=== PATIENT | male | born 1950 | race Caucasian/White ===

== ENCOUNTER 2017-12-11 20:56 | Observation (INO) | payer MEDICARE, SELFPAY ==
[2017-12-11 20:57] VITALS: BP 160/72; PULSE 70; RESP 16; TEMP 36.9; O2SAT 92; BMI 31.7
--- NOTE | 2017-12-11 21:05 | RAD_ITS ---
STUDY: X-RAY CHEST REASON FOR EXAM: Male, 67 years old. Hemoptysis and pneumonia TECHNIQUE: Frontal and lateral views of the chest. COMPARISON: June 16, 2017 FINDINGS: Increasing right middle lobe consolidation. Lungs are otherwise clear. There is no demonstrated pleural abnormality. Normal size heart. Normal mediastinum and mercedes. Normal visualized pulmonary arteries. Normal visualized aortic arch and descending thoracic aorta. Normal visualized thoracic spine. Normal visualized ribs, clavicles, and shoulders. There is no demonstrated abnormality of the visualized soft tissue structures of the upper abdomen. RAD/Chest PA and Lateral IMPRESSION: Increasing right middle lobe consolidation Electronically Signed: Nikolay Costa MD at 21:31 EDT , Service support ,
[2017-12-11 21:50] VITALS: O2SAT 94
[2017-12-11 21:52] VITALS: BP 150/64; PULSE 66; RESP 20; O2SAT 95
--- NOTE | 2017-12-11 22:16 | EKG12_ITS ---
Test Reason : SOB Blood Pressure : / mmHG Vent. Rate : 057 BPM Atrial Rate : 057 BPM P-R Int : 160 ms QRS Dur : 106 ms QT Int : 450 ms P-R-T Axes : 039 -13 022 degrees QTc Int : 438 ms Sinus bradycardia Leftward axis Confirmed by SOPHIE PATTON, ROBERT ([id number]), recruiting coordinator EDISON MIRAMONTES ([id number] on 12/13/2017 2:50:09 PM Referred By: DR GARCIA Confirmed By:ROBERT BARRIOS MD
--- NOTE | 2017-12-11 22:17 | CT_ITS ---
STUDY: CT CHEST WITH CONTRAST REASON FOR EXAM: Male, 67 years old. Wheezing and shortness of breath. Hemoptysis RADIATION DOSAGE (If Supplied By Facility): CTDIvol = ( 59.40 ) mGy, DLP = ( 803.39 ) mGycm TECHNIQUE: Transaxial imaging was performed following intravenous administration of 100ML ml of Isovue 300 contrast material. Individualized dose optimization techniques were used for this CT. COMPARISON: None. FINDINGS: There is complete atelectasis of the right middle lobe. There is an obstructing mass which encompasses the right middle lobe bronchus measuring approximately 3.4 x 3.0 cm. No pleural effusion or pneumothorax. Normal heart and pericardium. Shotty mediastinal lymph nodes are noted. Normal hilar regions. Normal enhanced pulmonary arteries. Normal aorta arch and descending thoracic aorta. There are multi-level degenerative changes of the thoracic spine. There are hypoattenuated lesions in the left upper renal pole. CT/Chest WITH Contrast IMPRESSION: 1. Obstructing mass which encompasses the right middle lobe bronchus with associated complete atelectasis of the right middle lobe. 2. Simple appearing left upper renal pole cyst. Electronically Signed: Jed Martinez MD at 0:11 EDT Tel , Service support ,
--- NOTE | 2017-12-11 22:25 | ED.VISSUMM ---
- ER Visit Summary Date of Service: 12/11/17 Chief Complaint: Dyspnea History of Present Illness: The patient is a 67 M who presents for shortness of breath and now coughing up blood-tinged mucus. Patient states he had similar symptoms last May, and was diagnosed with pneumonia. He was discharged home on Levaquin and had improvement in his symptoms, however symptoms returned approximately 2 days after completion of the antibiotics. He states he never completely felt well again. He is seen his doctor twice for these complaints but has had no further antibiotic treatments. Patient states 2 days ago his symptoms began to worsen, and he had an increase in bloody mucousy sputum tonight. He endorses the cough, chest congestion, a feeling like there is loose mucus in his throat that he cannot cough up. Denies fever or chest pain. Does have sensation of postnasal drainage. He is not on any blood thinners. Former smoker. No diagnosed asthma or COPD. No coronary artery disease. Medical history remarkable for hypertension and hypercholesterolemia. Physical Examination: Vital signs: afebrile, hemodynamically stable, no hypoxia on room air General: well nourished, well developed, in no distress Skin: warm, dry, no rash, no pallor HEENT: normocephalic and atraumatic; PERRL, EOMI, moist mucous membranes Cardiovascular: regular rate and rhythm without murmurs, no peripheral edema, 2+ pulses all distal extremities Respiratory: No increased work of breathing, lungs show diffuse mild wheezing, rhonchi noted in the right mena Abdominal: Abdomen is soft, nontender with normoactive bowel sounds, no guarding or rebound, no masses MSK: Moves all extremities, no deformities, normal strength Neuro: Awake and alert, oriented ?4. No facial droop, sensation and motor function intact and symmetric Test Results: Abnormal Lab Results 12/11/17 12/11/17 12/11/17 10:28 10:28 10:28 WBC 9.0 RBC 4.45 L Hgb 13.0 Hct 39.4 L MCV 88.5 MCH 29.2 MCHC 33.0 RDW 12.5 RDW Differential 40.1 Plt Count 256 MPV 8.9 Immature Gran % (Auto) 0.200 Neut % (Auto) 64.5 Lymph % (Auto) 26.1 [place] % (Auto) 6.9 Eos % (Auto) 2.1 Baso % (Auto) 0.2 Absolute Neuts (auto) 5.8 Absolute Lymphs (auto) 2.36 Total Counted Not Reportable Sodium 136 Potassium 3.9 Chloride 99 Carbon Dioxide 32.0 Anion Gap 5 BUN 20 H Creatinine 1.30 Estim Creat Clear Calc 55.14 Est GFR (MDRD) Af Amer 71 Est GFR (MDRD) Non-Af 59 L BUN/Creatinine Ratio 15.4 Glucose 105 Lactic Acid 1.1 Calcium 9.1 Troponin I < 0.015 Clinical Impression(s) from Imaging Studies Chest X-Ray 12/11/17 21:05 IMPRESSION: Increasing right middle lobe consolidation Electronically Signed: Nikolay Costa MD at 21:31 EDT , Service support , Chest CT 12/11/17 22:17 IMPRESSION: 1. Obstructing mass which encompasses the right middle lobe bronchus with associated complete atelectasis of the right middle lobe. 2. Simple appearing left upper renal pole cyst. Electronically Signed: Jed Martinez MD at 0:11 EDT Tel , Service support , Emergency Department Course and Treatment: Patient presents for worsening of his shortness of breath, now with coughing up bloody mucus again, similar to his symptoms last May. Patient has wheezing all lung mena, and thus was given a series of breathing treatments, with subjective improvement in his respiratory effort. X-ray was performed that showed right middle lobe infiltrate, worse when compared to the x-ray from May. Because patient has the infiltrate in the same location, and he stated his symptoms never resolved, a CT of the chest was performed to look for any further pathology other than pneumonia. In the meantime patient was given Rocephin and azithromycin for suspected pneumonia. Labs showed no leukocytosis, no electrolyte derangements, troponin negative. Lactate within normal limits. CT showed an obstructing mass in the right lung, encompassing the right middle lobe bronchus, resulting in complete atelectasis of the right middle lobe. This is very suspicious for malignancy. Patient was discussed with the hospitalist, who will admit the patient for further workup, anticipating bronchoscopy with biopsy for further characterization of the mass. Pulmonology is currently on page for consultation on this patient. Plan was discussed with the patient, and patient was amenable to admission. Treatment Plan: [] Disposition: [] Impression: New lung mass with right middle lobe collapse, hemoptysis This note was generated with [employer] dictation software. It may contain incorrect words, spelling, and punctuation that were not noted in review of the chart prior to signing ED Disposition - Plan for ED Patient: Chief Complaint: Shortness of Breath Referrals: Semaj Hancock MD [Primary Care Provider] -
[2017-12-11] MEDS: 0.9% Normal Saline 1,000 ML 999 ML IV (22:37)
[2017-12-11] MEDS: Ipratropium/Albuterol Sulfate 3 ML AMPUL.NEB INHALATION (22:39)
[2017-12-11 22:40] VITALS: PULSE 66; RESP 20
[2017-12-11 22:56] LABS: Absolute Lymphocyte Count 2.36 X10^3/ul (0.83-4.51); Absolute Neutrophil Count 5.8 X10^3/uL (2.0-7.7); Basophil# 0.02 X10^3/uL; Basophil% 0.2 % (0-1); Eosinophil# 0.19 X10^3/uL; Eosinophils% 2.1 % (0-5); Hematocrit 39.4 % (40-54); Lymphocyte # 2.36 X10^3/ul (4.0); Lymphocyte % 26.1 % (19-41); Mean Corpuscular Hgb 29.2 pg (27.0-32.0); Mean Corpuscular Volume 88.5 fL (80-94); Mean Platelet Vol. 8.9 fl (6.2-12.0); Monocyte# 0.62 X10^3/uL; Monocyte% 6.9 % (0-10); Neutrophil # 5.83 X10^3/uL (2.7-7.7); Neutrophil % 64.5 % (47-70); POSITIVE COUNT NO; POSITIVE DIFFERENTIAL NO; POSITIVE MORPHOLOGY NO; Platelet Count 256 K/mm3 (150-450); RBC Distribution Width CV 12.5 % (11.6-14.6); RBC Distribution Width SD 40.1 fl (35.1-43.9); Red Blood Count 4.45 M/mm3 (4.6-6.2)
[2017-12-11 22:57] LABS: Anion Gap 5 (5-15); BUN 20 mg/dL (7-18); BUN/Creat Ratio 15.4 RATIO (10-20); Calcium,Total 9.1 mg/dL (8.5-10.1); Chloride 99 mmol/L (98-107); EST Glomerular Filtration Rate 59 mL/min (>60); Est Glom Filt Rate - Afr Amer 71 mL/min (>60); Estimated Creatinine Clearance 55.14 ml/min; Glucose 105 mg/dL (74-106); Potassium 3.9 mmol/L (3.5-5.1); Sodium Level 136 mmol/L (136-145)
[2017-12-11 23:00] VITALS: PULSE 65; RESP 18
[2017-12-11] MEDS: Albuterol 2.5 MG/3 ML VIAL.NEB. INHALATION ×2 (23:00→23:45)
[2017-12-11 23:02] LABS: Lactic Acid 1.1 mmol/L (0.4-2.0)
[2017-12-11 23:51] VITALS: PULSE 90; RESP 18
[2017-12-12] MEDS: Ceftriaxone 1 GM/50 ML BAG IV (00:09)
[2017-12-12 02:56] VITALS: BP 115/59; PULSE 72; PULSE 73; RESP 20; RESP 21; O2SAT 94; O2SAT 95
--- NOTE | 2017-12-12 03:24 | PCM.HP.STD ---
Problem List (1) Hemoptysis Status: Acute (2) Lung mass Status: Acute (3) Pneumonia Status: Acute History of Present Illness Date of Admission: 12/12/17 Chief Complaint: hemoptysis The patient is a 67 year old M is been his normal state of health but began coughing up blood on the . Patient has coughed up blood before that stopped spontaneously. Patient sought attention in the emergency room and had a CAT scan that showed right middle lobe was obstructed with a possible mass. Patient received antibiotics and patient is being self-limited to have further evaluation of the lung mass. [] Past Medical History Medical History: Medical History (Last Updated 12/12/17 @ 03:25 by Alexandr Olmstead DO) Hyperlipidemia E78.5 Hypertension I10 Allergies No Known Allergies Allergy (Verified 12/11/17 20:57) Home Medications: Ambulatory Orders Medication Instructions Recorded Hydrochlorothiazide [Hctz] 25 mg PO DAILY 06/16/17 Metoprolol Tartrate [Lopressor 50 mg PO DAILY 06/16/17 (beta shorty)] Simvastatin [Zocor] 40 mg PO DAILY 06/16/17 [place]-3 Fatty Acids/Fish Oil [Fish 1 each PO DAILY 12/11/17 Oil 1,000 mg Capsule] Smoking Status: Former smoker Tobacco Use: Non-smoker Alcohol: None Drugs: None - *Family History Maternal History Items: - - no malignancy Review of Systems Constitutional: Denies: Chills, Fever, Weight Change Eyes: Denies: Blurred vision, Double vision HEENT: Denies: Head Aches, Sinus Congestion, Sinus Drainage Cardiovascular: Denies: Chest Pain, Palpitations Respiratory: Reports: Cough, Hemoptysis, Sputum production Gastrointestinal: Denies: Abdominal Pain, Nausea, Vomiting Genitourinary: Denies: Dysuria Musculoskeletal: Denies: Joint Pain, Joint Tenderness Skin: Denies: Rash, Wounds Neurological: Denies: Numbness, Tingling, Focal weakness Psychiatric: Denies: Anxiety, Depression Hematologic/ Lymphatic: Denies: Easy Bruising, Easy Bleeding, Hx of blood clot Comment: Otherwise all review systems are negative except for as mentioned above in the HPI and review of systems. VTE Information - Inpt Only VTE Present on Admission: No VTE Mechan Device Prophylaxis: SCD's VTE Pharm Prophylaxis ordered?: No Reason prophylaxis not ordered:: Medical Contraindication Patient Problems: Active and Suspected Problems Hemoptysis (Acute) Lung mass (Acute) Pneumonia (Acute) - Physical Exam General: Alert, Cooperative, No apparent distress HEENT: Atraumatic, Normocephalic Neck: No Nodes, Thyroid Normal Size and Texture Lungs: Clear to auscultation, Normal air movement, No rhonchi, No wheeze Cardiovascular: Regular rate, Regular Rhythm, Normal S1, Normal S2 Abdomen: Bowel Sounds Present, Soft, Non Tender, Non-Distended, No Hepato-splenomegaly Extremities: No edema, No Calf Tenderness Skin: No rashes, No breakdown Psych/Mental Status: Normal Affect, Appropriate Vital Signs Temp Pulse Resp BP Pulse Ox 36.9 C 73 21 H 115/59 L 95 12/11/17 20:57 12/12/17 02:56 12/12/17 02:56 12/12/17 02:56 12/12/17 02:56 Assessment/Plan All Active Problems Hemoptysis (Acute) Lung mass (Acute) Pneumonia (Acute) 1. Hemoptysis Likely due to the lung mass or pneumonia Monitor 2. Lung mass Consult pulmonology for input and see if that may be amenable to a bronchoscopy or not. If so then patient would have a biopsy and patient told that he would need to follow-up with oncology after the biopsy results are known. 3. Pneumonia Potentially pneumococcal but this may be just postobstructive infiltrate due to the lung mass Patient will be on empiric azithromycin and Rocephin 4. DVT prophylaxis with SCDs. Chemical prophylaxis contraindicated in light of hemoptysis. Code Visit Inpatient E&M: 71794 Init Hosp L2
--- NOTE | 2017-12-12 03:29 | HP.PCM_ITS ---
Problem List (1) Hemoptysis Status: Acute (2) Lung mass Status: Acute (3) Pneumonia Status: Acute History of Present Illness Date of Admission: 12/12/17 Chief Complaint: hemoptysis The patient is a 67 year old M is been his normal state of health but began coughing up blood on the . Patient has coughed up blood before that stopped spontaneously. Patient sought attention in the emergency room and had a CAT scan that showed right middle lobe was obstructed with a possible mass. Patient received antibiotics and patient is being self-limited to have further evaluation of the lung mass. [] Past Medical History Medical History: Medical History (Last Updated 12/12/17 @ 03:25 by Alexandr Olmstead DO) Hyperlipidemia E78.5 Hypertension I10 Allergies No Known Allergies Allergy (Verified 12/11/17 20:57) Home Medications: Ambulatory Orders Medication Instructions Recorded Hydrochlorothiazide [Hctz] 25 mg PO DAILY 06/16/17 Metoprolol Tartrate [Lopressor 50 mg PO DAILY 06/16/17 (beta shorty)] Simvastatin [Zocor] 40 mg PO DAILY 06/16/17 [place]-3 Fatty Acids/Fish Oil [Fish 1 each PO DAILY 12/11/17 Oil 1,000 mg Capsule] Smoking Status: Former smoker Tobacco Use: Non-smoker Alcohol: None Drugs: None - *Family History Maternal History Items: - - no malignancy Review of Systems Constitutional: Denies: Chills, Fever, Weight Change Eyes: Denies: Blurred vision, Double vision HEENT: Denies: Head Aches, Sinus Congestion, Sinus Drainage Cardiovascular: Denies: Chest Pain, Palpitations Respiratory: Reports: Cough, Hemoptysis, Sputum production Gastrointestinal: Denies: Abdominal Pain, Nausea, Vomiting Genitourinary: Denies: Dysuria Musculoskeletal: Denies: Joint Pain, Joint Tenderness Skin: Denies: Rash, Wounds Neurological: Denies: Numbness, Tingling, Focal weakness Psychiatric: Denies: Anxiety, Depression Hematologic/ Lymphatic: Denies: Easy Bruising, Easy Bleeding, Hx of blood clot Comment: Otherwise all review systems are negative except for as mentioned above in the HPI and review of systems. VTE Information - Inpt Only VTE Present on Admission: No VTE Mechan Device Prophylaxis: SCD's VTE Pharm Prophylaxis ordered?: No Reason prophylaxis not ordered:: Medical Contraindication Patient Problems: Active and Suspected Problems Hemoptysis (Acute) Lung mass (Acute) Pneumonia (Acute) - Physical Exam General: Alert, Cooperative, No apparent distress HEENT: Atraumatic, Normocephalic Neck: No Nodes, Thyroid Normal Size and Texture Lungs: Clear to auscultation, Normal air movement, No rhonchi, No wheeze Cardiovascular: Regular rate, Regular Rhythm, Normal S1, Normal S2 Abdomen: Bowel Sounds Present, Soft, Non Tender, Non-Distended, No Hepato- splenomegaly Extremities: No edema, No Calf Tenderness Skin: No rashes, No breakdown Psych/Mental Status: Normal Affect, Appropriate Vital Signs Temp Pulse Resp BP Pulse Ox 36.9 C 73 21 H 115/59 L 95 12/11/17 20:57 12/12/17 02:56 12/12/17 02:56 12/12/17 02:56 12/12/17 02:56 Assessment/Plan All Active Problems Hemoptysis (Acute) Lung mass (Acute) Pneumonia (Acute) 1. Hemoptysis * Likely due to the lung mass or pneumonia * Monitor 2. Lung mass * Consult pulmonology for input and see if that may be amenable to a bronchoscopy or not. * If so then patient would have a biopsy and patient told that he would need to follow-up with oncology after the biopsy results are known. 3. Pneumonia * Potentially pneumococcal but this may be just postobstructive infiltrate due to the lung mass * Patient will be on empiric azithromycin and Rocephin 4. DVT prophylaxis with SCDs. Chemical prophylaxis contraindicated in light of hemoptysis. Code Visit Inpatient E&M: 44033 Init Hosp L2
[2017-12-12 03:41] VITALS: BMI 32.8
[2017-12-12 04:02] VITALS: BP 139/61; PULSE 66; RESP 22; TEMP 36.8; O2SAT 94
[2017-12-12 06:57] LABS: Absolute Lymphocyte Count 1.61 X10^3/ul (0.83-4.51); Absolute Neutrophil Count 6.9 X10^3/uL (2.0-7.7); Basophil# 0.02 X10^3/uL; Basophil% 0.2 % (0-1); Eosinophil# 0.05 X10^3/uL; Eosinophils% 0.5 % (0-5); Hematocrit 36.1 % (40-54); Lymphocyte # 1.61 X10^3/ul (4.0); Lymphocyte % 17.5 % (19-41); Mean Corp Hgb Conc 33.2 g/gl (32-36); Mean Corpuscular Hgb 29.6 pg (27.0-32.0); Mean Corpuscular Volume 89.1 fL (80-94); Mean Platelet Vol. 9.1 fl (6.2-12.0); Monocyte# 0.64 X10^3/uL; Neutrophil # 6.86 X10^3/uL (2.7-7.7); Neutrophil % 74.7 % (47-70); Platelet Count 251 K/mm3 (150-450); RBC Distribution Width CV 12.4 % (11.6-14.6); RBC Distribution Width SD 39.8 fl (35.1-43.9); Red Blood Count 4.05 M/mm3 (4.6-6.2); White Blood Count 9.2 K/mm3 (4.4-11.0)
[2017-12-12 06:58] LABS: POSITIVE COUNT NO; POSITIVE DIFFERENTIAL NO; POSITIVE MORPHOLOGY NO
[2017-12-12 07:04] LABS: Anion Gap 10 (5-15); BUN 19 mg/dL (7-18); BUN/Creat Ratio 17.1 RATIO (10-20); Calcium,Total 8.4 mg/dL (8.5-10.1); Chloride 100 mmol/L (98-107); Creatinine, Serum 1.11 mg/dL (0.70-1.30); EST Glomerular Filtration Rate 70 mL/min (>60); Est Glom Filt Rate - Afr Amer 85 mL/min (>60); Estimated Creatinine Clearance 64.58 ml/min; Glucose 103 mg/dL (74-106); Potassium 3.7 mmol/L (3.5-5.1); Sodium Level 139 mmol/L (136-145)
[2017-12-12 07:24] VITALS: BP 124/62; PULSE 67; RESP 18; TEMP 36.6; O2SAT 95
[2017-12-12] MEDS: Ipratropium/Albuterol Sulfate 3 ML AMPUL.NEB INHALATION ×2 (07:52→11:04)
[2017-12-12 09:18] VITALS: PULSE 72
[2017-12-12] MEDS: hydroCHLOROthiazide 25 MG Tablet PO (09:18)
[2017-12-12] MEDS: Metoprolol Tartrate 50 MG Tablet PO (09:18)
[2017-12-12] MEDS: guaiFENesin 1,200 MG Tablet 1200 MG PO (09:19)
[2017-12-12] MEDS: Omega-3 Acid Ethyl Esters 1 GM Capsule PO (09:19)
--- NOTE | 2017-12-12 09:19 | PCM.CONS.GEN ---
Problem List (1) Hemoptysis Status: Acute (2) Lung mass Status: Acute (3) Pneumonia Status: Acute Reason for Consult Date of Consultation: 12/12/17 Reason for Consultation: lung mass History of Present Illness: The patient is a 67 year old M with no significant PMH except hypertension and hyperlipidemia, presents to the ED on 12/11/17 with complaints of a 2 day history of worsening dyspnea, cough, and hemoptysis. The patient was diagnosed with right middle lobe pneumonia at [facility] ED in May 2017 and had similar symptoms at that time. He was discharged on Levaquin with noted improvement, however a few days after completion of the antibiotic, he again worsened. He has been following up with his primary care physician. He denies any recent antibiotics, steroids, or hospitalizations. Patient reports he has just felt unwell ever since. He has intermittent issues with clearing secretions from his chest. Denies any fevers or chills. He has not had any hemoptysis since his initial presentation in May, other than current course. Initial vitals blood pressure 160/72, pulse 70, RR 16, 98.4?F, and 92% on room air. Chest x-ray on arrival showed an increasing right middle lobe consolidation. Chest CT was obtained and showed atelectasis the right middle lobe and an obstructing mass which encompasses the right middle lobe bronchus measuring approximately 3.4 x 3.0 cm. There is no pleural effusion or pneumothorax. There are shotty mediastinal lymph nodes present. Simple appearing left upper renal pole cyst was also observed. Blood work revealed normal white count and hemoglobin. BUN was 20 and creatinine 1.3. Lactate and troponin were negative. Blood cultures were obtained and are pending. A urine strep/Legionella antigen was negative. The patient was given several breathing treatments with subjective improvement in his dyspnea. He was given Rocephin and azithromycin to cover for pneumonia. Pulmonology was consulted for further workup of his right middle lobe mass. Patient was transferred to the medical surgical unit for further evaluation and management. Patient has remained afebrile and hemodynamically stable. He has not required any oxygen supplementation. Patient denies any past pulmonary disease such as COPD or asthma. He does have a significant smoking history of 2.5 PPD x 20 years, quitting in 2009. He has never had any pulmonary function tests. He was placed on an albuterol inhaler 3-4 years ago that he used briefly, he is unsure what was happening at that time. He typically does not have any dyspnea and is able to perform his daily functions without difficulty. He denies any occupational or environmental exposures. 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 He denies any past colonoscopies, however he does do a yearly stool test. [place] any family history of cancer. Past Medical History Medical History: Medical History (Last Updated 12/12/17 @ 03:25 by Alexandr Olmstead DO) Hyperlipidemia E78.5 Hypertension I10 Allergies No Known Allergies Allergy (Verified 12/11/17 20:57) Home Medications: Ambulatory Orders Medication Instructions Recorded Hydrochlorothiazide [Hctz] 25 mg PO DAILY 06/16/17 Metoprolol Tartrate [Lopressor 50 mg PO BID 06/16/17 (beta shorty)] Simvastatin [Zocor] 40 mg PO QHS 06/16/17 [place]-3 Fatty Acids/Fish Oil [Fish 1 each PO DAILY 12/11/17 Oil 1,000 mg Capsule] Surgical History: - - hernia repair as infant, otherwise no surgical hx Psychiatric History: No pertinent psych hx Lives: Spouse/ Significant Other Smoking Status: Former smoker - 50 [id number], quit 2009 Tobacco Use: Non-smoker Alcohol: None Drugs: None - *Family History Maternal History Items: - - no malignancy. from CHF in her 80's Paternal History Items: Heart Disease, - - from [place] in his 70's, no malignancies Review of Systems Constitutional: Denies: Anorexia, Chills, Fever, Night Sweats, Malaise, Weakness, Weight Change, Fatigue Eyes: Denies: Vision Change HEENT: Reports: Post Nasal Drip. Denies: Difficulty Swallowing, Hard of Hearing, Head Aches, Nasal bleeding, Sinus Congestion, Sinus Drainage, Sore Throat Cardiovascular: Denies: Chest Pain, Chest Tightness, Edema, Light Headedness, Orthopnea, Palpitations, Paroxysmal Noc. Dyspnea, Syncope Respiratory: Reports: Cough, Hemoptysis, Sputum production - Clear, Wheezing - Intermittent, - - Dyspnea on exertion has resolved. Denies: Pleuritic Pain, Shortness of Breath Gastrointestinal: Denies: Abdominal Pain, Constipation, Diarrhea, Dyspepsia, Hematemesis, Hematochezia, Nausea, Melena, Vomiting Genitourinary: Denies: Dysuria, Frequency, Hematuria, Nocturia, Retention Musculoskeletal: Denies: Back Pain, Muscle pain, Neck Pain Skin: Denies: Rash, Wounds Neurological: Denies: Balance problems, Change in Speech, Confusion, Difficulty swallowing, Focal weakness, Numbness, Tingling, Tremor, Seizures Psychiatric: Denies: Anxiety, Depression Endocrine: Denies: Change in Body Habitus, Polydipsia, Polyuria Hematologic/ Lymphatic: Denies: Adenopathy, Anemia, Easy Bruising, Easy Bleeding, Hx of blood clot, Hx of blood transfusion Patient Problems: Active and Suspected Problems (Last Updated 12/12/17 @ 03:25 by Alexandr Olmstead DO) Hemoptysis (Acute) Lung mass (Acute) Pneumonia (Acute) Subjective: Patient was seen and examined. He is a pleasant 67-year-old male that does not appear to be in any acute distress. Maintaining appropriate saturations on room air. Denies any hemoptysis today. He does have a productive cough of clear to white sputum, but only occasionally. Denies any fever or chills. No chest pain or shortness of breath. Objective: Clinical Impression(s) from Imaging Studies Chest X-Ray 12/11/17 21:05 IMPRESSION: Increasing right middle lobe consolidation Electronically Signed: Nikolay Costa MD at 21:31 EDT , Service support , Chest CT 12/11/17 22:17 IMPRESSION: 1. Obstructing mass which encompasses the right middle lobe bronchus with associated complete atelectasis of the right middle lobe. 2. Simple appearing left upper renal pole cyst. Electronically Signed: Jed Martinez MD at 0:11 EDT Tel , Service support , - Physical Exam General: Alert, Oriented x3, Cooperative, No apparent distress, Well developed, Well nourished, - - obese HEENT: Atraumatic, PERRLA, Normocephalic Oral: Moist Mucosa, No Gingival or Mucosal Lesions/ Ulcerations Neck: Supple, No JVD, No Nodes, Trachea Midline, - - No palpable masses Lungs: Diminished, - - Rhonchi and wheezing to the right lung, mild. Left clear but diminished. Cardiovascular: Regular rate, Regular Rhythm, Normal S1, Normal S2, No murmurs, PMI Normal, No rub noted, No Gallop Abdomen: Bowel Sounds Present, Soft, Non Tender, Non-Distended, No Hepato-splenomegaly, Obese, No hernias noted Extremities: No clubbing, No cyanosis, No edema, Capillary Refill Less than 3 Seconds, No Calf Tenderness, Peripheral Pulses Normal Skin: No rashes, No breakdown Musculoskeletal: No Tenderness to Palpation of Joints or Extremities Lymphatic: No Cervical, Supraclavicular, or Inguinal Adenopathy Neurological: Cranial nerves II-XII grossly intact, Neuro grossly intact, Motor Exam 5/5 strength throughout Psych/Mental Status: Alert and oriented to time, place, person, mood and affect Vital Signs Temp Pulse Resp BP Pulse Ox 98 F 72 18 124/62 H 95 12/12/17 07:24 12/12/17 09:18 12/12/17 07:24 12/12/17 07:24 12/12/17 07:24 Oxygen Delivery Method Room Air Weight: 222 lb 4 oz Body Mass Index (BMI) 32.8 Intake and Output for Last 24 Hours 12/10/17 12/11/17 12/12/17 23:59 23:59 23:59 Intake Total 20 / 20 Balance 20 / 20 Microbiology Past 72 Hours 12/12/17 06:08 Streptococcus pneumoniae Antigen (M - Final Urine, Clean Catch 12/12/17 06:08 Legionella Antigen - Final Urine, Clean Catch Laboratory Tests Past 24 Hrs 12/12/17 12/12/17 06:24 06:24 WBC 9.2 RBC 4.05 L Hgb 12.0 L Hct 36.1 L MCV 89.1 MCH 29.6 MCHC 33.2 RDW 12.4 RDW Differential 39.8 Plt Count 251 MPV 9.1 Immature Gran % (Auto) 0.100 Neut % (Auto) 74.7 H Lymph % (Auto) 17.5 L [place] % (Auto) 7.0 Eos % (Auto) 0.5 Baso % (Auto) 0.2 Absolute Neuts (auto) 6.9 Absolute Lymphs (auto) 1.61 Total Counted Not Reportable Sodium 139 Potassium 3.7 Chloride 100 Carbon Dioxide 29.0 Anion Gap 10 BUN 19 H Creatinine 1.11 Estim Creat Clear Calc 64.58 Est GFR (MDRD) Af Amer 85 Est GFR (MDRD) Non-Af 70 BUN/Creatinine Ratio 17.1 Glucose 103 Calcium 8.4 L Assessment/Plan All Active Problems (Last Updated 12/12/17 @ 03:25 by Alexandr Olmstead DO) Hemoptysis (Acute) Lung mass (Acute) Pneumonia (Acute) RECOMMENDATIONS 1. Supplemental oxygen as needed 2. Encourage incentive spirometer and Acapella 3. Increase activity as tolerated 4. Continue bronchodilators, antibiotics, mucolytic 5. Patient will be scheduled as outpatient for EBUS 5. Patient can follow-up in the pulmonary clinic after his procedure at which time he will need pulmonary function tests to establish baseline pulmonary function IMPRESSIONS 1. Right middle lobe lung mass with hemoptysis and subsequent obstructive pneumonia Concerning for malignancy. Patient does have scant smoking history of [id number]. He was in the ED with similar symptoms including hemoptysis in May 2017. Concern for obstructing mass in the right middle lobe. Explanation given on bronchoscopy versus EBUS, patient would like to proceed with outpatient testing via EBUS. The patient also likely has an element of COPD given his smoking history. He has never required any inhalers with the exception of 3 years ago using albuterol briefly. Denies any dyspnea on exertion except with the last 2 episodes of obstructive pneumonia. Pulmonary testing can be pursued after procedure. 2. History of tobacco abuse in remission/hyperlipidemia/hypertension Complicates care, management, recovery, and prognosis. Encouraged ongoing smoking cessation. Blood pressures have normalized since arrival. Continue home medications as indicated. Thank you for the opportunity to participate in this patient's care, please do not hesitate contact us with any further questions or concerns. This note was generated with [employer] dictation software. It may contain incorrect words, spelling, and punctuation that were not noted in checking the note before signing.
--- NOTE | 2017-12-12 09:31 | CON.PCM_ITS ---
Problem List (1) Hemoptysis Status: Acute (2) Lung mass Status: Acute (3) Pneumonia Status: Acute Reason for Consult Date of Consultation: 12/12/17 Reason for Consultation: lung mass History of Present Illness: The patient is a 67 year old M with no significant PMH except hypertension and hyperlipidemia, presents to the ED on 12/11/17 with complaints of a 2 day history of worsening dyspnea, cough, and hemoptysis. The patient was diagnosed with right middle lobe pneumonia at [facility] ED in May 2017 and had similar symptoms at that time. He was discharged on Levaquin with noted improvement, however a few days after completion of the antibiotic, he again worsened. He has been following up with his primary care physician. He denies any recent antibiotics, steroids, or hospitalizations. Patient reports he has just felt unwell ever since. He has intermittent issues with clearing secretions from his chest. Denies any fevers or chills. He has not had any hemoptysis since his initial presentation in May, other than current course. Initial vitals blood pressure 160/72, pulse 70, RR 16, 98.4?F, and 92% on room air. Chest x-ray on arrival showed an increasing right middle lobe consolidation. Chest CT was obtained and showed atelectasis the right middle lobe and an obstructing mass which encompasses the right middle lobe bronchus measuring approximately 3.4 x 3.0 cm. There is no pleural effusion or pneumothorax. There are shotty mediastinal lymph nodes present. Simple appearing left upper renal pole cyst was also observed. Blood work revealed normal white count and hemoglobin. BUN was 20 and creatinine 1.3. Lactate and troponin were negative. Blood cultures were obtained and are pending. A urine strep/Legionella antigen was negative. The patient was given several breathing treatments with subjective improvement in his dyspnea. He was given Rocephin and azithromycin to cover for pneumonia. Pulmonology was consulted for further workup of his right middle lobe mass. Patient was transferred to the medical surgical unit for further evaluation and management. Patient has remained afebrile and hemodynamically stable. He has not required any oxygen supplementation. Patient denies any past pulmonary disease such as COPD or asthma. He does have a significant smoking history of 2.5 PPD x 20 years, quitting in 2009. He has never had any pulmonary function tests. He was placed on an albuterol inhaler 3 -4 years ago that he used briefly, he is unsure what was happening at that time. He typically does not have any dyspnea and is able to perform his daily functions without difficulty. He denies any occupational or environmental exposures. 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 He denies any past colonoscopies, however he does do a yearly stool test. [place] any family history of cancer. Past Medical History Medical History: Medical History (Last Updated 12/12/17 @ 03:25 by Alexandr Olmstead DO) Hyperlipidemia E78.5 Hypertension I10 Allergies No Known Allergies Allergy (Verified 12/11/17 20:57) Home Medications: Ambulatory Orders Medication Instructions Recorded Hydrochlorothiazide [Hctz] 25 mg PO DAILY 06/16/17 Metoprolol Tartrate [Lopressor 50 mg PO BID 06/16/17 (beta shorty)] Simvastatin [Zocor] 40 mg PO QHS 06/16/17 [place]-3 Fatty Acids/Fish Oil [Fish 1 each PO DAILY 12/11/17 Oil 1,000 mg Capsule] Surgical History: - - hernia repair as , otherwise no surgical hx Psychiatric History: No pertinent psych hx Lives: Spouse/ Significant Other Smoking Status: Former smoker - 50 [id number], quit 2009 Tobacco Use: Non-smoker Alcohol: None Drugs: None - *Family History Maternal History Items: - - no malignancy. from CHF in her 80's Paternal History Items: Heart Disease, - - from [place] in his 70's, no malignancies Review of Systems Constitutional: Denies: Anorexia, Chills, Fever, Night Sweats, Malaise, Weakness , Weight Change, Fatigue Eyes: Denies: Vision Change HEENT: Reports: Post Nasal Drip. Denies: Difficulty Swallowing, Hard of Hearing , Head Aches, Nasal bleeding, Sinus Congestion, Sinus Drainage, Sore Throat Cardiovascular: Denies: Chest Pain, Chest Tightness, Edema, Light Headedness, Orthopnea, Palpitations, Paroxysmal Noc. Dyspnea, Syncope Respiratory: Reports: Cough, Hemoptysis, Sputum production - Clear, Wheezing - Intermittent, - - Dyspnea on exertion has resolved. Denies: Pleuritic Pain, Shortness of Breath Gastrointestinal: Denies: Abdominal Pain, Constipation, Diarrhea, Dyspepsia, Hematemesis, Hematochezia, Nausea, Melena, Vomiting Genitourinary: Denies: Dysuria, Frequency, Hematuria, Nocturia, Retention Musculoskeletal: Denies: Back Pain, Muscle pain, Neck Pain Skin: Denies: Rash, Wounds Neurological: Denies: Balance problems, Change in Speech, Confusion, Difficulty swallowing, Focal weakness, Numbness, Tingling, Tremor, Seizures Psychiatric: Denies: Anxiety, Depression Endocrine: Denies: Change in Body Habitus, Polydipsia, Polyuria Hematologic/ Lymphatic: Denies: Adenopathy, Anemia, Easy Bruising, Easy Bleeding , Hx of blood clot, Hx of blood transfusion Patient Problems: Active and Suspected Problems (Last Updated 12/12/17 @ 03:25 by Alexandr Olmstead DO ) Hemoptysis (Acute) Lung mass (Acute) Pneumonia (Acute) Subjective: Patient was seen and examined. He is a pleasant 67-year-old male that does not appear to be in any acute distress. Maintaining appropriate saturations on room air. Denies any hemoptysis today. He does have a productive cough of clear to white sputum, but only occasionally. Denies any fever or chills. No chest pain or shortness of breath. Objective: Clinical Impression(s) from Imaging Studies Chest X-Ray 12/11/17 21:05 IMPRESSION: Increasing right middle lobe consolidation Electronically Signed: Nikolay Costa MD at 21:31 EDT , Service support , Chest CT 12/11/17 22:17 IMPRESSION: 1. Obstructing mass which encompasses the right middle lobe bronchus with associated complete atelectasis of the right middle lobe. 2. Simple appearing left upper renal pole cyst. Electronically Signed: Jed Martinez MD at 0:11 EDT Tel , Service support , - Physical Exam General: Alert, Oriented x3, Cooperative, No apparent distress, Well developed, Well nourished, - - obese HEENT: Atraumatic, PERRLA, Normocephalic Oral: Moist Mucosa, No Gingival or Mucosal Lesions/ Ulcerations Neck: Supple, No JVD, No Nodes, Trachea Midline, - - No palpable masses Lungs: Diminished, - - Rhonchi and wheezing to the right lung, mild. Left clear but diminished. Cardiovascular: Regular rate, Regular Rhythm, Normal S1, Normal S2, No murmurs, PMI Normal, No rub noted, No Gallop Abdomen: Bowel Sounds Present, Soft, Non Tender, Non-Distended, No Hepato- splenomegaly, Obese, No hernias noted Extremities: No clubbing, No cyanosis, No edema, Capillary Refill Less than 3 Seconds, No Calf Tenderness, Peripheral Pulses Normal Skin: No rashes, No breakdown Musculoskeletal: No Tenderness to Palpation of Joints or Extremities Lymphatic: No Cervical, Supraclavicular, or Inguinal Adenopathy Neurological: Cranial nerves II-XII grossly intact, Neuro grossly intact, Motor Exam 5/5 strength throughout Psych/Mental Status: Alert and oriented to time, place, person, mood and affect Vital Signs Temp Pulse Resp BP Pulse Ox 98 F 72 18 124/62 H 95 12/12/17 07:24 12/12/17 09:18 12/12/17 07:24 12/12/17 07:24 12/12/17 07:24 Oxygen Delivery Method Room Air Weight: 222 lb 4 oz Body Mass Index (BMI) 32.8 Intake and Output for Last 24 Hours 12/10/17 12/11/17 12/12/17 23:59 23:59 23:59 Intake Total 20 / 20 Balance 20 / 20 Microbiology Past 72 Hours 12/12/17 06:08 Streptococcus pneumoniae Antigen (M - Final Urine, Clean Catch 12/12/17 06:08 Legionella Antigen - Final Urine, Clean Catch Laboratory Tests Past 24 Hrs 12/12/17 12/12/17 06:24 06:24 WBC 9.2 RBC 4.05 L Hgb 12.0 L Hct 36.1 L MCV 89.1 MCH 29.6 MCHC 33.2 RDW 12.4 RDW Differential 39.8 Plt Count 251 MPV 9.1 Immature Gran % (Auto) 0.100 Neut % (Auto) 74.7 H Lymph % (Auto) 17.5 L [place] % (Auto) 7.0 Eos % (Auto) 0.5 Baso % (Auto) 0.2 Absolute Neuts (auto) 6.9 Absolute Lymphs (auto) 1.61 Total Counted Not Reportable Sodium 139 Potassium 3.7 Chloride 100 Carbon Dioxide 29.0 Anion Gap 10 BUN 19 H Creatinine 1.11 Estim Creat Clear Calc 64.58 Est GFR (MDRD) Af Amer 85 Est GFR (MDRD) Non-Af 70 BUN/Creatinine Ratio 17.1 Glucose 103 Calcium 8.4 L Assessment/Plan All Active Problems (Last Updated 12/12/17 @ 03:25 by Alexandr Olmstead DO) Hemoptysis (Acute) Lung mass (Acute) Pneumonia (Acute) RECOMMENDATIONS 1. Supplemental oxygen as needed 2. Encourage incentive spirometer and Acapella 3. Increase activity as tolerated 4. Continue bronchodilators, antibiotics, mucolytic 5. Patient will be scheduled as outpatient for EBUS 5. Patient can follow-up in the pulmonary clinic after his procedure at which time he will need pulmonary function tests to establish baseline pulmonary function IMPRESSIONS 1. Right middle lobe lung mass with hemoptysis and subsequent obstructive pneumonia Concerning for malignancy. Patient does have scant smoking history of 50-pack- year. He was in the ED with similar symptoms including hemoptysis in May 2017. Concern for obstructing mass in the right middle lobe. Explanation given on bronchoscopy versus EBUS, patient would like to proceed with outpatient testing via EBUS. The patient also likely has an element of COPD given his smoking history. He has never required any inhalers with the exception of 3 years ago using albuterol briefly. Denies any dyspnea on exertion except with the last 2 episodes of obstructive pneumonia. Pulmonary testing can be pursued after procedure. 2. History of tobacco abuse in remission/hyperlipidemia/hypertension Complicates care, management, recovery, and prognosis. Encouraged ongoing smoking cessation. Blood pressures have normalized since arrival. Continue home medications as indicated. Thank you for the opportunity to participate in this patient's care, please do not hesitate contact us with any further questions or concerns. This note was generated with [employer] dictation software. It may contain incorrect words, spelling, and punctuation that were not noted in checking the note before signing.
--- NOTE | 2017-12-12 10:56 | CASEMGMT ---
RN BRII Face to Face with patient for initial transition planning/care coordination assessment. RN CM introduced self and role at [facility]. Patient sitting in chair, alert and oriented. Patient willing to participate in assessment and is able to answer all questions appropriately. Care providers, pharmacy, and demographics verified. Patient live with in a 1 story home with 3 steps to enter home. Patient denies need for DME at this time. Patient wishes to discharge home, denies need for home health at this time. Pt states he has no further needs or concerns at this time. CM to follow for discharge planning needs that may arise. Disposition Plan: Patient to discharge home with family support and follow-up plans in place.
[2017-12-12 11:04] VITALS: PULSE 68; RESP 16
[2017-12-12 11:39] VITALS: BP 130/71; PULSE 63; RESP 18; TEMP 36.8; O2SAT 94
--- NOTE | 2017-12-12 13:01 | PCM.DC ---
- Discharge Diagnoses Current Active Problems: Current Active and Chronic Problems (Last Updated 12/12/17 @ 03:25 by Alexandr Olmstead DO) Hemoptysis (Acute) Lung mass (Acute) Pneumonia (Acute) You will use the following diet at home:: No restrictions Discharge Activity: Return to Normal Activity Allergies/Adverse Reactions: Allergies No Known Allergies Allergy (Verified 12/11/17 20:57) Medications to take at Discharge Hydrochlorothiazide [Hctz] 25 mg PO DAILY 06/16/17 Metoprolol Tartrate [Lopressor (beta shorty)] 50 mg PO BID 06/16/17 Simvastatin [Zocor] 40 mg PO QHS 06/16/17 [place]-3 Fatty Acids/Fish Oil [Fish Oil 1,000 mg Capsule] 1 each PO DAILY 12/11/17 Albuterol IH (ProAir) [Proair Hfa] 1 puff INHALATION Q4H PRN PRN #1 inhaler 12/12/17 Azithromycin [Zithromax Z-Geoff] 250 mg PO UD #1 box 12/12/17 Guaifenesin [Mucinex] 1,200 mg PO BID #20 tab 12/12/17 Prednisone 10 mg PO UD #30 tab 12/12/17 The following prescriptions were given: Albuterol IH (ProAir) [Proair Hfa] 1 puff INHALATION Q4H PRN PRN #1 inhaler PRN Reason: Bronchospasm Azithromycin [Zithromax Z-Geoff] 250 mg PO UD #1 box Prednisone 10 mg PO UD #30 tab Guaifenesin [Mucinex] 1,200 mg PO BID #20 tab Primary Care Physician: Semaj Hancock MD [Primary Care Provider] - In 1 Week Please Follow Up With: Ryan Richey MD - 1-2 weeks Proposed Discharge Date: 12/12/17
--- NOTE | 2017-12-12 13:03 | PCM.DC.SUM ---
Discharge Date and Diagnosis Date of Admission: 12/12/17 Date of Discharge: 12/12/17 - Primary Discharge Diagnosis Active and Suspected Problems (Last Updated 12/12/17 @ 03:25 by Alexandr Olmstead DO) Hemoptysis (Acute) Lung mass (Acute) Pneumonia (Acute) Hospital Course and Treatment Summary of Care Provided: The patient is a 67 year old M who presented to the emergency room due to hemoptysis,CT scan of the chest showed right middle lobe was obstructed with a possible mass. Patient received antibiotics and was admitted to the hospital. Pulmonary medicine was consulted and the patient recommended conventional bronchoscopy and EBUS. Patient opted to follow-up as an outpatient to undergo EBUS for tissue acquisition. Was treated for possible pneumonia and COPD exacerbation with antibiotics, bronchodilators and steroids. Charge will be the stable condition. He will follow-up with Dr. Kaye in 1-2 weeks. Discharge Activity: Return to Normal Activity Home Medications: Medications to take at Discharge Hydrochlorothiazide [Hctz] 25 mg PO DAILY 06/16/17 Metoprolol Tartrate [Lopressor (beta shorty)] 50 mg PO BID 06/16/17 Simvastatin [Zocor] 40 mg PO QHS 06/16/17 [place]-3 Fatty Acids/Fish Oil [Fish Oil 1,000 mg Capsule] 1 each PO DAILY 12/11/17 Albuterol IH (ProAir) [Proair Hfa] 1 puff INHALATION Q4H PRN PRN #1 inhaler 12/12/17 Azithromycin [Zithromax Z-Geoff] 250 mg PO UD #1 box 12/12/17 Guaifenesin [Mucinex] 1,200 mg PO BID #20 tab 12/12/17 Prednisone 10 mg PO UD #30 tab 12/12/17 Following Prescrptions Were Given to Patient: Albuterol IH (ProAir) [Proair Hfa] 1 puff INHALATION Q4H PRN PRN #1 inhaler PRN Reason: Bronchospasm Azithromycin [Zithromax Z-Geoff] 250 mg PO UD #1 box Prednisone 10 mg PO UD #30 tab Guaifenesin [Mucinex] 1,200 mg PO BID #20 tab Primary Care Physician: Semaj Hancock MD [Primary Care Provider] - In 1 Week Please Follow Up With: Ryan Richey MD - 1-2 weeks Medical Necessity - Tobacco Use Smoking Status: Former smoker - 50 [id number], quit 2009 Tobacco Use: Non-smoker Meaningful Use Info Meaningful Use Diagnoses (Choose all that apply): None applicable Code Visit Inpatient E&M: 23053 Disch Hosp
== END 2017-12-12 13:53 | disposition home or self-care (01) ==
LOC: ED 22:27 → MS3 12-12 03:26
PROVIDERS: Emergency Provider Emergency Medicine; Family Provider Family Medicine; PCP Family Medicine; Visit Provider Internal Medicine
DX: J18.9 Pneumonia, unspecified organism (principal); R91.8 Other nonspecific abnormal finding of lung field; Z87.891 Personal history of nicotine dependence; I10 Essential (primary) hypertension; E78.5 Hyperlipidemia, unspecified; Z79.899 Other long term (current) drug therapy
CPT/HCPCS: 36415; 71046; 71260; 80048; 83605; 84484; 85025; 87040; 87449; 93005; 94640; 94668; 96361; 96365; 96366; 96368; 97802; 99218; 99283; J7030; Q9967; A4216; G0378

== ENCOUNTER → 2018-01-14 08:22 | Outpatient (CLI) | payer MEDICARE, SELFPAY ==
[2018-01-14 09:10] LABS: Absolute Lymphocyte Count 1.55 X10^3/ul (0.83-4.51); Absolute Neutrophil Count 6.4 X10^3/uL (2.0-7.7); Basophil# 0.02 X10^3/uL; Basophil% 0.2 % (0-1); Eosinophil# 0.25 X10^3/uL; Eosinophils% 2.8 % (0-5); Hematocrit 39.9 % (40-54); Hemoglobin 13.1 g/dl (13.0-16.5); Lymphocyte # 1.55 X10^3/ul (4.0); Lymphocyte % 17.4 % (19-41); Mean Corp Hgb Conc 32.8 g/gl (32-36); Mean Corpuscular Hgb 28.9 pg (27.0-32.0); Mean Corpuscular Volume 88.1 fL (80-94); Mean Platelet Vol. 8.8 fl (6.2-12.0); Monocyte# 0.71 X10^3/uL; Neutrophil # 6.37 X10^3/uL (2.7-7.7); Neutrophil % 71.4 % (47-70); Platelet Count 354 K/mm3 (150-450); RBC Distribution Width CV 12.5 % (11.6-14.6); RBC Distribution Width SD 40.5 fl (35.1-43.9); Red Blood Count 4.53 M/mm3 (4.6-6.2); White Blood Count 8.9 K/mm3 (4.4-11.0)
[2018-01-14 09:11] LABS: POSITIVE COUNT NO; POSITIVE DIFFERENTIAL NO; POSITIVE MORPHOLOGY NO
[2018-01-14 09:14] LABS: Prothrombin Time (Protime)PT. 13.6 SECONDS (11.7-14.9)
[2018-01-14 09:15] LABS: Partial Thromboplast Time 34.3 Seconds (24.1-36.2)
== END ==
PROVIDERS: Family Provider Family Medicine; PCP Family Medicine; Visit Provider Internal Medicine Critical Care Medicine
DX: R91.8 Other nonspecific abnormal finding of lung field (principal)
CPT/HCPCS: 36415; 85025; 85610; 85730

== ENCOUNTER 2018-01-17 11:17 | Day surgery (SDC) | payer MEDICARE, SELFPAY ==
[2018-01-17] VITALS (10 sets, daily range): BP systolic 99–148; BP diastolic 46–75; PULSE 61–84; RESP 16–22; TEMP 36.8–37.1; O2SAT 93–100; BMI 31.5
--- NOTE | 2018-01-17 | IMM_PTH ---
PATIENT: ANGEL LUIS MYRICK LOC: EN U#:[id number] AGE/SX: 67/M ROOM: RE01/17/[address]: Dr. Antonio Chin DO : 1950 BED: DIS: 01/17/2018 SPEC #: [id number] RECD: 01/21/18 10:05 STATUS: GIRMA REQ #: [id number] JENNY: 01/17/18 00:[address]: Antonio Chin DEPT: IMMUNOHISTOCHEMISTRY RECD BY: Leola Ji ENTERED: 01/21/18 10:10 SP TYPE: IMMUNO OTHR DR: Dr. Semaj Hancock MD Tissues: H - Hilum of lung, NOS Procedures: RCC (add) NAPSIN A (add) CK20 (add) CK5-6 (add) CK7 (add) CK8 (add) HEP PAR (add) PSA (add) TTF1 (add) Pankeratin (initial) P40 (add) PHYSICIAN & [address] [address] SPECIMEN INFORMATION: Tissue Source: H ? Right hilar mass Clinical Info: Right hilar mass Specimen Number: [id number] H CPT code: 91572, 96214 x10 METHODOLOGY: Deparaffinized sections of prefer/formalin-fixed tissue or PAP/DQ stained slides are incubated with monoclonal/polyclonal antibodies/oligonucleotide probes. Localization is made via biotin free immunoperoxidase method. Appropriate controls are performed and reacted as expected. Results on target cell population are indicated in the following table: RESULTS: ANTIBODY / CLONE RESULT Block H AE1-3 (AE1/AE3/PCK26) positive, focal CK7 (OV-TL12/30) negative CK8 (33fstaC11) positive, focal CK20 (KS20.8) negative TTF-1 (8G7G3/1) negative Napsin A (Rabbit Polyclonal) negative HepPar (OCh1E5) negative RCC (PN-15) negative PSA (ER-PR8) negative CK5-6 (D5 & 1684) positive P40 (BC28) positive These tests were developed and their performance characteristics determined by [facility]. They may not have been cleared or approved by the U.S. Food and Drug Administration. The FDA has determined that such clearance or approval is not necessary. INTERPRETATION: H. Right hilar mass, TBNA: Non-small cell carcinoma, favor squamous cell carcinoma. SJ:sonali 01/21/18
--- NOTE | 2018-01-17 12:50 | ASPS_PTH ---
PATIENT: ANGEL LUIS MYRICK LOC: EN U#:[id number] AGE/SX: 67/M ROOM: RE01/17/[address]: Dr. Antonio Chin DO : 1950 BED: DIS: 01/17/2018 SPEC #: [id number] RECD: 01/17/18 13:30 STATUS: GIRMA NELSON #: [id number] JENNY: 01/17/18 12:[address]: Antonio Chin DEPT: CYTOLOGY RECD BY: Brina Ruby ENTERED: 01/20/18 10:55 SP TYPE: ASPIRATION OTHR DR: Dr. Semaj Hancock MD Tissues: A - Lung, NOS B - Lung, NOS C - Lung, NOS D - Lung, NOS E - Lung, NOS F - Lung, NOS G - Lung, NOS H - Lung, NOS I - Bronchus of right middle lobe Procedures: Pap Stain (control) Special Stain Group II Surgery Specimen Level IV Diff Quik Stain (control) Cell Block Cytology Other HEADER OPERATION: EBUS and TBNA, endobronchial biopsy, washing PRE-OP DIAGNOSIS: Right hilar mass TISSUE SUBMITTED: A-C ? Site 7, D-F ? Right hilar mass, G ? Site 7, H ? Right hilar mass, I ? RML washing DIAGNOSIS CYTOLOGY A. EBUS aspiration #1, site 7: Negative for malignant cells. Adequate for evaluation, lymphocytes present. B. EBUS aspiration #2, site 7: Negative for malignant cells. Mostly blood. A few respiratory epithelial cells. C. EBUS aspiration #3, site 7: Negative for malignant cells. Adequate for evaluation lymphocytes present. D. EBUS aspiration #4, hilar mass: Malignant cells present derived from non-small cell carcinoma. E. EBUS aspiration #5, hilar mass: Malignant cells present derived from non-small cell carcinoma. F. EBUS aspiration #6, hilar mass: Malignant cells present derived from non-small cell carcinoma. G. Site 7, TBNA, fluid (cytospin and cell block): Negative for metastatic carcinoma. See cytology study and comment. H. Hilar mass, TBNA (cytospin and cell block): Malignant cells present derived from non-small cell carcinoma, favor squamous cell carcinoma. See comment. I. RML, washing (cytospin and cell block): A few atypical squamous epithelial cells are noted. SJ:sonali 01/21/18 COMMENT The specimen is evaluated at the time of procedure by Dr. Guerrero. Immediate evaluation: A. EBUS aspiration #1, site 7: Negative for malignant cells. Adequate, lymphocytes present. B. EBUS aspiration #2, site 7: Negative for malignant cells. Mostly blood. A few respiratory epithelial cells. C. EBUS aspiration #3, site 7: Negative for malignant cells. Adequate, lymphocytes present. D. EBUS aspiration #4, hilar mass: Malignant cells present derived from non-small cell carcinoma. E. EBUS aspiration #5, hilar mass: Malignant cells present derived from non-small cell carcinoma. F. EBUS aspiration #6, hilar mass: Malignant cells present derived from non-small cell carcinoma. H. Immunohistochemistry ([id number]) supports the above diagnosis. CYTOLOGY STUDY Slides are reviewed. G. Polymorphous lymphocytes are noted. Malignant cells are not identified. The specimen is adequate for evaluation. CYTOLOGY GROSS A ? Received labeled with the patient?s name, and designated ?EBUS FNA, aspiration #1, site 7.? The specimen consists of two smears submitted for immediate cytologic evaluation (wet read). B - Received labeled with the patient?s name, and designated ?EBUS FNA, aspiration #2, site 7.? The specimen consists of two smears submitted for immediate cytologic evaluation (wet read). C - Received labeled with the patient?s name, and designated ?EBUS FNA, aspiration #3, site 7.? The specimen consists of two smears submitted for immediate cytologic evaluation (wet read). D - Received labeled with the patient?s name, and designated ?EBUS FNA, aspiration #4, right hilar mass.? The specimen consists of two smears submitted for immediate cytologic evaluation (wet read). E - Received labeled with the patient?s name, and designated ?EBUS FNA, aspiration #5, right hilar mass.? The specimen consists of two smears submitted for immediate cytologic evaluation (wet read). F - Received labeled with the patient?s name, and designated ?EBUS FNA, aspiration #6, right hilar mass.? The specimen consists of two smears submitted for immediate cytologic evaluation (wet read). G ? Received in RPMI and labeled with the patient?s name, and designated ?TBNA, site 7.? Submitted for cytology preparation including cell block. H - Received in RPMI and labeled with the patient?s name, and designated ?TBNA, hilar mass.? Submitted for cytology preparation including cell block. I - Received is 25 ml of dark red cloudy fluid labeled with the patient's name and and designated per the requisition as RML washing. Submitted for cytology preparation including cell block. / BOB:sonali 01/17/18 TC:0 CPT: 37592 x3, 28144 x2, 15892 x4, 56617 x3
--- NOTE | 2018-01-17 12:50 | LUNG_PTH ---
PATIENT: ANGEL LUIS MYRICK LOC: EN U#:[id number] AGE/SX: 67/M ROOM: RE01/17/[address]: Dr. Antonio Chin DO : 1950 BED: DIS: 01/17/2018 SPEC #: [id number] RECD: 01/17/18 13:30 STATUS: GIRMA REJazmín #: [id number] JENNY: 01/17/18 12:[address]: Antonio Chin DEPT: SURGICAL PATHOLOGY RECD BY: Brina Ruby ENTERED: 01/20/18 10:56 SP TYPE: LUNG BX OTHR DR: Dr. Semaj Hancock MD Tissues: Lung, NOS Procedures: Surgery Specimen Level IV HEADER OPERATION: EBUS and TBNA, endobronchial biopsy, washing PRE-OP DIAGNOSIS: Right hilar mass TISSUE SUBMITTED: Endobronchial biopsy RML MICROSCOPIC DIAGNOSIS RML, endobronchial biopsy: Non-small cell carcinoma, favor squamous cell carcinoma. See comment. SJ:sonali 01/21/18 COMMENT Please make reference to corresponding cytology specimen ([id number]) right hilar mass, TBNA with diagnosis of malignant cells present derived from non-small cell carcinoma, favor squamous cell carcinoma. MICROSCOPIC DESCRIPTION Slides are reviewed. GROSS DESCRIPTION Received in fixative is one container labeled with the patient's name and designated endobronchial biopsy RML. The specimen consists of multiple irregular fragments of light spangler soft tissue that in aggregate measure 1 x 0.2 x 0.1 cm. The specimen is totally submitted in one cassette. / BOB:sonali 01/20/18 TC:0 CPT: 91291
[2018-01-17] MEDS: Ipratropium/Albuterol Sulfate 3 ML AMPUL.NEB INHALATION (13:48)
--- NOTE | 2018-01-17 13:50 | CPS ---
Wheezes auscultated over throat pre-tx, none after tx.
--- NOTE | 2018-01-17 13:53 | HP.PCM_ITS ---
History of Present Illness Date of Admission: 01/17/18 Chief Complaint: Lung mass The patient is a 67-year-old male was initially admitted to the hospital in November 2017 with complaints of shortness of breath, cough and hemoptysis. The patient has a smoking history that includes 2-1/2 packs per day ?20 years, having quit completely in 2009. He has never undergone formal pulmonary function testing previously. 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 During the patient's hospitalization, a CT chest with contrast was obtained which revealed an obstructing mass encompassing the right middle lobe bronchus and measuring 3.5 x 3 cm in size. The patient was evaluated by pulmonary medicine, given concerns for potential malignancy. Options for moving forward for diagnostic purposes was discussed with the patient. Following a discussion with Dr. Richey, the patient agreed to proceed with airway evaluation by EBUS. Past Medical History Medical History: Medical History (Last Updated 12/12/17 @ 03:25 by Alexandr Olmstead DO) Hyperlipidemia E78.5 Hypertension I10 Allergies No Known Allergies Allergy (Verified 01/17/18 11:44) Home Medications: Ambulatory Orders Medication Instructions Recorded Hydrochlorothiazide [Hctz] 25 mg PO DAILY 06/16/17 Metoprolol Tartrate [Lopressor 50 mg PO BID 06/16/17 (beta shorty)] Simvastatin [Zocor] 40 mg PO QHS 06/16/17 [place]-3 Fatty Acids/Fish Oil [Fish 1 each PO DAILY 12/11/17 Oil 1,000 mg Capsule] Albuterol IH (ProAir) [Proair Hfa] 1 puff INHALATION Q4H PRN PRN #1 12/12/17 inhaler Guaifenesin [Mucinex] 1,200 mg PO BID 01/14/18 Surgical History: - - hernia repair as infant, otherwise no surgical hx Psychiatric History: No pertinent psych hx Smoking Status: Former smoker - *Family History Maternal History Items: - - no malignancy. from [place] in her 80's Paternal History Items: Heart Disease, - - from [place] in his 70's, no malignancies Review of Systems Constitutional: Denies: Chills, Fever, Weight Change HEENT: Denies: Head Aches, Sinus Congestion, Sinus Drainage Cardiovascular: Denies: Chest Pain, Palpitations Respiratory: Reports: Cough, Shortness of Breath, Sputum production Gastrointestinal: Denies: Abdominal Pain, Nausea, Vomiting Genitourinary: Denies: Dysuria Musculoskeletal: Denies: Joint Pain, Joint Tenderness Skin: Denies: Rash, Wounds Neurological: Denies: Numbness, Tingling, Focal weakness Psychiatric: Denies: Anxiety, Depression, Homicidal Ideations, Suicidal Ideations Hematologic/ Lymphatic: Denies: Easy Bruising, Easy Bleeding VTE Information - Inpt Only VTE Present on Admission: No VTE Mechan Device Prophylaxis: None VTE Pharm Prophylaxis ordered?: No Reason prophylaxis not ordered:: Treatment Not Indicated - Physical Exam General: Alert, Cooperative, No apparent distress HEENT: Atraumatic, PERRLA, Normocephalic Oral: No Gingival or Mucosal Lesions/ Ulcerations Neck: Supple, No Nodes, Trachea Midline Lungs: No rhonchi, No rales, Diminished, Wheezes Cardiovascular: Regular rate, Regular Rhythm, Normal S1, Normal S2, No murmurs Abdomen: Bowel Sounds Present, Soft, Non Tender, Non-Distended Extremities: No clubbing, No cyanosis, No edema Skin: No breakdown Musculoskeletal: No Muscle Wasting Lymphatic: No Cervical, Supraclavicular, or Inguinal Adenopathy Neurological: Neuro grossly intact Psych/Mental Status: Normal Affect, Appropriate Vital Signs Temp Pulse Resp BP Pulse Ox 98.3 F 71 22 H 99/46 L 97 01/17/18 13:35 01/17/18 13:35 01/17/18 13:35 01/17/18 13:35 01/17/18 13:35 Oxygen Flow Rate (L/min) 6 Oxygen Delivery Method Nasal Cannula Weight: 213 lb 6.519 oz Body Mass Index (BMI) 31.5 Assessment/Plan All Active Problems (Last Updated 12/12/17 @ 03:25 by Alexandr Olmstead DO) Hemoptysis (Acute) Lung mass (Acute) Pneumonia (Acute) IMPRESSIONS/PLAN: 1. Right hilar lung mass concerning for underlying malignancy, given the patient's smoking history. We will plan to proceed with airway evaluation and diagnostic lymph node/mass sampling by EBUS. The procedure was again explained to the patient at length. Questions were answered accordingly. Risks and benefits were reviewed. The patient was in agreement to proceed accordingly.
--- NOTE | 2018-01-17 13:53 | PCM.OP.BLANK ---
Operative Report Date of Procedure: 01/17/18 BRONCHOSCOPY (EBUS) PROCEDURE REPORT DATE OF SERVICE: January 17, 2018 BRIEF HISTORY: The patient is a 67-year-old male was initially admitted to the hospital in November 2017 with complaints of shortness of breath, cough and hemoptysis. The patient has a smoking history that includes 2-1/2 packs per day ?20 years, having quit completely in 2009. He has never undergone formal pulmonary function testing previously. 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 During the patient's hospitalization, a CT chest with contrast was obtained which revealed an obstructing mass encompassing the right middle lobe bronchus and measuring 3.5 x 3 cm in size. The patient was evaluated by pulmonary medicine, given concerns for potential malignancy. Options for moving forward for diagnostic purposes was discussed with the patient. Following a discussion with Dr. Richey, the patient agreed to proceed with airway evaluation by EBUS. PROCEDURE: Bronchoscopy with endoscopic endobronchial ultrasound (EBUS), transbronchial needle aspiration, endobronchial biopsies and bronchial washing INDICATION: Lung mass PHYSICIAN: Antonio Chin DO ANESTHETIC: This procedure was completed under the supervision of anesthesia. Please refer to their documentation accordingly. COMPLICATIONS: No immediate complications noted. DESCRIPTION OF PROCEDURE: A history and physical has been performed. Please see outpatient pulmonary clinic note. The patient's medications and allergies have been reviewed. The risks and benefits of the procedure and sedation options and risks were discussed with the patient at length. All questions were answered and informed consent was obtained. The patient's identification and proposed procedure were verified prior to the procedure by the physician. ASA GRADE ASSESSMENT: II After obtaining informed consent, the bronchoscope was introduced through the mouth, via laryngeal mask airway and advanced to the tracheal bronchial tree bilaterally. The procedure was accomplished without difficulty. The patient tolerated the procedure well. FINDINGS: The visualized oropharynx appears normal. The vocal cords appeared normal and moved normally with breathing. The subglottic space is normal. The trachea was of normal caliber. The courtney is sharp. The tracheal bronchial trees of the left and right lungs were examined to at least the first subsegmental level. There was scant mucoid secretions noted in the left lower lobe. Within the right tracheal bronchial tree, there was a fungating obstructing mass occupying the orifice of the right middle lobe and right lower lobe. Only a slitlike portion of the right lower lobe orifice could be visualized. The lesion could not be traversed with the bronchoscope. Once the airway inspection was completed, the standard bronchoscope was withdrawn and a convex probe endobronchial ultrasound (EBUS) bronchoscope was inserted through the same route. The endobronchial ultrasound endoscope was then utilized to systematically examine the superior/inferior mediastinal and hilar lymph nodes to assist with fine-needle aspiration. No significant left-sided hilar lymphadenopathy was identified. 2 small lymph nodes were identified at lymph node station #7 (subcarina) and subsequently biopsied In total, 6 transbronchial needle aspirations were completed at 2 different lymph node stations. Transbronchial needle aspiration was performed at lymph node station #7(subcarina) using an Olympus EBUS-TBNA 19-gauge needle and sent for routine cytology. The procedure was guided by ultrasound. 3 samples were obtained. Transbronchial needle aspiration was then performed of the right-sided hilar lesion which encompassed the right middle lobe and right lower lobe takeoff, using an Olympus EBUS-TBNA 19-gauge needle and sent for routine cytology. The procedure was guided by ultrasound. 3 samples were obtained. Rapid on-site evaluation (ELYSIA): Preliminary cytology was suggestive of non-small cell carcinoma. Final pathology results are pending. Following this, the EBUS endoscope was subsequently withdrawn from the patient's airway through the LMA. A conventional bronchoscope was then reinserted into the patient's airway, at which time, endobronchial biopsies were obtained from the right middle lobe orifice, where the fungating mass was most pronounced. A total of 3 endobronchial forceps biopsies were completed. Bronchial washing was completed in the bronchus intermedius. Ice cold saline was infused into the region to facilitate achieving hemostasis. All retained secretions and/or blood was cleared from the patient's airway. The bronchoscope was then withdrawn without complication. The patient was then transferred to the PACU, where they recovered in the usual fashion. IMPRESSION: 1. Large right-sided obstructing lung mass. The fungating endobronchial portions of this lesion obstructed the orifice of the right middle and right lower lobes. The lesion was not able to be traversed by the bronchoscope. 2. Subcarinal lymphadenopathy status post transbronchial needle aspiration 3. Mucoid secretions within the left lower lobe. 4. No significant left-sided hilar adenopathy was identified. RECOMMENDATIONS: 1. Await final pathology results. 2. Follow-up in the pulmonary medicine clinic next week for a review of the pathology results. 3. The patient was advised that if he coughs up copious amounts of blood to present immediately to the emergency department. Code Visit 9xxxx: Other Procedure See Report - [id number]
--- NOTE | 2018-01-17 14:03 | OP.PCM_ITS ---
Operative Report Date of Procedure: 01/17/18 BRONCHOSCOPY (EBUS) PROCEDURE REPORT DATE OF SERVICE: January 17, 2018 BRIEF HISTORY: The patient is a 67-year-old male was initially admitted to the hospital in November 2017 with complaints of shortness of breath, cough and hemoptysis. The patient has a smoking history that includes 2-1/2 packs per day ?20 years, having quit completely in 2009. He has never undergone formal pulmonary function testing previously. 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 During the patient's hospitalization, a CT chest with contrast was obtained which revealed an obstructing mass encompassing the right middle lobe bronchus and measuring 3.5 x 3 cm in size. The patient was evaluated by pulmonary medicine, given concerns for potential malignancy. Options for moving forward for diagnostic purposes was discussed with the patient. Following a discussion with Dr. Richey, the patient agreed to proceed with airway evaluation by EBUS. PROCEDURE: Bronchoscopy with endoscopic endobronchial ultrasound (EBUS), transbronchial needle aspiration, endobronchial biopsies and bronchial washing INDICATION: Lung mass PHYSICIAN: Antonio Chin DO ANESTHETIC: This procedure was completed under the supervision of anesthesia. Please refer to their documentation accordingly. COMPLICATIONS: No immediate complications noted. DESCRIPTION OF PROCEDURE: A history and physical has been performed. Please see outpatient pulmonary clinic note. The patient's medications and allergies have been reviewed. The risks and benefits of the procedure and sedation options and risks were discussed with the patient at length. All questions were answered and informed consent was obtained. The patient's identification and proposed procedure were verified prior to the procedure by the physician. ASA GRADE ASSESSMENT: II After obtaining informed consent, the bronchoscope was introduced through the mouth, via laryngeal mask airway and advanced to the tracheal bronchial tree bilaterally. The procedure was accomplished without difficulty. The patient tolerated the procedure well. FINDINGS: The visualized oropharynx appears normal. The vocal cords appeared normal and moved normally with breathing. The subglottic space is normal. The trachea was of normal caliber. The courtney is sharp. The tracheal bronchial trees of the left and right lungs were examined to at least the first subsegmental level. There was scant mucoid secretions noted in the left lower lobe. Within the right tracheal bronchial tree, there was a fungating obstructing mass occupying the orifice of the right middle lobe and right lower lobe. Only a slitlike portion of the right lower lobe orifice could be visualized. The lesion could not be traversed with the bronchoscope. Once the airway inspection was completed, the standard bronchoscope was withdrawn and a convex probe endobronchial ultrasound (EBUS) bronchoscope was inserted through the same route. The endobronchial ultrasound endoscope was then utilized to systematically examine the superior/inferior mediastinal and hilar lymph nodes to assist with fine-needle aspiration. No significant left- sided hilar lymphadenopathy was identified. 2 small lymph nodes were identified at lymph node station #7 (subcarina) and subsequently biopsied In total, 6 transbronchial needle aspirations were completed at 2 different lymph node stations. Transbronchial needle aspiration was performed at lymph node station #7(subcarina) using an Olympus EBUS-TBNA 19-gauge needle and sent for routine cytology. The procedure was guided by ultrasound. 3 samples were obtained. Transbronchial needle aspiration was then performed of the right-sided hilar lesion which encompassed the right middle lobe and right lower lobe takeoff, using an Olympus EBUS-TBNA 19-gauge needle and sent for routine cytology. The procedure was guided by ultrasound. 3 samples were obtained. 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 Final pathology results are pending. Following this, the EBUS endoscope was subsequently withdrawn from the patient' s airway through the LMA. A conventional bronchoscope was then reinserted into the patient's airway, at which time, endobronchial biopsies were obtained from the right middle lobe orifice, where the fungating mass was most pronounced. A total of 3 endobronchial forceps biopsies were completed. Bronchial washing was completed in the bronchus intermedius. Ice cold saline was infused into the region to facilitate achieving hemostasis. All retained secretions and/or blood was cleared from the patient's airway. The bronchoscope was then withdrawn without complication. The patient was then transferred to the PACU, where they recovered in the usual fashion. IMPRESSION: 1. Large right-sided obstructing lung mass. The fungating endobronchial portions of this lesion obstructed the orifice of the right middle and right lower lobes. The lesion was not able to be traversed by the bronchoscope. 2. Subcarinal lymphadenopathy status post transbronchial needle aspiration 3. Mucoid secretions within the left lower lobe. 4. No significant left-sided hilar adenopathy was identified. RECOMMENDATIONS: 1. Await final pathology results. 2. Follow-up in the pulmonary medicine clinic next week for a review of the pathology results. 3. The patient was advised that if he coughs up copious amounts of blood to present immediately to the emergency department. Code Visit [id number]: Other Procedure See Report - [id number]
[2018-01-17 14:18] LABS: Cytology, Washings SEE PATHOLOGY REPORT
[2018-01-17 14:31] LABS: Appearance/Body Fluid CLOUDY; Color/Body Fluid RED; Source- Body Fluid BRONCHIAL LAVAGE
[2018-01-17 14:33] LABS: White Blood Count/Body Fluid 45 /mm3
[2018-01-17 14:37] LABS: Red Cell Count/Body Fluid 36800 /mm3
[2018-01-17 14:53] LABS: Lymphocytes 20 %; Neutrophil (Segs) 80 %
[2018-01-21 16:25] LABS: Pathologist Comment/Body Fluid Reviewed
== END 2018-01-17 15:18 | disposition home or self-care (01) ==
LOC: EN 11:18 → AC 11:19
PROVIDERS: Family Provider Family Medicine; PCP Family Medicine; Visit Provider Internal Medicine Critical Care Medicine
PROC: BB4BZZZ Ultrasonography of Pleura (ICD-10-PCS; principal; 2018-01-17 12:00)
DX: C34.2 Malignant neoplasm of middle lobe, bronchus or lung (principal); R04.2 Hemoptysis; J18.9 Pneumonia, unspecified organism; I10 Essential (primary) hypertension; E78.00 Pure hypercholesterolemia, unspecified; G25.81 Restless legs syndrome; K21.9 Gastro-esophageal reflux disease without esophagitis; Z79.899 Other long term (current) drug therapy
CPT/HCPCS: 31629; 31633; 31652; 88161; 88305; 88313; 88341; 88342; 89050; 94640; J7120; A4216

== ENCOUNTER → 2018-01-31 06:58 | Outpatient (CLI) | payer MEDICARE, SELFPAY ==
[2018-01-31 07:30] LABS: CREATININE FINGERSTICK 0.7 mg/dL (0.70-1.30); EGFR FINGERSTICK > 60.0000 mL/min (>60)
--- NOTE | 2018-01-31 07:45 | MRI_ITS ---
STUDY: MRI BRAIN WITH AND WITHOUT CONTRAST REASON FOR EXAM: Male, 67 years old. Staging newly diagnosed primary genic carcinoma. TECHNIQUE: Standardized multiplanar fat and water weighted pulse sequences were obtained. 10 ml of Gadavist contrast material was administered intravenously for the contrast portion of the examination. COMPARISON: None. FINDINGS: There is mild cerebral atrophy with widening of the extra-axial spaces and ventricular dilatation. There are a limited number of small white matter hyperintensities, distributed throughout the deep white matter tracts of the cerebral hemispheres, consistent with mild chronic white matter ischemic changes. Normal bilateral basal ganglia. Normal thalami. There is no extra-axial fluid accumulation. Normal flow voids within the major intracranial circulation suggesting patency by spin echo criteria. Normal venous enhancement. There is no enhancing intra-axial or extra-axial abnormality. Normal sella turcica, pituitary gland, infundibular stalk, optic chiasm and hypothalamus. Normal tectal plate and pineal gland. Normal midbrain, day and medulla. Normal cerebellum. Normal basal cisterns. Normal bilateral temporal bones. Normal bilateral internal auditory canals. No demonstrated orbital abnormality, within the constraints of a routine brain study. There is mucoperiosteal inflammatory disease of the paranasal sinuses consistent with mild chronic sinusitis. There is a small right maxillary mucous retention cyst. There is mild deviation of the nasal septum towards the right. Normal calvarium and skull base. Normal visualized soft tissue structures. Normal visualized upper cervical spine. MRI/Brain W/WO Contrast IMPRESSION: 1. Involutional changes of the brain, as described above. 2. No MR evidence for acute infarct or metastasis. Electronically Signed: Colleen Dasilva MD at 11:31 EDT , Service support ,
== END ==
PROVIDERS: Family Provider Family Medicine; PCP Family Medicine; Visit Provider Internal Medicine Hematology & Oncology
DX: C34.2 Malignant neoplasm of middle lobe, bronchus or lung (principal)
CPT/HCPCS: 70553; A9585

== ENCOUNTER → 2018-02-11 08:46 | Outpatient (CLI) | payer MEDICARE, SELFPAY ==
--- NOTE | 2018-02-11 10:49 | PFT ---
INTRODUCTION: The patient is a 67-year-old male that presents for pulmonary function testing secondary to a diagnosis of tobacco abuse. Respiratory therapy reports good patient effort. Bronchodilators were used during testing. INTERPRETATION: Forced expiration spirometry demonstrates the presence of a very severe large airways obstructive ventilatory defect. There was a significant response to aerosolized bronchodilators. Spirograms are of good quality and do not plateau indicating slow emptying of the lungs. Body plethysmography was performed and reveals an elevated RV to 232% of predicted, indicative of underlying air trapping. Diffusing capacity by single breath CO severely reduced at 38% of predicted. IMPRESSION: These pulmonary function studies demonstrate the presence of a partially reversible very severe large airways obstructive ventilatory defect with associated air trapping and symmetric reduction in diffusing capacity.
== END ==
PROVIDERS: Family Provider Family Medicine; PCP Family Medicine; Visit Provider Internal Medicine Critical Care Medicine
DX: C34.90 Malignant neoplasm of unspecified part of unspecified bronchus or lung (principal); F17.201 Nicotine dependence, unspecified, in remission
CPT/HCPCS: 94060; 94726; 94729

== ENCOUNTER → 2018-02-12 08:49 | Outpatient (CLI) | payer MEDICARE, SELFPAY ==
[2018-02-12 09:41] VITALS: PULSE 56; PULSE 59; PULSE 67; PULSE 68; PULSE 69; O2SAT 90; O2SAT 91; O2SAT 92; O2SAT 93; O2SAT 94
--- NOTE | 2018-02-12 11:39 | PCM.PSN.6M ---
PSN 6 Minute Walk Test - 6 Minute Walk Test 6 Minute Walk Test: 6 Minute Walk Test PSN:6-Minute Walk Test Start: 02/12/18 09:41 Freq: Status: Active Protocol: RESP.6MINW Document 02/12/18 09:41 VLADIMIR (Rec: 02/12/18 09:45 VLADIMIR [id number]) 6 Minute Walk Test Date Performed 02/12/18 Time Performed 09:00 Height 5 ft 9 in Weight: 210 lb Weight in Pounds 210.[address]: Antonio Chin Assistive device used: None Pre-test Oxygen Delivery Method Room Air Pulse Ox (%) 93 Pulse Rate (60-100 beats/min) 56 L Dyspnea Darlyn Scale (0-10) 0 Exertion Darlyn Scale (6-20) 6 1st minute Oxygen Delivery Method Room Air Pulse Ox (%) 94 Pulse Rate (60-100 beats/min) 67 2nd minute Oxygen Delivery Method Room Air Pulse Ox (%) 92 Pulse Rate (60-100 beats/min) 67 3rd minute Oxygen Delivery Method Room Air Pulse Ox (%) 93 Pulse Rate (60-100 beats/min) 69 4th minute Oxygen Delivery Method Room Air Pulse Ox (%) 90 Pulse Rate (60-100 beats/min) 69 5th minute Oxygen Delivery Method Room Air Pulse Ox (%) 91 Pulse Rate (60-100 beats/min) 68 6th minute Oxygen Delivery Method Room Air Pulse Ox (%) 93 Pulse Rate (60-100 beats/min) 67 Dyspnea Darlyn Scale (0-10) 1 Exertion Darlyn Scale (6-20) 11 Post-test Oxygen Delivery Method Room Air Pulse Ox (%) 94 Pulse Rate (60-100 beats/min) 59 L Full Laps Walked 16 Partial Lap, Number of Tiles Walked 46 Total Distance Walked (ft) 990 - Interpretation Interpretation: The patient ambulated 990 feet over the course of 6 minutes beginning on room air without assistive devices or breaks. Pretesting oxygen saturation was noted to be 93% on room air. With ambulation, the susan oxygen saturation was 90%. There was no significant exertional oxygen desaturation. - Recommendations Recommendations: There is no indication for the use of supplemental oxygen at this time.
== END ==
PROVIDERS: Family Provider Family Medicine; PCP Family Medicine; Visit Provider Internal Medicine Critical Care Medicine
DX: C34.90 Malignant neoplasm of unspecified part of unspecified bronchus or lung (principal); F17.201 Nicotine dependence, unspecified, in remission
CPT/HCPCS: 94618

== ENCOUNTER 2018-03-18 09:17 | Day surgery (SDC) | payer MEDICARE, SELFPAY ==
[2018-03-10 11:02] VITALS: BMI 29.9
[2018-03-18 09:35] VITALS: BP 127/69; PULSE 65; RESP 16; TEMP 36.9; O2SAT 97
[2018-03-18] MEDS: Cefazolin 2 GM in 0.9% Normal Saline 100 ML IV (10:58)
[2018-03-18] MEDS: Bupivacaine Mpf 0.5% 30 ML VIAL (11:28)
--- NOTE | 2018-03-18 11:34 | PCM.OPRPT ---
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 C 34.2 primary cancer of the right middle lobe of lung Post-Operative Diagnosis: Same Surgery/Procedure Performed:: Placement of a right IJ PowerPort Type of Anesthesia:: MAC Anesthesiologist: Alexandr Otero Description of Procedure: Patient was brought into the surgical suite. Placed in the supine position. Head was placed down and rotated to the left. I ultrasound the right neck identified the internal jugular vein marked the neck appropriately the neck and chest were then sterilely prepped and draped in the usual fashion. Local was injected into the neck. Seldinger's technique was used to gain access to the internal jugular vein. Guidewire was placed over the needle. Fluoroscopy was used to confirm placement of wire. The needle was removed. I injected local onto the chest. Incision was made. Electrocautery was used to create a pocket for the port. A skin gonzales was made in the neck. Dilator and sheath were placed over the guidewire. The dilator and guidewire were removed. Single lumen catheter was placed in the sheath and the sheath was removed. Fluoroscopy was used again to confirm proper length. I tunneled from the pocket created over the collarbone into the neck and brought the catheter down. I cut it to length. I placed locking amount of the catheter. The port onto the catheter. And secured the 2 with a locking hub. It flushed and irrigated well I sutured it into the pocket created with 2 sutures of 0 Prolene. Skin incisions were closed with deep dermal stitches of 3-0 Vicryl. Dermabond was applied. The catheter was accessed it flushed and irrigated well and was flushed with 5 cc of hep flush. Sterile dressings were applied. The patient tolerated the procedure well. - Admit VTE Documentation VTE Present on Admission: No VTE Mechan Device Prophylaxis: SCD's VTE Pharm Prophylaxis ordered?: No Reason prophylaxis not ordered:: Treatment Not Indicated
--- NOTE | 2018-03-18 11:38 | RAD_ITS ---
STUDY: X-RAY CHEST REASON FOR EXAM: Male, 67 years old. Post port placement TECHNIQUE: Single AP portable view of the chest. COMPARISON: 12/11/2017 FINDINGS: Right chest wall Mediport has been placed without pneumothorax. Right lower lobe consolidation and effusion, moderate. Left lung is clear. Normal size heart. Normal mediastinum and mercedes. Normal visualized pulmonary arteries. Normal visualized aortic arch and descending thoracic aorta. Normal visualized thoracic spine. Normal visualized ribs, clavicles, and shoulders. There is no demonstrated abnormality of the visualized soft tissue structures of the upper abdomen. RAD/Chest 1 View (Portable) IMPRESSION: Right chest wall Mediport placement without pneumothorax. Right lower lobe airspace disease and effusion Electronically Signed: David Amos DO at 12:28 EDT Tel , Service support ,
--- NOTE | 2018-03-18 11:38 | PCM.DC.POR ---
Discharge Diet: No Restrictions - Pain medication may cause nausea. You should typically eat light foods as you take your pain medication. Discharge Activity: May Shower - with the bandage in place 1-2 days after surgery. DO NOT SHOWER WHEN YOUR PORT IS ACCESSED. Additional Activity Instructions:: May not drive, work with heavy equipment, or sign legal documents for [address] if you are no longer taking narcotic pain medications. You may drive when you are no longer taking pain medications. Additional Dressing/Incision Instructions:: Leave the bandage on for 2-3 days. When you remove the bandage, leave the steri-strips intact until they fall off. Allergies/Adverse Reactions: Allergies No Known Allergies Allergy (Verified 03/12/18 09:14) Medications to take at Discharge Hydrochlorothiazide [Hctz] 25 mg PO DAILY 06/16/17 Metoprolol Tartrate [Lopressor (beta shorty)] 50 mg PO BID 06/16/17 Simvastatin [Zocor] 40 mg PO QHS 06/16/17 [place]-3 Fatty Acids/Fish Oil [Fish Oil 1,000 mg Capsule] 1 ea PO DAILY 12/11/17 Albuterol IH (ProAir) [Proair Hfa] 1 puff INHALATION Q4H PRN PRN #1 inhaler 12/12/17 Guaifenesin [Mucinex] 1,200 mg PO BID 01/14/18 tiotropium 2.5 mcg-olodaterol 2.5 mcg/actuation mist for inhalation 2 puff INHALATION Q24H #4 g 03/04/18 Guaifenesin/Codeine Phosphate [Virtussin AC Liquid] 10 ml PO PRN PRN 03/06/18 Lidocaine/Prilocaine [Lidocaine-Prilocaine Cream] 30 gm TP DAILY PRN PRN #1 cream..g. 03/10/18 Ondansetron [Zofran Odt] 4 mg PO Q8H PRN PRN 10 Days #30 tab.rapdis 03/10/18 Primary Care Physician: eSmaj Hancock MD [Primary Care Provider] - Test Results: Test results from this visit will be discussed in further detail at your follow-up appointment, if applicable. Please Follow Up With: Nik Miles MD - [phone] When: Please plan to follow up in 7 days in the office.
[2018-03-18 11:45] VITALS: BP 124/73; BP 127/69; PULSE 65; RESP 18; TEMP 37.2; O2SAT 100
[2018-03-18 11:50] VITALS: BP 120/73; BP 127/69; PULSE 65; RESP 18; O2SAT 96
[2018-03-18 11:55] VITALS: BP 124/69; BP 127/69; PULSE 65; RESP 18; O2SAT 100
[2018-03-18 12:00] VITALS: BP 111/78; BP 127/69; PULSE 82; RESP 16; TEMP 37.4; O2SAT 100
[2018-03-18 12:41] VITALS: BP 127/69
== END 2018-03-18 12:50 | disposition home or self-care (01) ==
LOC: SDC 09:18 → AC 09:19
PROVIDERS: Family Provider Family Medicine; PCP Family Medicine; Visit Provider Surgery
PROC: (CPT 36561; principal; 2018-03-18 11:15)
DX: Z45.2 Encounter for adjustment and management of vascular access device (principal); C34.2 Malignant neoplasm of middle lobe, bronchus or lung; J44.9 Chronic obstructive pulmonary disease, unspecified; I10 Essential (primary) hypertension; E78.5 Hyperlipidemia, unspecified; M10.9 Gout, unspecified; Z79.899 Other long term (current) drug therapy; Z87.891 Personal history of nicotine dependence
CPT/HCPCS: 00532; 36561; 71045; 77001; J7120; C1788

== ENCOUNTER → 2018-03-25 13:02 | Outpatient (CLI) | payer MEDICARE, SELFPAY ==
[2018-03-10 11:02] VITALS: BMI 29.9
--- NOTE | 2018-03-25 | FLU_PTH ---
PATIENT: ANGEL LUIS MYRICK LOC: U#:[id number] AGE/SX: 74/M ROOM: RE03/25/[address]: Dr. Chaitanya Luther DO : 1950 BED: DIS: SPEC #: [id number] RECD: 03/25/18 14:11 STATUS: GIRMA NELSON #: [id number] JENNY: 03/25/18 00:[address]: Chaitanya Luther DEPT: CYTOLOGY RECD BY: Brina Ruby ENTERED: 03/26/18 09:01 SP TYPE: Fluid OTHR DR: Dr. Semaj Hancock MD Tissues: THORACIC FLUID Procedures: Pap Stain (control) Special Stain Group II Surgery Specimen Level IV Cell Block Cytospin Fluid HEADER OPERATION: Ultrasound guided thoracentesis, right PRE-OP DIAGNOSIS: Pleural effusion TISSUE SUBMITTED: Right ultrasound guided thoracentesis DIAGNOSIS CYTOLOGY Thoracentesis fluid for cytology (cytospin and cell block): Negative for malignant cells. AM:sonali 03/27/18 COMMENT The specimen contains reactive mesothelial cells and acute and chronic inflammatory cells. Immunohistochemistry ([id number]) supports the above diagnosis. Reference is made to the patient's hilar mass, fine needle aspiration (EBUS) in which malignant cells derived from non-small cell carcinoma were identified. Case has been reviewed in consultation with Dr. Guerrero who concurs with the above diagnosis. IDC:SJ CYTOLOGY STUDY Slides are reviewed. CYTOLOGY GROSS Received is 110 ml of cloudy yellow fluid labeled with the patient's name and and designated per the requisition as right thoracic fluid. Submitted for cytology preparation including cell block. / CC:cc 03/26/18 TC:5 CPT: 38094, 86965
--- NOTE | 2018-03-25 | IMM_PTH ---
PATIENT: ANGEL LUIS MYRICK LOC: U#:[id number] AGE/SX: 74/M ROOM: RE03/25/[address]: Dr. Chaitanya Luther DO : 1950 BED: DIS: SPEC #: [id number] RECD: 03/27/18 14:10 STATUS: GIRMA NELSON #: [id number] JENNY: 03/25/18 00:[address]: Chaitanya Luther DEPT: IMMUNOHISTOCHEMISTRY RECD BY: Leola Ji ENTERED: 03/27/18 14:37 SP TYPE: IMMUNO OTHR DR: Dr. Semaj Hancock MD Tissues: THORACIC FLUID Procedures: NAPSIN A (add) CEA (add) CK20 (add) CK5-6 (add) KI-67 (add) MACRO (add) TTF1 (add) Vimentin (add) Pankeratin (initial) PHYSICIAN & INSTITUTION [place] [id number] SPECIMEN INFORMATION: Tissue Source: Thoracentesis fluid Clinical Info: Pleural effusion Specimen Number: [id number] CPT code: 59437, 57588 x9 METHODOLOGY: Deparaffinized sections of prefer/formalin-fixed tissue or PAP/DQ stained slides are incubated with monoclonal/polyclonal antibodies/oligonucleotide probes. Localization is made via biotin free immunoperoxidase method. Appropriate controls are performed and reacted as expected. Results on target cell population are indicated in the following table: RESULTS: ANTIBODY / CLONE RESULT AE1-3 (AE1/AE3/PCK26) positive CK7 (OV-TL12/30) positive CK20 (KS20.8) negative Vimentin (V9) positive TTF-1 (8G7G3/1) negative Napsin A (Rabbit Polyclonal) negative Macro (HAM-56) positive CK5-6 (D5 & 1684) positive Ki-67 (30-9) positive, rare cells CEA (11-7/TF-3HB-1) positive These tests were developed and their performance characteristics determined by [facility]. They may not have been cleared or approved by the U.S. Food and Drug Administration. The FDA has determined that such clearance or approval is not necessary. INTERPRETATION: Thoracentesis fluid: Negative for malignant cells. AM:sonali 03/27/18
--- NOTE | 2018-03-25 13:25 | US_ITS ---
PROCEDURE: ULTRASOUND GUIDED THORACENTESIS. DATE: March 25, 2018.. INDICATION: Male, 67 years old. Right pleural effusion. PHYSICIAN: Fish Mac M.D. PROCEDURE: The risks, benefits, and alternatives to the procedure were explained to the patient. The specific risks of bleeding, infection, and pneumothorax requiring chest tube insertion were discussed and accepted. Written informed consent was obtained. Ultrasonographic evaluation of the right lower pleural space was carried out. An adequate pocket was identified. The patient was placed in the sitting, upright position. The overlying skin was prepped and draped in sterile fashion. 1% lidocaine was administered subcutaneously for local anesthesia. Under ultrasound guidance, a 5 [place]ian thoracentesis needle/catheter system was advanced into the right posterior lower pleural fluid collection. Approximately 520 mL of carolin-colored fluid was drained. The catheter was removed, and a sterile dressing was applied. A specimen was collected and sent to the laboratory for analysis, as requested by the referring clinician. The patient tolerated the procedure well. A chest x-ray was ordered. US/Thoracentesis W US IMPRESSION: Ultrasound-guided right thoracentesis. Electronically Signed: Fish Mac MD at 14:49 EDT Tel [phone], Service support ,
[2018-03-25 13:50] VITALS: BP 134/96; PULSE 99; RESP 18; O2SAT 95
[2018-03-25 13:56] VITALS: BP 110/51; PULSE 101; RESP 18; O2SAT 93
[2018-03-25 14:00] VITALS: BP 116/51; PULSE 98; RESP 18; O2SAT 94
--- NOTE | 2018-03-25 14:00 | RAD_ITS ---
STUDY: X-RAY CHEST REASON FOR EXAM: Male, 67 years old. Status post right thoracentesis. TECHNIQUE: Inspiration expiration frontal views. COMPARISON: Comparison is made with prior examination of March 18, 2018. FINDINGS: A right-sided portacatheter is seen with the tip at the junction of superior vena cava and right atrium. Elevation of the right hemidiaphragm. There is no evidence of pneumothorax. The left lung is clear. RAD/Chest Insp/Exp 2 View IMPRESSION: Status post right thoracentesis. There is no evidence of right pneumothorax. Electronically Signed: Fish Mac MD at 14:17 EDT Tel [phone], Service support ,
[2018-03-25 14:15] VITALS: BP 124/64; PULSE 97; RESP 20; O2SAT 97
[2018-03-25 15:08] LABS: Cytology, Body Fluid / CSF SEE PATHOLOGY REPORT
[2018-03-25 16:16] LABS: Glucose, Body Fluid 124 mg/dL (40-70); Protein, Body Fluid 4.3 g/dL (Not Establ.)
[2018-03-25 16:42] LABS: Body Fluid Mononuclear WBC # 1.188 10^3/uL; Body Fluid Polynuclear WBC # 0.933 10^3/uL; Body Fluid Total Cells Counted 2.292 10^3/ul; White Blood Count/Body Fluid 2.121 10^3/uL
[2018-03-25 18:23] LABS: Lymphocytes 57 %; Mesothelial Cells 11 %; Monocytes 1 %; Neutrophil (Segs) 31 %
[2018-03-25 18:25] LABS: Appearance/Body Fluid SL CLDY; Auto B Fluid Analyzer BKGD Ct COUNTS W/IN LIMITS (W/IN LIMITS); Color/Body Fluid YELLOW; Source- Body Fluid THORACENTESIS
[2018-03-25 18:26] LABS: Body Fluid QC Type(s) BF3Q
[2018-03-26 14:56] LABS: Pathologist Comment/Body Fluid Reviewed
== END ==
PROVIDERS: Family Provider Family Medicine; PCP Family Medicine; Referring Provider Student in an Organized Health Care Education/Training Program; Visit Provider Student in an Organized Health Care Education/Training Program
DX: J90 Pleural effusion, not elsewhere classified (principal)
CPT/HCPCS: 32555; 71046; 82945; 84157; 87070; 87075; 87205; 88108; 88305; 88313; 88341; 88342; 89050; A4216

== ENCOUNTER → 2018-06-04 13:58 | Outpatient (CLI) | payer MEDICARE, SELFPAY ==
[2018-03-10 11:02] VITALS: BMI 29.9
[2018-06-04 13:01] VITALS: BMI 28.9
--- NOTE | 2018-06-04 14:01 | RAD_ITS ---
STUDY: X-RAY CHEST REASON FOR EXAM: Male, 67 years old. One-week history of cough and sore throat. The patient has a history of right lung cancer with chemotherapy and radiation therapy. TECHNIQUE: PA and lateral views of the chest. COMPARISON: Comparison is made with prior study dated March 25, 2018. FINDINGS: A right-sided steve catheter is in situ with the tip in the proximal portion of the superior vena cava. There is elevation of the right hemidiaphragm. There now is evidence of a infiltration in the right middle lobe as well as in the right upper lobe. This most likely is superimposed on the right infrahilar mass. The left lung is clear. Normal size heart. Normal mediastinum and mercedes. There is prominence of the pulmonary hilar arteries without peripheral pulmonary vascular congestion, suggesting pulmonary hypertension. Normal visualized aortic arch and descending thoracic aorta. There are diffuse degenerative changes of the visualized thoracic spine. Normal visualized ribs, clavicles, and shoulders. There is no demonstrated abnormality of the visualized soft tissue structures of the upper abdomen. RAD/Chest PA and Lateral IMPRESSION: Elevation of the right hemidiaphragm with findings suggestive of infiltration in the right middle lobe and right upper. Electronically Signed: Fish Mac MD at 14:50 EST Tel [phone], Service support ,
== END ==
PROVIDERS: Family Provider Family Medicine; PCP Family Medicine; Referring Provider Nurse Practitioner Family; Visit Provider Nurse Practitioner Family
DX: C34.2 Malignant neoplasm of middle lobe, bronchus or lung (principal); R05 Cough; J90 Pleural effusion, not elsewhere classified
CPT/HCPCS: 71046; 85025; 87880

== ENCOUNTER → 2018-07-18 12:52 | Outpatient (CLI) | payer MEDICARE, SELFPAY ==
[2018-03-10 11:02] VITALS: BMI 29.9
[2018-06-17 10:27] VITALS: BMI 28.5
[2018-07-09 14:05] VITALS: BMI 29.5
--- NOTE | 2018-07-18 12:54 | CT_ITS ---
STUDY: CT ABDOMEN WITH CONTRAST REASON FOR EXAM: Male, 67 years old. History of lung cancer, restaging. RADIATION DOSAGE (If Supplied By Facility): CTDIvol = ( 16.09 ) mGy, DLP = ( 1374.83 ) mGycm TECHNIQUE: Transaxial images were obtained post I.V. administration of 100 ml of Isovue 300 contrast, and without oral contrast. Sagittal and coronal images were reconstructed. Individualized dose optimization techniques were used for this CT. COMPARISON: Prior comparison studies are not available for review at this time. FINDINGS: Visualized portions of lung bases demonstrate small right pleural effusion. There is an infiltrate/atelectasis in the right middle lobe. There is partially visualized opacity/consolidation in the right middle lobe. There are atelectatic changes in the right lower lobe. The heart size is normal. There are coronary calcifications. There is a 5 mm nonspecific low-density lesion in the right lobe of the liver anteriorly difficult to characterize on this exam. No other focal lesions are identified. Normal gallbladder and extrahepatic biliary system. Normal spleen. Normal pancreas. Normal bilateral adrenal glands. There are small cysts in the right kidney. There is a 1.8 cm cyst in the lower pole of the left kidney. Normal visualized stomach. There are nonspecific fluid-filled small bowel loops. There is no evidence of small bowel obstruction. There is fecal retention. The descending colon is not well distended and difficult to evaluate. The appendix is partially visualized and appears unremarkable. There is diffuse atherosclerotic calcification of the abdominal aorta with elongation and tortuosity, but without a demonstrated aneurysm. Normal inferior vena cava. Normal retroperitoneum. There is a right-sided inguinal hernia containing adipose tissue. The osseous structures demonstrate demineralization of the osseous structures. There are multilevel degenerative changes. There is mild anterior wedging of L1 vertebra. There is no demonstrated destructive bony process. CT/Abdomen WITH IV Contrast IMPRESSION: 1. Partially visualized right middle lobe opacity/consolidation. 2. Atelectatic changes in the right lower lobe. 3. Small right pleural effusion. 4. Nonspecific fluid-filled small bowel loops without evidence of bowel obstruction. 5. Small liver lesion which could represent cyst difficult to characterize on this exam. Ultrasound might be of further value. 6. Small bilateral renal cysts. Electronically Signed: Erick Lennon MD at 15:43 EST Tel , Service support ,
--- NOTE | 2018-07-18 12:57 | CT_ITS ---
STUDY: CT CHEST WITH CONTRAST REASON FOR EXAM: Male, 67 years old. Lung cancer restaging following chemotherapy and radiation therapy RADIATION DOSAGE (If Supplied By Facility): CTDIvol = ( 16.09 ) mGy, DLP = ( 1374.83 ) mGycm TECHNIQUE: Transaxial imaging was performed following intravenous administration of 100 ml of Isovue 300 contrast material. Multiplanar coronal and sagittal images were reformatted. Individualized dose optimization techniques were used for this CT. COMPARISON: Radiation planning study of 04/23/2018 FINDINGS: Masslike consolidation involving the inferior right middle lobe has decreased in size when compared to prior radiation planning study. The mass currently measures 4.6 x 4.6 cm (previously measured 7.6 x 6.0 cm). The central cavitation evident on the prior study (image 84 of the prior study ) is no longer identified. Partial reexpansion of the right middle lobe since the prior study. Small volume right pleural effusion remains stable. Mild interstitial thickening involving the right middle lobe and right lower lobe likely sequela of intervening radiation therapy. Elongated subpleural nodular density along the superior portion of the right lower lobe is best seen on sagittal image 169 with axial diameter measuring up to 9 mm, but likely sequela of radiation therapy or inflammation rather than neoplasm given the elongated appearance on sagittal view. There is subtle small areas of rounded density medial right lower lobe measuring up to 5 mm as well as a subpleural right lower lobe posteriorly are also more likely related to atelectasis, post radiation pneumonitis or inflammation. Right jugular chest port is stable. Normal heart and pericardium. Normal mediastinum. Normal hilar regions. Normal enhanced pulmonary arteries. Normal aorta arch and descending thoracic aorta. Degenerative changes of the thoracic spine without lytic or sclerotic bone lesion demonstrated. The adrenal glands are not enlarged. There is a simple cyst of the left kidney. CT/Chest WITH Contrast IMPRESSION: 1. Since 04/23/2018, overall favorable. Decreased size of right middle lobe masslike consolidation presumed to represent patient's known lung neoplasm. 2. Reticulonodular densities in the right lower lobe are new since most recent radiation planning study but favor sequela of radiation pneumonitis or infection/inflammation/atelectasis rather than neoplasm. Electronically Signed: Gee Malagon MD at 14:12 EST , Service support ,
--- OUTSIDE RECORDS SUMMARY | 2018-09-22 02:48 | XMS RPT_ITS ---
:1950 Author Organization [place] Support Name Relationship Address Phone R Unavailable Unavailable Unavailable SHANK, YISSEL Unavailable [address] + [place] [address] SHANK, JED Unavailable [address] + [place] [address] R Unavailable Unavailable Unavailable SHANK, YISSEL Unavailable [address] + [place] [address] SHANK, JED Unavailable [address] + [place] [address] R Unavailable Unavailable Unavailable SHANK, YISSEL Unavailable [address] + [place] [address] SHANK, JED Unavailable [address] + [place] [address] R Unavailable Unavailable Unavailable SHANK, YISSEL Unavailable [address] + [place] [address] SHANK, JED Unavailable [address] + [place] [address] R Unavailable Unavailable Unavailable SHANK, YISSEL Unavailable [address] + [place] [address] SHANK, JED Unavailable Unavailable + R Unavailable Unavailable Unavailable SHANK, YISSEL Unavailable [address] + [place] [address] SHANK, JED Unavailable Unavailable + R Unavailable Unavailable Unavailable SHANK, YISSEL Unavailable [address] + [place] [address] SHANK, JED Unavailable Unavailable + R Unavailable Unavailable Unavailable SHANK, YISSEL Unavailable [address] + [place] [address] SHANK, JED Unavailable Unavailable + R Unavailable Unavailable Unavailable SHANK, YISSEL Unavailable [address] + [place] [address] SHANK, JED Unavailable Unavailable + R Unavailable Unavailable Unavailable SHANK, YISSEL Unavailable [address] + [place] [address] SHANK, JED Unavailable Unavailable + R Unavailable Unavailable Unavailable SHANK, YISSEL Unavailable [address] + [place] [address] SHANK, JED Unavailable Unavailable + R Unavailable Unavailable Unavailable SHANK, YISSEL Unavailable [address] + [place] [address] SHANK, JED Unavailable Unavailable + R Unavailable Unavailable Unavailable SHANK, YISSEL Unavailable [address] + [place] [address] SHANK, JED Unavailable Unavailable + R Unavailable Unavailable Unavailable SHANK, YISSEL Unavailable [address] + [place] [address] SHANK, JED Unavailable Unavailable + R Unavailable Unavailable Unavailable SHANK, YISSEL Unavailable [address] + [place] [address] SHANK, JED Unavailable Unavailable + R Unavailable Unavailable Unavailable SHANK, YISSEL Unavailable [address] + [place] [address] SHANK, JED Unavailable Unavailable + R Unavailable Unavailable Unavailable SHANK, YISSEL Unavailable [address] + [place] [address] SHANK, JED Unavailable Unavailable + R Unavailable Unavailable Unavailable SHANK, YISSEL Unavailable [address] + [place] [address] SHANK, JED Unavailable Unavailable + R Unavailable Unavailable Unavailable SHANK, YISSEL Unavailable [address] + [place] [address] SHANK, JED Unavailable . + [place] [address] R Unavailable Unavailable Unavailable SHANK, YISSEL Unavailable [address] + [place] [address] SHANK, JED Unavailable Unavailable + R Unavailable Unavailable Unavailable SHANK, YISSEL Unavailable [address] + [place] [address] SHANK, JED Unavailable Unavailable + R Unavailable Unavailable Unavailable SHANK, YISSEL Unavailable [address] + [place] [address] SHANK, JED Unavailable Unavailable + R Unavailable Unavailable Unavailable SHANK, YISSEL Unavailable [address] + [place] [address] SHANK, JED Unavailable . + [place] [address] R Unavailable Unavailable Unavailable SHANK, YISSEL Unavailable [address] + [place] [address] SHANK, JED Unavailable Unavailable + R Unavailable Unavailable Unavailable SHANK, YISSEL Unavailable [address] + [place] [address] SHANK, JED Unavailable . + [place] [address] R Unavailable Unavailable Unavailable SHANK, YISSEL Unavailable [address] + [place] [address] SHANK, JED Unavailable Unavailable + R Unavailable Unavailable Unavailable SHANK, YISSEL Unavailable [address] + [place] [address] SHANK, JED Unavailable Unavailable + R Unavailable Unavailable Unavailable SHANK, YISSEL Unavailable [address] + [place] [address] SHANK, JED Unavailable Unavailable + [place] [address] R Unavailable Unavailable Unavailable SHANK, YISSEL Unavailable [address] + [place] [address] SHANK, JED Unavailable Unavailable + R Unavailable Unavailable Unavailable SHANK, YISSEL Unavailable [address] + [place] [address] SHANK, JED Unavailable Unavailable + SHANK, YISSEL Unavailable Unavailable + SHANK, EDIS Unavailable Unavailable + SHANKJULIOY Unavailable Unavailable Unavailable R Unavailable Unavailable Unavailable SHANK, YISSEL Unavailable [address] + [place] [address] SHANK, JED Unavailable . + [place] [address] R Unavailable Unavailable Unavailable SHANK, YISSEL Unavailable [address] + [place] [address] SHANK, JED Unavailable Unavailable + R Unavailable Unavailable Unavailable SHANK, YISSEL Unavailable [address] + [place] [address] SHANK, JED Unavailable Unavailable + R Unavailable Unavailable Unavailable SHANK, YISSEL Unavailable [address] + [place] [address] SHANK, JED Unavailable Unavailable + R Unavailable Unavailable Unavailable SHANK, YISSEL Unavailable [address] + [place] [address] SHANK, JED Unavailable Unavailable + R Unavailable Unavailable Unavailable SHANK, YISSEL Unavailable [address] + [place] [address] SHANK, JED Unavailable . + ., [place] . SHANK, YISSEL Unavailable Unavailable + SHANK, EDIS Unavailable Unavailable + SHANKJULIOY Unavailable Unavailable Unavailable R Unavailable Unavailable Unavailable SHANK, YISSEL Unavailable [address] + [place] [address] SHANK, JED Unavailable Unavailable + R Unavailable Unavailable Unavailable SHANK, YISSEL Unavailable [address] + [place] [address] SHANK, JED Unavailable Unavailable + R Unavailable Unavailable Unavailable SHANK, YISSEL Unavailable [address] + [place] [address] SHANK, JED Unavailable Unavailable + R Unavailable Unavailable Unavailable SHANK, YISSEL Unavailable [address] + [place] [address] SHANK, JED Unavailable Unavailable + R Unavailable Unavailable Unavailable SHANK, YISSEL Unavailable [address] + [place] [address] SHANK, JED Unavailable Unavailable + R Unavailable Unavailable Unavailable SHANK, YISSEL Unavailable [address] + [place] [address] SHANK, JED Unavailable Unavailable + [place] [address] SHANK, YISSEL Unavailable Unavailable + EDIS GAUTAM Unavailable Unavailable + ANGEL LUIS GAUTAM Unavailable Unavailable Unavailable R Unavailable Unavailable Unavailable SHANK, YISSEL Unavailable [address] + [place] [address] SHANK JED Unavailable Unavailable + R Unavailable Unavailable Unavailable SHANK, YISSEL Unavailable [address] + [place] [address] R Unavailable Unavailable Unavailable SHANK, YISSEL Unavailable [address] + [place] [address] SHANK, JED Unavailable Unavailable + R Unavailable Unavailable Unavailable SHANK, YISSEL Unavailable [address] + [place] [address] R Unavailable Unavailable Unavailable SHANK, YISSEL Unavailable [address] + [place] [address] R Unavailable Unavailable Unavailable SHANK, YISSEL Unavailable [address] + [place] [address] SHANK, JED Unavailable Unavailable + R Unavailable Unavailable Unavailable SHANK, YISSEL Unavailable [address] + [place] [address] SHANK, JED Unavailable Unavailable + R Unavailable Unavailable Unavailable SHANK, YISSEL Unavailable [address] + [place] [address] SHANK, JED Unavailable Unavailable + R Unavailable Unavailable Unavailable SHANK, YISSEL Unavailable [address] + [place] [address] Care Team Providers Name Role Phone SEMAJ PAGE Attending Unavailable SEMAJ PAGE Referring Unavailable KAYLEE, SEMAJ A Referring Unavailable LUIS DANIEL KILGORE (HAMMAD) Attending Unavailable KAYLEE, SEMAJ A Referring Unavailable KAYLEE, SEMAJ A Attending Unavailable KAYLEE, SEMAJ A Referring Unavailable GIANA RUIZ (TYSHAWN) Attending Unavailable KAYLEE, SEMAJ A Referring Unavailable TABARESHELENA MUNIZ Admitting Unavailable TABARESHELENA MUNIZ Attending Unavailable KAYLEE, SEMAJ A Primary Care Unavailable KAYLEE, SEMAJ A Referring Unavailable TABARESHELENA Attending Unavailable KAYLEE, SEMAJ A Referring Unavailable KAYLEE, SEMAJ A Primary Care Unavailable TABARESHELENA Attending Unavailable TABARESHELENA E Referring Unavailable Isckarus, Mansour Attending Unavailable Audelia Coronado.O. Referring Unavailable Kaylee, Semaj Primary Care Unavailable Prah, Kiel Consulting Unavailable Isckarus, Mansour Consulting Unavailable Isckarus, Mansour Attending Unavailable Audelia Coronado.O. Referring Unavailable Kaylee, Semaj Primary Care Unavailable Prah, Kiel Consulting Unavailable Audelia Coronado.O. Attending Unavailable Audelia Coronado.O. Referring Unavailable Audelia Coronado.O. Attending Unavailable Audelia Coronado.O. Referring Unavailable Homa, Chaitanya Attending Unavailable Audelia Coronado.O. Referring Unavailable Kaylee, Semaj Primary Care Unavailable Prah, Kiel Consulting Unavailable Isckarus, Mansour Consulting Unavailable Cecy Eng Attending Unavailable Audelia Coronado.O. Referring Unavailable Kaylee, Semaj Primary Care Unavailable Prah, Kiel Consulting Unavailable Isckarus, Mansour Consulting Unavailable Drifting, Nik Attending Unavailable Kaylee, Semaj Referring Unavailable Kaylee, Semaj Primary Care Unavailable Drifting, Nik Attending Unavailable Drifting, Nik Referring Unavailable Kaylee, Semaj Primary Care Unavailable Homa, Chaitanya Attending Unavailable Homa, Chaitanya Referring Unavailable Homa, Chaitanya Attending Unavailable Homa, Chaitanya Referring Unavailable Kaylee, Semaj Primary Care Unavailable Drifting, Nik Attending Unavailable Isckarus, Mansour Attending Unavailable Antonio Brown D.O. Referring Unavailable Kaylee, Semaj Primary Care Unavailable Prah, Kiel Consulting Unavailable Isckarus, Mansour Consulting Unavailable Isckarus, Mansour Attending Unavailable Karen Desir Attending Unavailable Kaylee, Semaj Referring Unavailable Isckarus, Mansour Attending Unavailable Antonio Chin D.O. Referring Unavailable Kaylee, Semaj Primary Care Unavailable Prah, Kiel Consulting Unavailable Isckarus, [place] Consulting Unavailable Velasquez, Cecy Referring Unavailable Kaylee, Semaj Primary Care Unavailable Velasquez, Cecy Attending Unavailable Velasquez, Cecy Attending Unavailable Stanislav CoronadoO. Referring Unavailable Kaylee, Semaj Primary Care Unavailable Prah, Kiel Consulting Unavailable Isckarus, Mansour Consulting Unavailable Homa, Chaitanya Attending Unavailable Audelia Coronado.O. Referring Unavailable Kaylee, Semaj Primary Care Unavailable Prah, Kiel Consulting Unavailable Isckarus, Mansour Consulting Unavailable Homa Chaitanya Attending Unavailable Homa, Chaitanya Referring Unavailable Homa, Chaitanya Attending Unavailable Homa, Chaitanya Referring Unavailable Homa, Chaitanya Attending Unavailable Audelia Coronado.O. Referring Unavailable Kaylee, Semaj Primary Care Unavailable Prah, Kiel Consulting Unavailable Isckarus, Mans[place] Consulting Unavailable Rita Cedillo PA-C Attending Unavailable Kaylee, Semaj Referring Unavailable Isckarus, Mansour Attending Unavailable Audelia Coronado.O. Referring Unavailable Kaylee, Semaj Primary Care Unavailable Prah, Kiel Consulting Unavailable Isckarus, Mansour Consulting Unavailable Isckarus, Mansour Attending Unavailable Audelia Coronado.O. Referring Unavailable Kaylee, Semaj Primary Care Unavailable Prah, Kiel Consulting Unavailable Isckarus, Mansour Consulting Unavailable Karen Desir Attending Unavailable Kaylee, Semaj Referring Unavailable Kaylee, Semaj Primary Care Unavailable Antonio Chin D.O. Attending Unavailable Stanislav CoronadoO. Referring Unavailable Kaylee, Semaj Primary Care Unavailable Isckarus, Mansour Attending Unavailable Stanislav CoronadoO. Referring Unavailable Kaylee, Semaj Primary Care Unavailable Prah, Kiel Consulting Unavailable Isckarus, Mansour Consulting Unavailable Stanislav CoronadoO. Attending Unavailable Audelia Coronado.O. Referring Unavailable Kaylee, Semaj Primary Care Unavailable Isckarus, Mansour Attending Unavailable Isckarus, Mansour Referring Unavailable Kaylee, Semaj Primary Care Unavailable Isckarus, Mansour Attending Unavailable Audelia Coronado.O. Referring Unavailable Kaylee, Semaj Primary Care Unavailable Prah, Kiel Consulting Unavailable Isckarus, Mansour Consulting Unavailable Stanislav CoronadoO. Attending Unavailable Kaylee, Semaj Referring Unavailable Antonio Chin D.O. Attending Unavailable Audelia Coronado.O. Referring Unavailable Kaylee, Semaj Primary Care Unavailable Antonio Chin D.O. Consulting Unavailable Kaiden, Ryan Attending Unavailable Kaiden, Ryan Referring Unavailable Kaylee, Semaj Primary Care Unavailable Antonio Chin D.O. Attending Unavailable Antonio Chin D.O. Referring Unavailable Kaylee, Semaj Primary Care Unavailable Jopperi, Alexandr Admitting Unavailable Kaiden, Ryan Attending Unavailable Kaylee, Semaj Primary Care Unavailable Kaiden, Ryan Consulting Unavailable Gbaruk, Kombian Consulting Unavailable Jopperi, Alexandr Admitting Unavailable Sonja Rossi NP-C Attending Unavailable Kaylee, Semaj Primary Care Unavailable Kaiden, Ryan Consulting Unavailable Gbaruk, Kombian Consulting Unavailable Jopperi, Alexandr Admitting Unavailable Jopperi, Alexandr Attending Unavailable Kaylee, Semaj Primary Care Unavailable Jopperi, Alexandr Consulting Unavailable Kaylee, Semaj Primary Care Unavailable Jopperi, Alexandr Admitting Unavailable Kaiden, Ryan Consulting Unavailable Marioaruk, Kombian Attending Unavailable Isckarus, Mansour Attending Unavailable Isckarus, Mansour Referring Unavailable Kaylee, Semaj Primary Care Unavailable Velasquez, Cecy Attending Unavailable Audelia Coronado.O. Referring Unavailable Kaylee, Semaj Primary Care Unavailable Prah, Kiel Consulting Unavailable Isckarus, Mansour Consulting Unavailable Velasquez, Cecy Attending Unavailable Antonio Chin D.O. Referring Unavailable Kaylee, Semaj Primary Care Unavailable Prah, Kiel Consulting Unavailable Isckarus, Mansour Consulting Unavailable Isckarus, Mansour Attending Unavailable Audelia Coronado.O. Referring Unavailable Kaylee, Semaj Primary Care Unavailable Prah, Kiel Consulting Unavailable Isckarus, Mansour Consulting Unavailable Antonio Chin D.O. Attending Unavailable Kaylee, Semaj Referring Unavailable Isckarus, Mansour Attending Unavailable Audelia Coronado.Bill. Referring Unavailable Kaylee, Semaj Primary Care Unavailable Prah, Kiel Consulting Unavailable Isckarus, Mansour Consulting Unavailable Chaitanya Luther Attending Unavailable Audelia Coronado.Bill. Referring Unavailable Kaylee, Semaj Primary Care Unavailable Prah, Kiel Consulting Unavailable Isckarus, Mansour Consulting Unavailable Chaitanya Luther Attending Unavailable Audelia Coronado.Bill. Referring Unavailable Kaylee, Semaj Primary Care Unavailable Prah, Kiel Consulting Unavailable Isckarus, Mansour Consulting Unavailable Isckarus, Mansour Attending Unavailable Audelia Coronado.O. Referring Unavailable Kaylee, Semaj Primary Care Unavailable Prah, Kiel Consulting Unavailable Isckarus, Mansour Consulting Unavailable Chaitanya Luther Attending Unavailable Antonio Chin D.O. Referring Unavailable Kaylee, Semaj Primary Care Unavailable Prah, Kiel Consulting Unavailable Isckarus, Mansour Consulting Unavailable Homa, Chaitanya Attending Unavailable Antonio Chin D.O. Referring Unavailable Kaylee, Semaj Primary Care Unavailable Prah, Kiel Consulting Unavailable Isckarus, Mansour Consulting Unavailable Isckarus, Mansour Attending Unavailable Antonio Chin D.O. Referring Unavailable Kaylee, Semaj Primary Care Unavailable Prah, Kiel Consulting Unavailable Isckarus, Mansour Consulting Unavailable Patrick Luthere Attending Unavailable Chaitanya Luther Referring Unavailable PROBLEMS PROBLEMS DATE TYPE CONDITION / CODE ATTENDING STATUS SOURCE 07/24/2018 Unknown C34.31 - Malignant Isckarus, Active [place] neoplasm of lower [facility] lobe, right bronchus Hospital or lung / Repository C34.31(ICD-10) 07/24/2018 Unknown C34.2 - Malignant Isckarus, Active [place] neoplasm of middle [facility] lobe, bronchus or Hospital lung / C34.2(ICD-10) Repository 07/24/2018 Unknown D64.9 - Anemia, Isckarus, Active [place] unspecified / [facility] D64.9(ICD-10) Hospital Repository 06/21/2016 Active Disorder of NA Active [place] prostate, Clinic Main unspecified / [place] N42.9(ICD-10) Repository 07/10/2018 Active Hypokalemia / NA Active [place] E87.6(ICD-10) Clinic Main [place] Repository 07/10/2018 Active Hypocalcemia / NA Active [place] E83.51(ICD-10) Clinic Main [place] Repository 07/10/2018 Active Unknown / PODLOGAR, Active [place] UNK(Unknown) GIANA (WEBSITE ADMIN) Clinic Main [place] Repository 07/03/2018 Unknown Z51.0 - Encounter Velasquez, Active [place] for antineoplastic [facility] radiation therapy / Hospital Z51.0(ICD-10) Repository 07/03/2018 Unknown E87.6 - Hypokalemia Velasquez, Active [place] / [facility]2018 Unknown E87.1 - Velasquez, Active [place] [facility] E87.1(ICD-10) Repository 06/04/2018 Unknown R05 - Cough / Velasquez, Active [place] R05(ICD-10) Cecy [facility] Hospital Repository 06/10/2018 Unknown J18.9 - Pneumonia, Velasquez, Active [place] unspecified organism Cecy [facility] / J18.9(ICD-10) Hospital Repository 06/10/2018 Unknown K20.8 - Other Chaitanya Luther Active [place] esophagitis / Community K20.8(ICD-10) Hospital Repository 06/10/2018 Unknown C34.91 - Malignant Chaitanya Luther Active [place] neoplasm of Community unspecified part of Hospital right bronchus or Repository lung / C34.91(ICD-10) 06/10/2018 Unknown K21.0 - Chaitanya Luther Active [place] Gastro-esophageal Community reflux disease with Hospital esophagitis / Repository K21.0(ICD-10) 06/10/2018 Unknown J90 - Pleural Isckarus, Active [place] effusion, not [place] Community elsewhere classified Hospital / J90(ICD-10) Repository 04/16/2018 Unknown R89.7 - Abnormal Chaitanya Luther Active [place] histological Community findings in Hospital specimens from other Repository organs, systems and tissues / R89.7(ICD-10) 06/10/2018 Unknown Z45.2 - Encounter Jd, Active [place] for adjustment and Nik [facility] management of Hospital vascular access Repository device / Z45.2(ICD-10) 02/25/2018 Admitting Malignant neoplasm RAYSA, Active [facility] diagnosis of unspecified part [facility] of right bronchus or [facility] lung / Center C34.91(ICD-10) Repository 03/04/2018 Unknown J44.9 - Chronic Desir, Active [place] obstructive [facility] pulmonary disease, Hospital unspecified / Repository J44.9(ICD-10) 02/25/2018 Admitting New Patient / RAYSA, Active [facility] diagnosis [id number]() [facility] Repository 06/10/2018 Unknown F17.201 - Nicotine Antonio Chin, Active [place] dependence, D.O. Community unspecified, in Hospital remission / Repository F17.201(ICD-10) 06/10/2018 Unknown F17.210 - Nicotine Antonio Chin, Active [place] dependence, D.O. Community cigarettes, Hospital uncomplicated / Repository F17.210(ICD-10) 02/05/2018 Active Hypo-osmolality and NA Active [place] hyponatremia / Clinic Main E87.1(ICD-10) [place] Repository 03/31/2015 Active Essential (primary) NA Active [place] hypertension / Clinic Main I10(ICD-10) [place] Repository 03/31/2015 Active Mixed hyperlipidemia NA Active [place] / E78.2(ICD-10) Clinic Main [place] Repository 01/22/2018 Unknown C34.90 - Malignant Antonio Chin, Active [place] neoplasm of D.O. Community unspecified part of Hospital unspecified bronchus Repository or lung / C34.90(ICD-10) 07/25/2016 Active Encounter for NA Active [place] screening for Clinic Main malignant neoplasm [place] of colon / Repository Z12.11(ICD-10) PROCEDURES PROCEDURES No Procedure Records FoundRESULTS RESULTS IRON+IRON BINDING Collected: 07/24/2018 Status: F Source: [place] 1:24 PM [facility] REPOSITORY Order Comment: Reason for Laboratory Test ADD-ON TYPE CODE TESTS RESULT OUT OF RANGE REFERENCE UNITS LAB L503.6075 250-450 ug/dL TIBC Normal 272 LAB L503.6150 65-175 ug/dL Low IRON 59 LAB L503.6250 15.0-55.0 % IRON Normal SATURATION 21.7 Performed By: #### L503.6030, L503.6550 #### [facility] [address] [place], [place], [id number] FERRITIN Collected: 07/24/2018 Status: F Source: [place] 1:24 PM [facility] REPOSITORY Order Comment: Reason for Laboratory Test ADD-ON TYPE CODE TESTS RESULT OUT OF RANGE REFERENCE UNITS LAB L503.6550 26-388 ng/mL Normal FERRITIN 284 Performed By: #### L503.6030, L503.6550 #### [facility] [address] [place], [address] VITAMIN B12 Collected: 07/24/2018 Status: F Source: [place] 1:24 PM [facility] REPOSITORY Order Comment: Reason for Laboratory Test ADD-ON TYPE CODE TESTS RESULT OUT OF REFERENCE UNITS RANGE LAB L503.0105 211-911 pg/mL High Vitamin B12 1908 Performed By: #### L503.0105 #### [facility] [address] [place], [address] ONCOLOGY VISIT REPORT Observed: 07/24/2018 Status: F Source: [place] 1:09 PM [facility] REPOSITORY [facility] [address] 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 He was in his usual state of health until May 2017 when he experienced an episode of hemoptysis , chest x-ray showed a right middle lobe infiltrate and he was treated for pneumonia and improved. However November 2017 experienced recurrence of hemoptysis in addition to worsening dyspnea and December 11, 2017 CT scan of the chest showed a right middle lobe mass associated with complete atelectasis of the right middle lobe. January 17, 2018 bronchoscopy with EBUS: FINDINGS: The visualized oropharynx appears normal. The vocal cords appeared normal and moved normally with breathing. The subglottic space is normal. The trachea was of normal caliber. The courtney is sharp. The tracheal bronchial trees of the left and right lungs were examined to at least the first subsegmental level. There was scant mucoid secretions noted in the left lower lobe. Within the right tracheal bronchial tree, there was a fungating obstructing mass occupying the orifice of the right middle lobe and right lower lobe. Only a slitlike portion of the right lower lobe orifice could be visualized. The lesion could not be traversed with the bronchoscope. Once the airway inspection was completed, the standard bronchoscope was withdrawn and a convex probe endobronchial ultrasound (EBUS) bronchoscope was inserted through the same route. The endobronchial ultrasound endoscope was then utilized to systematically examine the superior/inferior mediastinal and hilar lymph nodes to assist with fine-needle aspiration. No significant left-sided hilar lymphadenopathy was identified. 2 small lymph nodes were identified at lymph node station #7 (subcarina) and subsequently biopsied In total, 6 transbronchial needle aspirations were completed at 2 different lymph node stations. Transbronchial needle aspiration was performed at lymph node station #7(subcarina) using an Olympus EBUS-TBNA 19-gauge needle and sent for routine cytology. The procedure was guided by ultrasound. 3 samples were obtained. Transbronchial needle aspiration was then performed of the right-sided hilar lesion which encompassed the right middle lobe and right lower lobe takeoff, using an Olympus EBUS-TBNA 19-gauge needle and sent for routine cytology. The procedure was guided by ultrasound. 3 samples were obtained. Rapid on-site evaluation (ELYSIA): Preliminary cytology was suggestive of non-small cell carcinoma. Final pathology results are pending. Following this, the EBUS endoscope was subsequently withdrawn from the patient's airway through the LMA. A conventional bronchoscope was then reinserted into the patient's airway, at which time, endobronchial biopsies were obtained from the right middle lobe orifice, where the fungating mass was most pronounced. A total of 3 endobronchial forceps biopsies were completed. Bronchial washing was completed in the bronchus intermedius. Ice cold saline was infused into the region to facilitate achieving hemostasis. All retained secretions and/or blood was cleared from the patient's airway. The bronchoscope was then withdrawn without complication. The patient was then transferred to the PACU, where they recovered in the usual fashion. IMPRESSION: 1. Large right-sided obstructing lung mass. The fungating endobronchial portions of this lesion obstructed the orifice of the right middle and right lower lobes. The lesion was not able to be traversed by the bronchoscope. 2. Subcarinal lymphadenopathy status post transbronchial needle aspiration 3. Mucoid secretions within the left lower lobe. 4. No significant left-sided hilar adenopathy was identified. Pathology: MICROSCOPIC DIAGNOSIS RML, endobronchial biopsy: Non-small cell carcinoma, favor squamous cell carcinoma DIAGNOSIS CYTOLOGY A. EBUS aspiration #1, site 7: Negative for malignant cells. Adequate for evaluation, lymphocytes present. B. EBUS aspiration #2, site 7: Negative for malignant cells. Mostly blood. A few respiratory epithelial cells. C. EBUS aspiration #3, site 7: Negative for malignant cells. Adequate for evaluation lymphocytes present. D. EBUS aspiration #4, hilar mass: Malignant cells present derived from non-small cell carcinoma. E. EBUS aspiration #5, hilar mass: Malignant cells present derived from non-small cell carcinoma. F. EBUS aspiration #6, hilar mass: Malignant cells present derived from non-small cell carcinoma. G. Site 7, TBNA, fluid (cytospin and cell block): Negative for metastatic carcinoma. See cytology study and comment. H. Hilar mass, TBNA (cytospin and cell block): Malignant cells present derived from non-small cell carcinoma, favor squamous cell carcinoma. See comment. I. RML, washing (cytospin and cell block): A few atypical squamous epithelial cells are noted. ANTIBODY / CLONE RESULT Block H AE1-3 (AE1/AE3/PCK26) positive, focal CK7 (OV-TL12/30) negative CK8 (27orgoX40) positive, focal CK20 (KS20.8) negative TTF-1 (8G7G3/1) negative Napsin A (Rabbit Polyclonal) negative HepPar (OCh1E5) negative RCC (PN-15) negative PSA (ER-PR8) negative CK5-6 (D5 AND 1684) positive P40 (BC28) positive PET CT January 27, 2018: IMPRESSION: 1. ABNORMAL EXAMINATION INDICATIVE OF MALIGNANT VIABLE NEOPLASM. 2. Increased glucose concentration identified in the right thoracic perihilum, infrahilar region fulfills quantitative criteria for viable neoplasm. (VanSteenkiatul et al, Journal of Clinical Oncology 16:2142, 1998). 3. Subtle increased glucose concentration observed in the right lower lateral hemithorax pulmonary parenchyma corresponding to apparent atelectatic change likely represents activated leukocytes associated with a localized inflammatory process-obstructive pneumonitis. 4. The increase in glucose concentration observed in the descending thoracic, as well as abdominal aorta is commensurate with activated leukocytes associated with atherosclerotic plaque formation. (Michael et al, Clinical Nuclear Medicine 29:93, 2004). 5. Asymmetric increased glucose concentration visualized in the left diaphragmatic crura is most consistent with a component muscle tension artifact. Brain MRI January 29, 2018: No evidence of metastases PFTs January 2018: INTERPRETATION: Forced expiration spirometry demonstrates the presence of a very severe large airways obstructive ventilatory defect. There was a significant response to aerosolized bronchodilators. Spirograms are of good quality and do not plateau indicating slow emptying of the lungs. Body plethysmography was performed and reveals an elevated RV to 232% of predicted, indicative of underlying air trapping. Diffusing capacity by single breath CO severely reduced at 38% of predicted. IMPRESSION: These pulmonary function studies demonstrate the presence of a partially reversible very severe large airways obstructive ventilatory defect with associated air trapping and symmetric reduction in diffusing capacity. March 04, 2018: Surgical consultation at [facility] found the patient a poor surgical candidate due to insufficient pulmonary reserve. March 27, 2018: No pleural effusion noted, diagnostic thoracocentesis was negative for malignancy. Treatment: Concomitant chemo (weekly carbotaxol X5) with radiation March 19, 2018-April 15, 2018. Consolidation with carbotaxol 2 cycles May through May 2018. - Past Medical/Social History Past Medical History Cancer: Lung cancer Other Cancer History: BCC MULTIPLE Social History Social History: No changes Smoking Status Former smoker Review of Systems Constitutional:: Denies: Fever, Sweats, Weight loss, Appetite change, Chills Cardiovascular:: Reports: Dyspnea on exertion. Denies: Chest pain, Palpitations, Orthopnea, PND, Shortness of breath Respiratory: Reports: Shortness of breath upon exertion. Denies: Cough, Hemoptysis, Shortness of Breath, Wheezing Gastrointestinal:: Denies: Abdominal pain, Nausea, Vomiting, Diarrhea, Constipation, Hematochezia Genitourinary: Denies: Dysuria, Hematuria, 15, Flank pain Musculoskeletal:: Denies: Back pain, Myalgia, Arthralgia Skin: Denies: Rash, Skin Changes, Wounds Neurological:: Denies: Headache, Dizziness, Visual changes, Tinnitus, Hearing loss Psychiatric: Denies: Anxiety, Depression, Homicidal Ideations, Suicidal Ideations Vital Signs Height 5 ft 9 in Weight: 89.086 kg Weight in Pounds 196.4 lbs BMI 29.9 Pulse Ox 100 - Physical Exam General: Alert, Oriented x3, No apparent distress, - - ECOG 1 HEENT: Atraumatic, PERRLA, EOMI, Normocephalic Oropharynx:: Dry mucosa Neck:: Supple, Trachea midline, - - ort okay. Negative for: JVD, bilateral Cardiac:: Regular rate, Regular rhythm, Normal S1, Normal S2. Negative for: Murmur Lungs: Clear to auscultation, Diminished, Excusion symmetrical. Negative for: Rhonchi, Wheezes Abdomen:: Soft, Non-tender, Non-distended. Negative for: Hepatosplenomegaly Extremities:: Negative for: Cyanosis, Edema Neurological: Neuro grossly intact Skin:: Negative for: Lesions, Rash, Petechiae, Ecchymosis Psychiatric:: Appropriate affect, Euthymic Lymphatics:: Negative for: Cervical lymphadenopathy, Supraclavicular lymphadenopathy Laboratory Data: Laboratory Tests WBC 5.8 (4.4-11.0) K/mm3 RBC 2.94 L (4.6-6.2) M/mm3 Hgb 9.3 L (13.0-16.5) g/dl Diagnostic Data: Diagnostic Data CT chest July 2018: IMPRESSION: 1. Since 04/23/2018, overall favorable. Decreased size of right middle lobe masslike consolidation presumed to represent patient's known lung neoplasm. 2. Reticulonodular densities in the right lower lobe are new since most recent radiation planning study but favor sequela of radiation pneumonitis or infection/inflammation/atelectasis rather than neoplasm. CT abdomen and pelvis July 2018: IMPRESSION: 1. Partially visualized right middle lobe opacity/consolidation. 2. Atelectatic changes in the right lower lobe. 3. Small right pleural effusion. 4. Nonspecific fluid-filled small bowel loops without evidence of bowel obstruction. 5. Small liver lesion which could represent cyst difficult to characterize on this exam. Ultrasound might be of further value. 6. Small bilateral renal cysts. 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 Clinical and radiologic staging is consistent with localized disease IIIA (T4, Nx, M0) but patient not a surgical candidate due to poor pulmonary reserve. Received combined chemoradiation March - March Followed by consolidation with 2 cycles of carbo Taxol May -May 2018. A right pleural effusion was noted March 25, underwent a diagnostic tap and cytology is negative. CT scan images of chest and abdomen July 2018 show a favorable response no evidence to suggest metastatic disease. And nonspecific liver abnormality probable cyst need further evaluation with an ultrasound to complete assessment Comorbid conditions: COPD, hypertension and dyslipidemia. Plan: Consolidation therapy with Durvalumab (anti-PDL 1 monoclonal antibody immune therapy) maintenance for 1 year which in clinical trials was shown to increase progression free survival from the median of about 6 months to 18 months. Patient was seen was his impression and plan discussed. He would like to restart upon return from a planned vacation in [place] for the month of August 2018 Medications: Prescriptions This Visit Medication Instructions Recorded Primary Care Provider: Semaj Page MD Referring Provider: Antonio Chin DO 07/24/18 1309 <Electronically signed by Juan Carlos Plummer MD> Date Juan Carlos Plummer MD Cosigner Signature: Date (if applicable) CC: Semaj Page MD; Chaitanya Luther DO CBC W/DIFF, AUTOMATED Collected: 07/24/2018 Status: F Source: [place] 10:49 AM [facility] REPOSITORY Order Comment: Reason for Laboratory Test . TYPE CODE TESTS RESULT OUT OF RANGE REFERENCE UNITS LAB L100.1000 4.4-11.0 K/mm3 Normal WBC 5.8 LAB L100.1200 4.6-6.2 M/mm3 Low RBC 2.94 LAB L100.1300 13.0-16.5 g/dl Low HGB 9.3 LAB L100.1400 40-54 % Low HCT 29.4 LAB L100.1500 80-94 fL High MCV 100.0 LAB L100.1600 27.0-32.0 pg Normal MCH 31.6 LAB L100.1700 32-36 g/gl Low MCHC 31.6 LAB L100.1810 11.6-14.6 % High RDW CV 17.7 LAB L100.1820 35.1-43.9 fl High RDW SD 65.3 LAB L100.1900 150-450 K/mm3 Low PLT 107 LAB L100.2000 6.2-12.0 fl Normal MPV 8.4 LAB L100.2100 47-70 % High NEUT% 78.7 LAB L100.2200 19-41 % Low LY% 8.9 LAB L100.2300 0-10 % High MONO% 10.6 LAB L100.2400 0-5 % Normal EO% 1.4 LAB L100.2500 0-1 % Normal BASO% 0.2 LAB L100.2550 0.0-0.9 % Normal IM GRAN % 0.200 Result Comment: IG% - Immature Granulocytes (promyelocytes, myelocytes and metamyelocytes) > 1% indicates that a LEFT SHIFT is Present. LAB L100.2620 2.0-7.7 X10 3/uL Absolute Normal Neut 4.5 LAB L100.2720 0.83-4.51 X10 3/ul Low Absolute Lymph 0.51 LAB L100.4500 SMEAR Normal COMMENT SCANNED LAB L100.7300 ANISO Normal 2+ LAB L100.7700 Normal MICROCYTES 1+ LAB L100.7800 Normal MACROCYTE 1+ Performed By: #### L100.0100 #### [facility] [address] [place], [place], [address] COMPREHENSIVE METABOLIC Collected: 07/24/2018 Status: F Source: [facility] 10:49 AM [facility] REPOSITORY Order Comment: Reason for Laboratory Test . TYPE CODE TESTS RESULT OUT OF RANGE REFERENCE UNITS LAB L501.0100 74-106 mg/dL Normal GLU 77 Result Comment: Please note revised GLUCOSE reference range effective 2017. LAB L501.1000 7-18 mg/dL Normal BUN 15 LAB L501.1100 0.70-1.30 mg/dL Normal CREAT,SERUM 0.90 Result Comment: The validity of the calculated GFR AND GFRAA in patients over 70 years has not been determined. Clinical correlation is essential. LAB L501.1110 >60 mL/min Normal EST GFR 89 Result Comment: Non- GFR Calc LAB L501.1115 >60 mL/min Normal EST GFR - AA 108 Result Comment: GFR Calc LAB L501.1255 ml/min Normal Estimated CRCL 79.65 LAB L501.1300 10-20 RATIO Normal BUN/CRE 16.6 LAB L501.1500 6.4-8. g/dL Normal 2 T PROT 6.6 LAB L501.1800 3.2-5. g/dL Normal 0 ALB 3.2 LAB L501.1950 2.2-4. g/dL Normal 2 GLOB 3.4 LAB L501.2000 0.9-2. RATIO Normal 4 A/G 0.9 LAB L501.2200 8.5-10 mg/dL Low .1 CA 8.3 LAB L501.4100 15-37 U/L Normal AST 17 LAB L501.4305 45-117 U/L High ALK P 164 LAB L501.4405 16-61 U/L Normal ALT 18 LAB L501.4600 0.20-1 mg/dL Normal .00 T BILI 0.70 LAB L501.5300 136-14 mmol/L Normal 5 NA 137 LAB L501.5600 3.5-5. mmol/L Normal 1 K 3.8 LAB L501.5900 98-107 mmol/L Normal CL 104 LAB L501.6100 21.0-3 mmol/L Normal 2.0 CO2 27.0 LAB L501.6200 5-15 Normal GAP 6 Performed By: #### L500.4050 #### [facility] [address] [place], [address] CHEST WITH CONTRAST Observed: 07/18/2018 Status: F Source: [place] 12:57 PM [facility] REPOSITORY [facility] Imaging Services [address] [place] [address] Chest WITH Contrast MR#: [id number] Acct: [id number] Name: ANGEL LUIS GAUTAM Rep #: [id number] : 1950 M 67 From: Gee Malagon MD PCP: Semaj Page MD Status: REG CLI Study: Chest WITH Contrast Date of Exam: 07/18/18 Exam# [id number] Ordering Dr: Juan Carlos Plummer MD STUDY: CT CHEST WITH CONTRAST REASON FOR EXAM: Male, 67 years old. Lung cancer restaging following chemotherapy and radiation therapy RADIATION DOSAGE (If Supplied By Facility): CTDIvol = ( 16.09 ) mGy, DLP = ( 1374.83 ) mGycm TECHNIQUE: Transaxial imaging was performed following intravenous administration of 100 ml of Isovue 300 contrast material. Multiplanar coronal and sagittal images were reformatted. Individualized dose optimization techniques were used for this CT. COMPARISON: Radiation planning study of 04/23/2018 FINDINGS: Masslike consolidation involving the inferior right middle lobe has decreased in size when compared to prior radiation planning study. The mass currently measures 4.6 x 4.6 cm (previously measured 7.6 x 6.0 cm). The central cavitation evident on the prior study (image 84 of the prior study ) is no longer identified. Partial reexpansion of the right middle lobe since the prior study. Small volume right pleural effusion remains stable. Mild interstitial thickening involving the right middle lobe and right lower lobe likely sequela of intervening radiation therapy. Elongated subpleural nodular density along the superior portion of the right lower lobe is best seen on sagittal image 169 with axial diameter measuring up to 9 mm, but likely sequela of radiation therapy or inflammation rather than neoplasm given the elongated appearance on sagittal view. There is subtle small areas of rounded density medial right lower lobe measuring up to 5 mm as well as a subpleural right lower lobe posteriorly are also more likely related to atelectasis, post radiation pneumonitis or inflammation. Right jugular chest port is stable. Normal heart and pericardium. Normal mediastinum. Normal hilar regions. Normal enhanced pulmonary arteries. Normal aorta arch and descending thoracic aorta. Degenerative changes of the thoracic spine without lytic or sclerotic bone lesion demonstrated. The adrenal glands are not enlarged. There is a simple cyst of the left kidney. CT/Chest WITH Contrast IMPRESSION: 1. Since 04/23/2018, overall favorable. Decreased size of right middle lobe masslike consolidation presumed to represent patient's known lung neoplasm. 2. Reticulonodular densities in the right lower lobe are new since most recent radiation planning study but favor sequela of radiation pneumonitis or infection/inflammation/atelectasis rather than neoplasm. Electronically Signed: Gee Malagon MD at 14:12 EST , Service support , CC: Semaj aPge MD; Juan Carlos Plummer MD Rn Unit Manager: Signed ABDOMEN WITH IV Observed: 07/18/2018 Status: F Source: [place] CONTR[place] 12:54 PM [facility] REPOSITORY [facility] Imaging Services [address] [place] [address] Abdomen WITH IV Contrast MR#: [id number] Acct: [id number] Name: ANGEL LUIS GAUTAM Rep #: [id number] : 1950 M 67 From: Erick Lennon MD PCP: Semaj Page MD Status: REG CLI Study: Abdomen WITH IV Contrast Date of Exam: 07/18/18 Exam# [id number] Ordering Dr: Juan Carlos Plummer MD STUDY: CT ABDOMEN WITH CONTRAST REASON FOR EXAM: Male, 67 years old. History of lung cancer, restaging. RADIATION DOSAGE (If Supplied By Facility): CTDIvol = ( 16.09 ) mGy, DLP = ( 1374.83 ) mGycm TECHNIQUE: Transaxial images were obtained post I.V. administration of 100 ml of Isovue 300 contrast, and without oral contrast. Sagittal and coronal images were reconstructed. Individualized dose optimization techniques were used for this CT. COMPARISON: Prior comparison studies are not available for review at this time. FINDINGS: Visualized portions of lung bases demonstrate small right pleural effusion. There is an infiltrate/atelectasis in the right middle lobe. There is partially visualized opacity/consolidation in the right middle lobe. There are atelectatic changes in the right lower lobe. The heart size is normal. There are coronary calcifications. There is a 5 mm nonspecific low-density lesion in the right lobe of the liver anteriorly difficult to characterize on this exam. No other focal lesions are identified. Normal gallbladder and extrahepatic biliary system. Normal spleen. Normal pancreas. Normal bilateral adrenal glands. There are small cysts in the right kidney. There is a 1.8 cm cyst in the lower pole of the left kidney. Normal visualized stomach. There are nonspecific fluid-filled small bowel loops. There is no evidence of small bowel obstruction. There is fecal retention. The descending colon is not well distended and difficult to evaluate. The appendix is partially visualized and appears unremarkable. There is diffuse atherosclerotic calcification of the abdominal aorta with elongation and tortuosity, but without a demonstrated aneurysm. Normal inferior vena cava. Normal retroperitoneum. There is a right-sided inguinal hernia containing adipose tissue. The osseous structures demonstrate demineralization of the osseous structures. There are multilevel degenerative changes. There is mild anterior wedging of L1 vertebra. There is no demonstrated destructive bony process. CT/Abdomen WITH IV Contrast IMPRESSION: 1. Partially visualized right middle lobe opacity/consolidation. 2. Atelectatic changes in the right lower lobe. 3. Small right pleural effusion. 4. Nonspecific fluid-filled small bowel loops without evidence of bowel obstruction. 5. Small liver lesion which could represent cyst difficult to characterize on this exam. Ultrasound might be of further value. 6. Small bilateral renal cysts. Electronically Signed: Erick Lennon MD at 15:43 EST Tel , Service support , CC: Semaj Page MD; Juan Carlos Plummer MD Rn Unit Manager: Signed PROGRESS Observed: 07/11/2018 Status: COMPLETED Source: [place] 11:20 AM [facility] REPOSITORY HNO ID: [id number] Author: Giana ([facility]) Podlogar Service: (none) Author Type: Nurse Practitioner Type: Progress Notes Filed: 07/11/2018 11:20 AM Note Text: Also let him know calcium is in normal range. Giana URINALYSIS WITH Collected: 07/10/2018 Status: F Source: [facility] 2:22 PM [facility] REPOSITORY TYPE CODE TESTS RESULT OUT OF REFERENCE UNITS RANGE LAB UCOL Yellow Color Yellow LAB [facility] Clear Clarity Clear LAB UGLUC Negative mg/dL Glucose, Urine Negative LAB UBIL Negative Bilirubin, Urine Negative LAB UKET Negative Ketones, Urine Negative LAB USPG 1.005-1.030 Specific [place], Ur 1.014 LAB UHGB Negative Hemoglobin/Blood, Negative Ur LAB UPH 4.5-8.0 pH 7.0 LAB UPROT Negative mg/dL Protein, Urine Negative LAB UUROB Normal Urobilinogen Normal LAB UNITR Negative Nitrites Negative LAB ULKEST Negative Leukest Negative LAB UCOM Comments SEE COMMENT Result Comment: N/A LAB UMCOM Urine SEE Fitz Comment COMMENT Result Comment: N/A LAB UWBC 0-5 /HPF WBC 0-5 LAB URBC 0-3 /HPF RBC 0-3 Performed By: #### UAWMIC #### [facility] [address] [place], [place] [address] PSA, DIAGNOSTIC Collected: 07/10/2018 Status: F Source: [place] 2:18 PM [facility] REPOSITORY TYPE CODE TESTS RESULT OUT OF REFERENCE UNITS RANGE LAB PSA 0.00-2.59 ng/mL PSA, Diagnostic 1.50 Result Comment: Total PSA test methodology used is the Electrochemiluminescence Immunoassay. Performed By: #### PSA, CMP #### [place] [id number] [place] [address] COMP METABOLIC PANEL Collected: 07/10/2018 Status: F Source: [place] 2:18 PM [facility] REPOSITORY TYPE CODE TESTS RESULT OUT OF REFERENCE UNITS RANGE LAB TP 6.3-8.0 g/dL Protein, Total 6.9 LAB ALB 3.9-4.9 g/dL Albumin 3.9 LAB CA 8.5-10.2 mg/dL Calcium, Total 9.4 LAB TBIL 0.2-1.3 mg/dL Bilirubin, Total 0.6 LAB ALKP 38-113 U/L Alkaline High Phosphatase 155 LAB AST 14-40 U/L AST 24 LAB GLU 74-99 mg/dL Glucose 91 Result Comment: The [place] Diabetes Association (ADA) provides guidance for cutoff values for fasting glucose and random glucose. The ADA defines fasting as no caloric intake for at least 8 hours. Fas ting plasma glucose results between 100 to 125 mg/dL indicate increased risk for diabetes (prediabetes). Fasting plasma glucose results greater than or equal to 126 mg/dL meet the criteria for diagnosis of diabetes. In the absence of unequivocal hyperglycemia, results should be confirmed by repeat testing. In a patient with classic symptoms of hyperglycemia or hyperglycemic crisis, random plasma glucose results greater than or equal to 200 mg/dL meet the criteria for diagnosis of diabetes. Reference: Standards of Medical Care in Diabetes 2016, [place] Diabetes Association. Diabetes Care. 2016.39(Suppl 1). LAB BUN 9-24 mg/dL BUN 13 LAB CRET 0.73-1.22 mg/dL Creatinine 0.94 LAB NA 136-144 mmol/L Sodium Low 133 LAB K 3.7-5.1 mmol/L Potassium 4.0 LAB CL 97-105 mmol/L Chloride Low 91 LAB CO2 22-30 mmol/L CO2 26 LAB AGAP 9-18 mmol/L Anion Gap 16 LAB ALT 10-54 U/L ALT 18 LAB GFRAA eGFR- Amer. >60 LAB GFRNAA . eGFR-All Other Races >60 Result Comment: eGFR (Estimated GFR) Units of measure: mL/min/1.73 meters squared eGFR is derived from the reexpressed MDRD Study equation using the following parameters: serum creatinine, age, gender and race. The creatinine assay has been calibrated to be traceable to IDMS. An eGFR <60 mL/min/1.73m2 for >3 months is consistent with chronic kidney disease. Refer to KDOQI guidelines for clinical interpretation. In patients with unstable renal function, e.g. those with acute kidney injury, the eGFR may not accurately reflect actual GFR. Performed By: #### PSA, CMP #### [facility] [address] [place], [place] [address] PROGRESS Observed: 07/10/2018 Status: COMPLETED Source: [place] 1:40 PM [facility] REPOSITORY HNO ID: [id number] Author: Giana ([employer]) Podlogar Service: (none) Author Type: Nurse Practitioner Type: Progress Notes Filed: 07/10/2018 4:42 PM Note Text: 07/10/2018 Patient presents with: Discussion: sodium low, cancer doctor wanted him to see you over diuretic management SUBJECTIVE: This is a 67 year old that is here today for Above Complaints. Had blood work completed on 07/07/2017. Sodium found to be 131, Chloride 90, potassium 3.1, and calcium 7.9- no albumin completed so can not correct for albumin. Patient reports chemo doctor told him to be seen because he is on a diuretic and needed to be addressed. Patient reports he take hydrochlorothiazide for BP control. He reports he finished his last chemo treatment two weeks ago and his sodium and potassium have been a proble since he has been getting treatments. He reports he has had some potassium infusions with chemo due to it being decreased. His reports they also mentioned he may need blood transfusion as well. He was told by chemo physician to take HCTZ just 3 days this week and they have added potassium 20 meq twice daily for 30 days. Denies fatigue, nausea, headaches, SOB, dyspnea, wheezing, chest pain, edema, palpitations, and tremors PAST MEDICAL HISTORY Diagnosis Date - COPD, mild (HCC) 10/26/2005 - COPD, severe (HCC) 10/26/2005 - Depression 01/19/2011 - Essential hypertension 03/31/2015 - Ex-smoker 10/26/2005 Quit 2011. 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 Gage: Left upper back, right upper back. 10/2016 Frontal scalp - Squamous cell lung cancer (HCC) 01/22/[address] Chin ALLERGIES Patient has no known allergies. MEDICATIONS Current Outpatient Prescriptions: metoprolol tartrate, short acting, (LOPRESSOR) 50 mg tablet Take 1 tablet by mouth twice daily. simvastatin (ZOCOR) 40 mg tablet Take 1 tablet by mouth daily at bedtime. hydroCHLOROthiazide (HYDRODIURIL, ESIDRIX) 25 mg tablet Take 1 tablet by mouth once daily. omega-3 fatty acids 1,000 mg cap Take 1 capsule by mouth once daily. No current facility-administered medications for this visit. Medications and allergies reviewed by this provider. SOCIAL HISTORY Social History Marital status: Spouse name: Years of education: Number of children: Social History Main Topics Smoking status: Former Smoker Packs/day: 0.50 Years: 35.00 Types: Cigarettes Quit date: 03/29/2012 Smokeless tobacco: Never Used Alcohol use: Yes Comment: occasionally Drug use: No REVIEW OF SYSTEMS All other reviewed and negative other than HPI. OBJECTIVE: BP 130/60 (BP Site: Left Arm, BP Position: Sitting, BP Cuff Size: Large Adult) Pulse 72 Resp 16 Wt 89.5 kg (197 lb 6.4 oz) BMI 30.01 kg/m? . Vital signs reviewed by this provider. APPEARANCE Well appearing, alert, in no acute distress, well-hydrated, well nourished. HEART RRR with normal S1 and S2, no murmurs, no gallops, no JVD appreciated LUNG clear to auscultation. No wheezes, rhonchi, or rales EXTREMITIES Extremities normal, No deformities, No skin discoloration and No edema ASSESSMENT/PLAN: 1. Essential hypertension - ICD9: 401.9, ICD10: I10 (primary diagnosis) - good control - Discontinue HCTZ - Recommended regular aerobic exercise. - Recommend home blood pressure monitoring, to bring results in on next visit - Goal of BP <130/80 - Recommend home or pharmacy blood pressure monitoring- is going to monitor at home and call if increasing - Recommended no refined sugar, low refined starch, healthy oil intake (olive oil), healthy protein (fish) along the lines of the Mediterranean diet. - LISINOPRIL 10 MG TABLET - follow-up as scheduled with PCP, sooner if needed 2. Hyponatremia - ICD9: 276.1, ICD10: E87.1 - no red flag symptoms at this time - red flag symptoms discussed, verbalizes understanding - will recheck today - stop HCTZ - COMP METABOLIC PANEL - follow-up pending blood work 3. Hypokalemia - ICD9: 276.8, ICD10: E87.6 - will recheck today - if normal may have him stop potassium as I have stopped diuretic - COMP METABOLIC PANEL - follow-up pending blood work 4. Hypocalcemia - ICD9: 275.41, ICD10: E83.51 - unable to correct for calcium on most recent labs- appears he has been decreased in past, however albumins have been low as well and when corrected is within range - COMP METABOLIC PANEL - recheck today with albumin - follow-up pending results Giana Ruiz, FACILITIES SPECIALIST.WEBSITE ADMIN Prescription instructions reviewed with patient as applicable. Patient advised if symptoms do not improve or if symptoms worsen sooner, to contact their primary care physician. Potential red flag symptoms discussed with the patient. Reviewed appropriate action plan to take if red flag symptoms occur. Patient agreeable to treatment plan. CNOV Observed: 07/10/2018 Status: COMPLETED Source: [place] 1:40 PM [facility] REPOSITORY Office Visit (FAMPWS) ANGEL LUIS GAUTAM ([id number]) 1950 M Date Time Provider Department 07/10/18 1:40 PM GIANA RUIZ (TYSHAWN) INEZ During your visit today, we recorded the following information about you: Pulse Respiration Blood pressure Weight 72/minute 16/minute 130/60 89.5 kg Giana Elizondologbennett, FACILITIES SPECIALIST.TYSHAWN 07/10/2018 4:42 PM Signed 07/10/2018 Patient presents with: Discussion: sodium low, cancer doctor wanted him to see you over diuretic management SUBJECTIVE: This is a 67 year old that is here today for Above Complaints. Had blood work completed on 07/07/2017. Sodium found to be 131, Chloride 90, potassium 3.1, and calcium 7.9- no albumin completed so can not correct for albumin. Patient reports chemo doctor told him to be seen because he is on a diuretic and needed to be addressed. Patient reports he take hydrochlorothiazide for BP control. He reports he finished his last chemo treatment two weeks ago and his sodium and potassium have been a proble since he has been getting treatments. He reports he has had some potassium infusions with chemo due to it being decreased. His reports they also mentioned he may need blood transfusion as well. He was told by chemo physician to take HCTZ just 3 days this week and they have added potassium 20 meq twice daily for 30 days. Denies fatigue, nausea, headaches, SOB, dyspnea, wheezing, chest pain, edema, palpitations, and tremors PAST MEDICAL HISTORY Diagnosis Date - COPD, mild (HCC) 10/26/2005 - COPD, severe (HCC) 10/26/2005 - Depression 01/19/2011 - Essential hypertension 03/31/2015 - Ex-smoker 10/26/2005 Quit 2011. 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 Gage: Left upper back, right upper back. 10/2016 Frontal scalp - Squamous cell lung cancer (HCC) 01/22/[address] Chin ALLERGIES Patient has no known allergies. MEDICATIONS Current Outpatient Prescriptions: metoprolol tartrate, short acting, (LOPRESSOR) 50 mg tablet Take 1 tablet by mouth twice daily. simvastatin (ZOCOR) 40 mg tablet Take 1 tablet by mouth daily at bedtime. hydroCHLOROthiazide (HYDRODIURIL, ESIDRIX) 25 mg tablet Take 1 tablet by mouth once daily. omega-3 fatty acids 1,000 mg cap Take 1 capsule by mouth once daily. No current facility-administered medications for this visit. Medications and allergies reviewed by this provider. SOCIAL HISTORY Social History Marital status: Spouse name: Years of education: Number of children: Social History Main Topics Smoking status: Former Smoker Packs/day: 0.50 Years: 35.00 Types: Cigarettes Quit date: 03/29/2012 Smokeless tobacco: Never Used Alcohol use: Yes Comment: occasionally Drug use: No REVIEW OF SYSTEMS All other reviewed and negative other than HPI. OBJECTIVE: BP 130/60 (BP Site: Left Arm, BP Position: Sitting, BP Cuff Size: Large Adult) Pulse 72 Resp 16 Wt 89.5 kg (197 lb 6.4 oz) BMI 30.01 kg/m? . Vital signs reviewed by this provider. APPEARANCE Well appearing, alert, in no acute distress, well- hydrated, well nourished. HEART RRR with normal S1 and S2, no murmurs, no gallops, no JVD appreciated LUNG clear to auscultation. No wheezes, rhonchi, or rales EXTREMITIES Extremities normal, No deformities, No skin discoloration and No edema ASSESSMENT/PLAN: 1. Essential hypertension - ICD9: 401.9, ICD10: I10 (primary diagnosis) - good control - Discontinue HCTZ - Recommended regular aerobic exercise. - Recommend home blood pressure monitoring, to bring results in on next visit - Goal of BP <130/80 - Recommend home or pharmacy blood pressure monitoring- is going to monitor at home and call if increasing - Recommended no refined sugar, low refined starch, healthy oil intake (olive oil), healthy protein (fish) along the lines of the Mediterranean diet. - LISINOPRIL 10 MG TABLET - follow-up as scheduled with PCP, sooner if needed 2. Hyponatremia - ICD9: 276.1, ICD10: E87.1 - no red flag symptoms at this time - red flag symptoms discussed, verbalizes understanding - will recheck today - stop HCTZ - COMP METABOLIC PANEL - follow-up pending blood work 3. Hypokalemia - ICD9: 276.8, ICD10: E87.6 - will recheck today - if normal may have him stop potassium as I have stopped diuretic - COMP METABOLIC PANEL - follow-up pending blood work 4. Hypocalcemia - ICD9: 275.41, ICD10: E83.51 - unable to correct for calcium on most recent labs- appears he has been decreased in past, however albumins have been low as well and when corrected is within range - COMP METABOLIC PANEL - recheck today with albumin - follow-up pending results Giana ElizondologJASMIN guajardo.TYSHAWN Prescription instructions reviewed with patient as applicable. Patient advised if symptoms do not improve or if symptoms worsen sooner, to contact their primary care physician. Potential red flag symptoms discussed with the patient. Reviewed appropriate action plan to take if red flag symptoms occur. Patient agreeable to treatment plan. Giana Ruiz APRN.CNP 07/10/2018 2:06 PM Signed Monitor blood pressure at home inform us if is increasing Referring Provider: ER STAFF [[id number]] Allergies As of Date: 07/10/2018 (No Known Allergies) Date Reviewed: 07/10/2018 Reviewed by: Giana (Tyshawn) Podlogar - Fully Assessed Reason for Visit: Discussion [813] Cmt: sodium low, cancer doctor wanted him to see you over diuretic management Primary Visit Diagnosis:Essential hypertension [I10] Other Visit Diagnoses:Hyponatremia [E87.1] Hypokalemia [E87.6] Hypocalcemia [E83.51] Order(s):lisinopril (ZESTRIL, PRINIVIL) 10 mg tabletTake 1 tablet by mouth once daily.Disp: 30 tabletRfl: 1 COMP METABOLIC PANEL [SQCMP] Order #: [id number] FUTURE potassium chloride ER (K-DUR, KLOR-CON) 20 mEq tabletTake 1 tablet by mouth twice daily. For 30 daysDisp: Rfl: Prescriptions as of 07/10/2018 Sig: METOPROLOL TARTRATE 50 MG TAB* Take 1 tablet by mouth twice * SIMVASTATIN 40 MG TABLET Take 1 tablet by mouth daily * OMEGA-3 FATTY ACIDS 1,000 MG * Take 1 capsule by mouth once * LISINOPRIL 10 MG TABLET Take 1 tablet by mouth once d* POTASSIUM CHLORIDE ER 20 MEQ * Take 1 tablet by mouth twice * Problem List As Of Date 07/10/2018 Noted Resolved Ex-smoker [Z87.891] INVALID FOR* More... COPD, severe (HCC) [J44.9] INVALID FOR* More... Prostate cancer screening [Z12.5] INVALID FOR* Mixed hyperlipidemia [E78.2] INVALID FOR* Essential hypertension [I10] INVALID FOR* More... Skin cancer, basal cell [C44.91] INVALID FOR* More... Disorder of prostate [N42.9] INVALID FOR* Well adult exam [Z00.00] INVALID FOR* More... Neoplasm of uncertain behavior of skin of tempo*INVALID FOR* Skin exam, screening for cancer [Z12.83] INVALID FOR* Colon cancer screening [Z12.11] INVALID FOR* More... Bilateral leg edema [R60.0] INVALID FOR* More... Medicare annual wellness visit, subsequent [Z00*INVALID FOR* More... Squamous cell lung cancer (HCC) [C34.90] INVALID FOR* More... 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) [F*INVALID FOR* Other instructions from your clinician: Monitor blood pressure at home inform us if is increasing Prescriptions ordered this encounter Disp Refills Start End LISINOPRIL 10 MG TABLET 30 t* 1 07/10/2018 Route: ORAL Sig: Take 1 tablet by mouth once daily. POTASSIUM CHLORIDE ER 20 MEQ TABLET,* 07/10/2018 Class: Med Update Route: ORAL Sig: Take 1 tablet by mouth twice daily. For 30 days Medications Discontinued During This Encounter hydroCHLOROthiazide (HYDRODIURIL, ES* 90 t* 1 02/05/2018 07/10/2018 Route: ORAL Sig: Take 1 tablet by mouth once daily. Disc: Changing Therapy/Dosage Form Follow-up and Disposition History Recorded Encounter Status:Closed by LUANLOGGIANA GUAJARDO CNP on 07/10/18 PULMONARY VISIT REPORT Observed: 07/10/2018 Status: F Source: [place] 6:24 AM [facility] REPOSITORY [facility] [address] [place] [address] OFFICE VISIT Date of Service: 07/09/18 MR#: [id number] Acct: [id number] Name: ANGEL LUIS GAUTAM Rep #: [id number] : 1950 Provider: Antonio Chin D.O. Age/Sex: 67/M Location: [facility] [place] Status: Signed Assessment AND Plan 1. Stage 4 very severe COPD by GOLD classification J44.9 Plan The patient has advanced stage COPD and is currently prescribed Stiolto and as needed albuterol. On review of the patient's last pulmonary function studies, he did have a rather robust response to bronchodilators. 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 Given how frequently he is utilizing his rescue inhaler on a daily basis, in conjunction with his complaints of a cough, I recommended that we transition him Trelegy for his maintenance inhaler. Patient was provided with samples today of the aforementioned medication and instructed on use. My hope is that this medication change will decrease his need for his rescue inhaler in the future. The patient can continue to utilize albuterol on an as-needed basis. He has been advised to call this office with any worsening in his breathing quality. I will see the patient back for a follow-up office visit in approximately 3 months. 2. Non-small cell lung cancer C34.90 Plan Continue medical management and follow-up with oncology as scheduled. 3. 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 Plan Detail Follow Up 3 Months (DMB) HPI HPI Comments Details: The patient is a 67-year-old male who presents to the clinic today for a routine scheduled follow-up office visit. The patient's is present at today's office visit. If you recall, the patient was initially admitted to the hospital in November 2017 with complaints of shortness of breath, cough and hemoptysis. The patient has a smoking history that includes 2-1/2 packs per day 20 years, having quit completely in 2009. 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 During the patient's hospitalization, a CT chest with contrast was obtained which revealed an obstructing mass encompassing the right middle lobe bronchus and measuring 3.5 x 3 cm in size. The patient was evaluated by pulmonary medicine, given concerns for potential malignancy. Options for moving forward for diagnostic purposes was discussed with the patient. Following a discussion with Dr. Richey, the patient agreed to proceed with airway evaluation by EBUS. On January 17, 2018, the patient underwent bronchoscopy with endoscopic endobronchial ultrasound, transbronchial needle aspiration, endobronchial biopsies and bronchial washings. On airway evaluation, the patient was noted to have a fungating obstructing mass occupying the orifice of the right middle and right lower lobe bronchi. The lesion could be traversed with the bronchoscope. While no significant left-sided adenopathy was identified, a sizable subcarinal lymph node was identified with ultrasound and subsequently biopsied. That lymph node was negative for malignancy. Transbronchial needle aspiration was performed of the right hilar lesion and endobronchial biopsies were obtained from the fungating mass aforementioned. The patient's transbronchial needle aspiration of the right infrahilar mass and endobronchial biopsies were all positive for non-small cell carcinoma, favor squamous cell carcinoma. Pulmonary function studies completed in January 2018 revealed evidence of a partially reversible very severe large airways obstructive ventilatory defect with associated air trapping and symmetric reduction in diffusing capacity. A 6-minute walk test was also completed at that time and revealed no significant exertional oxygen desaturation. Today, the patient reports overall stability in his breathing quality. He is currently compliant with the use of Stiolto as needed albuterol. However, he reports that he is utilizing his Ventolin rescue inhaler on average 3 times per day. He does report the presence of a cough which is productive of clear sputum along with baseline exertional dyspnea. He denies any chest tightness or wheezing. He is currently scheduled to undergo a restaging CT scan in mid July. He is currently being followed by Dr. Plummer of oncology. He denies fevers, chills or night sweats. He denies chest pain, dizziness or lightheadedness. Intake Vital Signs07/09/18 Height 5 ft 9 in 07/09/18 Weight: 200 lb Intake Visit Reasons: 3 M FU Accompanied by: Allergies No Known Allergies Allergy (Verified 07/03/18 09:18) Medications Hydrochlorothiazide [Hctz] 25 mg PO DAILY 06/16/17 [History Confirmed 07/03/18] Metoprolol Tartrate [Lopressor (beta shorty)] 50 mg PO BID 06/16/17 [History Confirmed 07/03/18] Simvastatin [Zocor] 40 mg PO QHS 06/16/17 [History Confirmed 07/03/18] [place]-3 Fatty Acids/Fish Oil [Fish Oil 1,000 mg Capsule] 1 ea PO DAILY 12/11/17 [History Confirmed 07/03/18] Albuterol IH (ProAir) [Proair Hfa] 1 puff INHALATION Q4H PRN PRN #1 inhaler 12/12/17 [Rx Confirmed 07/03/18] Guaifenesin [Mucinex] 1,200 mg PO BID 01/14/18 [History Confirmed 07/03/18] Codeine Phosphate/Guaifenesin [Virtussin AC Liquid] 10 ml PO PRN PRN 03/06/18 [History Confirmed 07/03/18] Lidocaine/Prilocaine [Lidocaine-Prilocaine Cream] 30 gm TP DAILY PRN PRN #1 cream..g. 03/10/18 [Rx Confirmed 07/03/18] Ondansetron [Zofran Odt] 4 mg PO Q8H PRN PRN 10 Days #30 tab.rapdis 03/10/18 [Rx Confirmed 07/03/18] Oxycodone HCl/Acetaminophen [Percocet 5/325] 1 - 2 tab PO Q4H PRN PRN 5 Days #30 tab 03/18/18 [Rx Confirmed 07/03/18] Omeprazole [Prilosec] 20 mg PO DAILY #30 cap 04/02/18 [Rx Confirmed 07/03/18] albuterol sulfate HFA 90 mcg/actuation aerosol inhaler 2 puff INHALATION Q4H PRN #3 ea 04/08/18 [Rx Confirmed 07/03/18] Magic Mouth Wash 15 ml PO Q6H PRN PRN #240 ml 04/23/18 [Rx Confirmed 07/03/18] tiotropium 2.5 mcg-olodaterol 2.5 mcg/actuation mist for inhalation 2 puff INHALATION Q24H #3 device 05/28/18 [Rx Confirmed 07/03/18] Ondansetron [Zofran Odt] 4 mg PO Q8H PRN PRN 10 Days #30 tab 07/03/18 [Rx] Potassium Chloride [K-Dur] 20 meq PO BID 30 Days #60 tab 07/07/18 [Rx] [facility] Medical History Primary cancer of right middle lobe of lung (Acute) Stage 4 very severe COPD by GOLD classification (Chronic) Tobacco abuse, in remission (Chronic) Educational circumstance (Acute) Hypertension (Chronic) Hyperlipidemia (Chronic) Hemoptysis (Acute) Pneumonia (Acute) Surgical History H/O hernia repair (Resolved) EBUS (Resolved) Family History Father Myocardial infarction Hypertension Mother Pneumonia Social History Smoking Status: Former smoker quit date: 07/01/11 pack-years: 80 alcohol intake: current alcohol intake frequency: holidays/special occasions only substance use type: does not use Review of Systems Const CONSTITUTIONAL: Positive fatigue; negative anorexia, body ache, chills, daytime sleepiness, fever(s), night sweats, oral thrush, stops breathing during sleep, weight loss, sleeping in chair, weight loss, weight gain, frequent colds, seasonal allergies, other, headache(s) or orthopnea EETM Ear Nose Throat Mouth: Positive hearing normal and post nasal drip; negative hard of hearing, hoarseness, dry mouth in morning, change in vision, itchy eyes, eye pain, swallowing Difficulty, ear pain, nose bleed, headache(s), mouth pain, nasal congestion, nasal discharge, sinus pain, sinus pressure, sore throat or other Cardio Cardiovascular: Negative chest pain, chest pain at rest, chest pain with activity, irregular heart rhythm, edema, shortness of breath when lying down, palpitations, murmur or other Resp Respiratory: Positive as per HPI, shortness of breath shortness of breath: Positive with activity and cough cough: Positive productive color: Positive clear; negative pain with cough, wheezing, chest congestion, chest tightness, pain on inspiration, inhalers, increase use of rescue inhalers, snoring, apnea or other Gastro Gastrointestional: Negative bloody stools, change in appetite, difficulty swallowing, reflux, hematemesis, melena stool, loose stool, constipation or other Genitourinary: Negative blood in urine, nocturia, pain with urination or other Musc Musculoskeletal: Negative body pain, back pain, neck pain or other Skin/Breast Skin/Breast: Negative dry skin, itching, rash, unusual bruising, breast lump or other Neuro Neurological: Negative restless legs, confusion, weakness or other Psych Psychocological: Negative abnormal sleep pattern, anxiety, thoughts of hurting self/others, hopelessness or other Lymph Lymphatic: Negative easy bleeding, easy bruising, swollen lymph nodes or other Exam Const Constitutional: Positive conversant, cooperative, in no acute respiratory distress, well developed, well nourished and good hygiene Head Head: Positive normocephalic and atraumatic; negative cyanosis of lips/distal nose Eyes Eye: Positive clear conjunctiva; negative nystagmus or scleral abnormality Ears Ear: Positive hearing normal and external ears normal; negative hard of hearing Nose Nose: Positive external nose normal; negative epistaxis Mouth Mouth: Positive oral mucosae normal, posterior oropharynx is adequate and post nasal drip; negative no lesions Mallampati Score: II: Mallampati Score Neck Neck: Positive normal visual inspection and trachea midline; negative lymphadenopathy Chest Wall Chest: Positive symmetric chest movement Normal AP diameter. Resp lung sounds: Positive diminished diminished: Positive bialteral; negative wheezes, rhonchi or rales Cardio Cardiac: Positive regular rate, regular rhythm, S1 normal and S2 normal; negative rub, gallop or murmur GI GI: Positive normal bowel sounds Soft without distention Genitourinary: Positive deferred Musc Musculoskeletal: Positive steady gait Skin Pulmonary Skin Exam: Positive intact; negative lesion, ulcers, dermal atrophy or rash Pulses Pulse: Yes Pedal pulses present: Extremities Extremities: No clubbing, No cyanosis, No edema Neuro Neurologic: Yes conversant Lymph Lymphatic: No lymphadenopathy Psych Appearance: Positive grossly normal Mental Status: Positive mental status grossly normal Mood: Positive congruent mood Affect: Positive normal affect Coding Level of Care Code Off vis,est,level 3 Diagnoses Stage 4 very severe COPD by GOLD classification J44.9 Non-small cell lung cancer C34.90 Nicotine dependence, cigarettes, 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 TYPE CODE TESTS RESULT OUT OF RANGE REFERENCE UNITS LAB L501.0100 74-106 mg/dL Normal GLU 82 Result Comment: Please note revised GLUCOSE reference range effective 2017. LAB L501.1000 7-18 mg/dL Normal BUN 11 LAB L501.1100 0.70-1.30 mg/dL Normal CREAT,SERUM 0.91 Result Comment: The validity of the calculated GFR AND GFRAA in patients over 70 years has not been determined. Clinical correlation is essential. LAB L501.1110 >60 mL/min Normal EST GFR 88 Result Comment: Non- GFR Calc LAB L501.1115 >60 mL/min Normal EST GFR - AA 106 Result Comment: GFR Calc LAB L501.1255 ml/min Normal Estimated CRCL 78.77 LAB L501.1300 10-20 RATIO Normal BUN/CRE 12.0 LAB L501.2200 8.5-10 mg/dL Low .1 CA 7.9 LAB L501.5300 136-14 mmol/L Low 5 NA 131 LAB L501.5600 3.5-5. mmol/L Low 1 K 3.1 LAB L501.5900 98-107 mmol/L Low CL 90 LAB L501.6100 21.0-3 mmol/L Normal 2.0 CO2 31.0 LAB L501.6200 5-15 Normal GAP 10 Performed By: #### L500.2500 #### [facility] [address] [place], [address] ONCOLOGY VISIT REPORT Observed: 07/03/2018 Status: F Source: [place] 10:16 AM [facility] REPOSITORY [facility] [address] [place] [address] OFFICE VISIT Date of Service: 07/03/18 0935 MR#: [id number] Acct: [id number] Name: ANGEL LUIS GAUTAM Rep #: [id number] : 1950 From: Cecy PALACIOS Age/Sex: 67/M Location: [facility]MD Status: Signed Subjective - Date of Service Date of Service:: 07/03/18 - Chief Complaint Lung cancer on treatment - History of Present Illness Patient is a 67-year-old gentleman ex-smoker who started smoking around age 15 averaging 2-1/2-3 packs per day and quit in 2011 and has a baseline COPD dyslipidemia and hypertension. He was in his usual state of health until May 2017 when he experienced an episode of hemoptysis , chest x-ray showed a right middle lobe infiltrate and he was treated for pneumonia and improved. However November 2017 experienced recurrence of hemoptysis in addition to worsening dyspnea and December 11, 2017 CT scan of the chest showed a right middle lobe mass associated with complete atelectasis of the right middle lobe. January 17, 2018 bronchoscopy with EBUS: FINDINGS: The visualized oropharynx appears normal. The vocal cords appeared normal and moved normally with breathing. The subglottic space is normal. The trachea was of normal caliber. The courtney is sharp. The tracheal bronchial trees of the left and right lungs were examined to at least the first subsegmental level. There was scant mucoid secretions noted in the left lower lobe. Within the right tracheal bronchial tree, there was a fungating obstructing mass occupying the orifice of the right middle lobe and right lower lobe. Only a slitlike portion of the right lower lobe orifice could be visualized. The lesion could not be traversed with the bronchoscope. Once the airway inspection was completed, the standard bronchoscope was withdrawn and a convex probe endobronchial ultrasound (EBUS) bronchoscope was inserted through the same route. The endobronchial ultrasound endoscope was then utilized to systematically examine the superior/inferior mediastinal and hilar lymph nodes to assist with fine-needle aspiration. No significant left-sided hilar lymphadenopathy was identified. 2 small lymph nodes were identified at lymph node station #7 (subcarina) and subsequently biopsied In total, 6 transbronchial needle aspirations were completed at 2 different lymph node stations. Transbronchial needle aspiration was performed at lymph node station #7(subcarina) using an Olympus EBUS-TBNA 19-gauge needle and sent for routine cytology. The procedure was guided by ultrasound. 3 samples were obtained. Transbronchial needle aspiration was then performed of the right-sided hilar lesion which encompassed the right middle lobe and right lower lobe takeoff, using an Olympus EBUS-TBNA 19-gauge needle and sent for routine cytology. The procedure was guided by ultrasound. 3 samples were obtained. Rapid on-site evaluation (ELYSIA): Preliminary cytology was suggestive of non-small cell carcinoma. Final pathology results are pending. Following this, the EBUS endoscope was subsequently withdrawn from the patient's airway through the LMA. A conventional bronchoscope was then reinserted into the patient's airway, at which time, endobronchial biopsies were obtained from the right middle lobe orifice, where the fungating mass was most pronounced. A total of 3 endobronchial forceps biopsies were completed. Bronchial washing was completed in the bronchus intermedius. Ice cold saline was infused into the region to facilitate achieving hemostasis. All retained secretions and/or blood was cleared from the patient's airway. The bronchoscope was then withdrawn without complication. The patient was then transferred to the PACU, where they recovered in the usual fashion. IMPRESSION: 1. Large right-sided obstructing lung mass. The fungating endobronchial portions of this lesion obstructed the orifice of the right middle and right lower lobes. The lesion was not able to be traversed by the bronchoscope. 2. Subcarinal lymphadenopathy status post transbronchial needle aspiration 3. Mucoid secretions within the left lower lobe. 4. No significant left-sided hilar adenopathy was identified. Pathology: MICROSCOPIC DIAGNOSIS RML, endobronchial biopsy: Non-small cell carcinoma, favor squamous cell carcinoma DIAGNOSIS CYTOLOGY A. EBUS aspiration #1, site 7: Negative for malignant cells. Adequate for evaluation, lymphocytes present. B. EBUS aspiration #2, site 7: Negative for malignant cells. Mostly blood. A few respiratory epithelial cells. C. EBUS aspiration #3, site 7: Negative for malignant cells. Adequate for evaluation lymphocytes present. D. EBUS aspiration #4, hilar mass: Malignant cells present derived from non-small cell carcinoma. E. EBUS aspiration #5, hilar mass: Malignant cells present derived from non-small cell carcinoma. F. EBUS aspiration #6, hilar mass: Malignant cells present derived from non-small cell carcinoma. G. Site 7, TBNA, fluid (cytospin and cell block): Negative for metastatic carcinoma. See cytology study and comment. H. Hilar mass, TBNA (cytospin and cell block): Malignant cells present derived from non-small cell carcinoma, favor squamous cell carcinoma. See comment. I. RML, washing (cytospin and cell block): A few atypical squamous epithelial cells are noted. ANTIBODY / CLONE RESULT Block H AE1-3 (AE1/AE3/PCK26) positive, focal CK7 (OV-TL12/30) negative CK8 ([id number]) positive, focal CK20 (KS20.8) negative TTF-1 (8G7G3/1) negative Napsin A (Rabbit Polyclonal) negative HepPar (OCh1E5) negative RCC (PN-15) negative PSA (ER-PR8) negative CK5-6 (D5 AND 1684) positive P40 (BC28) positive PET CT January 27, 2018: IMPRESSION: 1. ABNORMAL EXAMINATION INDICATIVE OF MALIGNANT VIABLE NEOPLASM. 2. Increased glucose concentration identified in the right thoracic perihilum, infrahilar region fulfills quantitative criteria for viable neoplasm. (Rajiv et al, Journal of Clinical Oncology 16:2142, 1998). 3. Subtle increased glucose concentration observed in the right lower lateral hemithorax pulmonary parenchyma corresponding to apparent atelectatic change likely represents activated leukocytes associated with a localized inflammatory process-obstructive pneumonitis. 4. The increase in glucose concentration observed in the descending thoracic, as well as abdominal aorta is commensurate with activated leukocytes associated with atherosclerotic plaque formation. (Michael et al, Clinical Nuclear Medicine 29:93, 2004). 5. Asymmetric increased glucose concentration visualized in the left diaphragmatic crura is most consistent with a component muscle tension artifact. Brain MRI January 29, 2018: No evidence of metastases PFTs January 2018: INTERPRETATION: Forced expiration spirometry demonstrates the presence of a very severe large airways obstructive ventilatory defect. There was a significant response to aerosolized bronchodilators. Spirograms are of good quality and do not plateau indicating slow emptying of the lungs. Body plethysmography was performed and reveals an elevated RV to 232% of predicted, indicative of underlying air trapping. Diffusing capacity by single breath CO severely reduced at 38% of predicted. IMPRESSION: These pulmonary function studies demonstrate the presence of a partially reversible very severe large airways obstructive ventilatory defect with associated air trapping and symmetric reduction in diffusing capacity. March 04, 2018: Surgical consultation at [facility] found the patient a poor surgical candidate due to insufficient pulmonary reserve. March 27, 2018: No pleural effusion noted, diagnostic thoracocentesis was negative for malignancy. Treatment: Concomitant chemo (weekly carbotaxol X5) with radiation March 19, 2018-April 15, 2018. Consolidation chemo Taxol/Carboplatin 05/27/18- 06/25/18 (Cycle 2 delayed by 1 week d/t respiratory infection and thrombocytopenia) - Interval History The patient presenting to clinic accompanied by spouse for toxicity assessment. Received second and final dose of consolidation on 06/25/18. Concerns today include constipation. States LBM 07/01/18. Taking Colace and Miralax and states I think it's turning around. Now able to pass gas. Experienced bone ache r/t Neulasta x 4 days, less severe but lasted longer. Denies headaches, CP, SOB, CP, abd pain pain, swelling pain of his extremities and numbness/tingling. Nausea intermittent, mild required 3 doses of Zofran. Did not result in any emesis. Appetite fair but improving, PO fluid intake likely adequate. - Past Medical/Social History Past Medical History Cancer: Lung cancer Other Cancer History: BCC MULTIPLE Social History Social History: No changes Smoking Status Former smoker Review of Systems Constitutional:: Reports: Weakness, Fatigue. Denies: Fever, Sweats, Weight loss, Appetite change, Chills Cardiovascular:: Denies: Chest pain, Palpitations, Dyspnea on exertion, Orthopnea, PND, Shortness of breath Respiratory: Denies: Cough, Hemoptysis, Shortness of Breath, Wheezing Gastrointestinal:: Reports: Nausea - see HPI. Denies: Abdominal pain, Vomiting, Diarrhea, Constipation, Hematochezia Genitourinary: Denies: Dysuria, Hematuria, 15, Flank pain Musculoskeletal:: Denies: Back pain, Myalgia, Arthralgia Skin: Denies: Rash, Skin Changes, Wounds Neurological:: Reports: Numbness - feet bilat, improving. Denies: Headache, Dizziness, Tingling, Visual changes, Tinnitus, Hearing loss Psychiatric: Denies: Anxiety, Depression, Homicidal Ideations, Suicidal Ideations Vital Signs Height 5 ft 9 in Weight: 197 lb 3.2 oz Weight in Pounds 197.2 lbs BMI 29.9 Pulse Ox 98 - Physical Exam General: Alert, Oriented x3, No apparent distress HEENT: Atraumatic, PERRLA, EOMI, Normocephalic, - - wears glasses Oropharynx:: Negative for: Dry mucosa, Ulcerated lesions Neck:: Supple, Trachea midline. Negative for: JVD, bilateral Cardiac:: Regular rate, Regular rhythm, Normal S1, Normal S2. Negative for: Murmur Lungs: Clear to auscultation, Excusion symmetrical. Negative for: Rhonchi, Wheezes Abdomen:: Bowel sounds x 4, Soft, Non-tender, Non-distended. Negative for: Hepatosplenomegaly Extremities:: Negative for: Cyanosis, Edema Neurological: Neuro grossly intact Skin:: - - Port right upper chest accessed with gripper covered with DSD. Negative for: Lesions, Rash, Petechiae, Ecchymosis Psychiatric:: Appropriate affect, Euthymic Lymphatics:: Negative for: Cervical lymphadenopathy, Supraclavicular lymphadenopathy, Axillary lymphadenopathy Laboratory Data: Laboratory Tests WBC 4.2 L (4.4-11.0) K/mm3 RBC 3.06 L (4.6-6.2) M/mm3 Diagnostic Data: Diagnostic Data PET, CT Tumor Imaging 01/27/18 12:45 IMPRESSION: 1. ABNORMAL EXAMINATION INDICATIVE OF MALIGNANT VIABLE NEOPLASM. 2. Increased glucose concentration identified in the right thoracic perihilum, infrahilar region fulfills quantitative criteria for viable neoplasm. (Rajiv et al, Journal of Clinical Oncology 16:2142, 1998). 3. Subtle increased glucose concentration observed in the right lower lateral hemithorax pulmonary parenchyma corresponding to apparent atelectatic change likely represents activated leukocytes associated with a localized inflammatory process-obstructive pneumonitis. 4. The increase in glucose concentration observed in the descending thoracic, as well as abdominal aorta is commensurate with activated leukocytes associated with atherosclerotic plaque formation. (Handorita et al, Clinical Nuclear Medicine 29:93, 2004). 5. Asymmetric increased glucose concentration visualized in the left diaphragmatic crura is most consistent with a component muscle tension artifact. Electronic Signature Keith Patel D.O. 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 Clinical and radiologic staging is consistent with localized disease most likely IIIA (T4, Nx, M0) but patient not a surgical candidate due to poor pulmonary reserve. Started combined chemoradiation March 19, 2018. Received 5 weekly doses of carbo taxol between March 19 - April 15, 2018. A new right pleural effusion was noted March 25, underwent a diagnostic tap and cytology is negative. Comorbid conditions: COPD, hypertension and dyslipidemia. Plan: #1 Received cycle 1/2 of carbo Taxol on 05/27/18 given at 3 weeks intervals with growth factor support. Cycle 2 delayed d/t respiratory infection, administered on 06/25/18. Overall tolerated well with the exception of mild GI toxicity- now resolved and grade 1 neuropathy involving feet bilat. CBC reviewed shows, WBC 4.2, Hgb 9.5 and platelets 84,000. #2 Reassessment of disease status with imaging after completion of therapy phase (July 2018)- CT C/A scheduled for 07/18/18. #3 We will assess for consolidation therapy with Durvalumab (anti-PDL 1 monoclonal antibody immune therapy) after above (upon return from a planned vacation in [place] August 2018). #4 Electrolyte aberrancies - K 3 today, Na 130, Cl 91. Recommended we modify administration of Hctz temporarily. Patient is reluctant, stating the last time he experienced moderate swelling of BLE. At minimum, advised him to hold tomorrow's dose (as he has already taken 25 mg Hctz this am) Orders placed for IVPB in infusion suite today. Repeat BMP on Saturday07/07/18. RTC on 07/24/18 as planned to review CT images with Dr. Plummer. Cecy Eng, MSN, BIOLOGICAL SCIENCE TECHNICIAN FISH-C, AOCNP Cecy Eng, MSN, BIOLOGICAL SCIENCE TECHNICIAN FISH-C, AOCNP Medications: Prescriptions This Visit Medication Instructions Recorded Primary Care Provider: Semaj Page MD Referring Provider: Antonio Chin, - Problem List (1) Primary cancer of right middle lobe of lung Status: Acute (2) Electrolyte imbalance Status: Acute 07/03/18 1016 <Electronically signed by Cecy Eng DIE CUTTER OPERATOR-C> Date Cecy Velasquez DIE CUTTER OPERATOR-C Cosigner Signature: Date (if applicable) CC: CBC W/DIFF, AUTOMATED Collected: 07/03/2018 Status: F Source: [place] 8:59 AM [facility] REPOSITORY Order Comment: Reason for Laboratory Test . TYPE CODE TESTS RESULT OUT OF RANGE REFERENCE UNITS LAB L100.1000 4.4-11.0 K/mm3 Low WBC 4.2 LAB L100.1200 4.6-6.2 M/mm3 Low RBC 3.06 LAB L100.1300 13.0-16.5 g/dl Low HGB 9.5 LAB L100.1400 40-54 % Low HCT 28.4 LAB L100.1500 80-94 fL Normal MCV 92.8 LAB L100.1600 27.0-32.0 pg Normal MCH 31.0 LAB L100.1700 32-36 g/gl Normal MCHC 33.5 LAB L100.1810 11.6-14.6 % High RDW CV 17.4 LAB L100.1820 35.1-43.9 fl High RDW SD 59.3 LAB L100.1900 150-450 K/mm3 Low PLT 84 LAB L100.2000 6.2-12.0 fl Normal MPV 9.6 LAB L100.2100 47-70 % Normal NEUT% 54.4 LAB L100.2200 19-41 % Normal LY% 22.4 LAB L100.2300 0-10 % High MONO% 21.5 LAB L100.2400 0-5 % Normal EO% 1.0 LAB L100.2500 0-1 % Normal BASO% 0.5 LAB L100.2550 0.0-0.9 % Normal IM GRAN % 0.200 Result Comment: IG% - Immature Granulocytes (promyelocytes, myelocytes and metamyelocytes) > 1% indicates that a LEFT SHIFT is Present. LAB L100.2620 2.0-7.7 X10 3/uL Normal Absolute Neut 2.3 LAB L100.2720 0.83-4.51 X10 3/ul Normal Absolute Lymph 0.94 LAB L100.4500 Normal SMEAR COMMENT SCANNED Result Comment: RARE BANDS SEEN LAB L100.4900 Normal DOHLE BODIES RARE Performed By: #### L100.0100 #### [facility] [address] [place], [address] COMPREHENSIVE METABOLIC Collected: 07/03/2018 Status: F Source: [place] [facility] 8:59 AM [facility] REPOSITORY Order Comment: Reason for Laboratory Test . TYPE CODE TESTS RESULT OUT OF RANGE REFERENCE UNITS LAB L501.0100 74-106 mg/dL High GLU 111 Result Comment: Fasting Glucose result from 100 to 125 mg/dL suggests IMPAIRED HOMEOSTASIS per A.D.A. criteria. Please note revised GLUCOSE reference range effective 2017. LAB L501.1000 7-18 mg/dL High BUN 20 LAB L501.1100 0.70-1.30 mg/dL Normal CREAT,SERUM 1.07 Result Comment: The validity of the calculated GFR AND GFRAA in patients over 70 years has not been determined. Clinical correlation is essential. LAB L501.1110 >60 mL/min Normal EST GFR 73 Result Comment: Non- GFR Calc LAB L501.1115 >60 mL/min Normal EST GFR - AA 89 Result Comment: GFR Calc LAB L501.1255 ml/min Normal Estimated CRCL 66.99 LAB L501.1300 10-20 RATIO Normal BUN/CRE 18.7 LAB L501.1500 6.4-8. g/dL Normal 2 T PROT 7.1 LAB L501.1800 3.2-5. g/dL Normal 0 ALB 3.4 LAB L501.1950 2.2-4. g/dL Normal 2 GLOB 3.7 LAB L501.2000 0.9-2. RATIO Normal 4 A/G 0.9 LAB L501.2200 8.5-10 mg/dL Low .1 CA 8.3 LAB L501.4100 15-37 U/L Normal AST 19 LAB L501.4305 45-117 U/L High ALK P 161 LAB L501.4405 16-61 U/L Normal ALT 23 LAB L501.4600 0.20-1 mg/dL Normal .00 T BILI 0.60 LAB L501.5300 136-14 mmol/L Low 5 NA 130 LAB L501.5600 3.5-5. mmol/L Low 1 K 3.0 LAB L501.5900 98-107 mmol/L Low CL 91 LAB L501.6100 21.0-3 mmol/L Normal 2.0 CO2 30.0 LAB L501.6200 5-15 Normal GAP 9 Performed By: #### L500.4050 #### [facility] [address] [place], [address] ONCOLOGY VISIT REPORT Observed: 06/25/2018 Status: F Source: [place] 10:51 AM [facility] REPOSITORY [facility] [address] [place] [address] OFFICE VISIT Date of Service: 06/25/18 1015 MR#: [id number] Acct: [id number] Name: ANGEL LUIS GAUTAM Rep #: [id number] : 1950 From: Cecy PALACIOS Age/Sex: 67/M Location: ONC Status: Signed Subjective - Date of Service Date of Service:: 06/25/18 - Chief Complaint Lung cancer on treatment - History of Present Illness Patient is a 67-year-old gentleman ex-smoker who started smoking around age 15 averaging 2-1/2-3 packs per day and quit in 2011 and has a baseline COPD dyslipidemia and hypertension. He was in his usual state of health until May 2017 when he experienced an episode of hemoptysis , chest x-ray showed a right middle lobe infiltrate and he was treated for pneumonia and improved. However November 2017 experienced recurrence of hemoptysis in addition to worsening dyspnea and December 11, 2017 CT scan of the chest showed a right middle lobe mass associated with complete atelectasis of the right middle lobe. January 17, 2018 bronchoscopy with EBUS: FINDINGS: The visualized oropharynx appears normal. The vocal cords appeared normal and moved normally with breathing. The subglottic space is normal. The trachea was of normal caliber. The courtney is sharp. The tracheal bronchial trees of the left and right lungs were examined to at least the first subsegmental level. There was scant mucoid secretions noted in the left lower lobe. Within the right tracheal bronchial tree, there was a fungating obstructing mass occupying the orifice of the right middle lobe and right lower lobe. Only a slitlike portion of the right lower lobe orifice could be visualized. The lesion could not be traversed with the bronchoscope. Once the airway inspection was completed, the standard bronchoscope was withdrawn and a convex probe endobronchial ultrasound (EBUS) bronchoscope was inserted through the same route. The endobronchial ultrasound endoscope was then utilized to systematically examine the superior/inferior mediastinal and hilar lymph nodes to assist with fine-needle aspiration. No significant left-sided hilar lymphadenopathy was identified. 2 small lymph nodes were identified at lymph node station #7 (subcarina) and subsequently biopsied In total, 6 transbronchial needle aspirations were completed at 2 different lymph node stations. Transbronchial needle aspiration was performed at lymph node station #7(subcarina) using an Olympus EBUS-TBNA 19-gauge needle and sent for routine cytology. The procedure was guided by ultrasound. 3 samples were obtained. Transbronchial needle aspiration was then performed of the right-sided hilar lesion which encompassed the right middle lobe and right lower lobe takeoff, using an Olympus EBUS-TBNA 19-gauge needle and sent for routine cytology. The procedure was guided by ultrasound. 3 samples were obtained. Rapid on-site evaluation (ELYSIA): Preliminary cytology was suggestive of non-small cell carcinoma. Final pathology results are pending. Following this, the EBUS endoscope was subsequently withdrawn from the patient's airway through the LMA. A conventional bronchoscope was then reinserted into the patient's airway, at which time, endobronchial biopsies were obtained from the right middle lobe orifice, where the fungating mass was most pronounced. A total of 3 endobronchial forceps biopsies were completed. Bronchial washing was completed in the bronchus intermedius. Ice cold saline was infused into the region to facilitate achieving hemostasis. All retained secretions and/or blood was cleared from the patient's airway. The bronchoscope was then withdrawn without complication. The patient was then transferred to the PACU, where they recovered in the usual fashion. IMPRESSION: 1. Large right-sided obstructing lung mass. The fungating endobronchial portions of this lesion obstructed the orifice of the right middle and right lower lobes. The lesion was not able to be traversed by the bronchoscope. 2. Subcarinal lymphadenopathy status post transbronchial needle aspiration 3. Mucoid secretions within the left lower lobe. 4. No significant left-sided hilar adenopathy was identified. Pathology: MICROSCOPIC DIAGNOSIS RML, endobronchial biopsy: Non-small cell carcinoma, favor squamous cell carcinoma DIAGNOSIS CYTOLOGY A. EBUS aspiration #1, site 7: Negative for malignant cells. Adequate for evaluation, lymphocytes present. B. EBUS aspiration #2, site 7: Negative for malignant cells. Mostly blood. A few respiratory epithelial cells. C. EBUS aspiration #3, site 7: Negative for malignant cells. Adequate for evaluation lymphocytes present. D. EBUS aspiration #4, hilar mass: Malignant cells present derived from non-small cell carcinoma. E. EBUS aspiration #5, hilar mass: Malignant cells present derived from non-small cell carcinoma. F. EBUS aspiration #6, hilar mass: Malignant cells present derived from non-small cell carcinoma. G. Site 7, TBNA, fluid (cytospin and cell block): Negative for metastatic carcinoma. See cytology study and comment. H. Hilar mass, TBNA (cytospin and cell block): Malignant cells present derived from non-small cell carcinoma, favor squamous cell carcinoma. See comment. I. RML, washing (cytospin and cell block): A few atypical squamous epithelial cells are noted. ANTIBODY / CLONE RESULT Block H AE1-3 (AE1/AE3/PCK26) positive, focal CK7 (OV-TL12/30) negative CK8 ([id number]) positive, focal CK20 (KS20.8) negative TTF-1 (8G7G3/1) negative Napsin A (Rabbit Polyclonal) negative HepPar (OCh1E5) negative RCC (PN-15) negative PSA (ER-PR8) negative CK5-6 (D5 AND 1684) positive P40 (BC28) positive PET CT January 27, 2018: IMPRESSION: 1. ABNORMAL EXAMINATION INDICATIVE OF MALIGNANT VIABLE NEOPLASM. 2. Increased glucose concentration identified in the right thoracic perihilum, infrahilar region fulfills quantitative criteria for viable neoplasm. (Rajiv et al, Journal of Clinical Oncology 16:2142, 1998). 3. Subtle increased glucose concentration observed in the right lower lateral hemithorax pulmonary parenchyma corresponding to apparent atelectatic change likely represents activated leukocytes associated with a localized inflammatory process-obstructive pneumonitis. 4. The increase in glucose concentration observed in the descending thoracic, as well as abdominal aorta is commensurate with activated leukocytes associated with atherosclerotic plaque formation. (Michael et al, Clinical Nuclear Medicine 29:93, 2004). 5. Asymmetric increased glucose concentration visualized in the left diaphragmatic crura is most consistent with a component muscle tension artifact. Brain MRI January 29, 2018: No evidence of metastases PFTs January 2018: INTERPRETATION: Forced expiration spirometry demonstrates the presence of a very severe large airways obstructive ventilatory defect. There was a significant response to aerosolized bronchodilators. Spirograms are of good quality and do not plateau indicating slow emptying of the lungs. Body plethysmography was performed and reveals an elevated RV to 232% of predicted, indicative of underlying air trapping. Diffusing capacity by single breath CO severely reduced at 38% of predicted. IMPRESSION: These pulmonary function studies demonstrate the presence of a partially reversible very severe large airways obstructive ventilatory defect with associated air trapping and symmetric reduction in diffusing capacity. March 04, 2018: Surgical consultation at [facility] found the patient a poor surgical candidate due to insufficient pulmonary reserve. March 27, 2018: No pleural effusion noted, diagnostic thoracocentesis was negative for malignancy. Treatment: Concomitant chemo (weekly carbotaxol X5) with radiation March 19, 2018-April 15, 2018. Consolidation chemo Taxol/Carboplatin 05/27/18- 06/25/18 (Cycle 2 delayed by 1 week d/t respiratory infection and thrombocytopenia) - Interval History The patient is presenting to clinic accompanied by spouse for an evaluation anticipating he will receive cycle 2 carboplatin/Taxol today. States I feel so much better citing his exertional dyspnea is back to baseline. Cough resolved. Completed atb > 1 week ago. No fevers/chills, sweats, sinus drainage, N/V, abd pain, overt bleeding/abnormal bruising. - Past Medical/Social History Past Medical History Cancer: Lung cancer Other Cancer History: BCC MULTIPLE Social History Social History: No changes Smoking Status Former smoker Review of Systems Constitutional:: Reports: Fatigue - mild. Denies: Fever, Sweats, Weight loss, Appetite change, Chills Cardiovascular:: Reports: Dyspnea on exertion. Denies: Chest pain, Palpitations, Orthopnea, PND, Shortness of breath Respiratory: Denies: Cough, Hemoptysis, Shortness of Breath, Wheezing Gastrointestinal:: Denies: Abdominal pain, Nausea, Vomiting, Diarrhea, Constipation, Melena, Hematochezia Genitourinary: Denies: Dysuria, Hematuria, 15, Flank pain Musculoskeletal:: Denies: Back pain, Myalgia, Arthralgia Skin: Denies: Rash, Skin Changes, Wounds Neurological:: Denies: Headache, Dizziness, Numbness, Tingling, Visual changes, Tinnitus, Hearing loss Psychiatric: Denies: Anxiety, Depression, Homicidal Ideations, Suicidal Ideations Vital Signs Height 5 ft 9 in Weight: 174 lb 9.6 oz Weight in Pounds 174.6 lbs BMI 29.9 Pulse Ox 98 - Physical Exam General: Alert, Oriented x3, No apparent distress HEENT: Atraumatic, PERRLA, EOMI, Normocephalic, - - wears glasses Oropharynx:: Negative for: Dry mucosa, Ulcerated lesions Neck:: Supple, Trachea midline. Negative for: JVD, bilateral Cardiac:: Regular rate, Regular rhythm, Normal S1, Normal S2. Negative for: Murmur Lungs: Clear to auscultation, Excusion symmetrical. Negative for: Rhonchi, Wheezes Abdomen:: Bowel sounds x 4, Soft, Non-tender, Non-distended. Negative for: Hepatosplenomegaly Extremities:: Negative for: Cyanosis, Edema Neurological: Neuro grossly intact Skin:: - - Port right upper chest accessed with gripper covered with DSD. Negative for: Lesions, Rash, Petechiae, Ecchymosis Psychiatric:: Appropriate affect, Euthymic Lymphatics:: Negative for: Cervical lymphadenopathy, Supraclavicular lymphadenopathy, Axillary lymphadenopathy Diagnostic Data: Diagnostic Data PET, CT Tumor Imaging 01/27/18 12:45 IMPRESSION: 1. ABNORMAL EXAMINATION INDICATIVE OF MALIGNANT VIABLE NEOPLASM. 2. Increased glucose concentration identified in the right thoracic perihilum, infrahilar region fulfills quantitative criteria for viable neoplasm. (VanSteenkiatul et al, Journal of Clinical Oncology 16:2142, 1998). 3. Subtle increased glucose concentration observed in the right lower lateral hemithorax pulmonary parenchyma corresponding to apparent atelectatic change likely represents activated leukocytes associated with a localized inflammatory process-obstructive pneumonitis. 4. The increase in glucose concentration observed in the descending thoracic, as well as abdominal aorta is commensurate with activated leukocytes associated with atherosclerotic plaque formation. (Michael et al, Clinical Nuclear Medicine 29:93, 2004). 5. Asymmetric increased glucose concentration visualized in the left diaphragmatic crura is most consistent with a component muscle tension artifact. Electronic Signature Keith Patel D.O. 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 Clinical and radiologic staging is consistent with localized disease most likely IIIA (T4, Nx, M0) but patient not a surgical candidate due to poor pulmonary reserve. Started combined chemoradiation March 19, 2018. Received 5 weekly doses of carbo taxol between March 19 - April 15, 2018. A new right pleural effusion was noted March 25, underwent a diagnostic tap and cytology is negative. Comorbid conditions: COPD, hypertension and dyslipidemia. Plan: #1 Received cycle 1/2 of carbo Taxol on 05/27/18 given at 3 weeks intervals with growth factor support. Cycle 2 delayed d/t respiratory infection. CBC reviewed, shows Hgb 9.5, platelets 131,000 and ANC 6.1. Weight unchanged, 194 lb today. Labs are within acceptable parameters for treatment and he is otherwise not endorsing any s/sx of toxicity contraindicating chemotherapy today. Thus will proceed with planned cycle 2 Carboplatin/Taxol. #2 Reassessment of disease status with imaging after completion of therapy phase (July 2018). #3 We will assess for consolidation therapy with Durvalumab (anti-PDL 1 monoclonal antibody immune therapy) after above (upon return from a planned vacation in [place] August 2018). #4 Hypokalemia- Resolved, K 3.5 today. Will monitor closely RTC on 07/03/17 for cycle 2 toxicity assessment, sooner if issues arise. Cecy Eng, MSN, BIOLOGICAL SCIENCE TECHNICIAN FISH-C, AOCNP Medications: Prescriptions This Visit Medication Instructions Recorded Primary Care Provider: Semaj Page MD Referring Provider: Antonio Chin DO - Problem List (1) Primary cancer of right middle lobe of lung Status: Acute (2) Chemotherapy management, encounter for Status: Acute 06/25/18 1051 <Electronically signed by Cecy Eng DIE CUTTER OPERATOR-C> Date Cecy Velasquez DIE CUTTER OPERATOR-C Cosigner Signature: Date (if applicable) CC: CBC W/DIFF, AUTOMATED Collected: 06/25/2018 Status: F Source: [place] 10:07 AM [facility] REPOSITORY TYPE CODE TESTS RESULT OUT OF RANGE REFERENCE UNITS LAB L100.1000 4.4-11.0 K/mm3 Normal WBC 6.1 LAB L100.1200 4.6-6.2 M/mm3 Low RBC 3.14 LAB L100.1300 13.0-16.5 g/dl Low HGB 9.5 LAB L100.1400 40-54 % Low HCT 29.7 LAB L100.1500 80-94 fL High MCV 94.6 LAB L100.1600 27.0-32.0 pg Normal MCH 30.3 LAB L100.1700 32-36 g/gl Normal MCHC 32.0 LAB L100.1810 11.6-14.6 % High RDW CV 19.7 LAB L100.1820 35.1-43.9 fl High RDW SD 67.5 LAB L100.1900 150-450 K/mm3 Low PLT 131 LAB L100.2000 6.2-12.0 fl Normal MPV 8.3 LAB L100.2100 47-70 % High NEUT% 81.4 LAB L100.2200 19-41 % Low LY% 8.3 LAB L100.2300 0-10 % Normal MONO% 8.3 LAB L100.2400 0-5 % Normal EO% 1.5 LAB L100.2500 0-1 % Normal BASO% 0.2 LAB L100.2550 0.0-0.9 % Normal IM GRAN % 0.300 Result Comment: IG% - Immature Granulocytes (promyelocytes, myelocytes and metamyelocytes) > 1% indicates that a LEFT SHIFT is Present. LAB L100.2620 2.0-7.7 X10 3/uL Absolute Neut Normal 5.0 LAB L100.2720 0.83-4.51 X10 3/ul Low Absolute Lymph 0.51 LAB L100.7300 ANISO Normal 1+ LAB L100.7600 HYPOCHROMASIA Normal 1+ Performed By: #### L100.0100 #### [facility] [address] [place], [address] COMPREHENSIVE METABOLIC Collected: 06/25/2018 Status: F Source: [facility] 10:07 AM [facility] REPOSITORY Order Comment: Reason for Laboratory Test Chemotherapy TYPE CODE TESTS RESULT OUT OF RANGE REFERENCE UNITS LAB L501.0100 74-106 mg/dL High GLU 107 Result Comment: Fasting Glucose result from 100 to 125 mg/dL suggests IMPAIRED HOMEOSTASIS per A.D.A. criteria. Please note revised GLUCOSE reference range effective 2017. LAB L501.1000 7-18 mg/dL High BUN 19 LAB L501.1100 0.70-1.30 mg/dL Normal CREAT,SERUM 1.06 Result Comment: The validity of the calculated GFR AND GFRAA in patients over 70 years has not been determined. Clinical correlation is essential. LAB L501.1110 >60 mL/min Normal EST GFR 74 Result Comment: Non- GFR Calc LAB L501.1115 >60 mL/min Normal EST GFR - AA 90 Result Comment: GFR Calc LAB L501.1255 ml/min Normal Estimated CRCL 67.62 LAB L501.1300 10-20 RATIO Normal BUN/CRE 17.9 LAB L501.1500 6.4-8. g/dL Normal 2 T PROT 6.6 LAB L501.1800 3.2-5. g/dL Low 0 ALB 3.1 LAB L501.1950 2.2-4. g/dL Normal 2 GLOB 3.5 LAB L501.2000 0.9-2. RATIO Normal 4 A/G 0.9 LAB L501.2200 8.5-10 mg/dL Normal .1 CA 8.6 LAB L501.4100 15-37 U/L Normal AST 21 LAB L501.4305 45-117 U/L High ALK P 156 LAB L501.4405 16-61 U/L Normal ALT 25 LAB L501.4600 0.20-1 mg/dL Normal .00 T BILI 0.60 LAB L501.5300 136-14 mmol/L Normal 5 NA 140 LAB L501.5600 3.5-5. mmol/L Normal 1 K 3.5 LAB L501.5900 98-107 mmol/L Normal CL 101 LAB L501.6100 21.0-3 mmol/L Normal 2.0 CO2 30.0 LAB L501.6200 5-15 Normal GAP 9 Performed By: #### L500.4050 #### [facility] [address] [place], [address] ONCOLOGY VISIT REPORT Observed: 06/17/2018 Status: F Source: [place] 12:31 PM [facility] REPOSITORY [facility] [address] [place] [address] OFFICE VISIT Date of Service: 06/17/18 1226 MR#: [id number] Acct: [id number] Name: ANGEL LUIS GAUTAM Rep #: [id number] : 1950 From: Juan Carlos Plummer MD Age/Sex: 67/M Location: ONC Status: Signed - Problem List (1) Primary cancer of right middle lobe of lung Status: Acute (2) Pleural effusion, right Status: Acute Comment: March 2018, negative cytology (3) Anemia Status: Acute - Date of Service Date of Service:: 06/17/18 - Chief Complaint Lung cancer on treatment - History of Present Illness Patient is a 67-year-old gentleman ex-smoker who started smoking around age 15 averaging 2-1/2-3 packs per day and quit in 2011 and has a baseline COPD dyslipidemia and hypertension. He was in his usual state of health until May 2017 when he experienced an episode of hemoptysis , chest x-ray showed a right middle lobe infiltrate and he was treated for pneumonia and improved. However November 2017 experienced recurrence of hemoptysis in addition to worsening dyspnea and December 11, 2017 CT scan of the chest showed a right middle lobe mass associated with complete atelectasis of the right middle lobe. January 17, 2018 bronchoscopy with EBUS: FINDINGS: The visualized oropharynx appears normal. The vocal cords appeared normal and moved normally with breathing. The subglottic space is normal. The trachea was of normal caliber. The courtney is sharp. The tracheal bronchial trees of the left and right lungs were examined to at least the first subsegmental level. There was scant mucoid secretions noted in the left lower lobe. Within the right tracheal bronchial tree, there was a fungating obstructing mass occupying the orifice of the right middle lobe and right lower lobe. Only a slitlike portion of the right lower lobe orifice could be visualized. The lesion could not be traversed with the bronchoscope. Once the airway inspection was completed, the standard bronchoscope was withdrawn and a convex probe endobronchial ultrasound (EBUS) bronchoscope was inserted through the same route. The endobronchial ultrasound endoscope was then utilized to systematically examine the superior/inferior mediastinal and hilar lymph nodes to assist with fine-needle aspiration. No significant left-sided hilar lymphadenopathy was identified. 2 small lymph nodes were identified at lymph node station #7 (subcarina) and subsequently biopsied In total, 6 transbronchial needle aspirations were completed at 2 different lymph node stations. Transbronchial needle aspiration was performed at lymph node station #7(subcarina) using an Olympus EBUS-TBNA 19-gauge needle and sent for routine cytology. The procedure was guided by ultrasound. 3 samples were obtained. Transbronchial needle aspiration was then performed of the right-sided hilar lesion which encompassed the right middle lobe and right lower lobe takeoff, using an Olympus EBUS-TBNA 19-gauge needle and sent for routine cytology. The procedure was guided by ultrasound. 3 samples were obtained. Rapid on-site evaluation (ELYSIA): Preliminary cytology was suggestive of non-small cell carcinoma. Final pathology results are pending. Following this, the EBUS endoscope was subsequently withdrawn from the patient's airway through the LMA. A conventional bronchoscope was then reinserted into the patient's airway, at which time, endobronchial biopsies were obtained from the right middle lobe orifice, where the fungating mass was most pronounced. A total of 3 endobronchial forceps biopsies were completed. Bronchial washing was completed in the bronchus intermedius. Ice cold saline was infused into the region to facilitate achieving hemostasis. All retained secretions and/or blood was cleared from the patient's airway. The bronchoscope was then withdrawn without complication. The patient was then transferred to the PACU, where they recovered in the usual fashion. IMPRESSION: 1. Large right-sided obstructing lung mass. The fungating endobronchial portions of this lesion obstructed the orifice of the right middle and right lower lobes. The lesion was not able to be traversed by the bronchoscope. 2. Subcarinal lymphadenopathy status post transbronchial needle aspiration 3. Mucoid secretions within the left lower lobe. 4. No significant left-sided hilar adenopathy was identified. Pathology: MICROSCOPIC DIAGNOSIS RML, endobronchial biopsy: Non-small cell carcinoma, favor squamous cell carcinoma DIAGNOSIS CYTOLOGY A. EBUS aspiration #1, site 7: Negative for malignant cells. Adequate for evaluation, lymphocytes present. B. EBUS aspiration #2, site 7: Negative for malignant cells. Mostly blood. A few respiratory epithelial cells. C. EBUS aspiration #3, site 7: Negative for malignant cells. Adequate for evaluation lymphocytes present. D. EBUS aspiration #4, hilar mass: Malignant cells present derived from non-small cell carcinoma. E. EBUS aspiration #5, hilar mass: Malignant cells present derived from non-small cell carcinoma. F. EBUS aspiration #6, hilar mass: Malignant cells present derived from non-small cell carcinoma. G. Site 7, TBNA, fluid (cytospin and cell block): Negative for metastatic carcinoma. See cytology study and comment. H. Hilar mass, TBNA (cytospin and cell block): Malignant cells present derived from non-small cell carcinoma, favor squamous cell carcinoma. See comment. I. RML, washing (cytospin and cell block): A few atypical squamous epithelial cells are noted. ANTIBODY / CLONE RESULT Block H AE1-3 (AE1/AE3/PCK26) positive, focal CK7 (OV-TL12/30) negative CK8 ([id number]) positive, focal CK20 (KS20.8) negative TTF-1 (8G7G3/1) negative Napsin A (Rabbit Polyclonal) negative HepPar (OCh1E5) negative RCC (PN-15) negative PSA (ER-PR8) negative CK5-6 (D5 AND 1684) positive P40 (BC28) positive PET CT January 27, 2018: IMPRESSION: 1. ABNORMAL EXAMINATION INDICATIVE OF MALIGNANT VIABLE NEOPLASM. 2. Increased glucose concentration identified in the right thoracic perihilum, infrahilar region fulfills quantitative criteria for viable neoplasm. (Rajiv et al, Journal of Clinical Oncology 16:2142, 1998). 3. Subtle increased glucose concentration observed in the right lower lateral hemithorax pulmonary parenchyma corresponding to apparent atelectatic change likely represents activated leukocytes associated with a localized inflammatory process-obstructive pneumonitis. 4. The increase in glucose concentration observed in the descending thoracic, as well as abdominal aorta is commensurate with activated leukocytes associated with atherosclerotic plaque formation. (Michael et al, Clinical Nuclear Medicine 29:93, 2004). 5. Asymmetric increased glucose concentration visualized in the left diaphragmatic crura is most consistent with a component muscle tension artifact. Brain MRI January 29, 2018: No evidence of metastases PFTs January 2018: INTERPRETATION: Forced expiration spirometry demonstrates the presence of a very severe large airways obstructive ventilatory defect. There was a significant response to aerosolized bronchodilators. Spirograms are of good quality and do not plateau indicating slow emptying of the lungs. Body plethysmography was performed and reveals an elevated RV to 232% of predicted, indicative of underlying air trapping. Diffusing capacity by single breath CO severely reduced at 38% of predicted. IMPRESSION: These pulmonary function studies demonstrate the presence of a partially reversible very severe large airways obstructive ventilatory defect with associated air trapping and symmetric reduction in diffusing capacity. March 04, 2018: Surgical consultation at [facility] found the patient a poor surgical candidate due to insufficient pulmonary reserve. March 27, 2018: No pleural effusion noted, diagnostic thoracocentesis was negative for malignancy. Treatment: Concomitant chemo (weekly carbotaxol X5) with radiation March 19, 2018-April 15, 2018. - Interval History Recovering from recent respiratory infection possible pneumonia, completed antibiotics - Past Medical/Social History Past Medical History Cancer: Lung cancer Other Cancer History: [facility] MULTIPLE Social History Social History: No changes Smoking Status Former smoker Review of Systems Constitutional:: Reports: Weakness, Fatigue, Appetite change. Denies: Fever, Sweats, Weight loss, Chills Cardiovascular:: Reports: Dyspnea on exertion. Denies: Chest pain, Palpitations, Orthopnea, PND, Shortness of breath Respiratory: Reports: Cough, Hemoptysis - Occasional minor, Shortness of breath upon exertion, Sputum production. Denies: Shortness of Breath, Wheezing Gastrointestinal:: Reports: Diarrhea - Had diarrhea, onset preceded use of antibiotics, resolved this week. Denies: Abdominal pain, Nausea, Vomiting, Constipation, Hematochezia Genitourinary: Denies: Dysuria, Hematuria, 15, Flank pain Musculoskeletal:: Reports: - - Bony aches and pains followed Neulasta lasted a few days and resolved. Denies: Back pain, Myalgia, Arthralgia Skin: Denies: Rash, Skin Changes, Wounds Neurological:: Denies: Headache, Dizziness, Visual changes, Tinnitus, Hearing loss Psychiatric: Denies: Anxiety, Depression, Homicidal Ideations, Suicidal Ideations Vital Signs Height 5 ft 9 in Weight: 87.634 kg Weight in Pounds 193.2 lbs BMI 29.9 Pulse Ox 99 - Physical Exam General: Alert, Oriented x3, No apparent distress, - - Tired looking, ECOG 2 HEENT: Atraumatic, PERRLA, EOMI, Normocephalic Oropharynx:: Dry mucosa Neck:: Supple, Trachea midline, -. Negative for: JVD, bilateral Cardiac:: Regular rate, Regular rhythm, Normal S1, Normal S2. Negative for: Murmur Lungs: Clear to auscultation, Shortness of breath, Excusion symmetrical. Negative for: Rhonchi, Wheezes Abdomen:: Soft, Non-tender, Non-distended. Negative for: Hepatosplenomegaly Extremities:: Negative for: Cyanosis, Edema Neurological: Neuro grossly intact Skin:: Negative for: Lesions, Rash, Petechiae, Ecchymosis Psychiatric:: Appropriate affect, Euthymic Lymphatics:: Negative for: Cervical lymphadenopathy, Supraclavicular lymphadenopathy Laboratory Data: Laboratory Tests WBC 5.1 (4.4-11.0) K/mm3 RBC 3.20 L (4.6-6.2) M/mm3 Hgb 9.6 L (13.0-16.5) g/dl Hct 29.0 L (40-54) % Diagnostic Data: Diagnostic Data PET, CT Tumor Imaging 01/27/18 12:45 IMPRESSION: 1. ABNORMAL EXAMINATION INDICATIVE OF MALIGNANT VIABLE NEOPLASM. 2. Increased glucose concentration identified in the right thoracic perihilum, infrahilar region fulfills quantitative criteria for viable neoplasm. (Rajiv et al, Journal of Clinical Oncology 16:2142, 1998). 3. Subtle increased glucose concentration observed in the right lower lateral hemithorax pulmonary parenchyma corresponding to apparent atelectatic change likely represents activated leukocytes associated with a localized inflammatory process-obstructive pneumonitis. 4. The increase in glucose concentration observed in the descending thoracic, as well as abdominal aorta is commensurate with activated leukocytes associated with atherosclerotic plaque formation. (Michael et al, Clinical Nuclear Medicine 29:93, 2004). 5. Asymmetric increased glucose concentration visualized in the left diaphragmatic crura is most consistent with a component muscle tension artifact. Electronic Signature Keith Patel D.O. 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 Clinical and radiologic staging is consistent with localized disease most likely IIIA (T4, Nx, M0) but patient not a surgical candidate due to poor pulmonary reserve. Started combined chemoradiation March 19, 2018. Received 5 weekly doses of carbotaxol between March 19 - April 15, 2018. Received cycle 1 of 2 of consolidation carbotaxol May 2018, complicated with cytopenias and a respiratory tract infection requiring antibiotics at home since he was not neutropenic. He is still recovering. A new right pleural effusion was noted March 25, underwent a diagnostic tap and cytology is negative. Comorbid conditions: COPD, hypertension and dyslipidemia. Plan: #1 Delay cycle 2/2 of carbo Taxol for 1 week to allow full recovery of bone marrow function and from a recent respiratory infection. #2 reassessment of disease status with imaging after completion of therapy phase (July 2018. #3 We will assess for consolidation therapy with Durvalumab (anti-PDL 1 monoclonal antibody immune therapy) after above (upon return from a planned vacation in [place] August 2018). Patient was seen was his impression and plan discussed. Medications: Prescriptions This Visit Medication Instructions Recorded Medications Added to Medication List This Visit Potassium Cl 20 Meq [KCl 20MEQ/100ML] Med 06/17/18 11:40 Active 20 meq in 100 ml IV BOLUS Q1H Primary Care Provider: Semaj Page MD Referring Provider: Antonio Chin DO 06/17/18 1231 <Electronically signed by Juan Carlos Plummer MD> Date Juan Carlos Plummer MD Cosigner Signature: Date (if applicable) CC: CBC W/DIFF, AUTOMATED Collected: 06/17/2018 Status: F Source: [place] 10:01 AM [facility] REPOSITORY TYPE CODE TESTS RESULT OUT OF RANGE REFERENCE UNITS LAB L100.1000 4.4-11.0 K/mm3 Normal WBC 5.1 LAB L100.1200 4.6-6.2 M/mm3 Low RBC 3.20 LAB L100.1300 13.0-16.5 g/dl Low HGB 9.6 LAB L100.1400 40-54 % Low HCT 29.0 LAB L100.1500 80-94 fL Normal MCV 90.6 LAB L100.1600 27.0-32.0 pg Normal MCH 30.0 LAB L100.1700 32-36 g/gl Normal MCHC 33.1 LAB L100.1810 11.6-14.6 % High RDW CV 18.9 LAB L100.1820 35.1-43.9 fl High RDW SD 62.1 LAB L100.1900 150-450 K/mm3 Low PLT 64 LAB L100.2000 6.2-12.0 fl Normal MPV 8.8 LAB L100.2100 47-70 % High NEUT% 79.8 LAB L100.2200 19-41 % Low LY% 14.1 LAB L100.2300 0-10 % Normal MONO% 4.5 LAB L100.2400 0-5 % Normal EO% 0.8 LAB L100.2500 0-1 % Normal BASO% 0.2 LAB L100.2550 0.0-0.9 % Normal IM GRAN % 0.600 Result Comment: IG% - Immature Granulocytes (promyelocytes, myelocytes and metamyelocytes) > 1% indicates that a LEFT SHIFT is Present. LAB L100.2620 2.0-7.7 X10 3/uL Normal Absolute Neut 4.1 LAB L100.2720 0.83-4.51 X10 3/ul Low Absolute Lymph 0.72 Performed By: #### L100.0100 #### [facility] [address] [place], [place], [id number] COMPREHENSIVE METABOLIC Collected: 06/17/2018 Status: F Source: [place] 10:01 AM [facility] REPOSITORY Order Comment: Reason for Laboratory Test Chemotherapy TYPE CODE TESTS RESULT OUT OF RANGE REFERENCE UNITS LAB L501.0100 74-106 mg/dL High GLU 127 Result Comment: Fasting Glucose result greater than or equal to 126 mg/dL suggests DIABETES MELLITUS per A.D.A. criteria. Please note revised GLUCOSE reference range effective 2017. LAB L501.1000 7-18 mg/dL Normal BUN 17 LAB L501.1100 0.70-1.30 mg/dL Normal CREAT,SERUM 0.90 Result Comment: The validity of the calculated GFR AND GFRAA in patients over 70 years has not been determined. Clinical correlation is essential. LAB L501.1110 >60 mL/min Normal EST GFR 89 Result Comment: Non- GFR Calc LAB L501.1115 >60 mL/min Normal EST GFR - AA 107 Result Comment: GFR Calc LAB L501.1255 ml/min Normal Estimated CRCL 79.65 LAB L501.1300 10-20 RATIO Normal BUN/CRE 18.8 LAB L501.1500 6.4-8. g/dL Normal 2 T PROT 6.9 LAB L501.1800 3.2-5. g/dL Low 0 ALB 2.9 LAB L501.1950 2.2-4. g/dL Normal 2 GLOB 4.0 LAB L501.2000 0.9-2. RATIO Low 4 A/G 0.7 LAB L501.2200 8.5-10 mg/dL Normal .1 CA 8.6 LAB L501.4100 15-37 U/L Normal AST 18 LAB L501.4305 45-117 U/L High ALK P 168 LAB L501.4405 16-61 U/L Normal ALT 19 LAB L501.4600 0.20-1 mg/dL Normal .00 T BILI 0.60 LAB L501.5300 136-14 mmol/L Low 5 NA 134 LAB L501.5600 3.5-5. mmol/L Low 1 K 2.8 LAB L501.5900 98-107 mmol/L Low CL 92 LAB L501.6100 21.0-3 mmol/L Normal 2.0 CO2 32.0 LAB L501.6200 5-15 Normal GAP 10 Performed By: #### L500.4050 #### [facility] [address] [place], [address] ONCOLOGY VISIT REPORT Observed: 06/04/2018 Status: F Source: [place] 4:07 PM [facility] REPOSITORY [facility] [address] [place] [address] OFFICE VISIT Date of Service: 06/04/18 1310 MR#: [id number] Acct: [id number] Name: ANGEL LUIS GAUTAM Rep #: [id number] : 1950 From: Ccey PALACIOS Age/Sex: 67/M Location: ONC Status: Signed Subjective - Date of Service Date of Service:: 06/04/18 - Chief Complaint Lung cancer on treatment - History of Present Illness Patient is a 67-year-old gentleman ex-smoker who started smoking around age 15 averaging 2-1/2-3 packs per day and quit in 2011 and has a baseline COPD dyslipidemia and hypertension. He was in his usual state of health until May 2017 when he experienced an episode of hemoptysis , chest x-ray showed a right middle lobe infiltrate and he was treated for pneumonia and improved. However November 2017 experienced recurrence of hemoptysis in addition to worsening dyspnea and December 11, 2017 CT scan of the chest showed a right middle lobe mass associated with complete atelectasis of the right middle lobe. January 17, 2018 bronchoscopy with EBUS: FINDINGS: The visualized oropharynx appears normal. The vocal cords appeared normal and moved normally with breathing. The subglottic space is normal. The trachea was of normal caliber. The courtney is sharp. The tracheal bronchial trees of the left and right lungs were examined to at least the first subsegmental level. There was scant mucoid secretions noted in the left lower lobe. Within the right tracheal bronchial tree, there was a fungating obstructing mass occupying the orifice of the right middle lobe and right lower lobe. Only a slitlike portion of the right lower lobe orifice could be visualized. The lesion could not be traversed with the bronchoscope. Once the airway inspection was completed, the standard bronchoscope was withdrawn and a convex probe endobronchial ultrasound (EBUS) bronchoscope was inserted through the same route. The endobronchial ultrasound endoscope was then utilized to systematically examine the superior/inferior mediastinal and hilar lymph nodes to assist with fine-needle aspiration. No significant left-sided hilar lymphadenopathy was identified. 2 small lymph nodes were identified at lymph node station #7 (subcarina) and subsequently biopsied In total, 6 transbronchial needle aspirations were completed at 2 different lymph node stations. Transbronchial needle aspiration was performed at lymph node station #7(subcarina) using an Olympus EBUS-TBNA 19-gauge needle and sent for routine cytology. The procedure was guided by ultrasound. 3 samples were obtained. Transbronchial needle aspiration was then performed of the right-sided hilar lesion which encompassed the right middle lobe and right lower lobe takeoff, using an Olympus EBUS-TBNA 19-gauge needle and sent for routine cytology. The procedure was guided by ultrasound. 3 samples were obtained. Rapid on-site evaluation (ELYSIA): Preliminary cytology was suggestive of non-small cell carcinoma. Final pathology results are pending. Following this, the EBUS endoscope was subsequently withdrawn from the patient's airway through the LMA. A conventional bronchoscope was then reinserted into the patient's airway, at which time, endobronchial biopsies were obtained from the right middle lobe orifice, where the fungating mass was most pronounced. A total of 3 endobronchial forceps biopsies were completed. Bronchial washing was completed in the bronchus intermedius. Ice cold saline was infused into the region to facilitate achieving hemostasis. All retained secretions and/or blood was cleared from the patient's airway. The bronchoscope was then withdrawn without complication. The patient was then transferred to the PACU, where they recovered in the usual fashion. IMPRESSION: 1. Large right-sided obstructing lung mass. The fungating endobronchial portions of this lesion obstructed the orifice of the right middle and right lower lobes. The lesion was not able to be traversed by the bronchoscope. 2. Subcarinal lymphadenopathy status post transbronchial needle aspiration 3. Mucoid secretions within the left lower lobe. 4. No significant left-sided hilar adenopathy was identified. Pathology: MICROSCOPIC DIAGNOSIS RML, endobronchial biopsy: Non-small cell carcinoma, favor squamous cell carcinoma DIAGNOSIS CYTOLOGY A. EBUS aspiration #1, site 7: Negative for malignant cells. Adequate for evaluation, lymphocytes present. B. EBUS aspiration #2, site 7: Negative for malignant cells. Mostly blood. A few respiratory epithelial cells. C. EBUS aspiration #3, site 7: Negative for malignant cells. Adequate for evaluation lymphocytes present. D. EBUS aspiration #4, hilar mass: Malignant cells present derived from non-small cell carcinoma. E. EBUS aspiration #5, hilar mass: Malignant cells present derived from non-small cell carcinoma. F. EBUS aspiration #6, hilar mass: Malignant cells present derived from non-small cell carcinoma. G. Site 7, TBNA, fluid (cytospin and cell block): Negative for metastatic carcinoma. See cytology study and comment. H. Hilar mass, TBNA (cytospin and cell block): Malignant cells present derived from non-small cell carcinoma, favor squamous cell carcinoma. See comment. I. RML, washing (cytospin and cell block): A few atypical squamous epithelial cells are noted. ANTIBODY / CLONE RESULT Block H AE1-3 (AE1/AE3/PCK26) positive, focal CK7 (OV-TL12/30) negative CK8 (58qaqmC49) positive, focal CK20 (KS20.8) negative TTF-1 (8G7G3/1) negative Napsin A (Rabbit Polyclonal) negative HepPar (OCh1E5) negative RCC (PN-15) negative PSA (ER-PR8) negative CK5-6 (D5 AND 1684) positive P40 (BC28) positive PET CT January 27, 2018: IMPRESSION: 1. ABNORMAL EXAMINATION INDICATIVE OF MALIGNANT VIABLE NEOPLASM. 2. Increased glucose concentration identified in the right thoracic perihilum, infrahilar region fulfills quantitative criteria for viable neoplasm. (Rajiv et al, Journal of Clinical Oncology 16:2142, 1998). 3. Subtle increased glucose concentration observed in the right lower lateral hemithorax pulmonary parenchyma corresponding to apparent atelectatic change likely represents activated leukocytes associated with a localized inflammatory process-obstructive pneumonitis. 4. The increase in glucose concentration observed in the descending thoracic, as well as abdominal aorta is commensurate with activated leukocytes associated with atherosclerotic plaque formation. (Michael et al, Clinical Nuclear Medicine 29:93, 2004). 5. Asymmetric increased glucose concentration visualized in the left diaphragmatic crura is most consistent with a component muscle tension artifact. Brain MRI January 29, 2018: No evidence of metastases PFTs January 2018: INTERPRETATION: Forced expiration spirometry demonstrates the presence of a very severe large airways obstructive ventilatory defect. There was a significant response to aerosolized bronchodilators. Spirograms are of good quality and do not plateau indicating slow emptying of the lungs. Body plethysmography was performed and reveals an elevated RV to 232% of predicted, indicative of underlying air trapping. Diffusing capacity by single breath CO severely reduced at 38% of predicted. IMPRESSION: These pulmonary function studies demonstrate the presence of a partially reversible very severe large airways obstructive ventilatory defect with associated air trapping and symmetric reduction in diffusing capacity. March 04, 2018: Surgical consultation at [facility] found the patient a poor surgical candidate due to insufficient pulmonary reserve. March 27, 2018: No pleural effusion noted, diagnostic thoracocentesis was negative for malignancy. Treatment: Concomitant chemo (weekly carbotaxol X5) with radiation March 19, 2018-April 15, 2018. - Interval History The patient is presenting to clinic accompanied by spouse for toxicity assessment. Patient received cycle 1 of consolidative chemotherapy with carboplatin and paclitaxel on 05/27/2018. Concerns today include continued productive cough and sinus drainage. Describes sputum thin, clear, and large in amount. Accompanied by modest increase in exertional dyspnea and sore throat times 2 weeks. Presently patient is taking Robitussin cough syrup at at bedtime and Mucinex throughout the day without any improvement of his symptoms. Denies fever, chills, sweats, hemoptysis, chest pain, nausea vomiting, swelling or pain of his extremities and numbness tingling. - Past Medical/Social History Past Medical History Cancer: Lung cancer Other Cancer History: [facility] Social History Social History: No changes Smoking Status Former smoker Review of Systems Constitutional:: Reports: Fatigue, Appetite change - Decreased. Denies: Fever, Sweats, Weight loss, Chills Cardiovascular:: Denies: Chest pain, Palpitations, Orthopnea, PND, Shortness of breath Respiratory: Reports: Cough, Shortness of Breath. Denies: Hemoptysis, Wheezing Gastrointestinal:: Denies: Abdominal pain, Nausea, Vomiting, Diarrhea, Constipation, Melena, Hematochezia Genitourinary: Denies: Dysuria, Hematuria, 15, Flank pain Musculoskeletal:: Denies: Back pain, Myalgia, Arthralgia Skin: Denies: Rash, Skin Changes, Wounds Neurological:: Denies: Headache, Dizziness, Numbness, Tingling, Visual changes, Tinnitus, Hearing loss Psychiatric: Denies: Anxiety, Depression, Homicidal Ideations, Suicidal Ideations Vital Signs Height 5 ft 9 in - Physical Exam General: Alert, Oriented x3, No apparent distress HEENT: Atraumatic, PERRLA, EOMI, Normocephalic, - - Wears glasses Oropharynx:: Negative for: Dry mucosa, Ulcerated lesions Neck:: Supple, Trachea midline. Negative for: JVD, bilateral Cardiac:: Regular rate, Regular rhythm, Normal S1, Normal S2. Negative for: Murmur Lungs: Diminished - Upper mena, on the right, Excusion symmetrical. Negative for: Rhonchi, Wheezes, Tachypneic, Increased respiratory effort Abdomen:: Bowel sounds x 4, Soft, Non-tender, Non-distended. Negative for: Hepatosplenomegaly Extremities:: Negative for: Cyanosis, Edema Neurological: Neuro grossly intact Skin:: Negative for: Lesions, Rash, Petechiae, Ecchymosis Psychiatric:: Appropriate affect, Euthymic Lymphatics:: Negative for: Cervical lymphadenopathy, Supraclavicular lymphadenopathy, Axillary lymphadenopathy Diagnostic Data: Diagnostic Data PET, CT Tumor Imaging 01/27/18 12:45 IMPRESSION: 1. ABNORMAL EXAMINATION INDICATIVE OF MALIGNANT VIABLE NEOPLASM. 2. Increased glucose concentration identified in the right thoracic perihilum, infrahilar region fulfills quantitative criteria for viable neoplasm. (Rajiv et al, Journal of Clinical Oncology 16:2142, 1998). 3. Subtle increased glucose concentration observed in the right lower lateral hemithorax pulmonary parenchyma corresponding to apparent atelectatic change likely represents activated leukocytes associated with a localized inflammatory process-obstructive pneumonitis. 4. The increase in glucose concentration observed in the descending thoracic, as well as abdominal aorta is commensurate with activated leukocytes associated with atherosclerotic plaque formation. (Michael et al, Clinical Nuclear Medicine 29:93, 2004). 5. Asymmetric increased glucose concentration visualized in the left diaphragmatic crura is most consistent with a component muscle tension artifact. Electronic Signature Keith Patel D.O. Electronically Signed: Keith Patel DO at 21:43 EDT Tel , Service support , Chest PA and Lateral 06/04/18 IMPRESSION: Elevation of the right hemidiaphragm with findings suggestive of infiltration in the right middle lobe and right upper. 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 Clinical and radiologic staging is consistent with localized disease most likely IIIA (T4, Nx, M0) but patient not a surgical candidate due to poor pulmonary reserve. Started combined chemoradiation March 19, 2018. Received 5 weekly doses of carbotaxol between March 19 - April 15, 2018. A new right pleural effusion was noted March 25, underwent a diagnostic tap and cytology is negative. Comorbid conditions: COPD, hypertension and dyslipidemia. Plan: #1 Received cycle 1/2 of carbo Taxol on 05/27/18 given at 3 weeks intervals with growth factor support. #2 reassessment of disease status with imaging after completion of therapy phase (July 2018. #3 We will assess for consolidation therapy with Durvalumab (anti-PDL 1 monoclonal antibody immune therapy) after above (upon return from a planned vacation in [place] August 2018). #4 Cough-chest x-ray revealed probable infiltrate right upper and middle lobes. fluoroquinolone coverage for community-acquired pneumonia and acute bacterial sinusitis, Rx provided for Levaquin 750 daily x7. Encouraged care with guaifenesin daily, increase p.o. fluid intake and dextromethorphan at bedtime. Rapid strep negative. Patient is in agreement with aforementioned plan. Return to clinic on 06/17/2018 for consideration of second and final cycle of carboplatin paclitaxel. Advised to seek immediate medical attention if he were to develop a fever or worsening of symptoms in the interim. Cecy Eng, MSN, BIOLOGICAL SCIENCE TECHNICIAN FISH-C, AOCNP Medications: Prescriptions This Visit Medication Instructions Recorded Primary Care Provider: Semaj Page MD Referring Provider: Antonio Chin DO - Problem List (1) Primary cancer of right middle lobe of lung Status: Acute (2) CAP (community acquired pneumonia) Status: Acute Qualifiers: Laterality: right Lung location: upper lobe of lung Qualified Code(s): J18.1 - Lobar pneumonia, unspecified organism (3) Acute bacterial sinusitis Status: Acute 06/04/18 1607 <Electronically signed by Cecy PALACIOS> Date Cecy PALACIOS Cosigner Signature: Date (if applicable) CC: CHEST PA AND LATERAL Observed: 06/04/2018 Status: F Source: [place] 2:01 PM [facility] REPOSITORY [facility] Imaging Services [address] [place] [address] Chest PA and Lateral MR#: [id number] Acct: [id number] Name: ANGEL LUIS GAUTAM Rep #: [id number] : 1950 67 From: Fish Mac MD PCP: Semaj Page MD Status: REG CLI Study: Chest PA and Lateral Date of Exam: 06/04/18 Exam# [id number] Ordering Dr: Cecy Eng STUDY: X-RAY CHEST REASON FOR EXAM: Male, 67 years old. One-week history of cough and sore throat. The patient has a history of right lung cancer with chemotherapy and radiation therapy. TECHNIQUE: PA and lateral views of the chest. COMPARISON: Comparison is made with prior study dated March 25, 2018. FINDINGS: A right-sided steve catheter is in situ with the tip in the proximal portion of the superior vena cava. There is elevation of the right hemidiaphragm. There now is evidence of a infiltration in the right middle lobe as well as in the right upper lobe. This most likely is superimposed on the right infrahilar mass. The left lung is clear. Normal size heart. Normal mediastinum and mercedes. There is prominence of the pulmonary hilar arteries without peripheral pulmonary vascular congestion, suggesting pulmonary hypertension. Normal visualized aortic arch and descending thoracic aorta. There are diffuse degenerative changes of the visualized thoracic spine. Normal visualized ribs, clavicles, and shoulders. There is no demonstrated abnormality of the visualized soft tissue structures of the upper abdomen. RAD/Chest PA and Lateral IMPRESSION: Elevation of the right hemidiaphragm with findings suggestive of infiltration in the right middle lobe and right upper. Electronically Signed: Fish Mac MD at 14:50 EST Tel [phone], Service support , CC: Semaj Page MD; Cecy Eng NP Rn Unit Manager: Signed CBC W/DIFF, AUTOMATED Collected: 06/04/2018 Status: F Source: [place] 1:48 PM [facility] REPOSITORY Order Comment: Reason for Laboratory Test TOX CK TYPE CODE TESTS RESULT OUT OF RANGE REFERENCE UNITS LAB L100.1000 4.4-11.0 K/mm3 Normal WBC 4.6 LAB L100.1200 4.6-6.2 M/mm3 Low RBC 3.37 LAB L100.1300 13.0-16.5 g/dl Low HGB 9.9 LAB L100.1400 40-54 % Low HCT 29.5 LAB L100.1500 80-94 fL Normal MCV 87.5 LAB L100.1600 27.0-32.0 pg Normal MCH 29.4 LAB L100.1700 32-36 g/gl Normal MCHC 33.6 LAB L100.1810 11.6-14.6 % High RDW CV 17.6 LAB L100.1820 35.1-43.9 fl High RDW SD 56.1 LAB L100.1900 150-450 K/mm3 Low PLT 55 LAB L100.2000 6.2-12.0 fl Normal MPV 9.4 LAB L100.2100 47-70 % Normal NEUT% 59.3 LAB L100.2200 19-41 % Normal LY% 19.0 LAB L100.2300 0-10 % High MONO% 18.0 LAB L100.2400 0-5 % Normal EO% 2.2 LAB L100.2500 0-1 % Normal BASO% 0.2 LAB L100.2550 0.0-0.9 % High IM GRAN % 1.300 Result Comment: IG% - Immature Granulocytes (promyelocytes, myelocytes and metamyelocytes) > 1% indicates that a LEFT SHIFT is Present. LAB L100.2620 2.0-7.7 X10 3/uL Absolute Neut Normal 2.7 LAB L100.2720 0.83-4.51 X10 3/ul Absolute Lymph Normal 0.88 LAB L100.5500 ADEQ PLT EST Normal MKD DEC LAB L100.7600 HYPOCHROMASIA Normal 1+ Performed By: #### L100.0100 #### [facility] [address] [place], [place], [id number] Observed: 06/04/2018 Status: F Source: [place] STREP A (THROAT 1:36 PM [facility] RAPID GAYATHRI) REPOSITORY Strep A Rapid Rapid Strep A Screen NEGATIVE A Disk (Conf. Cult) Negative for Strep Group A : All NEGATIVE screens will be confirmed with a culture. Performed By: #### M100.676 #### 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 From 03/19/18 - 05/02/18: received 6600 cGy of 6 MV photons in 33 fractions to the RML lung tumor with concurrent weekly carbo/taxol. History of Present Illness: 12/11/2017: Due to pneumonia and hemoptysis chest x-ray was performed which demonstrated increasing right middle lobe consolidation. 12/11/2017: CT chest with contrast was performed which demonstrated complete atelectasis of the right middle lobe. There is an obstructing mass which encompasses the right middle lobe bronchus measuring about 3.4 x 3 cm. No pleural effusion or pneumothorax is identified. There is evidence for shotty mediastinal lymph nodes and normal hilar regions. 01/17/2018: Bronchoscopy with EBUS was performed. Within the right tracheobronchial tree there was a fungating obstructing mass occupying the orifice of the right middle lobe and right lower lobe with only a slitlike portion of the right lower lobe orifice visualized, this area could not be traversed with the bronchoscope. Ultrasound-guided biopsy of level 7 and the hilar mass were performed as well as right middle lobe washing. Biopsy of the hilar mass demonstrated evidence for non-small cell carcinoma most consistent with squamous cell histology. Biopsy of level 7 did not demonstrate any evidence of malignant cells in the right middle lobe washing demonstrated a few atypical squamous epithelial cells. 01/27/2018: PET scan was completed which demonstrated increase in glucose metabolism defined in the right thoracic perihilum, infrahilar region generating a calculated SUV of 14.2 with a maximum axial diameter of the corresponding lesion on CT measuring 4.8 x 8.6 cm. There is heterogeneous increase in glucose concentration observed in the right lower lateral hemithorax pulmonary parenchyma contiguous to the apparent visualized atelectatic change on CT with a degenerated SUV of 1.7. There is no evidence for lymph node metastases or distant metastases. 01/31/2018: MRI of the brain was completed which demonstrated no evidence for metastatic disease. 02/11/2018: PFTs were completed which demonstrated very severe large airway obstructive ventilatory defect with significant response to aerosolized bronchodilators. DLCO is 38% of predicted, FEV1 25% of predicted. 02/25/2018: Patient was evaluated by thoracic surgery at [facility] it was deemed to not be a good candidate for surgical resection of the primary lung tumor given his pulmonary function. Recommendation was to complete definitive chemoradiation therapy. 03/25/18: had thoracentesis of right lung as pleural effusion was increasing and causing increased SOB. 520 mL of fluid removed, appears to be transudate. Cytology negative for malignant cells. From 03/19/18 - 05/02/18: received 6600 cGy of 6 MV photons in 33 fractions to the RML lung tumor with concurrent weekly carbo/taxol. Radiation Treatment History: 1) From 03/19/18 - 05/02/18: received 6600 cGy of 6 MV photons in 33 fractions to the RML lung tumor with concurrent weekly carbo/taxol. Interval History: Patient presents for follow-up approximately 1 month after completing definitive chemoradiation. He reports doing fairly well overall. He does report having continual cough which is sometimes dry and sometimes productive of clear sputum. The cough is worse at night and he has not been taking any medication for it. He believes that his breathing is stable other than for approximately 2 days last week when he felt more short of breath on exertion. He denies having any skin irritation, chest wall pain, arm numbness/weakness, odynophagia/dysphasia, headaches, vision changes, or bone pain. He believes his energy is stable and has been completing all activities of daily living without any difficulty. His taste is still abnormal but improving, his appetite and weight have remained relatively stable. He denies having any other problems or concerns at this time. I have reviewed the medical, surgical, and other pertinent history in details and have updated medication and allergy information in the electronic medical record. Review of Systems: A 12-point review of systems was completed and was negative except for what is noted in the HPI/Interval History and by the nurse. Height/Weight/BMI: Height: 5 ft 9 in Weight: 196.8 lbs (199.7 lbs at end of XRT) Vital Signs Temperature 98.4 F 05/27/18 10:33 Temperature Source Oral 05/27/18 10:33 Pulse Rate 79 05/27/18 10:33 Respiratory Rate 17 05/27/18 10:33 Physical Exam: ECO KARNOFSKY SCORE: 80% CONSTITUTIONAL: Well-developed, well-nourished, and in no apparent distress. HEENT: Mucous membranes moist. No evidence of thrush or lesions within the visualized oropharynx or oral cavity. No trismus. Pupils are equal, round, and reactive to light and accommodation. Extraocular movements are intact. Sclerae are anicteric. NECK: Supple,with no thyromegaly, and non-tender. Trachea midline. No cervical or supraclavicular adenopathy noted. CARDIAC: Regular rate and rhythm. Normal S1, S2. No murmurs, rubs, or gallops. PULMONARY/CHEST: Lungs are clear to auscultation and percussion bilaterally. Mild expiratory wheezing is appreciated bilaterally and otherwise no wheezes, rhonchi, or crackles noted. No increased work of breathing. ABDOMINAL: Abdomen soft, non-tender, non-distended. No hepatomegaly. Normoactive bowel sounds in all four quadrants. No guarding, rebound. BACK: Straight and aligned. No CVA tenderness. Axial skeleton non-tender to percussion. EXTREMITIES: Full range of motion in all four extremities, with normal strength equally and symmetrically. No evidence of edema. No clubbing. NEUROLOGICAL EXAM: Alert and oriented x 3. Cranial nerves II through XII are grossly intact. No focal neurological deficit. Speech is fluent. There is no upper or lower extremity sensory deficit or motor deficit. Muscle strength is 5/5 in all muscle groups. Gait and posture are steady. PSYCHIATRIC: Appropriate mood and affect for the clinical situation. 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 From 03/19/18 - 05/02/18: received 6600 cGy of 6 MV photons in 33 fractions to the RML lung tumor with concurrent weekly carbo/taxol. Patient returns for follow-up 1 month after completing definitive chemoradiation therapy. He appears to have recovered from radiation related toxicities other than potentially having a persistent cough. He will attempt zfbh-bdv-mwybhzi cough medication and if this is unsuccessful we will consider prednisone for possible radiation pneumonitis. His blood counts have recovered and he is initiating consolidative chemotherapy starting today. Following 2 cycles of consolidative chemotherapy he will have a CT of his chest to evaluate for disease response and will then consider maintenance Durvalumab. We will plan to follow-up with him following restaging imaging in mid to late July. We will likely recheck PFTs in 6 months. Patient was instructed to call with any further questions or concerns in the interim and he will inform us if his cough persists. Chaitanya Luther DO, MS Public Transit Specialist, Department of Radiation Oncology [facility] 05/27/18 1252 <Electronically signed by Chaitanya Luther DO> Date Chaitanya Luther DO CC: Karen Desir; Antonio Chin D.O.; Juan Carlos Plummer MD Signed ONCOLOGY VISIT REPORT Observed: 05/27/2018 Status: F Source: [place] 11:44 AM [facility] REPOSITORY [facility] [address] [place] [id number] OFFICE VISIT Date of Service: 05/27/18 1018 MR#: [id number] Acct: [id number] Name: ANGEL LUIS GAUTAM Rep #: [id number] : 1950 From: Juan Carlos Plummer MD Age/Sex: 67/M Location: ONC Status: Signed - Problem List (1) Primary cancer of right middle lobe of lung Status: Acute (2) Pleural effusion, right Status: Acute Comment: March 2018, negative cytology (3) Anemia Status: Acute - Date of Service Date of Service:: 05/27/18 - Chief Complaint Lung cancer on treatment - History of Present Illness Patient is a 67-year-old gentleman ex-smoker who started smoking around age 15 averaging 2-1/2-3 packs per day and quit in 2011 and has a baseline COPD dyslipidemia and hypertension. He was in his usual state of health until May 2017 when he experienced an episode of hemoptysis , chest x-ray showed a right middle lobe infiltrate and he was treated for pneumonia and improved. However November 2017 experienced recurrence of hemoptysis in addition to worsening dyspnea and December 11, 2017 CT scan of the chest showed a right middle lobe mass associated with complete atelectasis of the right middle lobe. January 17, 2018 bronchoscopy with EBUS: FINDINGS: The visualized oropharynx appears normal. The vocal cords appeared normal and moved normally with breathing. The subglottic space is normal. The trachea was of normal caliber. The courtney is sharp. The tracheal bronchial trees of the left and right lungs were examined to at least the first subsegmental level. There was scant mucoid secretions noted in the left lower lobe. Within the right tracheal bronchial tree, there was a fungating obstructing mass occupying the orifice of the right middle lobe and right lower lobe. Only a slitlike portion of the right lower lobe orifice could be visualized. The lesion could not be traversed with the bronchoscope. Once the airway inspection was completed, the standard bronchoscope was withdrawn and a convex probe endobronchial ultrasound (EBUS) bronchoscope was inserted through the same route. The endobronchial ultrasound endoscope was then utilized to systematically examine the superior/inferior mediastinal and hilar lymph nodes to assist with fine-needle aspiration. No significant left-sided hilar lymphadenopathy was identified. 2 small lymph nodes were identified at lymph node station #7 (subcarina) and subsequently biopsied In total, 6 transbronchial needle aspirations were completed at 2 different lymph node stations. Transbronchial needle aspiration was performed at lymph node station #7(subcarina) using an Olympus EBUS-TBNA 19-gauge needle and sent for routine cytology. The procedure was guided by ultrasound. 3 samples were obtained. Transbronchial needle aspiration was then performed of the right-sided hilar lesion which encompassed the right middle lobe and right lower lobe takeoff, using an Olympus EBUS-TBNA 19-gauge needle and sent for routine cytology. The procedure was guided by ultrasound. 3 samples were obtained. Rapid on-site evaluation (ELYSIA): Preliminary cytology was suggestive of non-small cell carcinoma. Final pathology results are pending. Following this, the EBUS endoscope was subsequently withdrawn from the patient's airway through the LMA. A conventional bronchoscope was then reinserted into the patient's airway, at which time, endobronchial biopsies were obtained from the right middle lobe orifice, where the fungating mass was most pronounced. A total of 3 endobronchial forceps biopsies were completed. Bronchial washing was completed in the bronchus intermedius. Ice cold saline was infused into the region to facilitate achieving hemostasis. All retained secretions and/or blood was cleared from the patient's airway. The bronchoscope was then withdrawn without complication. The patient was then transferred to the PACU, where they recovered in the usual fashion. IMPRESSION: 1. Large right-sided obstructing lung mass. The fungating endobronchial portions of this lesion obstructed the orifice of the right middle and right lower lobes. The lesion was not able to be traversed by the bronchoscope. 2. Subcarinal lymphadenopathy status post transbronchial needle aspiration 3. Mucoid secretions within the left lower lobe. 4. No significant left-sided hilar adenopathy was identified. Pathology: MICROSCOPIC DIAGNOSIS RML, endobronchial biopsy: Non-small cell carcinoma, favor squamous cell carcinoma DIAGNOSIS CYTOLOGY A. EBUS aspiration #1, site 7: Negative for malignant cells. Adequate for evaluation, lymphocytes present. B. EBUS aspiration #2, site 7: Negative for malignant cells. Mostly blood. A few respiratory epithelial cells. C. EBUS aspiration #3, site 7: Negative for malignant cells. Adequate for evaluation lymphocytes present. D. EBUS aspiration #4, hilar mass: Malignant cells present derived from non-small cell carcinoma. E. EBUS aspiration #5, hilar mass: Malignant cells present derived from non-small cell carcinoma. F. EBUS aspiration #6, hilar mass: Malignant cells present derived from non-small cell carcinoma. G. Site 7, TBNA, fluid (cytospin and cell block): Negative for metastatic carcinoma. See cytology study and comment. H. Hilar mass, TBNA (cytospin and cell block): Malignant cells present derived from non-small cell carcinoma, favor squamous cell carcinoma. See comment. I. RML, washing (cytospin and cell block): A few atypical squamous epithelial cells are noted. ANTIBODY / CLONE RESULT Block H AE1-3 (AE1/AE3/PCK26) positive, focal CK7 (OV-TL12/30) negative CK8 (33qjdsG85) positive, focal CK20 (KS20.8) negative TTF-1 (8G7G3/1) negative Napsin A (Rabbit Polyclonal) negative HepPar (OCh1E5) negative RCC (PN-15) negative PSA (ER-PR8) negative CK5-6 (D5 AND 1684) positive P40 (BC28) positive PET CT January 27, 2018: IMPRESSION: 1. ABNORMAL EXAMINATION INDICATIVE OF MALIGNANT VIABLE NEOPLASM. 2. Increased glucose concentration identified in the right thoracic perihilum, infrahilar region fulfills quantitative criteria for viable neoplasm. (Rajiv et al, Journal of Clinical Oncology 16:2142, 1997). 3. Subtle increased glucose concentration observed in the right lower lateral hemithorax pulmonary parenchyma corresponding to apparent atelectatic change likely represents activated leukocytes associated with a localized inflammatory process-obstructive pneumonitis. 4. The increase in glucose concentration observed in the descending thoracic, as well as abdominal aorta is commensurate with activated leukocytes associated with atherosclerotic plaque formation. (Michael et al, Clinical Nuclear Medicine 29:93, 2003). 5. Asymmetric increased glucose concentration visualized in the left diaphragmatic crura is most consistent with a component muscle tension artifact. Brain MRI January 29, 2018: No evidence of metastases PFTs January 2018: INTERPRETATION: Forced expiration spirometry demonstrates the presence of a very severe large airways obstructive ventilatory defect. There was a significant response to aerosolized bronchodilators. Spirograms are of good quality and do not plateau indicating slow emptying of the lungs. Body plethysmography was performed and reveals an elevated RV to 232% of predicted, indicative of underlying air trapping. Diffusing capacity by single breath CO severely reduced at 38% of predicted. IMPRESSION: These pulmonary function studies demonstrate the presence of a partially reversible very severe large airways obstructive ventilatory defect with associated air trapping and symmetric reduction in diffusing capacity. March 04, 2018: Surgical consultation at [facility] found the patient a poor surgical candidate due to insufficient pulmonary reserve. March 27, 2018: No pleural effusion noted, diagnostic thoracocentesis was negative for malignancy. Treatment: Concomitant chemo (weekly carbotaxol X5) with radiation March 19, 2018-April 15, 2018. - Past Medical/Social History Past Medical History Cancer: Lung cancer Other Cancer History: BCC MULTIPLE Social History Social History: No changes Smoking Status Former smoker Review of Systems Constitutional:: Reports: Weight loss, Weight gain - Regaining weight loss during chemoradiation. Denies: Fever, Sweats, Appetite change, Chills Cardiovascular:: Reports: Dyspnea on exertion. Denies: Chest pain, Palpitations, Orthopnea, PND, Shortness of breath Respiratory: Reports: Cough - Dry irritant, Shortness of breath upon exertion. Denies: Hemoptysis, Shortness of Breath, Wheezing Gastrointestinal:: Reports: Dysphagia - Resolved. Denies: Nausea, Vomiting, Diarrhea, Constipation, Hematochezia Genitourinary: Denies: Dysuria, Hematuria, 15, Flank pain Musculoskeletal:: Denies: Back pain, Myalgia, Arthralgia Skin: Denies: Rash, Skin Changes, Wounds Neurological:: Denies: Headache, Dizziness, Visual changes, Tinnitus, Hearing loss Psychiatric: Denies: Anxiety, Depression, Homicidal Ideations, Suicidal Ideations Vital Signs Height 5 ft 9 in Weight: 90.582 kg Weight in Pounds 199.7 lbs BMI 29.9 Pulse Ox 98 - Physical Exam General: Alert, Oriented x3, No apparent distress, - - ECOG 1 HEENT: Atraumatic, PERRLA, EOMI, Normocephalic Oropharynx:: Dry mucosa Neck:: Supple, Trachea midline, - - Port okay. Negative for: JVD, bilateral Cardiac:: Regular rate, Regular rhythm, Normal S1, Normal S2. Negative for: Murmur Lungs: Clear to auscultation, Excusion symmetrical. Negative for: Rhonchi, Wheezes Abdomen:: Soft, Non-tender, Non-distended. Negative for: Hepatosplenomegaly Extremities:: Negative for: Cyanosis, Edema Neurological: Neuro grossly intact Skin:: Negative for: Lesions, Rash, Petechiae, Ecchymosis Psychiatric:: Appropriate affect, Euthymic Lymphatics:: Negative for: Cervical lymphadenopathy, Supraclavicular lymphadenopathy Laboratory Data: CBC, CMP reviewed in EMR Diagnostic Data: Diagnostic Data PET, CT Tumor Imaging 01/27/18 12:45 IMPRESSION: 1. ABNORMAL EXAMINATION INDICATIVE OF MALIGNANT VIABLE NEOPLASM. 2. Increased glucose concentration identified in the right thoracic perihilum, infrahilar region fulfills quantitative criteria for viable neoplasm. (Rajiv zazueta al, Journal of Clinical Oncology 16:2142, 1998). 3. Subtle increased glucose concentration observed in the right lower lateral hemithorax pulmonary parenchyma corresponding to apparent atelectatic change likely represents activated leukocytes associated with a localized inflammatory process-obstructive pneumonitis. 4. The increase in glucose concentration observed in the descending thoracic, as well as abdominal aorta is commensurate with activated leukocytes associated with atherosclerotic plaque formation. (Handorita et al, Clinical Nuclear Medicine 29:93, 2004). 5. Asymmetric increased glucose concentration visualized in the left diaphragmatic crura is most consistent with a component muscle tension artifact. Electronic Signature Keith Patel D.O. 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 Clinical and radiologic staging is consistent with localized disease most likely IIIA (T4, Nx, M0) but patient not a surgical candidate due to poor pulmonary reserve. Started combined chemoradiation March 19, 2018. Received 5 weekly doses of carbotaxol between March 19 - April 15, 2018. A new right pleural effusion was noted March 25, underwent a diagnostic tap and cytology is negative. Comorbid conditions: COPD, hypertension and dyslipidemia. Plan: #1 To start cycle 1/2 of carbo Taxol giving at 3 weeks intervals with growth factor support. #2 reassessment of disease status with imaging after completion of therapy phase (July 2018. #3 We will assess for consolidation therapy with Durvalumab (anti-PDL 1 monoclonal antibody immune therapy) after above (upon return from a planned vacation in [place] August 2018). #4 For dry irritant cough use [id number] cough suppressant at bedtime Patient was seen was his impression and plan discussed. Medications: Prescriptions This Visit Medication Instructions Recorded Primary Care Provider: Semaj Page MD Referring Provider: Antonio Chin DO 05/27/18 1144 <Electronically signed by Juan Carlos Plummer MD> Date Juan Carlos Plummer MD Cosigner Signature: Date (if applicable) CC: Semaj Page MD CBC W/DIFF, AUTOMATED Collected: 05/27/2018 Status: F Source: [place] 9:54 AM [facility] REPOSITORY TYPE CODE TESTS RESULT OUT OF RANGE REFERENCE UNITS LAB L100.1000 4.4-11.0 K/mm3 Normal WBC 7.2 LAB L100.1200 4.6-6.2 M/mm3 Low RBC 3.70 LAB L100.1300 13.0-16.5 g/dl Low HGB 10.8 LAB L100.1400 40-54 % Low HCT 33.7 LAB L100.1500 80-94 fL Normal MCV 91.1 LAB L100.1600 27.0-32.0 pg Normal MCH 29.2 LAB L100.1700 32-36 g/gl Normal MCHC 32.0 LAB L100.1810 11.6-14.6 % High RDW CV 19.1 LAB L100.1820 35.1-43.9 fl High RDW SD 61.0 LAB L100.1900 150-450 K/mm3 Normal PLT 185 LAB L100.2000 6.2-12.0 fl Normal MPV 8.2 LAB L100.2100 47-70 % High NEUT% 74.6 LAB L100.2200 19-41 % Low LY% 8.0 LAB L100.2300 0-10 % High MONO% 11.9 LAB L100.2400 0-5 % Normal EO% 4.8 LAB L100.2500 0-1 % Normal BASO% 0.4 LAB L100.2550 0.0-0.9 % Normal IM GRAN % 0.300 Result Comment: IG% - Immature Granulocytes (promyelocytes, myelocytes and metamyelocytes) > 1% indicates that a LEFT SHIFT is Present. LAB L100.2620 2.0-7.7 X10 3/uL Normal Absolute Neut 5.4 LAB L100.2720 0.83-4.51 X10 3/ul Low Absolute Lymph 0.58 LAB L100.4500 Normal SMEAR COMMENT SCANNED Performed By: #### L100.0100 #### [facility] [place], [address] COMPREHENSIVE METABOLIC Collected: 05/27/2018 Status: F Source: [place] 9:54 AM [facility] REPOSITORY Order Comment: Reason for Laboratory Test Chemotherapy TYPE CODE TESTS RESULT OUT OF RANGE REFERENCE UNITS LAB L501.0100 74-106 mg/dL Normal GLU 88 Result Comment: Please note revised GLUCOSE reference range effective 2017. LAB L501.1000 7-18 mg/dL Normal BUN 15 LAB L501.1100 0.70-1.30 mg/dL Normal CREAT,SERUM 1.02 Result Comment: The validity of the calculated GFR AND GFRAA in patients over 70 years has not been determined. Clinical correlation is essential. LAB L501.1110 >60 mL/min Normal EST GFR 77 Result Comment: Non- GFR Calc LAB L501.1115 >60 mL/min Normal EST GFR - AA 94 Result Comment: GFR Calc LAB L501.1255 ml/min Normal Estimated CRCL 70.28 LAB L501.1300 10-20 RATIO Normal BUN/CRE 14.7 LAB L501.1500 6.4-8. g/dL Normal 2 T PROT 7.4 LAB L501.1800 3.2-5. g/dL Low 0 ALB 3.0 LAB L501.1950 2.2-4. g/dL High 2 GLOB 4.4 LAB L501.2000 0.9-2. RATIO Low 4 A/G 0.7 LAB L501.2200 8.5-10 mg/dL Normal .1 CA 8.9 LAB L501.4100 15-37 U/L Normal AST 23 LAB L501.4305 45-117 U/L High ALK P 125 LAB L501.4405 16-61 U/L Normal ALT 20 LAB L501.4600 0.20-1 mg/dL Normal .00 T BILI 0.80 LAB L501.5300 136-14 mmol/L Low 5 NA 134 LAB L501.5600 3.5-5. mmol/L Low 1 K 3.2 LAB L501.5900 98-107 mmol/L Low CL 93 LAB L501.6100 21.0-3 mmol/L Normal 2.0 CO2 32.0 LAB L501.6200 5-15 Normal GAP 9 Performed By: #### L500.4050 #### [facility] 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 Oncologic History: 12/11/2017: Due to pneumonia and hemoptysis chest x-ray was performed which demonstrated increasing right middle lobe consolidation. 12/11/2017: CT chest with contrast was performed which demonstrated complete atelectasis of the right middle lobe. There is an obstructing mass which encompasses the right middle lobe bronchus measuring about 3.4 x 3 cm. No pleural effusion or pneumothorax is identified. There is evidence for shotty mediastinal lymph nodes and normal hilar regions. 01/17/2018: Bronchoscopy with EBUS was performed. Within the right tracheobronchial tree there was a fungating obstructing mass occupying the orifice of the right middle lobe and right lower lobe with only a slitlike portion of the right lower lobe orifice visualized, this area could not be traversed with the bronchoscope. Ultrasound-guided biopsy of level 7 and the hilar mass were performed as well as right middle lobe washing. Biopsy of the hilar mass demonstrated evidence for non-small cell carcinoma most consistent with squamous cell histology. Biopsy of level 7 did not demonstrate any evidence of malignant cells in the right middle lobe washing demonstrated a few atypical squamous epithelial cells. 01/27/2018: PET scan was completed which demonstrated increase in glucose metabolism defined in the right thoracic perihilum, infrahilar region generating a calculated SUV of 14.2 with a maximum axial diameter of the corresponding lesion on CT measuring 4.8 x 8.6 cm. There is heterogeneous increase in glucose concentration observed in the right lower lateral hemithorax pulmonary parenchyma contiguous to the apparent visualized atelectatic change on CT with a degenerated SUV of 1.7. There is no evidence for lymph node metastases or distant metastases. 01/31/2018: MRI of the brain was completed which demonstrated no evidence for metastatic disease. 02/11/2018: PFTs were completed which demonstrated very severe large airway obstructive ventilatory defect with significant response to aerosolized bronchodilators. DLCO is 38% of predicted, FEV1 25% of predicted. 02/25/2018: Patient was evaluated by thoracic surgery at [facility] it was deemed to not be a good candidate for surgical resection of the primary lung tumor given his pulmonary function. Recommendation was to complete definitive chemoradiation therapy. 03/25/18: had thoracentesis of right lung as pleural effusion was increasing and causing increased SOB. 520 mL of fluid removed, appears to be transudate. Cytology negative for malignant cells The patient completed a course of external beam radiotherapy in our department. This treatment was delivered for [] intent. Treatment was given according to the following parameters: ANGEL LUIS GAUTAM received 6600 cGy of 6 MV photons in 33 fractions to the RML lung tumor with a VMAT technique consisting of 2 arcs. A verification simulation and re-plan was completed for the final 7 fractions due to tumor volume changes and improvement in lung expansion. The patient did receive concurrent chemotherapy with weekly Carbo/Taxol, final week not given due to neutropenia. Date of First Treatment: 03/19/18 Date of Last Treatment: 05/02/18 Total Elapsed Days (including weekend and holidays): 44 Missed Treatments: none Response and Tolerance: The patient tolerated this course of radiotherapy well overall. The following radiation related toxicities developed during the course of radiation therapy: * Grade 1 esophagitis which was treated with dietary modification and MMW * Grade 1 fatigue * Neutropenia with susan of 1.0, no fevers * Total weight change during therapy: 6 lb loss Disposition: The patient tolerated the planned course of radiation therapy well without unexpected toxicity in an appropriate time course. I will have the patient follow- up in about 4 weeks for a routine visit to assess resolution of radiation toxicity. Current plan is to complete consolidative chemotherapy and possibly Durvalumab. The patient will maintain scheduled follow-up visits with the other providers. He was instructed to call with any further questions or concerns in the interim. If we can provide any further information on this patient's course of care, please do not hesitate to ask. We would like to thank you very much for allowing us to participate in the care of this patient. Sincerely, Chaitanya Luther DO, MS Public Transit Specialist, Department of Radiation Oncology [facility] 05/02/18 1021 <Electronically signed by Chaitanya Luther DO> Date Chaitanya Luther DO Cosigner Signature: Date (if applicable) CC: Antonio Chin D.O.; Semaj Page MD; Juan Carlos Plummer MD RADIATION ONCOLOGY Observed: 04/30/2018 Status: F Source: [place] VISIT 10:41 AM [facility] REPOSITORY [facility] [address] [place] [id number] OFFICE VISIT Date of Service: 04/30/18 1039 MR#: [id number] Acct: [id number] Name: ANGEL LUIS GAUTAM Rep #: [id number] : 1950 From: Chaitanya Luther DO Age/Sex: 67/M Location: [facility] Status: Signed Date of Service: 04/30/18 Diagnosis: Angel Luis Gautam is a 67-year-old male diagnosed with 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 Plan was made to complete definitive chemoradiation therapy consisting of 6600 cGy delivered in 33 fractions. Treatment Data: Treatment Site: Right Lower Lobe of the lung Current total dose/Total dose planned: 6200 cGy / 6600 cGy Fraction number: Chemotherapy: weekly carbo/taxol (Saturday), cancelled final cycle due to neutropenia Subjective: Doing well overall, no current complaints. 03/25/18: had thoracentesis of right lung as pleural effusion was increasing and causing increased SOB. 520 mL of fluid removed, appears to be transudate. Cytology negative for malignant cells Resp: SOB stable, only with exertion. Occasional cough, no hemoptysis Swallowing: Has moderate odynophagia, no dysphagia or regurgitation, occasional GERD Energy: mild fatigue Pain: up to 5 / 10 with swallowing, MMW not helping much Diet: normal without restriction, appetite normal Height/Weight/BMI: Height: 5 ft 9 in Weight: 03/19/18: 206 lbs, 03/26/18: 205 lbs, 04/02/18: 204.1 lbs, 04/09/18: 202.6, 04/16/18: 203 lbs, 04/23/18: 200 lbs, 04/30/18: 199.7 lbs) Vital Signs Temperature 98.3 F 04/30/18 10:18 Temperature Source Oral 04/30/18 10:18 Pulse Rate 80 04/30/18 10:18 Respiratory Rate 16 04/30/18 10:18 Labs: Laboratory Tests WBC 3.0 L Hgb 11.4 L Plt Count 179 Absolute Neuts (auto) 2.4 Laboratory Tests WBC 2.1 L Hgb 10.8 L Plt Count 100 L Absolute Neuts (auto) 1.6 L Laboratory Tests WBC 1.4 L* Hgb 10.5 L Plt Count 111 L Absolute Neuts (auto) 1.0 L Objective: Gen: NAD Resp: CTAB, No rhonchi or wheezing. Crackles in RLL. no increased WOB CV: RRR Assessment: Tolerating radiation therapy well overall. Treatment related imaging has been reviewed and approved Had effusion accumulating in RLL. Drained 520 mL on 03/25. Cytology showing no malignant cells Reviewed the potential toxicities and timing, Odynophagia present Re-sim done 04/23 due to substantial tumor reduction seen on CBCT Plan: Continue radiation therapy as planned, will finish Saturday. Omeprazole Rx improved reflux, MMW provided and consider sucralfate Follow-up next month or sooner if needed Thank you for allowing me to participate in the management and care of your patient. If I may answer any questions in the interim, please do not hesitate to contact me at any time. Chaitanya Luther DO, MS Public Transit Specialist, Department of Radiation Oncology [facility] 04/30/18 1041 <Electronically signed by Chaitanya Luther DO> Date Chaitanya Luther DO Cosigner Signature: Date (if applicable) CC: RADIATION ONCOLOGY Observed: 04/23/2018 Status: F Source: [place] VISIT 11:[address] 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 Plan was made to complete definitive chemoradiation therapy consisting of 6600 cGy delivered in 33 fractions. Treatment Data: Treatment Site: Right Lower Lobe of the lung Current total dose/Total dose planned: 5200 cGy / 6600 cGy Fraction number: Chemotherapy: weekly carbo/taxol (Saturday), cancelled final cycle due to neutropenia Subjective: Doing well overall, no current complaints. 03/25/18: had thoracentesis of right lung as pleural effusion was increasing and causing increased SOB. 520 mL of fluid removed, appears to be transudate. Cytology negative for malignant cells Resp: SOB stable, only with exertion. Occasional cough, no hemoptysis Swallowing: Has moderate odynophagia, no dysphagia or regurgitation, occasional GERD Energy: mild fatigue Pain: 3-4 / 10 Diet: normal without restriction, appetite normal Height/Weight/BMI: Height: 5 ft 9 in Weight: 03/19/18: 206 lbs, 03/26/18: 205 lbs, 04/02/18: 204.1 lbs, 04/09/18: 202.6, 04/16/18: 203 lbs, 04/23/18: 200 lbs) Vital Signs Temperature 97.8 F 04/23/18 10:20 Temperature Source Oral 04/23/18 10:20 Pulse Rate 81 04/23/18 10:20 Respiratory Rate 16 04/23/18 10:20 Labs: Laboratory Tests WBC 3.0 L Hgb 11.4 L Plt Count 179 Absolute Neuts (auto) 2.4 Laboratory Tests WBC 2.1 L Hgb 10.8 L Plt Count 100 L Absolute Neuts (auto) 1.6 L Laboratory Tests WBC 1.4 L* Hgb 10.5 L Plt Count 111 L Absolute Neuts (auto) 1.0 L Objective: Gen: NAD Resp: CTAB, No rhonchi or wheezing. Crackles in RLL. no increased WOB CV: RRR Assessment: Tolerating radiation therapy well overall. Treatment related imaging has been reviewed and approved Had effusion accumulating in RLL. Drained 520 mL on 03/25. Cytology showing no malignant cells Reviewed the potential toxicities and timing, Odynophagia present Re-sim done 04/23 due to substantial tumor reduction seen on CBCT Plan: Continue radiation therapy as planned Omeprazole Rx improved reflux, will add MMW and consider sucralfate Follow-up next week or sooner if needed Thank you for allowing me to participate in the management and care of your patient. If I may answer any questions in the interim, please do not hesitate to contact me at any time. Chaitanya Luther DO, MS Public Transit Specialist, Department of Radiation Oncology [facility] 04/23/18 1100 <Electronically signed by Chaitanya Luther DO> Date Chaitanya Homa SWARTZ Mahinigner Signature: Date (if applicable) CC: ONCOLOGY VISIT REPORT Observed: 04/22/2018 Status: F Source: [place] 11:10 AM [facility] REPOSITORY [facility] [place] [address] OFFICE VISIT Date of Service: 04/22/18 1032 MR#: [id number] Acct: [id number] Name: ANGEL LUIS GAUTAM Rep #: [id number] : 1950 From: Juan Carlos Plummer MD Age/Sex: 67/M Location: [facility] Status: Signed - Problem List (1) Primary cancer of right middle lobe of lung Status: Acute (2) Pleural effusion, right Status: Acute Comment: March 2018, negative cytology (3) Anemia Status: Acute - Date of Service Date of Service:: 04/22/18 - Chief Complaint Lung cancer on treatment - History of Present Illness Patient is a 67-year-old gentleman ex-smoker who started smoking around age 15 averaging 2-1/2-3 packs per day and quit in 2011 and has a baseline COPD dyslipidemia and hypertension. He was in his usual state of health until May 2017 when he experienced an episode of hemoptysis , chest x-ray showed a right middle lobe infiltrate and he was treated for pneumonia and improved. However November 2017 experienced recurrence of hemoptysis in addition to worsening dyspnea and December 11, 2017 CT scan of the chest showed a right middle lobe mass associated with complete atelectasis of the right middle lobe. January 17, 2018 bronchoscopy with EBUS: FINDINGS: The visualized oropharynx appears normal. The vocal cords appeared normal and moved normally with breathing. The subglottic space is normal. The trachea was of normal caliber. The courtney is sharp. The tracheal bronchial trees of the left and right lungs were examined to at least the first subsegmental level. There was scant mucoid secretions noted in the left lower lobe. Within the right tracheal bronchial tree, there was a fungating obstructing mass occupying the orifice of the right middle lobe and right lower lobe. Only a slitlike portion of the right lower lobe orifice could be visualized. The lesion could not be traversed with the bronchoscope. Once the airway inspection was completed, the standard bronchoscope was withdrawn and a convex probe endobronchial ultrasound (EBUS) bronchoscope was inserted through the same route. The endobronchial ultrasound endoscope was then utilized to systematically examine the superior/inferior mediastinal and hilar lymph nodes to assist with fine-needle aspiration. No significant left-sided hilar lymphadenopathy was identified. 2 small lymph nodes were identified at lymph node station #7 (subcarina) and subsequently biopsied In total, 6 transbronchial needle aspirations were completed at 2 different lymph node stations. Transbronchial needle aspiration was performed at lymph node station #7(subcarina) using an Olympus EBUS-TBNA 19-gauge needle and sent for routine cytology. The procedure was guided by ultrasound. 3 samples were obtained. Transbronchial needle aspiration was then performed of the right-sided hilar lesion which encompassed the right middle lobe and right lower lobe takeoff, using an Olympus EBUS-TBNA 19-gauge needle and sent for routine cytology. The procedure was guided by ultrasound. 3 samples were obtained. Rapid on-site evaluation (ELYSIA): Preliminary cytology was suggestive of non-small cell carcinoma. Final pathology results are pending. Following this, the EBUS endoscope was subsequently withdrawn from the patient's airway through the LMA. A conventional bronchoscope was then reinserted into the patient's airway, at which time, endobronchial biopsies were obtained from the right middle lobe orifice, where the fungating mass was most pronounced. A total of 3 endobronchial forceps biopsies were completed. Bronchial washing was completed in the bronchus intermedius. Ice cold saline was infused into the region to facilitate achieving hemostasis. All retained secretions and/or blood was cleared from the patient's airway. The bronchoscope was then withdrawn without complication. The patient was then transferred to the PACU, where they recovered in the usual fashion. IMPRESSION: 1. Large right-sided obstructing lung mass. The fungating endobronchial portions of this lesion obstructed the orifice of the right middle and right lower lobes. The lesion was not able to be traversed by the bronchoscope. 2. Subcarinal lymphadenopathy status post transbronchial needle aspiration 3. Mucoid secretions within the left lower lobe. 4. No significant left-sided hilar adenopathy was identified. Pathology: MICROSCOPIC DIAGNOSIS RML, endobronchial biopsy: Non-small cell carcinoma, favor squamous cell carcinoma DIAGNOSIS CYTOLOGY A. EBUS aspiration #1, site 7: Negative for malignant cells. Adequate for evaluation, lymphocytes present. B. EBUS aspiration #2, site 7: Negative for malignant cells. Mostly blood. A few respiratory epithelial cells. C. EBUS aspiration #3, site 7: Negative for malignant cells. Adequate for evaluation lymphocytes present. D. EBUS aspiration #4, hilar mass: Malignant cells present derived from non-small cell carcinoma. E. EBUS aspiration #5, hilar mass: Malignant cells present derived from non-small cell carcinoma. F. EBUS aspiration #6, hilar mass: Malignant cells present derived from non-small cell carcinoma. G. Site 7, TBNA, fluid (cytospin and cell block): Negative for metastatic carcinoma. See cytology study and comment. H. Hilar mass, TBNA (cytospin and cell block): Malignant cells present derived from non-small cell carcinoma, favor squamous cell carcinoma. See comment. I. RML, washing (cytospin and cell block): A few atypical squamous epithelial cells are noted. ANTIBODY / CLONE RESULT Block H AE1-3 (AE1/AE3/PCK26) positive, focal CK7 (OV-TL12/30) negative CK8 (59myqrP33) positive, focal CK20 (KS20.8) negative TTF-1 (8G7G3/1) negative Napsin A (Rabbit Polyclonal) negative HepPar (OCh1E5) negative RCC (PN-15) negative PSA (ER-PR8) negative CK5-6 (D5 AND 1684) positive P40 (BC28) positive PET CT January 27, 2018: IMPRESSION: 1. ABNORMAL EXAMINATION INDICATIVE OF MALIGNANT VIABLE NEOPLASM. 2. Increased glucose concentration identified in the right thoracic perihilum, infrahilar region fulfills quantitative criteria for viable neoplasm. (Rajiv et al, Journal of Clinical Oncology 16:2142, 1998). 3. Subtle increased glucose concentration observed in the right lower lateral hemithorax pulmonary parenchyma corresponding to apparent atelectatic change likely represents activated leukocytes associated with a localized inflammatory process-obstructive pneumonitis. 4. The increase in glucose concentration observed in the descending thoracic, as well as abdominal aorta is commensurate with activated leukocytes associated with atherosclerotic plaque formation. (Michael et al, Clinical Nuclear Medicine 29:93, 2004). 5. Asymmetric increased glucose concentration visualized in the left diaphragmatic crura is most consistent with a component muscle tension artifact. Brain MRI January 29, 2018: No evidence of metastases PFTs January 2018: INTERPRETATION: Forced expiration spirometry demonstrates the presence of a very severe large airways obstructive ventilatory defect. There was a significant response to aerosolized bronchodilators. Spirograms are of good quality and do not plateau indicating slow emptying of the lungs. Body plethysmography was performed and reveals an elevated RV to 232% of predicted, indicative of underlying air trapping. Diffusing capacity by single breath CO severely reduced at 38% of predicted. IMPRESSION: These pulmonary function studies demonstrate the presence of a partially reversible very severe large airways obstructive ventilatory defect with associated air trapping and symmetric reduction in diffusing capacity. March 04, 2018: Surgical consultation at [facility] found the patient a poor surgical candidate due to insufficient pulmonary reserve. March 27, 2018: No pleural effusion noted, diagnostic thoracocentesis was negative for malignancy. Treatment: Concomitant chemo (weekly carbotaxol X5) with radiation March 19, 2018-April 15, 2018. - Past Medical/Social History Past Medical History Cancer: Lung cancer Other Cancer History: [facility] Social History Social History: No changes Smoking Status Former smoker Review of Systems Constitutional:: Reports: Weakness, Fatigue, Appetite change - Loss of taste but maintaining a good oral intake. Denies: Fever, Sweats, Weight loss, Chills Cardiovascular:: Reports: Dyspnea on exertion. Denies: Chest pain, Palpitations, Orthopnea, PND, Shortness of breath Respiratory: Reports: Shortness of breath upon exertion. Denies: Cough, Hemoptysis, Shortness of Breath, Wheezing Gastrointestinal:: Denies: Abdominal pain, Nausea, Vomiting, Diarrhea, Constipation, Hematochezia Genitourinary: Denies: Dysuria, Hematuria, 15, Flank pain Musculoskeletal:: Denies: Back pain, Myalgia, Arthralgia Skin: Denies: Rash, Skin Changes, Wounds Neurological:: Denies: Headache, Dizziness, Visual changes, Tinnitus, Hearing loss Psychiatric: Denies: Anxiety, Depression, Homicidal Ideations, Suicidal Ideations Vital Signs Height 5 ft 9 in Weight: 92.079 kg Weight in Pounds 203.0 lbs BMI 29.9 Pulse Ox 98 - Physical Exam General: Alert, Oriented x3, No apparent distress, - - ECOG 1-2 HEENT: Atraumatic, PERRLA, EOMI, Normocephalic Oropharynx:: Dry mucosa Neck:: Supple, Trachea midline. Negative for: JVD, bilateral Cardiac:: Regular rate, Regular rhythm, Normal S1, Normal S2. Negative for: Murmur Lungs: Clear to auscultation, Excusion symmetrical. Negative for: Rhonchi, Wheezes Abdomen:: Bowel sounds x 4, Soft, Non-tender, Non-distended. Negative for: Hepatosplenomegaly Extremities:: Negative for: Cyanosis, Edema Neurological: Neuro grossly intact Skin:: Negative for: Lesions, Rash, Petechiae, Ecchymosis Psychiatric:: Appropriate affect, Euthymic Lymphatics:: Negative for: Cervical lymphadenopathy, Supraclavicular lymphadenopathy, Axillary lymphadenopathy Laboratory Data: Laboratory Tests WBC 1.4 L* Hgb 10.5 L Plt Count 111 L Absolute Neuts (auto) 1.0 L Diagnostic Data: Diagnostic Data PET, CT Tumor Imaging 01/27/18 12:45 IMPRESSION: 1. ABNORMAL EXAMINATION INDICATIVE OF MALIGNANT VIABLE NEOPLASM. 2. Increased glucose concentration identified in the right thoracic perihilum, infrahilar region fulfills quantitative criteria for viable neoplasm. (Rajiv et al, Journal of Clinical Oncology 16:2142, 1998). 3. Subtle increased glucose concentration observed in the right lower lateral hemithorax pulmonary parenchyma corresponding to apparent atelectatic change likely represents activated leukocytes associated with a localized inflammatory process-obstructive pneumonitis. 4. The increase in glucose concentration observed in the descending thoracic, as well as abdominal aorta is commensurate with activated leukocytes associated with atherosclerotic plaque formation. (Michael et al, Clinical Nuclear Medicine 29:93, 2004). 5. Asymmetric increased glucose concentration visualized in the left diaphragmatic crura is most consistent with a component muscle tension artifact. Electronic Signature Keith Patel D.O. 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 Clinical and radiologic staging is consistent with localized disease most likely IIIA (T4, Nx, M0) but patient not a surgical candidate due to poor pulmonary reserve. Started combined chemoradiation March 19, 2018. Received 5 weekly doses of carbotaxol between March 19 - April 15, 2018. A new right pleural effusion was noted March 25, underwent a diagnostic tap and cytology is negative. Comorbid conditions: COPD, hypertension and dyslipidemia. Plan: #1 chemotherapy weeks 6 will be held due to neutropenia. #2 Continue with radiation with an intent to cure. #3 follow-up in 5-6 weeks for consolidation chemotherapy with 2 cycles of carbo Taxol giving at 3 weeks intervals with growth factor support. #4 reassessment of disease status with imaging after completion of the combined chemotherapy radiation therapy phase. #5 We will assess for consolidation therapy with Durvalumab (anti-PDL 1 monoclonal antibody immune therapy) after above. Patient was seen was his impression and plan discussed. Medications: Prescriptions This Visit Medication Instructions Recorded Guaifenesin/Codeine Phosphate 10 ml PO PRN PRN 03/06/18 [Virtussin AC Liquid] Lidocaine/Prilocaine 30 gm TP DAILY PRN PRN #1 cream..g. 03/10/18 Primary Care Provider: Semaj Page MD Referring Provider: Antonio Chin DO 04/22/18 1110 <Electronically signed by Juan Carlos Plummer MD> Date Juan Carlos Plummer MD Cosigner Signature: Date (if applicable) CC: Semaj Page MD CBC W/DIFF, AUTOMATED Collected: 04/22/2018 Status: C Source: [place] 10:11 AM [facility] REPOSITORY TYPE CODE TESTS RESULT OUT OF RANGE REFERENCE UNITS LAB L100.1000 4.4-11.0 K/mm3 Low alert WBC 1.4 Result Comment: CRITICAL VALUE VERIFIED. CALLED TO [facility] AT [facility] 04/22/18 1056 Taylor Zee. RESULTS READ BACK BY SAME . AMENDED REPORT 04/22/18 1057 WBC previously reported as: 1.4 *L K/mm3 LAB L100.1200 4.6-6.2 M/mm3 Low RBC 3.65 LAB L100.1300 13.0-16.5 g/dl Low HGB 10.5 LAB L100.1400 40-54 % Low HCT 31.8 LAB L100.1500 80-94 fL Normal MCV 87.1 LAB L100.1600 27.0-32.0 pg Normal MCH 28.8 LAB L100.1700 32-36 g/gl Normal MCHC 33.0 LAB L100.1810 11.6-14.6 % High RDW 14.9 CV LAB L100.1820 35.1-43.9 fl Normal RDW 42.5 SD LAB L100.1900 150-450 K/mm3 Low PLT 111 LAB L100.2000 6.2-12.0 fl Normal MPV 8.5 LAB L100.2100 47-70 % Normal NEUT% 68.4 LAB L100.2200 19-41 % Low LY% 13.7 LAB L100.2300 0-10 % High MONO% 15.1 LAB L100.2400 0-5 % Normal EO% 1.4 LAB L100.2500 0-1 % Normal BASO% 0.7 LAB L100.2550 0.0-0.9 % Normal IM 0.700 GRAN % Result Comment: IG% - Immature Granulocytes (promyelocytes, myelocytes and metamyelocytes) > 1% indicates that a LEFT SHIFT is Present. LAB L100.2620 2.0-7.7 X10 3/uL Low Absolute Neut 1.0 LAB L100.2720 0.83-4.51 X10 3/ul Low Absolute Lymph 0.19 LAB L100.4500 Normal SMEAR COMMENT SCANNED Result Comment: DECREASED LEUKOCYTES NOTED LAB L100.7600 HYPOCHROMASIA 1+ Normal LAB L100.9900 PATH REV Normal Reviewed Result Comment: Pancytopenia. Clinical correlation necessary. Viktor Guerrero M.D. 04/24/18 AMENDED REPORT 04/24/18 1321 PATH REV previously reported as: October Performed By: #### L100.0100 #### [facility] [address] [place], [address] COMPREHENSIVE METABOLIC Collected: 04/22/2018 Status: F Source: [place] [facility] 10:11 AM [facility] REPOSITORY Order Comment: Reason for Laboratory Test Chemotherapy TYPE CODE TESTS RESULT OUT OF RANGE REFERENCE UNITS LAB L501.0100 74-106 mg/dL High GLU 115 Result Comment: Fasting Glucose result from 100 to 125 mg/dL suggests IMPAIRED HOMEOSTASIS per A.D.A. criteria. Please note revised GLUCOSE reference range effective 2017. LAB L501.1000 7-18 mg/dL Normal BUN 17 LAB L501.1100 0.70-1.30 mg/dL Normal CREAT,SERUM 1.06 Result Comment: The validity of the calculated GFR AND GFRAA in patients over 70 years has not been determined. Clinical correlation is essential. LAB L501.1110 >60 mL/min Normal EST GFR 74 Result Comment: Non- GFR Calc LAB L501.1115 >60 mL/min Normal EST GFR - AA 90 Result Comment: GFR Calc LAB L501.1255 ml/min Normal Estimated CRCL 67.62 LAB L501.1300 10-20 RATIO Normal BUN/CRE 16.0 LAB L501.1500 6.4-8. g/dL Normal 2 T PROT 6.7 LAB L501.1800 3.2-5. g/dL Low 0 ALB 2.9 LAB L501.1950 2.2-4. g/dL Normal 2 GLOB 3.8 LAB L501.2000 0.9-2. RATIO Low 4 A/G 0.8 LAB L501.2200 8.5-10 mg/dL Low .1 CA 8.2 LAB L501.4100 15-37 U/L Low AST 13 LAB L501.4305 45-117 U/L Normal ALK P 97 LAB L501.4405 16-61 U/L Normal ALT 17 LAB L501.4600 0.20-1 mg/dL Normal .00 T BILI 0.90 LAB L501.5300 136-14 mmol/L Low 5 NA 134 LAB L501.5600 3.5-5. mmol/L Low 1 K 3.4 LAB L501.5900 98-107 mmol/L Low CL 96 LAB L501.6100 21.0-3 mmol/L High 2.0 CO2 33.0 LAB L501.6200 5-15 Normal GAP 5 Performed By: #### L500.4050 #### [facility] [address] [place], [address] RADIATION ONCOLOGY Observed: 04/16/2018 Status: F Source: [place] VISIT 11:04 AM [facility] REPOSITORY [facility] [address] 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 Plan was made to complete definitive chemoradiation therapy consisting of 6600 cGy delivered in 33 fractions. Treatment Data: Treatment Site: Right Lower Lobe of the lung Current total dose/Total dose planned: 4200 cGy / 6600 cGy Fraction number: Chemotherapy: weekly carbo/taxol (Saturday) Subjective: Doing well overall, no current complaints. 03/25/18: had thoracentesis of right lung as pleural effusion was increasing and causing increased SOB. 520 mL of fluid removed, appears to be transudate. Cytology negative for malignant cells Resp: SOB stable, only with exertion. Occasional cough, no hemoptysis Swallowing: no dysphagia or odynophagia, occasional GERD Energy: mild fatigue Pain: 0 / 10 Diet: normal without restriction, appetite normal Height/Weight/BMI: Height: 5 ft 9 in Weight: 9/19/18: 206 lbs, 03/26/18: 205 lbs, 04/02/18: 204.1 lbs, 04/09/18: 202.6, 04/16/18: 203 lbs Vital Signs Temperature 97.7 F L 04/16/18 10:05 Temperature Source Oral 04/16/18 10:05 Pulse Rate 80 04/16/18 10:05 Respiratory Rate 16 04/16/18 10:05 Labs: Laboratory Tests WBC 3.0 L Hgb 11.4 L Plt Count 179 Absolute Neuts (auto) 2.4 Laboratory Tests WBC 2.1 L Hgb 10.8 L Plt Count 100 L Absolute Neuts (auto) 1.6 L Objective: Gen: NAD Resp: CTAB, No rhonchi or wheezing. Crackles in RLL. no increased WOB CV: RRR Assessment: Tolerating radiation therapy well overall. Treatment related imaging has been reviewed and approved Had effusion accumulating in RLL. Drained 520 mL on 03/25. Cytology showing no malignant cells Reviewed the potential toxicities and timing, none at this time Plan: Continue radiation therapy as planned Omeprazole Rx improved reflux Follow-up next week or sooner if needed Thank you for allowing me to participate in the management and care of your patient. If I may answer any questions in the interim, please do not hesitate to contact me at any time. Chaitanya Luther DO, MS Public Transit Specialist, Department of Radiation Oncology [facility] 04/16/18 1107 <Electronically signed by Chaitanya Luther DO> Date Chaitanya Luther DO Cosigner Signature: Date (if applicable) CC: ONCOLOGY VISIT REPORT Observed: 04/15/2018 Status: F Source: [place] 11:19 AM [facility] REPOSITORY [facility] [place] [address] OFFICE VISIT Date of Service: 04/15/18 1050 MR#: [id number] Acct: [id number] Name: ANGEL LUIS GAUTAM Rep #: [id number] : 1950 From: Juan Carlos Plummer MD Age/Sex: 67/M Location: ONC Status: Signed - Problem List (1) Primary cancer of right middle lobe of lung Status: Acute (2) Pleural effusion, right Status: Acute Comment: March 2018, negative cytology (3) Anemia Status: Acute - Date of Service Date of Service:: 04/15/18 - Chief Complaint Lung cancer on treatment - History of Present Illness Patient is a 67-year-old gentleman ex-smoker who started smoking around age 15 averaging 2-1/2-3 packs per day and quit in 2011 and has a baseline COPD dyslipidemia and hypertension. He was in his usual state of health until May 2017 when he experienced an episode of hemoptysis , chest x-ray showed a right middle lobe infiltrate and he was treated for pneumonia and improved. However November 2017 experienced recurrence of hemoptysis in addition to worsening dyspnea and December 11, 2017 CT scan of the chest showed a right middle lobe mass associated with complete atelectasis of the right middle lobe. January 17, 2018 bronchoscopy with EBUS: FINDINGS: The visualized oropharynx appears normal. The vocal cords appeared normal and moved normally with breathing. The subglottic space is normal. The trachea was of normal caliber. The courtney is sharp. The tracheal bronchial trees of the left and right lungs were examined to at least the first subsegmental level. There was scant mucoid secretions noted in the left lower lobe. Within the right tracheal bronchial tree, there was a fungating obstructing mass occupying the orifice of the right middle lobe and right lower lobe. Only a slitlike portion of the right lower lobe orifice could be visualized. The lesion could not be traversed with the bronchoscope. Once the airway inspection was completed, the standard bronchoscope was withdrawn and a convex probe endobronchial ultrasound (EBUS) bronchoscope was inserted through the same route. The endobronchial ultrasound endoscope was then utilized to systematically examine the superior/inferior mediastinal and hilar lymph nodes to assist with fine-needle aspiration. No significant left-sided hilar lymphadenopathy was identified. 2 small lymph nodes were identified at lymph node station #7 (subcarina) and subsequently biopsied In total, 6 transbronchial needle aspirations were completed at 2 different lymph node stations. Transbronchial needle aspiration was performed at lymph node station #7(subcarina) using an Olympus EBUS-TBNA 19-gauge needle and sent for routine cytology. The procedure was guided by ultrasound. 3 samples were obtained. Transbronchial needle aspiration was then performed of the right-sided hilar lesion which encompassed the right middle lobe and right lower lobe takeoff, using an Olympus EBUS-TBNA 19-gauge needle and sent for routine cytology. The procedure was guided by ultrasound. 3 samples were obtained. Rapid on-site evaluation (ELYSIA): Preliminary cytology was suggestive of non-small cell carcinoma. Final pathology results are pending. Following this, the EBUS endoscope was subsequently withdrawn from the patient's airway through the LMA. A conventional bronchoscope was then reinserted into the patient's airway, at which time, endobronchial biopsies were obtained from the right middle lobe orifice, where the fungating mass was most pronounced. A total of 3 endobronchial forceps biopsies were completed. Bronchial washing was completed in the bronchus intermedius. Ice cold saline was infused into the region to facilitate achieving hemostasis. All retained secretions and/or blood was cleared from the patient's airway. The bronchoscope was then withdrawn without complication. The patient was then transferred to the PACU, where they recovered in the usual fashion. IMPRESSION: 1. Large right-sided obstructing lung mass. The fungating endobronchial portions of this lesion obstructed the orifice of the right middle and right lower lobes. The lesion was not able to be traversed by the bronchoscope. 2. Subcarinal lymphadenopathy status post transbronchial needle aspiration 3. Mucoid secretions within the left lower lobe. 4. No significant left-sided hilar adenopathy was identified. Pathology: MICROSCOPIC DIAGNOSIS RML, endobronchial biopsy: Non-small cell carcinoma, favor squamous cell carcinoma DIAGNOSIS CYTOLOGY A. EBUS aspiration #1, site 7: Negative for malignant cells. Adequate for evaluation, lymphocytes present. B. EBUS aspiration #2, site 7: Negative for malignant cells. Mostly blood. A few respiratory epithelial cells. C. EBUS aspiration #3, site 7: Negative for malignant cells. Adequate for evaluation lymphocytes present. D. EBUS aspiration #4, hilar mass: Malignant cells present derived from non-small cell carcinoma. E. EBUS aspiration #5, hilar mass: Malignant cells present derived from non-small cell carcinoma. F. EBUS aspiration #6, hilar mass: Malignant cells present derived from non-small cell carcinoma. G. Site 7, TBNA, fluid (cytospin and cell block): Negative for metastatic carcinoma. See cytology study and comment. H. Hilar mass, TBNA (cytospin and cell block): Malignant cells present derived from non-small cell carcinoma, favor squamous cell carcinoma. See comment. I. RML, washing (cytospin and cell block): A few atypical squamous epithelial cells are noted. ANTIBODY / CLONE RESULT Block H AE1-3 (AE1/AE3/PCK26) positive, focal CK7 (OV-TL12/30) negative CK8 (54vsmwI97) positive, focal CK20 (KS20.8) negative TTF-1 (8G7G3/1) negative Napsin A (Rabbit Polyclonal) negative HepPar (OCh1E5) negative RCC (PN-15) negative PSA (ER-PR8) negative CK5-6 (D5 AND 1684) positive P40 (BC28) positive PET CT January 27, 2018: IMPRESSION: 1. ABNORMAL EXAMINATION INDICATIVE OF MALIGNANT VIABLE NEOPLASM. 2. Increased glucose concentration identified in the right thoracic perihilum, infrahilar region fulfills quantitative criteria for viable neoplasm. (Rajiv et al, Journal of Clinical Oncology 16:2142, 1998). 3. Subtle increased glucose concentration observed in the right lower lateral hemithorax pulmonary parenchyma corresponding to apparent atelectatic change likely represents activated leukocytes associated with a localized inflammatory process-obstructive pneumonitis. 4. The increase in glucose concentration observed in the descending thoracic, as well as abdominal aorta is commensurate with activated leukocytes associated with atherosclerotic plaque formation. (Handorita et al, Clinical Nuclear Medicine 29:93, 2004). 5. Asymmetric increased glucose concentration visualized in the left diaphragmatic crura is most consistent with a component muscle tension artifact. Brain MRI January 29, 2018: No evidence of metastases PFTs January 2018: INTERPRETATION: Forced expiration spirometry demonstrates the presence of a very severe large airways obstructive ventilatory defect. There was a significant response to aerosolized bronchodilators. Spirograms are of good quality and do not plateau indicating slow emptying of the lungs. Body plethysmography was performed and reveals an elevated RV to 232% of predicted, indicative of underlying air trapping. Diffusing capacity by single breath CO severely reduced at 38% of predicted. IMPRESSION: These pulmonary function studies demonstrate the presence of a partially reversible very severe large airways obstructive ventilatory defect with associated air trapping and symmetric reduction in diffusing capacity. March 04, 2018: Surgical consultation at [facility] found the patient a poor surgical candidate due to insufficient pulmonary reserve. March 27, 2018: No pleural effusion noted, diagnostic thoracocentesis was negative for malignancy. Treatment: Concomitant chemo (weekly carbotaxol) with radiation March 19, 2018- - Past Medical/Social History Past Medical History Cancer: Lung cancer Other Cancer History: BCC MULTIPLE Social History Social History: No changes Smoking Status Former smoker Review of Systems Constitutional:: Reports: Weakness, Fatigue. Denies: Fever, Sweats, Weight loss, Appetite change, Chills Cardiovascular:: Reports: Dyspnea on exertion. Denies: Chest pain, Palpitations, Orthopnea, PND, Shortness of breath Respiratory: Reports: Shortness of breath upon exertion. Denies: Cough, Hemoptysis, Shortness of Breath, Wheezing Gastrointestinal:: Denies: Abdominal pain, Nausea, Vomiting, Diarrhea, Constipation, Hematochezia Genitourinary: Denies: Dysuria, Hematuria, 15, Flank pain Musculoskeletal:: Denies: Back pain, Myalgia, Arthralgia Skin: Denies: Rash, Skin Changes, Wounds Neurological:: Denies: Headache, Dizziness, Visual changes, Tinnitus, Hearing loss Psychiatric: Denies: Anxiety, Depression, Homicidal Ideations, Suicidal Ideations Vital Signs Height 5 ft 9 in Weight: 91.898 kg Weight in Pounds 202.6 lbs BMI 29.9 Pulse Ox 95 - Physical Exam General: Alert, Oriented x3, No apparent distress, - - ECOG 1-2 HEENT: Atraumatic, PERRLA, EOMI, Normocephalic Oropharynx:: Dry mucosa Neck:: Supple, Trachea midline, - - Port okay. Negative for: JVD, bilateral Cardiac:: Regular rate, Regular rhythm, Normal S1, Normal S2. Negative for: Murmur Lungs: Clear to auscultation, Diminished, Excusion symmetrical. Negative for: Rhonchi, Wheezes Abdomen:: Soft, Non-tender, Non-distended. Negative for: Hepatosplenomegaly Extremities:: Negative for: Cyanosis, Edema Neurological: Neuro grossly intact Skin:: Negative for: Lesions, Rash, Petechiae, Ecchymosis Psychiatric:: Appropriate affect, Euthymic Lymphatics:: Negative for: Cervical lymphadenopathy, Supraclavicular lymphadenopathy Diagnostic Data: Diagnostic Data PET, CT Tumor Imaging 01/27/18 12:45 IMPRESSION: 1. ABNORMAL EXAMINATION INDICATIVE OF MALIGNANT VIABLE NEOPLASM. 2. Increased glucose concentration identified in the right thoracic perihilum, infrahilar region fulfills quantitative criteria for viable neoplasm. (Rajiv zazueta al, Journal of Clinical Oncology 16:2142, 1997). 3. Subtle increased glucose concentration observed in the right lower lateral hemithorax pulmonary parenchyma corresponding to apparent atelectatic change likely represents activated leukocytes associated with a localized inflammatory process-obstructive pneumonitis. 4. The increase in glucose concentration observed in the descending thoracic, as well as abdominal aorta is commensurate with activated leukocytes associated with atherosclerotic plaque formation. (Michael et al, Clinical Nuclear Medicine 29:93, 2003). 5. Asymmetric increased glucose concentration visualized in the left diaphragmatic crura is most consistent with a component muscle tension artifact. Electronic Signature Keith Patel D.O. 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 Clinical and radiologic staging is consistent with an early stage localized disease but patient not a surgical candidate due to poor pulmonary reserve. Started combined chemoradiation March 19, 2018. A new right pleural effusion was noted March 25, underwent a diagnostic tap and cytology is negative. Weight loss noted week 3 of treatment, appetite for food is still preserved and no nausea vomiting or dysphagia. Comorbid conditions: COPD, hypertension and dyslipidemia. Plan: Continue with combined chemoradiation with an intent to cure. Diet and supplements reviewed and encouraged to take nutrition supplements on high calorie food. Patient was seen was his impression and plan discussed. Medications: Prescriptions This Visit Medication Instructions Recorded Guaifenesin/Codeine Phosphate 10 ml PO PRN PRN 03/06/18 [Virtussin AC Liquid] Lidocaine/Prilocaine 30 gm TP DAILY PRN PRN #1 cream..g. 03/10/18 Primary Care Provider: Semaj Page MD Referring Provider: Antonio Chin DO 04/15/18 1119 <Electronically signed by Juan Carlos Plummer MD> Date Juan Carlos Plummer MD Cosigner Signature: Date (if applicable) CC: CBC W/DIFF, AUTOMATED Collected: 04/15/2018 Status: F Source: [place] 10:35 AM [facility] REPOSITORY TYPE CODE TESTS RESULT OUT OF RANGE REFERENCE UNITS LAB L100.1000 4.4-11.0 K/mm3 Low WBC 2.1 LAB L100.1200 4.6-6.2 M/mm3 Low RBC 3.91 LAB L100.1300 13.0-16.5 g/dl Low HGB 10.8 LAB L100.1400 40-54 % Low HCT 33.8 LAB L100.1500 80-94 fL Normal MCV 86.4 LAB L100.1600 27.0-32.0 pg Normal MCH 27.6 LAB L100.1700 32-36 g/gl Normal MCHC 32.0 LAB L100.1810 11.6-14.6 % Normal RDW CV 14.6 LAB L100.1820 35.1-43.9 fl Normal RDW SD 43.4 LAB L100.1900 150-450 K/mm3 Low PLT 100 LAB L100.2000 6.2-12.0 fl Normal MPV 9.0 LAB L100.2100 47-70 % High NEUT% 75.7 LAB L100.2200 19-41 % Low LY% 12.9 LAB L100.2300 0-10 % Normal MONO% 9.5 LAB L100.2400 0-5 % Normal EO% 1.4 LAB L100.2500 0-1 % Normal BASO% 0.5 LAB L100.2550 0.0-0.9 % Normal IM GRAN % 0.000 Result Comment: IG% - Immature Granulocytes (promyelocytes, myelocytes and metamyelocytes) > 1% indicates that a LEFT SHIFT is Present. LAB L100.2620 2.0-7.7 X10 3/uL Low Absolute Neut 1.6 LAB L100.2720 0.83-4.51 X10 3/ul Low Absolute Lymph 0.27 LAB L100.4500 Normal SMEAR COMMENT COMMENT Result Comment: SLIDE SCANNED - LYMPHOPENIA NOTED. Performed By: #### L100.0100 #### [facility] [address] [place], [address] COMPREHENSIVE METABOLIC Collected: 04/15/2018 Status: F Source: [facility] 10:35 AM [facility] REPOSITORY Order Comment: Reason for Laboratory Test Chemotherapy TYPE CODE TESTS RESULT OUT OF RANGE REFERENCE UNITS LAB L501.0100 74-106 mg/dL Normal GLU 105 Result Comment: Fasting Glucose result from 100 to 125 mg/dL suggests IMPAIRED HOMEOSTASIS per A.D.A. criteria. Please note revised GLUCOSE reference range effective 2017. LAB L501.1000 7-18 mg/dL Normal BUN 13 LAB L501.1100 0.70-1.30 mg/dL Normal CREAT,SERUM 0.91 Result Comment: The validity of the calculated GFR AND GFRAA in patients over 70 years has not been determined. Clinical correlation is essential. LAB L501.1110 >60 mL/min Normal EST GFR 88 Result Comment: Non- GFR Calc LAB L501.1115 >60 mL/min Normal EST GFR - AA 107 Result Comment: GFR Calc LAB L501.1255 ml/min Normal Estimated CRCL 78.77 LAB L501.1300 10-20 RATIO Normal BUN/CRE 14.3 LAB L501.1500 6.4-8. g/dL Normal 2 T PROT 6.6 LAB L501.1800 3.2-5. g/dL Low 0 ALB 2.8 LAB L501.1950 2.2-4. g/dL Normal 2 GLOB 3.8 LAB L501.2000 0.9-2. RATIO Low 4 A/G 0.7 LAB L501.2200 8.5-10 mg/dL Low .1 CA 8.4 LAB L501.4100 15-37 U/L Low AST 13 LAB L501.4305 45-117 U/L Normal ALK P 99 LAB L501.4405 16-61 U/L Normal ALT 18 LAB L501.4600 0.20-1 mg/dL Normal .00 T BILI 0.80 LAB L501.5300 136-14 mmol/L Normal 5 NA 136 LAB L501.5600 3.5-5. mmol/L Low 1 K 3.4 LAB L501.5900 98-107 mmol/L Normal CL 98 LAB L501.6100 21.0-3 mmol/L Normal 2.0 CO2 29.0 LAB L501.6200 5-15 Normal GAP 9 Performed By: #### L500.4050 #### [facility] [address] [place], [address] RADIATION ONCOLOGY Observed: 04/09/2018 Status: F Source: [place] VISIT 10:57 AM [facility] REPOSITORY [facility] [address] 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 Plan was made to complete definitive chemoradiation therapy consisting of 6600 cGy delivered in 33 fractions. Treatment Data: Treatment Site: Right Lower Lobe of the lung Current total dose/Total dose planned: 3200 cGy / 6600 cGy Fraction number: Chemotherapy: weekly carbo/taxol (Saturday) Subjective: Doing well overall, no current complaints. 03/25/18: had thoracentesis of right lung as pleural effusion was increasing and causing increased SOB. 520 mL of fluid removed, appears to be transudate. Cytology negative for malignant cells Resp: SOB stable, only with exertion. No cough or hemoptysis Swallowing: no dysphagia or odynophagia, occasional GERD Energy: mild fatigue Pain: 0 / 10 Height/Weight/BMI: Height: 5 ft 9 in Weight: 03/19/18: 206 lbs, 03/26/18: 205 lbs, 04/02/18: 204.1 lbs, 04/09/18: 202.6 Vital Signs Temperature 97.6 F L 04/09/18 10:30 Temperature Source Oral 04/09/18 10:30 Pulse Rate 79 04/09/18 10:30 Respiratory Rate 16 04/09/18 10:30 Labs: Laboratory Tests WBC 3.0 L Hgb 11.4 L Plt Count 179 Absolute Neuts (auto) 2.4 Objective: Gen: NAD Resp: CTAB, Rhonchi right middle and lower lobes, no wheezing. Crackles in RLL. no increased WOB CV: RRR Assessment: Tolerating radiation therapy well overall. Treatment related imaging has been reviewed and approved Had effusion accumulating in RLL. Drained 520 mL on 03/25. Cytology showing no malignant cells Reviewed the potential toxicities and timing, none noted at this time Plan: Continue radiation therapy as planned Omeprazole Rx improved reflux Follow-up next week or sooner if needed Thank you for allowing me to participate in the management and care of your patient. If I may answer any questions in the interim, please do not hesitate to contact me at any time. Chaitanya Luther DO, MS [employer] Specialist, Department of Radiation Oncology [facility] 04/09/18 1057 <Electronically signed by Chaitanya Luther DO> Date Chaitanya Grandeignusman Signature: Date (if applicable) CC: ONCOLOGY VISIT REPORT Observed: 04/08/2018 Status: F Source: [place] 10:30 AM [facility] REPOSITORY [facility] [place] [address] OFFICE VISIT Date of Service: 04/08/18 1028 MR#: [id number] Acct: [id number] Name: ANGEL LUIS GAUTAM Rep #: [id number] : 1950 From: Juan Carlos Plummer MD Age/Sex: 67/M Location: OMD Status: Signed - Problem List (1) Primary cancer of right middle lobe of lung Status: Acute (2) Pleural effusion, right Status: Acute Comment: March 2018, negative cytology (3) Anemia Status: Acute - Date of Service Date of Service:: 04/08/18 - Chief Complaint Lung cancer on treatment - History of Present Illness Patient is a 67-year-old gentleman ex-smoker who started smoking around age 15 averaging 2-1/2-3 packs per day and quit in 2011 and has a baseline COPD dyslipidemia and hypertension. He was in his usual state of health until May 2017 when he experienced an episode of hemoptysis , chest x-ray showed a right middle lobe infiltrate and he was treated for pneumonia and improved. However November 2017 experienced recurrence of hemoptysis in addition to worsening dyspnea and December 11, 2017 CT scan of the chest showed a right middle lobe mass associated with complete atelectasis of the right middle lobe. January 17, 2018 bronchoscopy with EBUS: FINDINGS: The visualized oropharynx appears normal. The vocal cords appeared normal and moved normally with breathing. The subglottic space is normal. The trachea was of normal caliber. The courtney is sharp. The tracheal bronchial trees of the left and right lungs were examined to at least the first subsegmental level. There was scant mucoid secretions noted in the left lower lobe. Within the right tracheal bronchial tree, there was a fungating obstructing mass occupying the orifice of the right middle lobe and right lower lobe. Only a slitlike portion of the right lower lobe orifice could be visualized. The lesion could not be traversed with the bronchoscope. Once the airway inspection was completed, the standard bronchoscope was withdrawn and a convex probe endobronchial ultrasound (EBUS) bronchoscope was inserted through the same route. The endobronchial ultrasound endoscope was then utilized to systematically examine the superior/inferior mediastinal and hilar lymph nodes to assist with fine-needle aspiration. No significant left-sided hilar lymphadenopathy was identified. 2 small lymph nodes were identified at lymph node station #7 (subcarina) and subsequently biopsied In total, 6 transbronchial needle aspirations were completed at 2 different lymph node stations. Transbronchial needle aspiration was performed at lymph node station #7(subcarina) using an Olympus EBUS-TBNA 19-gauge needle and sent for routine cytology. The procedure was guided by ultrasound. 3 samples were obtained. Transbronchial needle aspiration was then performed of the right-sided hilar lesion which encompassed the right middle lobe and right lower lobe takeoff, using an Olympus EBUS-TBNA 19-gauge needle and sent for routine cytology. The procedure was guided by ultrasound. 3 samples were obtained. Rapid on-site evaluation (ELYSIA): Preliminary cytology was suggestive of non-small cell carcinoma. Final pathology results are pending. Following this, the EBUS endoscope was subsequently withdrawn from the patient's airway through the LMA. A conventional bronchoscope was then reinserted into the patient's airway, at which time, endobronchial biopsies were obtained from the right middle lobe orifice, where the fungating mass was most pronounced. A total of 3 endobronchial forceps biopsies were completed. Bronchial washing was completed in the bronchus intermedius. Ice cold saline was infused into the region to facilitate achieving hemostasis. All retained secretions and/or blood was cleared from the patient's airway. The bronchoscope was then withdrawn without complication. The patient was then transferred to the PACU, where they recovered in the usual fashion. IMPRESSION: 1. Large right-sided obstructing lung mass. The fungating endobronchial portions of this lesion obstructed the orifice of the right middle and right lower lobes. The lesion was not able to be traversed by the bronchoscope. 2. Subcarinal lymphadenopathy status post transbronchial needle aspiration 3. Mucoid secretions within the left lower lobe. 4. No significant left-sided hilar adenopathy was identified. Pathology: MICROSCOPIC DIAGNOSIS RML, endobronchial biopsy: Non-small cell carcinoma, favor squamous cell carcinoma DIAGNOSIS CYTOLOGY A. EBUS aspiration #1, site 7: Negative for malignant cells. Adequate for evaluation, lymphocytes present. B. EBUS aspiration #2, site 7: Negative for malignant cells. Mostly blood. A few respiratory epithelial cells. C. EBUS aspiration #3, site 7: Negative for malignant cells. Adequate for evaluation lymphocytes present. D. EBUS aspiration #4, hilar mass: Malignant cells present derived from non-small cell carcinoma. E. EBUS aspiration #5, hilar mass: Malignant cells present derived from non-small cell carcinoma. F. EBUS aspiration #6, hilar mass: Malignant cells present derived from non-small cell carcinoma. G. Site 7, TBNA, fluid (cytospin and cell block): Negative for metastatic carcinoma. See cytology study and comment. H. Hilar mass, TBNA (cytospin and cell block): Malignant cells present derived from non-small cell carcinoma, favor squamous cell carcinoma. See comment. I. RML, washing (cytospin and cell block): A few atypical squamous epithelial cells are noted. ANTIBODY / CLONE RESULT Block H AE1-3 (AE1/AE3/PCK26) positive, focal CK7 (OV-TL12/30) negative CK8 (29ytnsU50) positive, focal CK20 (KS20.8) negative TTF-1 (8G7G3/1) negative Napsin A (Rabbit Polyclonal) negative HepPar (OCh1E5) negative RCC (PN-15) negative PSA (ER-PR8) negative CK5-6 (D5 AND 1684) positive P40 (BC28) positive PET CT January 27, 2018: IMPRESSION: 1. ABNORMAL EXAMINATION INDICATIVE OF MALIGNANT VIABLE NEOPLASM. 2. Increased glucose concentration identified in the right thoracic perihilum, infrahilar region fulfills quantitative criteria for viable neoplasm. (Rajiv et al, Journal of Clinical Oncology 16:2142, 1998). 3. Subtle increased glucose concentration observed in the right lower lateral hemithorax pulmonary parenchyma corresponding to apparent atelectatic change likely represents activated leukocytes associated with a localized inflammatory process-obstructive pneumonitis. 4. The increase in glucose concentration observed in the descending thoracic, as well as abdominal aorta is commensurate with activated leukocytes associated with atherosclerotic plaque formation. (Michael et al, Clinical Nuclear Medicine 29:93, 2004). 5. Asymmetric increased glucose concentration visualized in the left diaphragmatic crura is most consistent with a component muscle tension artifact. Brain MRI January 29, 2018: No evidence of metastases PFTs January 2018: INTERPRETATION: Forced expiration spirometry demonstrates the presence of a very severe large airways obstructive ventilatory defect. There was a significant response to aerosolized bronchodilators. Spirograms are of good quality and do not plateau indicating slow emptying of the lungs. Body plethysmography was performed and reveals an elevated RV to 232% of predicted, indicative of underlying air trapping. Diffusing capacity by single breath CO severely reduced at 38% of predicted. IMPRESSION: These pulmonary function studies demonstrate the presence of a partially reversible very severe large airways obstructive ventilatory defect with associated air trapping and symmetric reduction in diffusing capacity. March 04, 2018: Surgical consultation at [facility] found the patient a poor surgical candidate due to insufficient pulmonary reserve. March 27, 2018: No pleural effusion noted, diagnostic thoracocentesis was negative for malignancy. Treatment: Concomitant chemo (weekly carbotaxol) with radiation March 19, 2018- - Past Medical/Social History Past Medical History Cancer: Lung cancer Other Cancer History: BCC MULTIPLE Social History Social History: No changes Smoking Status Former smoker Review of Systems Constitutional:: Reports: Fatigue, Weight loss. Denies: Fever, Sweats, Appetite change, Chills Cardiovascular:: Reports: Dyspnea on exertion. Denies: Chest pain, Palpitations, Orthopnea, PND, Shortness of breath Respiratory: Reports: Shortness of breath upon exertion. Denies: Cough, Hemoptysis, Shortness of Breath, Wheezing Gastrointestinal:: Denies: Abdominal pain, Nausea, Vomiting, Diarrhea, Constipation, Hematochezia Genitourinary: Denies: Dysuria, Hematuria, 15, Flank pain Musculoskeletal:: Denies: Back pain, Myalgia, Arthralgia Skin: Denies: Rash, Skin Changes, Wounds Neurological:: Denies: Headache, Dizziness, Visual changes, Tinnitus, Hearing loss Psychiatric: Denies: Anxiety, Depression, Homicidal Ideations, Suicidal Ideations Vital Signs Height 5 ft 9 in Weight: 89.993 kg Weight in Pounds 198.4 lbs BMI 29.9 Pulse Ox 97 - Physical Exam General: Alert, Oriented x3, No apparent distress, - - ECOG 1 HEENT: Atraumatic, PERRLA, EOMI, Normocephalic Oropharynx:: Dry mucosa Neck:: Supple, Trachea midline, - - Port okay. Negative for: JVD, bilateral Cardiac:: Regular rate, Regular rhythm, Normal S1, Normal S2. Negative for: Murmur Lungs: Clear to auscultation, Excusion symmetrical. Negative for: Rhonchi, Wheezes Abdomen:: Soft, Non-tender, Non-distended. Negative for: Hepatosplenomegaly Extremities:: Negative for: Cyanosis, Edema Neurological: Neuro grossly intact Skin:: Negative for: Lesions, Rash, Petechiae, Ecchymosis Psychiatric:: Appropriate affect, Euthymic Lymphatics:: Negative for: Cervical lymphadenopathy, Supraclavicular lymphadenopathy Laboratory Data: Laboratory Tests WBC 3.0 L (4.4-11.0) K/mm3 RBC 4.15 L (4.6-6.2) M/mm3 Hgb 11.4 L (13.0-16.5) g/dl Diagnostic Data: Diagnostic Data PET, CT Tumor Imaging 01/27/18 12:45 IMPRESSION: 1. ABNORMAL EXAMINATION INDICATIVE OF MALIGNANT VIABLE NEOPLASM. 2. Increased glucose concentration identified in the right thoracic perihilum, infrahilar region fulfills quantitative criteria for viable neoplasm. (Rajiv et al, Journal of Clinical Oncology 16:2142, 1997). 3. Subtle increased glucose concentration observed in the right lower lateral hemithorax pulmonary parenchyma corresponding to apparent atelectatic change likely represents activated leukocytes associated with a localized inflammatory process-obstructive pneumonitis. 4. The increase in glucose concentration observed in the descending thoracic, as well as abdominal aorta is commensurate with activated leukocytes associated with atherosclerotic plaque formation. (Michael et al, Clinical Nuclear Medicine 29:93, 2004). 5. Asymmetric increased glucose concentration visualized in the left diaphragmatic crura is most consistent with a component muscle tension artifact. Electronic Signature Keith Patel D.O. 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 Clinical and radiologic staging is consistent with an early stage localized disease but patient not a surgical candidate due to poor pulmonary reserve. Started combined chemoradiation March 19, 2018. A new right pleural effusion was noted March 25, underwent a diagnostic tap and cytology is negative. Weight loss noted week 3 of treatment, appetite for food is still preserved and no nausea vomiting or dysphagia. Comorbid conditions: COPD, hypertension and dyslipidemia. Plan: Continue with combined chemoradiation with an intent to cure. Diet and supplements reviewed and encouraged to take nutrition supplements on high calorie food. Patient was seen was his impression and plan discussed. Medications: Prescriptions This Visit Medication Instructions Recorded Guaifenesin/Codeine Phosphate 10 ml PO PRN PRN 03/06/18 [Virtussin AC Liquid] Lidocaine/Prilocaine 30 gm TP DAILY PRN PRN #1 cream..g. 03/10/18 Primary Care Provider: Semaj Page MD Referring Provider: Antonio Chin DO 04/08/18 1030 <Electronically signed by Juan Carlos Plummer MD> Date Juan Carlos Plummer MD Cosigner Signature: Date (if applicable) CC: CBC W/DIFF, AUTOMATED Collected: 04/08/2018 Status: C Source: [place] 9:39 AM [facility] REPOSITORY TYPE CODE TESTS RESULT OUT OF RANGE REFERENCE UNITS LAB L100.1000 4.4-11.0 K/mm3 Low WBC 3.0 LAB L100.1200 4.6-6.2 M/mm3 Low RBC 4.15 LAB L100.1300 13.0-16.5 g/dl Low HGB 11.4 LAB L100.1400 40-54 % Low HCT 35.6 LAB L100.1500 80-94 fL Normal MCV 85.8 LAB L100.1600 27.0-32.0 pg Normal MCH 27.5 LAB L100.1700 32-36 g/gl Normal MCHC 32.0 LAB L100.1810 11.6-14.6 % Normal RDW CV 14.0 LAB L100.1820 35.1-43.9 fl Normal RDW SD 42.4 LAB L100.1900 150-450 K/mm3 Normal PLT 179 LAB L100.2000 6.2-12.0 fl Normal MPV 8.6 LAB L100.2100 47-70 % High NEUT% 80.8 LAB L100.2200 19-41 % Low LY% 17.2 LAB L100.2300 0-10 % Normal MONO% 1.0 LAB L100.2400 0-5 % Normal EO% 0.7 LAB L100.2500 0-1 % Normal BASO% 0.3 LAB L100.2550 0.0-0.9 % Normal IM GRAN % 0.000 Result Comment: IG% - Immature Granulocytes (promyelocytes, myelocytes and metamyelocytes) > 1% indicates that a LEFT SHIFT is Present. LAB L100.2620 2.0-7.7 X10 3/uL Normal Absolute Neut 2.4 LAB L100.2720 0.83-4.51 X10 3/ul Low Absolute Lymph 0.51 LAB L100.9900 Normal PATH REV Reviewed Result Comment: Leukopenia Clinical correlation necessary. Viktor Guerrero M.D. 04/10/18 AMENDED REPORT 04/10/18 1009 PATH REV previously reported as: Gisella aguirre Performed By: #### L100.0100 #### [facility] [address] [place], [address] COMPREHENSIVE METABOLIC Collected: 04/08/2018 Status: F Source: [facility] 9:38 AM [facility] REPOSITORY Order Comment: Reason for Laboratory Test Chemotherapy TYPE CODE TESTS RESULT OUT OF RANGE REFERENCE UNITS LAB L501.0100 74-106 mg/dL Normal GLU 94 Result Comment: Please note revised GLUCOSE reference range effective 2017. LAB L501.1000 7-18 mg/dL High BUN 20 LAB L501.1100 0.70-1.30 mg/dL Normal CREAT,SERUM 0.99 Result Comment: The validity of the calculated GFR AND GFRAA in patients over 70 years has not been determined. Clinical correlation is essential. LAB L501.1110 >60 mL/min Normal EST GFR 80 Result Comment: Non- GFR Calc LAB L501.1115 >60 mL/min Normal EST GFR - AA 97 Result Comment: GFR Calc LAB L501.1255 ml/min Normal Estimated CRCL 72.41 LAB L501.1300 10-20 RATIO High BUN/CRE 20.3 LAB L501.1500 6.4-8. g/dL Normal 2 T PROT 7.0 LAB L501.1800 3.2-5. g/dL Low 0 ALB 2.9 LAB L501.1950 2.2-4. g/dL Normal 2 GLOB 4.1 LAB L501.2000 0.9-2. RATIO Low 4 A/G 0.7 LAB L501.2200 8.5-10 mg/dL Normal .1 CA 8.8 LAB L501.4100 15-37 U/L Low AST 11 LAB L501.4305 45-117 U/L Normal ALK P 103 LAB L501.4405 16-61 U/L Normal ALT 18 LAB L501.4600 0.20-1 mg/dL Normal .00 T BILI 0.70 LAB L501.5300 136-14 mmol/L Low 5 NA 135 LAB L501.5600 3.5-5. mmol/L Normal 1 K 3.7 LAB L501.5900 98-107 mmol/L Low CL 97 LAB L501.6100 21.0-3 mmol/L Normal 2.0 CO2 30.0 LAB L501.6200 5-15 Normal GAP 8 Performed By: #### L500.4050 #### [facility] [address] [place], [place], [address] PULMONARY VISIT REPORT Observed: 04/08/2018 Status: F Source: [place] 8:44 AM [facility] REPOSITORY [facility] [place] [id number] [place] [address] OFFICE VISIT Date of Service: 04/08/18 MR#: [id number] Acct: [id number] Name: RAMEZANGEL LUIS E Rep #: [id number] : 1950 Provider: Karen Desir Age/Sex: 67/M Location[place] [facility] [place] Status: Signed Assessment AND Plan Problems 1. Stage 4 very severe COPD by GOLD classification J44.9 Plan Does not appear to be an exacerbation of COPD today. No need for prednisone or antibiotic. Continue current maintenance medication. No additional testing at this time. Contact the office for any new or worsening symptoms. An acute visit and typically be arranged within 1-2 days. Follow-up in 3 mos. Medications New: albuterol sulfate HFA 90 mcg/actuation (Vento2 puffs Inhalation Q4H PRN 3 ea 3RF shortnes viri HFA) s of breath or wheezing Plan Detail Follow Up 3 Months (DMB) HPI 1 M FU: Chief Complaint: none HPI Comments Details: This patient presents to the office today to follow- up after recently being started on a new medication. He is ambulatory, on room air and accompanied by his . Patient has not been seen in the ED/urgent care for respiratory illnesses since his last office visit. He has not required any antibiotics or prednisone for any breathing problems. He continues to experience dyspnea on exertion, however since the institution of stiolto he believes that his shortness of breath on exertion has improved. He denies any shortness of breath with rest or during conversation. He has an occasional dry cough, denies any sputum production or hemoptysis. He denies any fever, chills or body aches. He denies any wheezing, chest tightness, chest pain or palpitations. See complete review of systems. He continues compliance with chemo and radiation as prescribed by his oncologist and radiation oncologist. He continues to use Mucinex twice daily. He has not needed to use his rescue inhaler as frequently since beginning the new medication. He denies any medication side effects such as sore throat or hoarseness. Intake Vital Signs04/08/18 Height 5 ft 9 in 04/08/18 Weight: 198 lb Intake Visit Reasons: 1 M FU [employer] Work[employer] Required: No Accompanied by: Is patient in pain?: No Allergies No Known Allergies Allergy (Verified 04/08/18 06:49) Medications Hydrochlorothiazide [Hctz] 25 mg PO DAILY 06/16/17 [History Confirmed 04/08/18] Metoprolol Tartrate [Lopressor (beta shorty)] 50 mg PO BID 06/16/17 [History Confirmed 04/08/18] Simvastatin [Zocor] 40 mg PO QHS 06/16/17 [History Confirmed 04/08/18] [place]-3 Fatty Acids/Fish Oil [Fish Oil 1,000 mg Capsule] 1 ea PO DAILY 12/11/17 [History Confirmed 04/08/18] Albuterol IH (ProAir) [Proair Hfa] 1 puff INHALATION Q4H PRN PRN #1 inhaler 12/12/17 [Rx Confirmed 04/08/18] Guaifenesin [Mucinex] 1,200 mg PO BID 01/14/18 [History Confirmed 04/08/18] tiotropium 2.5 mcg-olodaterol 2.5 mcg/actuation mist for inhalation 2 puff INHALATION Q24H #4 g 03/04/18 [Rx Confirmed 04/08/18] Guaifenesin/Codeine Phosphate [Virtussin AC Liquid] 10 ml PO PRN PRN 03/06/18 [History Confirmed 04/08/18] Lidocaine/Prilocaine [Lidocaine-Prilocaine Cream] 30 gm TP DAILY PRN PRN #1 cream..g. 03/10/18 [Rx Confirmed 04/08/18] Ondansetron [Zofran Odt] 4 mg PO Q8H PRN PRN 10 Days #30 tab.rapdis 03/10/18 [Rx Confirmed 04/08/18] Oxycodone HCl/Acetaminophen [Percocet 5/325] 1 - 2 tab PO Q4H PRN PRN 5 Days #30 tab 03/18/18 [Rx Confirmed 04/08/18] Omeprazole [Prilosec] 20 mg PO DAILY #30 cap 04/02/18 [Rx Confirmed 04/08/18] albuterol sulfate HFA 90 mcg/actuation aerosol inhaler 2 puff INHALATION Q4H PRN #3 ea 04/08/18 [Rx Confirmed 04/08/18] PFSH Medical History Primary cancer of right middle lobe of lung (Acute) Stage 4 very severe COPD by GOLD classification (Chronic) Tobacco abuse, in remission (Chronic) Educational circumstance (Acute) Hypertension (Chronic) Hyperlipidemia (Chronic) Hemoptysis (Acute) Pneumonia (Acute) Surgical History H/O hernia repair (Resolved) EBUS (Resolved) Family History Father Myocardial infarction Hypertension Mother Pneumonia Social History Smoking Status: Former smoker quit date: 07/01/11 pack-years: 80 alcohol intake: current alcohol intake frequency: holidays/special occasions only substance use type: does not use Review of Systems Const CONSTITUTIONAL: Positive fatigue; negative anorexia, body ache, chills, daytime sleepiness, fever(s), night sweats, oral thrush, stops breathing during sleep, weight loss, sleeping in chair, weight loss, weight gain, frequent colds, seasonal allergies, other, headache(s) or orthopnea EETM Ear Nose Throat Mouth: Positive hearing normal, nasal discharge (in AM) and post nasal drip; negative hard of hearing, hoarseness, dry mouth in morning, change in vision, itchy eyes, eye pain, swallowing Difficulty, ear pain, nose bleed, headache(s), mouth pain, nasal congestion, sinus pain, sinus pressure, sore throat or other Cardio Cardiovascular: Negative chest pain, chest pain at rest, chest pain with activity, irregular heart rhythm, edema, shortness of breath when lying down, palpitations, murmur or other Resp Respiratory: Positive as per HPI, shortness of breath shortness of breath: Positive with activity, cough cough: Positive non-productive and inhalers; negative pain with cough, wheezing, chest congestion, chest tightness, pain on inspiration, increase use of rescue inhalers, snoring, apnea or other Gastro Gastrointestional: Negative bloody stools, change in appetite, difficulty swallowing, reflux, hematemesis, melena stool, loose stool, constipation or other Genitourinary: Negative blood in urine, nocturia, pain with urination or other Musc Musculoskeletal: Negative body pain, back pain, neck pain or other Skin/Breast Skin/Breast: Negative dry skin, itching, rash, unusual bruising, breast lump or other Neuro Neurological: Negative restless legs, confusion, weakness or other Psych Psychocological: Negative abnormal sleep pattern, anxiety, thoughts of hurting self/others, hopelessness or other Lymph Lymphatic: Negative easy bleeding, easy bruising, swollen lymph nodes or other Exam Const Constitutional: Positive conversant, cooperative, in no acute respiratory distress, healthy appearing, well developed, well nourished and good hygiene Head Head: Positive normocephalic and atraumatic; negative cyanosis of lips/distal nose Eyes Eye: Positive clear conjunctiva; negative nystagmus or scleral abnormality Ears Ear: Positive hearing normal and external ears normal; negative hard of hearing Nose Nose: Positive external nose normal and no nasal discharge; negative epistaxis Mouth Mouth: Positive post nasal drip, oral mucosae normal, no lesions and good dentition; negative malodorous breath or oral thrush present Mallampati Score: I: Mallampati Score Neck Neck: Positive normal visual inspection, full ROM and trachea midline; negative lymphadenopathy, JVD or tender Chest Wall Chest: Positive symmetric chest movement and increased A/P diameter Resp lung sounds: Positive clear to auscultation, good air exchange, normal expiratory time and normal respiratory effort; negative diminished, wheezes, rhonchi, rales, dullness to percussion or wheeze present on forced exhalation Cardio Cardiac: Positive regular rate, regular rhythm, S1 normal and S2 normal; negative murmur GI GI: Positive normal to inspection; negative distended Genitourinary: Positive deferred Musc Musculoskeletal: Positive steady gait and ROM normal; negative kyphosis or scoliosis Skin Pulmonary Skin Exam: Positive intact; negative rash, lesion, ulcers or erythema Pulses Pulse: Yes pulses normal x4 extremities Extremities Extremities: Yes capillary refill normal, No clubbing, No cyanosis, No edema Neuro Neurologic: Yes conversant, Yes no focal neuro deficits, Yes normal concentration, Yes understands questions, Yes cooperative, Yes normal cognition, Yes normal coordination Lymph Lymphatic: No lymphadenopathy, No tenderness, No cervical adenopathy Psych Appearance: Positive grossly normal, eye contact and well kempt Mental Status: Positive mental status grossly normal Mood: Positive congruent mood Affect: Positive normal affect Coding Level of Care Code Off vis,est,level 3 Diagnoses Stage 4 very severe COPD by GOLD classification J44.9 04/08/18 0844 <Electronically signed by Karen PALACIOS> Date Karen PALACIOS Cosigner Signature: Date (if applicable) CC: Semaj HUNG Observed: 04/08/2018 Status: COMPLETED Source: [place] 12:00 AM [facility] REPOSITORY Telephone ([facility] ANGEL LUIS GAUTAM ([id number]) 1950 M Date Time Provider Department 04/08/18 SEMAJ PAGE During your visit today, we recorded the following information about you: Allergies As of Date: 04/08/2018 (No Known Allergies) Date Reviewed: 02/05/2018 Reviewed by: Semaj Page - Fully Assessed Reason for Visit: Outside Qxis-Dtr-[id number] Ordered [1005] Order(s):CMP (EXTERNAL) [9023281] Order #: [id number] CBCDIF (EXTERNAL) [[id number]] Order #: [id number] CMP (EXTERNAL) [[id number]] Order #: [id number] CBCDIF (EXTERNAL) [[id number]] Order #: [id number] CMP (EXTERNAL) [[id number]] Order #: [id number] CBCDIF (EXTERNAL) [[id number]] Order #: [id number] Prescriptions as of 04/08/2018 Sig: HYDROCHLOROTHIAZIDE 25 MG TAB* Take 1 tablet by mouth once d* OMEGA-3 FATTY ACIDS 1,000 MG * Take 1 capsule by mouth once * SIMVASTATIN 40 MG TABLET Take 1 tablet by mouth daily * METOPROLOL TARTRATE 50 MG TAB* Take 1 tablet by mouth twice * Problem List As Of Date 04/08/2018 Noted Resolved Ex-smoker [Z87.891] INVALID FOR* Priority: C More... COPD, severe (HCC) [J44.9] INVALID FOR* Priority: A More... Prostate cancer screening [Z12.5] INVALID FOR* Mixed hyperlipidemia [E78.2] INVALID FOR* Priority: A Essential hypertension [I10] INVALID FOR* Priority: A More... Skin cancer, basal cell [C44.91] INVALID FOR* Priority: D More... Disorder of prostate [N42.9] INVALID FOR* Well adult exam [Z00.00] INVALID FOR* Priority: E More... Neoplasm of uncertain behavior of skin of tempo*INVALID FOR* Priority: D Skin exam, screening for cancer [Z12.83] INVALID FOR* Colon cancer screening [Z12.11] INVALID FOR* More... Bilateral leg edema [R60.0] INVALID FOR* Priority: A More... Medicare annual wellness visit, subsequent [Z00*INVALID FOR* Priority: E More... Squamous cell lung cancer (HCC) [C34.90] INVALID FOR* Priority: B More... 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) [F*INVALID FOR* Priority: A Encounter Status:Closed by INGRIS INGRAM MA on 04/08/18 RADIATION ONCOLOGY Observed: 04/02/2018 Status: F Source: [place] VISIT 10:42 AM [facility] REPOSITORY [facility] [address] [place] [id number] OFFICE VISIT Date of Service: 04/02/18 1037 MR#: [id number] Acct: [id number] Name: ANGEL LUIS GAUTAM Rep #: [id number] : 1950 From: Chaitanya Luther DO Age/Sex: 67/M Location: [facility] Status: Signed Date of Service: 04/02/18 Diagnosis: Angel Luis Gautam is a 67-year-old male diagnosed with 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 Plan was made to complete definitive chemoradiation therapy consisting of 6600 cGy delivered in 33 fractions. Treatment Data: Treatment Site: Right Lower Lobe of the lung Current total dose/Total dose planned: 2200 cGy / 6600 cGy Fraction number: Chemotherapy: weekly carbo/taxol (Saturday) Subjective: Doing well overall, no current complaints. 03/25/18: had thoracentesis of right lung as pleural effusion was increasing and causing increased SOB. 520 mL of fluid removed, appears to be transudate. Cytology negative for malignant cells Resp: SOB stable. No cough or hemoptysis Swallowing: no dysphagia or odynophagia, occasional GERD Energy: mild fatigue Pain: 0 / 10 Height/Weight/BMI: Height: 5 ft 9 in Weight: 03/19/18: 206 lbs, 03/26/18: 205 lbs, 04/02/18: 204.1 lbs Vital Signs Temperature 98.1 F 04/02/18 10:17 Temperature Source Oral 04/02/18 10:17 Pulse Rate 78 04/02/18 10:17 Respiratory Rate 16 04/02/18 10:17 Labs: 04/01/18: CBC and CMP unremarkable Objective: Gen: NAD Resp: CTAB, Rhonchi right middle and lower lobes, no wheezing. no increased WOB CV: RRR Assessment: Tolerating radiation therapy well overall. Treatment related imaging has been reviewed and approved Had effusion accumulating in RLL. Drained 520 mL on 03/25. Cytology showing no malignant cells Reviewed the potential toxicities and timing, none noted at this time Plan: Continue radiation therapy as planned Omeprazole Rx provided Follow-up next week or sooner if needed Thank you for allowing me to participate in the management and care of your patient. If I may answer any questions in the interim, please do not hesitate to contact me at any time. Chaitanya Luther DO, MS Public Transit Specialist, Department of Radiation Oncology [facility] 04/02/18 1042 <Electronically signed by Chaitanya Luther DO> Date Chaitanya Luther DO Cosigner Signature: Date (if applicable) CC: ONCOLOGY VISIT REPORT Observed: 04/01/2018 Status: F Source: [place] 10:59 AM [facility] REPOSITORY [facility] [place] [address] OFFICE VISIT Date of Service: 04/01/18 1040 MR#: [id number] Acct: [id number] Name: RAMEZANGEL LUIS E Rep #: [id number] : 1950 From: Juan Carlos Plummer MD Age/Sex: 67/M Location: [facility] Status: Signed - Problem List (1) Primary cancer of right middle lobe of lung Status: Acute (2) Pleural effusion, right Status: Acute Comment: March 2018, negative cytology (3) Anemia Status: Acute - Date of Service Date of Service:: 04/01/18 - Chief Complaint Lung cancer on treatment - History of Present Illness Patient is a 67-year-old gentleman ex-smoker who started smoking around age 15 averaging 2-1/2-3 packs per day and quit in 2011 and has a baseline COPD dyslipidemia and hypertension. He was in his usual state of health until May 2017 when he experienced an episode of hemoptysis , chest x-ray showed a right middle lobe infiltrate and he was treated for pneumonia and improved. However November 2017 experienced recurrence of hemoptysis in addition to worsening dyspnea and December 11, 2017 CT scan of the chest showed a right middle lobe mass associated with complete atelectasis of the right middle lobe. January 17, 2018 bronchoscopy with EBUS: FINDINGS: The visualized oropharynx appears normal. The vocal cords appeared normal and moved normally with breathing. The subglottic space is normal. The trachea was of normal caliber. The courtney is sharp. The tracheal bronchial trees of the left and right lungs were examined to at least the first subsegmental level. There was scant mucoid secretions noted in the left lower lobe. Within the right tracheal bronchial tree, there was a fungating obstructing mass occupying the orifice of the right middle lobe and right lower lobe. Only a slitlike portion of the right lower lobe orifice could be visualized. The lesion could not be traversed with the bronchoscope. Once the airway inspection was completed, the standard bronchoscope was withdrawn and a convex probe endobronchial ultrasound (EBUS) bronchoscope was inserted through the same route. The endobronchial ultrasound endoscope was then utilized to systematically examine the superior/inferior mediastinal and hilar lymph nodes to assist with fine-needle aspiration. No significant left-sided hilar lymphadenopathy was identified. 2 small lymph nodes were identified at lymph node station #7 (subcarina) and subsequently biopsied In total, 6 transbronchial needle aspirations were completed at 2 different lymph node stations. Transbronchial needle aspiration was performed at lymph node station #7(subcarina) using an Olympus EBUS-TBNA 19-gauge needle and sent for routine cytology. The procedure was guided by ultrasound. 3 samples were obtained. Transbronchial needle aspiration was then performed of the right-sided hilar lesion which encompassed the right middle lobe and right lower lobe takeoff, using an Olympus EBUS-TBNA 19-gauge needle and sent for routine cytology. The procedure was guided by ultrasound. 3 samples were obtained. Rapid on-site evaluation (ELYSIA): Preliminary cytology was suggestive of non-small cell carcinoma. Final pathology results are pending. Following this, the EBUS endoscope was subsequently withdrawn from the patient's airway through the LMA. A conventional bronchoscope was then reinserted into the patient's airway, at which time, endobronchial biopsies were obtained from the right middle lobe orifice, where the fungating mass was most pronounced. A total of 3 endobronchial forceps biopsies were completed. Bronchial washing was completed in the bronchus intermedius. Ice cold saline was infused into the region to facilitate achieving hemostasis. All retained secretions and/or blood was cleared from the patient's airway. The bronchoscope was then withdrawn without complication. The patient was then transferred to the PACU, where they recovered in the usual fashion. IMPRESSION: 1. Large right-sided obstructing lung mass. The fungating endobronchial portions of this lesion obstructed the orifice of the right middle and right lower lobes. The lesion was not able to be traversed by the bronchoscope. 2. Subcarinal lymphadenopathy status post transbronchial needle aspiration 3. Mucoid secretions within the left lower lobe. 4. No significant left-sided hilar adenopathy was identified. Pathology: MICROSCOPIC DIAGNOSIS RML, endobronchial biopsy: Non-small cell carcinoma, favor squamous cell carcinoma DIAGNOSIS CYTOLOGY A. EBUS aspiration #1, site 7: Negative for malignant cells. Adequate for evaluation, lymphocytes present. B. EBUS aspiration #2, site 7: Negative for malignant cells. Mostly blood. A few respiratory epithelial cells. C. EBUS aspiration #3, site 7: Negative for malignant cells. Adequate for evaluation lymphocytes present. D. EBUS aspiration #4, hilar mass: Malignant cells present derived from non-small cell carcinoma. E. EBUS aspiration #5, hilar mass: Malignant cells present derived from non-small cell carcinoma. F. EBUS aspiration #6, hilar mass: Malignant cells present derived from non-small cell carcinoma. G. Site 7, TBNA, fluid (cytospin and cell block): Negative for metastatic carcinoma. See cytology study and comment. H. Hilar mass, TBNA (cytospin and cell block): Malignant cells present derived from non-small cell carcinoma, favor squamous cell carcinoma. See comment. I. RML, washing (cytospin and cell block): A few atypical squamous epithelial cells are noted. ANTIBODY / CLONE RESULT Block H AE1-3 (AE1/AE3/PCK26) positive, focal CK7 (OV-TL12/30) negative CK8 (19hrevP87) positive, focal CK20 (KS20.8) negative TTF-1 (8G7G3/1) negative Napsin A (Rabbit Polyclonal) negative HepPar (OCh1E5) negative RCC (PN-15) negative PSA (ER-PR8) negative CK5-6 (D5 AND 1684) positive P40 (BC28) positive PET CT January 27, 2018: IMPRESSION: 1. ABNORMAL EXAMINATION INDICATIVE OF MALIGNANT VIABLE NEOPLASM. 2. Increased glucose concentration identified in the right thoracic perihilum, infrahilar region fulfills quantitative criteria for viable neoplasm. (Rajiv et al, Journal of Clinical Oncology 16:2142, 1998). 3. Subtle increased glucose concentration observed in the right lower lateral hemithorax pulmonary parenchyma corresponding to apparent atelectatic change likely represents activated leukocytes associated with a localized inflammatory process-obstructive pneumonitis. 4. The increase in glucose concentration observed in the descending thoracic, as well as abdominal aorta is commensurate with activated leukocytes associated with atherosclerotic plaque formation. (Michael et al, Clinical Nuclear Medicine 29:93, 2003). 5. Asymmetric increased glucose concentration visualized in the left diaphragmatic crura is most consistent with a component muscle tension artifact. Brain MRI January 29, 2018: No evidence of metastases PFTs January 2018: INTERPRETATION: Forced expiration spirometry demonstrates the presence of a very severe large airways obstructive ventilatory defect. There was a significant response to aerosolized bronchodilators. Spirograms are of good quality and do not plateau indicating slow emptying of the lungs. Body plethysmography was performed and reveals an elevated RV to 232% of predicted, indicative of underlying air trapping. Diffusing capacity by single breath CO severely reduced at 38% of predicted. IMPRESSION: These pulmonary function studies demonstrate the presence of a partially reversible very severe large airways obstructive ventilatory defect with associated air trapping and symmetric reduction in diffusing capacity. March 04, 2018: Surgical consultation at [facility] found the patient a poor surgical candidate due to insufficient pulmonary reserve. March 27, 2018: No pleural effusion noted, diagnostic thoracocentesis was negative for malignancy. Treatment: Concomitant chemo (weekly carbotaxol) with radiation March 19, 2018- - Past Medical/Social History Past Medical History Cancer: Lung cancer Other Cancer History: BCC MULTIPLE Social History Social History: No changes Smoking Status Former smoker Review of Systems Constitutional:: Reports: Fatigue. Denies: Fever, Sweats, Weight loss, Appetite change, Chills Cardiovascular:: Reports: Dyspnea on exertion. Denies: Chest pain, Palpitations, Orthopnea, PND, Shortness of breath Respiratory: Reports: Shortness of breath upon exertion. Denies: Cough, Hemoptysis, Shortness of Breath, Wheezing Gastrointestinal:: Denies: Abdominal pain, Nausea, Vomiting, Diarrhea, Constipation, Hematochezia Genitourinary: Denies: Dysuria, Hematuria, 15, Flank pain Musculoskeletal:: Denies: Back pain, Myalgia, Arthralgia Skin: Denies: Rash, Skin Changes, Wounds Neurological:: Denies: Headache, Dizziness, Visual changes, Tinnitus, Hearing loss Psychiatric: Denies: Anxiety, Depression, Homicidal Ideations, Suicidal Ideations Vital Signs Height 5 ft 9 in Weight: 92.805 kg Weight in Pounds 204.6 lbs BMI 29.9 Pulse Ox 94 - Physical Exam General: Alert, Oriented x3, No apparent distress, - - ECOG 1-2 HEENT: Atraumatic, PERRLA, EOMI, Normocephalic Oropharynx:: Dry mucosa Neck:: Supple, Trachea midline, - - Port okay. Negative for: JVD, bilateral Cardiac:: Regular rate, Regular rhythm, Normal S1, Normal S2. Negative for: Murmur Lungs: Clear to auscultation, Diminished, Excusion symmetrical. Negative for: Rhonchi, Wheezes Abdomen:: Soft, Non-tender, Non-distended. Negative for: Hepatosplenomegaly Extremities:: Negative for: Cyanosis, Edema Neurological: Neuro grossly intact Skin:: Negative for: Lesions, Rash, Petechiae, Ecchymosis Psychiatric:: Appropriate affect, Euthymic Lymphatics:: Negative for: Cervical lymphadenopathy, Supraclavicular lymphadenopathy Diagnostic Data: Diagnostic Data PET, CT Tumor Imaging 01/27/18 12:45 IMPRESSION: 1. ABNORMAL EXAMINATION INDICATIVE OF MALIGNANT VIABLE NEOPLASM. 2. Increased glucose concentration identified in the right thoracic perihilum, infrahilar region fulfills quantitative criteria for viable neoplasm. (Rajiv zazueta al, Journal of Clinical Oncology 16:2142, 1998). 3. Subtle increased glucose concentration observed in the right lower lateral hemithorax pulmonary parenchyma corresponding to apparent atelectatic change likely represents activated leukocytes associated with a localized inflammatory process-obstructive pneumonitis. 4. The increase in glucose concentration observed in the descending thoracic, as well as abdominal aorta is commensurate with activated leukocytes associated with atherosclerotic plaque formation. (Michael et al, Clinical Nuclear Medicine 29:93, 2004). 5. Asymmetric increased glucose concentration visualized in the left diaphragmatic crura is most consistent with a component muscle tension artifact. Electronic Signature Keith Patel D.O. 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 Clinical and radiologic staging is consistent with an early stage localized disease but patient not a surgical candidate due to poor pulmonary reserve. Started combined chemoradiation March 19, 2018. A new right pleural effusion was noted March 25, underwent a diagnostic tap and cytology is negative. Comorbid conditions: COPD, hypertension and dyslipidemia. Plan: Continue with combined chemoradiation with an intent to cure. Patient was seen was his impression and plan discussed. Resultant implication (no change in plan) of negative fluid cytology discussed with patient and his . Medications: Prescriptions This Visit Medication Instructions Recorded Guaifenesin/Codeine Phosphate 10 ml PO PRN PRN 03/06/18 [Virtussin AC Liquid] Primary Care Provider: Semaj Page MD Referring Provider: Antonio Chin DO 04/01/18 1059 <Electronically signed by Juan Carlos Plummer MD> Date Juan Carlos Plummer MD Cosigner Signature: Date (if applicable) CC: CBC W/DIFF, AUTOMATED Collected: 04/01/2018 Status: F Source: [place] 10:15 AM [facility] REPOSITORY TYPE CODE TESTS RESULT OUT OF RANGE REFERENCE UNITS LAB L100.1000 4.4-11.0 K/mm3 Normal WBC 5.0 LAB L100.1200 4.6-6.2 M/mm3 Low RBC 3.81 LAB L100.1300 13.0-16.5 g/dl Low HGB 10.6 LAB L100.1400 40-54 % Low HCT 33.3 LAB L100.1500 80-94 fL Normal MCV 87.4 LAB L100.1600 27.0-32.0 pg Normal MCH 27.8 LAB L100.1700 32-36 g/gl Low MCHC 31.8 LAB L100.1810 11.6-14.6 % Normal RDW CV 13.4 LAB L100.1820 35.1-43.9 fl Normal RDW SD 40.8 LAB L100.1900 150-450 K/mm3 Normal PLT 313 LAB L100.2000 6.2-12.0 fl Normal MPV 8.8 LAB L100.2100 47-70 % High NEUT% 82.6 LAB L100.2200 19-41 % Low LY% 5.8 LAB L100.2300 0-10 % Normal MONO% 8.0 LAB L100.2400 0-5 % Normal EO% 2.6 LAB L100.2500 0-1 % Normal BASO% 0.2 LAB L100.2550 0.0-0.9 % Normal IM GRAN % 0.800 Result Comment: IG% - Immature Granulocytes (promyelocytes, myelocytes and metamyelocytes) > 1% indicates that a LEFT SHIFT is Present. LAB L100.2620 2.0-7.7 X10 3/uL Normal Absolute Neut 4.1 LAB L100.2720 0.83-4.51 X10 3/ul Low Absolute Lymph 0.29 Performed By: #### L100.0100 #### [facility] [place], [address] COMPREHENSIVE METABOLIC Collected: 04/01/2018 Status: F Source: [place] 10:15 AM [facility] REPOSITORY Order Comment: Reason for Laboratory Test Chemotherapy TYPE CODE TESTS RESULT OUT OF RANGE REFERENCE UNITS LAB L501.0100 74-106 mg/dL High GLU 115 Result Comment: Fasting Glucose result from 100 to 125 mg/dL suggests IMPAIRED HOMEOSTASIS per A.D.A. criteria. Please note revised GLUCOSE reference range effective 2017. LAB L501.1000 7-18 mg/dL Normal BUN 16 LAB L501.1100 0.70-1.30 mg/dL Normal CREAT,SERUM 0.90 Result Comment: The validity of the calculated GFR AND GFRAA in patients over 70 years has not been determined. Clinical correlation is essential. LAB L501.1110 >60 mL/min Normal EST GFR 90 Result Comment: Non- GFR Calc LAB L501.1115 >60 mL/min Normal EST GFR - AA 109 Result Comment: GFR Calc LAB L501.1255 ml/min Normal Estimated CRCL 79.65 LAB L501.1300 10-20 RATIO Normal BUN/CRE 17.9 LAB L501.1500 6.4-8. g/dL Normal 2 T PROT 6.8 LAB L501.1800 3.2-5. g/dL Low 0 ALB 2.6 LAB L501.1950 2.2-4. g/dL Normal 2 GLOB 4.2 LAB L501.2000 0.9-2. RATIO Low 4 A/G 0.6 LAB L501.2200 8.5-10 mg/dL Normal .1 CA 8.8 LAB L501.4100 15-37 U/L Low AST 13 LAB L501.4305 45-117 U/L Normal ALK P 100 LAB L501.4405 16-61 U/L Normal ALT 30 LAB L501.4600 0.20-1 mg/dL Normal .00 T BILI 0.70 LAB L501.5300 136-14 mmol/L Low 5 NA 133 LAB L501.5600 3.5-5. mmol/L Normal 1 K 3.9 LAB L501.5900 98-107 mmol/L Low CL 94 LAB L501.6100 21.0-3 mmol/L Normal 2.0 CO2 31.0 LAB L501.6200 5-15 Normal GAP 8 Performed By: #### L500.4050 #### [facility] [address] [place], [address] ONCOLOGY VISIT REPORT Observed: 03/26/2018 Status: F Source: [place] 11:22 AM [facility] REPOSITORY [facility] [address] [place] [address] OFFICE VISIT Date of Service: 03/26/18 1106 MR#: [id number] Acct: [id number] Name: ANGEL LUIS GAUTAM Rep #: [id number] : 1950 From: Juan Carlos Plummer MD Age/Sex: 67/M Location: ONC Status: Signed - Problem List (1) Primary cancer of right middle lobe of lung Status: Acute (2) Pleural effusion, right Status: Acute - Date of Service Date of Service:: 03/26/18 - Chief Complaint Lung cancer on treatment - History of Present Illness Patient is a 67-year-old gentleman ex-smoker who started smoking around age 15 averaging 2-1/2-3 packs per day and quit in 2011 and has a baseline COPD dyslipidemia and hypertension. He was in his usual state of health until May 2017 when he experienced an episode of hemoptysis , chest x-ray showed a right middle lobe infiltrate and he was treated for pneumonia and improved. However November 2017 experienced recurrence of hemoptysis in addition to worsening dyspnea and December 11, 2017 CT scan of the chest showed a right middle lobe mass associated with complete atelectasis of the right middle lobe. January 17, 2018 bronchoscopy with EBUS: FINDINGS: The visualized oropharynx appears normal. The vocal cords appeared normal and moved normally with breathing. The subglottic space is normal. The trachea was of normal caliber. The courtney is sharp. The tracheal bronchial trees of the left and right lungs were examined to at least the first subsegmental level. There was scant mucoid secretions noted in the left lower lobe. Within the right tracheal bronchial tree, there was a fungating obstructing mass occupying the orifice of the right middle lobe and right lower lobe. Only a slitlike portion of the right lower lobe orifice could be visualized. The lesion could not be traversed with the bronchoscope. Once the airway inspection was completed, the standard bronchoscope was withdrawn and a convex probe endobronchial ultrasound (EBUS) bronchoscope was inserted through the same route. The endobronchial ultrasound endoscope was then utilized to systematically examine the superior/inferior mediastinal and hilar lymph nodes to assist with fine-needle aspiration. No significant left-sided hilar lymphadenopathy was identified. 2 small lymph nodes were identified at lymph node station #7 (subcarina) and subsequently biopsied In total, 6 transbronchial needle aspirations were completed at 2 different lymph node stations. Transbronchial needle aspiration was performed at lymph node station #7(subcarina) using an Olympus EBUS-TBNA 19-gauge needle and sent for routine cytology. The procedure was guided by ultrasound. 3 samples were obtained. Transbronchial needle aspiration was then performed of the right-sided hilar lesion which encompassed the right middle lobe and right lower lobe takeoff, using an Olympus EBUS-TBNA 19-gauge needle and sent for routine cytology. The procedure was guided by ultrasound. 3 samples were obtained. Rapid on-site evaluation (ELYSIA): Preliminary cytology was suggestive of non-small cell carcinoma. Final pathology results are pending. Following this, the EBUS endoscope was subsequently withdrawn from the patient's airway through the LMA. A conventional bronchoscope was then reinserted into the patient's airway, at which time, endobronchial biopsies were obtained from the right middle lobe orifice, where the fungating mass was most pronounced. A total of 3 endobronchial forceps biopsies were completed. Bronchial washing was completed in the bronchus intermedius. Ice cold saline was infused into the region to facilitate achieving hemostasis. All retained secretions and/or blood was cleared from the patient's airway. The bronchoscope was then withdrawn without complication. The patient was then transferred to the PACU, where they recovered in the usual fashion. IMPRESSION: 1. Large right-sided obstructing lung mass. The fungating endobronchial portions of this lesion obstructed the orifice of the right middle and right lower lobes. The lesion was not able to be traversed by the bronchoscope. 2. Subcarinal lymphadenopathy status post transbronchial needle aspiration 3. Mucoid secretions within the left lower lobe. 4. No significant left-sided hilar adenopathy was identified. Pathology: MICROSCOPIC DIAGNOSIS RML, endobronchial biopsy: Non-small cell carcinoma, favor squamous cell carcinoma DIAGNOSIS CYTOLOGY A. EBUS aspiration #1, site 7: Negative for malignant cells. Adequate for evaluation, lymphocytes present. B. EBUS aspiration #2, site 7: Negative for malignant cells. Mostly blood. A few respiratory epithelial cells. C. EBUS aspiration #3, site 7: Negative for malignant cells. Adequate for evaluation lymphocytes present. D. EBUS aspiration #4, hilar mass: Malignant cells present derived from non-small cell carcinoma. E. EBUS aspiration #5, hilar mass: Malignant cells present derived from non-small cell carcinoma. F. EBUS aspiration #6, hilar mass: Malignant cells present derived from non-small cell carcinoma. G. Site 7, TBNA, fluid (cytospin and cell block): Negative for metastatic carcinoma. See cytology study and comment. H. Hilar mass, TBNA (cytospin and cell block): Malignant cells present derived from non-small cell carcinoma, favor squamous cell carcinoma. See comment. I. RML, washing (cytospin and cell block): A few atypical squamous epithelial cells are noted. ANTIBODY / CLONE RESULT Block H AE1-3 (AE1/AE3/PCK26) positive, focal CK7 (OV-TL12/30) negative CK8 (93qwciS27) positive, focal CK20 (KS20.8) negative TTF-1 (8G7G3/1) negative Napsin A (Rabbit Polyclonal) negative HepPar (OCh1E5) negative RCC (PN-15) negative PSA (ER-PR8) negative CK5-6 (D5 AND 1684) positive P40 (BC28) positive PET CT January 27, 2018: IMPRESSION: 1. ABNORMAL EXAMINATION INDICATIVE OF MALIGNANT VIABLE NEOPLASM. 2. Increased glucose concentration identified in the right thoracic perihilum, infrahilar region fulfills quantitative criteria for viable neoplasm. (VanSteenkistveronica et al, Journal of Clinical Oncology 16:2142, 1998). 3. Subtle increased glucose concentration observed in the right lower lateral hemithorax pulmonary parenchyma corresponding to apparent atelectatic change likely represents activated leukocytes associated with a localized inflammatory process-obstructive pneumonitis. 4. The increase in glucose concentration observed in the descending thoracic, as well as abdominal aorta is commensurate with activated leukocytes associated with atherosclerotic plaque formation. (Michael et al, Clinical Nuclear Medicine 29:93, 2004). 5. Asymmetric increased glucose concentration visualized in the left diaphragmatic crura is most consistent with a component muscle tension artifact. Brain MRI January 29, 2018: No evidence of metastases PFTs January 2018: INTERPRETATION: Forced expiration spirometry demonstrates the presence of a very severe large airways obstructive ventilatory defect. There was a significant response to aerosolized bronchodilators. Spirograms are of good quality and do not plateau indicating slow emptying of the lungs. Body plethysmography was performed and reveals an elevated RV to 232% of predicted, indicative of underlying air trapping. Diffusing capacity by single breath CO severely reduced at 38% of predicted. IMPRESSION: These pulmonary function studies demonstrate the presence of a partially reversible very severe large airways obstructive ventilatory defect with associated air trapping and symmetric reduction in diffusing capacity. March 04, 2018: Surgical consultation at [facility] found the patient a poor surgical candidate due to insufficient pulmonary reserve. Treatment: Concomitant chemo (weekly carbotaxol) with radiation March 19, 2018- - Interval History Pleural effusion, new, underwent right thoracocentesis March 25, cytology pending Approximately 520 mL of carolin-colored fluid was drained. - Past Medical/Social History Past Medical History Cancer: Lung cancer Other Cancer History: [facility] MULTIPLE Social History Social History: No changes Smoking Status Former smoker Review of Systems Constitutional:: Reports: Fatigue. Denies: Fever, Sweats, Weight loss, Appetite change, Chills Cardiovascular:: Reports: Dyspnea on exertion. Denies: Chest pain, Palpitations, Orthopnea, PND, Shortness of breath Respiratory: Reports: Shortness of breath upon exertion - Improved to baseline after pleural fluid tap on March 25, 2018. Denies: Cough, Hemoptysis, Shortness of Breath, Wheezing Gastrointestinal:: Denies: Abdominal pain, Nausea, Vomiting, Diarrhea, Constipation, Hematochezia Genitourinary: Denies: Dysuria, Hematuria, 15, Flank pain Musculoskeletal:: Denies: Back pain, Myalgia, Arthralgia Skin: Denies: Rash, Skin Changes, Wounds Neurological:: Denies: Headache, Dizziness, Visual changes, Tinnitus, Hearing loss Psychiatric: Denies: Anxiety, Depression, Homicidal Ideations, Suicidal Ideations Vital Signs Height 5 ft 9 in Weight: 92.805 kg Weight in Pounds 204.6 lbs BMI 29.9 Pulse Ox 94 - Physical Exam General: Alert, Oriented x3, No apparent distress, - - ECOG 1-2 HEENT: Atraumatic, PERRLA, EOMI, Normocephalic Oropharynx:: Dry mucosa Neck:: Supple, Trachea midline, - - Port okay. Negative for: JVD, bilateral Cardiac:: Regular rate, Regular rhythm, Normal S1, Normal S2. Negative for: Murmur Lungs: Clear to auscultation, Excusion symmetrical. Negative for: Rhonchi, Wheezes Abdomen:: Soft, Non-tender, Non-distended. Negative for: Hepatosplenomegaly Extremities:: Negative for: Cyanosis, Edema Neurological: Neuro grossly intact Skin:: Negative for: Lesions, Rash, Petechiae, Ecchymosis Psychiatric:: Appropriate affect, Euthymic Lymphatics:: Negative for: Cervical lymphadenopathy, Supraclavicular lymphadenopathy Laboratory Data: Laboratory Tests Diagnostic Data: Diagnostic Data PET, CT Tumor Imaging 01/27/18 12:45 IMPRESSION: 1. ABNORMAL EXAMINATION INDICATIVE OF MALIGNANT VIABLE NEOPLASM. 2. Increased glucose concentration identified in the right thoracic perihilum, infrahilar region fulfills quantitative criteria for viable neoplasm. (Rajiv zazueta al, Journal of Clinical Oncology 16:2142, 1998). 3. Subtle increased glucose concentration observed in the right lower lateral hemithorax pulmonary parenchyma corresponding to apparent atelectatic change likely represents activated leukocytes associated with a localized inflammatory process-obstructive pneumonitis. 4. The increase in glucose concentration observed in the descending thoracic, as well as abdominal aorta is commensurate with activated leukocytes associated with atherosclerotic plaque formation. (Michael et al, Clinical Nuclear Medicine 29:93, 2004). 5. Asymmetric increased glucose concentration visualized in the left diaphragmatic crura is most consistent with a component muscle tension artifact. Electronic Signature Keith Patel D.O. 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 Clinical and radiologic staging is consistent with an early stage localized disease but patient not a surgical candidate due to poor pulmonary reserve. Started combined chemoradiation March 19, 2018. A new right pleural effusion was noted Rosalina 25, underwent a diagnostic tap and cytology is pending. Comorbid conditions: COPD, hypertension and dyslipidemia. Plan: Continue with combined chemoradiation with an intent to cure. Will review fluid cytology once available. The positive cytology will upgrade him to stage IV cancer, and we would then revise the treatment plan. Patient was seen was his impression and plan discussed Medications: Prescriptions This Visit Medication Instructions Recorded Guaifenesin/Codeine Phosphate 10 ml PO PRN PRN 03/06/18 [Virtussin AC Liquid] Primary Care Provider: Semaj Page MD Referring Provider: Antonio Chin DO 03/26/18 1122 <Electronically signed by Juan Carlos Plummer MD> Date Juan Carlos Plummer MD Cosigner Signature: Date (if applicable) CC: SURGERY VISIT REPORT Observed: 03/26/2018 Status: F Source: [place] 10:56 AM [facility] REPOSITORY [facility] [address] [place] [address] [address] [place] [address] OFFICE VISIT Date of Service: 03/26/18 MR#: [id number] Acct: [id number] Name: ANGEL LUIS GAUTAM Rep #: [id number] : 1950 Provider: Rita Cedillo PA-C Age/Sex: 67/M Location: [facility] Status: Signed Intake Intake Visit Reasons: 1 wk f/u port placement 03/18 DP Chief Complaint: post op port 03-18 DP [employer] Work[employer] Required: No Is patient in pain?: No Allergies No Known Allergies Allergy (Verified 03/26/18 09:38) Medications Hydrochlorothiazide [Hctz] 25 mg PO DAILY 06/16/17 [History Confirmed 03/26/18] Metoprolol Tartrate [Lopressor (beta shorty)] 50 mg PO BID 06/16/17 [History Confirmed 03/26/18] Simvastatin [Zocor] 40 mg PO QHS 06/16/17 [History Confirmed 03/26/18] [place]-3 Fatty Acids/Fish Oil [Fish Oil 1,000 mg Capsule] 1 ea PO DAILY 12/11/17 [History Confirmed 03/26/18] Albuterol IH (ProAir) [Proair Hfa] 1 puff INHALATION Q4H PRN PRN #1 inhaler 12/12/17 [Rx Confirmed 03/26/18] Guaifenesin [Mucinex] 1,200 mg PO BID 01/14/18 [History Confirmed 03/26/18] tiotropium 2.5 mcg-olodaterol 2.5 mcg/actuation mist for inhalation 2 puff INHALATION Q24H #4 g 03/04/18 [Rx Confirmed 03/26/18] Guaifenesin/Codeine Phosphate [Virtussin AC Liquid] 10 ml PO PRN PRN 03/06/18 [History Confirmed 03/26/18] Lidocaine/Prilocaine [Lidocaine-Prilocaine Cream] 30 gm TP DAILY PRN PRN #1 cream..g. 03/10/18 [Rx Confirmed 03/26/18] Ondansetron [Zofran Odt] 4 mg PO Q8H PRN PRN 10 Days #30 tab.rapdis 03/10/18 [Rx Confirmed 03/26/18] Oxycodone HCl/Acetaminophen [Percocet 5/325] 1 - 2 tab PO Q4H PRN PRN 5 Days #30 tab 03/18/18 [Rx Confirmed 03/26/18] Subjective Details: Patient is a 67 y/o male I am following for right lung cancer. performed a right port-a-cath placement on 03/18/18. Patient tolerated the procedure well. Patient denies pain/discomfort. He notes residual ecchymosis. Oncology has accessed the port multiple times. Objective Details: Right chest- port accessed and intact. Slight amount of ecchymosis noted. No infection. Assessment AND Plan Problems 1. Primary cancer of right middle lobe of lung C34.2 Plan - Follow-up as needed Coding Level of Care Code Global Post Op Diagnoses Primary cancer of right middle lobe of lung C34.2 03/26/18 1056 <Electronically signed by Rita Cedillo PA-C> Date Rita Zambrano Signature: Date (if applicable) CC: RADIATION ONCOLOGY Observed: 03/26/2018 Status: F Source: [place] VISIT 9:46 AM [facility] REPOSITORY [facility] [address] [place] [address] OFFICE VISIT Date of Service: 03/26/18 09 MR#: [id number] Acct: [id number] Name: ANGEL LUIS GAUTAM Rep #: [id number] : 1950 From: Chaitanya Homa SWARTZ Age/Sex: 67/M Location: ONC Status: Signed Date of Service: 03/26/18 Diagnosis: Angel Luis Gautam is a 67-year-old male diagnosed with 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 Plan was made to complete definitive chemoradiation therapy consisting of 6600 cGy delivered in 33 fractions. Treatment Data: Treatment Site: Right Lower Lobe of the lung Current total dose/Total dose planned: 1200 cGy / 6600 cGy Fraction number: Chemotherapy: weekly carbo/taxol (Saturday) Subjective: Doing well overall, no current complaints. 03/25/18: had thoracentesis of right lung as pleural effusion was increasing and causing increased SOB. 520 mL of fluid removed, appears to be transudate. Cytology pending Resp: SOB stable. No cough or hemoptysis Swallowing: no dysphagia or odynophagia Energy: mild fatigue Pain: 0 / 10 Height/Weight/BMI: Height: 5 ft 9 in Weight: 03/19/18: 206 lbs, 03/26/18: 205 lbs Vital Signs Temperature 98.1 F 03/19/18 15:35 Temperature Source Oral 03/19/18 15:35 Pulse Rate 75 03/19/18 15:35 Respiratory Rate 16 03/19/18 15:35 Labs: 03/25/18: CBC and CMP unremarkable Objective: Gen: NAD Resp: CTAB CV: RRR Assessment: Tolerating radiation therapy well overall. Treatment related imaging has been reviewed and approved Had effusion accumulating in RLL. Drained 520 mL on 03/25. Cytology pending Reviewed the potential toxicities and timing, none noted at this time Plan: Continue radiation therapy as planned Follow-up next week or sooner if needed Thank you for allowing me to participate in the management and care of your patient. If I may answer any questions in the interim, please do not hesitate to contact me at any time. Chaitanya Luther DO, MS Public Transit Specialist, Department of Radiation Oncology [facility] 03/26/18 0934 <Electronically signed by Chaitanya Luther DO> Date Chaitanya Luther DO Cosigner Signature: Date (if applicable) CC: CHEST INSP/EXP 2 VIEW Observed: 03/25/2018 Status: F Source: [place] 2:00 PM [facility] REPOSITORY [facility] Imaging Services [address] [place] [address] Chest Insp/Exp 2 View MR#: [id number] Acct: [id number] Name: ANGEL LUIS GAUTAM Rep #: [id number] : 1950 M 67 From: Fish Mac MD PCP: Semaj Page MD Status: REG CLI Study: Chest Insp/Exp 2 View Date of Exam: 03/25/18 Exam# [id number] Ordering Dr: Fish Mac MD STUDY: X-RAY CHEST REASON FOR EXAM: Male, 67 years old. Status post right thoracentesis. TECHNIQUE: Inspiration expiration frontal views. COMPARISON: Comparison is made with prior examination of March 18, 2018. FINDINGS: A right-sided portacatheter is seen with the tip at the junction of superior vena cava and right atrium. Elevation of the right hemidiaphragm. There is no evidence of pneumothorax. The left lung is clear. RAD/Chest Insp/Exp 2 View IMPRESSION: Status post right thoracentesis. There is no evidence of right pneumothorax. Electronically Signed: Fish Mac MD at 14:17 EDT Tel [phone], Service support , CC: Fish Mac MD; Semaj Page MD Rn Unit Manager: Signed GLUCOSE, BODY FLUID Collected: 03/25/2018 Status: F Source: [place] 1:45 PM [facility] REPOSITORY Order Comment: Specimen Source: THORACENTESIS TYPE CODE TESTS RESULT OUT OF RANGE REFERENCE UNITS LAB L503.0100 40-70 mg/dL High GLU,BF 124 Performed By: #### L503.0100, L503.0300 #### [facility] [address] [place], [place], [address] PROTEIN, BODY FLUID Collected: 03/25/2018 Status: F Source: [place] 1:45 PM [facility] REPOSITORY Order Comment: Specimen Source: THORACENTESIS TYPE CODE TESTS RESULT OUT OF RANGE REFERENCE UNITS LAB L503.0300 Not Establ. g/dL Normal 4.3 PROTEIN,BF Performed By: #### L503.0100, L503.0300 #### [facility] [address] [place], [address] BODY FLUID CELL Collected: 03/25/2018 Status: C Source: [place] COUNT+DIFF 1:45 PM [facility] REPOSITORY Order Comment: The reference range and other method performance specifications have not been established for this body fluid. The test must be integrated into the clinical context for interpretation. Specimen Source: THORACENTESIS TYPE CODE TESTS RESULT OUT OF RANGE REFERENCE UNITS LAB L200.3380 10 3/ul Normal BFTC# 2.292 Result Comment: This is the Total Number of Nucleated Cell Types in the Body Fluid. LAB L200.3400 10 6/ul Normal RBC/BF 0.43231 LAB L200.3500 10 3/uL Normal 2.121 WBC/BF LAB L200.3510 % Normal 44.0 BF PMN WBC% LAB L200.3515 % Normal 56.0 BF MN WBC% LAB L200.3520 10 3/uL Normal 1.188 BF MN WBC# LAB L200.3525 10 3/uL Normal 0.933 BF PMN WBC# LAB L200.4400 Normal PATH COMM/BF Reviewed Result Comment: Negative for malignant cells. Viktor Guerrero M.D. 03/26/18 AMENDED REPORT 03/26/18 1456 PATH COMM/BF previously reported as: May follow LAB L200.3600 % PMN 31 Normal LAB L200.3700 % LYMPH 57 Normal LAB L200.3800 % MONO/BF 1 Normal LAB L200.3900 % MESOTHELIAL 11 Normal LAB L200.3100 SOURCE/BF THORACENTESIS Normal LAB L200.3200 COLOR/BF YELLOW Normal LAB L200.3300 APPEAR/BF SL CLDY Normal LAB L200.4420 BFM 2ND SEE COMMENT Normal SPEC Result Comment: . INTERPRETATION OF RESULTS: Differentiation of transudate and exudate fluid: TRANSUDATE EXUDATE Color- Clear,straw colored Clear,turbid,bloody,purulent RBCs- Usually none to few Often present in high numbers WBCs- Usually none to few Often present in high numbers DIFF Few lymphocytes or Lymphocytes, neutrophils, and Count- mesothelial cells. polymorphonuclear cells . Performed By: #### L200.0200 #### [facility] [address] [place], [address] Observed: 03/25/2018 Status: F Source: [place] BUSTAMANTE, BODY FLUID 1:45 PM [facility] REPOSITORY List Antibiotics Last 48 Hours? UNK List Antibiotics to be Started? UNK Gram Stain Centrifuged Specimen? Culture performed on centrifuged specimen Gram Stain 3+ Red Blood Cells 3+ White Blood Cells No organisms seen Body Fluid Cult No growth aerobically. Cult, Anaerobic No growth in 5 days. Performed By: #### M100.1300 #### [facility] [address] [facility] [place], [address] CYTOLOGY, BODY FLUID / Collected: 03/25/2018 Status: F Source: [place] CSF 1:45 PM [facility] REPOSITORY Order Comment: Specimen Source: THORACENTESIS TYPE CODE TESTS RESULT OUT OF RANGE REFERENCE UNITS LAB L350.1000 SEE Normal PATHOLOGY CYTOLOGY,BF REPORT /CSF Result Comment: Specimen submitted to Anatomical Pathology Department for testing. Performed By: #### L350.1000 #### [facility] [address] [facility] [place], [address] THORACENTESIS W US Observed: 03/25/2018 Status: F Source: [place] 1:25 PM [facility] REPOSITORY [facility] Imaging Services [address] [place] [address] Thoracentesis W US MR#: [id number] Acct: [id number] Name: ANGEL LUIS GAUTAM Rep #: [id number] : 1950 M 67 From: Fish Mac MD PCP: Semaj Page MD Status: REG CLI Study: Thoracentesis W US Date of Exam: 03/25/18 Exam# [id number] Ordering Dr: Chaitanya Luther DO PROCEDURE: ULTRASOUND GUIDED THORACENTESIS. DATE: March 25, 2018.. INDICATION: Male, 67 years old. Right pleural effusion. PHYSICIAN: Fish Mac M.D. PROCEDURE: The risks, benefits, and alternatives to the procedure were explained to the patient. The specific risks of bleeding, infection, and pneumothorax requiring chest tube insertion were discussed and accepted. Written informed consent was obtained. Ultrasonographic evaluation of the right lower pleural space was carried out. An adequate pocket was identified. The patient was placed in the sitting, upright position. The overlying skin was prepped and draped in sterile fashion. 1% lidocaine was administered subcutaneously for local anesthesia. Under ultrasound guidance, a 5 Georgian thoracentesis needle/catheter system was advanced into the right posterior lower pleural fluid collection. Approximately 520 mL of carolin-colored fluid was drained. The catheter was removed, and a sterile dressing was applied. A specimen was collected and sent to the laboratory for analysis, as requested by the referring clinician. The patient tolerated the procedure well. A chest x-ray was ordered. US/Thoracentesis W US IMPRESSION: Ultrasound-guided right thoracentesis. Electronically Signed: Fish Mac MD at 14:49 EDT Tel [phone], Service support , CC: Semaj Page MD; Chaitanya Luther DO Rn Unit Manager: Signed PROTHROMBIN TIME W/INR Collected: 03/25/2018 Status: F Source: [place] 10:53 AM [facility] REPOSITORY TYPE CODE TESTS RESULT OUT OF RANGE REFERENCE UNITS LAB L300.4150 11.7-14.9 SECONDS Normal PROTIME 14.2 LAB L300.4200 Normal INR 1.1 Performed By: #### L300.3900 #### [facility] [address] [place], [place], [address] CBC W/DIFF, AUTOMATED Collected: 03/25/2018 Status: F Source: [place] 10:52 AM [facility] REPOSITORY TYPE CODE TESTS RESULT OUT OF RANGE REFERENCE UNITS LAB L100.1000 4.4-11.0 K/mm3 Normal WBC 10.0 LAB L100.1200 4.6-6.2 M/mm3 Low RBC 4.03 LAB L100.1300 13.0-16.5 g/dl Low HGB 11.0 LAB L100.1400 40-54 % Low HCT 34.8 LAB L100.1500 80-94 fL Normal MCV 86.4 LAB L100.1600 27.0-32.0 pg Normal MCH 27.3 LAB L100.1700 32-36 g/gl Low MCHC 31.6 LAB L100.1810 11.6-14.6 % Normal RDW CV 13.1 LAB L100.1820 35.1-43.9 fl Normal RDW SD 41.3 LAB L100.1900 150-450 K/mm3 Normal PLT 285 LAB L100.2000 6.2-12.0 fl Normal MPV 8.2 LAB L100.2100 47-70 % High NEUT% 81.7 LAB L100.2200 19-41 % Low LY% 12.1 LAB L100.2300 0-10 % Normal MONO% 2.2 LAB L100.2400 0-5 % Normal EO% 3.1 LAB L100.2500 0-1 % Normal BASO% 0.2 LAB L100.2550 0.0-0.9 % Normal IM GRAN % 0.700 Result Comment: IG% - Immature Granulocytes (promyelocytes, myelocytes and metamyelocytes) > 1% indicates that a LEFT SHIFT is Present. LAB L100.2620 2.0-7.7 X10 3/uL High Absolute Neut 8.1 LAB L100.2720 0.83-4.51 X10 3/ul Normal Absolute Lymph 1.21 Performed By: #### L100.0100, L500.4050 #### [facility] [address] [place], [address] COMPREHENSIVE METABOLIC Collected: 03/25/2018 Status: F Source: [facility] 10:52 AM [facility] REPOSITORY Order Comment: Reason for Laboratory Test Chemotherapy TYPE CODE TESTS RESULT OUT OF RANGE REFERENCE UNITS LAB L501.0100 74-106 mg/dL Normal GLU 98 Result Comment: Please note revised GLUCOSE reference range effective 2017. LAB L501.1000 7-18 mg/dL Normal BUN 17 LAB L501.1100 0.70-1.30 mg/dL Normal CREAT,SERUM 0.90 Result Comment: The validity of the calculated GFR AND GFRAA in patients over 70 years has not been determined. Clinical correlation is essential. LAB L501.1110 >60 mL/min Normal EST GFR 90 Result Comment: Non- GFR Calc LAB L501.1115 >60 mL/min Normal EST GFR - AA 109 Result Comment: GFR Calc LAB L501.1255 ml/min Normal Estimated CRCL 79.65 LAB L501.1300 10-20 RATIO Normal BUN/CRE 19.0 LAB L501.1500 6.4-8. g/dL Normal 2 T PROT 7.1 LAB L501.1800 3.2-5. g/dL Low 0 ALB 2.7 LAB L501.1950 2.2-4. g/dL High 2 GLOB 4.4 LAB L501.2000 0.9-2. RATIO Low 4 A/G 0.6 LAB L501.2200 8.5-10 mg/dL Normal .1 CA 8.6 LAB L501.4100 15-37 U/L Normal AST 21 LAB L501.4305 45-117 U/L Normal ALK P 85 LAB L501.4405 16-61 U/L Normal ALT 30 LAB L501.4600 0.20-1 mg/dL Normal .00 T BILI 1.00 LAB L501.5300 136-14 mmol/L Low 5 NA 132 LAB L501.5600 3.5-5. mmol/L Normal 1 K 3.9 LAB L501.5900 98-107 mmol/L Low CL 94 LAB L501.6100 21.0-3 mmol/L High 2.0 CO2 34.0 LAB L501.6200 5-15 Low GAP 4 Performed By: #### L100.0100, L500.4050 #### [facility] [address] [place], [address] FLUID/WASHING Observed: 03/25/2018 Status: F Source: [place] 12:00 AM [facility] REPOSITORY Patient: ANGEL LUIS GAUTAM : 1950 (67/M) Acct Num: [id number] Phys: Chaitanya Luther DO Unit Num: [id number] Loc: US Specimen: [id number] Received: 03/25/181410 Spec Type: Fluid TISSUES 1 TISSUES: THORACIC FLUID COMMENT The specimen contains reactive mesothelial cells and acute and chronic inflammatory cells. Immunohistochemistry ([id number]) supports the above diagnosis. Reference is made to the patient's hilar mass, fine needle aspiration (EBUS) in which malignant cells derived from non-small cell carcinoma were identified. Case has been reviewed in consultation with Dr. Guerrero who concurs with the above diagnosis. IDC:SJ CYTOLOGY GROSS Received is 110 ml of cloudy yellow fluid labeled with the patient's name and and designated per the requisition as right thoracic fluid. Submitted for cytology preparation including cell block. / CC:cc 03/26/18 TC:5 CPT: 38290, 18103 CYTOLOGY STUDY Slides are reviewed. DIAGNOSIS CYTOLOGY Thoracentesis fluid for cytology (cytospin and cell block): Negative for malignant cells. AM:sonali 03/27/18 HEADER OPERATION: Ultrasound guided thoracentesis, right PRE-OP DIAGNOSIS: Pleural effusion TISSUE SUBMITTED: Right ultrasound guided thoracentesis Signed Michael Francine 03/27/18 <signature on file> Performed By: #### PFLU #### [facility] [address] [place], [place], [address] IMMUNOHISTOCHEMISTRY Observed: 03/25/2018 Status: F Source: [place] 12:00 AM [facility] REPOSITORY Patient: ANGEL LUIS GAUTAM : 1950 (67/M) Acct Num: [id number] Phys: Chaitanya Luther DO Unit Num: [id number] Loc: Specimen: [id number] Received: 03/27/18 - 1410 Spec Type: IMMUNO TISSUES 1 TISSUES: THORACIC FLUID SPECIMEN INFORMATION: Tissue Source: Thoracentesis fluid Clinical Info: Pleural effusion Specimen Number: [id number] CPT code: 60543, 77203 x9 METHODOLOGY: Deparaffinized sections of prefer/formalin-fixed tissue or PAP/DQ stained slides are incubated with monoclonal/polyclonal antibodies/oligonucleotide probes. Localization is made via biotin free immunoperoxidase method. Appropriate controls are performed and reacted as expected. Results on target cell population are indicated in the following table: RESULTS: ANTIBODY / CLONE RESULT AE1-3 (AE1/AE3/PCK26) positive CK7 (OV-TL12/30) positive CK20 (KS20.8) negative Vimentin (V9) positive TTF-1 (8G7G3/1) negative Napsin A (Rabbit Polyclonal) negative Macro (HAM-56) positive CK5-6 (D5 AND 1684) positive Ki-67 (30-9) positive, rare cells CEA (11-7/TF-3HB-1) positive These tests were developed and their performance characteristics determined by [facility]. They may not have been cleared or approved by the U.S. Food and Drug Administration. The FDA has determined that such clearance or approval is not necessary. INTERPRETATION: Thoracentesis fluid: Negative for malignant cells. AM:sonali 03/27/18 PHYSICIAN AND INSTITUTION [address] [address] Signed Michael Francine 03/27/18 <signature on file> Performed By: #### PIMM #### [facility] [address] [place] [address]. [place], [address] RADIATION ONCOLOGY Observed: 03/19/2018 Status: F Source: [place] VISIT 4:18 PM [facility] REPOSITORY [facility] [address] [place] [address]. 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 Plan was made to complete definitive chemoradiation therapy consisting of 6600 cGy delivered in 33 fractions. Treatment Data: Treatment Site: Right Lower Lobe of the lung Current total dose/Total dose planned: 200 cGy / 6600 cGy Fraction number: Chemotherapy: weekly carbo/taxol (Saturday) Subjective: Doing well overall, no current complaints Resp: no increase SOB or cough. No hemoptysis Swallowing: no dysphagia or odynophagia Energy: normal Pain: 0 / 10 Height/Weight/BMI: Height: 5 ft 9 in Weight: 03/19/18: 206 lbs Vital Signs Temperature 98.0 F 03/19/18 09:29 Temperature Source Oral 03/19/18 09:29 Objective: Gen: NAD Resp: CTAB CV: RRR Assessment: Tolerating radiation therapy well overall. Treatment related imaging has been reviewed and approved Reviewed the potential toxicities and timing, none noted at this time Plan: Continue radiation therapy as planned Follow-up next week or sooner if needed Thank you for allowing me to participate in the management and care of your patient. If I may answer any questions in the interim, please do not hesitate to contact me at any time. Chaitanya Luther DO, MS Public Transit Specialist, Department of Radiation Oncology [facility] 03/19/18 1610 <Electronically signed by Chaitanya Luther DO> Date Chaitanya Luther DO Cosigner Signature: Date (if applicable) CC: OPERATIVE REPORT Observed: 03/19/2018 Status: F Source: [place] 1:03 PM [facility] REPOSITORY [facility] Medical Records Department [address] [place] [address] Operative Report 03/18/18 1134 MR#: [id number] Acct: [id number] Name: ANGEL LUIS GAUTAM Rep #: [id number] : 1950 67 From: Nik Miles MD PCP: Semaj Page MD Status: [facility] Y Location: [facility] 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 C 34.2 primary cancer of the right middle lobe of lung Post-Operative Diagnosis: Same Surgery/Procedure Performed:: Placement of a right IJ PowerPort Type of Anesthesia:: MAC Anesthesiologist: Alexandr Otero Description of Procedure: Patient was brought into the surgical suite. Placed in the supine position. Head was placed down and rotated to the left. I ultrasound the right neck identified the internal jugular vein marked the neck appropriately the neck and chest were then sterilely prepped and draped in the usual fashion. Local was injected into the neck. Seldinger's technique was used to gain access to the internal jugular vein. Guidewire was placed over the needle. Fluoroscopy was used to confirm placement of wire. The needle was removed. I injected local onto the chest. Incision was made. Electrocautery was used to create a pocket for the port. A skin gonzales was made in the neck. Dilator and sheath were placed over the guidewire. The dilator and guidewire were removed. Single lumen catheter was placed in the sheath and the sheath was removed. Fluoroscopy was used again to confirm proper length. I tunneled from the pocket created over the collarbone into the neck and brought the catheter down. I cut it to length. I placed locking amount of the catheter. The port onto the catheter. And secured the 2 with a locking hub. It flushed and irrigated well I sutured it into the pocket created with 2 sutures of 0 Prolene. Skin incisions were closed with deep dermal stitches of 3-0 Vicryl. Dermabond was applied. The catheter was accessed it flushed and irrigated well and was flushed with 5 cc of hep flush. Sterile dressings were applied. The patient tolerated the procedure well. - Admit VTE Documentation VTE Present on Admission: No VTE Mechan Device Prophylaxis: SCD's VTE Pharm Prophylaxis ordered?: No Reason prophylaxis not ordered:: Treatment Not Indicated 03/19/18 1303 <Electronically signed by Nik Miles MD> Date Nik Miles MD CC: Nik Miles MD; Semaj Page MD Signed ONCOLOGY VISIT REPORT Observed: 03/19/2018 Status: F Source: [place] 9:45 AM [facility] REPOSITORY [facility] [address] [address] OFFICE VISIT Date of Service: 03/19/18 0935 MR#: [id number] Acct: [id number] Name: ANGEL LUIS GAUTAM Rep #: [id number] : 1950 From: Juan Carlos Plummer MD Age/Sex: 67/M Location: [facility] Status: Signed - Problem List (1) Primary cancer of right middle lobe of lung Status: Acute - Date of Service Date of Service:: 03/19/18 - Chief Complaint Lung cancer - History of Present Illness Patient is a 67-year-old gentleman ex-smoker who started smoking around age 15 averaging 2-1/2-3 packs per day and quit in 2011 and has a baseline COPD dyslipidemia and hypertension. He was in his usual state of health until May 2017 when he experienced an episode of hemoptysis , chest x-ray showed a right middle lobe infiltrate and he was treated for pneumonia and improved. However November 2017 experienced recurrence of hemoptysis in addition to worsening dyspnea and December 11, 2017 CT scan of the chest showed a right middle lobe mass associated with complete atelectasis of the right middle lobe. January 17, 2018 bronchoscopy with EBUS: FINDINGS: The visualized oropharynx appears normal. The vocal cords appeared normal and moved normally with breathing. The subglottic space is normal. The trachea was of normal caliber. The courtney is sharp. The tracheal bronchial trees of the left and right lungs were examined to at least the first subsegmental level. There was scant mucoid secretions noted in the left lower lobe. Within the right tracheal bronchial tree, there was a fungating obstructing mass occupying the orifice of the right middle lobe and right lower lobe. Only a slitlike portion of the right lower lobe orifice could be visualized. The lesion could not be traversed with the bronchoscope. Once the airway inspection was completed, the standard bronchoscope was withdrawn and a convex probe endobronchial ultrasound (EBUS) bronchoscope was inserted through the same route. The endobronchial ultrasound endoscope was then utilized to systematically examine the superior/inferior mediastinal and hilar lymph nodes to assist with fine-needle aspiration. No significant left-sided hilar lymphadenopathy was identified. 2 small lymph nodes were identified at lymph node station #7 (subcarina) and subsequently biopsied In total, 6 transbronchial needle aspirations were completed at 2 different lymph node stations. Transbronchial needle aspiration was performed at lymph node station #7(subcarina) using an Olympus EBUS-TBNA 19-gauge needle and sent for routine cytology. The procedure was guided by ultrasound. 3 samples were obtained. Transbronchial needle aspiration was then performed of the right-sided hilar lesion which encompassed the right middle lobe and right lower lobe takeoff, using an Olympus EBUS-TBNA 19-gauge needle and sent for routine cytology. The procedure was guided by ultrasound. 3 samples were obtained. Rapid on-site evaluation (ELYSIA): Preliminary cytology was suggestive of non-small cell carcinoma. Final pathology results are pending. Following this, the EBUS endoscope was subsequently withdrawn from the patient's airway through the LMA. A conventional bronchoscope was then reinserted into the patient's airway, at which time, endobronchial biopsies were obtained from the right middle lobe orifice, where the fungating mass was most pronounced. A total of 3 endobronchial forceps biopsies were completed. Bronchial washing was completed in the bronchus intermedius. Ice cold saline was infused into the region to facilitate achieving hemostasis. All retained secretions and/or blood was cleared from the patient's airway. The bronchoscope was then withdrawn without complication. The patient was then transferred to the PACU, where they recovered in the usual fashion. IMPRESSION: 1. Large right-sided obstructing lung mass. The fungating endobronchial portions of this lesion obstructed the orifice of the right middle and right lower lobes. The lesion was not able to be traversed by the bronchoscope. 2. Subcarinal lymphadenopathy status post transbronchial needle aspiration 3. Mucoid secretions within the left lower lobe. 4. No significant left-sided hilar adenopathy was identified. Pathology: MICROSCOPIC DIAGNOSIS RML, endobronchial biopsy: Non-small cell carcinoma, favor squamous cell carcinoma DIAGNOSIS CYTOLOGY A. EBUS aspiration #1, site 7: Negative for malignant cells. Adequate for evaluation, lymphocytes present. B. EBUS aspiration #2, site 7: Negative for malignant cells. Mostly blood. A few respiratory epithelial cells. C. EBUS aspiration #3, site 7: Negative for malignant cells. Adequate for evaluation lymphocytes present. D. EBUS aspiration #4, hilar mass: Malignant cells present derived from non-small cell carcinoma. E. EBUS aspiration #5, hilar mass: Malignant cells present derived from non-small cell carcinoma. F. EBUS aspiration #6, hilar mass: Malignant cells present derived from non-small cell carcinoma. G. Site 7, TBNA, fluid (cytospin and cell block): Negative for metastatic carcinoma. See cytology study and comment. H. Hilar mass, TBNA (cytospin and cell block): Malignant cells present derived from non-small cell carcinoma, favor squamous cell carcinoma. See comment. I. RML, washing (cytospin and cell block): A few atypical squamous epithelial cells are noted. ANTIBODY / CLONE RESULT Block H AE1-3 (AE1/AE3/PCK26) positive, focal CK7 (OV-TL12/30) negative CK8 (89orxgN73) positive, focal CK20 (KS20.8) negative TTF-1 (8G7G3/1) negative Napsin A (Rabbit Polyclonal) negative HepPar (OCh1E5) negative RCC (PN-15) negative PSA (ER-PR8) negative CK5-6 (D5 AND 1684) positive P40 (BC28) positive PET CT January 27, 2018: IMPRESSION: 1. ABNORMAL EXAMINATION INDICATIVE OF MALIGNANT VIABLE NEOPLASM. 2. Increased glucose concentration identified in the right thoracic perihilum, infrahilar region fulfills quantitative criteria for viable neoplasm. (Rajiv et al, Journal of Clinical Oncology 16:2142, 1998). 3. Subtle increased glucose concentration observed in the right lower lateral hemithorax pulmonary parenchyma corresponding to apparent atelectatic change likely represents activated leukocytes associated with a localized inflammatory process-obstructive pneumonitis. 4. The increase in glucose concentration observed in the descending thoracic, as well as abdominal aorta is commensurate with activated leukocytes associated with atherosclerotic plaque formation. (Michael et al, Clinical Nuclear Medicine 29:93, 2004). 5. Asymmetric increased glucose concentration visualized in the left diaphragmatic crura is most consistent with a component muscle tension artifact. Brain MRI January 29, 2018: No evidence of metastases PFTs January 2018: INTERPRETATION: Forced expiration spirometry demonstrates the presence of a very severe large airways obstructive ventilatory defect. There was a significant response to aerosolized bronchodilators. Spirograms are of good quality and do not plateau indicating slow emptying of the lungs. Body plethysmography was performed and reveals an elevated RV to 232% of predicted, indicative of underlying air trapping. Diffusing capacity by single breath CO severely reduced at 38% of predicted. IMPRESSION: These pulmonary function studies demonstrate the presence of a partially reversible very severe large airways obstructive ventilatory defect with associated air trapping and symmetric reduction in diffusing capacity. March 04, 2018: Surgical consultation at [facility] found the patient a poor surgical candidate due to insufficient pulmonary reserve. Treatment: Concomitant chemo (weekly carbotaxol) with radiation March 19, 2018- - Past Medical/Social History Past Medical History Cancer: Lung cancer,Skin cancer Other Cancer History: BCC MULTIPLE Social History Social History: No changes Smoking Status Former smoker Review of Systems Constitutional:: Denies: Fever, Sweats, Weight loss, Appetite change, Chills Cardiovascular:: Reports: Dyspnea on exertion. Denies: Chest pain, Palpitations, Orthopnea, PND, Shortness of breath Respiratory: Reports: Shortness of breath upon exertion. Denies: Cough, Hemoptysis, Shortness of Breath, Wheezing Gastrointestinal:: Denies: Abdominal pain, Nausea, Vomiting, Diarrhea, Constipation, Hematochezia Genitourinary: Denies: Dysuria, Hematuria, 15, Flank pain Musculoskeletal:: Denies: Back pain, Myalgia, Arthralgia Skin: Denies: Rash, Skin Changes, Wounds Neurological:: Denies: Headache, Dizziness, Visual changes, Tinnitus, Hearing loss Psychiatric: Denies: Anxiety, Depression, Homicidal Ideations, Suicidal Ideations Vital Signs Height 5 ft 9 in Weight: 93.44 kg Weight in Pounds 206.0 lbs BMI 29.9 Pulse Ox 96 - Physical Exam General: Alert, Oriented x3, No apparent distress, - - ECOG 1 HEENT: Atraumatic, PERRLA, EOMI, Normocephalic Oropharynx:: Dry mucosa Neck:: Supple, Trachea midline, - - Port okay. Negative for: JVD, bilateral Cardiac:: Regular rate, Regular rhythm, Normal S1, Normal S2. Negative for: Murmur Lungs: Clear to auscultation, Excusion symmetrical. Negative for: Rhonchi, Wheezes Abdomen:: Soft, Non-tender, Non-distended. Negative for: Hepatosplenomegaly Extremities:: Negative for: Cyanosis, Edema Neurological: Neuro grossly intact Skin:: Negative for: Lesions, Rash, Petechiae, Ecchymosis Psychiatric:: Appropriate affect, Euthymic Lymphatics:: Negative for: Cervical lymphadenopathy, Supraclavicular lymphadenopathy Laboratory Data: Reviewed in EMR Diagnostic Data: Diagnostic Data PET, CT Tumor Imaging 01/27/18 12:45 IMPRESSION: 1. ABNORMAL EXAMINATION INDICATIVE OF MALIGNANT VIABLE NEOPLASM. 2. Increased glucose concentration identified in the right thoracic perihilum, infrahilar region fulfills quantitative criteria for viable neoplasm. (Rajiv et al, Journal of Clinical Oncology 16:2142, 1997). 3. Subtle increased glucose concentration observed in the right lower lateral hemithorax pulmonary parenchyma corresponding to apparent atelectatic change likely represents activated leukocytes associated with a localized inflammatory process-obstructive pneumonitis. 4. The increase in glucose concentration observed in the descending thoracic, as well as abdominal aorta is commensurate with activated leukocytes associated with atherosclerotic plaque formation. (Michael et al, Clinical Nuclear Medicine 29:93, 2004). 5. Asymmetric increased glucose concentration visualized in the left diaphragmatic crura is most consistent with a component muscle tension artifact. Electronic Signature Keith Patel D.O. 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 Clinical and radiologic staging is consistent with an early stage localized disease but patient not a surgical candidate due to poor pulmonary reserve. Comorbid conditions: COPD, hypertension and dyslipidemia. Plan: I reviewed the NCCN guidelines and advised definitive combined chemoradiation with an intent to cure. The first phase of treatment will be concomitant weekly carbo- taxol with radiation and the second phase will follow with 2 cycles of carbo-taxol. Start the concomitant chemoradiation March 19, 2018. Monitor weekly during the concomitant face. Patient was seen was his impression and plan discussed Medications: Prescriptions This Visit Medication Instructions Recorded Guaifenesin/Codeine Phosphate 10 ml PO PRN PRN 03/06/18 [Virtussin AC Liquid] Primary Care Provider: Semaj Page MD Referring Provider: Antonio Chin DO 03/19/18 0945 <Electronically signed by Juan Carlos Plummer MD> Date Juan Carlos Plummer MD Cosigner Signature: Date (if applicable) CC: DISCHARGE INSTRUCTION Observed: 03/18/2018 Status: F Source: [place] 11:39 AM [facility] REPOSITORY [facility] Medical Records Department [address] [place] [address] Instructions for Home/Discharge Instructions 03/18/18 1138 MR#: [id number] Acct: [id number] Name: ANGEL LUIS GAUTAM Rep #: [id number] : 1950 67 From: Nik Miles MD PCP: Semaj Page MD Status: [facility] Discharge Diet: No Restrictions - Pain medication may cause nausea. You should typically eat light foods as you take your pain medication. Discharge Activity: May Shower - with the bandage in place 1-2 days after surgery. DO NOT SHOWER WHEN YOUR PORT IS ACCESSED. Additional Activity Instructions:: May not drive, work with heavy equipment, or sign legal documents for [address] if you are no longer taking narcotic pain medications. You may drive when you are no longer taking pain medications. Additional Dressing/Incision Instructions:: Leave the bandage on for 2-3 days. When you remove the bandage, leave the steri-strips intact until they fall off. Allergies/Adverse Reactions: Allergies No Known Allergies Allergy (Verified 03/12/18 09:14) Medications to take at Discharge Hydrochlorothiazide [Hctz] 25 mg PO DAILY 06/16/17 Metoprolol Tartrate [Lopressor (beta shorty)] 50 mg PO BID 06/16/17 Simvastatin [Zocor] 40 mg PO QHS 06/16/17 [place]-3 Fatty Acids/Fish Oil [Fish Oil 1,000 mg Capsule] 1 ea PO DAILY 12/11/17 Albuterol IH (ProAir) [Proair Hfa] 1 puff INHALATION Q4H PRN PRN #1 inhaler 12/12/17 Guaifenesin [Mucinex] 1,200 mg PO BID 01/14/18 tiotropium 2.5 mcg-olodaterol 2.5 mcg/actuation mist for inhalation 2 puff INHALATION Q24H #4 g 03/04/18 Guaifenesin/Codeine Phosphate [Virtussin AC Liquid] 10 ml PO PRN PRN 03/06/18 Lidocaine/Prilocaine [Lidocaine-Prilocaine Cream] 30 gm TP DAILY PRN PRN #1 cream..g. 03/10/18 Ondansetron [Zofran Odt] 4 mg PO Q8H PRN PRN 10 Days #30 tab.rapdis 03/10/18 Primary Care Physician: Semaj Page MD [Primary Care Provider] - Test Results: Test results from this visit will be discussed in further detail at your follow-up appointment, if applicable. Please Follow Up With: Nik Miles MD - [phone] When: Please plan to follow up in 7 days in the office. 03/18/18 1139 <Electronically signed by Nik Miles MD> Date Nik Miles MD CC: Semaj Page MD CHEST 1 VIEW Observed: 03/18/2018 Status: F Source: [place] (PORTABLE) 11:38 AM [facility] REPOSITORY [facility] Imaging Services [address] [place] [address] Chest 1 View (Portable) MR#: [id number] Acct: [id number] Name: ANGEL LUIS GAUTAM Rep #: [id number] : 1950 M 67 From: David Amos DO PCP: Semaj Page MD Status: [facility] Study: Chest 1 View (Portable) Date of Exam: 03/18/18 Exam# [id number] Ordering Dr: Nik Miles MD STUDY: X-RAY CHEST REASON FOR EXAM: Male, 67 years old. Post port placement TECHNIQUE: Single AP portable view of the chest. COMPARISON: 12/11/2017 FINDINGS: Right chest wall Mediport has been placed without pneumothorax. Right lower lobe consolidation and effusion, moderate. Left lung is clear. Normal size heart. Normal mediastinum and mercedes. Normal visualized pulmonary arteries. Normal visualized aortic arch and descending thoracic aorta. Normal visualized thoracic spine. Normal visualized ribs, clavicles, and shoulders. There is no demonstrated abnormality of the visualized soft tissue structures of the upper abdomen. RAD/Chest 1 View (Portable) IMPRESSION: Right chest wall Mediport placement without pneumothorax. Right lower lobe airspace disease and effusion Electronically Signed: David Amos DO at 12:28 EDT Tel , Service support , CC: Nik Miles MD; Semaj Page MD Rn Unit Manager: Signed SURGERY VISIT REPORT Observed: 03/11/2018 Status: F Source: [place] 9:[address] [facility] [address] [place] [address] [address] [place] [address] OFFICE VISIT Date of Service: 03/11/18 MR#: [id number] Acct: [id number] Name: ANGEL LUIS GAUTAM Rep #: [id number] : 1950 Provider: Nik Miles MD Age/Sex: 67/M Location: [facility] Status: Signed Intake Vital Signs03/11/18 Height 5 ft 9 in 03/11/18 Weight: 203 lb Intake Visit Reasons: Port Placment Consult Chief Complaint: Chemotherapy education- concomitant chemoradiation, carboplatin/Taxol [employer] Work[employer] Required: No Is patient in pain?: No Allergies No Known Allergies Allergy (Verified 03/11/18 09:13) Medications Hydrochlorothiazide [Hctz] 25 mg PO DAILY 06/16/17 [History Confirmed 03/11/18] Metoprolol Tartrate [Lopressor (beta shorty)] 50 mg PO BID 06/16/17 [History Confirmed 03/11/18] Simvastatin [Zocor] 40 mg PO QHS 06/16/17 [History Confirmed 03/11/18] [place]-3 Fatty Acids/Fish Oil [Fish Oil 1,000 mg Capsule] 1 ea PO DAILY 12/11/17 [History Confirmed 03/11/18] Albuterol IH (ProAir) [Proair Hfa] 1 puff INHALATION Q4H PRN PRN #1 inhaler 12/12/17 [Rx Confirmed 03/11/18] Guaifenesin [Mucinex] 1,200 mg PO BID 01/14/18 [History Confirmed 03/11/18] tiotropium 2.5 mcg-olodaterol 2.5 mcg/actuation mist for inhalation 2 puff INHALATION Q24H #4 g 03/04/18 [Rx Confirmed 03/11/18] Guaifenesin/Codeine Phosphate [Virtussin AC Liquid] 10 ml PO PRN PRN 03/06/18 [History Confirmed 03/11/18] Lidocaine/Prilocaine [Lidocaine-Prilocaine Cream] 30 gm TP DAILY PRN PRN #1 cream..g. 03/10/18 [Rx Confirmed 03/11/18] Ondansetron [Zofran Odt] 4 mg PO Q8H PRN PRN 10 Days #30 tab.rapdis 03/10/18 [Rx Confirmed 03/11/18] PFSH Medical History Primary cancer of right middle lobe of lung (Acute) Stage 4 very severe COPD by GOLD classification (Chronic) Tobacco abuse, in remission (Chronic) Educational circumstance (Acute) Hypertension (Chronic) Hyperlipidemia (Chronic) Hemoptysis (Acute) Pneumonia (Acute) Surgical History H/O hernia repair (Resolved) EBUS (Resolved) Family History Father Myocardial infarction Hypertension Mother Pneumonia Social History Smoking Status: Former smoker quit date: 07/01/11 pack-years: 80 alcohol intake: current alcohol intake frequency: holidays/special occasions only substance use type: does not use HPI HPI HPI: ANGEL LUIS GAUTAM, is a 67 M who presents to the office today for evaluation for port placement. Patient is recently diagnosed with non-small cell lung carcinoma favoring squamous cell in the right lobe. He presents to my office today for evaluation for placement of a PowerPort to start to undergo chemotherapy. He is not currently on any anticoagulation. He has been off his fish oil for 2 weeks. He has never had a port before in the past. ROS General General: Yes fatigue; no weight change, appetite, colon cancer, breast cancer or weakness HEENT HEENT: No difficulty swallowing, eye injury, eye surgery, swollen glands or hoarseness Endo Endocrine: No thyroid disease, diabetes mellitus, thyroid cancer, Hair loss, heat intolerance or cold intolerance Skin Skin: No rash or changing moles Breast Breast: No left breast lump, right breast lump, nipple discharge, breast pain, abnormal mammogram, abnormal US or breast enlargement Musc Musculoskeletal: Yes gout; no back problems, arthritis, rheumatoid arthritis or joint pain Cardio Cardiovascular: Yes high blood pressure; no murmur, pacemaker, heart disease, atrial fibrillation, heart attack, heart stent, palpitations, shortness of breat with exertion or chest pain Psych Psychiatric: No depression, anxiety or hearing voices Resp Respiratory: Yes shortness of breath, No sleep apnea, Yes cough, Yes COPD, No asthma, No emphysema, No wheezing Gastro Gastrointestinal: No abdominal pain, No nausea or vomiting, No diarrhea, No constipation, No blood in stool, No acid reflux, No hemorrhoids, No ulcers, No gallbladder problem, No black,tarry stools Guille Hematologic: No blood thinners, No blood disorders, No bleeding, No anemia, No blood clots Neuro Neurologic: No system reviewed and no additional complaints, except as docu, No as per HPI, No abnormal walking, No abnormal hearing, No abnormal movements, No abnormal speech, No behavioral changes, No burning sensations, No confusion, No seizure-like activity, No unsteadiness, No dizziness, No localized weakness, No frequent falls, No headache(s), No lack of coordination, No loss of vision, No memory loss, No numbness, No other visual disturbances, No radiating pain, No restless legs, No sensory deficit, No fainting, No tingling, No tremor(s), No weakness, No other Exam Const General: well developed, no acute distress, well hydrated Orientation: oriented to person, oriented to place, oriented to time [facility] Head: normocephalic, atraumatic Ears: external ears normal Mouth: moist mucous membranes Eyes Sclera: sclerae normal Pupils: normal by confrontation Neck Neck: no lymphadenopathy noted Neck mass: No Thyroid: symmetrical, thyroid normal Chest Chest palpation AND inspection: normal inspection of the chest Breast Palpation: No nipple discharge Resp Effort AND Inspection: normal respiratory effort Auscultation: clear to auscultation bilaterally Percussion: percussion normal Cardio Rate: regular rate Rhythm: regular rhythm Heart Sounds: no murmurs GI Palpation: soft, no masses, no hepatosplenomegaly, nontender Rectal Exam: other Other: Rectal exam deferred. Extrem General: no clubbing, cyanosis or edema, normal to inspection Assessment AND Plan Problems 1. Primary cancer of right middle lobe of lung C34.2 2. Vascular catheter fitting or adjustment Z45.2 Plan I plan to perform a right internal jugular port a cath placement. The planned surgical procedure was discussed extensively with the patient. The risks, benefits, anticipated outcomes and possible complication were mentioned. My staff has also explained the procedure in understandable terms and the patient was given the option to take printed material concerning the planned procedure. The patient had the opportunity to ask questions concerning the planned procedure. The patient freely consents to the planned procedure. Coding Level of Care Code Off vis,new,level 3 Diagnoses Primary cancer of right middle lobe of lung C34.2 Vascular catheter fitting or adjustment Z45.2 03/11/18 0924 <Electronically signed by Nik Miles MD> Date Nik Miles MD Cosign Signature: Date (if applicable) CC: Semaj Page MD; Juan Carlos Plummer MD ONCOLOGY VISIT REPORT Observed: 03/10/2018 Status: F Source: [place] 1:04 PM [facility] REPOSITORY [facility] [address] [place] [address] OFFICE VISIT Date of Service: 03/10/1855 MR#: [id number] Acct: [id number] Name: ANGEL LUIS GAUTAM Rep #: [id number] : 1950 From: Cecy PALACIOS Age/Sex: 67/M Location: [facility] Status: Signed Subjective - Date of Service Date of Service:: 03/10/18 - Chief Complaint Chemotherapy education- concomitant chemoradiation, carboplatin/Taxol - History of Present Illness Patient is a 67-year-old gentleman ex-smoker who started smoking around age 15 averaging 2-1/2-3 packs per day and quit in 2011 and has a baseline COPD dyslipidemia and hypertension. He was in his usual state of health until May 2017 when he experienced an episode of hemoptysis , chest x-ray showed a right middle lobe infiltrate and he was treated for pneumonia and improved. However November 2017 experienced recurrence of hemoptysis in addition to worsening dyspnea and December 11, 2017 CT scan of the chest showed a right middle lobe mass associated with complete atelectasis of the right middle lobe. January 17, 2018 bronchoscopy with EBUS: FINDINGS: The visualized oropharynx appears normal. The vocal cords appeared normal and moved normally with breathing. The subglottic space is normal. The trachea was of normal caliber. The courtney is sharp. The tracheal bronchial trees of the left and right lungs were examined to at least the first subsegmental level. There was scant mucoid secretions noted in the left lower lobe. Within the right tracheal bronchial tree, there was a fungating obstructing mass occupying the orifice of the right middle lobe and right lower lobe. Only a slitlike portion of the right lower lobe orifice could be visualized. The lesion could not be traversed with the bronchoscope. Once the airway inspection was completed, the standard bronchoscope was withdrawn and a convex probe endobronchial ultrasound (EBUS) bronchoscope was inserted through the same route. The endobronchial ultrasound endoscope was then utilized to systematically examine the superior/inferior mediastinal and hilar lymph nodes to assist with fine-needle aspiration. No significant left-sided hilar lymphadenopathy was identified. 2 small lymph nodes were identified at lymph node station #7 ([place]car[place]) and subsequently biopsied In total, 6 transbronchial needle aspirations were completed at 2 different lymph node stations. Transbronchial needle aspiration was performed at lymph node station #7(subcar[place]) using an Olympus EBUS-TBNA 19-gauge needle and sent for routine cytology. The procedure was guided by ultrasound. 3 samples were obtained. Transbronchial needle aspiration was then performed of the right-sided hilar lesion which encompassed the right middle lobe and right lower lobe takeoff, using an Olympus EBUS-TBNA 19-gauge needle and sent for routine cytology. The procedure was guided by ultrasound. 3 samples were obtained. Rapid on-site evaluation (ELYSIA): Preliminary cytology was suggestive of non-small cell carcinoma. Final pathology results are pending. Following this, the EBUS endoscope was subsequently withdrawn from the patient's airway through the LMA. A conventional bronchoscope was then reinserted into the patient's airway, at which time, endobronchial biopsies were obtained from the right middle lobe orifice, where the fungating mass was most pronounced. A total of 3 endobronchial forceps biopsies were completed. Bronchial washing was completed in the bronchus intermedius. Ice cold saline was infused into the region to facilitate achieving hemostasis. All retained secretions and/or blood was cleared from the patient's airway. The bronchoscope was then withdrawn without complication. The patient was then transferred to the PACU, where they recovered in the usual fashion. IMPRESSION: 1. Large right-sided obstructing lung mass. The fungating endobronchial portions of this lesion obstructed the orifice of the right middle and right lower lobes. The lesion was not able to be traversed by the bronchoscope. 2. Subcarinal lymphadenopathy status post transbronchial needle aspiration 3. Mucoid secretions within the left lower lobe. 4. No significant left-sided hilar adenopathy was identified. Pathology: MICROSCOPIC DIAGNOSIS RML, endobronchial biopsy: Non-small cell carcinoma, favor squamous cell carcinoma DIAGNOSIS CYTOLOGY A. EBUS aspiration #1, site 7: Negative for malignant cells. Adequate for evaluation, lymphocytes present. B. EBUS aspiration #2, site 7: Negative for malignant cells. Mostly blood. A few respiratory epithelial cells. C. EBUS aspiration #3, site 7: Negative for malignant cells. Adequate for evaluation lymphocytes present. D. EBUS aspiration #4, hilar mass: Malignant cells present derived from non-small cell carcinoma. E. EBUS aspiration #5, hilar mass: Malignant cells present derived from non-small cell carcinoma. F. EBUS aspiration #6, hilar mass: Malignant cells present derived from non-small cell carcinoma. G. Site 7, TBNA, fluid (cytospin and cell block): Negative for metastatic carcinoma. See cytology study and comment. H. Hilar mass, TBNA (cytospin and cell block): Malignant cells present derived from non-small cell carcinoma, favor squamous cell carcinoma. See comment. I. RML, washing (cytospin and cell block): A few atypical squamous epithelial cells are noted. ANTIBODY / CLONE RESULT Block H AE1-3 (AE1/AE3/PCK26) positive, focal CK7 (OV-TL12/30) negative CK8 (20jpudD09) positive, focal CK20 (KS20.8) negative TTF-1 (8G7G3/1) negative Napsin A (Rabbit Polyclonal) negative HepPar (OCh1E5) negative RCC (PN-15) negative PSA (ER-PR8) negative CK5-6 (D5 AND 1684) positive P40 (BC28) positive PET CT January 27, 2018: IMPRESSION: 1. ABNORMAL EXAMINATION INDICATIVE OF MALIGNANT VIABLE NEOPLASM. 2. Increased glucose concentration identified in the right thoracic perihilum, infrahilar region fulfills quantitative criteria for viable neoplasm. (Rajiv et al, Journal of Clinical Oncology 16:2142, 1998). 3. Subtle increased glucose concentration observed in the right lower lateral hemithorax pulmonary parenchyma corresponding to apparent atelectatic change likely represents activated leukocytes associated with a localized inflammatory process-obstructive pneumonitis. 4. The increase in glucose concentration observed in the descending thoracic, as well as abdominal aorta is commensurate with activated leukocytes associated with atherosclerotic plaque formation. (Michael et al, Clinical Nuclear Medicine 29:93, 2004). 5. Asymmetric increased glucose concentration visualized in the left diaphragmatic crura is most consistent with a component muscle tension artifact. Brain MRI January 29, 2018: No evidence of metastases PFTs January 2018: INTERPRETATION: Forced expiration spirometry demonstrates the presence of a very severe large airways obstructive ventilatory defect. There was a significant response to aerosolized bronchodilators. Spirograms are of good quality and do not plateau indicating slow emptying of the lungs. Body plethysmography was performed and reveals an elevated RV to 232% of predicted, indicative of underlying air trapping. Diffusing capacity by single breath CO severely reduced at 38% of predicted. IMPRESSION: These pulmonary function studies demonstrate the presence of a partially reversible very severe large airways obstructive ventilatory defect with associated air trapping and symmetric reduction in diffusing capacity. March 04, 2018: Surgical consultation at [facility] found the patient a poor surgical candidate due to insufficient pulmonary reserve. - Interval History The patient is presenting to clinic accompanied by spouse for chemotherapy education. Tentatively scheduled for tomorrow for consultation for port placement and has consultation with Dr. Luther subsequent to our visit today. - Past Medical/Social History Past Medical History Cancer: Lung cancer Social History Social History: No changes Smoking Status Former smoker Review of Systems Constitutional:: Reports: Fatigue. Denies: Fever, Sweats, Weight loss, Appetite change, Chills Cardiovascular:: Reports: Dyspnea on exertion. Denies: Chest pain, Palpitations, Orthopnea, PND, Shortness of breath Respiratory: Denies: Cough, Hemoptysis, Wheezing Gastrointestinal:: Denies: Abdominal pain, Nausea, Vomiting, Diarrhea, Constipation, Melena, Hematochezia Genitourinary: Denies: Dysuria, Hematuria, 15, Flank pain Musculoskeletal:: Denies: Back pain, Myalgia, Arthralgia Skin: Denies: Rash, Skin Changes, Wounds Neurological:: Denies: Headache, Dizziness, Numbness, Tingling, Visual changes, Tinnitus, Hearing loss Psychiatric: Denies: Anxiety, Depression, Homicidal Ideations, Suicidal Ideations Vital Signs Height 5 ft 9 in Weight: 202 lb 6.4 oz Weight in Pounds 202.4 lbs Pulse Ox 91 - Physical Exam General: Alert, Oriented x3, No apparent distress HEENT: Atraumatic, Normocephalic, - - wears glasses Psychiatric:: Appropriate affect, Euthymic Laboratory Data: Laboratory Tests WBC 9.8 (4.4-11.0) K/mm3 RBC 4.61 (4.6-6.2) M/mm3 Hgb 12.9 L (13.0-16.5) g/dl Hct 39.8 L (40-54) % Diagnostic Data: Diagnostic Data PET, CT Tumor Imaging 01/27/18 12:45 IMPRESSION: 1. ABNORMAL EXAMINATION INDICATIVE OF MALIGNANT VIABLE NEOPLASM. 2. Increased glucose concentration identified in the right thoracic perihilum, infrahilar region fulfills quantitative criteria for viable neoplasm. (Rajiv et al, Journal of Clinical Oncology 16:2142, 1998). 3. Subtle increased glucose concentration observed in the right lower lateral hemithorax pulmonary parenchyma corresponding to apparent atelectatic change likely represents activated leukocytes associated with a localized inflammatory process-obstructive pneumonitis. 4. The increase in glucose concentration observed in the descending thoracic, as well as abdominal aorta is commensurate with activated leukocytes associated with atherosclerotic plaque formation. (Michael et al, Clinical Nuclear Medicine 29:93, 2004). 5. Asymmetric increased glucose concentration visualized in the left diaphragmatic crura is most consistent with a component muscle tension artifact. Electronic Signature Keith Patel D.O. 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 Clinical and radiologic staging is consistent with an early stage localized disease but patient not a surgical candidate due to poor pulmonary reserve. 1. NSCLC, squamous- It has been proposed the patient begin definitive combined chemoradiation with an intent to cure. The first phase of treatment will be concomitant weekly carbotaxol with radiation, followed by 2 cycles of carboplatin/Taxol consolidation. The patient has been thoroughly educated to risks/benefits associated with chemotherapy. Specifically, he has been educated to potential side effects, recommendations for symptom management, and circumstances in which he should contact provider immediately, such as the development of any signs/symptoms of infection inclusive of temperature > 100.4. Encouraged to go directly to ED should fever occur outside normal clinic hours. He has been provided written educational information and after hours contact information and prescriptions for prn antiemetics/EMLA cream. Greater than 50% of this one hour visit was spent in counseling and a significant amount of time was allotted for questions. All the patient's concerns were addressed to his satisfaction and he is agreeable to proceed. Tentatively, he will commence with cycle 1 on 03/19/18. Comorbid conditions: COPD, hypertension and dyslipidemia. Cecy Eng, MSN, BIOLOGICAL SCIENCE TECHNICIAN FISH-C, AOCNP Medications: Prescriptions This Visit Medication Instructions Recorded Guaifenesin/Codeine Phosphate 10 ml PO PRN PRN 03/06/18 [Virtussin AC Liquid] Primary Care Provider: Semaj Page MD Referring Provider: Antonio Chin DO - Problem List (1) Primary cancer of right middle lobe of lung Status: Acute (2) Educational circumstance Status: Acute 03/10/18 1304 <Electronically signed by Cecy MARTINEZC> Date Cecy Eng NP-C Cosigner Signature: Date (if applicable) CC: CONSULTATION Observed: 03/10/2018 Status: F Source: [place] 12:53 PM [facility] REPOSITORY [facility] Medical Records Department [address] [place] [id number] Consultation 03/10/18 1238 MR#: [id number] Acct: [id number] Name: ANGEL LUIS GAUTAM Rep #: [id number] : 1950 67 From: Chaitanya Luther DO PCP: Semaj Page MD Status: REG RCR Y Location: [facility] Date of Service: 03/10/18 Referring Provider: Dr. 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 History of Present Illness: 12/11/2017: Due to pneumonia and hemoptysis chest x-ray was performed which demonstrated increasing right middle lobe consolidation. 12/11/2017: CT chest with contrast was performed which demonstrated complete atelectasis of the right middle lobe. There is an obstructing mass which encompasses the right middle lobe bronchus measuring about 3.4 x 3 cm. No pleural effusion or pneumothorax is identified. There is evidence for shotty mediastinal lymph nodes and normal hilar regions. 01/17/2018: Bronchoscopy with EBUS was performed. Within the right tracheobronchial tree there was a fungating obstructing mass occupying the orifice of the right middle lobe and right lower lobe with only a slitlike portion of the right lower lobe orifice visualized, this area could not be traversed with the bronchoscope. Ultrasound-guided biopsy of level 7 and the hilar mass were performed as well as right middle lobe washing. Biopsy of the hilar mass demonstrated evidence for non-small cell carcinoma most consistent with squamous cell histology. Biopsy of level 7 did not demonstrate any evidence of malignant cells in the right middle lobe washing demonstrated a few atypical squamous epithelial cells. 01/27/2018: PET scan was completed which demonstrated increase in glucose metabolism defined in the right thoracic perihilum, infrahilar region generating a calculated SUV of 14.2 with a maximum axial diameter of the corresponding lesion on CT measuring 4.8 x 8.6 cm. There is heterogeneous increase in glucose concentration observed in the right lower lateral hemithorax pulmonary parenchyma contiguous to the apparent visualized atelectatic change on CT with a degenerated SUV of 1.7. There is no evidence for lymph node metastases or distant metastases. 01/31/2018: MRI of the brain was completed which demonstrated no evidence for metastatic disease. 02/11/2018: PFTs were completed which demonstrated very severe large airway obstructive ventilatory defect with significant response to aerosolized bronchodilators. DLCO is 38% of predicted, FEV1 25% of predicted. 02/25/2018: Patient was evaluated by thoracic surgery at [facility] it was deemed to not be a good candidate for surgical resection of the primary lung tumor given his pulmonary function. Recommendation was to complete definitive chemoradiation therapy. Radiation Treatment History: No previous history of radiation therapy. No pacemaker and no diagnosis of collagen vascular disease. Interval History: Patient presents for initial consultation. He reports that he has had increasing cough and shortness of breath for at least 6 months now and also had occasional hemoptysis. Last episode of hemoptysis was in November. Patient reports approximately a 20 pound weight loss over the last couple of months and reports that he has been attempting to lose weight. He reports a normal appetite and denies having any fatigue. The patient denies dysphagia, headaches, vision changes, chest pain, bone pain. He reports being able to take care of all of his daily activities without any difficulty. He reports shortness of breath when climbing stairs but denies any shortness of breath walking on flat ground even for long distances. He denies having to use oxygen. After being diagnosed with COPD he has initiated an inhaler which he reports has helped him quite a bit. He reports that he has not smoked any cigarettes since 2011. He denies having any other problems or concerns at this time. Family History (Last Reviewed 03/10/18 @ 11:04 by Alona Lunsford RN) Father Myocardial infarction Hypertension Mother Pneumonia Medical History (Last Updated 03/10/18 @ 11:04 by Alona Lunsford RN) Hypertension (Chronic) Hyperlipidemia (Chronic) Hemoptysis (Acute) Pneumonia (Acute) Surgical History (Last Updated 03/10/18 @ 11:04 by Alona Lunsford RN) H/O hernia repair (Resolved) as baby EBUS (Resolved) Social History - Tobacco Smoking Status Former smoker Smokeless tobacco usage: Never Years used: 40 Passive smoke exposure: No Social History - Substance Drug use: No Caffeine use [drinks/day]: 2 Alcohol use: Yes Type of alcohol: HOLIDAYS/SPECIAL OCCASIONS ONLY Social History - Living Arrangements Patients Living Arrangements With Significant Other Home Medications Medication Instructions Recorded Allergy/AdvReac Type Severity Reaction Status Date / Time No Known Allergies Allergy Verified 03/10/18 11:00 Health Maintenance Do you regularly see your Yes primary care physician? Have you ever had a No colonoscopy? I have reviewed the medical, surgical, and other pertinent history in details and have updated medication and allergy information in the electronic medical record. Review of Systems: A 12-point review of systems was completed and was negative except for what is noted in the HPI/Interval History and by the nurse. Height/Weight/BMI: Height: 5 ft 9 in Weight: 91.807 kg BMI: 29.9 Vital Signs Temperature 98.5 F 03/10/18 11:02 Temperature Source Oral 03/10/18 11:02 Physical Exam: ECO KARNOFSKY SCORE: 80% CONSTITUTIONAL: Well-developed, well-nourished, and in no apparent distress. HEENT: Mucous membranes moist. No evidence of thrush or lesions within the visualized oropharynx or oral cavity. No trismus. Pupils are equal, round, and reactive to light and accommodation. Extraocular movements are intact. Sclerae are anicteric. NECK: Supple,with no thyromegaly, and non-tender. Trachea midline. No cervical or supraclavicular adenopathy noted. CARDIAC: Regular rate and rhythm. Normal S1, S2. No murmurs, rubs, or gallops. PULMONARY/CHEST: Lungs are clear to auscultation and percussion bilaterally. Reduced lung sounds in the right mid and lower regions. Mild rhonchi diffusely bilaterally. No wheezes or crackles noted. No increased work of breathing. ABDOMINAL: Abdomen soft, non-tender, non-distended. No hepatomegaly. Normoactive bowel sounds in all four quadrants. No guarding, rebound. BACK: Straight and aligned. No CVA tenderness. Axial skeleton non-tender to percussion. EXTREMITIES: Full range of motion in all four extremities, with normal strength equally and symmetrically. No evidence of edema. No clubbing. NEUROLOGICAL EXAM: Alert and oriented x 3. Cranial nerves II through XII are grossly intact. No focal neurological deficit. Speech is fluent. There is no upper or lower extremity sensory deficit or motor deficit. Muscle strength is 5/5 in all muscle groups. Gait and posture are steady. PSYCHIATRIC: Appropriate mood and affect for the clinical situation. 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 Clinically the patient is a relatively good performance status and has some mild increase in symptoms related to right middle lobe and right lower lobe obstruction. I had a detailed discussion with the patient regarding the diagnosis and treatment options for locally advanced non-small cell lung cancer. I reviewed the findings the PET scan which demonstrated evidence for disease involving the right lung and no evidence for disease spread to the mediastinum or beyond. The patient was evaluated by thoracic surgery at [facility] but due to poor pulmonary function was deemed to be not fit for surgery. I discussed that definitive management for stage III lung cancer generally includes concurrent chemoradiation therapy for patients with sufficient performance status to tolerate aggressive treatment and hypofractionated radiation therapy alone for those unable to tolerate chemotherapy. Given the size and location of the primary disease I do not think that SBRT would be a feasible treatment. The logistics of radiation therapy were discussed in detail including CT simulation, treatment planning, and daily fractionated radiation for 6-6-1/2 weeks with weekly physician visits. I discussed the potential acute and late toxicities associated with radiation therapy to the lung and mediastinum and this would include but is not limited to fatigue, skin irritation, esophagitis, nausea/vomiting, weight loss, pneumonitis/cough, chronic worsening of lung function/lung fibrosis, esophageal stenosis, potential for increased risk of cardiac event (myocardial infarction, congestive heart failure), nerve damage including to the brachial plexus or spinal cord, and secondary malignancy. After full discussion of the risks, benefits, and alternatives to radiation therapy the patient was in agreement with my recommendation to complete definitive chemoradiation and informed consent was obtained. He will return for CT simulation tomorrow, 03/11/18. He was instructed to call with any further questions or concerns in the interim. Thank you for allowing me to participate in the management and care of your patient. If I may answer any questions in the interim, please do not hesitate to contact me at any time. Chaitanya Luther DO, MS Public Transit Specialist, Department of Radiation Oncology [facility] 03/10/18 1253 <Electronically signed by Chaitanya Luther DO> Date Chaitanya Luther DO Cosigner Signature (if applicable): Date CC: Antonio Chin D.O.; Semaj Page MD; Kiel Mcdonnell MD; Juan Carlos Plummer MD Signed CBC W/DIFF, AUTOMATED Collected: 03/10/2018 Status: F Source: [place] 8:46 AM [facility] REPOSITORY Order Comment: Reason for Laboratory Test . TYPE CODE TESTS RESULT OUT OF RANGE REFERENCE UNITS LAB L100.1000 4.4-11.0 K/mm3 Normal WBC 9.8 LAB L100.1200 4.6-6.2 M/mm3 Normal RBC 4.61 LAB L100.1300 13.0-16.5 g/dl Low HGB 12.9 LAB L100.1400 40-54 % Low HCT 39.8 LAB L100.1500 80-94 fL Normal MCV 86.3 LAB L100.1600 27.0-32.0 pg Normal MCH 28.0 LAB L100.1700 32-36 g/gl Normal MCHC 32.4 LAB L100.1810 11.6-14.6 % Normal RDW CV 13.1 LAB L100.1820 35.1-43.9 fl Normal RDW SD 41.2 LAB L100.1900 150-450 K/mm3 Normal PLT 297 LAB L100.2000 6.2-12.0 fl Normal MPV 8.3 LAB L100.2100 47-70 % High NEUT% 72.2 LAB L100.2200 19-41 % Low LY% 12.9 LAB L100.2300 0-10 % High MONO% 10.1 LAB L100.2400 0-5 % Normal EO% 4.4 LAB L100.2500 0-1 % Normal BASO% 0.3 LAB L100.2550 0.0-0.9 % Normal IM GRAN % 0.100 Result Comment: IG% - Immature Granulocytes (promyelocytes, myelocytes and metamyelocytes) > 1% indicates that a LEFT SHIFT is Present. LAB L100.2620 2.0-7.7 X10 3/uL Normal Absolute Neut 7.1 LAB L100.2720 0.83-4.51 X10 3/ul Normal Absolute Lymph 1.27 Performed By: #### L100.0100, L500.4050 #### [facility] [address] [place], [address] COMPREHENSIVE METABOLIC Collected: 03/10/2018 Status: F Source: [place] [facility] 8:46 AM [facility] REPOSITORY Order Comment: Reason for Laboratory Test . TYPE CODE TESTS RESULT OUT OF RANGE REFERENCE UNITS LAB L501.0100 74-106 mg/dL Normal GLU 100 Result Comment: Fasting Glucose result from 100 to 125 mg/dL suggests IMPAIRED HOMEOSTASIS per A.D.A. criteria. Please note revised GLUCOSE reference range effective 2017. LAB L501.1000 7-18 mg/dL Normal BUN 10 LAB L501.1100 0.70-1.30 mg/dL Normal CREAT,SERUM 1.09 Result Comment: The validity of the calculated GFR AND GFRAA in patients over 70 years has not been determined. Clinical correlation is essential. LAB L501.1110 >60 mL/min Normal EST GFR 72 Result Comment: Non- GFR Calc LAB L501.1115 >60 mL/min Normal EST GFR - AA 87 Result Comment: GFR Calc LAB L501.1255 ml/min Normal Estimated CRCL 65.76 LAB L501.1300 10-20 RATIO Low BUN/CRE 9.2 LAB L501.1500 6.4-8. g/dL Normal 2 T PROT 7.5 LAB L501.1800 3.2-5. g/dL Low 0 ALB 3.1 LAB L501.1950 2.2-4. g/dL High 2 GLOB 4.4 LAB L501.2000 0.9-2. RATIO Low 4 A/G 0.7 LAB L501.2200 8.5-10 mg/dL Normal .1 CA 9.0 LAB L501.4100 15-37 U/L Low AST 14 LAB L501.4305 45-117 U/L Normal ALK P 104 LAB L501.4405 16-61 U/L Low ALT 14 LAB L501.4600 0.20-1 mg/dL Normal .00 T BILI 0.90 LAB L501.5300 136-14 mmol/L Low 5 NA 135 LAB L501.5600 3.5-5. mmol/L Normal 1 K 4.0 LAB L501.5900 98-107 mmol/L Low CL 96 LAB L501.6100 21.0-3 mmol/L Normal 2.0 CO2 31.0 LAB L501.6200 5-15 Normal GAP 8 Performed By: #### L100.0100, L500.4050 #### [facility] [place], [address] ONCOLOGY VISIT REPORT Observed: 03/06/2018 Status: F Source: [place] 12:03 PM [facility] REPOSITORY [facility] [place] [address] OFFICE VISIT Date of Service: 03/06/18 1023 MR#: [id number] Acct: [id number] Name: ANGEL LUIS GAUTAM Rep #: [id number] : 1950 From: Juan Carlos Plummer MD Age/Sex: 67/M Location: [facility] Status: Signed - Problem List (1) Primary cancer of right middle lobe of lung Status: Acute - Date of Service Date of Service:: 03/06/18 - Chief Complaint Lung cancer - History of Present Illness Patient is a 67-year-old gentleman ex-smoker who started smoking around age 15 averaging 2-1/2-3 packs per day and quit in 2011 and has a baseline COPD dyslipidemia and hypertension. He was in his usual state of health until May 2017 when he experienced an episode of hemoptysis , chest x-ray showed a right middle lobe infiltrate and he was treated for pneumonia and improved. However November 2017 experienced recurrence of hemoptysis in addition to worsening dyspnea and December 11, 2017 CT scan of the chest showed a right middle lobe mass associated with complete atelectasis of the right middle lobe. January 17, 2018 bronchoscopy with EBUS: FINDINGS: The visualized oropharynx appears normal. The vocal cords appeared normal and moved normally with breathing. The subglottic space is normal. The trachea was of normal caliber. The courtney is sharp. The tracheal bronchial trees of the left and right lungs were examined to at least the first subsegmental level. There was scant mucoid secretions noted in the left lower lobe. Within the right tracheal bronchial tree, there was a fungating obstructing mass occupying the orifice of the right middle lobe and right lower lobe. Only a slitlike portion of the right lower lobe orifice could be visualized. The lesion could not be traversed with the bronchoscope. Once the airway inspection was completed, the standard bronchoscope was withdrawn and a convex probe endobronchial ultrasound (EBUS) bronchoscope was inserted through the same route. The endobronchial ultrasound endoscope was then utilized to systematically examine the superior/inferior mediastinal and hilar lymph nodes to assist with fine-needle aspiration. No significant left-sided hilar lymphadenopathy was identified. 2 small lymph nodes were identified at lymph node station #7 (subcarina) and subsequently biopsied In total, 6 transbronchial needle aspirations were completed at 2 different lymph node stations. Transbronchial needle aspiration was performed at lymph node station #7(subcarina) using an Olympus EBUS-TBNA 19-gauge needle and sent for routine cytology. The procedure was guided by ultrasound. 3 samples were obtained. Transbronchial needle aspiration was then performed of the right-sided hilar lesion which encompassed the right middle lobe and right lower lobe takeoff, using an Olympus EBUS-TBNA 19-gauge needle and sent for routine cytology. The procedure was guided by ultrasound. 3 samples were obtained. Rapid on-site evaluation (ELYSIA): Preliminary cytology was suggestive of non-small cell carcinoma. Final pathology results are pending. Following this, the EBUS endoscope was subsequently withdrawn from the patient's airway through the LMA. A conventional bronchoscope was then reinserted into the patient's airway, at which time, endobronchial biopsies were obtained from the right middle lobe orifice, where the fungating mass was most pronounced. A total of 3 endobronchial forceps biopsies were completed. Bronchial washing was completed in the bronchus intermedius. Ice cold saline was infused into the region to facilitate achieving hemostasis. All retained secretions and/or blood was cleared from the patient's airway. The bronchoscope was then withdrawn without complication. The patient was then transferred to the PACU, where they recovered in the usual fashion. IMPRESSION: 1. Large right-sided obstructing lung mass. The fungating endobronchial portions of this lesion obstructed the orifice of the right middle and right lower lobes. The lesion was not able to be traversed by the bronchoscope. 2. Subcarinal lymphadenopathy status post transbronchial needle aspiration 3. Mucoid secretions within the left lower lobe. 4. No significant left-sided hilar adenopathy was identified. Pathology: MICROSCOPIC DIAGNOSIS RML, endobronchial biopsy: Non-small cell carcinoma, favor squamous cell carcinoma DIAGNOSIS CYTOLOGY A. EBUS aspiration #1, site 7: Negative for malignant cells. Adequate for evaluation, lymphocytes present. B. EBUS aspiration #2, site 7: Negative for malignant cells. Mostly blood. A few respiratory epithelial cells. C. EBUS aspiration #3, site 7: Negative for malignant cells. Adequate for evaluation lymphocytes present. D. EBUS aspiration #4, hilar mass: Malignant cells present derived from non-small cell carcinoma. E. EBUS aspiration #5, hilar mass: Malignant cells present derived from non-small cell carcinoma. F. EBUS aspiration #6, hilar mass: Malignant cells present derived from non-small cell carcinoma. G. Site 7, TBNA, fluid (cytospin and cell block): Negative for metastatic carcinoma. See cytology study and comment. H. Hilar mass, TBNA (cytospin and cell block): Malignant cells present derived from non-small cell carcinoma, favor squamous cell carcinoma. See comment. I. RML, washing (cytospin and cell block): A few atypical squamous epithelial cells are noted. ANTIBODY / CLONE RESULT Block H AE1-3 (AE1/AE3/PCK26) positive, focal CK7 (OV-TL12/30) negative CK8 (44daxqD32) positive, focal CK20 (KS20.8) negative TTF-1 (8G7G3/1) negative Napsin A (Rabbit Polyclonal) negative HepPar (OCh1E5) negative RCC (PN-15) negative PSA (ER-PR8) negative CK5-6 (D5 AND 1684) positive P40 (BC28) positive PET CT January 27, 2018: IMPRESSION: 1. ABNORMAL EXAMINATION INDICATIVE OF MALIGNANT VIABLE NEOPLASM. 2. Increased glucose concentration identified in the right thoracic perihilum, infrahilar region fulfills quantitative criteria for viable neoplasm. (Rajiv et al, Journal of Clinical Oncology 16:2142, 1998). 3. Subtle increased glucose concentration observed in the right lower lateral hemithorax pulmonary parenchyma corresponding to apparent atelectatic change likely represents activated leukocytes associated with a localized inflammatory process-obstructive pneumonitis. 4. The increase in glucose concentration observed in the descending thoracic, as well as abdominal aorta is commensurate with activated leukocytes associated with atherosclerotic plaque formation. (Handorita et al, Clinical Nuclear Medicine 29:93, 2004). 5. Asymmetric increased glucose concentration visualized in the left diaphragmatic crura is most consistent with a component muscle tension artifact. Brain MRI January 29, 2018: No evidence of metastases PFTs January 2018: INTERPRETATION: Forced expiration spirometry demonstrates the presence of a very severe large airways obstructive ventilatory defect. There was a significant response to aerosolized bronchodilators. Spirograms are of good quality and do not plateau indicating slow emptying of the lungs. Body plethysmography was performed and reveals an elevated RV to 232% of predicted, indicative of underlying air trapping. Diffusing capacity by single breath CO severely reduced at 38% of predicted. IMPRESSION: These pulmonary function studies demonstrate the presence of a partially reversible very severe large airways obstructive ventilatory defect with associated air trapping and symmetric reduction in diffusing capacity. March 04, 2018: Surgical consultation at [facility] found the patient a poor surgical candidate due to insufficient pulmonary reserve. - Past Medical/Social History Social History Smoking Status Former smoker Review of Systems Constitutional:: Denies: Fever, Sweats, Weight loss, Appetite change, Chills Cardiovascular:: Reports: Dyspnea on exertion. Denies: Chest pain, Palpitations, Orthopnea, PND, Shortness of breath Respiratory: Reports: Shortness of breath upon exertion. Denies: Cough, Hemoptysis, Shortness of Breath, Wheezing Gastrointestinal:: Denies: Abdominal pain, Nausea, Vomiting, Diarrhea, Constipation, Hematochezia Genitourinary: Denies: Dysuria, Hematuria, 15, Flank pain Musculoskeletal:: Denies: Back pain, Myalgia, Arthralgia Skin: Denies: Rash, Skin Changes, Wounds Neurological:: Denies: Headache, Dizziness, Visual changes, Tinnitus, Hearing loss Psychiatric: Denies: Anxiety, Depression, Homicidal Ideations, Suicidal Ideations Vital Signs Height 5 ft 9 in Weight: 95.254 kg Weight in Pounds 210.0 lbs Pulse Ox 98 - Physical Exam General: Alert, Oriented x3, No apparent distress, - - ECOG 1-2 HEENT: Atraumatic, PERRLA, EOMI, Normocephalic Oropharynx:: Dry mucosa Neck:: Supple, Trachea midline. Negative for: JVD, bilateral Cardiac:: Regular rate, Regular rhythm, Normal S1, Normal S2. Negative for: Murmur Lungs: Clear to auscultation, Diminished, Excusion symmetrical. Negative for: Rhonchi, Wheezes Abdomen:: Soft, Non-tender, Non-distended. Negative for: Hepatosplenomegaly Extremities:: Negative for: Cyanosis, Edema Neurological: Neuro grossly intact Skin:: Negative for: Lesions, Rash, Petechiae, Ecchymosis Psychiatric:: Appropriate affect, Euthymic Lymphatics:: Negative for: Cervical lymphadenopathy, Supraclavicular lymphadenopathy Diagnostic Data: Diagnostic Data PET, CT Tumor Imaging 01/27/18 12:45 IMPRESSION: 1. ABNORMAL EXAMINATION INDICATIVE OF MALIGNANT VIABLE NEOPLASM. 2. Increased glucose concentration identified in the right thoracic perihilum, infrahilar region fulfills quantitative criteria for viable neoplasm. (Rajiv zazueta al, Journal of Clinical Oncology 16:2142, 1998). 3. Subtle increased glucose concentration observed in the right lower lateral hemithorax pulmonary parenchyma corresponding to apparent atelectatic change likely represents activated leukocytes associated with a localized inflammatory process-obstructive pneumonitis. 4. The increase in glucose concentration observed in the descending thoracic, as well as abdominal aorta is commensurate with activated leukocytes associated with atherosclerotic plaque formation. (Michael et al, Clinical Nuclear Medicine 29:93, 2003). 5. Asymmetric increased glucose concentration visualized in the left diaphragmatic crura is most consistent with a component muscle tension artifact. Electronic Signature Keith Patel D.O. 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 Clinical and radiologic staging is consistent with an early stage localized disease but patient not a surgical candidate due to poor pulmonary reserve. Comorbid conditions: COPD, hypertension and dyslipidemia. Plan: I reviewed the NCCN guidelines and advice definitive combined chemoradiation with an intent to cure. The first phase of treatment will be concomitant weekly carbotaxol with radiation and the second phase will follow with 2 cycles of carbotaxol. Formal chemotherapy teaching session to schedule Radiation oncology consultation Central venous access. Patient was seen was his impression and plan discussed Primary Care Provider: Semaj Page MD Referring Provider: Antonio Chin DO 03/06/18 1203 <Electronically signed by Juan Carlos Plummer MD> Date Juan Carlos Plummer MD Cosigner Signature: Date (if applicable) CC: Antonio Chin D.O.; Semaj Page MD PULMONARY VISIT REPORT Observed: 03/04/2018 Status: F Source: [place] 10:01 AM [facility] REPOSITORY [facility] [address] [place] [address] OFFICE VISIT Date of Service: 03/04/18 MR#: [id number] Acct: [id number] Name: ANGEL LUIS GAUTAM Rep #: [id number] : 1950 Provider: Karen Desir Age/Sex: 67/M Location: [facility] [place] Status: Signed Assessment AND Plan 1. Stage 4 very severe COPD by GOLD classification J44.9 Plan Newly identified as very severe COPD. Hyperinflation and air trapping was noted on PFTs, the patient will be placed on a LAMA/LABA medication inhaler. Stiolto sample provided in the office today. The patient was personally instructed on how to use the inhaler and the first dose provided in the exam today. Follow-up somewhere in between 2-6 weeks, to evaluate how the patient has responded to this new medication. Understandably, the patient's schedule is very busy with upcoming/pending surgery. Follow-up may need to be completed by phone if the patient is bedridden or unable to leave the home. He has been encouraged to contact the office with any new or worsening symptoms in the meantime. He was also encouraged to receive an influenza vaccination today, which he declined. Discussed the risks and benefits of influenza vaccination. Orders Orders: 2. Primary cancer of right middle lobe of lung C34.2 Plan Complicates exam, plan, care and prognosis. Defer management to oncology. 3. 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 Continue to encourage smoking cessation. Plan Detail Other Medications New: tiotropium-olodaterol 2.5-2.5 mcg/actuation (Stiolto Respimat) 2 puffs Inhalation Q24H administer at approximately the same time(s) each day Follow Up 1 Month (CSM) HPI 6 wk FU: Chief Complaint: Shortness of breath HPI Comments Details: This patient presents to the office today to follow- up after recently having testing completed. He is ambulatory, on room air and accompanied by his . He has not been seen in the ED urgent care for respiratory illnesses since his last office visit. He has not required any antibiotics or prednisone for any breathing problems. He continues to experience shortness of breath on exertion, and is exerted easily. This has not changed. He continues to have a cough that comes and fits and is typically dry. He denies any sputum production or hemoptysis. He reports persistent fatigue, this is not new or worsened. He denies any wheezing, chest tightness, chest pain or palpitations. He denies any lower extremity edema. He denies any fever, chills or body aches. He denies any weight change. He has been using Mucinex once daily. He is using Ventolin rescue inhaler 3-4 times daily, which provides him with a short relief of his shortness of breath. He is not currently on any maintenance inhalers. He is not added any anep-cpn-guuvrts medications for his symptoms. Since the last office visit he did establish a relationship with [facility]ology. He has an evaluation appointment tomorrow for a possible pneumonectomy. They have requested results of his PFT, he believes that they have been obtained at this point but he has not been in contact with them. He is supposed to have a stress test tomorrow at [facility]. Surgery is planned for 2 weeks from now. Pulmonary stress test completed on February 12, 2018 shows the patient was able to ambulate 990 feet over the course of 6 minutes. He did not become hypoxic, nor tachycardic. Currently, there is no indication for supplemental oxygen. Pulmonary function test completed on February 11, 2018 and interpreted as showing a partially reversible very severe large airway obstructive ventilatory defect, with associated air trapping and symmetric reduction in diffusing capacity. FVC 45 predicted, FEV1 29% of predicted, FEV1/FVC 48% of predicted, TLC 115% predicted, RV 232% predicted and DLCO 38% of predicted. Intake Vital Signs03/04/18 Height 5 ft 9 in 03/04/18 Weight: 204 lb Intake Visit Reasons: 6 wk FU Chief Complaint: Coughing up blood Accompanied by: Allergies No Known Allergies Allergy (Verified 03/04/18 07:03) Medications Hydrochlorothiazide [Hctz] 25 mg PO DAILY 06/16/17 [History Confirmed 03/04/18] Metoprolol Tartrate [Lopressor (beta shorty)] 50 mg PO BID 06/16/17 [History Confirmed 03/04/18] Simvastatin [Zocor] 40 mg PO QHS 06/16/17 [History Confirmed 03/04/18] [place]-3 Fatty Acids/Fish Oil [Fish Oil 1,000 mg Capsule] 1 ea PO DAILY 12/11/17 [History Confirmed 03/04/18] Albuterol IH (ProAir) [Proair Hfa] 1 puff INHALATION Q4H PRN PRN #1 inhaler 12/12/17 [Rx Confirmed 03/04/18] Guaifenesin [Mucinex] 1,200 mg PO BID 01/14/18 [History Confirmed 03/04/18] tiotropium 2.5 mcg-olodaterol 2.5 mcg/actuation mist for inhalation 2 puff INHALATION Q24H #4 g 03/04/18 [Rx Confirmed 03/04/18] PFSH Medical History Hemoptysis (Acute) Pneumonia (Acute) Hyperlipidemia (Chronic) Hypertension (Chronic) Surgical History EBUS (Resolved) H/O hernia repair (Resolved) Family History Father Myocardial infarction Hypertension Mother Pneumonia Social History Smoking Status: Former smoker quit date: 07/01/11 pack-years: 80 alcohol intake: current alcohol intake frequency: holidays/special occasions only substance use type: does not use Review of Systems Const CONSTITUTIONAL: Positive fatigue; negative anorexia, body ache, chills, daytime sleepiness, fever(s), night sweats, oral thrush, stops breathing during sleep, weight loss, sleeping in chair, weight loss, weight gain, frequent colds, seasonal allergies, other, headache(s) or orthopnea EETM Ear Nose Throat Mouth: Positive hearing normal; negative hard of hearing, hoarseness, dry mouth in morning, change in vision, itchy eyes, eye pain, swallowing Difficulty, ear pain, nose bleed, headache(s), mouth pain, nasal congestion, nasal discharge, post nasal drip, sinus pain, sinus pressure, sore throat or other Cardio Cardiovascular: Negative chest pain, chest pain at rest, chest pain with activity, irregular heart rhythm, edema, shortness of breath when lying down, palpitations, murmur or other Resp Respiratory: Positive as per HPI, shortness of breath shortness of breath: Positive with activity and cough cough: Positive non-productive; negative pain with cough, wheezing, chest congestion, chest tightness, pain on inspiration, inhalers, increase use of rescue inhalers, snoring, apnea or other Gastro Gastrointestional: Negative bloody stools, change in appetite, difficulty swallowing, reflux, hematemesis, melena stool, loose stool, constipation or other Genitourinary: Negative blood in urine, nocturia, pain with urination or other Musc Musculoskeletal: Negative body pain, back pain, neck pain or other Skin/Breast Skin/Breast: Negative dry skin, itching, rash, unusual bruising, breast lump or other Neuro Neurological: Negative restless legs, confusion, weakness or other Psych Psychocological: Negative abnormal sleep pattern, anxiety, thoughts of hurting self/others, hopelessness or other Lymph Lymphatic: Negative easy bleeding, easy bruising, swollen lymph nodes or other Exam Ears Ear: Positive hearing normal; negative hard of hearing Nose Nose: Negative epistaxis Mouth Mouth: Negative post nasal drip Cardio Cardiac: Negative murmur Skin Pulmonary Skin Exam: Negative rash Lymph Lymphatic: No lymphadenopathy Office Procedures Inhaler Training Inhaler Training Procedure performed by: Karen Desir Inhaler Training: Yes personally trained on inhaler use, sample provided, first dose given in the office, needs reinforcement and continue to monitor Coding Level of Care Code Off vis,est,level 4 Diagnoses Stage 4 very severe COPD by GOLD classification J44.9 Primary cancer of right middle lobe of lung C34.2 Tobacco abuse, 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 Date: Ordering Dr: Sex: M C Location: PSN PSN 6 Minute Walk Test - 6 Minute Walk Test 6 Minute Walk Test: 6 Minute Walk Test PSN:6-Minute Walk Test Start: 02/12/18 09:41 Freq: Status: Active Protocol: RESP.6MINW Document 02/12/18 09:41 [place] (Rec: 02/12/18 09:45 SFENTON [id number]) 6 Minute Walk Test Date Performed 02/12/18 Time Performed 09:00 Height 5 ft 9 in Weight: 210 lb Weight in Pounds 210.[address]: Antonio Chin Assistive device used: None Pre-test Oxygen Delivery Method Room Air Pulse Ox (%) 93 Pulse Rate (60-100 beats/min) 56 L Dyspnea Darlyn Scale (0-10) 0 Exertion Darlyn Scale (6-20) 6 1st minute Oxygen Delivery Method Room Air Pulse Ox (%) 94 Pulse Rate (60-100 beats/min) 67 2nd minute Oxygen Delivery Method Room Air Pulse Ox (%) 92 Pulse Rate (60-100 beats/min) 67 3rd minute Oxygen Delivery Method Room Air Pulse Ox (%) 93 Pulse Rate (60-100 beats/min) 69 4th minute Oxygen Delivery Method Room Air Pulse Ox (%) 90 Pulse Rate (60-100 beats/min) 69 5th minute Oxygen Delivery Method Room Air Pulse Ox (%) 91 Pulse Rate (60-100 beats/min) 68 6th minute Oxygen Delivery Method Room Air Pulse Ox (%) 93 Pulse Rate (60-100 beats/min) 67 Dyspnea Darlyn Scale (0-10) 1 Exertion Darlyn Scale (6-20) 11 Post-test Oxygen Delivery Method Room Air Pulse Ox (%) 94 Pulse Rate (60-100 beats/min) 59 L Full Laps Walked 16 Partial Lap, Number of Tiles Walked 46 Total Distance Walked (ft) 990 - Interpretation Interpretation: The patient ambulated 990 feet over the course of 6 minutes beginning on room air without assistive devices or breaks. Pretesting oxygen saturation was noted to be 93% on room air. With ambulation, the susan oxygen saturation was 90%. There was no significant exertional oxygen desaturation. - Recommendations Recommendations: There is no indication for the use of supplemental oxygen at this time. 02/12/18 1140 <Electronically signed by Antonio Chin DO> Date Antonio Chin DO CC: Date Dictated: 02/12/18 1139 Date Transcribed: 02/12/181138 Rn Unit Manager: Antonio Chin DO Signed PULMONARY FUNCTION Observed: 02/11/2018 Status: F Source: [place] TEST 10:51 AM [facility] REPOSITORY [facility] Pulmonary Services/Neurology [address] [id number] MR#: [id number] Acct: [id number] Name: ANGEL LUIS GAUTAM Rep #: [id number] : 1950 67 From: Antonio Chin DO Referring Dr: Antonio Chin D.O. Status: REG CLI Ordering Dr: Date: Location: [facility] Sex: M C INTRODUCTION: The patient is a 67-year-old male that presents for pulmonary function testing secondary to a diagnosis of tobacco abuse. Respiratory therapy reports good patient effort. Bronchodilators were used during testing. INTERPRETATION: Forced expiration spirometry demonstrates the presence of a very severe large airways obstructive ventilatory defect. There was a significant response to aerosolized bronchodilators. Spirograms are of good quality and do not plateau indicating slow emptying of the lungs. Body plethysmography was performed and reveals an elevated RV to 232% of predicted, indicative of underlying air trapping. Diffusing capacity by single breath CO severely reduced at 38% of predicted. IMPRESSION: These pulmonary function studies demonstrate the presence of a partially reversible very severe large airways obstructive ventilatory defect with associated air trapping and symmetric reduction in diffusing capacity. 02/11/18 1051 <Electronically signed by Antonio Chin DO> Date Antonio Chin DO CC: Antonio Chin D.O.; Semaj Page MD Date Dictated: 02/11/181048 Date Transcribed: 02/11/181048 Rn Unit Manager: RIGOBERTO Signed CNPN Observed: 02/11/2018 Status: COMPLETED Source: [place] 12:00 AM [facility] ANGEL LUIS GAUTAM ([id number]) 1950 M Date Time Provider Department 02/11/18 [facility] During your visit today, we recorded the following information about you: Semaj Page MD 02/11/2018 12:17 AM Signed Let patient know his sodium was low still. I talked with his lung specialist and this could be related to the lung cancer and therefore would improve with treatment of the cancer. At this time advise to try to decrease the amount of water he drinks in a day and be liberal with some added salt in the diet. Placed order to have sodium rechecked in 2 weeks. Molly Dias Ma 02/11/2018 8:17 AM Signed Patient notified and voiced understanding. Molly Dias Ma Allergies As of Date: 02/11/2018 (No Known Allergies) Date Reviewed: 02/05/2018 Reviewed by: Semaj Page - Fully Assessed Reason for Visit: Results [95] Primary Visit Diagnosis:Hyponatremia [E87.1] Order(s):SODIUM/NA BLD [SQNA] Order #: [id number] FUTURE CMP (EXTERNAL) [[id number]] Order #: [id number] CBCDIF (EXTERNAL) [[id number]] Order #: [id number] CMP (EXTERNAL) [[id number]] Order #: [id number] CBCDIF (EXTERNAL) [[id number]] Order #: [id number] CMP (EXTERNAL) [[id number]] Order #: [id number] CBCDIF (EXTERNAL) [[id number]] Order #: [id number] Prescriptions as of 02/11/2018 Sig: HYDROCHLOROTHIAZIDE 25 MG TAB* Take 1 tablet by mouth once d* OMEGA-3 FATTY ACIDS 1,000 MG * Take 1 capsule by mouth once * SIMVASTATIN 40 MG TABLET Take 1 tablet by mouth daily * METOPROLOL TARTRATE 50 MG TAB* Take 1 tablet by mouth twice * Problem List As Of Date 02/11/2018 Noted Resolved Ex-smoker [Z87.891] INVALID FOR* Priority: C More... COPD, severe (HCC) [J44.9] INVALID FOR* Priority: A More... Prostate cancer screening [Z12.5] INVALID FOR* Mixed hyperlipidemia [E78.2] INVALID FOR* Priority: A Essential hypertension [I10] INVALID FOR* Priority: A More... Skin cancer, basal cell [C44.91] INVALID FOR* Priority: D More... Disorder of prostate [N42.9] INVALID FOR* Well adult exam [Z00.00] INVALID FOR* Priority: E More... Neoplasm of uncertain behavior of skin of tempo*INVALID FOR* Priority: D Skin exam, screening for cancer [Z12.83] INVALID FOR* Colon cancer screening [Z12.11] INVALID FOR* More... Bilateral leg edema [R60.0] INVALID FOR* Priority: A More... Medicare annual wellness visit, subsequent [Z00*INVALID FOR* Priority: E More... Squamous cell lung cancer (HCC) [C34.90] INVALID FOR* Priority: B More... 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) [F*INVALID FOR* Priority: A Encounter Status:Closed by MOLLY DIAS MA on 02/11/18 ONCOLOGY VISIT REPORT Observed: 02/07/2018 Status: F Source: [place] 1:49 PM [facility] REPOSITORY [facility] [place] [address] OFFICE VISIT Date of Service: 02/07/18 1056 MR#: [id number] Acct: [id number] Name: ANGEL LUIS GAUTAM Rep #: [id number] : 1950 From: Juan Carlos Plummer MD Age/Sex: 67/M Location: OMD Status: Signed - Problem List (1) Primary cancer of right middle lobe of lung Status: Acute - Date of Service Date of Service:: 02/07/18 - Chief Complaint Lung cancer - History of Present Illness Patient is a 67-year-old gentleman ex-smoker who started smoking around age 15 averaging 2-1/2-3 packs per day and quit in 2011 and has a baseline COPD dyslipidemia and hypertension. He was in his usual state of health until May 2017 when he experienced an episode of hemoptysis , chest x-ray showed a right middle lobe infiltrate and he was treated for pneumonia and improved. However November 2017 experienced recurrence of hemoptysis in addition to worsening dyspnea and December 11, 2017 CT scan of the chest showed a right middle lobe mass associated with complete atelectasis of the right middle lobe. January 17, 2018 bronchoscopy with EBUS: FINDINGS: The visualized oropharynx appears normal. The vocal cords appeared normal and moved normally with breathing. The subglottic space is normal. The trachea was of normal caliber. The courtney is sharp. The tracheal bronchial trees of the left and right lungs were examined to at least the first subsegmental level. There was scant mucoid secretions noted in the left lower lobe. Within the right tracheal bronchial tree, there was a fungating obstructing mass occupying the orifice of the right middle lobe and right lower lobe. Only a slitlike portion of the right lower lobe orifice could be visualized. The lesion could not be traversed with the bronchoscope. Once the airway inspection was completed, the standard bronchoscope was withdrawn and a convex probe endobronchial ultrasound (EBUS) bronchoscope was inserted through the same route. The endobronchial ultrasound endoscope was then utilized to systematically examine the superior/inferior mediastinal and hilar lymph nodes to assist with fine-needle aspiration. No significant left-sided hilar lymphadenopathy was identified. 2 small lymph nodes were identified at lymph node station #7 (subcarina) and subsequently biopsied In total, 6 transbronchial needle aspirations were completed at 2 different lymph node stations. Transbronchial needle aspiration was performed at lymph node station #7(subcarina) using an Olympus EBUS-TBNA 19-gauge needle and sent for routine cytology. The procedure was guided by ultrasound. 3 samples were obtained. Transbronchial needle aspiration was then performed of the right-sided hilar lesion which encompassed the right middle lobe and right lower lobe takeoff, using an Olympus EBUS-TBNA 19-gauge needle and sent for routine cytology. The procedure was guided by ultrasound. 3 samples were obtained. Rapid on-site evaluation (ELYSIA): Preliminary cytology was suggestive of non-small cell carcinoma. Final pathology results are pending. Following this, the EBUS endoscope was subsequently withdrawn from the patient's airway through the LMA. A conventional bronchoscope was then reinserted into the patient's airway, at which time, endobronchial biopsies were obtained from the right middle lobe orifice, where the fungating mass was most pronounced. A total of 3 endobronchial forceps biopsies were completed. Bronchial washing was completed in the bronchus intermedius. Ice cold saline was infused into the region to facilitate achieving hemostasis. All retained secretions and/or blood was cleared from the patient's airway. The bronchoscope was then withdrawn without complication. The patient was then transferred to the PACU, where they recovered in the usual fashion. IMPRESSION: 1. Large right-sided obstructing lung mass. The fungating endobronchial portions of this lesion obstructed the orifice of the right middle and right lower lobes. The lesion was not able to be traversed by the bronchoscope. 2. Subcarinal lymphadenopathy status post transbronchial needle aspiration 3. Mucoid secretions within the left lower lobe. 4. No significant left-sided hilar adenopathy was identified. Pathology: MICROSCOPIC DIAGNOSIS RML, endobronchial biopsy: Non-small cell carcinoma, favor squamous cell carcinoma DIAGNOSIS CYTOLOGY A. EBUS aspiration #1, site 7: Negative for malignant cells. Adequate for evaluation, lymphocytes present. B. EBUS aspiration #2, site 7: Negative for malignant cells. Mostly blood. A few respiratory epithelial cells. C. EBUS aspiration #3, site 7: Negative for malignant cells. Adequate for evaluation lymphocytes present. D. EBUS aspiration #4, hilar mass: Malignant cells present derived from non-small cell carcinoma. E. EBUS aspiration #5, hilar mass: Malignant cells present derived from non-small cell carcinoma. F. EBUS aspiration #6, hilar mass: Malignant cells present derived from non-small cell carcinoma. G. Site 7, TBNA, fluid (cytospin and cell block): Negative for metastatic carcinoma. See cytology study and comment. H. Hilar mass, TBNA (cytospin and cell block): Malignant cells present derived from non-small cell carcinoma, favor squamous cell carcinoma. See comment. I. RML, washing (cytospin and cell block): A few atypical squamous epithelial cells are noted. ANTIBODY / CLONE RESULT Block H AE1-3 (AE1/AE3/PCK26) positive, focal CK7 (OV-TL12/30) negative CK8 (22jzffC82) positive, focal CK20 (KS20.8) negative TTF-1 (8G7G3/1) negative Napsin A (Rabbit Polyclonal) negative HepPar (OCh1E5) negative RCC (PN-15) negative PSA (ER-PR8) negative CK5-6 (D5 AND 1684) positive P40 (BC28) positive PET CT January 27, 2018: IMPRESSION: 1. ABNORMAL EXAMINATION INDICATIVE OF MALIGNANT VIABLE NEOPLASM. 2. Increased glucose concentration identified in the right thoracic perihilum, infrahilar region fulfills quantitative criteria for viable neoplasm. (Rajiv et al, Journal of Clinical Oncology 16:2142, 1998). 3. Subtle increased glucose concentration observed in the right lower lateral hemithorax pulmonary parenchyma corresponding to apparent atelectatic change likely represents activated leukocytes associated with a localized inflammatory process-obstructive pneumonitis. 4. The increase in glucose concentration observed in the descending thoracic, as well as abdominal aorta is commensurate with activated leukocytes associated with atherosclerotic plaque formation. (Michael et al, Clinical Nuclear Medicine 29:93, 2003). 5. Asymmetric increased glucose concentration visualized in the left diaphragmatic crura is most consistent with a component muscle tension artifact. Brain MRI January 29, 2018: No evidence of metastases PFTs: Pending - Past Medical/Social History Social History Smoking Status Former smoker Review of Systems Comment: No change, please see January 24, 2018 for consult Vital Signs Height 5 ft 9 in Weight: 95.254 kg Weight in Pounds 210.0 lbs Pulse Ox 98 - Physical Exam General: Alert, Oriented x3, No apparent distress, - - ECOG 1-2 Diagnostic Data: Diagnostic Data PET, CT Tumor Imaging 01/27/18 12:45 IMPRESSION: 1. ABNORMAL EXAMINATION INDICATIVE OF MALIGNANT VIABLE NEOPLASM. 2. Increased glucose concentration identified in the right thoracic perihilum, infrahilar region fulfills quantitative criteria for viable neoplasm. (Rajiv et al, Journal of Clinical Oncology 16:2142, 1998). 3. Subtle increased glucose concentration observed in the right lower lateral hemithorax pulmonary parenchyma corresponding to apparent atelectatic change likely represents activated leukocytes associated with a localized inflammatory process-obstructive pneumonitis. 4. The increase in glucose concentration observed in the descending thoracic, as well as abdominal aorta is commensurate with activated leukocytes associated with atherosclerotic plaque formation. (Michael et al, Clinical Nuclear Medicine 29:93, 2003). 5. Asymmetric increased glucose concentration visualized in the left diaphragmatic crura is most consistent with a component muscle tension artifact. Electronic Signature Keith Patel D.O. 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 Clinical and radiologic staging is consistent with an early stage localized disease. Comorbid conditions: COPD, hypertension and dyslipidemia. Plan: #1 Surgical consult for resectability #2 PFTs #3 Further treatment recommendations after above. Patient was seen was his impression and plan discussed Primary Care Provider: Semaj Page MD Referring Provider: Antonio Chin DO 02/07/18 1349 <Electronically signed by Juan Carlos Plummer MD> Date Juan Carlos Plummer MD Cosigner Signature: Date (if applicable) CC: Antonio Chin D.O.; Semaj Page MD SODIUM Collected: 02/05/2018 Status: F Source: [place] 2:15 PM [facility] RE[facility] TYPE CODE TESTS RESULT OUT OF REFERENCE UNITS RANGE LAB NA 136-144 mmol/L Low Sodium 131 Performed By: #### NA #### [facility] [address] [place], [place] [address] PROGRESS Observed: 02/05/2018 Status: COMPLETED Source: [place] 1:47 PM [facility] REPOSITORY HNO ID: [id number] Author: Semaj Page Service: (none) Author Type: Physician Type: Progress Notes Filed: 02/07/2018 12:46 AM Note Text: Chief Complaint Patient presents with: Recheck: 6 months HPI Angel Luis Gautam is a 67 year old male who presents here today for Chronic Medical Conditions.. Patient with Hx as reviewed and documented below. Recently diagnosed with lung cancer and seeing Dr. Chin and oncology. Recent PET showed no metastatic lesions. Past medical history, appointments, medications, allergies reviewed. Previous Medical History PAST MEDICAL HISTORY Diagnosis Date - COPD, mild (HCC) 10/26/2005 - Depression 01/19/2011 - Essential hypertension 03/31/2015 - Ex-smoker 10/26/2005 Quit 2011. 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 Gage: Left upper back, right upper back. 10/2016 Frontal scalp - Squamous cell lung cancer (HCC) 01/22/[address] Chin Previous Surgical History PAST SURGICAL HISTORY Procedure Laterality Date - EXC SKIN MALIG >4CM REMAINDR BODY 03/14/07 - FECAL OCCULT BLOOD TEST 08/28/2017 negative - INT REPAIR SCALP,NEC,TRUNK 2.6-7.5CM 03/14/07 Family History FAMILY HISTORY Problem Relation Age of Onset - Hypertension Father - Heart Father Patient Allergies ALLERGIES No Known Allergies Current Medications Current Outpatient Prescriptions on File Prior to Visit: hydroCHLOROthiazide (HYDRODIURIL, ESIDRIX) 25 mg tablet TAKE ONE TABLET BY MOUTH ONCE DAILY omega-3 fatty acids 1,000 mg cap Take 1 capsule by mouth once daily. simvastatin (ZOCOR) 40 mg tablet Take 1 tablet by mouth daily at bedtime. metoprolol tartrate, short acting, (LOPRESSOR) 50 mg tablet Take 1 tablet by mouth twice daily. No current facility-administered medications on file prior to visit. Social History Social History Marital status: Spouse name: Years of education: Number of children: Social History Main Topics Smoking status: Former Smoker Packs/day: 0.50 Years: 35.00 Types: Cigarettes Quit date: 03/29/2012 Smokeless tobacco: Never Used Alcohol use: Yes Comment: occasionally Drug use: No Review of Symptoms REVIEW OF SYSTEMS GENERAL: No weight loss, malaise or fevers NECK: Negative for lumps, goiter, pain and significant neck swelling RESPIRATORY: Negative for hemoptysis, wheezing, COPD. shortness of breath slightly increased. Has clear mucus CARDIOVASCULAR: Negative for chest pain, leg swelling, hypertension, CHF or palpitations GI: No nausea, vomiting, or diarrhea and No heartburn or reflux symptoms : No history of dysuria or blood ENDOCRINE: no symptoms of low BS's NEURO: No history of headaches, syncope, paralysis, seizures or tremors EXAM: BP 144/68 Pulse 68 Resp 14 Wt 96.2 kg (212 lb) BMI 32.23 kg/m? General Appearance: Well appearing, alert, in no acute distress, well-hydrated, well nourished. and Overweight. Neck: Supple, no adenopathy; thyroid symmetric, normal size, no bruits. Lungs: Lungs clear to auscultation. No wheezing, rhonchi, rales. Heart: RRR without murmur, gallop, or rubs. No ectopy. Abdomen: Normal abdominal exam, Abdomen soft, non-tender. Bowel sounds normal. No masses, organomegaly. Extremities: No deformities, edema, skin discoloration, clubbing or cyanosis. Good capillary refill. . Health Maintenance List HEPATITIS C SCREENING due on 1994 INFLUENZA(1) due on 03/01/2018 FECAL OCCULT BLOOD due on 08/28/2018 ANNUAL PCP TEAM CHRONIC DISEASE VISIT due on 12/17/2018 BLOOD PRESSURE CONTROLLED due on 12/17/2018 DTAP,TDAP,TD(3 - Td) due on 12/25/2019 DIABETES SCREEN due on 02/04/2021 LIPID SCREEN due on 02/04/2023 PROSTATE CANCER SCREENING DISCUSSION Completed ADULT PREVNAR-13 Completed PNEUMOVAX AGE 65 AND OVER WITH 5YR LOOKBACK Completed Data reviewed Component Latest Ref Rng AND Units 02/14/2017 07/25/2017 02/04/2018 Protein, Total 6.3 - 8.0 g/dL 7.2 7.2 Albumin 3.9 - 4.9 g/dL 4.4 4.0 Calcium 8.5 - 10.2 mg/dL 9.1 10.1 Bilirubin, Total 0.2 - 1.3 mg/dL 0.7 0.7 Alkaline Phosphatase 36 - 108 U/L 68 105 AST 14 - 40 U/L 20 17 Glucose 74 - 99 mg/dL 73 (L) 99 BUN 9 - 24 mg/dL 17 14 Creatinine 0.73 - 1.22 mg/dL 1.29 (H) 1.05 Sodium 136 - 144 mmol/L 137 132 (L) Potassium 3.7 - 5.1 mmol/L 4.3 4.1 Chloride 97 - 105 mmol/L 95 (L) 86 (L) CO2 22 - 30 mmol/L 27 32 (H) Anion Gap 9 - 18 mmol/L 15 14 ALT 10 - 54 U/L 17 13 eGFR- >60 >60 eGFR-All Other Races . 56 >60 Cholesterol, Total <200 mg/dL 165 155 Triglyceride <150 mg/dL 294 (H) 142 HDL Cholesterol >39 mg/dL 44 42 LDL Cholesterol <100 mg/dL 62 85 Non HDL Cholesterol <130 mg/dL 121 113 Fasting Time hrs 10 10 VLDL Cholesterol <30 mg/dL 59 (H) 28 TC:HDL Ratio <5.10 3.75 3.69 LDL:HDL Ratio <2.54 1.41 2.02 A/P ASSESSMENT/PLAN: 1. Mixed hyperlipidemia - ICD9: 272.2, ICD10: E78.2 (primary diagnosis) - good control and - improved control - Continue current dose of simvastatin (Zocor) 40 mg. - Encouraged following a low fat, low cholesterol diet. - Discussed the benefits of regular aerobic exercise and weight loss. - Encouraged following a low carbohydrate, healthy oil intake diet. 2. Essential hypertension - ICD9: 401.9, ICD10: I10 - good control - Continue current medication(s) - Recommended regular aerobic exercise. - Recommend home blood pressure monitoring, to bring results in on next visit - Goal of BP <140/90 - HYDROCHLOROTHIAZIDE 25 MG TABLET 3. COPD, mild (HCC) - ICD9: 496, ICD10: J44.9 - Stable and seeing Pulmonary 4. Major depressive disorder in remission, unspecified whether recurrent (HCC) - ICD9: 296.25, ICD10: F32.5 - Stable and not needing Tx. Will monitor 5. Bilateral leg edema - ICD9: 782.3, ICD10: R60.0 - None on exam today 6. Squamous cell carcinoma of right lung (HCC) - ICD9: 162.9, ICD10: C34.91 - cont pulm and Oncology f/u 7. Hyponatremia - ICD9: 276.1, ICD10: E87.1 recheck - SODIUM/NA BLD Signed Prescriptions Disp Refills hydroCHLOROthiazide (HYDRODIURIL, ESIDRIX) 25 mg tablet 90 tablet 1 Sig: Take 1 tablet by mouth once daily. KIERSTEN: No f/u in 6 months WAE check CMP, FLP, UA and PSA prior Semaj Page MD CNOV Observed: 02/05/2018 Status: COMPLETED Source: [place] 1:40 PM [facility] REPOSITORY Office Visit (FAMPWS) ANGEL LUIS GAUTAM ([id number]) 1950 M Date Time Provider Department 02/05/18 1:40 PM [facility] During your visit today, we recorded the following information about you: Pulse Respiration Blood pressure Weight 68/minute 14/minute 144/68 96.2 kg Semaj Page MD 02/07/2018 12:46 AM Signed Chief Complaint Patient presents with: Recheck: 6 months HPI Angel Luis Gautam is a 67 year old male who presents here today for Chronic Medical Conditions.. Patient with Hx as reviewed and documented below. Recently diagnosed with lung cancer and seeing Dr. Chin and oncology. Recent PET showed no metastatic lesions. Past medical history, appointments, medications, allergies reviewed. Previous Medical History PAST MEDICAL HISTORY Diagnosis Date - COPD, mild (HCC) 10/26/2005 - Depression 01/19/2011 - Essential hypertension 03/31/2015 - Ex-smoker 10/26/2005 Quit 2011. 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 Gage: Left upper back, right upper back. 10/2016 Frontal scalp - Squamous cell lung cancer (HCC) 01/22/[address] Chin Previous Surgical History PAST SURGICAL HISTORY Procedure Laterality Date - EXC SKIN MALIG >4CM REMAINDR BODY 03/14/07 - FECAL OCCULT BLOOD TEST 08/28/2017 negative - INT REPAIR SCALP,NEC,TRUNK 2.6-7.5CM 03/14/07 Family History FAMILY HISTORY Problem Relation Age of Onset - Hypertension Father - Heart Father Patient Allergies ALLERGIES No Known Allergies Current Medications Current Outpatient Prescriptions on File Prior to Visit: hydroCHLOROthiazide (HYDRODIURIL, ESIDRIX) 25 mg tablet TAKE ONE TABLET BY MOUTH ONCE DAILY omega-3 fatty acids 1,000 mg cap Take 1 capsule by mouth once daily. simvastatin (ZOCOR) 40 mg tablet Take 1 tablet by mouth daily at bedtime. metoprolol tartrate, short acting, (LOPRESSOR) 50 mg tablet Take 1 tablet by mouth twice daily. No current facility-administered medications on file prior to visit. Social History Social History Marital status: Spouse name: Years of education: Number of children: Social History Main Topics Smoking status: Former Smoker Packs/day: 0.50 Years: 35.00 Types: Cigarettes Quit date: 03/29/2012 Smokeless tobacco: Never Used Alcohol use: Yes Comment: occasionally Drug use: No Review of Symptoms REVIEW OF SYSTEMS GENERAL: No weight loss, malaise or fevers NECK: Negative for lumps, goiter, pain and significant neck swelling RESPIRATORY: Negative for hemoptysis, wheezing, COPD. shortness of breath slightly increased. Has clear mucus CARDIOVASCULAR: Negative for chest pain, leg swelling, hypertension, CHF or palpitations GI: No nausea, vomiting, or diarrhea and No heartburn or reflux symptoms : No history of dysuria or blood ENDOCRINE: no symptoms of low BS's NEURO: No history of headaches, syncope, paralysis, seizures or tremors EXAM: BP 144/68 Pulse 68 Resp 14 Wt 96.2 kg (212 lb) BMI 32.23 kg/m? General Appearance: Well appearing, alert, in no acute distress, well-hydrated, well nourished. and Overweight. Neck: Supple, no adenopathy; thyroid symmetric, normal size, no bruits. Lungs: Lungs clear to auscultation. No wheezing, rhonchi, rales. Heart: RRR without murmur, gallop, or rubs. No ectopy. Abdomen: Normal abdominal exam, Abdomen soft, non-tender. Bowel sounds normal. No masses, organomegaly. Extremities: No deformities, edema, skin discoloration, clubbing or cyanosis. Good capillary refill. . Health Maintenance List HEPATITIS C SCREENING due on 1994 INFLUENZA(1) due on 03/01/2018 FECAL OCCULT BLOOD due on 08/28/2018 ANNUAL PCP TEAM CHRONIC DISEASE VISIT due on 12/17/2018 BLOOD PRESSURE CONTROLLED due on 12/17/2018 DTAP,TDAP,TD(3 - Td) due on 12/25/2019 DIABETES SCREEN due on 02/04/2021 LIPID SCREEN due on 02/04/2023 PROSTATE CANCER SCREENING DISCUSSION Completed ADULT PREVNAR-13 Completed PNEUMOVAX AGE 65 AND OVER WITH 5YR LOOKBACK Completed Data reviewed Component Latest Ref Rng AND Units 02/14/2017 07/25/2017 02/04/2018 Protein, Total 6.3 - 8.0 g/dL 7.2 7.2 Albumin 3.9 - 4.9 g/dL 4.4 4.0 Calcium 8.5 - 10.2 mg/dL 9.1 10.1 Bilirubin, Total 0.2 - 1.3 mg/dL 0.7 0.7 Alkaline Phosphatase 36 - 108 U/L 68 105 AST 14 - 40 U/L 20 17 Glucose 74 - 99 mg/dL 73 (L) 99 BUN 9 - 24 mg/dL 17 14 Creatinine 0.73 - 1.22 mg/dL 1.29 (H) 1.05 Sodium 136 - 144 mmol/L 137 132 (L) Potassium 3.7 - 5.1 mmol/L 4.3 4.1 Chloride 97 - 105 mmol/L 95 (L) 86 (L) CO2 22 - 30 mmol/L 27 32 (H) Anion Gap 9 - 18 mmol/L 15 14 ALT 10 - 54 U/L 17 13 eGFR- >60 >60 eGFR-All Other Races . 56 >60 Cholesterol, Total <200 mg/dL 165 155 Triglyceride <150 mg/dL 294 (H) 142 HDL Cholesterol >39 mg/dL 44 42 LDL Cholesterol <100 mg/dL 62 85 Non HDL Cholesterol <130 mg/dL 121 113 Fasting Time hrs 10 10 VLDL Cholesterol <30 mg/dL 59 (H) 28 TC:HDL Ratio <5.10 3.75 3.69 LDL:HDL Ratio <2.54 1.41 2.02 A/P ASSESSMENT/PLAN: 1. Mixed hyperlipidemia - ICD9: 272.2, ICD10: E78.2 (primary diagnosis) - good control and - improved control - Continue current dose of simvastatin (Zocor) 40 mg. - Encouraged following a low fat, low cholesterol diet. - Discussed the benefits of regular aerobic exercise and weight loss. - Encouraged following a low carbohydrate, healthy oil intake diet. 2. Essential hypertension - ICD9: 401.9, ICD10: I10 - good control - Continue current medication(s) - Recommended regular aerobic exercise. - Recommend home blood pressure monitoring, to bring results in on next visit - Goal of BP <140/90 - HYDROCHLOROTHIAZIDE 25 MG TABLET 3. COPD, mild (HCC) - ICD9: 496, ICD10: J44.9 - Stable and seeing Pulmonary 4. Major depressive disorder in remission, unspecified whether recurrent (HCC) - ICD9: 296.25, ICD10: F32.5 - Stable and not needing Tx. Will monitor 5. Bilateral leg edema - ICD9: 782.3, ICD10: R60.0 - None on exam today 6. Squamous cell carcinoma of right lung (HCC) - ICD9: 162.9, ICD10: C34.91 - cont pulm and Oncology f/u 7. Hyponatremia - ICD9: 276.1, ICD10: E87.1 recheck - SODIUM/NA BLD Signed Prescriptions Disp Refills hydroCHLOROthiazide (HYDRODIURIL, ESIDRIX) 25 mg tablet 90 tablet 1 Sig: Take 1 tablet by mouth once daily. KIERSTEN: No f/u in 6 months WAE check CMP, FLP, UA and PSA prior MD Semaj Chinchilla MD 02/05/2018 2:06 PM Signed Please get fasting labs and urine test on or after 07/25/2018 prior to next visit. Referring Provider: SELF [[id number]] Allergies As of Date: 02/05/2018 (No Known Allergies) Date Reviewed: 02/05/2018 Reviewed by: Semaj Page - Fully Assessed Reason for Visit: Recheck [92] Cmt: 6 months Primary Visit Diagnosis:Mixed hyperlipidemia [E78.2] Other Visit Diagnoses:Essential hypertension [I10] COPD, mild (HCC) [J44.9] Major depressive disorder in remission, unspecified whether recurrent (HCC) [F32.5] Bilateral leg edema [R60.0] Squamous cell carcinoma of right lung (HCC) [C34.91] Hyponatremia [E87.1] Disorder of prostate [N42.9] Order(s):hydroCHLOROthiazide (HYDRODIURIL, ESIDRIX) 25 mg tabletTake 1 tablet by mouth once daily.Disp: 90 tabletRfl: 1 SODIUM/NA BLD [SQNA] Order #: [id number] FUTURE COMP METABOLIC PANEL [SQCMP] Order #: [id number] FUTURE LIPID PANEL BASIC [SQLIPB] Order #: [id number] FUTURE PSA/PROSTSPECAG DIAG [SQPSA] Order #: [id number] FUTURE URINALYSIS WITH MICROSCOPIC [SQUAWMIC] Order #: [id number] FUTURE Prescriptions as of 02/05/2018 Sig: HYDROCHLOROTHIAZIDE 25 MG TAB* Take 1 tablet by mouth once d* OMEGA-3 FATTY ACIDS 1,000 MG * Take 1 capsule by mouth once * SIMVASTATIN 40 MG TABLET Take 1 tablet by mouth daily * METOPROLOL TARTRATE 50 MG TAB* Take 1 tablet by mouth twice * Problem List As Of Date 02/05/2018 Noted Resolved Ex-smoker [Z87.891] INVALID FOR* Priority: C More... COPD, mild (HCC) [J44.9] INVALID FOR* Priority: A Prostate cancer screening [Z12.5] INVALID FOR* Mixed hyperlipidemia [E78.2] INVALID FOR* Priority: A Essential hypertension [I10] INVALID FOR* Priority: A More... Skin cancer, basal cell [C44.91] INVALID FOR* Priority: D More... Disorder of prostate [N42.9] INVALID FOR* Well adult exam [Z00.00] INVALID FOR* Priority: E More... Neoplasm of uncertain behavior of skin of tempo*INVALID FOR* Priority: D Skin exam, screening for cancer [Z12.83] INVALID FOR* Colon cancer screening [Z12.11] INVALID FOR* More... Bilateral leg edema [R60.0] INVALID FOR* Priority: A More... Medicare annual wellness visit, subsequent [Z00*INVALID FOR* Priority: E More... Squamous cell lung cancer (HCC) [C34.90] INVALID FOR* Priority: B More... 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) [F*INVALID FOR* Priority: A Other instructions from your clinician: Please get fasting labs and urine test on or after 07/25/2018 prior to next visit. Prescriptions ordered this encounter Disp Refills Start End HYDROCHLOROTHIAZIDE 25 MG TABLET 90 t* 1 02/05/2018 Route: ORAL Sig: Take 1 tablet by mouth once daily. Medications Discontinued During This Encounter hydroCHLOROthiazide (HYDRODIURIL, ES* 90 t* 1 10/19/2017 02/05/2018 Sig: TAKE ONE TABLET BY MOUTH ONCE DAILY Disc: Reason for discontinue is not on file. Disposition: Return in about 6 months (around 08/08/2018) for [facility], [facility]/medicare wellness 40 min. Follow-up and Disposition History Recorded Encounter Status:Closed by SEMAJ PAGE on 02/07/18 COMP METABOLIC PANEL Collected: 02/04/2018 Status: F Source: [place] 9:05 AM [facility] [place] REPOSITORY TYPE CODE TESTS RESULT OUT OF REFERENCE UNITS RANGE LAB TP 6.3-8.0 g/dL Protein, Total 7.2 LAB ALB 3.9-4.9 g/dL Albumin 4.0 LAB CA 8.5-10.2 mg/dL Calcium, Total 10.1 LAB TBIL 0.2-1.3 mg/dL Bilirubin, Total 0.7 LAB ALKP 36-108 U/L Alkaline Phosphatase 105 LAB AST 14-40 U/L AST 17 LAB GLU 74-99 mg/dL Glucose 99 Result Comment: The [place] Diabetes Association (ADA) provides guidance for cutoff values for fasting glucose and random glucose. The ADA defines fasting as no caloric intake for at least 8 hours. Fas ting plasma glucose results between 100 to 125 mg/dL indicate increased risk for diabetes (prediabetes). Fasting plasma glucose results greater than or equal to 126 mg/dL meet the criteria for diagnosis of diabetes. In the absence of unequivocal hyperglycemia, results should be confirmed by repeat testing. In a patient with classic symptoms of hyperglycemia or hyperglycemic crisis, random plasma glucose results greater than or equal to 200 mg/dL meet the criteria for diagnosis of diabetes. Reference: Standards of Medical Care in Diabetes 2016, [place] Diabetes Association. Diabetes Care. 2016.39(Suppl 1). LAB BUN 9-24 mg/dL BUN 14 LAB CRET 0.73-1.22 mg/dL Creatinine 1.05 LAB NA 136-144 mmol/L Low Sodium 132 LAB K 3.7-5.1 mmol/L Potassium 4.1 LAB CL 97-105 mmol/L Low Chloride 86 LAB CO2 22-30 mmol/L CO2 High 32 LAB AGAP 9-18 mmol/L Anion Gap 14 LAB ALT 10-54 U/L ALT 13 LAB GFRAA eGFR- Amer. >60 LAB GFRNAA . eGFR-All Other Races >60 Result Comment: eGFR (Estimated GFR) Units of measure: mL/min/1.73 meters squared eGFR is derived from the reexpressed MDRD Study equation using the following parameters: serum creatinine, age, gender and race. The creatinine assay has been calibrated to be traceable to IDMS. An eGFR <60 mL/min/1.73m2 for >3 months is consistent with chronic kidney disease. Refer to KDOQI guidelines for clinical interpretation. In patients with unstable renal function, e.g. those with acute kidney injury, the eGFR may not accurately reflect actual GFR. Performed By: #### CMP, LIPB #### [facility] [address] [place], [place] [address] LIPID PANEL, BASIC Collected: 02/04/2018 Status: F Source: [place] 9:05 AM [facility] REPOSITORY TYPE CODE TESTS RESULT OUT OF REFERENCE UNITS RANGE LAB CHOL <200 mg/dL Cholesterol 155 Result Comment: <200 mg/dL, Desirable 200-239 mg/dL, Borderline high >239 mg/dL, High LAB TRIGLY <150 mg/dL Triglyceride 142 Result Comment: <150 mg/dL, Normal 150-199 mg/dL, Borderline high 200-499 mg/dL, High >499 mg/dL, Very high LAB HDL >39 mg/dL HDL-Cholesterol 42 Result Comment: 40-59 mg/dL, Acceptable >59 mg/dL, High: Negative risk factor for coronary heart disease <40 mg/dL, Low: Positive risk factor for coronary heart disease LAB LDL <100 mg/dL LDL-Cholesterol 85 Result Comment: <100 mg/dL, Optimal 100-129 mg/dL, Near optimal/above optimal 130-159 mg/dL, Borderline high 160-189 mg/dL, High >189 mg/dL, Very high Secondary prevention optimal LDL Cholesterol levels are recommended to be < 70 mg/dL LAB NONHDL <130 mg/dL Non HDL Cholesterol 113 Result Comment: <130 mg/dL, Optimal 130-159 mg/dL, Near optimal/above optimal 160-189 mg/dL, Borderline high 190-219 mg/dL, High >219 mg/dL, Very high Secondary prevention optimal non HDL Cholesterol levels are recommended to be < 100 mg/dL LAB FT hrs Fasting Time 10 LAB VLDL <30 mg/dL VLDL Cholesterol 28 LAB TCHDL <5.10 TC:HDL Ratio 3.69 LAB LDLHDL <2.54 LDL:HDL Ratio 2.02 Result Comment: Reference: 1. National Cholesterol Education Program ATP III Guideline At-A-Glance Quick Desk Reference: National Heart, Lung, and Blood [place]. National Institutes of Health. 2001: NIH Publication No. 01-3305. 2. An International Atherosclerosis Society position paper: global recommendations for the management of dyslipidemia: executive summary, Atherosclerosis. 2014: 232(2):410-413. Performed By: #### CMP, LIPB #### [facility] [address] [id number] CREATININE FINGERSTICK Collected: 01/31/2018 Status: F Source: [place] 7:24 AM [facility] REPOSITORY TYPE CODE TESTS RESULT OUT OF RANGE REFERENCE UNITS LAB L9100.0210 0.70-1.30 mg/dL Normal CREATININE WB 0.7 LAB L9100.0220 >60 mL/min EGFR WB Normal > 60.0000 Performed By: #### L9100.0200 #### [facility] Point of Care [address] [place] [address] BRAIN W/WO CONTRAST Observed: 01/31/2018 Status: F Source: [place] 7:01 AM [facility] REPOSITORY [facility] Imaging Services [address] [place] [address] Brain W/WO Contrast MR#: [id number] Acct: [id number] Name: ANGEL LUIS GAUTAM Rep #: [id number] : 1950 M 67 From: Colleen Miramontes MD PCP: Semaj Page MD Status: REG CLI Study: Brain W/WO Contrast Date of Exam: 01/31/18 Exam# [id number] Ordering Dr: Juan Carlos Plummer MD STUDY: MRI BRAIN WITH AND WITHOUT CONTRAST REASON FOR EXAM: Male, 67 years old. Staging newly diagnosed primary genic carcinoma. TECHNIQUE: Standardized multiplanar fat and water weighted pulse sequences were obtained. 10 ml of Gadavist contrast material was administered intravenously for the contrast portion of the examination. COMPARISON: None. FINDINGS: There is mild cerebral atrophy with widening of the extra- axial spaces and ventricular dilatation. There are a limited number of small white matter hyperintensities, distributed throughout the deep white matter tracts of the cerebral hemispheres, consistent with mild chronic white matter ischemic changes. Normal bilateral basal ganglia. Normal thalami. There is no extra-axial fluid accumulation. Normal flow voids within the major intracranial circulation suggesting patency by spin echo criteria. Normal venous enhancement. There is no enhancing intra-axial or extra-axial abnormality. Normal sella turcica, pituitary gland, infundibular stalk, optic chiasm and hypothalamus. Normal tectal plate and pineal gland. Normal midbrain, day and medulla. Normal cerebellum. Normal basal cisterns. Normal bilateral temporal bones. Normal bilateral internal auditory canals. No demonstrated orbital abnormality, within the constraints of a routine brain study. There is mucoperiosteal inflammatory disease of the paranasal sinuses consistent with mild chronic sinusitis. There is a small right maxillary mucous retention cyst. There is mild deviation of the nasal septum towards the right. Normal calvarium and skull base. Normal visualized soft tissue structures. Normal visualized upper cervical spine. MRI/Brain W/WO Contrast IMPRESSION: 1. Involutional changes of the brain, as described above. 2. No MR evidence for acute infarct or metastasis. Electronically Signed: Colleen Miramontes MD at 11:31 EDT , Service support , CC: Semaj Page MD; Juan Carlos Plummer MD Rn Unit Manager: Signed PET/CT TUMOR BASE Observed: 01/27/2018 Status: F Source: [place] -[place] 12:45 PM [facility] REPOSITORY [facility] Imaging Services [address] [place] [address] PET/CT Tumor Base -Thigh Init MR#: [id number] Acct: [id number] Name: ANGEL LUIS GAUTAM Rep #: [id number] : 1950 M 67 From: Keith Patel DO PCP: Semaj Page MD Status: REG RCR Study: PET/CT Tumor Base -Thigh Init Date of Exam: 01/27/18 Exam# [id number] Ordering Dr: Juan Carlos Plummer MD EXAMINATION: FDG PET CT INDICATIONS: A 67-year-old male with apparent history of primary lung carcinoma presenting for initial staging examination. COMPARISON EXAMINATION: CT of the chest report dated 12/11/17. INDEX LESION SIZE SUV INTERPRETATION Right thoracic perihilum, infrahilar region 4.8 cm x 8.6 cm (frame 178) 14.2 Fulfills quantitative criteria for viable neoplasm NON-INDEX LESION SIZE SUV INTERPRETATION Right lower lateral hemithorax pulmonary parenchyma 1.7 Quantitative criteria for viable neoplasm are not fulfilled, most consistent with an inflammatory process-obstructive pneumonitis TECHNIQUE: Following the intravenous administration of 15.45 mCi of F-18 deoxyglucose via the left antecubital fossa, multiplanar image acquisitions of the neck, chest, abdomen and pelvis to level of mid thigh, obtained at one hour post radiopharmaceutical administration contemporaneously interpreted with the current CT of the neck, chest, abdomen and pelvis to level of mid thigh, dated 01/27/[address] of the chest report dated 12/11/17 reveal: SERUM GLUCOSE LEVEL: 95 mg/dl. HEIGHT: 69 inches. WEIGHT: 215 lbs. FINDINGS: 1. An increase in glucose metabolism is defined in the right thoracic perihilum, infrahilar region generating a calculated maximum standard uptake value of 14.2. The maximal axial diameter of the corresponding metabolic, morphologic abnormality on review of CT of the thorax dated 01/27/18 is 4.8 cm (transverse) x 8.6 cm (AP). 2. There is a heterogeneous increase in glucose concentration observed in the right lower lateral hemithorax pulmonary parenchyma contiguous to apparent visualized atelectatic change on review of CT of the thorax dated 01/27/18 generating a calculated maximum standard uptake value of 1.7. 3. Normal physiologic distribution of the radiopharmaceutical is apparent in the hepatic (4.0) and splenic parenchyma, both renal units, bladder and visualized intestinal tract. There is uniform distribution of the radiopharmaceutical concentration defined in the visualized cerebellar hemispheres and cerebral cortical structures.? Diffuse intestinal tract activity is noted throughout all four quadrants of the abdominal-pelvic retroperitoneum, mesentery consistent with normal physiologic distribution of the radiopharmaceutical. Asymmetric increased glucose concentration is demonstrated in the left diaphragmatic crura without evidence of soft tissue thickening. There is prominent glucose metabolism manifest in the descending thoracic, as well as abdominal aorta. Pertinent CT findings are as follows. CHEST: There are no additional parenchymal densities-masses defined in the bilateral hemithorax. Subcentimeter right-left axillary soft tissue densities with fatty hilus formation are non-glucose avid. Atherosclerotic calcification is defined in the thoracic aorta without evidence of dilatation, aneurysm formation. Coronary arterial calcification is observed. ABDOMEN AND PELVIS: Atherosclerotic calcification is defined in the abdominal aorta without evidence of dilatation, aneurysm formation. Pelvic arterial calcification is demonstrated. Cyst formation appears evident in the left kidney. A small fat-containing left inguinal hernia is noted. Right- left inguinal soft tissue densities with fatty hilus formation are ametabolic. Calcified phlebolith formation is noted in the left lower hemipelvis. SKELETAL: Degenerative changes defined in the cervical, thoracic and lumbar spine demonstrate no evidence for glucose hypermetabolism. PET/PET/CT Tumor Base -Thigh Init IMPRESSION: 1. ABNORMAL EXAMINATION INDICATIVE OF MALIGNANT VIABLE NEOPLASM. 2. Increased glucose concentration identified in the right thoracic perihilum, infrahilar region fulfills quantitative criteria for viable neoplasm. (Rajiv et al, Journal of Clinical Oncology 16:2142, 1998). 3. Subtle increased glucose concentration observed in the right lower lateral hemithorax pulmonary parenchyma corresponding to apparent atelectatic change likely represents activated leukocytes associated with a localized inflammatory process-obstructive pneumonitis. 4. The increase in glucose concentration observed in the descending thoracic, as well as abdominal aorta is commensurate with activated leukocytes associated with atherosclerotic plaque formation. (Handorita et al, Clinical Nuclear Medicine 29:93, 2004). 5. Asymmetric increased glucose concentration visualized in the left diaphragmatic crura is most consistent with a component muscle tension artifact. Electronic Signature Keith Patel D.O. Electronically Signed: Keith Patel DO at 21:43 EDT Tel , Service support , CC: Semaj Page MD; Juan Carlos Plummer MD Rn Unit Manager: Signed ONCOLOGY HISTORY AND Observed: 01/24/2018 Status: F Source: [place] PHYSICAL 10:26 AM [facility] REPOSITORY [facility] Medical Records Department [address] [place] [address] History and Physical 01/24/18 1010 MR#: [id number] Acct: [id number] Name: ANGEL LUIS GAUTAM Rep #: [id number] : 1950 67 From: Juan Carlos Plummer MD PCP: Semaj Page MD Status: REG RCR Y Location: OMD - Problem List (1) Primary cancer of right middle lobe of lung Status: Acute Subjective Date of Service:: 01/24/18 Chief Complaint: Lung cancer History of Present Illness: Patient is a 67-year-old gentleman ex-smoker who started smoking around age 15 averaging 2-1/2-3 packs per day and quit in 2011 and has a baseline COPD dyslipidemia and hypertension. He was in his usual state of health until May 2017 when he experienced an episode of hemoptysis , chest x-ray showed a right middle lobe infiltrate and he was treated for pneumonia and improved. However November 2017 experienced recurrence of hemoptysis in addition to worsening dyspnea and December 11, 2017 CT scan of the chest showed a right middle lobe mass associated with complete atelectasis of the right middle lobe. January 17, 2018 bronchoscopy with EBUS: FINDINGS: The visualized oropharynx appears normal. The vocal cords appeared normal and moved normally with breathing. The subglottic space is normal. The trachea was of normal caliber. The courtney is sharp. The tracheal bronchial trees of the left and right lungs were examined to at least the first subsegmental level. There was scant mucoid secretions noted in the left lower lobe. Within the right tracheal bronchial tree, there was a fungating obstructing mass occupying the orifice of the right middle lobe and right lower lobe. Only a slitlike portion of the right lower lobe orifice could be visualized. The lesion could not be traversed with the bronchoscope. Once the airway inspection was completed, the standard bronchoscope was withdrawn and a convex probe endobronchial ultrasound (EBUS) bronchoscope was inserted through the same route. The endobronchial ultrasound endoscope was then utilized to systematically examine the superior/inferior mediastinal and hilar lymph nodes to assist with fine-needle aspiration. No significant left-sided hilar lymphadenopathy was identified. 2 small lymph nodes were identified at lymph node station #7 (subcarina) and subsequently biopsied In total, 6 transbronchial needle aspirations were completed at 2 different lymph node stations. Transbronchial needle aspiration was performed at lymph node station #7(subcarina) using an Olympus EBUS-TBNA 19-gauge needle and sent for routine cytology. The procedure was guided by ultrasound. 3 samples were obtained. Transbronchial needle aspiration was then performed of the right-sided hilar lesion which encompassed the right middle lobe and right lower lobe takeoff, using an Olympus EBUS-TBNA 19-gauge needle and sent for routine cytology. The procedure was guided by ultrasound. 3 samples were obtained. Rapid on-site evaluation (ELYSIA): Preliminary cytology was suggestive of non-small cell carcinoma. Final pathology results are pending. Following this, the EBUS endoscope was subsequently withdrawn from the patient's airway through the LMA. A conventional bronchoscope was then reinserted into the patient's airway, at which time, endobronchial biopsies were obtained from the right middle lobe orifice, where the fungating mass was most pronounced. A total of 3 endobronchial forceps biopsies were completed. Bronchial washing was completed in the bronchus intermedius. Ice cold saline was infused into the region to facilitate achieving hemostasis. All retained secretions and/or blood was cleared from the patient's airway. The bronchoscope was then withdrawn without complication. The patient was then transferred to the PACU, where they recovered in the usual fashion. IMPRESSION: 1. Large right-sided obstructing lung mass. The fungating endobronchial portions of this lesion obstructed the orifice of the right middle and right lower lobes. The lesion was not able to be traversed by the bronchoscope. 2. Subcarinal lymphadenopathy status post transbronchial needle aspiration 3. Mucoid secretions within the left lower lobe. 4. No significant left-sided hilar adenopathy was identified. Pathology: MICROSCOPIC DIAGNOSIS RML, endobronchial biopsy: Non-small cell carcinoma, favor squamous cell carcinoma DIAGNOSIS CYTOLOGY A. EBUS aspiration #1, site 7: Negative for malignant cells. Adequate for evaluation, lymphocytes present. B. EBUS aspiration #2, site 7: Negative for malignant cells. Mostly blood. A few respiratory epithelial cells. C. EBUS aspiration #3, site 7: Negative for malignant cells. Adequate for evaluation lymphocytes present. D. EBUS aspiration #4, hilar mass: Malignant cells present derived from non-small cell carcinoma. E. EBUS aspiration #5, hilar mass: Malignant cells present derived from non-small cell carcinoma. F. EBUS aspiration #6, hilar mass: Malignant cells present derived from non-small cell carcinoma. G. Site 7, TBNA, fluid (cytospin and cell block): Negative for metastatic carcinoma. See cytology study and comment. H. Hilar mass, TBNA (cytospin and cell block): Malignant cells present derived from non-small cell carcinoma, favor squamous cell carcinoma. See comment. I. RML, washing (cytospin and cell block): A few atypical squamous epithelial cells are noted. ANTIBODY / CLONE RESULT Block H AE1-3 (AE1/AE3/PCK26) positive, focal CK7 (OV-TL12/30) negative CK8 (14softW94) positive, focal CK20 (KS20.8) negative TTF-1 (8G7G3/1) negative Napsin A (Rabbit Polyclonal) negative HepPar (OCh1E5) negative RCC (PN-15) negative PSA (ER-PR8) negative CK5-6 (D5 AND 1684) positive P40 (BC28) positive Power of Radiology Technician: Yes Living Will: Yes Health History: Past Medical History (Last Updated 01/24/18 @ 09:46 by Juan Carlos Plummer MD) Hemoptysis (Acute) Pneumonia (Acute) Hyperlipidemia (Chronic) Hypertension (Chronic) Past Surgical History (Last Reviewed 01/24/18 @ 09:22 by Lluvia Berkowitz) EBUS (Resolved) H/O hernia repair (Resolved) Family History (Last Reviewed 01/24/18 @ 09:22 by Lluvia Berkowitz) Father Myocardial infarction Hypertension Mother Pneumonia Allergies/Adverse Reactions: Allergy/AdvReac Type Severity Reaction Status Date / Time No Known Allergies Allergy Verified 01/24/18 09:22 Risk Factors Social History Smoking Status Former smoker Tobacco Risk Data: Tobacco Risk Smoking Status Former smoker Type of tobacco: Smokeless tobacco usage: Items/Day: Year started: Years used: Counseled to quit/cut down: Reason for no counseling performed: Reason for no pharmacotherapy: Tobacco use comments: Passive smoke exposure: Substance Risk Drug use: No Caffeine use [drinks/day]: Alcohol use: Yes Type of alcohol: HOLIDAYS/SPECIAL OCCASIONS ONLY Drinks per day: Has patient felt the need to cut down: Has the patient been annoyed by complaints: Has the patient felt guilty about drinking: Has the patient needed an eye marketing operations assistant in the mornings: Comments: Review of Systems Constitutional:: Reports: Weight loss, Appetite change. Denies: Fever, Sweats, Chills Cardiovascular:: Reports: Dyspnea on exertion. Denies: Chest pain, Palpitations, Orthopnea, PND, Shortness of breath Respiratory: Reports: Cough, Hemoptysis, Shortness of breath upon exertion. Denies: Shortness of Breath, Wheezing Gastrointestinal:: Denies: Abdominal pain, Nausea, Vomiting, Diarrhea, Constipation, Hematochezia Genitourinary: Denies: Dysuria, Hematuria, 15, Flank pain Musculoskeletal:: Denies: Back pain, Myalgia, Arthralgia Skin: Denies: Rash, Skin Changes, Wounds Neurological:: Denies: Headache, Dizziness, Visual changes, Tinnitus, Hearing loss Psychiatric: Denies: Anxiety, Depression, Homicidal Ideations, Suicidal Ideations Vital Signs Height 5 ft 9 in Weight: 96.162 kg Weight in Pounds 212.0 lbs Pulse Ox 95 - Physical Exam General: Alert, Oriented x3, No apparent distress, - - ECOG 1 HEENT: Atraumatic, PERRLA, EOMI, Normocephalic Oropharynx:: Dry mucosa Neck:: Supple, Trachea midline. Negative for: JVD, bilateral Cardiac:: Regular rate, Regular rhythm, Normal S1, Normal S2. Negative for: Murmur Lungs: Clear to auscultation, Diminished, Excusion symmetrical. Negative for: Rhonchi, Wheezes Abdomen:: Soft, Non-tender, Non-distended. Negative for: Hepatosplenomegaly Extremities:: Negative for: Cyanosis, Edema Neurological: Neuro grossly intact Skin:: - - Scars from multiple past skin cancer surgeries (nonmelanoma. 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 Comorbid conditions: COPD, hypertension and dyslipidemia. Plan: #1 staging to include PET/CT and brain MRI. #2 PFTs #3 Treatment recommendations after above. #4 Patient requested a disabled parking permit (respiratory limitations) and given letter to present at [facility] Patient was seen was his impression and plan discussed Primary Care Provider: Semaj Page MD Referring Provider: Antonio Chin DO 01/24/18 1026 <Electronically signed by Juan Carlos Plummer MD> Date Juan Carlos Plummer MD Cosigner Signature: Date (if applicable) CC: Antonio Chin D.O.; Semaj Page MD; Juan Carlos Plummer MD Signed PULMONARY VISIT REPORT Observed: 01/22/2018 Status: F Source: [place] 10:28 AM [facility] [facility] RE[facility] [address] [place] [address] OFFICE VISIT Date of Service: 01/22/18 MR#: [id number] Acct: [id number] Name: ANGEL LUIS GAUTAM Rep #: [id number] : 1950 Provider: Antonio Chin D.O. Age/Sex: 67/M Location: [facility] [place] Status: Signed Assessment AND Plan 1. Squamous cell lung cancer C34.90 Plan The patient has newly diagnosed squamous cell carcinoma and requires oncology follow-up. A referral has been placed accordingly. Will defer further staging workup to oncology accordingly. He will be taken to meet the oncology group following the conclusion of today's office visit. We will see him in follow-up in approximately 6 weeks. Orders Orders: Referrals: 2. Tobacco dependence in remission F17.201 Plan Given the patient's smoking history, and his current complaints of shortness of breath and cough, recommend proceeding with obtaining baseline pulmonary function testing along with a 6 minute walk test to evaluate for any exertional hypoxia. The patient is currently utilizing albuterol on an as-needed basis and will likely require a long-acting maintenance medication, if an obstructive ventilatory impairment is noted on his PFTs. The patient will follow up with our nurse practitioner in 6 weeks to review the results of his tests and to initiate therapy, if clinically indicated. Orders Orders: Referrals: Plan Detail Follow Up 6 Weeks (CSM) HPI HPI Comments Details: The patient is a 67-year-old male who presents to the clinic today in follow-up from a recent bronchoscopy. If you recall, the patient was initially admitted to the hospital in November 2017 with complaints of shortness of breath, cough and hemoptysis. The patient has a smoking history that includes 2-1/2 packs per day 20 years, having quit completely in 2009. He has never undergone formal pulmonary function testing previously. 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 During the patient's hospitalization, a CT chest with contrast was obtained which revealed an obstructing mass encompassing the right middle lobe bronchus and measuring 3.5 x 3 cm in size. The patient was evaluated by pulmonary medicine, given concerns for potential malignancy. Options for moving forward for diagnostic purposes was discussed with the patient. Following a discussion with Dr. Rcihey, the patient agreed to proceed with airway evaluation by EBUS. On January 17, 2018, the patient underwent bronchoscopy with endoscopic endobronchial ultrasound, transbronchial needle aspiration, endobronchial biopsies and bronchial washings. On airway evaluation, the patient was noted to have a fungating obstructing mass occupying the orifice of the right middle and right lower lobe bronchi. The lesion cannot be traversed with the bronchoscope. While no significant left-sided adenopathy was identified, a sizable subcarinal lymph node was identified with ultrasound and subsequently biopsied. That lymph node was negative for malignancy. Transbronchial needle aspiration was performed of the right hilar lesion and endobronchial biopsies were obtained from the fungating mass aforementioned. The patient's transbronchial needle aspiration of the right infrahilar mass and endobronchial biopsies were all positive for non-small cell carcinoma, favor squamous cell carcinoma. Today, the patient is accompanied by his . The results from his recent EBUS were discussed at length. The patient would like to pursue evaluation for treatment by the oncology group here. He has baseline exertional shortness of breath along with a chronic cough that is productive of white sputum. He has not had any residual hemoptysis following his discharge from the hospital. He reports occasional wheezing and chest tightness and currently utilizes albuterol in metered-dose form approximately every 4 hours. His weight has been stable. He denies fevers, chills or night sweats. Intake Vital Signs01/22/18 Height 5 ft 9 in 01/22/18 Weight: 215 lb Intake Visit Reasons: EBUS results Chief Complaint: Coughing up blood [employer] Tr[employer] Work[employer] Required: No Accompanied by: Is patient in pain?: No Allergies No Known Allergies Allergy (Verified 01/22/18 09:50) Medications Hydrochlorothiazide [Hctz] 25 mg PO DAILY 06/16/17 [History Confirmed 01/22/18] Metoprolol Tartrate [Lopressor (beta shorty)] 50 mg PO BID 06/16/17 [History Confirmed 01/22/18] Simvastatin [Zocor] 40 mg PO QHS 06/16/17 [History Confirmed 01/22/18] [place]-3 Fatty Acids/Fish Oil [Fish Oil 1,000 mg Capsule] 1 ea PO DAILY 12/11/17 [History Confirmed 01/22/18] Albuterol IH (ProAir) [Proair Hfa] 1 puff INHALATION Q4H PRN PRN #1 inhaler 12/12/17 [Rx Confirmed 01/22/18] Guaifenesin [Mucinex] 1,200 mg PO BID 01/14/18 [History Confirmed 01/22/18] PFSH Medical History Hemoptysis (Acute) Lung mass (Chronic) Pneumonia (Acute) Hyperlipidemia (Chronic) Hypertension (Chronic) Surgical History EBUS (Resolved) H/O hernia repair (Resolved) Family History Father Myocardial infarction Hypertension Mother Pneumonia Social History Smoking Status: Former smoker quit date: 07/01/11 pack-years: 80 alcohol intake: current alcohol intake frequency: holidays/special occasions only substance use type: does not use Review of Systems Const CONSTITUTIONAL: Positive fatigue; negative anorexia, body ache, chills, daytime sleepiness, fever(s), night sweats, oral thrush, stops breathing during sleep, weight loss, sleeping in chair, weight loss, weight gain, frequent colds, seasonal allergies, other, headache(s) or orthopnea EETM Ear Nose Throat Mouth: Positive hearing normal; negative hard of hearing, hoarseness, dry mouth in morning, change in vision, itchy eyes, eye pain, swallowing Difficulty, ear pain, nose bleed, headache(s), mouth pain, nasal congestion, nasal discharge, post nasal drip, sinus pain, sinus pressure, sore throat or other Cardio Cardiovascular: Negative chest pain, chest pain at rest, chest pain with activity, irregular heart rhythm, edema, shortness of breath when lying down, palpitations, murmur or other Resp Respiratory: Positive as per HPI, shortness of breath shortness of breath: Positive with activity, wheezing, cough cough: Positive productive color: Positive white and chest tightness; negative pain with cough, chest congestion, pain on inspiration, inhalers, increase use of rescue inhalers, snoring, apnea or other Gastro Gastrointestional: Negative bloody stools, change in appetite, difficulty swallowing, reflux, hematemesis, melena stool, loose stool, constipation or other Genitourinary: Negative blood in urine, nocturia, pain with urination or other Musc Musculoskeletal: Negative body pain, back pain, neck pain or other Skin/Breast Skin/Breast: Negative dry skin, itching, rash, unusual bruising, breast lump or other Neuro Neurological: Negative restless legs, confusion, weakness or other Psych Psychocological: Negative abnormal sleep pattern, anxiety, thoughts of hurting self/others, hopelessness or other Lymph Lymphatic: Negative easy bleeding, easy bruising, swollen lymph nodes or other Exam Const Constitutional: Positive conversant, cooperative, in no acute respiratory distress, well developed, well nourished and good hygiene Head Head: Positive normocephalic and atraumatic; negative cyanosis of lips/distal nose Eyes Eye: Positive clear conjunctiva; negative nystagmus or scleral abnormality Ears Ear: Positive hearing normal and external ears normal; negative hard of hearing Nose Nose: Positive external nose normal; negative epistaxis Mouth Mouth: Positive oral mucosae normal and posterior oropharynx is adequate; negative no lesions or post nasal drip Mallampati Score: II: Mallampati Score Neck Neck: Positive normal visual inspection and trachea midline; negative lymphadenopathy Chest Wall Chest: Positive symmetric chest movement Normal AP diameter. Resp lung sounds: Positive diminished diminished: Positive bialteral; negative wheezes, rhonchi or rales Cardio Cardiac: Positive regular rate, regular rhythm, S1 normal and S2 normal; negative rub, gallop or murmur GI GI: Positive normal bowel sounds Soft without distention Genitourinary: Positive deferred Musc Musculoskeletal: Positive steady gait Skin Pulmonary Skin Exam: Positive intact; negative lesion, ulcers, dermal atrophy or rash Pulses Pulse: Yes Pedal pulses present: Extremities Extremities: No clubbing, No cyanosis, No edema Neuro Neurologic: Yes conversant, Yes no focal neuro deficits, Yes cooperative Lymph Lymphatic: No lymphadenopathy Psych Appearance: Positive grossly normal Mental Status: Positive mental status grossly normal Mood: Positive congruent mood Affect: Positive normal affect Coding Level of Care Code Off vis,est,level 3 Diagnoses Squamous cell lung cancer C34.90 Tobacco dependence in remission F17.201 01/22/18 1028 <Electronically signed by Antonio Chin DO> Date Antonio Chin DO Cosigner Signature: Date (if applicable) CC: Semaj Page MD; Juan Carlos Plummer MD OPERATIVE REPORT Observed: 01/17/2018 Status: F Source: [place] 2:05 PM [facility] REPOSITORY [facility] Medical Records Department [address] [place] [address] Operative Report 01/17/18 1353 MR#: [id number] Acct: [id number] Name: ANGEL LUIS GAUTAM Rep #: [id number] : 1950 67 From: Antonio Chin DO PCP: Semaj Page MD Status: REG SD Y Location: [place] [address] Operative Report Date of Procedure: 01/17/18 BRONCHOSCOPY (EBUS) PROCEDURE REPORT DATE OF SERVICE: January 17, 2018 BRIEF HISTORY: The patient is a 67-year-old male was initially admitted to the hospital in November 2017 with complaints of shortness of breath, cough and hemoptysis. The patient has a smoking history that includes 2-1/2 packs per day 20 years, having quit completely in 2009. He has never undergone formal pulmonary function testing previously. 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 During the patient's hospitalization, a CT chest with contrast was obtained which revealed an obstructing mass encompassing the right middle lobe bronchus and measuring 3.5 x 3 cm in size. The patient was evaluated by pulmonary medicine, given concerns for potential malignancy. Options for moving forward for diagnostic purposes was discussed with the patient. Following a discussion with Dr. Richey, the patient agreed to proceed with airway evaluation by EBUS. PROCEDURE: Bronchoscopy with endoscopic endobronchial ultrasound (EBUS), transbronchial needle aspiration, endobronchial biopsies and bronchial washing INDICATION: Lung mass PHYSICIAN: Antonio Chin DO ANESTHETIC: This procedure was completed under the supervision of anesthesia. Please refer to their documentation accordingly. COMPLICATIONS: No immediate complications noted. DESCRIPTION OF PROCEDURE: A history and physical has been performed. Please see outpatient pulmonary clinic note. The patient's medications and allergies have been reviewed. The risks and benefits of the procedure and sedation options and risks were discussed with the patient at length. All questions were answered and informed consent was obtained. The patient's identification and proposed procedure were verified prior to the procedure by the physician. ASA GRADE ASSESSMENT: II After obtaining informed consent, the bronchoscope was introduced through the mouth, via laryngeal mask airway and advanced to the tracheal bronchial tree bilaterally. The procedure was accomplished without difficulty. The patient tolerated the procedure well. FINDINGS: The visualized oropharynx appears normal. The vocal cords appeared normal and moved normally with breathing. The subglottic space is normal. The trachea was of normal caliber. The courtney is sharp. The tracheal bronchial trees of the left and right lungs were examined to at least the first subsegmental level. There was scant mucoid secretions noted in the left lower lobe. Within the right tracheal bronchial tree, there was a fungating obstructing mass occupying the orifice of the right middle lobe and right lower lobe. Only a slitlike portion of the right lower lobe orifice could be visualized. The lesion could not be traversed with the bronchoscope. Once the airway inspection was completed, the standard bronchoscope was withdrawn and a convex probe endobronchial ultrasound (EBUS) bronchoscope was inserted through the same route. The endobronchial ultrasound endoscope was then utilized to systematically examine the superior/inferior mediastinal and hilar lymph nodes to assist with fine-needle aspiration. No significant left-sided hilar lymphadenopathy was identified. 2 small lymph nodes were identified at lymph node station #7 (subcarina) and subsequently biopsied In total, 6 transbronchial needle aspirations were completed at 2 different lymph node stations. Transbronchial needle aspiration was performed at lymph node station #7(subcarina) using an Olympus EBUS-TBNA 19-gauge needle and sent for routine cytology. The procedure was guided by ultrasound. 3 samples were obtained. Transbronchial needle aspiration was then performed of the right-sided hilar lesion which encompassed the right middle lobe and right lower lobe takeoff, using an Olympus EBUS-TBNA 19-gauge needle and sent for routine cytology. The procedure was guided by ultrasound. 3 samples were obtained. Rapid on-site evaluation (ELYSIA): Preliminary cytology was suggestive of non-small cell carcinoma. Final pathology results are pending. Following this, the EBUS endoscope was subsequently withdrawn from the patient's airway through the LMA. A conventional bronchoscope was then reinserted into the patient's airway, at which time, endobronchial biopsies were obtained from the right middle lobe orifice, where the fungating mass was most pronounced. A total of 3 endobronchial forceps biopsies were completed. Bronchial washing was completed in the bronchus intermedius. Ice cold saline was infused into the region to facilitate achieving hemostasis. All retained secretions and/or blood was cleared from the patient's airway. The bronchoscope was then withdrawn without complication. The patient was then transferred to the PACU, where they recovered in the usual fashion. IMPRESSION: 1. Large right-sided obstructing lung mass. The fungating endobronchial portions of this lesion obstructed the orifice of the right middle and right lower lobes. The lesion was not able to be traversed by the bronchoscope. 2. Subcarinal lymphadenopathy status post transbronchial needle aspiration 3. Mucoid secretions within the left lower lobe. 4. No significant left-sided hilar adenopathy was identified. RECOMMENDATIONS: 1. Await final pathology results. 2. Follow-up in the pulmonary medicine clinic next week for a review of the pathology results. 3. The patient was advised that if he coughs up copious amounts of blood to present immediately to the emergency department. Code Visit 9xxxx: Other Procedure See Report - [id number] 01/17/18 1405 <Electronically signed by Antonio Chin DO> Date Antonio Chin DO CC: Antonio Chin D.O.; Semaj Page MD Signed HISTORY AND PHYSICAL Observed: 01/17/2018 Status: F Source: [place] EXAM 1:53 PM [facility] REPOSITORY [facility] Medical Records Department [address] [place] [address] History and Physical 01/17/18 1347 MR#: [id number] Acct: [id number] Name: ANGEL LUIS GAUTAM Rep #: [id number] : 1950 67 From: Antonio Chin DO PCP: Semaj Page MD Status: [facility] SD Y Location: [place] [address] History of Present Illness Date of Admission: 01/17/18 Chief Complaint: Lung mass The patient is a 67-year-old male was initially admitted to the hospital in November 2017 with complaints of shortness of breath, cough and hemoptysis. The patient has a smoking history that includes 2-1/2 packs per day 20 years, having quit completely in 2009. He has never undergone formal pulmonary function testing previously. 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 During the patient's hospitalization, a CT chest with contrast was obtained which revealed an obstructing mass encompassing the right middle lobe bronchus and measuring 3.5 x 3 cm in size. The patient was evaluated by pulmonary medicine, given concerns for potential malignancy. Options for moving forward for diagnostic purposes was discussed with the patient. Following a discussion with Dr. Richey, the patient agreed to proceed with airway evaluation by EBUS. Past Medical History Medical History: Medical History (Last Updated 12/12/17 @ 03:25 by Alexandr Olmstead DO) Hyperlipidemia E78.5 Hypertension I10 Allergies No Known Allergies Allergy (Verified 01/17/18 11:44) Home Medications: Ambulatory Orders Medication Instructions Recorded Surgical History: - - hernia repair as infant, otherwise no surgical hx Psychiatric History: No pertinent psych hx Smoking Status: Former smoker - *Family History Maternal History Items: - - no malignancy. from CHF in her 80's Paternal History Items: Heart Disease, - - from [place] in his 70's, no malignancies Review of Systems Constitutional: Denies: Chills, Fever, Weight Change HEENT: Denies: Head Aches, Sinus Congestion, Sinus Drainage Cardiovascular: Denies: Chest Pain, Palpitations Respiratory: Reports: Cough, Shortness of Breath, Sputum production Gastrointestinal: Denies: Abdominal Pain, Nausea, Vomiting Genitourinary: Denies: Dysuria Musculoskeletal: Denies: Joint Pain, Joint Tenderness Skin: Denies: Rash, Wounds Neurological: Denies: Numbness, Tingling, Focal weakness Psychiatric: Denies: Anxiety, Depression, Homicidal Ideations, Suicidal Ideations Hematologic/ Lymphatic: Denies: Easy Bruising, Easy Bleeding VTE Information - Inpt Only VTE Present on Admission: No VTE Mechan Device Prophylaxis: None VTE Pharm Prophylaxis ordered?: No Reason prophylaxis not ordered:: Treatment Not Indicated - Physical Exam General: Alert, Cooperative, No apparent distress HEENT: Atraumatic, PERRLA, Normocephalic Oral: No Gingival or Mucosal Lesions/ Ulcerations Neck: Supple, No Nodes, Trachea Midline Lungs: No rhonchi, No rales, Diminished, Wheezes Cardiovascular: Regular rate, Regular Rhythm, Normal S1, Normal S2, No murmurs Abdomen: Bowel Sounds Present, Soft, Non Tender, Non-Distended Extremities: No clubbing, No cyanosis, No edema Skin: No breakdown Musculoskeletal: No Muscle Wasting Lymphatic: No Cervical, Supraclavicular, or Inguinal Adenopathy Neurological: Neuro grossly intact Psych/Mental Status: Normal Affect, Appropriate Vital Signs Temp Pulse Resp BP Pulse Ox 98.3 F 71 22 H 99/46 L 97 01/17/18 13:35 01/17/18 13:35 01/17/18 13:35 01/17/18 13:35 01/17/18 13:35 Oxygen Flow Rate (L/min) 6 Oxygen Delivery Method Nasal Cannula Weight: 213 lb 6.519 oz Body Mass Index (BMI) 31.5 Assessment/Plan All Active Problems (Last Updated 12/12/17 @ 03:25 by Alexandr Olmstead DO) Hemoptysis (Acute) Lung mass (Acute) Pneumonia (Acute) IMPRESSIONS/PLAN: 1. Right hilar lung mass concerning for underlying malignancy, given the patient's smoking history. We will plan to proceed with airway evaluation and diagnostic lymph node/mass sampling by EBUS. The procedure was again explained to the patient at length. Questions were answered accordingly. Risks and benefits were reviewed. The patient was in agreement to proceed accordingly. 01/17/18 1353 <Electronically signed by Antonio Chin DO> Date Antonio Chin DO Cosigner Signature: Date (if applicable) CC: Antonio Chin D.O.; Semaj Page MD Signed BODY FLUID CELL Collected: 01/17/2018 Status: C Source: [place] COUNT+DIFF 1:44 PM [facility] REPOSITORY Order Comment: The reference range and other method performance specifications have not been established for this body fluid. The test must be integrated into the clinical context for interpretation. Specimen Source: BAL RML TYPE CODE TESTS RESULT OUT OF RANGE REFERENCE UNITS LAB L200.3100 Normal BRONCHIAL SOURCE/BF LAVAGE LAB L200.3200 RED Normal COLOR/BF LAB L200.3300 Normal CLOUDY APPEAR/BF LAB L200.3380 10 3/ul Test Normal BFTC# not performed LAB L200.3400 /mm3 16567 Normal RBC/BF LAB L200.3500 /mm3 45 Normal WBC/BF LAB L200.4400 Normal PATH Reviewed COMM/BF Result Comment: Negative for malignant cells. Please also refer to cytology report [id number] and [id number]. Viktor Guerrero M.D. 01/21/18 AMENDED REPORT 01/21/18 1623 PATH COMM/BF previously reported as: May follow LAB L200.3600 % Normal PMN 80 LAB L200.3700 % Normal LYMPH 20 Performed By: #### L200.0200 #### [facility] [address] [place], [address] CYTOLOGY, WASHINGS Collected: 01/17/2018 Status: F Source: [place] 1:44 PM [facility] REPOSITORY TYPE CODE TESTS RESULT OUT OF RANGE REFERENCE UNITS LAB L350.1100 SEE Normal PATHOLOGY CYTOLOGY,WA REPORT SH Result Comment: Specimen submitted to Anatomical Pathology Department for testing. Performed By: #### L350.1100 #### [facility] [address] [place], [address] LUNG, BIOPSY Observed: 01/17/2018 Status: F Source: [place] 12:50 PM [facility] REPOSITORY Patient: ANGEL LUIS GAUTAM : 1950 (67/M) Acct Num: [id number] Phys: Antonio Chin D.O. Unit Num: [id number] Loc: EN Specimen: [id number] Received: 01/17/18 - 0 Spec Type: LUNG BX TISSUES TISSUES: Lung, NOS COMMENT Please make reference to corresponding cytology specimen ([id number]) right hilar mass, TBNA with diagnosis of malignant cells present derived from non-small cell carcinoma, favor squamous cell carcinoma. GROSS DESCRIPTION Received in fixative is one container labeled with the patient's name and designated endobronchial biopsy RML. The specimen consists of multiple irregular fragments of light spangler soft tissue that in aggregate measure 1 x 0.2 x 0.1 cm. The specimen is totally submitted in one cassette. / BOB:sonali 01/20/18 TC:0 CPT: 63329 HEADER OPERATION: EBUS and TBNA, endobronchial biopsy, washing PRE-OP DIAGNOSIS: Right hilar mass TISSUE SUBMITTED: Endobronchial biopsy RML MICROSCOPIC DESCRIPTION Slides are reviewed. MICROSCOPIC DIAGNOSIS RML, endobronchial biopsy: Non-small cell carcinoma, favor squamous cell carcinoma. See comment. BOB:sonali 01/21/18 Signed Viktor Guerrero 01/21/18 <signature on file> Performed By: #### JACKELYNUNG #### [facility] [address] [place], [address] ASPIRATION (SLIDES Observed: 01/17/2018 Status: F Source: [place] ONLY) 12:50 PM [facility] REPOSITORY Patient: ANGEL LUIS GAUTAM : 1950 (67/M) Acct Num: [id number] Phys: Antonio Chin D.O. Unit Num: [id number] Loc: EN Specimen: [id number] Received: 01/17/18 - 1330 Spec Type: ASPIRATION TISSUES TISSUES: A. Lung, NOS B. Lung, NOS C. Lung, NOS D. Lung, NOS E. Lung, NOS F. Lung, NOS G. Lung, NOS H. Lung, NOS I. Bronchus of right middle lobe COMMENT The specimen is evaluated at the time of procedure by Dr. Guerrero. Immediate evaluation: A. EBUS aspiration #1, site 7: Negative for malignant cells. Adequate, lymphocytes present. B. EBUS aspiration #2, site 7: Negative for malignant cells. Mostly blood. A few respiratory epithelial cells. C. EBUS aspiration #3, site 7: Negative for malignant cells. Adequate, lymphocytes present. D. EBUS aspiration #4, hilar mass: Malignant cells present derived from non- small cell carcinoma. E. EBUS aspiration #5, hilar mass: Malignant cells present derived from non- small cell carcinoma. F. EBUS aspiration #6, hilar mass: Malignant cells present derived from non- small cell carcinoma. H. Immunohistochemistry ([id number]) supports the above diagnosis. CYTOLOGY GROSS A Received labeled with the patient s name, and designated EBUS FNA, aspiration #1, site 7. The specimen consists of two smears submitted for immediate cytologic evaluation (wet read). B - Received labeled with the patient s name, and designated EBUS FNA, aspiration #2, site 7. The specimen consists of two smears submitted for immediate cytologic evaluation (wet read). C - Received labeled with the patient s name, and designated EBUS FNA, aspiration #3, site 7. The specimen consists of two smears submitted for immediate cytologic evaluation (wet read). D - Received labeled with the patient s name, and designated EBUS FNA, aspiration #4, right hilar mass. The specimen consists of two smears submitted for immediate cytologic evaluation (wet read). E - Received labeled with the patient s name, and designated EBUS FNA, aspiration #5, right hilar mass. The specimen consists of two smears submitted for immediate cytologic evaluation (wet read). F - Received labeled with the patient s name, and designated EBUS FNA, aspiration #6, right hilar mass. The specimen consists of two smears submitted for immediate cytologic evaluation (wet read). G Received in RPMI and labeled with the patient s name, and designated TBNA, site 7. Submitted for cytology preparation including cell block. H - Received in RPMI and labeled with the patient s name, and designated TBNA, hilar mass. Submitted for cytology preparation including cell block. I - Received is 25 ml of dark red cloudy fluid labeled with the patient's name and and designated per the requisition as RML washing. Submitted for cytology preparation including cell block. / SJ:rg 01/17/18 TC:0 CPT: 18263 x3, 22700 x2, 49768 x4, 28604 x3 CYTOLOGY STUDY Slides are reviewed. G. Polymorphous lymphocytes are noted. Malignant cells are not identified. The specimen is adequate for evaluation. DIAGNOSIS CYTOLOGY A. EBUS aspiration #1, site 7: Negative for malignant cells. Adequate for evaluation, lymphocytes present. B. EBUS aspiration #2, site 7: Negative for malignant cells. Mostly blood. A few respiratory epithelial cells. C. EBUS aspiration #3, site 7: Negative for malignant cells. Adequate for evaluation lymphocytes present. D. EBUS aspiration #4, hilar mass: Malignant cells present derived from non-small cell carcinoma. E. EBUS aspiration #5, hilar mass: Malignant cells present derived from non-small cell carcinoma. F. EBUS aspiration #6, hilar mass: Malignant cells present derived from non-small cell carcinoma. G. Site 7, TBNA, fluid (cytospin and cell block): Negative for metastatic carcinoma. See cytology study and comment. H. Hilar mass, TBNA (cytospin and cell block): Malignant cells present derived from non-small cell carcinoma, favor squamous cell carcinoma. See comment. I. RML, washing (cytospin and cell block): A few atypical squamous epithelial cells are noted. SJ:sonali 01/21/18 HEADER OPERATION: EBUS and TBNA, endobronchial biopsy, washing PRE-OP DIAGNOSIS: Right hilar mass TISSUE SUBMITTED: A-C Site 7, D-F Right hilar mass, G Site 7, H Right hilar mass, I RML washing Signed Viktor Guerrero 01/21/18 <signature on file> Performed By: #### PASPS #### [facility] [address] [place], [address] IMMUNOHISTOCHEMISTRY Observed: 01/17/2018 Status: F Source: [place] 12:00 AM [facility] REPOSITORY Patient: ANGEL LUIS GAUTAM : 1950 (67/M) Acct Num: [id number] Phys: Antonio Chin D.O. Unit Num: [id number] Loc: EN Specimen: [id number] Received: 01/21/18 - 1005 Spec Type: IMMUNO TISSUES TISSUES: H. Hilum of lung, NOS SPECIMEN INFORMATION: Tissue Source: H Right hilar mass Clinical Info: Right hilar mass Specimen Number: [id number] CPT code: 11739, 46533 x10 METHODOLOGY: Deparaffinized sections of prefer/formalin-fixed tissue or PAP/DQ stained slides are incubated with monoclonal/polyclonal antibodies/oligonucleotide probes. Localization is made via biotin free immunoperoxidase method. Appropriate controls are performed and reacted as expected. Results on target cell population are indicated in the following table: RESULTS: ANTIBODY / CLONE RESULT Block H AE1-3 (AE1/AE3/PCK26) positive, focal CK7 (OV-TL12/30) negative CK8 (87rgakY36) positive, focal CK20 (KS20.8) negative TTF-1 (8G7G3/1) negative Napsin A (Rabbit Polyclonal) negative HepPar (OCh1E5) negative RCC (PN-15) negative PSA (ER-PR8) negative CK5-6 (D5 AND 1684) positive P40 (BC28) positive These tests were developed and their performance characteristics determined by [facility]. They may not have been cleared or approved by the U.S. Food and Drug Administration. The FDA has determined that such clearance or approval is not necessary. INTERPRETATION: H. Right hilar mass, TBNA: Non-small cell carcinoma, favor squamous cell carcinoma. SJ:sonali 01/21/[address] [facility] [address] [place], [place] [address] Signed Viktor Guerrero 01/21/18 <signature on file> Performed By: #### PIMM #### [facility] [address] [place], [place] [address], [address] CBC W/DIFF, AUTOMATED Collected: 01/14/2018 Status: F Source: [place] 8:32 AM [facility] REPOSITORY TYPE CODE TESTS RESULT OUT OF RANGE REFERENCE UNITS LAB L100.1000 4.4-11.0 K/mm3 Normal WBC 8.9 LAB L100.1200 4.6-6.2 M/mm3 Low RBC 4.53 LAB L100.1300 13.0-16.5 g/dl Normal HGB 13.1 LAB L100.1400 40-54 % Low HCT 39.9 LAB L100.1500 80-94 fL Normal MCV 88.1 LAB L100.1600 27.0-32.0 pg Normal MCH 28.9 LAB L100.1700 32-36 g/gl Normal MCHC 32.8 LAB L100.1810 11.6-14.6 % Normal RDW CV 12.5 LAB L100.1820 35.1-43.9 fl Normal RDW SD 40.5 LAB L100.1900 150-450 K/mm3 Normal PLT 354 LAB L100.2000 6.2-12.0 fl Normal MPV 8.8 LAB L100.2100 47-70 % High NEUT% 71.4 LAB L100.2200 19-41 % Low LY% 17.4 LAB L100.2300 0-10 % Normal MONO% 8.0 LAB L100.2400 0-5 % Normal EO% 2.8 LAB L100.2500 0-1 % Normal BASO% 0.2 LAB L100.2550 0.0-0.9 % Normal IM GRAN % 0.200 Result Comment: IG% - Immature Granulocytes (promyelocytes, myelocytes and metamyelocytes) > 1% indicates that a LEFT SHIFT is Present. LAB L100.2620 2.0-7.7 X10 3/uL Normal Absolute Neut 6.4 LAB L100.2720 0.83-4.51 X10 3/ul Normal Absolute Lymph 1.55 Performed By: #### L100.0100, L300.3900, L300.4310 #### [facility] [address] [facility]. [place], [place], [id number] PROTHROMBIN TIME W/INR Collected: 01/14/2018 Status: F Source: [place] 8:32 AM [facility] REPOSITORY TYPE CODE TESTS RESULT OUT OF RANGE REFERENCE UNITS LAB L300.4150 11.7-14.9 SECONDS Normal PROTIME 13.6 LAB L300.4200 Normal INR 1.0 Performed By: #### L100.0100, L300.3900, L300.4310 #### [facility] [address] [facility]. [place], [place], [id number] PARTIAL THROMBOPLAST Collected: 01/14/2018 Status: F Source: [place] TIME 8:32 AM [facility] REPOSITORY TYPE CODE TESTS RESULT OUT OF RANGE REFERENCE UNITS LAB L300.4310 24.1-36.2 Seconds Normal PTT 34.3 Performed By: #### L100.0100, L300.3900, L300.4310 #### [facility] [address] [facility] [place], [address] PROGRESS Observed: 12/17/2017 Status: COMPLETED Source: [place] 12:23 PM [facility] REPOSITORY HNO ID: [id number] Author: Storm Kilgore Service: (none) Author Type: Physician Any Commodity Buyer Type: Progress Notes Filed: 12/17/2017 2:00 PM Note Text: Chief Complaint Patient presents with: Hospital F/U: patient is here for hospital follow up HPI Angel Luis Gautam is a 67 year old male who presents here today for Hospital Discharge Follow up.. HOSPITAL/ER FOLLOW UP: Reason for visit: hemoptysis. Happened twice Which facility: [facility] Date of visit: 12/11/17-12/12/17 Diagnosis: Lung mass. Hemoptysis. Pneumonia Testing done: CT Chest- Complete atelectasis of the R middle Lobe. An obstructing mass which encompasses the right middle lobe bronchus measuring 3.4x 3.0cm Treatment given: Z-geoff, inhaler, steroid, mucinex. Current symptoms: Still getting a productive cough. Scheduled with Dr. Chin for next month for bronchoscope. Still taking prednisone and mucinex. Using inhaler Has not coughed up any more blood. Past medical history, appointments, medications, allergies reviewed. Previous Medical History PAST MEDICAL HISTORY Diagnosis Date - COPD, mild (HCC) 10/26/2005 - Depression 01/19/2011 - Essential hypertension 03/31/2015 - Ex-smoker 10/26/2005 Quit 2011. 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 Gage: Left upper back, right upper back. 10/2016 Frontal scalp Previous Surgical History PAST SURGICAL HISTORY Procedure Laterality Date - EXC SKIN MALIG >4CM REMAINDR BODY 03/14/07 - FECAL OCCULT BLOOD TEST 08/28/2017 negative - INT REPAIR SCALP,NEC,TRUNK 2.6-7.5CM 03/14/07 Family History FAMILY HISTORY Problem Relation Age of Onset - Hypertension Father - Heart Father Patient Allergies ALLERGIES No Known Allergies Current Medications Current Outpatient Prescriptions on File Prior to Visit: hydroCHLOROthiazide (HYDRODIURIL, ESIDRIX) 25 mg tablet TAKE ONE TABLET BY MOUTH ONCE DAILY omega-3 fatty acids 1,000 mg cap Take 1 capsule by mouth once daily. simvastatin (ZOCOR) 40 mg tablet Take 1 tablet by mouth daily at bedtime. metoprolol tartrate, short acting, (LOPRESSOR) 50 mg tablet Take 1 tablet by mouth twice daily. No current facility-administered medications on file prior to visit. Social History Social History Marital status: Spouse name: Years of education: Number of children: Social History Main Topics Smoking status: Former Smoker Packs/day: 0.50 Years: 35.00 Types: Cigarettes Quit date: 03/29/2012 Smokeless tobacco: Never Used Alcohol use: Yes Comment: occasionally Drug use: No Review of Symptoms REVIEW OF SYSTEMS See hpi. EXAM: BP 118/58 (BP Site: Left Arm, BP Position: Sitting, BP Cuff Size: Large Adult) Pulse 64 Temp 37.2 ?C (99 ?F) (Tympanic) Resp 14 Wt 101.2 kg (223 lb) BMI 33.91 kg/m? General Appearance: Well appearing, alert, in no acute distress, well-hydrated, well nourished.. Neck: Supple, no adenopathy; thyroid symmetric, normal size, no bruits. Lungs: Lungs clear to auscultation. No wheezing, rhonchi, rales. Heart: RRR without murmur, gallop, or rubs. No ectopy. Extremities: No deformities, edema, . Peripheral Pulses: Normal. Health Maintenance List HEPATITIS C SCREENING due on 1994 ZOSTER VACCINE (SHINGRIX)(1 of 2) due on 2000 FECAL OCCULT BLOOD due on 08/28/2018 DTAP,TDAP,TD(3 - Td) due on 12/25/2019 DIABETES SCREEN due on 02/15/2020 LIPID SCREEN due on 07/25/2022 PROSTATE CANCER SCREENING DISCUSSION Completed ADULT PREVNAR-13 Completed INFLUENZA Completed PNEUMOVAX AGE 65 AND OVER WITH 5YR LOOKBACK Completed Data reviewed Hospital reports. CT as above Hgb 12.0 at discharge. Otherwise labs unremarkable ASSESSMENT/PLAN: 1. Bacterial pneumonia - ICD9: 482.9, ICD10: J15.9 (primary diagnosis) Improved Continue prednisone and mucinex 2. Lung mass - ICD9: 786.6, ICD10: R91.[address] Chin for biopsy/scope 3. Hemoptysis - ICD9: 786.30, ICD10: R04.2 See above 4. Anemia, unspecified type - ICD9: 285.9, ICD10: D64.9 Patient with mild anemia at the hospital He is declining repeat blood work at this time Discussed possible red flags and when to seek medical attention. Follow up as scheduled in 2 months Return sooner if symptoms return or change. LUIS DANIEL KILGORE PA-C CNOV Observed: 12/17/2017 Status: COMPLETED Source: [place] 12:20 PM [facility] REPOSITORY Office Visit (FAMPWS) ANGEL LUIS GAUTAM ([id number]) 1950 M Date Time Provider Department 12/17/17 12:20 PM DHAVAL KILGORE) FAMPWS During your visit today, we recorded the following information about you: Temperature Pulse Respiration Blood pressure 99 degrees 64/minute 14/minute 118/58 Weight 101.2 kg LUIS DANIEL KILGORE PA-C 12/17/2017 2:00 PM Signed Chief Complaint Patient presents with: Hospital F/U: patient is here for hospital follow up HPI Angel Luistimbo Gautam is a 67 year old male who presents here today for Hospital Discharge Follow up.. HOSPITAL/ER FOLLOW UP: Reason for visit: hemoptysis. Happened twice Which facility: [facility] Date of visit: 12/11/17-12/12/17 Diagnosis: Lung mass. Hemoptysis. Pneumonia Testing done: CT Chest- Complete atelectasis of the R middle Lobe. An obstructing mass which encompasses the right middle lobe bronchus measuring 3.4x 3.0cm Treatment given: Z-geoff, inhaler, steroid, mucinex. Current symptoms: Still getting a productive cough. Scheduled with Dr. Chin for next month for bronchoscope. Still taking prednisone and mucinex. Using inhaler Has not coughed up any more blood. Past medical history, appointments, medications, allergies reviewed. Previous Medical History PAST MEDICAL HISTORY Diagnosis Date - COPD, mild (HCC) 10/26/2005 - Depression 01/19/2011 - Essential hypertension 03/31/2015 - Ex-smoker 10/26/2005 Quit 2011. 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 Gage: Left upper back, right upper back. 10/2016 Frontal scalp Previous Surgical History PAST SURGICAL HISTORY Procedure Laterality Date - EXC SKIN MALIG >4CM REMAINDR BODY 03/14/07 - FECAL OCCULT BLOOD TEST 08/28/2017 negative - INT REPAIR SCALP,NEC,TRUNK 2.6-7.5CM 03/14/07 Family History FAMILY HISTORY Problem Relation Age of Onset - Hypertension Father - Heart Father Patient Allergies ALLERGIES No Known Allergies Current Medications Current Outpatient Prescriptions on File Prior to Visit: hydroCHLOROthiazide (HYDRODIURIL, ESIDRIX) 25 mg tablet TAKE ONE TABLET BY MOUTH ONCE DAILY omega-3 fatty acids 1,000 mg cap Take 1 capsule by mouth once daily. simvastatin (ZOCOR) 40 mg tablet Take 1 tablet by mouth daily at bedtime. metoprolol tartrate, short acting, (LOPRESSOR) 50 mg tablet Take 1 tablet by mouth twice daily. No current facility-administered medications on file prior to visit. Social History Social History Marital status: Spouse name: Years of education: Number of children: Social History Main Topics Smoking status: Former Smoker Packs/day: 0.50 Years: 35.00 Types: Cigarettes Quit date: 03/29/2012 Smokeless tobacco: Never Used Alcohol use: Yes Comment: occasionally Drug use: No Review of Symptoms REVIEW OF SYSTEMS See hpi. EXAM: BP 118/58 (BP Site: Left Arm, BP Position: Sitting, BP Cuff Size: Large Adult) Pulse 64 Temp 37.2 ?C (99 ?F) (Tympanic) Resp 14 Wt 101.2 kg (223 lb) BMI 33.91 kg/m? General Appearance: Well appearing, alert, in no acute distress, well-hydrated, well nourished.. Neck: Supple, no adenopathy; thyroid symmetric, normal size, no bruits. Lungs: Lungs clear to auscultation. No wheezing, rhonchi, rales. Heart: RRR without murmur, gallop, or rubs. No ectopy. Extremities: No deformities, edema, . Peripheral Pulses: Normal. Health Maintenance List HEPATITIS C SCREENING due on 1994 ZOSTER VACCINE (SHINGRIX)(1 of 2) due on 2000 FECAL OCCULT BLOOD due on 08/28/2018 DTAP,TDAP,TD(3 - Td) due on 12/25/2019 DIABETES SCREEN due on 02/15/2020 LIPID SCREEN due on 07/25/2022 PROSTATE CANCER SCREENING DISCUSSION Completed ADULT PREVNAR-13 Completed INFLUENZA Completed PNEUMOVAX AGE 65 AND OVER WITH 5YR LOOKBACK Completed Data reviewed Hospital reports. CT as above Hgb 12.0 at discharge. Otherwise labs unremarkable ASSESSMENT/PLAN: 1. Bacterial pneumonia - ICD9: 482.9, ICD10: J15.9 (primary diagnosis) Improved Continue prednisone and mucinex 2. Lung mass - ICD9: 786.6, ICD10: R91.[address] Chin for biopsy/scope 3. Hemoptysis - ICD9: 786.30, ICD10: R04.2 See above 4. Anemia, unspecified type - ICD9: 285.9, ICD10: D64.9 Patient with mild anemia at the hospital He is declining repeat blood work at this time Discussed possible red flags and when to seek medical attention. Follow up as scheduled in 2 months Return sooner if symptoms return or change. LUIS DANIEL KILGORE PA-C Referring Provider: SELF [200] Allergies As of Date: 12/17/2017 (No Known Allergies) Date Reviewed: 12/17/2017 Reviewed by: Molly Dias Ma - Fully Assessed Reason for Visit: Hospital F/U [57] Cmt: patient is here for hospital follow up Primary Visit Diagnosis:Bacterial pneumonia [J15.9] Other Visit Diagnoses:Lung mass [R91.8] Hemoptysis [R04.2] Anemia, unspecified type [D64.9] Prescriptions as of 12/17/2017 Sig: HYDROCHLOROTHIAZIDE 25 MG TAB* TAKE ONE TABLET BY MOUTH ONCE* OMEGA-3 FATTY ACIDS 1,000 MG * Take 1 capsule by mouth once * SIMVASTATIN 40 MG TABLET Take 1 tablet by mouth daily * METOPROLOL TARTRATE 50 MG TAB* Take 1 tablet by mouth twice * Problem List As Of Date 12/17/2017 Noted Resolved Ex-smoker [Z87.891] INVALID FOR* Priority: C More... COPD, mild (HCC) [J44.9] INVALID FOR* Priority: A Depression [F32.9] INVALID FOR* Priority: A Prostate cancer screening [Z12.5] INVALID FOR* Mixed hyperlipidemia [E78.2] INVALID FOR* Priority: A Essential hypertension [I10] INVALID FOR* Priority: A More... Skin cancer, basal cell [C44.91] INVALID FOR* Priority: D More... Disorder of prostate [N42.9] INVALID FOR* Well adult exam [Z00.00] INVALID FOR* Priority: E More... Neoplasm of uncertain behavior of skin of tempo*INVALID FOR* Priority: D Skin exam, screening for cancer [Z12.83] INVALID FOR* Colon cancer screening [Z12.11] INVALID FOR* More... Bilateral leg edema [R60.0] INVALID FOR* Priority: A More... Medicare annual wellness visit, subsequent [Z00*INVALID FOR* Priority: E More... Encounter Status:Closed by LUIS DANIEL SANDERS on 12/17/17 12 LEAD ELECTROCARDIOGRAM Observed: 12/16/2017 Status: F Source: [place] 8:59 AM [facility] REPOSITORY [facility] Cardiovascular Services [address] [place] [id number] 12 Lead EKG 12/11/17 2230 MR#: [id number] Acct: [id number] Name: ANGEL LUIS GAUTAM Rep #: [id number] : 1950 67 From: Jame Morejon MD Attending Dr: Anastasia Wolfe MD Status: DIS KAT Ordering Dr: Diane Layton MD Date: 12/11/17 Location: [facility] Sex: M C Admitted: 12/12/17 Test Reason : SOB Blood Pressure : / mmHG Vent. Rate : 057 BPM Atrial Rate : 057 BPM P-R Int : 160 ms QRS Dur : 106 ms QT Int : 450 ms P-R-T Axes : 039 -13 022 degrees QTc Int : 438 ms Sinus bradycardia Leftward axis Confirmed by SOPHIE PATTON, JAME ([id number]), newspaper managing editor EDISON MIRAMONTES ([id number]) on 12/13/2017 2:50:09 PM Referred By: DR GARCIA Confirmed By:JAME MOREJON MD 12/13/17 2401 Date Jame Morejon MD CC: Semaj Page MD; Anastasia Wolfe MD; Diane Layton MD Signed DISCHARGE SUMMARY Observed: 12/12/2017 Status: F Source: [place] 5:22 PM [facility] REPOSITORY [facility] Medical Records Department [address] [place] [address] Discharge Summary 12/12/17 1303 MR#: [id number] Acct: [id number] Name: ANGEL LUIS GAUTAM Rep #: [id number] : 1950 67 From: Anastasia Wolfe MD PCP: Semaj Page MD Status: DIS KAT Y Location: [facility] [id number] Discharge Date and Diagnosis Date of Admission: 12/12/17 Date of Discharge: 12/12/17 - Primary Discharge Diagnosis Active and Suspected Problems (Last Updated 12/12/17 @ 03:25 by Alexandr Olmstead DO) Hemoptysis (Acute) Lung mass (Acute) Pneumonia (Acute) Hospital Course and Treatment Summary of Care Provided: The patient is a 67 year old M who presented to the emergency room due to hemoptysis,CT scan of the chest showed right middle lobe was obstructed with a possible mass. Patient received antibiotics and was admitted to the hospital. Pulmonary medicine was consulted and the patient recommended conventional bronchoscopy and EBUS. Patient opted to follow-up as an outpatient to undergo EBUS for tissue acquisition. Was treated for possible pneumonia and COPD exacerbation with antibiotics, bronchodilators and steroids. Charge will be the stable condition. He will follow-up with Dr. Kaye in 1-2 weeks. Discharge Activity: Return to Normal Activity Home Medications: Medications to take at Discharge Hydrochlorothiazide [Hctz] 25 mg PO DAILY 06/16/17 Metoprolol Tartrate [Lopressor (beta shorty)] 50 mg PO BID 06/16/17 Simvastatin [Zocor] 40 mg PO QHS 06/16/17 [place]ib[place]-3 Fatty Acids/Fish Oil [Fish Oil 1,000 mg Capsule] 1 each PO DAILY 12/11/17 Albuterol IH (ProAir) [Proair Hfa] 1 puff INHALATION Q4H PRN PRN #1 inhaler 12/12/17 Azithromycin [Zithromax Z-Geoff] 250 mg PO UD #1 box 06/14/18 Guaifenesin [Mucinex] 1,200 mg PO BID #20 tab 12/12/17 Prednisone 10 mg PO UD #30 tab 12/12/17 Following Prescrptions Were Given to Patient: Albuterol IH (ProAir) [Proair Hfa] 1 puff INHALATION Q4H PRN PRN #1 inhaler PRN Reason: Bronchospasm Azithromycin [Zithromax Z-Geoff] 250 mg PO UD #1 box Prednisone 10 mg PO UD #30 tab Guaifenesin [Mucinex] 1,200 mg PO BID #20 tab Primary Care Physician: Semaj Page MD [Primary Care Provider] - In 1 Week Please Follow Up With: Ryan Richey MD - 1-2 weeks Medical Necessity - Tobacco Use Smoking Status: Former smoker - 50 yo-hd-jdcegnw, quit 2009 Tobacco Use: Non-smoker Meaningful Use Info Meaningful Use Diagnoses (Choose all that apply): None applicable Code Visit Inpatient E AND M: 29465 Disch Hosp 12/12/17 1722 <Electronically signed by Anastasia Wolfe MD> Date Anastasia Wolfe MD Cosigner Signature (if applicable): Date CC: Semaj Page MD; Anastasia Wolfe MD Signed DISCHARGE INSTRUCTION Observed: 12/12/2017 Status: F Source: [place] 1:02 PM [facility] REPOSITORY [facility] Medical Records Department [address] [place] [address] Instructions for Home/Discharge Instructions 12/12/17 1301 MR#: [id number] Acct: [id number] Name: ANGEL LUIS GAUTAM Rep #: [id number] : 1950 67 From: Anastasia Wolfe MD PCP: Semaj Page MD Status: ADM IN - Discharge Diagnoses Current Active Problems: Current Active and Chronic Problems (Last Updated 12/12/17 @ 03:25 by Alexandr Olmstead DO) Hemoptysis (Acute) Lung mass (Acute) Pneumonia (Acute) You will use the following diet at home:: No restrictions Discharge Activity: Return to Normal Activity Allergies/Adverse Reactions: Allergies No Known Allergies Allergy (Verified 12/11/17 20:57) Medications to take at Discharge Hydrochlorothiazide [Hctz] 25 mg PO DAILY 06/16/17 Metoprolol Tartrate [Lopressor (beta shorty)] 50 mg PO BID 06/16/17 Simvastatin [Zocor] 40 mg PO QHS 06/16/17 [place]-3 Fatty Acids/Fish Oil [Fish Oil 1,000 mg Capsule] 1 each PO DAILY 12/11/17 Albuterol IH (ProAir) [Proair Hfa] 1 puff INHALATION Q4H PRN PRN #1 inhaler 12/12/17 Azithromycin [Zithromax Z-Geoff] 250 mg PO UD #1 box 12/12/17 Guaifenesin [Mucinex] 1,200 mg PO BID #20 tab 12/12/17 Prednisone 10 mg PO UD #30 tab 12/12/17 The following prescriptions were given: Albuterol IH (ProAir) [Proair Hfa] 1 puff INHALATION Q4H PRN PRN #1 inhaler PRN Reason: Bronchospasm Azithromycin [Zithromax Z-Geoff] 250 mg PO UD #1 box Prednisone 10 mg PO UD #30 tab Guaifenesin [Mucinex] 1,200 mg PO BID #20 tab Primary Care Physician: Semaj Page MD [Primary Care Provider] - In 1 Week Please Follow Up With: Ryan Richey MD - 1-2 weeks Proposed Discharge Date: 12/12/17 12/12/17 1302 <Electronically signed by Anastasia Wolfe MD> Date Anastasia Wolfe MD CC: Ryan Richey MD; Semaj Page MD CONSULTATION Observed: 12/12/2017 Status: F Source: [place] 11:53 AM [facility] REPOSITORY [facility] Medical Records Department [address] [facility] [place] [address] Consultation 12/12/17 0919 MR#: [id number] Acct: [id number] Name: ANGEL LUIS GAUTAM Rep #: [id number] : 1950 67 From: Sonja Rossi DIE CUTTER OPERATOR-C PCP: Semaj Page MD Status: ADM IN Y Location: [facility] [id number] ADDENDUM by Ryan Richey MD on 12/12/17 at 1153 Code Visit Patient seen and examined independently in conjunction with nurse practitioner. All data, including note below, was personally reviewed and I agree with the added comments. In brief, patient is a 67-year-old male who presented with a 2 day history of worsening dyspnea and hemoptysis. Patient had a similar presentation in May 2017. Patient was noted to be saturating 92% on room air. CT scan showed a obstruction of the right middle lobe bronchus and postobstructive atelectasis. No pleural effusion was noted. Patient did have a slightly increased lymph nodes at station 7. Patient does report a long history of smoking and has been told that he may have COPD or asthma in the past, but is never had pulmonary function testing. Reports hemoptysis was approximately nickel sized and would not fill of a shot glass over 24 hours. Physical exam was empirically performed and I agree as listed below. Patient was well-developed and speaking in full sentences. There were no palpable masses noted in the axilla, neck or supraclavicular spaces. Patient did have some rhonchi and wheezing noted in the anterior right lung field. Other lung mena were only diminished. There were no clubbing, cyanosis or edema appreciated. No venous stasis changes noted. Laboratory workup was reviewed and showed no significant leukocytosis. Assessment and plan Long discussion with patient and his about diagnostic approaches. Patient is aware that there is high concern for malignancy. Reviewed risks and benefits of diagnostic approaches including: CT-guided biopsy (not recommended), conventional bronchoscopy and EBUS. Patient has decided to proceed with endobronchial ultrasound. Patient understands that there may be a delay in scheduling the procedure, but states that it is more important to have appropriate staging. Signs and symptoms of worsening were reviewed. Patient was given a card and instructed to call us with any difficulties. Our office will call patient early next week availability for the procedure. Informed consent was obtained. All questions were answered. Patient okay to be discharged from a pulmonary perspective with outpatient workup. Inpatient E AND M: [id number] Init Hosp L2 12/12/17 1153 <Electronically signed by Ryan Richey MD> Date Ryan Richey MD cc: Ryan Richey MD; Semaj Page MD * Signed Problem List (1) Hemoptysis Status: Acute (2) Lung mass Status: Acute (3) Pneumonia Status: Acute Reason for Consult Date of Consultation: 12/12/17 Reason for Consultation: lung mass History of Present Illness: The patient is a 67 year old M with no significant PMH except hypertension and hyperlipidemia, presents to the ED on 12/11/17 with complaints of a 2 day history of worsening dyspnea, cough, and hemoptysis. The patient was diagnosed with right middle lobe pneumonia at [facility] ED in May 2017 and had similar symptoms at that time. He was discharged on Levaquin with noted improvement, however a few days after completion of the antibiotic, he again worsened. He has been following up with his primary care physician. He denies any recent antibiotics, steroids, or hospitalizations. Patient reports he has just felt unwell ever since. He has intermittent issues with clearing secretions from his chest. Denies any fevers or chills. He has not had any hemoptysis since his initial presentation in May, other than current course. Initial vitals blood pressure 160/72, pulse 70, RR 16, 98.4 F, and 92% on room air. Chest x-ray on arrival showed an increasing right middle lobe consolidation. Chest CT was obtained and showed atelectasis the right middle lobe and an obstructing mass which encompasses the right middle lobe bronchus measuring approximately 3.4 x 3.0 cm. There is no pleural effusion or pneumothorax. There are shotty mediastinal lymph nodes present. Simple appearing left upper renal pole cyst was also observed. Blood work revealed normal white count and hemoglobin. BUN was 20 and creatinine 1.3. Lactate and troponin were negative. Blood cultures were obtained and are pending. A urine strep/Legionella antigen was negative. The patient was given several breathing treatments with subjective improvement in his dyspnea. He was given Rocephin and azithromycin to cover for pneumonia. Pulmonology was consulted for further workup of his right middle lobe mass. Patient was transferred to the medical surgical unit for further evaluation and management. Patient has remained afebrile and hemodynamically stable. He has not required any oxygen supplementation. Patient denies any past pulmonary disease such as COPD or asthma. He does have a significant smoking history of 2.5 PPD x 20 years, quitting in 2009. He has never had any pulmonary function tests. He was placed on an albuterol inhaler 3-4 years ago that he used briefly, he is unsure what was happening at that time. He typically does not have any dyspnea and is able to perform his daily functions without difficulty. He denies any occupational or environmental exposures. 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 He now works part-time in a [employer]. He denies any past colonoscopies, however he does do a yearly stool test. [place] any family history of cancer. Past Medical History Medical History: Medical History (Last Updated 12/12/17 @ 03:25 by Alexandr Olmstead DO) Hyperlipidemia E78.5 Hypertension I10 Allergies No Known Allergies Allergy (Verified 12/11/17 20:57) Home Medications: Ambulatory Orders Medication Instructions Recorded Hydrochlorothiazide [Hctz] 25 mg PO DAILY 06/16/17 Metoprolol Tartrate [Lopressor 50 mg PO BID 06/16/17 Surgical History: - - hernia repair as infant, otherwise no surgical hx Psychiatric History: No pertinent psych hx Lives: Spouse/ Significant Other Smoking Status: Former smoker - 50 [id number], quit 2009 Tobacco Use: Non-smoker Alcohol: None Drugs: None - *Family History Maternal History Items: - - no malignancy. from [place] in her 80's Paternal History Items: Heart Disease, - - from [place] in his 70's, no malignancies Review of Systems Constitutional: Denies: Anorexia, Chills, Fever, Night Sweats, Malaise, Weakness, Weight Change, Fatigue Eyes: Denies: Vision Change HEENT: Reports: Post Nasal Drip. Denies: Difficulty Swallowing, Hard of Hearing, Head Aches, Nasal bleeding, Sinus Congestion, Sinus Drainage, Sore Throat Cardiovascular: Denies: Chest Pain, Chest Tightness, Edema, Light Headedness, Orthopnea, Palpitations, Paroxysmal Noc. Dyspnea, Syncope Respiratory: Reports: Cough, Hemoptysis, Sputum production - Clear, Wheezing - Intermittent, - - Dyspnea on exertion has resolved. Denies: Pleuritic Pain, Shortness of Breath Gastrointestinal: Denies: Abdominal Pain, Constipation, Diarrhea, Dyspepsia, Hematemesis, Hematochezia, Nausea, Melena, Vomiting Genitourinary: Denies: Dysuria, Frequency, Hematuria, Nocturia, Retention Musculoskeletal: Denies: Back Pain, Muscle pain, Neck Pain Skin: Denies: Rash, Wounds Neurological: Denies: Balance problems, Change in Speech, Confusion, Difficulty swallowing, Focal weakness, Numbness, Tingling, Tremor, Seizures Psychiatric: Denies: Anxiety, Depression Endocrine: Denies: Change in Body Habitus, Polydipsia, Polyuria Hematologic/ Lymphatic: Denies: Adenopathy, Anemia, Easy Bruising, Easy Bleeding, Hx of blood clot, Hx of blood transfusion Patient Problems: Active and Suspected Problems (Last Updated 12/12/17 @ 03:25 by Alexanrd Olmstead DO) Hemoptysis (Acute) Lung mass (Acute) Pneumonia (Acute) Subjective: Patient was seen and examined. He is a pleasant 67-year-old male that does not appear to be in any acute distress. Maintaining appropriate saturations on room air. Denies any hemoptysis today. He does have a productive cough of clear to white sputum, but only occasionally. Denies any fever or chills. No chest pain or shortness of breath. Objective: Clinical Impression(s) from Imaging Studies Chest X-Ray 12/11/17 21:05 IMPRESSION: Increasing right middle lobe consolidation Electronically Signed: Nikolay Costa MD at 21:31 EDT , Service support , Chest CT 12/11/17 22:17 IMPRESSION: 1. Obstructing mass which encompasses the right middle lobe bronchus with associated complete atelectasis of the right middle lobe. 2. Simple appearing left upper renal pole cyst. Electronically Signed: Jed Martinez MD at 0:11 EDT Tel , Service support , - Physical Exam General: Alert, Oriented x3, Cooperative, No apparent distress, Well developed, Well nourished, - - obese HEENT: Atraumatic, PERRLA, Normocephalic Oral: Moist Mucosa, No Gingival or Mucosal Lesions/ Ulcerations Neck: Supple, No JVD, No Nodes, Trachea Midline, - - No palpable masses Lungs: Diminished, - - Rhonchi and wheezing to the right lung, mild. Left clear but diminished. Cardiovascular: Regular rate, Regular Rhythm, Normal S1, Normal S2, No murmurs, PMI Normal, No rub noted, No Gallop Abdomen: Bowel Sounds Present, Soft, Non Tender, Non-Distended, No Hepato-splenomegaly, Obese, No hernias noted Extremities: No clubbing, No cyanosis, No edema, Capillary Refill Less than 3 Seconds, No Calf Tenderness, Peripheral Pulses Normal Skin: No rashes, No breakdown Musculoskeletal: No Tenderness to Palpation of Joints or Extremities Lymphatic: No Cervical, Supraclavicular, or Inguinal Adenopathy Neurological: Cranial nerves II-XII grossly intact, Neuro grossly intact, Motor Exam 5/5 strength throughout Psych/Mental Status: Alert and oriented to time, place, person, mood and affect Vital Signs Temp Pulse Resp BP Pulse Ox 98 F 72 18 124/62 H 95 12/12/17 07:24 12/12/17 09:18 12/12/17 07:24 12/12/17 07:24 12/12/17 07:24 Oxygen Delivery Method Room Air Weight: 222 lb 4 oz Body Mass Index (BMI) 32.8 Intake and Output for Last 24 Hours Intake Total 20 / 20 Balance 20 / 20 Microbiology Past 72 Hours 12/12/17 06:08 Streptococcus pneumoniae Antigen (M - Final Urine, Clean Catch 12/12/17 06:08 Legionella Antigen - Final Urine, Clean Catch Laboratory Tests Past 24 Hrs WBC 9.2 RBC 4.05 L Hgb 12.0 L Hct 36.1 L MCV 89.1 MCH 29.6 MCHC 33.2 Assessment/Plan All Active Problems (Last Updated 12/12/17 @ 03:25 by Alexandr Olmstead DO) Hemoptysis (Acute) Lung mass (Acute) Pneumonia (Acute) RECOMMENDATIONS 1. Supplemental oxygen as needed 2. Encourage incentive spirometer and Acapella 3. Increase activity as tolerated 4. Continue bronchodilators, antibiotics, mucolytic 5. Patient will be scheduled as outpatient for EBUS 5. Patient can follow-up in the pulmonary clinic after his procedure at which time he will need pulmonary function tests to establish baseline pulmonary function IMPRESSIONS 1. Right middle lobe lung mass with hemoptysis and subsequent obstructive pneumonia Concerning for malignancy. Patient does have scant smoking history of [id number]. He was in the ED with similar symptoms including hemoptysis in May 2017. Concern for obstructing mass in the right middle lobe. Explanation given on bronchoscopy versus EBUS, patient would like to proceed with outpatient testing via EBUS. The patient also likely has an element of COPD given his smoking history. He has never required any inhalers with the exception of 3 years ago using albuterol briefly. Denies any dyspnea on exertion except with the last 2 episodes of obstructive pneumonia. Pulmonary testing can be pursued after procedure. 2. History of tobacco abuse in remission/hyperlipidemia/hypertension Complicates care, management, recovery, and prognosis. Encouraged ongoing smoking cessation. Blood pressures have normalized since arrival. Continue home medications as indicated. Thank you for the opportunity to participate in this patient's care, please do not hesitate contact us with any further questions or concerns. This note was generated with [employer] dictation software. It may contain incorrect words, spelling, and punctuation that were not noted in checking the note before signing. 12/12/17 1124 <Electronically signed by Sonja PALACIOS> Date Sonja PALACIOS Cosigner Signature (if applicable): Date CC: Ryan Richey MD; Semaj Page MD Signed CBC W/DIFF, AUTOMATED Collected: 12/12/2017 Status: F Source: [place] 6:24 AM [facility] REPOSITORY TYPE CODE TESTS RESULT OUT OF RANGE REFERENCE UNITS LAB L100.1000 4.4-11.0 K/mm3 Normal WBC 9.2 LAB L100.1200 4.6-6.2 M/mm3 Low RBC 4.05 LAB L100.1300 13.0-16.5 g/dl Low HGB 12.0 LAB L100.1400 40-54 % Low HCT 36.1 LAB L100.1500 80-94 fL Normal MCV 89.1 LAB L100.1600 27.0-32.0 pg Normal MCH 29.6 LAB L100.1700 32-36 g/gl Normal MCHC 33.2 LAB L100.1810 11.6-14.6 % Normal RDW CV 12.4 LAB L100.1820 35.1-43.9 fl Normal RDW SD 39.8 LAB L100.1900 150-450 K/mm3 Normal PLT 251 LAB L100.2000 6.2-12.0 fl Normal MPV 9.1 LAB L100.2100 47-70 % High NEUT% 74.7 LAB L100.2200 19-41 % Low LY% 17.5 LAB L100.2300 0-10 % Normal MONO% 7.0 LAB L100.2400 0-5 % Normal EO% 0.5 LAB L100.2500 0-1 % Normal BASO% 0.2 LAB L100.2550 0.0-0.9 % Normal IM GRAN % 0.100 Result Comment: IG% - Immature Granulocytes (promyelocytes, myelocytes and metamyelocytes) > 1% indicates that a LEFT SHIFT is Present. LAB L100.2620 2.0-7.7 X10 3/uL Normal Absolute Neut 6.9 LAB L100.2720 0.83-4.51 X10 3/ul Normal Absolute Lymph 1.61 Performed By: #### L100.0100 #### [facility] [address] [place], [address] BASIC METABOLIC Collected: 12/12/2017 Status: F Source: [place] PROFILE ([facility]) 6:24 AM [facility] REPOSITORY TYPE CODE TESTS RESULT OUT OF RANGE REFERENCE UNITS LAB L501.0100 74-106 mg/dL Normal GLU 103 Result Comment: Fasting Glucose result from 100 to 125 mg/dL suggests IMPAIRED HOMEOSTASIS per A.D.A. criteria. Please note revised GLUCOSE reference range effective 2017. LAB L501.1000 7-18 mg/dL High BUN 19 LAB L501.1100 0.70-1.30 mg/dL Normal CREAT,SERUM 1.11 Result Comment: The validity of the calculated GFR AND GFRAA in patients over 70 years has not been determined. Clinical correlation is essential. LAB L501.1110 >60 mL/min Normal EST GFR 70 Result Comment: Non- GFR Calc LAB L501.1115 >60 mL/min Normal EST GFR - AA 85 Result Comment: GFR Calc LAB L501.1255 ml/min Normal Estimated CRCL 64.58 LAB L501.1300 10-20 RATIO Normal BUN/CRE 17.1 LAB L501.2200 8.5-10 mg/dL Low .1 CA 8.4 LAB L501.5300 136-14 mmol/L Normal 5 NA 139 LAB L501.5600 3.5-5. mmol/L Normal 1 K 3.7 LAB L501.5900 98-107 mmol/L Normal CL 100 LAB L501.6100 21.0-3 mmol/L Normal 2.0 CO2 29.0 LAB L501.6200 5-15 Normal GAP 10 Performed By: #### L500.2500 #### [facility] [address] [place], [place], [address] Observed: 12/12/2017 Status: F Source: [place] LEGIONELLA ANTIGEN 6:08 AM [facility] URINE REPOSITORY Legionella, UR Legionella Antigen result interpretation: Negative Presumptive negative for Legionella pneumophila serogroup 1 antigen in urine, suggesting no recent or current infection. Legionella Ag, Urine Negative (See interpretation below) Performed By: #### M300.4500 #### [facility] [address] [place], [address] STREP Observed: 12/12/2017 Status: F Source: [place] PNEUMONIAE ANTIG(UR,CSF) 6:08 AM [facility] REPOSITORY S pneumo Ag URINE INTERPRETATION Negative Urine Presumptive negative for pneumococcal pneumonia, suggesting no current or recent pneumococcal infection. Infection due to S pneumoniae cannot be ruled out since the antigen present in the sample may be below the detection limit of the test. Strep pneumo Test Negative URINE (See interpretation below) Performed By: #### M300.4600 #### [facility] [address] [place], [address] HISTORY AND PHYSICAL Observed: 12/12/2017 Status: F Source: [place] EXAM 3:29 AM [facility] REPOSITORY [facility] Medical Records Department [address] [place] [address] History and Physical 12/12/17 0324 MR#: [id number] Acct: [id number] Name: ANGEL LUIS GAUTAM Rep #: [id number] : 1950 67 From: Alexandr Olmstead DO PCP: Semaj Page MD Status: ADM IN Y Location: [facility] PP459-2 Problem List (1) Hemoptysis Status: Acute (2) Lung mass Status: Acute (3) Pneumonia Status: Acute History of Present Illness Date of Admission: 12/12/17 Chief Complaint: hemoptysis The patient is a 67 year old M is been his normal state of health but began coughing up blood on the . Patient has coughed up blood before that stopped spontaneously. Patient sought attention in the emergency room and had a CAT scan that showed right middle lobe was obstructed with a possible mass. Patient received antibiotics and patient is being self-limited to have further evaluation of the lung mass. [] Past Medical History Medical History: Medical History (Last Updated 12/12/17 @ 03:25 by Alexandr Olmstead DO) Hyperlipidemia E78.5 Hypertension I10 Allergies No Known Allergies Allergy (Verified 12/11/17 20:57) Home Medications: Ambulatory Orders Medication Instructions Recorded Hydrochlorothiazide [Hctz] 25 mg PO DAILY 06/16/17 Metoprolol Tartrate [Lopressor 50 mg PO DAILY 06/16/17 Smoking Status: Former smoker Tobacco Use: Non-smoker Alcohol: None Drugs: None - *Family History Maternal History Items: - - no malignancy Review of Systems Constitutional: Denies: Chills, Fever, Weight Change Eyes: Denies: Blurred vision, Double vision HEENT: Denies: Head Aches, Sinus Congestion, Sinus Drainage Cardiovascular: Denies: Chest Pain, Palpitations Respiratory: Reports: Cough, Hemoptysis, Sputum production Gastrointestinal: Denies: Abdominal Pain, Nausea, Vomiting Genitourinary: Denies: Dysuria Musculoskeletal: Denies: Joint Pain, Joint Tenderness Skin: Denies: Rash, Wounds Neurological: Denies: Numbness, Tingling, Focal weakness Psychiatric: Denies: Anxiety, Depression Hematologic/ Lymphatic: Denies: Easy Bruising, Easy Bleeding, Hx of blood clot Comment: Otherwise all review systems are negative except for as mentioned above in the HPI and review of systems. VTE Information - Inpt Only VTE Present on Admission: No VTE Mechan Device Prophylaxis: SCD's VTE Pharm Prophylaxis ordered?: No Reason prophylaxis not ordered:: Medical Contraindication Patient Problems: Active and Suspected Problems Hemoptysis (Acute) Lung mass (Acute) Pneumonia (Acute) - Physical Exam General: Alert, Cooperative, No apparent distress HEENT: Atraumatic, Normocephalic Neck: No Nodes, Thyroid Normal Size and Texture Lungs: Clear to auscultation, Normal air movement, No rhonchi, No wheeze Cardiovascular: Regular rate, Regular Rhythm, Normal S1, Normal S2 Abdomen: Bowel Sounds Present, Soft, Non Tender, Non-Distended, No Hepato-splenomegaly Extremities: No edema, No Calf Tenderness Skin: No rashes, No breakdown Psych/Mental Status: Normal Affect, Appropriate Vital Signs Temp Pulse Resp BP Pulse Ox 36.9 C 73 21 H 115/59 L 95 12/11/17 20:57 12/12/17 02:56 12/12/17 02:56 12/12/17 02:56 12/12/17 02:56 Assessment/Plan All Active Problems Hemoptysis (Acute) Lung mass (Acute) Pneumonia (Acute) 1. Hemoptysis * Likely due to the lung mass or pneumonia * Monitor 2. Lung mass * Consult pulmonology for input and see if that may be amenable to a bronchoscopy or not. * If so then patient would have a biopsy and patient told that he would need to follow-up with oncology after the biopsy results are known. 3. Pneumonia * Potentially pneumococcal but this may be just postobstructive infiltrate due to the lung mass * Patient will be on empiric azithromycin and Rocephin 4. DVT prophylaxis with SCDs. Chemical prophylaxis contraindicated in light of hemoptysis. Code Visit Inpatient E AND M: [id number] Init Hosp L2 12/12/17 0329 <Electronically signed by Alexandr Olmstead DO> Date Alexandr Olmstead DO [facility] Signature: Date (if applicable) CC: Alexandr Olmstead DO; Semaj Page MD Signed EMERGENCY DEPARTMENT Observed: 12/12/2017 Status: F Source: [place] SUMMARY 3:16 AM [facility] REPOSITORY [facility] Medical Records Department [address] [place] [address] Emergency Department Summary 12/11/17 2225 MR#: [id number] Acct: [id number] Name: ANGEL LUIS GAUTAM Rep #: [id number] : 1950 67 From: Diane Layton MD PCP: Semaj Page MD Status: ADM IN - ER Visit Summary Date of Service: 12/11/17 Chief Complaint: Dyspnea History of Present Illness: The patient is a 67 M who presents for shortness of breath and now coughing up blood-tinged mucus. Patient states he had similar symptoms last May, and was diagnosed with pneumonia. He was discharged home on Levaquin and had improvement in his symptoms, however symptoms returned approximately 2 days after completion of the antibiotics. He states he never completely felt well again. He is seen his doctor twice for these complaints but has had no further antibiotic treatments. Patient states 2 days ago his symptoms began to worsen, and he had an increase in bloody mucousy sputum tonight. He endorses the cough, chest congestion, a feeling like there is loose mucus in his throat that he cannot cough up. Denies fever or chest pain. Does have sensation of postnasal drainage. He is not on any blood thinners. Former smoker. No diagnosed asthma or COPD. No coronary artery disease. Medical history remarkable for hypertension and hypercholesterolemia. Physical Examination: Vital signs: afebrile, hemodynamically stable, no hypoxia on room air General: well nourished, well developed, in no distress Skin: warm, dry, no rash, no pallor HEENT: normocephalic and atraumatic; PERRL, EOMI, moist mucous membranes Cardiovascular: regular rate and rhythm without murmurs, no peripheral edema, 2+ pulses all distal extremities Respiratory: No increased work of breathing, lungs show diffuse mild wheezing, rhonchi noted in the right mena Abdominal: Abdomen is soft, nontender with normoactive bowel sounds, no guarding or rebound, no masses MSK: Moves all extremities, no deformities, normal strength Neuro: Awake and alert, oriented 4. No facial droop, sensation and motor function intact and symmetric Test Results: Abnormal Lab Results Clinical Impression(s) from Imaging Studies Chest X-Ray 12/11/17 21:05 IMPRESSION: Increasing right middle lobe consolidation Electronically Signed: Nikolay Costa MD at 21:31 EDT , Service support , Chest CT 12/11/17 22:17 IMPRESSION: 1. Obstructing mass which encompasses the right middle lobe bronchus with associated complete atelectasis of the right middle lobe. 2. Simple appearing left upper renal pole cyst. Electronically Signed: Jed Martinez MD at 0:11 EDT Tel , Service support , Emergency Department Course and Treatment: Patient presents for worsening of his shortness of breath, now with coughing up bloody mucus again, similar to his symptoms last May. Patient has wheezing all lung mena, and thus was given a series of breathing treatments, with subjective improvement in his respiratory effort. X-ray was performed that showed right middle lobe infiltrate, worse when compared to the x-ray from May. Because patient has the infiltrate in the same location, and he stated his symptoms never resolved, a CT of the chest was performed to look for any further pathology other than pneumonia. In the meantime patient was given Rocephin and azithromycin for suspected pneumonia. Labs showed no leukocytosis, no electrolyte derangements, troponin negative. Lactate within normal limits. CT showed an obstructing mass in the right lung, encompassing the right middle lobe bronchus, resulting in complete atelectasis of the right middle lobe. This is very suspicious for malignancy. Patient was discussed with the hospitalist, who will admit the patient for further workup, anticipating bronchoscopy with biopsy for further characterization of the mass. Pulmonology is currently on page for consultation on this patient. Plan was discussed with the patient, and patient was amenable to admission. Treatment Plan: [] Disposition: [] Impression: New lung mass with right middle lobe collapse, hemoptysis This note was generated with [employer] dictation software. It may contain incorrect words, spelling, and punctuation that were not noted in review of the chart prior to signing ED Disposition - Plan for ED Patient: Chief Complaint: Shortness of Breath Referrals: Semaj Page MD [Primary Care Provider] - What to do if you have Problems For any increased pain, shortness of breath, bleeding, nausea or vomiting, chest pain, or any unexpected problems, contact your Primary Care Provider. Call [facility] ([phone]) or report to the closest Emergency Room. Call 911 if necessary. 12/12/17315 <Electronically signed by Diane Layton MD> Date Diane Layton MD Cosigner Signature (If Indicated): Date CC: Semaj Page MD Observed: 12/11/2017 Status: F Source: [place] CULTURE, BLOOD (WB) 10:57 PM [facility] REPOSITORY BC No growth in 5 days. Performed By: #### M200.1000 #### [facility] [address] [place], [place], [address] CHEST WITH CONTRAST Observed: 12/11/2017 Status: F Source: [place] 10:18 PM [facility] REPOSITORY [facility] Imaging Services [address] [place] [address] Chest WITH Contrast MR#: [id number] Acct: [id number] Name: ANGEL LUIS GAUTAM Rep #: [id number] : 1950 M 67 From: Jed Martinez MD PCP: Semaj Page MD Status: REG ER Study: Chest WITH Contrast Date of Exam: 12/11/17 Exam# [id number] Ordering Dr: Diane Layton MD STUDY: CT CHEST WITH CONTRAST REASON FOR EXAM: Male, 67 years old. Wheezing and shortness of breath. Hemoptysis RADIATION DOSAGE (If Supplied By Facility): CTDIvol = ( 59.40 ) mGy, DLP = ( 803.39 ) mGycm TECHNIQUE: Transaxial imaging was performed following intravenous administration of 100ML ml of Isovue 300 contrast material. Individualized dose optimization techniques were used for this CT. COMPARISON: None. FINDINGS: There is complete atelectasis of the right middle lobe. There is an obstructing mass which encompasses the right middle lobe bronchus measuring approximately 3.4 x 3.0 cm. No pleural effusion or pneumothorax. Normal heart and pericardium. Shotty mediastinal lymph nodes are noted. Normal hilar regions. Normal enhanced pulmonary arteries. Normal aorta arch and descending thoracic aorta. There are multi-level degenerative changes of the thoracic spine. There are hypoattenuated lesions in the left upper renal pole. CT/Chest WITH Contrast IMPRESSION: 1. Obstructing mass which encompasses the right middle lobe bronchus with associated complete atelectasis of the right middle lobe. 2. Simple appearing left upper renal pole cyst. Electronically Signed: Jed Martinez MD at 0:11 EDT Tel , Service support , CC: Semaj Page MD; Diane Layton MD Rn Unit Manager: Signed CHEST PA AND LATERAL Observed: 12/11/2017 Status: F Source: [place] 9:01 PM [facility] REPOSITORY [facility] [place] [address] Chest PA and Lateral MR#: [id number] Acct: [id number] Name: ANGEL LUIS GAUTAM Rep #: [id number] : 1950 M 67 From: Nikolay Costa MD PCP: Semaj Page MD Status: PRE ER Study: Chest PA and Lateral Date of Exam: 12/11/17 Exam# [id number] Ordering Dr: Provider, Ed P. STUDY: X-RAY CHEST REASON FOR EXAM: Male, 67 years old. Hemoptysis and pneumonia TECHNIQUE: Frontal and lateral views of the chest. COMPARISON: June 16, 2017 FINDINGS: Increasing right middle lobe consolidation. Lungs are otherwise clear. There is no demonstrated pleural abnormality. Normal size heart. Normal mediastinum and mercedes. Normal visualized pulmonary arteries. Normal visualized aortic arch and descending thoracic aorta. Normal visualized thoracic spine. Normal visualized ribs, clavicles, and shoulders. There is no demonstrated abnormality of the visualized soft tissue structures of the upper abdomen. RAD/Chest PA and Lateral IMPRESSION: Increasing right middle lobe consolidation Electronically Signed: Nikolay Costa MD at 21:31 EDT , Service support , CC: ED PHYSICIAN PROVIDER; Semaj Page MD Rn Unit Manager: Signed CBC W/DIFF, AUTOMATED Collected: 12/11/2017 Status: F Source: [place] 10:28 AM [facility] REPOSITORY TYPE CODE TESTS RESULT OUT OF RANGE REFERENCE UNITS LAB L100.1000 4.4-11.0 K/mm3 Normal WBC 9.0 LAB L100.1200 4.6-6.2 M/mm3 Low RBC 4.45 LAB L100.1300 13.0-16.5 g/dl Normal HGB 13.0 LAB L100.1400 40-54 % Low HCT 39.4 LAB L100.1500 80-94 fL Normal MCV 88.5 LAB L100.1600 27.0-32.0 pg Normal MCH 29.2 LAB L100.1700 32-36 g/gl Normal MCHC 33.0 LAB L100.1810 11.6-14.6 % Normal RDW CV 12.5 LAB L100.1820 35.1-43.9 fl Normal RDW SD 40.1 LAB L100.1900 150-450 K/mm3 Normal PLT 256 LAB L100.2000 6.2-12.0 fl Normal MPV 8.9 LAB L100.2100 47-70 % Normal NEUT% 64.5 LAB L100.2200 19-41 % Normal LY% 26.1 LAB L100.2300 0-10 % Normal MONO% 6.9 LAB L100.2400 0-5 % Normal EO% 2.1 LAB L100.2500 0-1 % Normal BASO% 0.2 LAB L100.2550 0.0-0.9 % Normal IM GRAN % 0.200 Result Comment: IG% - Immature Granulocytes (promyelocytes, myelocytes and metamyelocytes) > 1% indicates that a LEFT SHIFT is Present. LAB L100.2620 2.0-7.7 X10 3/uL Normal Absolute Neut 5.8 LAB L100.2720 0.83-4.51 X10 3/ul Normal Absolute Lymph 2.36 Performed By: #### L100.0100 #### [facility] [address] [place], [address] BASIC METABOLIC Collected: 12/11/2017 Status: F Source: [place] PROFILE ([facility]) 10:28 AM [facility] REPOSITORY TYPE CODE TESTS RESULT OUT OF RANGE REFERENCE UNITS LAB L501.0100 74-106 mg/dL Normal GLU 105 Result Comment: Fasting Glucose result from 100 to 125 mg/dL suggests IMPAIRED HOMEOSTASIS per A.D.A. criteria. Please note revised GLUCOSE reference range effective 2017. LAB L501.1000 7-18 mg/dL High BUN 20 LAB L501.1100 0.70-1.30 mg/dL Normal CREAT,SERUM 1.30 Result Comment: The validity of the calculated GFR AND GFRAA in patients over 70 years has not been determined. Clinical correlation is essential. LAB L501.1110 >60 mL/min Low EST GFR 59 Result Comment: Non- GFR Calc LAB L501.1115 >60 mL/min Normal EST GFR - AA 71 Result Comment: GFR Calc LAB L501.1255 ml/min Normal Estimated CRCL 55.14 LAB L501.1300 10-20 RATIO Normal BUN/CRE 15.4 LAB L501.2200 8.5-10 mg/dL Normal .1 CA 9.1 LAB L501.5300 136-14 mmol/L Normal 5 NA 136 LAB L501.5600 3.5-5. mmol/L Normal 1 K 3.9 LAB L501.5900 98-107 mmol/L Normal CL 99 LAB L501.6100 21.0-3 mmol/L Normal 2.0 CO2 32.0 LAB L501.6200 5-15 Normal GAP 5 Performed By: #### L500.2500, L501.4010 #### [facility] [address] [place], [address] TROPONIN-I Collected: 12/11/2017 Status: F Source: [place] 10:28 AM [facility] REPOSITORY TYPE CODE TESTS RESULT OUT OF RANGE REFERENCE UNITS LAB L501.4010 <0.045 ng/mL Normal < 0.015 TROPONIN-I Result Comment: TROPONIN-I EXPECTED VALUES <0.045 Negative 0.045 - 0.590 Consistent with Cardiac Damage > OR = 0.600 Critical Value Not every elevated troponin is indicative of DE. These values should be used with clinical judgement in examining the patient's clinical picture for diagnosis. To establish a diagnosis of DE versus myocardial injury, there must be a demonstrated rise and/or fall in the troponin values, in addition to ischemic symptoms, EKG changes, new regional wall motion abnormality, and/or angiographical evidence. PLEASE NOTE: REFERENCE RANGES EDITED 17 Performed By: #### L500.2500, L501.4010 #### [facility] [address] [place], [address] LACTIC ACID Collected: 12/11/2017 Status: F Source: [place] 10:28 AM [facility] REPOSITORY Order Comment: Yes/No query for Sepsis Lactate Rule Y TYPE CODE TESTS RESULT OUT OF RANGE REFERENCE UNITS LAB L503.6005 0.4-2.0 mmol/L Normal LACTIC ACID 1.1 Performed By: #### L503.6005 #### [facility] [address] [place], [address] Observed: 12/11/2017 Status: F Source: [place] CULTURE, BLOOD (WB) 10:28 AM [facility] REPOSITORY BC No growth in 5 days. Performed By: #### M200.1000 #### [facility] [address] [place], [address] FECAL OCCULT BLD Collected: 08/28/2017 Status: F Source: [facility] 1:00 PM [facility] REPOSITORY TYPE CODE TESTS RESULT OUT OF REFERENCE UNITS RANGE LAB IFO Negative Immuno Negative FOB Result Comment: This test was developed and its performance characteristics determined by [facility]'s [facility] [place] ([facility]). It has not been cleared or approved by the FDA. -[facility] is regulated under CLIA as qualified to perform high-complexity testing. This test is used for clinical purposes. It should not be regarded as investigational or for research. Performed By: #### IFOBT #### [facility] [address] [place], [place] [address] PROGRESS Observed: 08/01/2017 Status: COMPLETED Source: [place] 10:16 AM [facility] REPOSITORY HNO ID: [id number] Author: Semaj Page Service: (none) Author Type: Physician Type: Progress Notes Filed: 08/01/2017 12:50 PM Note Text: Medicare Yearly Visit Medical B eligibilty date 11/30/2015 Date of last exam NA PAST MEDICAL HISTORY Diagnosis Date - COPD, mild (HCC) 10/26/2005 - Depression 01/19/2011 - Essential hypertension 03/31/2015 - Ex-smoker 10/26/2005 Quit 2011. 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 Gage: Left upper back, right upper back. 10/2016 Frontal scalp PAST SURGICAL HISTORY Procedure Laterality Date - EXC SKIN MALIG >4CM REMAINDR BODY 03/14/07 - FECAL OCCULT BLOOD TEST 07/31/2016 negative - INT REPAIR SCALP,NEC,TRUNK 2.6-7.5CM 03/14/07 Review of patient's allergies indicates no known allergies. Medications reviewed: Yes FAMILY HISTORY Problem Relation Age of Onset - Hypertension Father - Heart Father SOCIAL HISTORY: Social History Marital status: Spouse name: Years of education: Number of children: Social History Main Topics Smoking status: Former Smoker Packs/day: 0.50 Years: 35.00 Types: Cigarettes Quit date: 03/29/2012 Smokeless status: Never Used Alcohol use: Yes Comment: occasionally Drug use: No Angel Luis works out regularly 3 times per week with walking. He watches his diet for sodium, low fat and low cholesterol all of the time. List of current specialists seen: Dr. Gage End of Live Planning discussed including patients advanced directive wishes: Yes I am willing to follow Angel Luis's advanced directives. Depression screen He in the past two weeks denies having felt down, depressed, hopeless or with little interest or pleasure in doing things. Functional Ability/Safety Screen 1. Was the patient's timed Up and Go test unsteady or longer than 30 seconds? No 2. Does the patient need help with the phone, transportation, shopping,preparing meals, housework, laundry, medications or managing money? No 3. Does your home have rugs in the hallway, lack of grab bars in the bathroom (y), lack of handrails on the stairs(Y) or have poor lighting? No Hearing Evaluation: hard of hearing PHYSICAL EXAM BP 124/78 (BP Site: Right Arm, BP Position: Sitting, BP Cuff Size: Large Adult) Pulse 76 Resp 14 Ht 172.7 cm (5' 8) Wt 100.2 kg (221 lb) BMI 33.6 kg/m2 Alert and oriented X 3: YES Body mass index is 33.6 kg/(m2). Seeing optho See below ASSESSMENT/PLAN: 66 year old male The following prevention plan was discussed during the office visit and provided to the patient: See below Semaj Page MD Chief Complaint Patient presents with: Physical: 6 months HPI Angel Luis Gautam is a 66 year old male who presents here today for extensive exam. Patient with Hx as reviewed and documented below. Seeing Dr. Gage routinely for skin checks Past medical history, appointments, medications, allergies reviewed. Previous Medical History PAST MEDICAL HISTORY Diagnosis Date - COPD, mild (HCC) 10/26/2005 - Depression 01/19/2011 - Essential hypertension 03/31/2015 - Ex-smoker 10/26/2005 Quit 2011. 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 Gage: Left upper back, right upper back. 10/2016 Frontal scalp Previous Surgical History PAST SURGICAL HISTORY Procedure Laterality Date - EXC SKIN MALIG >4CM REMAINDR BODY 03/14/07 - FECAL OCCULT BLOOD TEST 07/31/2016 negative - INT REPAIR SCALP,NEC,TRUNK 2.6-7.5CM 03/14/07 Family History FAMILY HISTORY Problem Relation Age of Onset - Hypertension Father - Heart Father Patient Allergies ALLERGIES No Known Allergies Current Medications Current Outpatient Prescriptions on File Prior to Visit: simvastatin (ZOCOR) 40 mg tablet Take 1 tablet by mouth daily at bedtime. metoprolol tartrate, short acting, (LOPRESSOR) 50 mg tablet Take 1 tablet by mouth twice daily. hydroCHLOROthiazide (HYDRODIURIL, ESIDRIX) 25 mg tablet Take 1 tablet by mouth once daily. No current facility-administered medications on file prior to visit. Social History Social History Marital status: Spouse name: Years of education: Number of children: Social History Main Topics Smoking status: Former Smoker Packs/day: 0.50 Years: 35.00 Types: Cigarettes Quit date: 03/29/2012 Smokeless status: Never Used Alcohol use: Yes Comment: occasionally Drug use: No Review of Symptoms REVIEW OF SYSTEMS GENERAL: No weight loss, malaise or fevers HEENT: Negative for frequent or significant headaches, significant change in vision, significant vision problems, significant ear problems or hearing loss, nasal discharge, or nose bleeds, sore throat, difficulty swallowing, mouth lesions, hoarseness NECK: Negative for lumps, goiter, pain and significant neck swelling RESPIRATORY: Negative for cough, hemoptysis, wheezing, COPD, dyspnea or shortness of breath CARDIOVASCULAR: Negative for chest pain, leg swelling, hypertension, CHF or palpitations GI: No nausea, vomiting, or diarrhea, No heartburn or reflux symptoms and no blood : No history of dysuria, hesitancy or blood MUSCULOSKELETAL: Negative for new or changes in typical joint pain or swelling, back pain or muscle pain SKIN: Negative for lesions, rash, and itching PSYCH: Negative for sleep disturbance, mood disorder and recent psychosocial stressors HEMATOLOGY/LYMPHOLOGY: Negative for prolonged bleeding, bruising easily or swollen nodes ENDOCRINE: Negative for cold or heat intolerance, polyuria, polydipsia and goiter NEURO: No history of headaches, syncope, paralysis, seizures or tremors EXAM: BP 124/78 (BP Site: Right Arm, BP Position: Sitting, BP Cuff Size: Large Adult) Pulse 76 Resp 14 Ht 172.7 cm (5' 8) Wt 100.2 kg (221 lb) BMI 33.6 kg/m2 General Appearance: Well appearing, alert, in no acute distress, well-hydrated, well nourished.. Skin: Skin color, texture, turgor normal, no suspicious rashes or lesions. Head: Normocephalic, no masses, lesions, tenderness or abnormalities. Eyes: Anicteric sclera. Pupils are equally round and reactive to light. Extraocular movements are intact. . Ears: External ears normal, canals clear. Nose/Sinuses: Nares normal, septum midline, mucosa normal, no drainage or sinus tenderness. Oropharynx: Lips, mucosa, and tongue normal, teeth and gums normal, oropharynx normal. Neck: Supple, no adenopathy; thyroid symmetric, normal size, no bruits. Lungs: Lungs clear to auscultation. No wheezing, rhonchi, rales. Heart: RRR without murmur, gallop, or rubs. No ectopy. Abdomen: Normal abdominal exam, Abdomen soft, non-tender. Bowel sounds normal. No masses, organomegaly. Extremities: No deformities, edema, skin discoloration,. Musculoskeletal: Spine range of motion normal. Muscular strength intact, No joint swelling, deformity, or tenderness. Peripheral Pulses: Normal. Neurologic: Gait normal. Reflexes normal and symmetric. Sensation to light touch and crainal nerves 2-12 intact.. Genitalia: Normal, Penis normal. No urethral discharge. Scrotum normal to palpation. No hernia. circumcised Rectal: Normal exam. Prostate enlarged but firm smooth capsule Health Maintenance List HEPATITIS C SCREENING due on 1994 FECAL OCCULT BLOOD due on 07/30/2017 TETANUS due on 12/25/2019 DIABETES SCREEN due on 02/15/2020 LIPID SCREEN due on 07/25/2022 PROSTATE CANCER SCREENING DISCUSSION Completed ADULT PREVNAR-13 Completed INFLUENZA Completed PNEUMOVAX AGE 65 AND OVER WITH 5YR LOOKBACK Completed Data reviewed Component Latest Ref Rng AND Units 07/19/2016 01/15/2017 02/14/2017 07/25/2017 Protein, Total 6.3 - 8.0 g/dL 7.2 Albumin 3.9 - 4.9 g/dL 4.4 Calcium 8.5 - 10.2 mg/dL 9.1 Bilirubin, Total 0.2 - 1.3 mg/dL 0.7 Alkaline Phosphatase 36 - 108 U/L 68 AST 14 - 40 U/L 20 Glucose 74 - 99 mg/dL 73 (L) BUN 9 - 24 mg/dL 17 Creatinine 0.73 - 1.22 mg/dL 1.29 (H) Sodium 136 - 144 mmol/L 137 Potassium 3.7 - 5.1 mmol/L 4.3 Chloride 97 - 105 mmol/L 95 (L) CO2 22 - 30 mmol/L 27 Anion Gap 9 - 18 mmol/L 15 ALT 10 - 54 U/L 17 eGFR- >60 eGFR-All Other Races . 56 Color Yellow Yellow Clarity Clear Clear Glucose, Urine Negative mg/dL Negative Bilirubin, Urine Negative Negative Ketones, Urine Negative Negative Specific [place], Ur 1.005 - 1.030 1.017 Hemoglobin/Blood,Ur Negative 1+ (A) pH, Urine 4.5 - 8.0 5.0 Protein, Urine Negative mg/dL Negative Urobilinogen Normal Normal Nitrites Negative Negative Leukest Negative Negative Comments SEE COMMENT Urine Fitz Comment SEE COMMENT WBC, Urine 0 - 5 /HPF 0-5 RBC, Urine 0 - 3 /HPF 0-3 Cast 0 /LPF SEE COMMENT (A) Triglyceride <150 mg/dL 168 (H) 294 (H) Cholesterol, Total <200 mg/dL 176 165 HDL Cholesterol >39 mg/dL 44 (L) 44 VLDL Cholesterol <30 mg/dL 34 59 (H) LDL Cholesterol <100 mg/dL 98 62 Fasting Time hrs 10 10 TC:HDL Ratio <5.10 4.00 3.75 LDL:HDL Ratio <2.54 2.23 1.41 Non HDL Cholesterol <130 mg/dL 132 121 PSA 0.00 - 2.59 ng/mL 1.38 1.57 A/P ASSESSMENT/PLAN: 1. Medicare annual wellness visit, subsequent - ICD9: V70.0, ICD10: Z00.00 (primary diagnosis) - Completed Digital Rectal exam - Recommended regular aerobic exercise. - Follow up for annual exam in one year. 2. Need for vaccination - ICD9: V05.9, ICD10: Z23 - PNEUMOCOCCAL-13 VACCINE PCV-13 given 3. Mixed hyperlipidemia - ICD9: 272.2, ICD10: E78.2 - suboptimal control - Encouraged following a low fat, low cholesterol diet. - Discussed the benefits of regular aerobic exercise and weight loss. - Encouraged following a low carbohydrate, healthy oil intake diet. - patient advised to start fish oil 1000 mg a day 4. Essential hypertension - ICD9: 401.9, ICD10: I10 - good control - Continue current medication(s) - Recommended regular aerobic exercise. - Recommend home blood pressure monitoring, to bring results in on next visit - Goal of BP <140/90 5. COPD, mild (HCC) - ICD9: 496, ICD10: J44.9 - clinically stable, no chanegs 6. Depression, unspecified depression type - ICD9: 311, ICD10: F32.9 - Clinically stable not needing medical treatment 7. Colon cancer screening - ICD9: V76.51, ICD10: Z12.11 Check - FECAL OCCULT BLOOD TEST 8. Skin exam, screening for cancer - ICD9: V76.43, ICD10: Z12.83 - Cont f/u with Derm F/u 6 months routine check FLP and CMP prior. Time with patient face to face was 25 min for extensive and 10 min for medicare wellness. Semaj Page MD ALLERGIES ALLERGIES DATE TYPE / CODE NAME / CODE REACTION SEVERITY SOURCE 07/24/2018 Drug No Known Unknown [facility] Allergy/416 Allergies/B77012 Hospital 040037(SNOM 0388(RXNORM) Repository ED CT) Drug NO KNOWN [facility] Class/95230 ALLERGIES [facility] 1003(SNOMED Repository CT) ENCOUNTERS ENCOUNTERS ADMIT/DISCHARGE ACCOUNT NUMBER ADMITTING ENCOUNTER LOCATION SOURCE CLASS 07/24/2018 [id number] Ambulatory BMS[facility]: [place] BMS.[facility] Repository 07/24/2018 [id number] Ambulatory [facility] ding:OMD Repository 07/18/2018 [id number] Ambulatory [facility] ding:CT Repository 07/10/2018/07/10/19 [id number] Ambulatory [address] Repository 07/10/2018/07/11/19 [id number] Ambulatory [address] Repository 07/09/2018/07/09/19 [id number] Ambulatory BMSBuilding: [place] 19 BMS.[facility] Repository 07/03/2018 [id number] Ambulatory BMSBuilding: [place] BMS.[facility] Repository 06/25/2018 [id number] Ambulatory BMSBuilding: [place] BMS.[facility] Repository 06/17/2018 [id number] Ambulatory BMSBuilding: [place] BMS.CF.[facility] Repository 06/04/2018 [id number] Ambulatory [facility] Hospital ding:RAD Repository 06/04/2018 [id number] Ambulatory BMSBuilding: [place] BMS.[facility] Repository 05/27/2018 [id number] Ambulatory BMSBuilding: [place] BMS..[facility] Repository 04/30/2018 [id number] Ambulatory BMSBuilding: [place] BMS..[facility] Repository 04/23/2018 [id number] Ambulatory BMSBuilding: [place] BMS..[facility] Repository 04/23/2018 [id number] Ambulatory BMSBuilding: [place] [facility] Repository 04/22/2018 [id number] Ambulatory BMSBuilding: [place] BMS..[facility] Repository 04/16/2018 [id number] Ambulatory BMSBuilding: [place] BMS.CF.[facility] Repository 04/15/2018 [id number] Ambulatory BMSBuilding: [place] BMS..[facility] Repository 04/09/2018 [id number] Ambulatory BMSBuilding: [place] BMS.CF.[facility] Repository 04/08/2018 [id number] Ambulatory BMSBuilding: [place] BMS..[facility] Repository 04/08/2018/04/08/20 [id number] Ambulatory [facility]: [place] [facility] Repository 04/02/2018 [id number] Ambulatory BMSBuilding: [place] BMS.CF.[facility] Repository 04/01/2018 [id number] Ambulatory BMSBuilding: [place] BMS.CF.[facility] Repository 03/26/2018 [id number] Ambulatory BMSBuilding: [place] BMS.CF.[facility] Repository 03/26/2018/03/26/20 [id number] Ambulatory BMSBuilding: [place] 18 BMS.[facility] Repository 03/26/2018 [id number] Ambulatory BMSBuilding: [place] BMS.CF[facility] Repository 03/25/2018 [id number] Ambulatory [facility] ding: Repository 03/19/2018 [id number] Ambulatory BMSBuilding: [place] [facility] Repository 03/19/2018 [id number] Ambulatory BMSBuilding: [place] [facility] Repository 03/18/2018/03/18/20 [id number] Ambulatory [address] ding:[facility] Repository 03/18/2018/03/18/20 [id number] Ambulatory BMSBuilding: [place] 18 BMS.CF.[facility] Repository 03/18/2018 [id number] Ambulatory BMSBuilding: [facility] Repository 03/17/2018 [id number] RAYSA, Inpatient Building:[facility] Repository 03/11/2018/03/11/20 [id number] Ambulatory BMSBuilding: [place] 18 BMS.[facility] Repository 03/11/2018 [id number] Ambulatory BMSBuilding: [facility] Repository 03/10/2018 [id number] Ambulatory BMSBuilding: [place] BMS.CF[facility] Repository 03/10/2018 [id number] Ambulatory BMSBuilding: [place] BMS.CF[facility] Repository 03/06/2018 [id number] Ambulatory BMSBuilding: [place] BMS.CF[facility] Repository 03/04/2018/03/04/20 [id number] Ambulatory BMSBuilding: [place] [facility] Repository 02/25/2018 [id number] Ambulatory Building:[address] Repository 02/12/2018 [id number] Ambulatory BMSBuilding: [facility] Repository 02/12/2018 [id number] Ambulatory [facility] ding:PSN Repository 02/11/2018 [id number] Ambulatory BMSBuilding: [place] [facility] Repository 02/11/2018 [id number] Ambulatory [facility] ding:PSN Repository 02/07/2018 [id number] Ambulatory BMSBuilding: [place] BMS.CF.[facility] Repository 02/05/2018 [id number] Ambulatory [facility] Repository 02/05/2018/02/08/20 [id number] Ambulatory [address] Repository 02/04/2018/02/05/20 [id number] Ambulatory [address] Repository 01/31/2018 [id number] Ambulatory [facility] ding:MRI Repository 01/27/2018 [id number] Ambulatory Building:[facility] Repository 01/24/2018 [id number] Ambulatory BMSBuilding: [place] BMS.CF.[facility] Repository 01/22/2018/01/23/20 [id number] Ambulatory BMSBuilding: [place] [facility] 01/17/2018 [id number] Ambulatory BMSBuilding: [place] [facility] Repository 01/17/2018/01/18/20 [id number] Ambulatory [address] ding:ENRoom: Repository AC10 01/14/2018 [id number] Ambulatory [facility] ding:LAB Repository 12/17/2017/12/20/19 [id number] Ambulatory [address] Repository 12/12/2017 [id number] Ays[facility] Ambulatory BMSBuilding: [place] Alexandr [facility] Repository 12/12/2017 [id number] [place] Ambulatory BMSBuilding: [place] Alexandr [facility] Repository 12/12/2017 [id number] [place] Ambulatory BMSBuilding: [place] BMS.[facility] Repository 12/12/2017/12/13/19 [id number] Jopper[place], Ambulatory [place] Xander [address] [place] [address] ding:HB2Yuiv Repository : [id number]: 1 08/28/2017/08/28/[id number] Repository 08/01/2017/08/01/19 [id number] Ambulatory [address] Repository PAYERS PAYERS ENCOUNTER GUARANTOR PAYER SUBSCRIBER SOURCE 07/24/2018 ANGEL LUIS E Primary ANGEL LUIS E [place] [id number] NUPP Insurance:HUMANA SHANKDOB: [facility]ly [facility] [place] OPolicy [id number] [id number]: (330) Number: Repository [phone] () [id number] Date:7663-72-06BE [address] [address]IG: 07/24/2018 Secondary NOT GIVENUNK [place] Insurance:SELF PAY [facility] Number: Effective Repository Date:2018-07-24 07/24/2018 ANGEL LUIS E Primary ANGEL LUIS E [place] [id number] NUPP Insurance:HUMANA SHANKDOB: Formerly [facility] [place] OPolicy [id number] [place] [id number]: (330) Number: Repository [phone] () [id number] Date:6003-43-51FG [address] [address]CC: 07/24/2018 Secondary NOT GIVENUNK [place] Insurance:SELF PAY [facility] Number: Effective Repository Date:2018-01-22 07/18/2018 ANGEL LUIS E Primary ANGEL LUIS E [place] [id number] NUPP Insurance:HUMANA SHANKDOB: [facility]ly [facility] [place] OPolicy [id number] [place]ille [id number]: (330) Number: Repository [phone] () [id number] Date:0836-27-52IQ [address] [address]ES: 07/18/2018 Secondary NOT GIVENUNK [place] Insurance:SELF PAY [facility] Number: Effective Repository Date:2018-06-17 07/09/2018 ANGEL LUIS E Primary ANGEL LUIS E [place] [id number] NUPP Insurance:HUMANA SHANKDOB: [place] PPOPolicy [id number] Hospital [address]Pfh: (330) Number: Repository [phone] () [id number] Date:1024-67-25NR [place] [address]12[address]WP: 07/09/2018 Secondary NOT GIVENUNK [place] Insurance:SELF PAY [facility] Number: Effective Repository Date:2018-07-04 07/03/2018 ANGEL LUIS E Primary ANGEL LUIS E [place] [id number] NUPP Insurance:HUMANA SHANKDOB: [facility] [place] [facility] [id number] Ville [address]Tel: (330) Number: Repository [phone] () [id number] Date:7727-64-48UU [address]4601WP: 07/03/2018 Secondary NOT GIVENUNK [place] Insurance:SELF PAY [facility] Number: Effective Repository Date:2018-07-03 06/25/2018 ANGEL LUIS E Primary ANGEL LUIS E [place] [id number] NUPP Insurance:HUMANA SHANKDOB: [facility] [place] [facility] [id number] [place] [id number]: (330) Number: Repository [phone] () [id number] Date:1219-44-56[place] [address]WP: 06/25/2018 Secondary NOT GIVENUNK [place] Insurance:SELF PAY [facility] Number: Effective Repository Date:2018-06-25 06/17/2018 ANGEL LUIS E Primary ANGEL LUIS E [place] [id number] NUPP Insurance:HUMANA SHANKDOB: [facility] [place] [facility] [facility] [id number] [place]ille [id number]: (330) Number: Repository [phone] () [id number] Date:2819-23-42[place] [address]WP: 06/17/2018 Secondary NOT GIVENUNK [place] Insurance:SELF PAY [facility] Number: Effective Repository Date:2018-06-17 06/04/2018 ANGEL LUIS E Primary ANGEL LUIS E [place] [id number] NUPP Insurance:HUMANA SHANKDOB: [facility] [place] OPolicy [id number] Hospital [address]Iec: (960) Number: Repository [phone] () [id number] Date:1920-24-74ZK [address]4601WP: 06/04/2018 Secondary NOT GIVENUNK [place] Insurance:SELF PAY [facility] Number: Effective Repository Date:2018-06-04 06/04/2018 ANGEL LUIS E Primary ANGEL LUIS E [place] [id number] NUPP Insurance:HUMANA SHANKDOB: [facility] [place] [facility] [id number] Hospital [address]1080Mvc: (330) Number: Repository [phone] () [id number] Date:3907-93-14ZY[address]4601WP: 06/04/2018 Secondary NOT GIVENUNK [place] Insurance:SELF PAY [facility] Number: Effective Repository Date:2018-06-04 05/27/2018 ANGEL LUIS E Primary ANGEL LUIS E [place] [id number] NUPP Insurance:HUMANA SHANKDOB: Formerly [facility] [place] PPOPolicy [id number] Hospital [address]Rrq: (330) Number: Repository [phone] () [id number] Date:7537-24-02RC [address] [address]SB: 05/27/2018 Secondary NOT GIVENUNK [place] Insurance:SELF PAY [facility] Number: Effective Repository Date:2018-05-27 04/30/2018 ANGEL LUIS E Primary ANGEL LUIS E [place] [id number] NUPP Insurance:HUMANA SHANKDOB: [facility] [place] [facility] [id number] Hospital [address]Oms: (330) Number: Repository [phone] () [id number] Date:9569-85-88OA [address] [address]JU: 04/30/2018 Secondary NOT GIVENUNK [place] Insurance:SELF PAY [facility] Number: Effective Repository Date:2018-04-30 04/23/2018 ANGEL LUIS E Primary ANGEL LUIS E [place] [id number] NUPP Insurance:HUMANA SHANKDOB: [facility] [place] PPOPolicy [id number] Ville [id number]: (330) Number: Repository [phone] () [id number] Date:2266-64-74[place] [address]WP: 04/23/2018 Secondary NOT GIVENUNK [place] Insurance:SELF PAY [facility] Number: Effective Repository Date:2018-04-23 04/23/2018 ANGEL LUIS E Primary ANGEL LUIS E [place] [id number] NUPP Insurance:HUMANA SHANKDOB: [facility] [place] [facility] [id number] [place]ille [id number]: (330) Number: Repository [phone] () [id number] Date:6822-34-19UXBRYAN VILLE 626[address]12[address]WP: 04/23/2018 Secondary NOT GIVENUNK [place] Insurance:SELF PAY [facility] Number: Effective Repository Date:2018-04-23 04/22/2018 ANGEL LUIS E Primary ANGEL LUIS E [place] [id number] NUPP Insurance:HUMANA SHANKDOB: [facility] [place] [facility] [id number] Hospital [address]Bvu: (330) Number: Repository [phone] () [id number] Date:6356-75-86LX[address] [address]LM: 04/22/2018 Secondary NOT GIVENUNK [place] Insurance:SELF PAY [facility] Number: Effective Repository Date:2018-04-22 04/16/2018 ANGEL LUIS E Primary ANGEL LUIS E [place] [id number] NUPP Insurance:HUMANA SHANKDOB: [facility] [place] [facility] [id number] Hospital [address]Gwz: (330) Number: Repository [phone] () [id number] Date:4201-58-05UG [place] 233[address]12[address]WP: 04/16/2018 Secondary NOT GIVENUNK [place] Insurance:SELF PAY [facility] Number: Effective Repository Date:2018-04-16 04/15/2018 ANGEL LUSI E Primary ANGEL LUIS E [place] [id number] NUPP Insurance:HUMANA SHANKDOB: [facility]ly [facility] [place] PPOPolicy [id number] Hospital [address]Tkj: (330) Number: Repository [phone] () [id number] Date:0119-61-94XM [address]4601WP: 04/15/2018 Secondary NOT GIVENUNK [place] Insurance:SELF PAY [facility] Number: Effective Repository Date:2018-04-15 04/09/2018 ANGEL LUIS E Primary ANGEL LUIS E [place] [id number] NUPP Insurance:HUMANA SHANKDOB: [place] PPOPolicy [id number] Hospital [address]Wef: (330) Number: Repository [phone] () [id number] Date:3352-18-25DO [place] 233[address]12[address]WP: 04/09/2018 Secondary NOT GIVENUNK [place] Insurance:SELF PAY [facility] Number: Effective Repository Date:2018-04-09 04/08/2018 ANGEL LUIS E Primary ANGEL LUIS E [place] [id number] NUPP Insurance:HUMANA SHANKDOB: [facility]ly [facility] [place] [facility] [id number] Hospital [address]Dqy: (330) Number: Repository [phone] () [id number] Date:1379-89-63GX [place] 233[address]12[address]WP: 04/08/2018 Secondary NOT GIVENUNK [place] Insurance:SELF PAY [facility] Number: Effective Repository Date:2018-04-08 04/08/2018 ANGEL LUIS E Primary ANGEL LUIS E [place] [id number] NUPP Insurance:HUMANA SHANKDOB: [place] PPOPolicy [id number] Hospital 868[address]Mgz: (330) Number: Repository [phone] () [id number] Date:7330-51-76AX [place] 233[address]12[address]WP: 04/08/2018 Secondary NOT GIVENUNK [place] Insurance:SELF PAY [facility] Number: Effective Repository Date:2018-04-01 04/02/2018 ANGEL LUIS E Primary ANGEL LUIS E [place] [id number] NUPP Insurance:HUMANA SHANKDOB: [facility] [place] OPolicy [id number] Hospital 210[address]Gdk: (330) Number: Repository [phone] () [id number] Date:5837-07-56TJ[address]4601WP: 04/02/2018 Secondary NOT GIVENUNK [place] Insurance:SELF PAY [facility] Number: Effective Repository Date:2018-04-02 04/01/2018 ANGEL LUIS E Primary ANGEL LUIS E [place] [id number] NUPP Insurance:HUMANA SHANKDOB: [facility] [place] OPolicy [id number] Hospital [address]Bah: (330) Number: Repository [phone] () [id number] Date:5328-77-46QQ[address] [address]BM: 04/01/2018 Secondary NOT GIVENUNK [place] Insurance:SELF PAY [facility] Number: Effective Repository Date:2018-04-01 03/26/2018 ANGEL LUIS E Primary ANGEL LUIS E [place] [id number] NUPP Insurance:HUMANA SHANKDOB: [facility] [place] OPolicy [id number] Hospital [address]Qam: (330) Number: Repository [phone] () [id number] Date:0042-53-72QD [address] [address]FL: 03/26/2018 Secondary NOT GIVENUNK [place] Insurance:SELF PAY [facility] Number: Effective Repository Date:2018-03-26 03/26/2018 ANGEL LUIS E Primary ANGEL LUIS E [place] [id number] NUPP Insurance:HUMANA SHANKDOB: [place] PPOPolicy [id number] Ville [address]Tel: (330) Number: Repository [phone] () [id number] Date:8960-11-81VB [address] [address]KX: 03/26/2018 Secondary NOT GIVENUNK [place] Insurance:SELF PAY [facility] Number: Effective Repository Date:2018-03-26 03/26/2018 ANGEL LUIS E Primary ANGEL LUIS E [place] [id number] NUPP Insurance:HUMANA SHANKDOB: [place] PPOPolicy [id number] [place] [id number]: (330) Number: Repository [phone] () [id number] Date:0833-02-88IH [address] [address]VF: 03/26/2018 Secondary NOT GIVENUNK [place] Insurance:SELF PAY [facility] Number: Effective Repository Date:2018-03-26 03/25/2018 ANGEL LUIS E Primary ANGEL LUIS E [place] [id number] NUPP Insurance:HUMANA SHANKDOB: [place] PPOPolicy [id number] Hospital [address]Uvc: (330) Number: Repository [phone] () [id number] Date:2859-88-57UH [address] [address]YC: 03/25/2018 Secondary NOT GIVENUNK [place] Insurance:SELF PAY [facility] Hospital Number: Effective Repository Date:2018-03-25 03/19/2018 ANGEL LUIS E Primary ANGEL LUIS E [place] [id number] NUPP Insurance:HUMANA SHANKDOB: [place] [facility] [id number] Hospital 24[address]Zmg: (330) Number: Repository [phone] () [id number] Date:8771-66-32TL [address] [place], [place] [address]WP: 03/19/2018 Secondary NOT GIVENUNK [place] Insurance:SELF PAY [facility] Number: Effective Repository Date:2018-03-19 03/19/2018 ANGEL LUIS E Primary ANGEL LUIS E [place] [id number] NUPP Insurance:HUMANA SHANKDOB: [place] [facility] [id number] Hospital 39[address]Nms: (330) Number: Repository [phone] () [id number] Date:7876-39-80EC [address] [address]RN: 03/19/2018 Secondary NOT GIVENUNK [place] Insurance:SELF PAY [facility] Number: Effective Repository Date:2018-03-19 03/18/2018 ANGEL LUIS E Primary ANGEL LUIS E [place] [id number] NUPP Insurance:HUMANA SHANKDOB: [place] PPOPolicy [id number] Hospital [address]Xre: (330) Number: Repository [phone] () [id number] Date:1784-99-43OE [address] [address]RQ: 03/18/2018 Secondary NOT GIVENUNK [place] Insurance:SELF PAY [facility] Number: Effective Repository Date:2018-03-11 03/18/2018 ANGEL LUIS E Primary ANGEL LUIS E [place] [id number] NUPP Insurance:HUMANA SHANKDOB: [place] [facility] [id number] Hospital [address]Jaj: (330) Number: Repository [phone] () [id number] Date:8990-20-26ZC [address] [address]JS: 03/18/2018 Secondary NOT GIVENUNK [place] Insurance:SELF PAY [facility] Number: Effective Repository Date:2018-03-18 03/18/2018 ANGEL LUIS E Primary ANGEL LUIS E [place] [id number] NUPP Insurance:HUMANA SHANKDOB: [place] OPolicy [id number] Hospital 600[address]Ggl: (330) Number: Repository [phone]) [id number] Date:2423-54-89CFBRYAN [place]ILLE 626[address]12[address]WP: 03/18/2018 Secondary NOT GIVENUNK [place] Insurance:SELF PAY [facility] Number: Effective Repository Date:2018-03-18 03/17/2018 ANGEL LUIS SHANKDOB: Primary ANGEL LUIS SHANKDOB: [facility] Insurance:MEDICARE [id number] [facility] [address]Wfk: Number: FITO [facility] [id number] [address]Wxl: (330) Repository (HP) Date:2072-08-51Eqrt [phone] () Name:CARE 03/11/2018 ANGEL LUIS Velez Primary ANGEL LUIS E [place] [id number] NUPP Insurance:HUMANA SHANKDOB: [place] [facility]olmer[facility] [id number] Hospital 270[address]Xqg: (330) Number: Repository [phone] () [id number] Date:2253-42-84LM[address] [address]FB: 03/11/2018 Secondary NOT GIVENUNK [place] Insurance:SELF PAY [facility] Number: Effective Repository Date:2018-03-06 03/11/2018 ANGEL LUIS E Primary ANGEL LUIS E [place] [id number] NUPP Insurance:HUMANA SHANKDOB: [place] OPolmercy[facility] [id number] Hospital 565[address]Wtc: (330) Number: Repository [phone] () [id number] Date:1298-18-75HH [address] [place] [address]QH: 03/11/2018 Secondary NOT GIVENUNK [place] Insurance:SELF PAY [facility] Number: Effective Repository Date:2018-03-11 03/10/2018 ANGEL LUIS E Primary ANGEL LUIS E [place] [id number] NUPP Insurance:HUMANA SHANKDOB: [place] OPolmercy[facility] [id number] [place]ille 808801Tel: (330) Number: Repository [phone] () [id number] Date:9884-18-95CK [address] [address]JJ: 03/10/2018 Secondary NOT GIVENUNK [place] Insurance:SELF PAY [facility] Number: Effective Repository Date:2018-03-10 03/10/2018 ANGEL LUIS E Primary ANGEL LUIS E [place] [id number] NUPP Insurance:HUMANA SHANKDOB: [facility] [place] PPOPolicy [id number] [place] [id number]: (330) Number: Repository [phone] () [id number] Date:2040-78-56BY[address] [address]KW: 03/10/2018 Secondary NOT GIVENUNK [place] Insurance:SELF PAY [facility] Number: Effective Repository Date:2018-03-10 03/06/2018 ANGEL LUIS E Primary ANGEL LUIS E [place] [id number] NUPP Insurance:HUMANA SHANKDOB: [facility] [place] PPOPolicy [id number] [place]ille [id number]: (330) Number: Repository [phone] () [id number] Date:6605-42-44GB [address] [address]FH: 03/06/2018 Secondary NOT GIVENUNK [place] Insurance:SELF PAY [facility] Number: Effective Repository Date:2018-03-06 03/04/2018 ANGEL LUIS E Primary ANGEL LUIS E [place] [id number] NUPP Insurance:HUMANA SHANKDOB: [place] PPOPolicy [id number] Hospital 364[address]Rgf: (330) Number: Repository [phone] () [id number] Date:9926-24-71OK [address] [address]XV: 03/04/2018 Secondary NOT GIVENUNK [place] Insurance:SELF PAY [facility] Number: Effective Repository Date:2018-02-25 02/25/2018 ANGEL LUIS SHANKDOB: Primary ANGEL LUIS SHANKDOB: [facility] Insurance:MEDICARE [id number] [employer] [facility] 7 NUPP [facility] [address]Tbj: Number: FITO [facility] [id number]: (330) Repository () Date:3294-01-87Flay [phone] () Name:CARE 02/12/2018 ANGEL LUIS E Primary ANGEL LUIS E [place] [id number] NUPP Insurance:HUMANA SHANKDOB: [place] PPOPolicy [id number] Hospital [address]Hnn: (330) Number: Repository [phone] () [id number] Date:9363-16-19HL [address] [address]WS: 02/12/2018 Secondary NOT GIVENUNK [place] Insurance:SELF PAY [facility] Number: Effective Repository Date:2018-02-12 02/12/2018 ANGEL LUIS E Primary ANGEL LUIS E [place] [id number] NUPP Insurance:HUMANA SHANKDOB: [place] OPoly [id number] Hospital 385[address]Vqa: (330) Number: Repository [phone] () [id number] Date:3779-03-18MR [address] [address]CU: 02/12/2018 Secondary NOT GIVENUNK [place] Insurance:SELF PAY [facility] Number: Effective Repository Date:2018-01-22 02/11/2018 ANGEL LUSI E Primary ANGEL LUIS E [place] [id number] NUPP Insurance:HUMANA SHANKDOB: [facility] [place] PPOPolicy [id number] Hospital [address]Hpj: (330) Number: Repository [phone] () [id number] Date:8094-26-64QJ [place] 233[address]12[address]WP: 02/11/2018 Secondary NOT GIVENUNK [place] Insurance:SELF PAY [facility] Number: Effective Repository Date:2018-02-11 02/11/2018 ANGEL LUIS E Primary ANGEL LUIS E [place] [id number] NUPP Insurance:HUMANA SHANKDOB: [facility] [place] PPOPolicy [id number] [place] [id number]: (330) Number: Repository [phone] () [id number] Date:4762-06-96KC [address]4601WP: 02/11/2018 Secondary NOT GIVENUNK [place] Insurance:SELF PAY [facility] Number: Effective Repository Date:2018-01-22 02/07/2018 ANGEL LUIS E Primary ANGEL LUIS E [place] [id number] NUPP Insurance:HUMANA SHANKDOB: [facility] [place] PPOPolicy [id number] [place] [id number]: (330) Number: Repository [phone] () [id number] Date:1023-99-23SY [address]4601WP: 02/07/2018 Secondary NOT GIVENUNK [place] Insurance:SELF PAY [facility] Number: Effective Repository Date:2018-02-07 01/31/2018 ANGEL LUIS E Primary ANGEL LUIS E [place] [id number] NUPP Insurance:HUMANA SHANKDOB: [facility] [place] PPOPolicy [id number] Ville [id number]: (330) Number: Repository [phone] () [id number] Date:7979-63-69CQ [address]4601WP: 01/31/2018 Secondary NOT GIVENUNK [place] Insurance:SELF PAY [facility] Number: Effective Repository Date:2018-01-24 01/24/2018 ANGEL LUIS E Primary ANGEL LUIS E [place] [id number] NUPP Insurance:HUMANA SHANKDOB: [facility] [place] OPolicy [id number] Hospital 76[address]Gkb: (330) Number: Repository [phone] () [id number] Date:4648-70-83NP [place] 2331612[address]WP: 01/24/2018 Secondary NOT GIVENUNK [place] Insurance:SELF PAY [facility] Number: Effective Repository Date:2018-01-24 01/22/2018 ANGEL LUIS E Primary ANGEL LUIS E [place] [id number] NUPP Insurance:HUMANA SHANKDOB: [facility] [place] [id number] [place] [id number]: (330) Number: Repository [phone] () [id number] Date:5511-23-11ICBRYAN VILLE 6269212[address]WP: 01/22/2018 Secondary NOT GIVENUNK [place] Insurance:SELF PAY [facility] Number: Effective Repository Date:2018-01-22 01/17/2018 ANGEL LUIS E Primary ANGEL LUIS E [place] [id number] NUPP Insurance:HUMANA SHANKDOB: [facility] [place] [facility] [id number] [place]ille [id number]: (330) Number: Repository [phone] () [id number] Date:2596-57-38WV [address] [address]MV: 01/17/2018 Secondary NOT GIVENUNK [place] Insurance:SELF PAY [facility] Number: Effective Repository Date:2018-01-17 01/17/2018 ANGEL LUIS E Primary ANGEL ULIS E [place] [id number] NUPP Insurance:HUMANA SHANKDOB: [facility] [id number] [place]ille [id number]: (330) Number: Repository [phone] () [id number] Date:0125-87-26VL [address]4601WP: 01/17/2018 Secondary NOT GIVENUNK [place] Insurance:SELF PAY [facility] Number: Effective Repository Date:2017-12-16 01/14/2018 ANGEL LUIS E Primary ANGEL LUIS E [place] [id number] NUPP Insurance:HUMANA SHANKDOB: [place] PPOPolicy [id number] Hospital [address]Jzp: (330) Number: Repository [phone] () [id number] Date:3967-39-50PP [address]4601WP: 01/14/2018 Secondary NOT GIVENUNK [place] Insurance:SELF PAY [facility] Number: Effective Repository Date:2018-01-14 12/12/2017 ANGEL LUIS E Primary ANGEL LUIS E [place] [id number] NUPP Insurance:HUMANA SHANKDOB: [place] PPOPolicy [id number] Hospital 8[address]Itt: (330) Number: Repository [phone] () [id number] Date:7616-23-95NF [address]4601WP: 12/12/2017 Secondary NOT GIVENUNK [place] Insurance:SELF PAY [facility] Number: Effective Repository Date:2017-12-12 12/12/2017 ANGEL LUIS E Primary ANGEL LUIS E [place] [id number] NUPP Insurance:HUMANA SHANKDOB[place] PPOP[place]icy [id number] [address]Naq: ([phone]) Number: Repository [phone] () [id number] Date:[id number] [address]WP: 12/12/2017 Secondary NOT GIVENUNK Xander Insurance:SELF PAY [facility] Number: Effective Repository Date:2017-12-12 12/12/2017 ANGEL LUIS E Primary ANGEL LUIS E [place] [id number] NUPP Insurance:HUMANA SHANKDOB[place] PPOP[place]icy [id number] [address]Hnb: (330) Number: Repository [phone] () [id number] Date:[id number] [address] [place] [id number]: 12/12/2017 Secondary NOT GIVENUNK Xander Insurance:SELF PAY [facility] Number: Effective Repository Date:2017-12-12 12/12/2017 ANGEL LUIS E Primary ANGEL LUIS E Xander [id number] NUPP Insurance:HUMANA SHANKD[place] PPOPolicy [id number] [id number]: [phone] Number: Repository [phone] () [id number] Date:[id number] [address]AX: 12/12/2017 Secondary NOT GIVENUNK Xander Insurance:SELF PAY [facility] Number: Effective Repository Date:2017-12-11
== END ==
PROVIDERS: Family Provider Family Medicine; PCP Family Medicine; Referring Provider Internal Medicine Hematology & Oncology; Visit Provider Internal Medicine Hematology & Oncology
DX: C34.2 Malignant neoplasm of middle lobe, bronchus or lung (principal); D64.9 Anemia, unspecified
CPT/HCPCS: 71260; 74160; Q9967; A4216

== ENCOUNTER → 2018-07-30 08:52 | Outpatient (CLI) | payer MEDICARE, SELFPAY ==
[2018-03-10 11:02] VITALS: BMI 29.9
[2018-07-24 11:19] VITALS: BMI 29.0
--- NOTE | 2018-07-30 08:58 | US_ITS ---
STUDY: ABDOMINAL ULTRASOUND - RIGHT UPPER QUADRANT REASON FOR VISIT: Male, 67 years old. Liver lesions TECHNIQUE: Ultrasound evaluation of the right upper quadrant was performed with real-time and static singh-scale imaging. TECHNICAL QUALITY: Adequate. COMPARISON: July 18, 2018 FINDINGS: Liver: Liver measures 14.5 cm and demonstrates heterogeneous echotexture. NO discrete mass is identified. Gallbladder: Normal distended gallbladder. The gallbladder wall measures 3 mm. There is a negative sonographic Omer's sign. There is no pericholecystic fluid. There are no gallstones. Common Bile Duct (C.B.D.): Not identified. Pancreas: Normal size of the head, body and tail of the pancreas. There is normal echogenicity of the pancreas. There is no demonstrated pancreatic mass or cyst. Right Kidney: Normal size of the right kidney. The right kidney measures 10.2 x 4.7 x 5.3 cm. Normal renal cortex. The right cortex measures 1.7 cm. There is a cyst measuring 11 mm. There is no right hydronephrosis. There is a small RIGHT pleural effusion. US/Liver IMPRESSION: NO discrete liver mass is identified. Electronically Signed: Fred Vasquez MD at 6:07 EST , Service support ,
== END ==
PROVIDERS: Family Provider Family Medicine; PCP Family Medicine; Referring Provider Internal Medicine Hematology & Oncology; Visit Provider Internal Medicine Hematology & Oncology
DX: K76.89 Other specified diseases of liver (principal)
CPT/HCPCS: 76705

== ENCOUNTER → 2018-10-29 15:20 | Outpatient (CLI) | payer MEDICARE, SELFPAY ==
[2018-03-10 11:02] VITALS: BMI 29.9
[2018-10-07 10:27] VITALS: BMI 29.2
[2018-10-21 09:54] VITALS: BMI 29.2
--- NOTE | 2018-10-29 15:21 | CT_ITS ---
STUDY: CT CHEST WITH CONTRAST REASON FOR EXAM: Male, 67 years old. Non-small cell lung cancer re-staging. Currently on immunotherapy. RADIATION DOSAGE (If Supplied By Facility): CTDIvol = ( 13.82 ) mGy, DLP = ( 1038.77 ) mGycm TECHNIQUE: Transaxial imaging was performed following intravenous administration of 100mL IV Isovue 300. Individualized dose optimization techniques were used for this CT. COMPARISON: 07/19/2018 FINDINGS: There is further decrease in size of the right middle lobe mass measured previously 4.6 x 4.6 cm, now measures 2.9 x 3.cm. There is complete atelectasis of the right middle lobe and right lower lobe. There is large right pleural effusion has increased since the previous study. Normal heart and pericardium. Normal mediastinum. Normal hilar regions. Normal enhanced pulmonary arteries. Normal aorta arch and descending thoracic aorta. There are multi-level degenerative changes and demineralization of the thoracic spine. There is no demonstrated abnormality of the visualized upper abdomen. CT/Chest WITH Contrast IMPRESSION: Complete atelectasis in the right lower lobe is new since the previous study. The right middle lobe mass has probably decreased in size since the previous study. Now measures approximately 2.9 x 3 cm on the coronal section coronal images #77. Large right pleural effusion has increased since the previous study. Electronically Signed: Dave Schaffer, at 8:02 EDT Tel , Service support ,
--- NOTE | 2018-10-29 15:21 | CT_ITS ---
STUDY: CT ABDOMEN WITH CONTRAST REASON FOR EXAM: Male, 67 years old. Non-small cell lung cancer restaging. RADIATION DOSAGE (If Supplied By Facility): CTDIvol = ( 13.82 ) mGy, DLP = ( 1038.77 ) mGycm TECHNIQUE: Transaxial images were obtained post I.V. administration of 100mL IV Isovue 300, and oral contrast. Sagittal and coronal images were reconstructed. Individualized dose optimization techniques were used for this CT. COMPARISON: July 18, 2018. FINDINGS: The limited images of the chest demonstrate a right pleural effusion associated with consolidation within the visualized right lower lobe. The visualized portions of the heart are within normal limits. There is a stable too small to characterize low-attenuation focus within the right hepatic lobe that may reflect a cyst or hemangioma. Normal gallbladder and extrahepatic biliary system. Normal spleen. Normal pancreas. Normal bilateral adrenal glands. There are stable bilateral renal cysts. Normal visualized stomach. Normal small intestine. Normal colon. There is non-visualization of the appendix. There is diffuse atherosclerotic calcification of the abdominal aorta with elongation and tortuosity, but without a demonstrated aneurysm. Normal inferior vena cava. Normal retroperitoneum. Normal abdominal wall. There are diffuse degenerative changes of the visualized lumbar spine. CT/Abdomen WITH IV Contrast IMPRESSION: Right pleural effusion associated with consolidation within the right lower lobe within the visualized lung bases. Bilateral renal cysts. Atherosclerosis. Stable too small to characterize low-attenuation focus within the liver that likely reflects a cyst or hemangioma. Electronically Signed: Lynette Fenton MD at 16:35 EDT Tel , Service support ,
== END ==
PROVIDERS: Family Provider Family Medicine; PCP Family Medicine; Referring Provider Internal Medicine Hematology & Oncology; Visit Provider Internal Medicine Hematology & Oncology
DX: C34.2 Malignant neoplasm of middle lobe, bronchus or lung (principal); Z79.899 Other long term (current) drug therapy
CPT/HCPCS: 71260; 74160; Q9967; A4216

== ENCOUNTER 2018-11-03 17:09 | Observation (INO) | payer MEDICARE, SELFPAY ==
[2018-03-10 11:02] VITALS: BMI 29.9
[2018-11-03] VITALS (10 sets, daily range): BP systolic 129–161; BP diastolic 78–93; PULSE 82–99; RESP 14–30; TEMP 37.1–38.2; O2SAT 94–99; BMI 29.3; BMI 28.7
--- NOTE | 2018-11-03 17:11 | EKG12_ITS ---
Test Reason : CP Blood Pressure : / mmHG Vent. Rate : 092 BPM Atrial Rate : 092 BPM P-R Int : 180 ms QRS Dur : 098 ms QT Int : 390 ms P-R-T Axes : 021 -68 023 degrees QTc Int : 482 ms Normal sinus rhythm Possible Left atrial enlargement Incomplete right bundle branch block Left anterior fascicular block Marked ST abnormality, possible lateral subendocardial injury Prolonged QT Abnormal ECG Confirmed by NASRIN COPE ([id number]), field map editor GONZALEZ GRIFFIN ([id number]) on 11/07/2018 11:16:41 AM Referred By: Juna Carlos Plummer Confirmed By:NASRIN COPE
--- NOTE | 2018-11-03 17:15 | RAD_ITS ---
STUDY: X-RAY CHEST REASON FOR EXAM: Male, 67 years old. Difficulty breathing, worsening shortness of breath history of lung cancer TECHNIQUE: Single AP portable view of the chest. COMPARISON: 06/04/2018 FINDINGS: EKG leads overlie the chest. Stable appearance of a right subclavian port. Left lung is normally expanded with chronic interstitial changes but no superimposed acute pulmonary process. There is opacification now in the inferior half of the right hemithorax a likely combination of atelectasis, and effusion though infiltrate or recurrent carcinoma cannot be excluded. Further evaluation with chest CT recommended. Heart size cannot be accurately evaluated due to opacification in the right hemithorax. Normal mediastinum and mercedes. Normal visualized pulmonary arteries. Normal visualized aortic arch and descending thoracic aorta. Normal visualized thoracic spine. Normal visualized ribs, clavicles, and shoulders. There is no demonstrated abnormality of the visualized soft tissue structures of the upper abdomen. RAD/Chest 1 View (Portable) IMPRESSION: Opacification in the inferior half of the right hemithorax suggesting likely combination of atelectasis and effusion. Infiltrate and/or recurrence of lung carcinoma cannot be excluded. Recommend further evaluation with chest CT. Left lung shows chronic interstitial changes but no superimposed acute pulmonary process Electronically Signed: Ziggy Blevins MD at 17:30 EDT , Service support ,
[2018-11-03 17:54] LABS: Absolute Lymphocyte Count 0.68 X10^3/ul (0.83-4.51); Absolute Neutrophil Count 3.8 X10^3/uL (2.0-7.7); Basophil# 0.02 X10^3/uL; Basophil% 0.4 % (0-1); Eosinophil# 0.04 X10^3/uL; Eosinophils% 0.8 % (0-5); Hematocrit 36.9 % (40-54); Hemoglobin 11.8 g/dl (13.0-16.5); Lymphocyte # 0.68 X10^3/ul (4.0); Lymphocyte % 12.8 % (19-41); Mean Corpuscular Hgb 28.8 pg (27.0-32.0); Mean Platelet Vol. 8.5 fl (6.2-12.0); Monocyte# 0.78 X10^3/uL; Monocyte% 14.7 % (0-10); Neutrophil # 3.78 X10^3/uL (2.7-7.7); Neutrophil % 70.9 % (47-70); POSITIVE COUNT NO; POSITIVE DIFFERENTIAL NO; POSITIVE MORPHOLOGY NO; Platelet Count 169 K/mm3 (150-450); RBC Distribution Width CV 13.8 % (11.6-14.6); RBC Distribution Width SD 45.6 fl (35.1-43.9); White Blood Count 5.3 K/mm3 (4.4-11.0)
[2018-11-03 18:10] LABS: Anion Gap 4 (5-15); BUN 15 mg/dL (7-18); BUN/Creat Ratio 15.8 RATIO (10-20); Calcium,Total 8.7 mg/dL (8.5-10.1); Chloride 96 mmol/L (98-107); Creatinine, Serum 0.95 mg/dL (0.70-1.30); EST Glomerular Filtration Rate 84 mL/min (>60); Est Glom Filt Rate - Afr Amer 101 mL/min (>60); Estimated Creatinine Clearance 75.45 ml/min; Glucose 132 mg/dL (74-106); Potassium 3.8 mmol/L (3.5-5.1); Sodium Level 130 mmol/L (136-145)
--- NOTE | 2018-11-03 18:27 | CT_ITS ---
STUDY: CTA CHEST REASON FOR EXAM: Male, 67 years old. Shortness of breath, pleural effusion RADIATION DOSAGE (If Supplied By Facility): CTDIvol = ( 14.70 ) mGy, DLP = ( 490.53 ) mGycm TECHNIQUE: The examination was performed with the intravenous administration of 100 IV Isovue 370. Post-processing of the angiographic images was performed, with multiplanar reformation and 3D reconstruction. Individualized dose optimization techniques were used for this CT. COMPARISON: 10/29/2018 FINDINGS: Overall, there is no interval change since the previous study. Normal enhancement of the pulmonary arteries and their branches though there is significant abrupt cut off of branches leading to the right lower lobe due to a combination of loculated effusion, atelectasis, consolidation, an underlying neoplastic process cannot be excluded. There is abrupt blockage of the bronchus leading to the right lower lobe best seen on axial image 120 and coronal recon images 154 through 156. There is atherosclerotic calcification of the aortic arch with tortuosity. There is no demonstrated aortic dissection. The previously mentioned consolidation and likely recurrence of neoplasm abuts the majority of the right heart border. There are likely stents within multiple coronary arteries. Left hilum is free of superimposed process there is no suspicious axillary or superior mediastinal adenopathy. Normal visualized trachea and bronchi. Left lung is normally expanded. There is volume loss in the right lung due to the underlying atelectasis and consolidation. There are scattered interstitial changes in the visualized right lung but no organized infiltrate or effusion the left lung shows no superimposed process. There are degenerative changes of thoracic spine. Normal visualized upper abdomen. CT/CTA Chest W/WO Contrast IMPRESSION: No demonstrated PE, or thoracic aortic aneurysm, or dissection Atelectasis and consolidation in the right lower lobe. The right middle lobe mass is unchanged from the previous study. Once again noted is abrupt stenosis of the right mainstem bronchus and the pulmonary artery branch leading to the right lower lobe. Stable large pleural effusion Electronically Signed: Ziggy Blevins MD at 19:14 EDT , Service support ,
[2018-11-03] MEDS: 0.9% Normal Saline 1,000 ML 100 ML IV (18:36)
[2018-11-03 19:28] LABS: Bacteria 0 SEEN /hpf (None Seen); Mucous, Urine 0 SEEN /hpf (<or=2+); White Blood Cells 0 SEEN /hpf (0-5)
--- NOTE | 2018-11-03 19:43 | ED.DCSUM_ITS ---
- ER Visit Summary Date of Service: 11/03/18 Chief Complaint: Short of breath History of Present Illness: The patient is a 67 M with history of non-small cell lung cancer. He is currently receiving immunotherapy every 2 weeks and is due for his next treatment tomorrow. He has noted increased shortness of breath of the last 3 to 4 days. It is worse with exertion and better at rest. He reports intermittent right lower chest pain as well. Physical Examination: Vital signs unremarkable. O2 sat is 97% on 2 L nasal cannula. He does not normally wear oxygen. Head and neck examination unremarkable. Heart is regular rate and rhythm. Lung sounds are diminished at the right base. Abdomen is soft nontender. There is no reproducible tenderness in the right upper quadrant or over the right lower chest. Test Results: EKG is sinus at [address] change. Portable chest x-ray shows opacification of the anterior right hemithorax suggesting combination of atelectasis and effusion. CBC was normal white count. Hemoglobin 11.8. Chemistry studies reveal a sodium of 130 and chloride 96. Emergency Department Course and Treatment: With the patient having intermittent right lower chest pain and history of cancer, CT of the chest was obtained to rule out PE. There is no evidence of PE or dissection. Atelectasis and consolidation are noted to the right lower lobe. There is a large pleural effusion. The right middle lobe mass is unchanged when compared to previous study. Patient does have a large pleural effusion and is now becoming more symptomatic with this. We will admit the patient overnight. His oncologist to be consulted and fluid will likely be drained. I have spoken with the hospitalist. Treatment Plan: [] Disposition: Admit Impression: 1. Dyspnea 2. Pleural effusion 3. Hyponatremia This note was generated with [employer] software. It may contain incorrect words, spelling, and punctuation that were not noted in review of the chart prior to signing ED Disposition - Plan for ED Patient: Referrals: Semaj Hancock MD [Primary Care Provider] -
--- NOTE | 2018-11-03 19:48 | PCM.HP.STD ---
Problem List (1) Pleural effusion Status: Acute (2) Non-small cell lung cancer Status: Chronic (3) Tobacco abuse, in remission Status: Chronic (4) Hypertension Status: Chronic (5) Hyperlipidemia Status: Chronic (6) H/O hernia repair Status: Resolved Comment: as baby History of Present Illness Date of Admission: 11/03/18 Chief Complaint: shortness of breath The patient is a 67 year old male patient with a past medical history of non-small cell lung cancer diagnosed this past summer. He presents to the ER with worsening shortness of breath over the past 2-3 weeks. He was to receive immunotherapy tomorrow. CXR reveals a large pleural effusion on the right side. He is comfortable with oxygen when at rest but becomes short of breath with any exertion. No nausea or vomiting or other complaints at this time. He will be admitted to PCU and Dr. Cehrry consulted for further management. 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, in remission (Chronic) Hypertension (Chronic) Hyperlipidemia (Chronic) Medical History: Medical History (Last Reviewed 10/21/18 @ 09:52 by Najma Castro) Primary cancer of right middle lobe of lung (Chronic) C34.2 Stage 4 very severe COPD by GOLD classification (Chronic) J44.9 Tobacco abuse, in remission (Chronic) F17.201 Educational circumstance (Acute) Z55.9 Hypertension (Chronic) I10 Hyperlipidemia (Chronic) E78.5 Hemoptysis (Acute) R04.2 Pneumonia (Acute) J18.9 Allergies No Known Allergies Allergy (Verified 11/03/18 17:40) Home Medications: Ambulatory Orders Medication Instructions Recorded Metoprolol Tartrate [Lopressor 50 mg PO BID 06/16/17 (beta shorty)] Simvastatin [Zocor] 40 mg PO QHS 06/16/17 [place]-3 Fatty Acids/Fish Oil [Fish 1 ea PO DAILY 12/11/17 Oil 1,000 mg Capsule] Albuterol IH (ProAir) [Proair Hfa] 1 puff INHALATION Q4H PRN PRN #1 06/14/18 inhaler Guaifenesin [Mucinex] 1,200 mg PO BID 01/14/18 Lidocaine/Prilocaine 30 gm TP DAILY PRN PRN #1 cream..g. 03/10/18 [Lidocaine-Prilocaine Cream] Ondansetron [Zofran Odt] 4 mg PO Q8H PRN PRN 10 Days #30 03/10/18 tab.rapdis Omeprazole [Prilosec] 20 mg PO DAILY #30 cap 04/02/18 albuterol sulfate HFA 90 2 puff INHALATION Q4H PRN #3 ea 04/08/18 mcg/actuation aerosol inhaler Fluticasone/Umeclidin/Vilanter 1 puff INHALATION DAILY 11/03/18 [Jordan Melendezta 100-62.5-25] Surgical History: Surgical History (Last Reviewed 10/21/18 @ 09:52 by Najma Castro) H/O hernia repair (Resolved) Z98.890, Z87.19 as baby EBUS Surgical History: - Psychiatric History: No pertinent psych hx Smoking Status: Former smoker - *Family History Maternal Family History: Family History (Last Reviewed 10/21/18 @ 09:52 by Najma Castro) Father Myocardial infarction Hypertension Mother Pneumonia History Items: - - no malignancy. from CHF in her 80's Paternal Family History: Family History (Last Reviewed 10/21/18 @ 09:52 by Najma Castro) Father Myocardial infarction Hypertension Mother Pneumonia History Items: Heart Disease, - - from [place] in his 70's, no malignancies Review of Systems Constitutional: Denies: Chills, Fever, Weight Change HEENT: Denies: Head Aches, Sinus Congestion, Sinus Drainage Cardiovascular: Denies: Chest Pain, Palpitations Respiratory: Reports: Shortness of Breath, Shortness of breath upon exertion. Denies: Cough, Sputum production Gastrointestinal: Denies: Abdominal Pain, Nausea, Vomiting Genitourinary: Denies: Dysuria Musculoskeletal: Denies: Joint Pain, Joint Tenderness Skin: Denies: Rash, Wounds Neurological: Denies: Numbness, Tingling, Focal weakness Psychiatric: Denies: Anxiety, Depression, Homicidal Ideations, Suicidal Ideations Hematologic/ Lymphatic: Denies: Easy Bruising, Easy Bleeding VTE Information - Inpt Only VTE Present on Admission: No VTE Mechan Device Prophylaxis: None VTE Pharm Prophylaxis ordered?: Yes Patient Problems: Active and Suspected Problems (Last Reviewed 10/21/18 @ 09:52 by Najma Castro) Pleural effusion (Acute) - Physical Exam General: Alert, Oriented x3, Cooperative HEENT: Atraumatic, Normocephalic Neck: Supple Lungs: No rhonchi, No wheeze, No rales, Diminished Cardiovascular: Regular rate, Normal S1, Normal S2, No murmurs Abdomen: Bowel Sounds Present, Soft, Non Tender Extremities: No edema Skin: No rashes Musculoskeletal: No Tenderness to Palpation of Joints or Extremities Neurological: Neuro grossly intact Psych/Mental Status: Normal Affect, Appropriate Vital Signs Temp Pulse Resp BP Pulse Ox 98.8 F 82 20 H 161/89 H 98 11/03/18 17:09 11/03/18 19:21 11/03/18 19:21 11/03/18 19:21 11/03/18 19:21 Oxygen Flow Rate (L/min) 2 Oxygen Delivery Method Nasal Cannula Weight: 199 lb Body Mass Index (BMI) 29.3 Laboratory Tests Past 24 Hrs 11/03/18 11/03/18 11/03/18 17:45 17:45 19:20 WBC 5.3 RBC 4.10 L Hgb 11.8 L Hct 36.9 L MCV 90.0 MCH 28.8 MCHC 32.0 RDW 13.8 RDW Differential 45.6 H Plt Count 169 MPV 8.5 Immature Gran % (Auto) 0.400 Neut % (Auto) 70.9 H Lymph % (Auto) 12.8 L [place] % (Auto) 14.7 H Eos % (Auto) 0.8 Baso % (Auto) 0.4 Absolute Neuts (auto) 3.8 Absolute Lymphs (auto) 0.68 L Total Counted Not Reportable Sodium 130 L Potassium 3.8 Chloride 96 L Carbon Dioxide 30.0 Anion Gap 4 L BUN 15 Creatinine 0.95 Estim Creat Clear Calc 75.45 Est GFR (MDRD) Af Amer 101 Est GFR (MDRD) Non-Af 84 BUN/Creatinine Ratio 15.8 Glucose 132 H Calcium 8.7 Urine Color Pending Urine Clarity Pending Urine pH Pending Ur Specific [place] Pending Urine Protein Pending Urine Glucose (UA) Pending Urine Ketones Pending Urine Occult Blood Pending Urine Nitrite Pending Urine Bilirubin Pending Urine Urobilinogen Pending Ur Leukocyte Esterase Pending Urine RBC Pending Urine WBC Pending Ur Squamous Epith Cells Pending Urine Bacteria Pending Urine Mucus Pending Assessment/Plan All Active Problems (Last Reviewed 10/21/18 @ 09:52 by Najma Castro) CAP (community acquired pneumonia) (Acute) Acute bacterial sinusitis (Acute) Chemotherapy management, encounter for (Acute) Electrolyte imbalance (Acute) Immunotherapy encounter (Acute) Encounter for immunotherapy (Acute) Pleural effusion (Acute) Encounter for fitting and adjustment of vascular catheter (Acute) Educational circumstance (Acute) H/O hernia repair (Resolved) Hemoptysis (Acute) Pneumonia (Acute) Chronic Problems (Last Reviewed 10/21/18 @ 09:52 by Najma Castro) Non-small cell lung cancer (Chronic) Anemia (Chronic) Pleural effusion, right (Chronic) March 2018, negative cytology Primary cancer of right middle lobe of lung (Chronic) 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 Acute pleural effusion Plan 1. Admit to PCU, consult Dr. Cherry, continue oxygen per protocol. get coagulation panel and cbc ,bmp for am anticipate thoracentesis tomorrow. 2. hypertension-continue home medication 3. Hyperlipidemia- continue statin 4. DVT prophylaxis- LMWH Code Visit Inpatient E&M: 98470 Init Hosp L3
[2018-11-03 20:10] LABS: Color, Urine Yellow (Yellow); Glucose, Dipstick Normal (Normal); Ketone-Dipstick Negative (Negative); Nitrite-Dipstick Negative (Negative); Protein-Dipstick Negative (Negative); Urine Bilirubin Dipstick Negative (Negative); Urine Clarity Sl Cldy (Clear); Urine Urobilinogen Normal (Normal)
[2018-11-03 20:11] LABS: Leukocyte Esterase-Dipstick Negative /ul (Negative); Occult Blood-Urine 10 /ul (Negative)
[2018-11-03 20:12] LABS: Red Blood Cells-Urine 0-5 SEEN /hpf (0-5); Squamous Epithelial Cells - UA 0-5 SEEN /hpf (0-5)
--- NOTE | 2018-11-03 21:00 | NURSING ---
This RN took over care and received report at this time
[2018-11-03] MEDS: Acetaminophen 325 MG Tablet 650 MG PO (22:03)
[2018-11-03] MEDS: Metoprolol Tartrate 50 MG Tablet PO (22:03)
[2018-11-03] MEDS: Atorvastatin Calcium 20 MG Tablet PO (22:03)
[2018-11-04] VITALS (11 sets, daily range): BP systolic 112–140; BP diastolic 62–84; PULSE 78–109; RESP 15–20; TEMP 37.1–37.3; O2SAT 91–100
[2018-11-04] MEDS: 0.9% NaCl VAD Flush 10 ML IV ×3 (05:20→12:14)
[2018-11-04 05:31] LABS: Hematocrit 37.2 % (40-54); Hemoglobin 11.8 g/dl (13.0-16.5); Mean Corp Hgb Conc 31.7 g/gl (32-36); Mean Corpuscular Hgb 28.6 pg (27.0-32.0); Mean Corpuscular Volume 90.1 fL (80-94); Mean Platelet Vol. 7.9 fl (6.2-12.0); Platelet Count 195 K/mm3 (150-450); RBC Distribution Width CV 13.9 % (11.6-14.6); RBC Distribution Width SD 44.7 fl (35.1-43.9); Red Blood Count 4.13 M/mm3 (4.6-6.2); Scan Indicated on CBC? Y/N NO; White Blood Count 4.9 K/mm3 (4.4-11.0)
[2018-11-04 05:40] LABS: International Normalized Ratio 1.1; Prothrombin Time (Protime)PT. 13.8 SECONDS (11.7-14.9)
[2018-11-04 05:44] LABS: Anion Gap 6 (5-15); BUN 12 mg/dL (7-18); BUN/Creat Ratio 13.8 RATIO (10-20); Calcium,Total 8.6 mg/dL (8.5-10.1); Chloride 97 mmol/L (98-107); Creatinine, Serum 0.87 mg/dL (0.70-1.30); EST Glomerular Filtration Rate 93 mL/min (>60); Est Glom Filt Rate - Afr Amer 112 mL/min (>60); Estimated Creatinine Clearance 82.39 ml/min; Glucose 97 mg/dL (74-106); Sodium Level 135 mmol/L (136-145)
[2018-11-04] MEDS: Ipratropium/Albuterol Sulfate 3 ML AMPUL.NEB INHALATION ×3 (06:50→19:53)
[2018-11-04] MEDS: Budesonide Respules 0.5 MG/2 ML AMPUL.NEB. INHALATION ×2 (06:50→19:55)
--- NOTE | 2018-11-04 07:41 | CON.PCM_ITS ---
Reason for Consult Date of Consultation: 11/04/18 Reason for Consultation: Pleural effusion History of Present Illness: The patient is a 67-year-old male, with a history as outlined below, who presented to the emergency department on November 03 with complaints of shortness of breath. On presentation to the emergency department, he was noted to be afebrile and mildly hypertensive. He was maintaining appropriate oxygen saturations on 2 L/min via nasal cannula. Laboratory evaluation revealed no e vidence of a leukocytosis. Chemistry profile revealed a sodium of 130 and chloride of 96. Urinalysis was largely unremarkable. A CTA chest was obtained in the emergency department. No PE was identified. There was consolidation and associated atelectasis of the right lower lobe. There was evidence of right mainstem stenosis and impingement of the pulmonary artery leading to the right lower lobe. The patient's effusion and associated compressive atelectasis appear to have progressed significantly since CT chest from July 2018. Of note, the patient did undergo an ultrasound-guided thoracentesis in March 2018 of his right hemithorax. Cytology at that time revealed no evidence of malignant cells. The patient has a history of end-stage COPD. He is followed longitudinally in the pulmonary medicine clinic. The patient has a smoking history that includes 2-1/2 packs per day ?20 years, having quit completely in 2009. 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 During an inpatient hospitalization in November 2017 the patient was noted to have an abnormal chest CT with concerns for underlying malignancy. On January 17, 2018, the patient underwent bronchoscopy with endoscopic endobronchial ultrasound, transbronchial needle aspiration, endobronchial biopsies and bronchial washings. On airway evaluation, the patient was noted to have a fungating obstructing mass occupying the orifice of the right middle and right lower lobe bronchi. The lesion could be traversed with the bronchoscope. While no significant left-sided adenopathy was identified, a sizable subcarinal lymph node was identified with ultrasound and subsequently biopsied. That lymph node was negative for malignancy. Transbronchial needle aspiration was performed of the right hilar lesion and endobronchial biopsies were obtained from the fungating mass aforementioned. The patient's transbronchial needle aspiration of the right infrahilar mass and endobronchial biopsies were all positive for non-small cell carcinoma, favor squamous cell carcinoma. Pulmonary function studies completed in January 2018 revealed evidence of a partially reversible very severe large airways obstructive ventilatory defect with associated air trapping and symmetric reduction in diffusing capacity. A 6-minute walk test was also completed at that time and revealed no significant exertional oxygen desaturation. The patient is currently being followed by Dr. Plummer of oncology and was last seen in their clinic at the end of September 2018. The patient began consolidation therapy with Durvalumab (anti-PDL 1 monoclonal antibody immune therapy) maintenance for 1 year on September 09, 2018. Past Medical History Past Medical History (Chronic Problems): Chronic Problems (Last Updated 11/04/18 @ 11:05 by Juan Carlos Plummer MD) Immunotherapy encounter (Chronic) Non-small cell lung cancer (Chronic) Anemia (Chronic) Pleural effusion, right (Chronic) March 2018, negative cytology Primary cancer of right middle lobe of lung (Chronic) Stage 4 very severe COPD by GOLD classification (Chronic) Tobacco abuse, in remission (Chronic) Hypertension (Chronic) Hyperlipidemia (Chronic) Medical History: Medical History (Last Updated 11/04/18 @ 11:05 by Juan Carlos Plummer MD) Primary cancer of right middle lobe of lung (Chronic) C34.2 Stage 4 very severe COPD by GOLD classification (Chronic) J44.9 Tobacco abuse, in remission (Chronic) F17.201 Educational circumstance (Acute) Z55.9 Hypertension (Chronic) I10 Hyperlipidemia (Chronic) E78.5 Hemoptysis (Acute) R04.2 Pneumonia (Acute) J18.9 Allergies No Known Allergies Allergy (Verified 11/03/18 17:40) Home Medications: Ambulatory Orders Medication Instructions Recorded Metoprolol Tartrate [Lopressor 50 mg PO BID 06/16/17 (beta shorty)] Simvastatin [Zocor] 40 mg PO QHS 06/16/17 Guaifenesin [Mucinex] 1,200 mg PO BID 01/14/18 albuterol sulfate HFA 90 2 puff INHALATION Q4H PRN #3 ea 04/08/18 mcg/actuation aerosol inhaler Fluticasone/Umeclidin/Vilanter 1 puff INHALATION DAILY 11/03/18 [Jordan Krishnamurthy 100-62.5-25] Surgical History: Surgical History (Last Reviewed 10/21/18 @ 09:52 by Najma Castro) H/O hernia repair (Resolved) Z98.890, Z87.19 as baby EBUS Surgical History: - Psychiatric History: No pertinent psych hx Smoking Status: Former smoker - *Family History Maternal Family History: Family History (Last Reviewed 10/21/18 @ 09:52 by Najma Castro) Father Myocardial infarction Hypertension Mother Pneumonia History Items: - - no malignancy. from CHF in her 80's Paternal Family History: Family History (Last Reviewed 10/21/18 @ 09:52 by Najma Castro) Father Myocardial infarction Hypertension Mother Pneumonia History Items: Heart Disease, - - from [place] in his 70's, no malignancies Review of Systems Constitutional: Denies: Chills, Fever Eyes: Denies: Blurred vision, Double vision HEENT: Denies: Head Aches, Sinus Congestion, Sinus Drainage Cardiovascular: Denies: Chest Tightness Respiratory: Reports: Shortness of Breath. Denies: Cough, Sputum production Gastrointestinal: Denies: Abdominal Pain, Nausea, Vomiting Genitourinary: Denies: Dysuria Musculoskeletal: Denies: Joint Pain, Joint Tenderness Skin: Denies: Rash, Wounds Neurological: Denies: Numbness, Tingling, Focal weakness Psychiatric: Denies: Anxiety, Depression, Homicidal Ideations, Suicidal Ideations Hematologic/ Lymphatic: Denies: Easy Bruising, Easy Bleeding Patient Problems: Active and Suspected Problems (Last Updated 11/04/18 @ 11:05 by Juan Carlos Plummer MD) Dyspnea (Acute) Pleural effusion (Acute) Objective: The patient's most recent lab work, culture data and imaging studies have all been personally reviewed. - Physical Exam General: Alert, Cooperative, No apparent distress HEENT: Atraumatic, PERRLA, Normocephalic Oral: No Gingival or Mucosal Lesions/ Ulcerations Neck: Supple, No Nodes, Trachea Midline Lungs: Diminished, - - + Dullness to percussion the right lung base. Stable chest wall port. Cardiovascular: Regular rate, Regular Rhythm, Normal S1, Normal S2, No murmurs Abdomen: Bowel Sounds Present, Soft, Non Tender Extremities: No clubbing, No cyanosis, No edema Skin: No breakdown Musculoskeletal: No Tenderness to Palpation of Joints or Extremities Lymphatic: No Cervical, Supraclavicular, or Inguinal Adenopathy Neurological: Cranial nerves II-XII grossly intact, Neuro grossly intact Psych/Mental Status: Alert and oriented to time, place, person, mood and affect Vital Signs Temp Pulse Resp BP Pulse Ox 98.8 F 85 16 123/73 H 94 11/04/18 03:51 11/04/18 06:50 11/04/18 06:50 11/04/18 03:51 11/04/18 06:50 Oxygen Flow Rate (L/min) 2 Oxygen Delivery Method Nasal Cannula Weight: 194 lb 10.691 oz Body Mass Index (BMI) 28.7 Intake and Output for Last 24 Hours 11/02/18 11/03/18 11/04/18 23:59 23:59 23:59 Intake Total 497 / 497 696 / 696 Balance 497 / 497 696 / 696 Laboratory Tests Past 24 Hrs 11/03/18 11/03/18 11/03/18 17:45 17:45 19:20 WBC 5.3 RBC 4.10 L Hgb 11.8 L Hct 36.9 L MCV 90.0 MCH 28.8 MCHC 32.0 RDW 13.8 RDW Differential 45.6 H Plt Count 169 MPV 8.5 Immature Gran % (Auto) 0.400 Neut % (Auto) 70.9 H Lymph % (Auto) 12.8 L [place] % (Auto) 14.7 H Eos % (Auto) 0.8 Baso % (Auto) 0.4 Absolute Neuts (auto) 3.8 Absolute Lymphs (auto) 0.68 L Total Counted Not Reportable PT INR Sodium 130 L Potassium 3.8 Chloride 96 L Carbon Dioxide 30.0 Anion Gap 4 L BUN 15 Creatinine 0.95 Estim Creat Clear Calc 75.45 Est GFR (MDRD) Af Amer 101 Est GFR (MDRD) Non-Af 84 BUN/Creatinine Ratio 15.8 Glucose 132 H Calcium 8.7 Urine Color Yellow Urine Clarity Sl Cldy Urine pH 8.0 Ur Specific [place] 1.010 Urine Protein Negative Urine Glucose (UA) Normal Urine Ketones Negative Urine Occult Blood 10 H Urine Nitrite Negative Urine Bilirubin Negative Urine Urobilinogen Normal Ur Leukocyte Esterase Negative Urine RBC 0-5 SEEN Urine WBC 0 SEEN Ur Squamous Epith Cells 0-5 SEEN Urine Bacteria 0 SEEN Urine Mucus 0 SEEN 11/04/18 11/04/18 11/04/18 05:20 05:20 05:20 WBC 4.9 RBC 4.13 L Hgb 11.8 L Hct 37.2 L MCV 90.1 MCH 28.6 MCHC 31.7 L RDW 13.9 RDW Differential 44.7 H Plt Count 195 MPV 7.9 Immature Gran % (Auto) Neut % (Auto) Lymph % (Auto) [place] % (Auto) Eos % (Auto) Baso % (Auto) Absolute Neuts (auto) Absolute Lymphs (auto) Total Counted PT 13.8 INR 1.1 Sodium 135 L Potassium 4.0 Chloride 97 L Carbon Dioxide 32.0 Anion Gap 6 BUN 12 Creatinine 0.87 Estim Creat Clear Calc 82.39 Est GFR (MDRD) Af Amer 112 Est GFR (MDRD) Non-Af 93 BUN/Creatinine Ratio 13.8 Glucose 97 Calcium 8.6 Urine Color Urine Clarity Urine pH Ur Specific [place] Urine Protein Urine Glucose (UA) Urine Ketones Urine Occult Blood Urine Nitrite Urine Bilirubin Urine Urobilinogen Ur Leukocyte Esterase Urine RBC Urine WBC Ur Squamous Epith Cells Urine Bacteria Urine Mucus Clinical Impression(s) from Imaging Studies Chest X-Ray 11/03/18 17:15 IMPRESSION: Opacification in the inferior half of the right hemithorax suggesting likely combination of atelectasis and effusion. Infiltrate and/or recurrence of lung carcinoma cannot be excluded. Recommend further evaluation with chest CT. Left lung shows chronic interstitial changes but no superimposed acute pulmonary process Electronically Signed: Ziggy Blevins MD at 17:30 EDT , Service support , Chest CTA 11/03/18 18:27 IMPRESSION: No demonstrated PE, or thoracic aortic aneurysm, or dissection Atelectasis and consolidation in the right lower lobe. The right middle lobe mass is unchanged from the previous study. Once again noted is abrupt stenosis of the right mainstem bronchus and the pulmonary artery branch leading to the right lower lobe. Stable large pleural effusion Electronically Signed: Ziggy Blevins MD at 19:14 EDT , Service support , Assessment/Plan All Active Problems (Last Updated 11/04/18 @ 11:05 by Juan Carlos Plummer MD) Dyspnea (Acute) CAP (community acquired pneumonia) (Acute) Acute bacterial sinusitis (Acute) Chemotherapy management, encounter for (Resolved) Electrolyte imbalance (Acute) Encounter for immunotherapy (Acute) Pleural effusion (Acute) Encounter for fitting and adjustment of vascular catheter (Acute) Educational circumstance (Acute) H/O hernia repair (Resolved) Hemoptysis (Acute) Pneumonia (Acute) RECOMMENDATIONS: 1. Lovenox to be placed on hold. 2. Orders for ultrasound-guided thoracentesis have been placed. There are tentative plans for the procedure to be completed at 1:30 PM. 3. Check serum LDH and total protein levels. 4. Orders for pleural fluid studies have been placed. 5. Wean supplemental oxygen to maintain saturations at or above 90%. 6. Encourage incentive spirometer use while in bed. 7. Continue bronchodilators and budesonide as ordered. IMPRESSIONS: 1. Right-sided pleural effusion/history of non-small cell lung cancer The patient's chest imaging studies were personally reviewed. The patient does have a progressive right-sided pleural effusion, which appears to have a large since prior CT in July. The patient did undergo an ultrasound-guided thoracentesis in 2018, at which time, the patient's pleural fluid studies were negative for malignancy. In light of the patient's respiratory decline, would advocate for proceeding with an ultrasound-guided thoracentesis. Orders have been placed for the procedure and pleural fluid studies, which will also include pleural fluid cytology. Given the patient's lack of fever, leukocytosis or productive cough, I am less concerned about underlying infectious process. Continue to wean supplemental oxygen to maintain saturations at or above 90%. Encourage incentive spirometer use to aid in alveolar recruitment following thoracentesis. 2. Stage IV COPD Continue scheduled bronchodilators and budesonide. Resume Trelegy at discharge. This note was generated with [employer] dictation software. It may contain incorrect words, spelling, and punctuation that were not noted in checking the note before signing. Code Visit Inpatient E&M: 07039 Init Hosp L3
--- NOTE | 2018-11-04 07:48 | US_ITS ---
PROCEDURE: ULTRASOUND GUIDED THORACENTESIS. DATE: November 04, 2018. INDICATION: Male, 67 years old. Right pleural effusion. PHYSICIAN: Fish Mac M.D. PROCEDURE: The risks, benefits, and alternatives to the procedure were explained to the patient. The specific risks of bleeding, infection, and pneumothorax requiring chest tube insertion were discussed and accepted. Written informed consent was obtained. Ultrasonographic evaluation of the right lower pleural space was carried out. An adequate pocket was identified. The patient was placed in the sitting, upright position. The overlying skin was prepped and draped in sterile fashion. 1% lidocaine was administered subcutaneously for local anesthesia. Under ultrasound guidance, a 5 Lao thoracentesis needle/catheter system was advanced into the right posterior lower pleural fluid collection. Approximately 920 mL of carolin-colored fluid was drained. The catheter was removed, and a sterile dressing was applied. A specimen was collected and sent to the laboratory for analysis, as requested by the referring clinician. The patient tolerated the procedure well. A chest x-ray was ordered. US/Thoracentesis W US IMPRESSION: Ultrasound-guided right thoracentesis. Electronically Signed: Fish Mac, at 14:35 EDT , Service support ,
--- NOTE | 2018-11-04 07:56 | PCM.PN.HOSP ---
Patient Problems: Active and Suspected Problems (Last Updated 11/04/18 @ 11:05 by Juan Carlos Plummer MD) Dyspnea (Acute) Pleural effusion (Acute) Subjective: This is a 67-year-old gentleman with diagnosis of NSCLC, squamous cell cancer diagnosed in December 2017 by EBUS with transbronchial needle aspiration of fungating obstructing mass occupying the orifice of right middle and right lower lobe rhonchi and right hilar lesion. Patient also had thoracocentesis in March 2018 which was negative for malignant cells. Patient had first chemotherapy and radiotherapy, started in August [address] Plummer and was supposed begin consolidation immunotherapy on 11/04/2018; Durvalumab. Patient is getting progressively short of breath for last few weeks but more since 3-4 days, with the dyspnea at rest and very difficult to do activities of daily living. Patient also had low-grade fever at home. Patient has worsening of cough and brings up clear sputum. Of note, patient has a history of COPD, as per PFT in January 2018 which showed partially reversible very severe large airway obstructive ventilatory defect associated with air trapping and reduction in diffusing capacity. He has a history of smoking of 2 and half packs for 20 years quit in 2009 Vitals/I&O's: Vital Signs Temp Pulse Resp BP Pulse Ox 98.8 F 85 16 123/73 H 94 11/04/18 03:51 11/04/18 06:50 11/04/18 06:50 11/04/18 03:51 11/04/18 06:50 Oxygen Flow Rate (L/min) 2 Oxygen Delivery Method Nasal Cannula Weight: 194 lb 10.691 oz Body Mass Index (BMI) 28.7 Intake and Output for Last 24 Hours 11/02/18 11/03/18 11/04/18 23:59 23:59 23:59 Intake Total 497 / 497 696 / 696 Balance 497 / 497 696 / 696 General: Alert, Oriented x3, Cooperative, - - Short of breath HEENT: Atraumatic, PERRLA, EOMI, Normocephalic Neck: Supple, No JVD, Negative Carotid Bruits Lungs: Diminished - Air entry is diminished below fifth intercostal space on the right side stony dullness found. On fifth right intercostal space low, Short of Breath, - - Right subclavian vein MediPort Cardiovascular: Regular rate, Regular Rhythm, Normal S1, Normal S2, No murmurs Abdomen: Bowel Sounds Present, Soft, Non Tender, Non-Distended Extremities: No edema, Capillary Refill Less than 3 Seconds Skin: No rashes, No breakdown Musculoskeletal: No Tenderness to Palpation of Joints or Extremities, Arthritic Changes, Muscle Wasting Neurological: Cranial nerves II-XII grossly intact Psych/Mental Status: Normal Affect, Appropriate Laboratory Results 11/03/18 17:45: WBC 5.3, RBC 4.10 L, Hgb 11.8 L, Hct 36.9 L, MCV 90.0, MCH 28.8, MCHC 32.0, RDW 13.8, RDW Differential 45.6 H, Plt Count 169, MPV 8.5, Immature Gran % (Auto) 0.400, Neut % (Auto) 70.9 H, Lymph % (Auto) 12.8 L, [place] % (Auto) 14.7 H, Eos % (Auto) 0.8, Baso % (Auto) 0.4, Absolute Neuts (auto) 3.8, Absolute Lymphs (auto) 0.68 L, Total Counted Not Reportable 11/03/18 17:45: Sodium 130 L, Potassium 3.8, Chloride 96 L, Carbon Dioxide 30.0, Anion Gap 4 L, BUN 15, Creatinine 0.95, Estim Creat Clear Calc 75.45, Est GFR (MDRD) Af Amer 101, Est GFR (MDRD) Non-Af 84, BUN/Creatinine Ratio 15.8, Glucose 132 H, Calcium 8.7 11/03/18 19:20: Urine Color Yellow, Urine Clarity Sl Cldy, Urine pH 8.0, Ur Specific [place] 1.010, Urine Protein Negative, Urine Glucose (UA) Normal, Urine Ketones Negative, Urine Occult Blood 10 H, Urine Nitrite Negative, Urine Bilirubin Negative, Urine Urobilinogen Normal, Ur Leukocyte Esterase Negative, Urine RBC 0-5 SEEN, Urine WBC 0 SEEN, Ur Squamous Epith Cells 0-5 SEEN, Urine Bacteria 0 SEEN, Urine Mucus 0 SEEN 11/04/18 05:20: Sodium 135 L, Potassium 4.0, Chloride 97 L, Carbon Dioxide 32.0, Anion Gap 6, BUN 12, Creatinine 0.87, Estim Creat Clear Calc 82.39, Est GFR (MDRD) Af Amer 112, Est GFR (MDRD) Non-Af 93, BUN/Creatinine Ratio 13.8, Glucose 97, Calcium 8.6 11/04/18 05:20: WBC 4.9, RBC 4.13 L, Hgb 11.8 L, Hct 37.2 L, MCV 90.1, MCH 28.6, MCHC 31.7 L, RDW 13.9, RDW Differential 44.7 H, Plt Count 195, MPV 7.9 11/04/18 05:20: PT 13.8, INR 1.1 Current Medications Acetaminophen (Tylenol) 650 mg PO Q6H PRN PRN PRN Reason: Pain or Fever Last Admin: 11/03/18 22:03 Dose: 650 mg Albuterol Sulfate (Ventolin Aerosols) 2.5 mg INHALATION Q4H PRN PRN Reason: shortness of breath or wheezin Albuterol/Ipratropium (Duoneb) 3 ml INHALATION Q6HWA.RT [facility] Last Admin: 11/04/18 06:50 Dose: 3 ml Atorvastatin Calcium (Lipitor) 20 mg PO QHS [facility] Last Admin: 11/03/18 22:03 Dose: 20 mg Budesonide (Pulmicort Aerosol) 0.5 mg INHALATION Q12H.RT [facility]1983 Last Admin: 11/04/18 06:50 Dose: 0.5 mg Docusate Sodium (Colace) 200 mg PO BID PRN PRN PRN Reason: Constipation Famotidine (Pepcid) 20 mg PO BID [facility] Guaifenesin (Mucinex) 1,200 mg PO BID [facility] Last Admin: 11/03/18 22:04 Dose: Not Given Heparin Sodium (Beef Lung) () 50 units IV UD PRN PRN Reason: HEPARIN FLUSH Azithromycin 500 mg/ Dextrose 255 mls @ 250 mls/hr IV Q24 [facility] Stop: 11/06/18 11:02 Ceftriaxone Sodium (Rocephin) 1 gm in 50 mls @ 100 mls/hr IV Q24H [facility] Metoprolol Tartrate (Lopressor (Beta Toñito)) 50 mg PO BID [facility] Last Admin: 11/03/18 22:03 Dose: 50 mg Ondansetron HCl (Zofran) 4 mg IV Q6H PRN PRN PRN Reason: Nausea Oxycodone HCl (Oxyir) 5 mg PO Q4H PRN PRN PRN Reason: Moderate Pain (pain scale 4-5) Pantoprazole Sodium (Protonix) 20 mg PO DAILY GABRIEL Sodium Chloride () 10 ml IV UD PRN PRN Reason: VAD FLUSH Last Admin: 11/04/18 05:21 Dose: 10 ml Medical Necessity - Tobacco Use Smoking Status: Former smoker Assessment/Plan All Active Problems (Last Updated 11/04/18 @ 11:05 by Juan Carlos Plummer MD) Dyspnea (Acute) CAP (community acquired pneumonia) (Acute) Acute bacterial sinusitis (Acute) Chemotherapy management, encounter for (Resolved) Electrolyte imbalance (Acute) Encounter for immunotherapy (Acute) Pleural effusion (Acute) Encounter for fitting and adjustment of vascular catheter (Acute) Educational circumstance (Acute) H/O hernia repair (Resolved) Hemoptysis (Acute) Pneumonia (Acute) This is a 67-year-old gentleman with diagnosis of NSCLC, 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 Patient also had low-grade fever at home. Patient has worsening of cough and brings up clear sputum. Patient also had thoracocentesis in March 2018 which was negative for malignant cells. Patient had first chemotherapy and radiotherapy, started in August [address] Plummer and was supposed begin consolidation immunotherapy on 11/04/2018; Durvalumab. patient has a history of COPD, as per PFT in January 2018 which showed partially reversible very severe large airway obstructive ventilatory defect associated with air trapping and reduction in diffusing capacity. He has a history of smoking of 2 and half packs for 20 years quit in 2009 1. Large right-sided pleural effusion with history of squamous cell lung cancer; suspicion of possible malignant effusion: Patient is being admitted PCU. Discussed with instructional technology specialist and consult requested. Make the patient n.p.o. for ultrasound-guided thoracocentesis. No anticoagulant. Oncologist is already been consulted. 2. SIRS (fever, hypoxia) with right lower lobe community-acquired pneumonia: CT chest done in the ER reviewed. It shows large right-sided pleural effusion with right lower lobe consolidation and underlying atelectasis: Started on IV Rocephin and Zithromax. Pneumonia work-up including respiratory panel, blood cultures x2, sputum culture. BiPAP if patient gets into respiratory distress. 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 Patient does not seem to be in COPD exacerbation. Other comorbidities include hypertension, dyslipidemia, anemia of chronic disease: Home medication reconciliation done. Due to prophylaxis: Hold Lovenox today for the procedure as mentioned above. Code Visit Inpatient E&M: 85627 [facility] Hosp L3
--- NOTE | 2018-11-04 08:05 | PN_ITS ---
Patient Problems: Active and Suspected Problems (Last Updated 11/04/18 @ 11:05 by Juan Carlos Plummer MD) Dyspnea (Acute) Pleural effusion (Acute) Subjective: This is a 67-year-old gentleman with diagnosis of NSCLC, squamous cell cancer diagnosed in December 2017 by EBUS with transbronchial needle aspiration of fungating obstructing mass occupying the orifice of right middle and right lower lobe rhonchi and right hilar lesion. Patient also had thoracocentesis in March 2018 which was negative for malignant cells. Patient had first chemotherapy and radiotherapy, started in August [address] Plummer and was supposed begin consolidation immunotherapy on 11/04/2018; Durvalumab. Patient is getting progressively short of breath for last few weeks but more since 3-4 days, with the dyspnea at rest and very difficult to do activities of daily living. Patient also had low-grade fever at home. Patient has worsening of cough and brings up clear sputum. Of note, patient has a history of COPD, as per PFT in January 2018 which showed partially reversible very severe large airway obstructive ventilatory defect associated with air trapping and reduction in diffusing capacity. He has a history of smoking of 2 and half packs for 20 years quit in 2009 Vitals/I&O's: Vital Signs Temp Pulse Resp BP Pulse Ox 98.8 F 85 16 123/73 H 94 11/04/18 03:51 11/04/18 06:50 11/04/18 06:50 11/04/18 03:51 11/04/18 06:50 Oxygen Flow Rate (L/min) 2 Oxygen Delivery Method Nasal Cannula Weight: 194 lb 10.691 oz Body Mass Index (BMI) 28.7 Intake and Output for Last 24 Hours 11/02/18 11/03/18 11/04/18 23:59 23:59 23:59 Intake Total 497 / 497 696 / 696 Balance 497 / 497 696 / 696 General: Alert, Oriented x3, Cooperative, - - Short of breath HEENT: Atraumatic, PERRLA, EOMI, Normocephalic Neck: Supple, No JVD, Negative Carotid Bruits Lungs: Diminished - Air entry is diminished below fifth intercostal space on the right side stony dullness found. On fifth right intercostal space low, Short of Breath, - - Right subclavian vein [employer]iPort Cardiovascular: Regular rate, Regular Rhythm, Normal S1, Normal S2, No murmurs Abdomen: Bowel Sounds Present, Soft, Non Tender, Non-Distended Extremities: No edema, Capillary Refill Less than 3 Seconds Skin: No rashes, No breakdown Musculoskeletal: No Tenderness to Palpation of Joints or Extremities, Arthritic Changes, Muscle Wasting Neurological: Cranial nerves II-XII grossly intact Psych/Mental Status: Normal Affect, Appropriate Laboratory Results 11/03/18 17:45: WBC 5.3, RBC 4.10 L, Hgb 11.8 L, Hct 36.9 L, MCV 90.0, MCH 28.8, MCHC 32.0, RDW 13.8, RDW Differential 45.6 H, Plt Count 169, MPV 8.5, Immature Gran % (Auto) 0.400, Neut % (Auto) 70.9 H, Lymph % (Auto) 12.8 L, [place] % (Auto) 14.7 H, Eos % (Auto) 0.8, Baso % (Auto) 0.4, Absolute Neuts (auto) 3.8, Absolute Lymphs (auto) 0.68 L, Total Counted Not Reportable 11/03/18 17:45: Sodium 130 L, Potassium 3.8, Chloride 96 L, Carbon Dioxide 30.0, Anion Gap 4 L, BUN 15, Creatinine 0.95, Estim Creat Clear Calc 75.45, Est GFR (MDRD) Af Amer 101, Est GFR (MDRD) Non-Af 84, BUN/Creatinine Ratio 15.8, Glucose 132 H, Calcium 8.7 11/03/18 19:20: Urine Color Yellow, Urine Clarity Sl Cldy, Urine pH 8.0, Ur Specific [place] 1.010, Urine Protein Negative, Urine Glucose (UA) Normal, Urine Ketones Negative, Urine Occult Blood 10 H, Urine Nitrite Negative, Urine Bilirubin Negative, Urine Urobilinogen Normal, Ur Leukocyte Esterase Negative, Urine RBC 0-5 SEEN, Urine WBC 0 SEEN, Ur Squamous Epith Cells 0-5 SEEN, Urine Bacteria 0 SEEN, Urine Mucus 0 SEEN 11/04/18 05:20: Sodium 135 L, Potassium 4.0, Chloride 97 L, Carbon Dioxide 32.0, Anion Gap 6, BUN 12, Creatinine 0.87, Estim Creat Clear Calc 82.39, Est GFR (MDRD) Af Amer 112, Est GFR (MDRD) Non-Af 93, BUN/Creatinine Ratio 13.8, Glucose 97, Calcium 8.6 11/04/18 05:20: WBC 4.9, RBC 4.13 L, Hgb 11.8 L, Hct 37.2 L, MCV 90.1, MCH 28.6, MCHC 31.7 L, RDW 13.9, RDW Differential 44.7 H, Plt Count 195, MPV 7.9 11/04/18 05:20: PT 13.8, INR 1.1 Current Medications Acetaminophen (Tylenol) 650 mg PO Q6H PRN PRN PRN Reason: Pain or Fever Last Admin: 11/03/18 22:03 Dose: 650 mg Albuterol Sulfate (Ventolin Aerosols) 2.5 mg INHALATION Q4H PRN PRN Reason: shortness of breath or wheezin Albuterol/Ipratropium (Duoneb) 3 ml INHALATION Q6HWA.RT [facility] Last Admin: 11/04/18 06:50 Dose: 3 ml Atorvastatin Calcium (Lipitor) 20 mg PO QHS [facility] Last Admin: 11/03/18 22:03 Dose: 20 mg Budesonide (Pulmicort Aerosol) 0.5 mg INHALATION Q12H.RT [facility] Last Admin: 11/04/18 06:50 Dose: 0.5 mg Docusate Sodium (Colace) 200 mg PO BID PRN PRN PRN Reason: Constipation Famotidine (Pepcid) 20 mg PO BID [facility] Guaifenesin (Mucinex) 1,200 mg PO BID [facility] Last Admin: 11/03/18 22:04 Dose: Not Given Heparin Sodium (Beef Lung) () 50 units IV UD PRN PRN Reason: HEPARIN FLUSH Azithromycin 500 mg/ Dextrose 255 mls @ 250 mls/hr IV Q24 [facility] Stop: 11/06/18 11:02 Ceftriaxone Sodium (Rocephin) 1 gm in 50 mls @ 100 mls/hr IV Q24H [facility] Metoprolol Tartrate (Lopressor (Beta Toñito)) 50 mg PO BID [facility] Last Admin: 11/03/18 22:03 Dose: 50 mg Ondansetron HCl (Zofran) 4 mg IV Q6H PRN PRN PRN Reason: Nausea Oxycodone HCl (Oxyir) 5 mg PO Q4H PRN PRN PRN Reason: Moderate Pain (pain scale 4-5) Pantoprazole Sodium (Protonix) 20 mg PO DAILY GABRIEL Sodium Chloride () 10 ml IV UD PRN PRN Reason: VAD FLUSH Last Admin: 11/04/18 05:21 Dose: 10 ml Medical Necessity - Tobacco Use Smoking Status: Former smoker Assessment/Plan All Active Problems (Last Updated 11/04/18 @ 11:05 by Juan Carlos Plummer MD) Dyspnea (Acute) CAP (community acquired pneumonia) (Acute) Acute bacterial sinusitis (Acute) Chemotherapy management, encounter for (Resolved) Electrolyte imbalance (Acute) Encounter for immunotherapy (Acute) Pleural effusion (Acute) Encounter for fitting and adjustment of vascular catheter (Acute) Educational circumstance (Acute) H/O hernia repair (Resolved) Hemoptysis (Acute) Pneumonia (Acute) This is a 67-year-old gentleman with diagnosis of NSCLC, 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 Patient also had low-grade fever at home. Patient has worsening of cough and brings up clear sputum. Patient also had thoracocentesis in March 2018 which was negative for malignant cells. Patient had first chemotherapy and radiotherapy, started in August [address] Plummer and was supposed begin consolidation immunotherapy on 11/04/2018; Durvalumab. patient has a history of COPD, as per PFT in January 2018 which showed partially reversible very severe large airway obstructive ventilatory defect associated with air trapping and reduction in diffusing capacity. He has a history of smoking of 2 and half packs for 20 years quit in 2009 1. Large right-sided pleural effusion with history of squamous cell lung cancer; suspicion of possible malignant effusion: Patient is being admitted PCU. Discussed with devops developer and consult requested. Make the patient n.p.o. for ultrasound-guided thoracocentesis. No anticoagulant. Oncologist is already been consulted. 2. SIRS (fever, hypoxia) with right lower lobe community-acquired pneumonia: CT chest done in the ER reviewed. It shows large right-sided pleural effusion with right lower lobe consolidation and underlying atelectasis: Started on IV Rocephin and Zithromax. Pneumonia work-up including respiratory panel, blood cultures x2, sputum culture. BiPAP if patient gets into respiratory distress. 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 Patient does not seem to be in COPD exacerbation. Other comorbidities include hypertension, dyslipidemia, anemia of chronic disease: Home medication reconciliation done. Due to prophylaxis: Hold Lovenox today for the procedure as mentioned above. Code Visit Inpatient E&M: [id number] [facility] Hosp L3
[2018-11-04] MEDS: guaiFENesin 1,200 MG Tablet 1200 MG PO ×2 (09:15→22:09)
[2018-11-04] MEDS: Metoprolol Tartrate 50 MG Tablet PO ×2 (09:15→22:09)
[2018-11-04] MEDS: Pantoprazole Sodium 20 MG Tablet PO (09:15)
[2018-11-04] MEDS: Famotidine 20 MG Tablet PO ×2 (09:18→22:10)
[2018-11-04 09:29] LABS: ALB/GLOB Ratio 0.8 RATIO (0.9-2.4); LDH 208 U/L (87-241); Protein, Total 7.1 g/dL (6.4-8.2)
[2018-11-04] MEDS: Ceftriaxone 1 GM/50 ML BAG IV (09:30)
--- NOTE | 2018-11-04 11:03 | CON.PCM_ITS ---
- Problem List (1) Primary cancer of right middle lobe of lung Status: Chronic (2) Pleural effusion, right Status: Chronic Comment: March 2018, negative cytology (3) Dyspnea Status: Acute Consult Referring Physician: Hospitalist service Consult Results: Lung cancer with worsening right pleural effusion Subjective Date of Service:: 11/04/18 Chief Complaint: dyspnea History of Present Illness: Patient is a 67-year-old male, ex-smoker, with underlying severe COPD and treated for stage IIIA (T4, and X, M0) non-small cell lung cancer of the right middle lobe with combined modality therapy (external beam radiation therapy concomitant with carbotaxol, followed by 2 cycles of consolidation chemotherapy) March through May 2018 and has been on maintenance immune therapy with Durvalumab since August 2018. At initial presentation he was noted to have a right pleural effusion that was not PET avid and had a negative fluid cytology March 2018. The patient was hospitalized with progressively increasing dyspnea over the course of the past 2 weeks, no fever and has had some intermittent dull aching pain in the right chest wall. A CT scan of the chest showed no evidence of pulmonary embolism, stable abnormalities in the right lung in the treatment field but an increasing right pleural effusion. Past Medical History: Chronic Problems (Last Updated 11/04/18 @ 11:05 by Juan Carlos Plummer MD) Immunotherapy encounter (Chronic) Non-small cell lung cancer (Chronic) Anemia (Chronic) Pleural effusion, right (Chronic) March 2018, negative cytology Primary cancer of right middle lobe of lung (Chronic) Stage 4 very severe COPD by GOLD classification (Chronic) Tobacco abuse, in remission (Chronic) Hypertension (Chronic) Hyperlipidemia (Chronic) Past Medical/Surgical History: Past Medical History - Most Recent Inpatient Visit Past Medical History Start: 11/03/18 20:36 Text: Status: Complete Freq: ONCE Protocol: Document 11/03/18 21:29 ERNESTO (Rec: 11/03/18 21:32 ERNESTO [id number]) BMI Required to complete PMH What is Patient's BMI 28.7 Past Medical History Unable History Recalled Yes Query Text:Pt Unable/Family Not Present Neurologic Medical History Hx Stroke/TIA No Hx Dementia/Alzheimer's No Hx Parkinson's Disease No Hx Seizures No Hx Multiple Sclerosis No Hx Migraines No Cardiac Medical History VTE Present on Admission No Hx of Deep Vein Thrombosis/VTE/PE No Hx Hypertension Yes Hx Chest Pain/Angina No Hx Heart Attack No Hx Cardiac Surgery/Stents/Etc. No Hx Heart Failure No Hx Pacemaker/AICD No Hx Irregular Heartbeat and/or Afib No Hx Anticoagulant Therapy No Query Text:(Coumadin, Aspirin, Plavix, Xarelto, etc.) Hx Pain in Legs when Walking/Leg Cramps No Respiratory Medical History Hx COPD Yes Hx Emphysema No Hx Smoking Yes Smoking Status Former smoker Hx Smoking Cessation Counseling No: October 2011 Hx Smoking Exposure No Hx Tobacco Use in last 12 months No Hx of Pipe Smoking No Hx of Cigar Smoking No Hx Sleep Apnea No Do you snore loudly (louder than talking Yes or can be heard through closed doors)? Do you often feel tired/ fatigued/ No sleepy during daytime? Has anyone observed you stop breathing No during sleep? STOP Results Positive GI Medical History Hx Ulcer No Hx Hepatitis No Hx Cirrhosis No Hx GI Bleed No Hx Unplanned Weight Loss No Genitourinary Medical History Indwelling Catheter in Place on Arrival/ No Admission Hx Renal Disease No Hx Dialysis No Musculoskeletal History Hx Arthritis No Hx Rheumatoid Arthritis No Endocrine Medical History Hx Diabetes No Hx Thyroid Disease No Hematologic Medical History Hx of Blood Transfusion No Hx of Transfusion in last 3 Months No Ever experience any problems with No transfusion(s)? Hx of Preganancy in last 3 Months N/A Nurse Filling Out Transfusion & JMCCOLLUM Questions: Date: 11/03/18 Time: 21:31 Psycho/Social Medical History Hx Depression No Hx Anxiety No Hx Behavior Disorder No Hx Alcohol Use Yes: occ Beer Hx Substance Use No Other Medical History Hx Blood Disorders No Hx Anemia No Hx Cancer Yes: LUNG Hx Drug Resistant Organism No Wound/Pressure Injury Present on Arrival No /Admission Query Text:If yes, chart assessment in Shift/Clinical Findings Central Line/PICC/VAD Present on Arrival Yes /Admission Antibiotics within last 7 days? No Methicillin Resistant Staphylococcus aureus Screening Active MRSA No Risk for Readmission Number of Risk Factors 3 At Risk for Readmission Patient is At Risk For Readmission Patient is eligible for Call Back Y Past Medical History (Last Reviewed 10/21/18 @ 09:52 by Najma Castro) Primary cancer of right middle lobe of lung (Chronic) Stage 4 very severe COPD by GOLD classification (Chronic) Tobacco abuse, in remission (Chronic) Educational circumstance (Acute) Hypertension (Chronic) Hyperlipidemia (Chronic) Hemoptysis (Acute) Pneumonia (Acute) Past Surgical History (Last Reviewed 10/21/18 @ 09:52 by Najma Castro) H/O hernia repair (Resolved) EBUS (Resolved) Maternal Family History: Family History (Last Reviewed 10/21/18 @ 09:52 by Najma Castro) Father Myocardial infarction Hypertension Mother Pneumonia Family History: - - no malignancy. from CHF in her 80's Paternal Family History: Family History (Last Reviewed 10/21/18 @ 09:52 by Najma Castro) Father Myocardial infarction Hypertension Mother Pneumonia Family History: Heart Disease, - - from [place] in his 70's, no malignancies - Social History Smoking Status: Former smoker Allergies/Adverse Reactions: Allergy/AdvReac Type Severity Reaction Status Date / Time No Known Allergies Allergy Verified 11/03/18 17:40 Review of Systems Constitutional:: Reports: Weakness, Fatigue. Denies: Fever, Sweats, Weight loss, Appetite change, Chills Cardiovascular:: Reports: Chest pain - Intermittent right sided dull pain, Dyspnea on exertion, Shortness of breath. Denies: Palpitations, Orthopnea, PND Respiratory: Reports: Cough - Chronic unchanged, Shortness of Breath - Progressively increasing over the past 2 weeks, Sputum production - Clear. Denies: Hemoptysis, Wheezing Gastrointestinal:: Denies: Abdominal pain, Nausea, Vomiting, Diarrhea, Constipation, Hematochezia Genitourinary: Denies: Dysuria, Hematuria, 15, Flank pain Musculoskeletal:: Denies: Back pain, Myalgia, Arthralgia Skin: Denies: Rash, Skin Changes, Wounds Neurological:: Denies: Headache, Dizziness, Visual changes, Tinnitus, Hearing loss Psychiatric: Denies: Anxiety, Depression, Homicidal Ideations, Suicidal Ideations Vital Signs Height 5 ft 9 in Weight: 88.3 kg Weight in Pounds 194.7 lbs BMI 29.9 Pulse Ox 93 Temperature 98.7 F Pulse Rate 89 Respiratory Rate 18 Blood Pressure 140/74 Blood Pressure Position Semi-Fowlers - Physical Exam General: Alert, Oriented x3, No apparent distress, - - ECOG 2, on oxygen HEENT: Atraumatic, PERRLA, EOMI, Normocephalic Oropharynx:: Dry mucosa Neck:: Supple, Trachea midline. Negative for: JVD, bilateral Cardiac:: Regular rate, Regular rhythm, Normal S1, Normal S2. Negative for: Murmur Lungs: Clear to auscultation, Diminished - Markedly on the right side consistent with a moderate sized pleural effusion, Excusion symmetrical. Negative for: Rhonchi, Wheezes Abdomen:: Soft, Non-tender, Non-distended. Negative for: Hepatosplenomegaly Extremities:: Negative for: Cyanosis, Edema Neurological: Neuro grossly intact Skin:: Negative for: Lesions, Rash, Petechiae, Ecchymosis Psychiatric:: Appropriate affect, Euthymic Lymphatics:: Negative for: Cervical lymphadenopathy, Supraclavicular lymphadenopathy Laboratory Data: Laboratory Tests 11/04/18 11/04/18 11/04/18 Range/Units 08:42 05:20 05:20 WBC 4.9 (4.4-11.0) K/mm3 RBC 4.13 L (4.6-6.2) M/mm3 Hgb 11.8 L (13.0-16.5) g/dl Hct 37.2 L (40-54) % MCV 90.1 (80-94) fL MCH 28.6 (27.0-32.0) pg MCHC 31.7 L (32-36) g/gl RDW 13.9 (11.6-14.6) % RDW Differential 44.7 H (35.1-43.9) fl Plt Count 195 (150-450) K/mm3 MPV 7.9 (6.2-12.0) fl Immature Gran % (Auto) (0.0-0.9) % Neut % (Auto) (47-70) % Lymph % (Auto) (19-41) % [place] % (Auto) (0-10) % Eos % (Auto) (0-5) % Baso % (Auto) (0-1) % Absolute Neuts (auto) (2.0-7.7) X10^3/uL Absolute Lymphs (auto) (0.83-4.51) X10^3/ul Total Counted PT 13.8 (11.7-14.9) SECONDS INR 1.1 Sodium (136-145) mmol/L Potassium (3.5-5.1) mmol/L Chloride (98-107) mmol/L Carbon Dioxide (21.0-32.0) mmol/L Anion Gap (5-15) BUN (7-18) mg/dL Creatinine (0.70-1.30) mg/dL Estim Creat Clear Calc ml/min Est GFR (MDRD) Af Amer (>60) mL/min Est GFR (MDRD) Non-Af (>60) mL/min BUN/Creatinine Ratio (10-20) RATIO Glucose (74-106) mg/dL Calcium (8.5-10.1) mg/dL Lactate Dehydrogenase 208 (87-241) U/L Total Protein 7.1 (6.4-8.2) g/dL Globulin 4.0 (2.2-4.2) g/dL Albumin/Globulin Ratio 0.8 L (0.9-2.4) RATIO Urine Color (Yellow) Urine Clarity (Clear) Urine pH (5.0 - 8.0) Ur Specific [place] (1.002-1.030) Urine Protein (Negative) mg/dl Urine Glucose (UA) (Normal) mg/dl Urine Ketones (Negative) mg/dl Urine Occult Blood (Negative) /ul Urine Nitrite (Negative) Urine Bilirubin (Negative) mg/dL Urine Urobilinogen (Normal) mg/dl Ur Leukocyte Esterase (Negative) /ul Urine RBC (0-5) /hpf Urine WBC (0-5) /hpf Ur Squamous Epith Cells (0-5) /hpf Urine Bacteria (None Seen) /hpf Urine Mucus (<or=2+) /hpf 3 11/04/18 11/03/18 11/03/18 Range/Units 05:20 19:20 17:45 WBC (4.4-11.0) K/mm3 RBC (4.6-6.2) M/mm3 Hgb (13.0-16.5) g/dl Hct (40-54) % MCV (80-94) fL MCH (27.0-32.0) pg MCHC (32-36) g/gl RDW (11.6-14.6) % RDW Differential (35.1-43.9) fl Plt Count (150-450) K/mm3 MPV (6.2-12.0) fl Immature Gran % (Auto) (0.0-0.9) % Neut % (Auto) (47-70) % Lymph % (Auto) (19-41) % [place] % (Auto) (0-10) % Eos % (Auto) (0-5) % Baso % (Auto) (0-1) % Absolute Neuts (auto) (2.0-7.7) X10^3/uL Absolute Lymphs (auto) (0.83-4.51) X10^3/ul Total Counted PT (11.7-14.9) SECONDS INR Sodium 135 L 130 L (136-145) mmol/L Potassium 4.0 3.8 (3.5-5.1) mmol/L Chloride 97 L 96 L (98-107) mmol/L Carbon Dioxide 32.0 30.0 (21.0-32.0) mmol/L Anion Gap 6 4 L (5-15) BUN 12 15 (7-18) mg/dL Creatinine 0.87 0.95 (0.70-1.30) mg/dL Estim Creat Clear Calc 82.39 75.45 ml/min Est GFR (MDRD) Af Amer 112 101 (>60) mL/min Est GFR (MDRD) Non-Af 93 84 (>60) mL/min BUN/Creatinine Ratio 13.8 15.8 (10-20) RATIO Glucose 97 132 H (74-106) mg/dL Calcium 8.6 8.7 (8.5-10.1) mg/dL Lactate Dehydrogenase (87-241) U/L Total Protein (6.4-8.2) g/dL Globulin (2.2-4.2) g/dL Albumin/Globulin Ratio (0.9-2.4) RATIO Urine Color Yellow (Yellow) Urine Clarity Sl Cldy (Clear) Urine pH 8.0 (5.0 - 8.0) Ur Specific [place] 1.010 (1.002-1.030) Urine Protein Negative (Negative) mg/dl Urine Glucose (UA) Normal (Normal) mg/dl Urine Ketones Negative (Negative) mg/dl Urine Occult Blood 10 H (Negative) /ul Urine Nitrite Negative (Negative) Urine Bilirubin Negative (Negative) mg/dL Urine Urobilinogen Normal (Normal) mg/dl Ur Leukocyte Esterase Negative (Negative) /ul Urine RBC 0-5 SEEN (0-5) /hpf Urine WBC 0 SEEN (0-5) /hpf Ur Squamous Epith Cells 0-5 SEEN (0-5) /hpf Urine Bacteria 0 SEEN (None Seen) /hpf Urine Mucus 0 SEEN (<or=2+) /hpf 11/03/18 Range/Units 17:45 WBC 5.3 (4.4-11.0) K/mm3 RBC 4.10 L (4.6-6.2) M/mm3 Hgb 11.8 L (13.0-16.5) g/dl Hct 36.9 L (40-54) % MCV 90.0 (80-94) fL MCH 28.8 (27.0-32.0) pg MCHC 32.0 (32-36) g/gl RDW 13.8 (11.6-14.6) % RDW Differential 45.6 H (35.1-43.9) fl Plt Count 169 (150-450) K/mm3 MPV 8.5 (6.2-12.0) fl Immature Gran % (Auto) 0.400 (0.0-0.9) % Neut % (Auto) 70.9 H (47-70) % Lymph % (Auto) 12.8 L (19-41) % [place] % (Auto) 14.7 H (0-10) % Eos % (Auto) 0.8 (0-5) % Baso % (Auto) 0.4 (0-1) % Absolute Neuts (auto) 3.8 (2.0-7.7) X10^3/uL Absolute Lymphs (auto) 0.68 L (0.83-4.51) X10^3/ul Total Counted Not Reportable PT (11.7-14.9) SECONDS INR Sodium (136-145) mmol/L Potassium (3.5-5.1) mmol/L Chloride (98-107) mmol/L Carbon Dioxide (21.0-32.0) mmol/L Anion Gap (5-15) BUN (7-18) mg/dL Creatinine (0.70-1.30) mg/dL Estim Creat Clear Calc ml/min Est GFR (MDRD) Af Amer (>60) mL/min Est GFR (MDRD) Non-Af (>60) mL/min BUN/Creatinine Ratio (10-20) RATIO Glucose (74-106) mg/dL Calcium (8.5-10.1) mg/dL Lactate Dehydrogenase (87-241) U/L Total Protein (6.4-8.2) g/dL Globulin (2.2-4.2) g/dL Albumin/Globulin Ratio (0.9-2.4) RATIO Urine Color (Yellow) Urine Clarity (Clear) Urine pH (5.0 - 8.0) Ur Specific [place] (1.002-1.030) Urine Protein (Negative) mg/dl Urine Glucose (UA) (Normal) mg/dl Urine Ketones (Negative) mg/dl Urine Occult Blood (Negative) /ul Urine Nitrite (Negative) Urine Bilirubin (Negative) mg/dL Urine Urobilinogen (Normal) mg/dl Ur Leukocyte Esterase (Negative) /ul Urine RBC (0-5) /hpf Urine WBC (0-5) /hpf Ur Squamous Epith Cells (0-5) /hpf Urine Bacteria (None Seen) /hpf Urine Mucus (<or=2+) /hpf Diagnostic Data: Diagnostic Data Chest X-Ray 11/03/18 17:15 IMPRESSION: Opacification in the inferior half of the right hemithorax suggesting likely combination of atelectasis and effusion. Infiltrate and/or recurrence of lung carcinoma cannot be excluded. Recommend further evaluation with chest CT. Left lung shows chronic interstitial changes but no superimposed acute pulmonary process Electronically Signed: Ziggy Blevins MD at 17:30 EDT , Service support , Chest CTA 11/03/18 18:27 IMPRESSION: No demonstrated PE, or thoracic aortic aneurysm, or dissection Atelectasis and consolidation in the right lower lobe. The right middle lobe mass is unchanged from the previous study. Once again noted is abrupt stenosis of the right mainstem bronchus and the pulmonary artery branch leading to the right lower lobe. Stable large pleural effusion Electronically Signed: Ziggy Blevins MD at 19:14 EDT , Service support , Assessment and Plan 67-year-old male, ex-smoker (quit 2011) with stage IIIA non-small cell lung cancer at presentation status post combined chemoradiation March through May 2018 and currently on durvalumab immunotherapy maintenance since August 2018. The pleural effusion was first noted at presentation in 2017, was not PET avid and with a negative cytology and presumed benign then. Patient presents with his increasing dyspnea and in comparison to prior scans it appears that this effusion has enlarged and likely causing his increase in dyspnea. Less likely is a COPD exacerbation, viral illness or durvalumab pneumonitis. Recommendation: 1- Diagnostic and therapeutic pleural fluid tap. 2- Reevaluate once cytology is available. 3- Durvalumab this week will be on hold. Impression and plan discussed with patient and his and Dr. Chin. Juan Carlos Plummer MD Infrastructure Director, [facility] Divisions of Medical Oncology & Hematology Department of Internal Medicine [place] [id number] This note was generated using a voice recognition system software. It may contain incorrect words, spelling, and punctuation that were not noted when reviewing the office note prior to saving. Medications: Prescriptions This Visit Medication Instructions Recorded Fluticasone/Umeclidin/Vilanter 1 puff INHALATION DAILY 11/03/18 [Trelegy Ellipta 100-62.5-25] Medications Added to Medication List This Visit Category Date Time Status Azithromycin [Zithromax] 500 mg Med 11/04/18 10:00 Active Dextrose 5% 250 ml IV Q24 Ceftriaxone [Rocephin] Med 11/04/18 09:00 Active 1 gm in 50 ml IV Q24 Docusate Sodium [Colace] Med 11/04/18 07:50 Active 200 mg PO BID PRN PRN Famotidine [Pepcid] Med 11/04/18 10:00 Active 20 mg PO BID Ondansetron [Zofran] Med 11/04/18 07:50 Active 4 mg IV Q6H PRN PRN Oxycodone [Oxyir] Med 11/04/18 07:50 Active 5 mg PO Q4H PRN PRN Pantoprazole Sodium [Protonix] Med 11/04/18 10:00 Active 20 mg PO DAILY Primary Care Provider: Semaj Hancock MD Referring Provider:
--- NOTE | 2018-11-04 14:00 | RAD_ITS ---
STUDY: X-RAY CHEST REASON FOR EXAM: Male, 67 years old. Status post right thoracentesis. TECHNIQUE: AP inspiration and expiration views. COMPARISON: Comparison is made with prior study dated November 03, 2018. FINDINGS: The patient is status post right thoracentesis. There is no evidence of pneumothorax. Residual right pleural parenchymal changes.. RAD/Chest Insp/Exp 2 View IMPRESSION: Status post right thoracentesis. There is no evidence of pneumothorax. Residual pleural parenchymal changes at the right lung base. Electronically Signed: Fish Mac, at 14:29 EDT , Service support ,
--- NOTE | 2018-11-04 14:27 | FLU_PTH ---
PATIENT: ANGEL LUIS MYRICK LOC: PCU U#:[id number] AGE/SX: 67/M ROOM: [facility] RE11/03/[address]: Dr. William Estrella MD : 1950 BED: 1 DIS: 11/06/2018 SPEC #: [id number] RECD: 11/05/18 10:44 STATUS: GIRMA REQ #: [id number] JENNY: 11/04/18 14:[address]: William Estrella DEPT: CYTOLOGY RECD BY: Aramis Avila ENTERED: 11/05/18 10:44 SP TYPE: Fluid OTHR DR: DO Dr. Semaj Miller MD Dr. Mansour Isckarus, MD Dr. Paul Nielsen, MD Tissues: THORACIC FLUID Procedures: Special Stain Group II Surgery Specimen Level IV Cytospin Fluid HEADER OPERATION: Ultrasound-guided thoracentesis PRE-OP DIAGNOSIS: Right pleural effusion TISSUE SUBMITTED: Thoracentesis fluid for cytology DIAGNOSIS CYTOLOGY Thoracentesis fluid for cytology (cytospin and cell block): Negative for malignant cells. SJ:rg 11/06/18 COMMENT Please make reference to previous specimens ([id number]) EBUS aspiration #4, 5 and 6 with diagnosis of malignant cells present derived from non-small cell carcinoma and hilar mass, TBNA with diagnosis of malignant cells present derived from non-small cell carcinoma, favor squamous cell carcinoma and ([id number]) RML, endobronchial biopsy with diagnosis of non-small cell carcinoma, favor squamous cell carcinoma and ([id number]) thoracentesis fluid for cytology with diagnosis of negative for malignant cells. CYTOLOGY STUDY Slides are reviewed. CYTOLOGY GROSS Received is 90 ml of yellow cloudy fluid labeled with the patient's name and and designated per the requisition as thoracentesis. Submitted for cytology preparation including cell block. / 11/05/18 TC:5 CPT: 57130, 09881
--- NOTE | 2018-11-04 14:55 | CASEMGMT ---
Addendum entered by Kalyan Merrill 11/04/18 16:05: Reviewed LONG form with pt. Denies having any questions. Form signed by pt, copy made and placed on chart, and pt given original. Temo GARCIA RN, CM Original Note: RN [employer] CM to room to meet with patient for initial transition planning/care coordination assessment. ANGEL TERESA introduced self and role at [facility]. Pt voices understanding and consents to assessment at this time. Pt resting in bed in no distress at this time. Pt is A/O at this time and answers all questions appropriately. Care providers, pharmacy, and demographics verified/updated at this time. PCP: Karissa Specialists: Giuseppe Plummer Preferred Pharmacy: [facility] Insurance: [employer] Prescription Benefit: Yes Living Will/HPOA: Has both LW and HCPOA who is his , Mary Gautam LNOK: Living Arrangements: Lives in one-story home w/his . 3 steps to enter. Denies difficulty with stairs. States is independent with ADL's. cooks. Both share home mgmnt taks. Transportation: Pt states drives self and states no transportation concerns at this time. can drive him home on d/c. DME: Denies using any DME and denies needs. No home O2. No preference of DME company. HHC/SNF: No history of either. Denies needs for HHC and no needs identified. Pt wishes to return home and states has no concerns with going home at time of discharge.CM to follow for any home oxygen needs or any further discharge planning/needs. Pt voices no further concerns/needs at this time. Advised pt to ask for CM if any further questions/concerns/needs arise. Voices understanding. PLAN: Home with spousal support and discharge plans in place. Temo GARCIA RN, CM
[2018-11-04 15:35] LABS: Cytology, Body Fluid / CSF SEE PATHOLOGY REPORT
[2018-11-04 16:34] LABS: LDH,Body Fluid 202 Units/l (Not Establ.); Protein, Body Fluid 5.3 g/dL (Not Establ.)
[2018-11-04] MEDS: Acetaminophen 325 MG Tablet 650 MG PO (18:22)
[2018-11-04 19:25] LABS: Body Fluid Mononuclear WBC # 0.721 10^3/uL; Body Fluid Mononuclear WBC % 83.9 %; Body Fluid Polynuclear WBC # 0.138 10^3/uL; Body Fluid Polynuclear WBC % 16.1 %; Body Fluid Total Cells Counted 1.004 10^3/ul; White Blood Count/Body Fluid 0.859 10^3/uL
[2018-11-04 20:52] LABS: Lymphocytes 48 %; Macrophages 17 %; Monocytes 2 %; Neutrophil (Segs) 14 %
[2018-11-04 20:53] LABS: Mesothelial Cells 19 %
[2018-11-04 20:55] LABS: Auto B Fluid Analyzer BKGD Ct COUNTS W/IN LIMITS (W/IN LIMITS)
[2018-11-04 20:56] LABS: Appearance/Body Fluid SL CLDY; Body Fluid QC Type(s) BF3Q; Color/Body Fluid YELLOW; Source- Body Fluid THORACENTESIS
[2018-11-04] MEDS: oxyCODONE 5 MG Tablet PO (22:09)
[2018-11-04] MEDS: Atorvastatin Calcium 20 MG Tablet PO (22:10)
[2018-11-05] VITALS (14 sets, daily range): BP systolic 105–134; BP diastolic 64–81; PULSE 70–106; RESP 16–20; TEMP 36.4–37; O2SAT 87–97
--- NOTE | 2018-11-05 00:30 | NURSING ---
This nurse took over care of this patient at this time. Report received from Christelle Zepeda RN at this time.
--- NOTE | 2018-11-05 01:45 | NURSING ---
This nurse no longer taking care of this patient. Care being taken back over to Christelle Zepeda RN.
[2018-11-05] MEDS: Budesonide Respules 0.5 MG/2 ML AMPUL.NEB. INHALATION ×2 (06:43→19:22)
[2018-11-05] MEDS: Ipratropium/Albuterol Sulfate 3 ML AMPUL.NEB INHALATION ×3 (06:43→19:22)
--- NOTE | 2018-11-05 07:28 | PCM.PN.PUL ---
Patient Problems: Active and Suspected Problems (Last Updated 11/04/18 @ 11:05 by Juan Carlos Plummer MD) Dyspnea (Acute) Pleural effusion (Acute) Subjective: The patient was seen and examined at the bedside this morning. Events from the last 24 hours have been reviewed. The patient is currently afebrile, hemodynamically stable and maintaining appropriate oxygen saturations on 3 L/min via nasal cannula. The patient underwent successful right-sided ultrasound-guided thoracentesis yesterday with 900 cc of carolin-colored fluid removed. The patient's pleural fluid analysis was consistent with that of an exudate. While he does report some interval improvement in his breathing quality following the thoracentesis, he does report some residual right-sided thoracic pain. He is interested in staying in the hospital for an additional night. Objective: The patient's most recent lab work, culture data and imaging studies have all been personally reviewed. - Physical Exam General: Alert, Oriented x3, Cooperative, No apparent distress HEENT: Atraumatic, PERRLA, Normocephalic Oral: No Gingival or Mucosal Lesions/ Ulcerations Neck: Supple, No Nodes, Trachea Midline Lungs: Diminished Cardiovascular: Regular rate, Regular Rhythm, Normal S1, Normal S2, No murmurs Abdomen: Bowel Sounds Present, Soft, Non Tender Extremities: No clubbing, No cyanosis, No edema Skin: No breakdown Musculoskeletal: No Tenderness to Palpation of Joints or Extremities, No Muscle Wasting Lymphatic: No Cervical, Supraclavicular, or Inguinal Adenopathy Neurological: Cranial nerves II-XII grossly intact, Neuro grossly intact Psych/Mental Status: Normal Affect, Appropriate Vital Signs Temp Pulse Resp BP Pulse Ox 97.6 F L 70 20 H 113/74 95 11/05/18 03:00 11/05/18 03:00 11/05/18 03:00 11/05/18 03:00 11/05/18 03:00 Oxygen Flow Rate (L/min) [3] 2 Oxygen Flow Rate (L/min) [2] 2 Oxygen Flow Rate (L/min) [1 ( 2 Initial Baseline)] Oxygen Flow Rate (L/min) 3 Oxygen Delivery Method [4] Nasal Cannula Oxygen Delivery Method [3] Nasal Cannula Oxygen Delivery Method [2] Nasal Cannula Oxygen Delivery Method [1 ( Nasal Cannula Initial Baseline)] Oxygen Delivery Method Nasal Cannula Weight: 194 lb 10.691 oz Body Mass Index (BMI) 28.7 Intake and Output for Last 24 Hours 11/03/18 11/04/18 11/05/18 23:59 23:59 23:59 Intake Total 497 / 497 2102 / 2102 360 / 360 Balance 497 / 497 2102 / 2102 360 / 360 Microbiology Past 72 Hours 11/04/18 10:40 Respiratory Panel (PCR) - Final Mucosa - Nasopharyngeal 11/04/18 16:50 Streptococcus pneumoniae Antigen (M - Final Interface Orders 11/04/18 16:50 Legionella Antigen - Final Urine, Clean Catch Laboratory Tests Past 24 Hrs 11/04/18 11/04/18 11/04/18 08:42 13:45 13:45 Lactate Dehydrogenase 208 Total Protein 7.1 Globulin 4.0 Albumin/Globulin Ratio 0.8 L Fluid Source THORACENTESIS Fluid Color YELLOW Fluid Appearance SL CLDY Fluid WBC 0.859 Fluid RBC 0.40266 Fluid Tot Cell Count 1.004 Fld Polynuclear WBCs # 0.138 Fld Polynuclear WBCs % 16.1 Fluid Mononuclear WBCs 0.721 Fld Mononuclear WBCs % 83.9 Fluid Neutrophils 14 Fluid Lymphocytes 48 Fluid Monocytes 2 Fluid Macrophages 17 Fld Mesothelial Cells 19 Fl Pathologist Comment May follow Fluid Glucose 119 H Fluid Total Protein 5.3 Fluid LDH 202 Fluid Comment 2 SEE COMMENT Miscellaneous Cytology 11/04/18 13:45 Lactate Dehydrogenase Total Protein Globulin Albumin/Globulin Ratio Fluid Source Fluid Color Fluid Appearance Fluid WBC Fluid RBC Fluid Tot Cell Count Fld Polynuclear WBCs # Fld Polynuclear WBCs % Fluid Mononuclear WBCs Fld Mononuclear WBCs % Fluid Neutrophils Fluid Lymphocytes Fluid Monocytes Fluid Macrophages Fld Mesothelial Cells Fl Pathologist Comment Fluid Glucose Fluid Total Protein Fluid LDH Fluid Comment 2 Miscellaneous Cytology Pending Clinical Impression(s) from Imaging Studies Chest X-Ray 11/03/18 17:15 IMPRESSION: Opacification in the inferior half of the right hemithorax suggesting likely combination of atelectasis and effusion. Infiltrate and/or recurrence of lung carcinoma cannot be excluded. Recommend further evaluation with chest CT. Left lung shows chronic interstitial changes but no superimposed acute pulmonary process Electronically Signed: Ziggy Blevins MD at 17:30 EDT , Service support , Chest CTA 11/03/18 18:27 IMPRESSION: No demonstrated PE, or thoracic aortic aneurysm, or dissection Atelectasis and consolidation in the right lower lobe. The right middle lobe mass is unchanged from the previous study. Once again noted is abrupt stenosis of the right mainstem bronchus and the pulmonary artery branch leading to the right lower lobe. Stable large pleural effusion Electronically Signed: Ziggy Blevins MD at 19:14 EDT , Service support , Thoracentesis Ultrasound 11/04/18 07:48 IMPRESSION: Ultrasound-guided right thoracentesis. Electronically Signed: Fish Mac, at 14:35 EDT , Service support , Chest X-Ray 11/04/18 14:00 IMPRESSION: Status post right thoracentesis. There is no evidence of pneumothorax. Residual pleural parenchymal changes at the right lung base. Electronically Signed: Fish Mac, at 14:29 EDT , Service support , Medical Necessity - Tobacco Use Smoking Status: Former smoker Assessment/Plan All Active Problems (Last Updated 11/04/18 @ 11:05 by Juan Carlos Plummer MD) Dyspnea (Acute) CAP (community acquired pneumonia) (Acute) Acute bacterial sinusitis (Acute) Chemotherapy management, encounter for (Resolved) Electrolyte imbalance (Acute) Encounter for immunotherapy (Acute) Pleural effusion (Acute) Encounter for fitting and adjustment of vascular catheter (Acute) Educational circumstance (Acute) H/O hernia repair (Resolved) Hemoptysis (Acute) Pneumonia (Acute) RECOMMENDATIONS: 1. Await pleural fluid cytology results. 2. Sputum culture is pending. 3. Recommend empiric treatment course of antimicrobials. The patient can likely be transitioned to Levaquin at this time. 4. Continue bronchodilators and budesonide as ordered. 5. Continue to wean supplemental oxygen as tolerated. IMPRESSIONS: 1. Right-sided pleural effusion/history of non-small cell lung cancer The patient's chest imaging studies were personally reviewed. The patient does have a progressive right-sided pleural effusion, which appears to have a large since prior CT in July. The patient did undergo an ultrasound-guided thoracentesis in 2017, at which time, the patient's pleural fluid studies were negative for malignancy. In light of the patient's respiratory decline, ultrasound-guided thoracentesis was completed on November 04. Just under 1 L of fluid was removed from the patient's right hemithorax. Pleural fluid analysis is consistent with that of an exudate. Sputum culture and pleural fluid cytology are still pending. The patient remains on empiric antimicrobial coverage in the interim. Continue to wean supplemental oxygen to maintain saturations at or above 90%. Encourage incentive spirometer use to aid in alveolar recruitment following thoracentesis. 2. Stage IV COPD Continue scheduled bronchodilators and budesonide. Resume Trelegy at discharge. This note was generated with [employer] dictation software. It may contain incorrect words, spelling, and punctuation that were not noted in checking the note before signing. Code Visit Inpatient E&M: 61424 Subs Hosp L3
[2018-11-05] MEDS: Acetaminophen 325 MG Tablet 650 MG PO ×2 (07:29→14:32)
--- NOTE | 2018-11-05 07:32 | PN_ITS ---
Patient Problems: Active and Suspected Problems (Last Updated 11/04/18 @ 11:05 by Juan Carlos Plummer MD) Dyspnea (Acute) Pleural effusion (Acute) Subjective: The patient was seen and examined at the bedside this morning. Events from the last 24 hours have been reviewed. The patient is currently afebrile, hemodynamically stable and maintaining appropriate oxygen saturations on 3 L/min via nasal cannula. The patient underwent successful right-sided ultrasound- guided thoracentesis yesterday with 900 cc of carolin-colored fluid removed. The patient's pleural fluid analysis was consistent with that of an exudate. While he does report some interval improvement in his breathing quality following the thoracentesis, he does report some residual right-sided thoracic pain. He is interested in staying in the hospital for an additional night. Objective: The patient's most recent lab work, culture data and imaging studies have all been personally reviewed. - Physical Exam General: Alert, Oriented x3, Cooperative, No apparent distress HEENT: Atraumatic, PERRLA, Normocephalic Oral: No Gingival or Mucosal Lesions/ Ulcerations Neck: Supple, No Nodes, Trachea Midline Lungs: Diminished Cardiovascular: Regular rate, Regular Rhythm, Normal S1, Normal S2, No murmurs Abdomen: Bowel Sounds Present, Soft, Non Tender Extremities: No clubbing, No cyanosis, No edema Skin: No breakdown Musculoskeletal: No Tenderness to Palpation of Joints or Extremities, No Muscle Wasting Lymphatic: No Cervical, Supraclavicular, or Inguinal Adenopathy Neurological: Cranial nerves II-XII grossly intact, Neuro grossly intact Psych/Mental Status: Normal Affect, Appropriate Vital Signs Temp Pulse Resp BP Pulse Ox 97.6 F L 70 20 H 113/74 95 11/05/18 03:00 11/05/18 03:00 11/05/18 03:00 11/05/18 03:00 11/05/18 03:00 Oxygen Flow Rate (L/min) [3] 2 Oxygen Flow Rate (L/min) [2] 2 Oxygen Flow Rate (L/min) [1 ( 2 Initial Baseline)] Oxygen Flow Rate (L/min) 3 Oxygen Delivery Method [4] Nasal Cannula Oxygen Delivery Method [3] Nasal Cannula Oxygen Delivery Method [2] Nasal Cannula Oxygen Delivery Method [1 ( Nasal Cannula Initial Baseline)] Oxygen Delivery Method Nasal Cannula Weight: 194 lb 10.691 oz Body Mass Index (BMI) 28.7 Intake and Output for Last 24 Hours 11/03/18 11/04/18 11/05/18 23:59 23:59 23:59 Intake Total 497 / 497 2102 / 2102 360 / 360 Balance 497 / 497 2102 / 2102 360 / 360 Microbiology Past 72 Hours 11/04/18 10:40 Respiratory Panel (PCR) - Final Mucosa - Nasopharyngeal 11/04/18 16:50 Streptococcus pneumoniae Antigen (M - Final Interface Orders 11/04/18 16:50 Legionella Antigen - Final Urine, Clean Catch Laboratory Tests Past 24 Hrs 11/04/18 11/04/18 11/04/18 08:42 13:45 13:45 Lactate Dehydrogenase 208 Total Protein 7.1 Globulin 4.0 Albumin/Globulin Ratio 0.8 L Fluid Source THORACENTESIS Fluid Color YELLOW Fluid Appearance SL CLDY Fluid WBC 0.859 Fluid RBC 0.06584 Fluid Tot Cell Count 1.004 Fld Polynuclear WBCs # 0.138 Fld Polynuclear WBCs % 16.1 Fluid Mononuclear WBCs 0.721 Fld Mononuclear WBCs % 83.9 Fluid Neutrophils 14 Fluid Lymphocytes 48 Fluid Monocytes 2 Fluid Macrophages 17 Fld Mesothelial Cells 19 Fl Pathologist Comment May follow Fluid Glucose 119 H Fluid Total Protein 5.3 Fluid LDH 202 Fluid Comment 2 SEE COMMENT Miscellaneous Cytology 11/04/18 13:45 Lactate Dehydrogenase Total Protein Globulin Albumin/Globulin Ratio Fluid Source Fluid Color Fluid Appearance Fluid WBC Fluid RBC Fluid Tot Cell Count Fld Polynuclear WBCs # Fld Polynuclear WBCs % Fluid Mononuclear WBCs Fld Mononuclear WBCs % Fluid Neutrophils Fluid Lymphocytes Fluid Monocytes Fluid Macrophages Fld Mesothelial Cells Fl Pathologist Comment Fluid Glucose Fluid Total Protein Fluid LDH Fluid Comment 2 Miscellaneous Cytology Pending Clinical Impression(s) from Imaging Studies Chest X-Ray 11/03/18 17:15 IMPRESSION: Opacification in the inferior half of the right hemithorax suggesting likely combination of atelectasis and effusion. Infiltrate and/or recurrence of lung carcinoma cannot be excluded. Recommend further evaluation with chest CT. Left lung shows chronic interstitial changes but no superimposed acute pulmonary process Electronically Signed: Ziggy Blevins MD at 17:30 EDT , Service support , Chest CTA 11/03/18 18:27 IMPRESSION: No demonstrated PE, or thoracic aortic aneurysm, or dissection Atelectasis and consolidation in the right lower lobe. The right middle lobe mass is unchanged from the previous study. Once again noted is abrupt stenosis of the right mainstem bronchus and the pulmonary artery branch leading to the right lower lobe. Stable large pleural effusion Electronically Signed: Ziggy Blevins MD at 19:14 EDT , Service support , Thoracentesis Ultrasound 11/04/18 07:48 IMPRESSION: Ultrasound-guided right thoracentesis. Electronically Signed: Fish Mac, at 14:35 EDT , Service support , Chest X-Ray 11/04/18 14:00 IMPRESSION: Status post right thoracentesis. There is no evidence of pneumothorax. Residual pleural parenchymal changes at the right lung base. Electronically Signed: Fish Mac, at 14:29 EDT , Service support , Medical Necessity - Tobacco Use Smoking Status: Former smoker Assessment/Plan All Active Problems (Last Updated 11/04/18 @ 11:05 by Juan Carlos Plummer MD) Dyspnea (Acute) CAP (community acquired pneumonia) (Acute) Acute bacterial sinusitis (Acute) Chemotherapy management, encounter for (Resolved) Electrolyte imbalance (Acute) Encounter for immunotherapy (Acute) Pleural effusion (Acute) Encounter for fitting and adjustment of vascular catheter (Acute) Educational circumstance (Acute) H/O hernia repair (Resolved) Hemoptysis (Acute) Pneumonia (Acute) RECOMMENDATIONS: 1. Await pleural fluid cytology results. 2. Sputum culture is pending. 3. Recommend empiric treatment course of antimicrobials. The patient can likely be transitioned to Levaquin at this time. 4. Continue bronchodilators and budesonide as ordered. 5. Continue to wean supplemental oxygen as tolerated. IMPRESSIONS: 1. Right-sided pleural effusion/history of non-small cell lung cancer The patient's chest imaging studies were personally reviewed. The patient does have a progressive right-sided pleural effusion, which appears to have a large since prior CT in July. The patient did undergo an ultrasound-guided thoracentesis in 2017, at which time, the patient's pleural fluid studies were negative for malignancy. In light of the patient's respiratory decline, ultrasound-guided thoracentesis was completed on November 04. Just under 1 L of fluid was removed from the patient's right hemithorax. Pleural fluid analysis is consistent with that of an exudate. Sputum culture and pleural fluid cytology are still pending. The patient remains on empiric antimicrobial coverage in the interim. Continue to wean supplemental oxygen to maintain saturations at or above 90%. Encourage incentive spirometer use to aid in alveolar recruitment following thoracentesis. 2. Stage IV COPD Continue scheduled bronchodilators and budesonide. Resume Trelegy at discharge. This note was generated with [employer] dictation software. It may contain incorrect words, spelling, and punctuation that were not noted in checking the note before signing. Code Visit Inpatient E&M: 35891 Subs Hosp L3
--- NOTE | 2018-11-05 09:10 | PN_ITS ---
Patient Problems: Active and Suspected Problems (Last Updated 11/04/18 @ 11:05 by Juan Carlos Plummer MD) Dyspnea (Acute) Pleural effusion (Acute) Subjective: Shortness of breath has improved after thoracocentesis. Complain of pain no over thoracocentesis site. Pleural fluid analysis shows exudate. Pulse ox 95% on 2 to 3 L of oxygen Vitals/I&O's: Vital Signs Temp Pulse Resp BP Pulse Ox 97.8 F 93 17 105/64 97 11/05/18 09:07 11/05/18 09:07 11/05/18 09:07 11/05/18 09:07 11/05/18 09:07 Oxygen Flow Rate (L/min) [3] 2 Oxygen Flow Rate (L/min) [2] 2 Oxygen Flow Rate (L/min) [1 ( 2 Initial Baseline)] Oxygen Flow Rate (L/min) 3 Oxygen Delivery Method [4] Nasal Cannula Oxygen Delivery Method [3] Nasal Cannula Oxygen Delivery Method [2] Nasal Cannula Oxygen Delivery Method [1 ( Nasal Cannula Initial Baseline)] Oxygen Delivery Method Nasal Cannula Weight: 194 lb 10.691 oz Body Mass Index (BMI) 28.7 Intake and Output for Last 24 Hours 11/03/18 11/04/18 11/05/18 23:59 23:59 23:59 Intake Total 497 / 497 2102 / 2102 360 / 360 Balance 497 / 497 2102 / 2102 360 / 360 General: Alert, Oriented x3, Cooperative HEENT: Atraumatic, PERRLA, EOMI, Normocephalic Neck: Supple, No JVD, Negative Carotid Bruits Lungs: Clear to auscultation, No rhonchi, No wheeze, No rales, Diminished - Air entry is diminished on right lung base. Cardiovascular: Regular rate, Regular Rhythm, Normal S1, Normal S2, No murmurs Abdomen: Bowel Sounds Present, Soft, Non Tender, Non-Distended Extremities: No edema, Capillary Refill Less than 3 Seconds Skin: No rashes, No breakdown Musculoskeletal: No Tenderness to Palpation of Joints or Extremities, Arthritic Changes Lymphatic: No Cervical, Supraclavicular, or Inguinal Adenopathy Neurological: Cranial nerves II-XII grossly intact, Deep Tendon Reflexes 2+/4 and Symmetrical, Neuro grossly intact Psych/Mental Status: Normal Affect, Appropriate Microbiology Past 72 Hours 11/04/18 10:40 Mucosa - Nasopharyngeal Respiratory Panel (PCR) - Final 11/04/18 16:50 Interface Orders Streptococcus pneumoniae Antigen (M - Final 11/04/18 16:50 Urine, Clean Catch Legionella Antigen - Final Laboratory Results 11/04/18 08:42: Lactate Dehydrogenase 208, Total Protein 7.1, Globulin 4.0, Albumin/Globulin Ratio 0.8 L 11/04/18 13:45: Fluid Glucose 119 H, Fluid Total Protein 5.3, Fluid LDH 202 11/04/18 13:45: Fluid Source THORACENTESIS, Fluid Color YELLOW, Fluid Appearance SL CLDY, Fluid WBC 0.859, Fluid RBC 0.67849, Fluid Tot Cell Count 1.004, Fld Polynuclear WBCs # 0.138, Fld Polynuclear WBCs % 16.1, Fluid Mononuclear WBCs 0.721, Fld Mononuclear WBCs % 83.9, Fluid Neutrophils 14, Fluid Lymphocytes 48, Fluid Monocytes 2, Fluid Macrophages 17, Fld Mesothelial Cells 19, Fl Pathologist Comment May follow, Fluid Comment 2 SEE COMMENT 11/04/18 13:45: Miscellaneous Cytology Pending Current Medications Acetaminophen (Tylenol) 650 mg PO Q6H PRN PRN PRN Reason: Pain or Fever Last Admin: 11/05/18 07:29 Dose: 650 mg Albuterol Sulfate (Ventolin Aerosols) 2.5 mg INHALATION Q4H PRN PRN Reason: shortness of breath or wheezin Albuterol/Ipratropium (Duoneb) 3 ml INHALATION Q6HWA.RT [facility] Last Admin: 11/05/18 06:43 Dose: 3 ml Atorvastatin Calcium (Lipitor) 20 mg PO QHS [facility] Last Admin: 11/04/18 22:10 Dose: 20 mg Budesonide (Pulmicort Aerosol) 0.5 mg INHALATION Q12H.RT [facility] Last Admin: 11/05/18 06:43 Dose: 0.5 mg Docusate Sodium (Colace) 200 mg PO BID PRN PRN PRN Reason: Constipation Famotidine (Pepcid) 20 mg PO BID [facility] Last Admin: 11/04/18 22:10 Dose: 20 mg Guaifenesin (Mucinex) 1,200 mg PO BID [facility] Last Admin: 11/04/18 22:09 Dose: 1,200 mg Heparin Sodium (Beef Lung) () 50 units IV UD PRN PRN Reason: HEPARIN FLUSH Azithromycin 500 mg/ Dextrose 255 mls @ 250 mls/hr IV Q24 [facility] Stop: 11/06/18 11:02 Last Admin: 11/04/18 10:10 Dose: 250 mls/hr Ceftriaxone Sodium (Rocephin) 1 gm in 50 mls @ 100 mls/hr IV Q24 [facility] Last Admin: 11/04/18 09:30 Dose: 100 mls/hr Metoprolol Tartrate (Lopressor (Beta Toñito)) 50 mg PO BID [facility] Last Admin: 11/04/18 22:09 Dose: 50 mg Ondansetron HCl (Zofran) 4 mg IV Q6H PRN PRN PRN Reason: Nausea Oxycodone HCl (Oxyir) 5 mg PO Q4H PRN PRN PRN Reason: Moderate Pain (pain scale 4-5) Last Admin: 11/04/18 22:09 Dose: 5 mg Pantoprazole Sodium (Protonix) 20 mg PO DAILY [facility] Last Admin: 11/04/18 09:15 Dose: 20 mg Sodium Chloride () 10 ml IV UD PRN PRN Reason: VAD FLUSH Last Admin: 11/04/18 12:14 Dose: 10 ml Medical Necessity - Tobacco Use Smoking Status: Former smoker Assessment/Plan All Active Problems (Last Updated 11/04/18 @ 11:05 by Juan Carlos Plummer MD) Dyspnea (Acute) CAP (community acquired pneumonia) (Acute) Acute bacterial sinusitis (Acute) Chemotherapy management, encounter for (Resolved) Electrolyte imbalance (Acute) Encounter for immunotherapy (Acute) Pleural effusion (Acute) Encounter for fitting and adjustment of vascular catheter (Acute) Educational circumstance (Acute) H/O hernia repair (Resolved) Hemoptysis (Acute) Pneumonia (Acute) This is a 67-year-old gentleman with diagnosis of NSCLC, 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 Patient also had low-grade fever at home. Patient has worsening of cough and brings up clear sputum. Patient also had thoracocentesis in March 2018 which was negative for malignant cells. Patient had first chemotherapy and radiotherapy, started in August [address] Plummer and was supposed begin consolidation immunotherapy on 11/04/2018; Durvalumab. patient has a history of COPD, as per PFT in January 2018 which showed partially reversible very severe large airway obstructive ventilatory defect associated with air trapping and reduction in diffusing capacity. He has a history of smoking of 2 and half packs for 20 years quit in 2009 1. Large right-sided pleural effusion with history of squamous cell lung cancer; suspicion of possible malignant effusion: Patient is being admitted PCU. Patient had 920 mL clear carolin color fluid drained. Pleural fluid analysis suggestive of exudate. Total protein 5.3, LDH 202. Total WBC 859. It is mononuclear predominance 83.9%, polynuclear 16.1%. 2. SIRS (fever, hypoxia) with right lower lobe community-acquired pneumonia: CT chest done in the ER reviewed. It shows large right-sided pleural effusion with right lower lobe consolidation and underlying atelectasis: on IV Rocephin and Zithromax. The antigens are negative blood cultures x2 are pending. Respiratory panel negative. BiPAP if patient gets into respiratory distress. 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 Patient does not seem to be in COPD exacerbation. Other comorbidities include hypertension, dyslipidemia, anemia of chronic disease: Home medication reconciliation done. Due to prophylaxis: Hold Lovenox today for the procedure as mentioned above. Code Visit Inpatient E&M: 12551 Subs Hosp L2
[2018-11-05] MEDS: Famotidine 20 MG Tablet PO ×2 (09:11→22:07)
[2018-11-05] MEDS: Pantoprazole Sodium 20 MG Tablet PO (09:11)
[2018-11-05] MEDS: Metoprolol Tartrate 50 MG Tablet PO ×2 (09:12→22:06)
[2018-11-05] MEDS: guaiFENesin 1,200 MG Tablet 1200 MG PO ×2 (09:12→22:06)
[2018-11-05] MEDS: 0.9% NaCl VAD Flush 10 ML IV ×2 (09:15→13:07)
--- NOTE | 2018-11-05 11:55 | DCINST_ITS ---
- Discharge Diagnoses Current Active Problems: Current Active and Chronic Problems (Last Updated 11/04/18 @ 11:05 by Juan Carlos Plummer MD) Dyspnea (Acute) Pleural effusion (Acute) Non-small cell lung cancer (Chronic) Pleural effusion, right (Chronic) March 2018, negative cytology Stage 4 very severe COPD by GOLD classification (Chronic) You will use the following diet at home:: Cardiac Your food should be the consistency of: Regular Discharge Activity: May Not Drive Call your doctor if you observe: Fever of 101 or Higher, Inability to urinate, Inability to have a bowel movement, Shortness of breath, Fainting spells, Swelling in the ankles, Chest pain, Increased palpitations (irregular heartbeat), Uncontrolled pain Allergies/Adverse Reactions: Allergies No Known Allergies Allergy (Verified 11/03/18 17:40) Medications to take at Discharge Metoprolol Tartrate [Lopressor (beta shorty)] 50 mg PO BID 06/16/17 Simvastatin [Zocor] 40 mg PO QHS 06/16/17 albuterol sulfate HFA 90 mcg/actuation aerosol inhaler 2 puff INHALATION Q4H PRN #3 ea 04/08/18 Fluticasone/Umeclidin/Vilanter [Trelegy Ellipta 100-62.5-25] 1 puff INHALATION DAILY 11/03/18 Guaifenesin [Mucinex] 1,200 mg PO BID #14 tablet 11/05/18 Levofloxacin [Levaquin] 500 mg PO BID #2 tablet 11/06/18 The following prescriptions were given: Guaifenesin [Mucinex] 1,200 mg PO BID #14 tablet Levofloxacin [Levaquin] 500 mg PO BID #2 tablet Primary Care Physician: Semaj Hancock MD [Primary Care Provider] - Please follow up with your Primary Care Physician in: in 2 week Test Results: Test results from this visit will be discussed in further detail at your follow- up appointment, if applicable. Please Follow Up With: Antonio Chin DO When: in 3-4 week Please Follow Up With: Juan Carlos Plummer MD When: Saturday
[2018-11-05] MEDS: Ceftriaxone 1 GM/50 ML BAG IV (12:20)
[2018-11-05 15:01] LABS: Pathologist Comment/Body Fluid Reviewed
[2018-11-05 20:39] LABS: Glucose, Body Fluid 118 mg/dL (40-70)
[2018-11-05] MEDS: Atorvastatin Calcium 20 MG Tablet PO (22:06)
[2018-11-05] MEDS: oxyCODONE 5 MG Tablet PO (22:06)
[2018-11-06 04:09] VITALS: BP 109/72; PULSE 67; RESP 16; TEMP 36.8; O2SAT 94
[2018-11-06 06:52] VITALS: PULSE 90; RESP 16; O2SAT 92
[2018-11-06] MEDS: Budesonide Respules 0.5 MG/2 ML AMPUL.NEB. INHALATION (06:52)
[2018-11-06] MEDS: Ipratropium/Albuterol Sulfate 3 ML AMPUL.NEB INHALATION ×2 (06:52→13:01)
--- NOTE | 2018-11-06 07:14 | PCM.PN.PUL ---
Patient Problems: Active and Suspected Problems (Last Updated 11/04/18 @ 11:05 by Juan Carlos Plummer MD) Dyspnea (Acute) Pleural effusion (Acute) Subjective: The patient was seen and examined at the bedside this morning. Events from the last 24 hours have been reviewed. The patient is currently afebrile, hemodynamically stable and maintaining appropriate oxygen saturations on 2 L/min via nasal cannula. Breathing quality has been stable. The patient does confirm that he has a follow-up scheduled with Dr. Plummer next week. Objective: The patient's most recent lab work, culture data and imaging studies have all been personally reviewed. Pleural fluid from ultrasound-guided thoracentesis was exudative in nature. Pleural fluid cytology is still pending. - Physical Exam General: Alert, Oriented x3, Cooperative, No apparent distress HEENT: Atraumatic, PERRLA, Normocephalic Oral: No Gingival or Mucosal Lesions/ Ulcerations Neck: Supple, No Nodes, Trachea Midline Lungs: No rhonchi, No wheeze, Diminished Cardiovascular: Regular rate, Regular Rhythm, Normal S1, Normal S2, No murmurs Abdomen: Bowel Sounds Present, Soft, Non Tender Extremities: No clubbing, No cyanosis, No edema Skin: No breakdown Musculoskeletal: No Tenderness to Palpation of Joints or Extremities, No Muscle Wasting Lymphatic: No Cervical, Supraclavicular, or Inguinal Adenopathy Neurological: Neuro grossly intact Psych/Mental Status: Normal Affect, Appropriate Vital Signs Temp Pulse Resp BP Pulse Ox 98.3 F 90 16 109/72 92 11/06/18 04:09 11/06/18 06:52 11/06/18 06:52 11/06/18 04:09 11/06/18 06:52 Oxygen Flow Rate (L/min) [3] 2 Oxygen Flow Rate (L/min) [2] 2 Oxygen Flow Rate (L/min) [1 ( 2 Initial Baseline)] Oxygen Flow Rate (L/min) [ 2 AMBULATION with Oxygen] Oxygen Flow Rate (L/min) [At 2 REST on Room Air] Oxygen Flow Rate (L/min) 2 Oxygen Delivery Method [4] Nasal Cannula Oxygen Delivery Method [3] Nasal Cannula Oxygen Delivery Method [2] Nasal Cannula Oxygen Delivery Method [1 ( Nasal Cannula Initial Baseline)] Oxygen Delivery Method Nasal Cannula Weight: 194 lb 10.691 oz Body Mass Index (BMI) 28.7 Intake and Output for Last 24 Hours 11/04/18 11/05/18 11/06/18 23:59 23:59 23:59 Intake Total 2101 2465 / 2465 200 / 200 Balance 210 / 210 2465 / 2465 200 / 200 Microbiology Past 72 Hours 11/04/18 15:05 Gram Stain - Final Sputum, Expectorated/Coughed Respiratory Culture - Preliminary Appears to be normal respiratory sam. Further studies to follow. 11/04/18 10:40 Respiratory Panel (PCR) - Final Mucosa - Nasopharyngeal 11/04/18 16:50 Streptococcus pneumoniae Antigen (M - Final Interface Orders 11/04/18 16:50 Legionella Antigen - Final Urine, Clean Catch Laboratory Tests Past 24 Hrs 11/04/18 11/04/18 13:45 13:45 Fl Pathologist Comment Reviewed Fluid Glucose 118 H Clinical Impression(s) from Imaging Studies Chest X-Ray 11/03/18 17:15 IMPRESSION: Opacification in the inferior half of the right hemithorax suggesting likely combination of atelectasis and effusion. Infiltrate and/or recurrence of lung carcinoma cannot be excluded. Recommend further evaluation with chest CT. Left lung shows chronic interstitial changes but no superimposed acute pulmonary process Electronically Signed: Ziggy Blevins MD at 17:30 EDT , Service support , Chest CTA 11/03/18 18:27 IMPRESSION: No demonstrated PE, or thoracic aortic aneurysm, or dissection Atelectasis and consolidation in the right lower lobe. The right middle lobe mass is unchanged from the previous study. Once again noted is abrupt stenosis of the right mainstem bronchus and the pulmonary artery branch leading to the right lower lobe. Stable large pleural effusion Electronically Signed: Ziggy Blevins MD at 19:14 EDT , Service support , Thoracentesis Ultrasound 11/04/18 07:48 IMPRESSION: Ultrasound-guided right thoracentesis. Electronically Signed: Fish Mac, at 14:35 EDT , Service support , Chest X-Ray 11/04/18 14:00 IMPRESSION: Status post right thoracentesis. There is no evidence of pneumothorax. Residual pleural parenchymal changes at the right lung base. Electronically Signed: Fish Mac, at 14:29 EDT , Service support , Medical Necessity - Tobacco Use Smoking Status: Former smoker Assessment/Plan All Active Problems (Last Updated 11/04/18 @ 11:05 by Juan Carlos Plummer MD) Dyspnea (Acute) CAP (community acquired pneumonia) (Acute) Acute bacterial sinusitis (Acute) Chemotherapy management, encounter for (Resolved) Electrolyte imbalance (Acute) Encounter for immunotherapy (Acute) Pleural effusion (Acute) Encounter for fitting and adjustment of vascular catheter (Acute) Educational circumstance (Acute) H/O hernia repair (Resolved) Hemoptysis (Acute) Pneumonia (Acute) RECOMMENDATIONS: 1. Await pleural fluid cytology results. 2. Recommend empiric treatment course of antimicrobials. The patient can likely be transitioned to Levaquin at this time. 3. Continue bronchodilators and budesonide as ordered. 4. Continue to wean supplemental oxygen as tolerated. 5. Perform walking oximetry study prior to consideration for discharge from the hospital. 6. The patient can follow-up with Dr. Plummer regarding pleural fluid cytology results. 7. Follow-up in the pulmonary medicine clinic as scheduled. IMPRESSIONS: 1. Right-sided pleural effusion/history of non-small cell lung cancer The patient's chest imaging studies were personally reviewed. The patient does have a progressive right-sided pleural effusion, which appears to have a large since prior CT in July. The patient did undergo an ultrasound-guided thoracentesis in 2017, at which time, the patient's pleural fluid studies were negative for malignancy. In light of the patient's respiratory decline, ultrasound-guided thoracentesis was completed on November 04. Just under 1 L of fluid was removed from the patient's right hemithorax. Pleural fluid analysis is consistent with that of an exudate. Infectious work-up has been unrevealing to date. The patient remains on empiric antimicrobial coverage in the interim. Continue to wean supplemental oxygen to maintain saturations at or above 90%. Encourage incentive spirometer use to aid in alveolar recruitment following thoracentesis. Follow-up with oncology to discuss pleural fluid cytology results. 2. Stage IV COPD Continue scheduled bronchodilators and budesonide. Resume Trelegy at discharge. This note was generated with [employer] dictation software. It may contain incorrect words, spelling, and punctuation that were not noted in checking the note before signing. Code Visit Inpatient E&M: 78836 Subs Hosp L2
--- NOTE | 2018-11-06 09:28 | DS.PCM_ITS ---
Discharge Date and Diagnosis - Problem List Patient Problems: Active and Suspected Problems (Last Updated 11/04/18 @ 11:05 by Juan Carlos Plummer MD) Dyspnea (Acute) Pleural effusion (Acute) Date of Admission: 11/03/18 Date of Discharge: 11/06/18 - Primary Discharge Diagnosis Active and Suspected Problems (Last Updated 11/04/18 @ 11:05 by Juan Carlos Plummer MD) Dyspnea (Acute) Pleural effusion (Acute) - Secondary Discharge Diagnosis Chronic Problems (Last Updated 11/04/18 @ 11:05 by Juan Carlos Plummer MD) Immunotherapy encounter (Chronic) Non-small cell lung cancer (Chronic) Anemia (Chronic) Pleural effusion, right (Chronic) March 2018, negative cytology Primary cancer of right middle lobe of lung (Chronic) Stage 4 very severe COPD by GOLD classification (Chronic) Tobacco abuse, in remission (Chronic) Hypertension (Chronic) Hyperlipidemia (Chronic) Hospital Course and Treatment Summary of Care Provided: This is a 67-year-old gentleman with diagnosis of NSCLC, 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 Patient also had low-grade fever at home. Patient has worsening of cough and brings up clear sputum. Patient also had thoracocentesis in March 2018 which was negative for malignant cells. Patient had first chemotherapy and radiotherapy, started in August [address] Plummer and was supposed begin consolidation immunotherapy on 11/04/2018; Durvalumab. patient has a history of COPD, as per PFT in January 2018 which showed partially reversible very severe large airway obstructive ventilatory defect associated with air trapping and reduction in diffusing capacity. He has a history of smoking of 2 and half packs for 20 years quit in 2009 1. Large right-sided pleural effusion with history of squamous cell lung cancer; suspicion of possible malignant effusion: Patient is being admitted PCU. Patient had 920 mL clear carolin color fluid drained. Pleural fluid analysis suggestive of exudate. Total fluid protein 5.3, LDH 202. Total WBC 859. It is mononuclear predominance 83.9%, polynuclear 16.1%. Patient shortness of breath and respiratory distress much better after thoracocentesis. Patient requires 2 L of oxygen at rest. Pulse ox 87% on room air at rest. 93% on 2 L of nasal cannula. On ambulation 92% on 2 L of oxygen. Patient is ambulatory in home and in the community and requires home oxygen with portability. 2. SIRS (fever, hypoxia) with right lower lobe community-acquired pneumonia: CT chest done in the ER reviewed. It shows large right-sided pleural effusion with right lower lobe consolidation and underlying atelectasis: on IV Rocephin and Zithromax. The antigens are negative blood cultures x2 are pending. Respiratory panel negative. Sputum culture shows normal respiratory sam. Pat ient is empirically treated with antibiotics because of right lower lobe consolidation in CT. 2 more days of Levaquin to complete short course 5 days of total antibiotics. 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 Patient does not seem to be in COPD exacerbation. Other comorbidities include hypertension, dyslipidemia, anemia of chronic disease: Home medication reconciliation done. Dvt prophylaxis: On Lovenox Discharge medication reconciliation done. Discharge follow-up instructions completed. Discharge process discussed with the patient and all questions were answered to patient's satisfaction. Patient has follow-up pleural fluid cytology with oncologist Dr. Plummer week. Follow-up with the mud analysis well logging captain Dr. Chin as a scheduled. Total time spent, exact 35 minutes on discharge meds reconciliation, examination, review of imaging and blood test and discussion with the patient on follow-up instructions. Patient Problems: Active and Suspected Problems (Last Updated 11/04/18 @ 11:05 by Juan Carlos Plummer MD) Dyspnea (Acute) Pleural effusion (Acute) Subjective: Patient is not short of breath. No dyspnea but is still on 2 L of oxygen. Walking pulse oximetry was done and patient requires 2 L at rest and on ambulation. - Physical Exam General: Alert, Oriented x3, Cooperative HEENT: Atraumatic, PERRLA, EOMI, Normocephalic Neck: Supple, No JVD, Negative Carotid Bruits Lungs: No rhonchi, No wheeze, No rales, Diminished - Air entry is diminished on the right lung base; although has improved. Cardiovascular: Regular rate, Regular Rhythm, Normal S1, Normal S2, No murmurs Abdomen: Bowel Sounds Present, Soft, Non Tender, Non-Distended Extremities: No edema, Capillary Refill Less than 3 Seconds Skin: No rashes, No breakdown Musculoskeletal: No Tenderness to Palpation of Joints or Extremities, Arthritic Changes Neurological: Cranial nerves II-XII grossly intact, Deep Tendon Reflexes 2+/4 and Symmetrical, Neuro grossly intact Psych/Mental Status: Normal Affect, Appropriate Vital Signs Temp Pulse Resp BP Pulse Ox 98.3 F 90 16 109/72 92 11/06/18 04:09 11/06/18 06:52 11/06/18 06:52 11/06/18 04:09 11/06/18 06:52 Oxygen Flow Rate (L/min) [3] 2 Oxygen Flow Rate (L/min) [2] 2 Oxygen Flow Rate (L/min) [1 ( 2 Initial Baseline)] Oxygen Flow Rate (L/min) [ 2 AMBULATION with Oxygen] Oxygen Flow Rate (L/min) [At 2 REST on Room Air] Oxygen Flow Rate (L/min) 2 Oxygen Delivery Method [4] Nasal Cannula Oxygen Delivery Method [3] Nasal Cannula Oxygen Delivery Method [2] Nasal Cannula Oxygen Delivery Method [1 ( Nasal Cannula Initial Baseline)] Oxygen Delivery Method Nasal Cannula Weight: 194 lb 10.691 oz Body Mass Index (BMI) 28.7 Intake and Output for Last 24 Hours 11/04/18 11/05/18 11/06/18 23:59 23:59 23:59 Intake Total 210 / 2102 2465 / 2465 200 / 200 Balance 2102 / 2102 2465 / 2465 200 / 200 Microbiology Past 72 Hours 11/04/18 15:05 Gram Stain - Final Sputum, Expectorated/Coughed Respiratory Culture - Preliminary Appears to be normal respiratory sam. Further studies to follow. 11/04/18 10:40 Respiratory Panel (PCR) - Final Mucosa - Nasopharyngeal 11/04/18 16:50 Streptococcus pneumoniae Antigen (M - Final Interface Orders 11/04/18 16:50 Legionella Antigen - Final Urine, Clean Catch Laboratory Tests Past 24 Hrs 11/04/18 11/04/18 13:45 13:45 Fl Pathologist Comment Reviewed Fluid Glucose 118 H Discharge Activity: May Not Drive Call your doctor if you observe: Fever of 101 or Higher, Inability to urinate, Inability to have a bowel movement, Shortness of breath, Fainting spells, Swelling in the ankles, Chest pain, Increased palpitations (irregular heartbeat), Uncontrolled pain Home Medications: Medications to take at Discharge Metoprolol Tartrate [Lopressor (beta shorty)] 50 mg PO BID 06/16/17 Simvastatin [Zocor] 40 mg PO QHS 06/16/17 albuterol sulfate HFA 90 mcg/actuation aerosol inhaler 2 puff INHALATION Q4H PRN #3 ea 04/08/18 Fluticasone/Umeclidin/Vilanter [Trelegy Ellipta 100-62.5-25] 1 puff INHALATION DAILY 11/03/18 Guaifenesin [Mucinex] 1,200 mg PO BID #14 tablet 11/05/18 Levofloxacin [Levaquin] 500 mg PO BID #2 tablet 11/06/18 Following Prescrptions Were Given to Patient: Guaifenesin [Mucinex] 1,200 mg PO BID #14 tablet Levofloxacin [Levaquin] 500 mg PO BID #2 tablet Primary Care Physician: Semaj Hancock MD [Primary Care Provider] - Please follow up with your Primary Care Physician in: in 2 week Please Follow Up With: Antonio Chin DO When: in 3-4 week Please Follow Up With: Juan Carlos Plummer MD When: Saturday Medical Necessity - Tobacco Use Smoking Status: Former smoker Meaningful Use Info Meaningful Use Diagnoses (Choose all that apply): None applicable Code Visit Inpatient E&M: 86634 Disch Hosp
[2018-11-06 09:41] VITALS: PULSE 78
[2018-11-06] MEDS: Ceftriaxone 1 GM/50 ML BAG IV (09:41)
[2018-11-06] MEDS: Famotidine 20 MG Tablet PO (09:41)
[2018-11-06] MEDS: Metoprolol Tartrate 50 MG Tablet PO (09:41)
[2018-11-06] MEDS: Pantoprazole Sodium 20 MG Tablet PO (09:41)
[2018-11-06] MEDS: guaiFENesin 1,200 MG Tablet 1200 MG PO (09:41)
[2018-11-06 10:00] VITALS: BP 119/79; PULSE 100; RESP 18; TEMP 36.7; O2SAT 87; O2SAT 93
--- NOTE | 2018-11-06 10:32 | CASEMGMT ---
Addendum entered by Nicol Sauceda 11/06/18 13:59: F2F faxed to [facility] at this time. Chon ORTIZ CM Original Note: Addendum entered by Nicol Sauceda 11/06/18 11:59: Pt/ updated on home oxygen set up at this time, voice understanding. Pt/ voice no further questions/concerns/needs at this time. Pt awaiting O2 tank delivery from [facility]. Chon ORTIZ CM Original Note: Per Rosalind RN, pt did qualify for home oxygen at this time at 87% on room air at rest at this time. Pt stated no preference for DME previously and [facility] so [facility] is preferred provider. Referral faxed to [facility] at this time with qualifying documentation. F2F will be faxed once obtained. Chon ORTIZ CM
[2018-11-06 13:01] VITALS: PULSE 78; RESP 16; O2SAT 92
== END 2018-11-06 11:55 | disposition home or self-care (01) ==
LOC: ED 19:49 → PCU 20:13
PROVIDERS: Internal Medicine Critical Care Medicine; Admitting Provider Family Medicine; Emergency Provider Emergency Medicine; Family Provider Family Medicine; PCP Family Medicine; Visit Provider Internal Medicine
DX: J44.0 Chronic obstructive pulmonary disease with (acute) lower respiratory infection (principal); J18.9 Pneumonia, unspecified organism; E78.5 Hyperlipidemia, unspecified; I10 Essential (primary) hypertension; D63.8 Anemia in other chronic diseases classified elsewhere; E87.1 Hypo-osmolality and hyponatremia; C34.2 Malignant neoplasm of middle lobe, bronchus or lung; Z87.891 Personal history of nicotine dependence; Z79.899 Other long term (current) drug therapy; Z99.81 Dependence on supplemental oxygen
CPT/HCPCS: 32555; 36415; 36591; 71045; 71046; 71275; 80048; 81001; 82945; 83615; 84156; 84157; 85025; 85027; 85610; 87040; 87070; 87205; 87449; 87633; 88108; 88305; 88313; 89050; 93005; 94640; 94760; 96361; 96365; 96366; 96367; 97802; 99218; 99284; J7030; Q9967; A4216; G0378

== ENCOUNTER → 2018-12-02 08:24 | Outpatient (CLI) | payer MEDICARE, SELFPAY ==
[2018-03-10 11:02] VITALS: BMI 29.9
[2018-11-18 07:44] VITALS: BMI 28.7
[2018-11-25 08:29] VITALS: BMI 29.1
[2018-12-02 08:30] VITALS: PULSE 62; PULSE 67; PULSE 73; PULSE 76; PULSE 77; PULSE 79; PULSE 80; O2SAT 89; O2SAT 90; O2SAT 91; O2SAT 92; O2SAT 93; O2SAT 94; O2SAT 97
--- NOTE | 2018-12-02 13:01 | PCM.PSN.6M ---
PSN 6 Minute Walk Test - 6 Minute Walk Test 6 Minute Walk Test: 6 Minute Walk Test PSN:6-Minute Walk Test Start: 12/02/18 08:50 Freq: Status: Active Protocol: RESP.6MINW Document 12/02/18 08:30 JLA (Rec: 12/02/18 08:56 JLA [id number]) 6 Minute Walk Test Date Performed 12/02/18 Time Performed 08:30 Height 5 ft 9 in Weight: 197 lb Weight in Pounds 197.[address]: Karen Desir Pre-test Oxygen Delivery Method Room Air Pulse Ox (%) 97 Pulse Rate (60-100 beats/min) 62 Dyspnea Darlyn Scale (0-10) 0 Exertion Darlyn Scale (6-20) 6 1st minute Oxygen Delivery Method Room Air Pulse Ox (%) 94 Pulse Rate (60-100 beats/min) 73 2nd minute Oxygen Delivery Method Room Air Pulse Ox (%) 91 Pulse Rate (60-100 beats/min) 79 3rd minute Oxygen Delivery Method Room Air Pulse Ox (%) 89 Pulse Rate (60-100 beats/min) 76 4th minute Oxygen Delivery Method Room Air Pulse Ox (%) 90 Pulse Rate (60-100 beats/min) 77 5th minute Oxygen Delivery Method Room Air Pulse Ox (%) 92 Pulse Rate (60-100 beats/min) 80 6th minute Oxygen Delivery Method Room Air Pulse Ox (%) 91 Pulse Rate (60-100 beats/min) 80 Dyspnea Darlyn Scale (0-10) 2 Exertion Darlyn Scale (6-20) 11 Post-test Oxygen Delivery Method Room Air Pulse Ox (%) 93 Pulse Rate (60-100 beats/min) 67 Full Laps Walked 19 Partial Lap, Number of Tiles Walked 10 Total Distance Walked (ft) 1131 - Interpretation Interpretation: The patient ambulated 1131 feet over the course of 6 minutes beginning on room air without assistive devices or breaks. Pretesting oxygen saturation was noted to be 97% on room air. With ambulation, the susan oxygen saturation was 89%. This represents a significant exertional oxygen desaturation, consistent with a pulmonary limitation to exercise tolerance. - Recommendations Recommendations: There is no indication for the use of supplemental oxygen at this time. However, close interval follow-up is recommended, given the degree of oxygen desaturation noted during this study.
== END ==
PROVIDERS: Family Provider Family Medicine; PCP Family Medicine; Referring Provider Nurse Practitioner Acute Care; Visit Provider Nurse Practitioner Acute Care
DX: R06.00 Dyspnea, unspecified (principal)
CPT/HCPCS: 94618

== ENCOUNTER → 2018-12-03 14:49 | Outpatient (CLI) | payer MEDICARE, SELFPAY ==
[2018-03-10 11:02] VITALS: BMI 29.9
[2018-11-25 08:29] VITALS: BMI 29.1
--- NOTE | 2018-12-03 14:50 | ECHOD_ITS ---
Reason For Study: Dyspnea/SOB Procedure This was a 2D Doppler, Color Flow transthoracic echocardiogram. Myocardial strain analysis was performed in this exam to aid in the assessment of cardiac function. Exam performed in department. Left Ventricle Normal size and thickness. The global longitudinal strain = -22.2 % (normal). The estimated ejection fraction is 65 %. Stage 1 diastolic dysfunction. No regional wall motion abnormalities noted. Right Ventricle Moderately dilated right ventricle. Normal systolic function. Atria Normal left atrium. Normal right atrium. Normal atrial septum. Mitral Valve The mitral valve is structurally normal. No prolapse or stenosis seen. Equivocal mitral valve prolapse. Tricuspid Valve Normal tricuspid valve. Trivial tricuspid valve insufficiency. Right ventricular systolic pressure estimated to be 21 mmHg. Aortic Valve Trisinus/trileaflet aortic valve. Mild diffuse aortic valve thickening. Trivial aortic valve insufficiency. Pulmonic Valve Normal pulmonic valve. Trivial pulmonic valve insufficiency identified. Great Vessels Normal aortic root. Normal arch. Normal inferior vena cava. Inferior vena cava collapse with sniff. Pericardium/Pleural No pericardial effusion. MMode/2D Measurements & Calculations LVIDd: 4.7 cm IVSd: 1.3 cm Ao root diam: 3.6 cm LVIDs: 3.1 cm LVPWd: 0.93 cm LA dimension: 3.7 cm FS: 34.0 % LAV(MOD-sp2): 34.8 ml Time Measurements MV dec time: 0.20 sec Doppler Measurements & Calculations MV E max maurizio: 84.1 cm/sec Lat Peak E' Maurizio: 9.3 cm/sec Med Peak E' Maurizio: 5.7 cm/sec MV A max maurizio: 106.8 cm/sec E/E' lat: 9.1 E/E' med: 14.8 MV E/A: 0.79 MV V2 max: 118.5 cm/sec MV P1/2t max maurizio: 95.3 cm/sec Ao V2 max: 122.3 cm/sec MV max P.6 mmHg MV P1/2t: 79.1 msec Ao max P.0 mmHg MV V2 mean: 58.0 cm/sec Ao V2 mean: 81.3 cm/sec MV mean P.6 mmHg MV dec slope: 353.0 cm/sec2 Ao mean P.0 mmHg MV V2 VTI: 32.0 cm MVA(P1/2t): 2.8 cm2 Ao V2 VTI: 23.2 cm LV V1 max: 104.3 cm/sec PA V2 max: 109.8 cm/sec PI end-d maurizio: 95.3 cm/sec LV V1 max P.3 mmHg LV V1 mean P.9 mmHg LV V1 mean: 64.1 cm/sec LV V1 VTI: 19.8 cm TR max maurizio: 200.3 cm/sec TR max P.1 mmHg Interpretation Summary The global longitudinal strain = -22.2 % (normal). The estimated ejection fraction is 65 %. Stage 1 diastolic dysfunction. Moderately dilated right ventricle. Trivial tricuspid valve insufficiency. Right ventricular systolic pressure estimated to be 21 mmHg. Trivial aortic valve insufficiency. Compared to echo report dated 05/07/2006, no appreciable changes noted. Ordering Physician: Karen Desir Referring Physician: Karen Desir Performed By: Alfonso Giron RCS
== END ==
PROVIDERS: Family Provider Family Medicine; PCP Family Medicine; Referring Provider Nurse Practitioner Acute Care; Visit Provider Nurse Practitioner Acute Care
DX: J90 Pleural effusion, not elsewhere classified (principal); R06.00 Dyspnea, unspecified; R06.02 Shortness of breath
CPT/HCPCS: 93306

== ENCOUNTER → 2018-12-15 10:27 | Outpatient (CLI) | payer MEDICARE, SELFPAY ==
[2018-03-10 11:02] VITALS: BMI 29.9
[2018-12-09 10:57] VITALS: BMI 29.8
[2018-12-10 08:40] VITALS: BMI 29.8
--- NOTE | 2018-12-15 10:28 | NM_ITS ---
CLINICAL: 68-year-old male with reported history of carcinoma of the lung with current complaint of low back discomfort.. WHOLE BODY 99m Tc MDP RADIONUCLIDE BONE SCINTIGRAPHY COMPARISON: CT of the chest, abdomen and pelvis reports 10/29/2018 FINDINGS: Following the intravenous administration of 26.5 mCi of 99m Tc MDP, whole body bone images reveal: 1. Increased radiopharmaceutical concentration is identified in the bilateral anterior first, the right anterior fifth-seventh ribs at the costochondral junction, the right posterior 11th rib. 2. Enhanced uptake is demonstrated in the acromioclavicular compartments of both shoulders, sternoclavicular compartment of the right shoulder, mid cervical spine posteriorly on the left and right, bilateral knees, the right ankle, the right forefoot, right sacroiliac joint and right hip involving the superior acetabulum. 3. The remaining skeletal structures are scintigraphically unremarkable with normal-appearing renal images and urinary bladder activity identified. Facilitated tracer distribution is demonstrated in the bilateral mandible and maxilla most consistent with periodontal disease and/or periostitis. NM/Bone Scan Whole Body IMPRESSION: 1. Increased radiopharmaceutical concentration identified in the right anterior and posterior lungs likely represents trauma-fracture. Plain film radiography correlation may be of benefit in the setting of known lung carcinoma. 2. Degenerative arthritis is expressed in the bilateral shoulders, cervical spine, right and left knees, the right ankle, right forefoot, right sacral iliac joint and right hip. Electronically Signed: Keith Patel DO at 11:26 EDT Tel , Service support ,
== END ==
PROVIDERS: Family Provider Family Medicine; PCP Family Medicine; Referring Provider Internal Medicine Hematology & Oncology; Visit Provider Internal Medicine Hematology & Oncology
DX: C34.2 Malignant neoplasm of middle lobe, bronchus or lung (principal)
CPT/HCPCS: 78306; A4216

== ENCOUNTER → 2018-12-23 13:41 | Outpatient (CLI) | payer MEDICARE, SELFPAY ==
[2018-03-10 11:02] VITALS: BMI 29.9
[2018-12-23 10:36] VITALS: BMI 29.9
--- NOTE | 2018-12-23 13:43 | RAD_ITS ---
STUDY: X-RAY - BILATERAL RIBS WITH CHEST REASON FOR EXAM: Male, 68 years old. Rib pain anterior rib pain TECHNIQUE - RIBS: 8 view(s) of the ribs. TECHNIQUE - CHEST: Single PA view of the chest. The study is limited. There is a large right effusion which obscures the right chest to a great degree. COMPARISON: Chest x-ray November 03, 2018 FINDINGS - RIBS : There is an age-indeterminate fracture suggested the posterior aspect of right rib 9. There is a visualized right-sided Port-A-Cath. Th FINDINGS - CHEST: There is a large right effusion with a large air-fluid level. There is a right-sided Port-A-Cath. The left lung appears relatively clear. However there is a prominent appearance of the left hilum. The lungs are clear and expanded. There is no demonstrated pleural abnormality. Normal size heart. Normal mediastinum and mrecedes. Normal visualized pulmonary arteries. Normal visualized aortic arch and descending thoracic aorta. There are diffuse degenerative changes of the visualized thoracic spine. Normal visualized ribs, clavicles, and shoulders. There is no demonstrated abnormality of the visualized soft tissue structures of the upper abdomen. RAD/Ribs Torsten Min 4V w/PA Chest IMPRESSION: RIBS: Possible nondisplaced fracture right rib 9 versus summation of shadows. The study is limited given the very large right pleural effusion. The ribs may be better visualized by a study such as a CT scan of the chest without contrast. CHEST: There is a large right pleural fluid collection that obscures most of the ribs. Electronically Signed: Mary Randolph MD at 17:56 EDT Tel , Service support ,
== END ==
PROVIDERS: Family Provider Family Medicine; PCP Family Medicine; Referring Provider Internal Medicine Hematology & Oncology; Visit Provider Internal Medicine Hematology & Oncology
DX: C34.2 Malignant neoplasm of middle lobe, bronchus or lung (principal); C34.31 Malignant neoplasm of lower lobe, right bronchus or lung; Z79.899 Other long term (current) drug therapy
CPT/HCPCS: 36591; 71111; 80053; 83930; 83935; 85025; J7050; A4216; J9173

== ENCOUNTER → 2019-01-06 14:03 | Outpatient (CLI) | payer MEDICARE, SELFPAY ==
[2018-03-10 11:02] VITALS: BMI 29.9
[2018-12-23 10:36] VITALS: BMI 29.9
--- NOTE | 2019-01-06 | FLU_PTH ---
PATIENT: ANGEL LUIS MYRICK LOC: [facility]#:[id number] AGE/SX: 74/M ROOM: RE01/06/[address]: Dr. Chaitanya Luther DO : 1950 BED: DIS: SPEC #: [id number] RECD: 01/07/19 14:13 STATUS: GIRMA NELSON #: [id number] JENNY: 01/06/19 00:[address]: Chaitanya Luther DEPT: CYTOLOGY RECD BY: Aramis Avila ENTERED: 01/07/19 14:14 SP TYPE: Fluid OTHR DR: Dr. Semaj Hancock MD Tissues: THORACIC FLUID Procedures: Special Stain Group II Surgery Specimen Level IV Cytospin Fluid HEADER OPERATION: Ultrasound-guided thoracentesis PRE-OP DIAGNOSIS: Right pleural effusion TISSUE SUBMITTED: Thoracentesis fluid for cytology DIAGNOSIS CYTOLOGY Thoracentesis fluid for cytology (cytospin and cell block): Negative for malignant cells. SJ:sonali 01/08/19 COMMENT Please make reference to previous cytologies ([id number] and [id number]) thoracentesis fluid for cytology with diagnosis of negative for malignant cells and ([id number]) EBUS aspiration, hilar mass with diagnosis of malignant cells present derived from non-small cell carcinoma, favor squamous cell carcinoma and RML, endobronchial biopsy with diagnosis of non-small cell carcinoma, favor squamous cell carcinoma. CYTOLOGY STUDY Slides are reviewed. CYTOLOGY GROSS Received is 110 ml of yellow cloudy fluid labeled with the patient's name and and designated per the requisition as thoracentesis. Submitted for cytology preparation including cell block. / 01/07/19 TC:5 CPT: 76756, 93979 ADDENDUM ADDENDUM ADDENDUM ADDENDUM ADDENDUM ADDENDUM ADDENDUM ADDENDUM 01/09/2019 11:35 ADDENDUM 01/09/2019 11:35 ADDENDUM 01/09/2019 11:35 ADDENDUM 01/09/2019 11:35 ADDENDUM 01/09/2019 11:35 During QC review by Dr. Escamilla, he favors rare atypical cells present. Correlation with clinical, radiologic findings and appropriate follow up are necessary. SJ:sonali 01/09/19 Case has been reviewed in consultation with Dr. Escamilla who concurs with the above diagnosis. IDC:AM
[2019-01-06 10:32] VITALS: BMI 29.9
--- NOTE | 2019-01-06 14:09 | US_ITS ---
PROCEDURE: ULTRASOUND GUIDED THORACENTESIS. DATE: January 06, 2019.. INDICATION: Male, 68 years old. Right pleural effusion. PHYSICIAN: Fish Mac M.D. PROCEDURE: The risks, benefits, and alternatives to the procedure were explained to the patient. The specific risks of bleeding, infection, and pneumothorax requiring chest tube insertion were discussed and accepted. Written informed consent was obtained. Ultrasonographic evaluation of the right lower pleural space was carried out. An adequate pocket was identified. The patient was placed in the sitting, upright position. The overlying skin was prepped and draped in sterile fashion. 1% lidocaine was administered subcutaneously for local anesthesia. Under ultrasound guidance, a 5 Turkish thoracentesis needle/catheter system was advanced into the right posterior lower pleural fluid collection. Approximately 1120 mL of blood-tinged fluid fluid was drained. The catheter was removed, and a sterile dressing was applied. A specimen was collected and sent to the laboratory for analysis, as requested by the referring clinician. The patient tolerated the procedure well. A chest x-ray was ordered. US/Thoracentesis W US IMPRESSION: Ultrasound-guided right thoracentesis. Electronically Signed: Fish Mac, at 15:38 EDT , Service support ,
[2019-01-06 14:53] VITALS: BP 122/55; BP 131/56; BP 137/78; PULSE 101; PULSE 68; PULSE 95; RESP 18; O2SAT 100; O2SAT 95
[2019-01-06 14:55] LABS: International Normalized Ratio 1.1; Prothrombin Time (Protime)PT. 13.6 SECONDS (11.7-14.9)
[2019-01-06 14:56] LABS: Partial Thromboplast Time 27.4 Seconds (24.1-36.2)
--- NOTE | 2019-01-06 15:16 | RAD_ITS ---
STUDY: X-RAY CHEST REASON FOR EXAM: Male, 68 years old. Status post right thoracentesis. TECHNIQUE: AP inspiration and expiration. COMPARISON: Comparison is made with prior chest radiograph dated December 23, 2018. FINDINGS: A right-sided portacatheter is seen with the tip at the junction of the superior vena cava and right atrium. Minimal residual right pleural effusion with underlying atelectasis. Stable small right pneumothorax. RAD/Chest Insp/Exp 2 View IMPRESSION: Status post right thoracentesis with stable small right pneumothorax. Electronically Signed: Fish Mac, at 15:37 EDT , Service support ,
[2019-01-06 15:21] LABS: Cytology, Body Fluid / CSF SEE PATHOLOGY REPORT
== END ==
PROVIDERS: Family Provider Family Medicine; PCP Family Medicine; Referring Provider Student in an Organized Health Care Education/Training Program; Visit Provider Student in an Organized Health Care Education/Training Program
DX: J90 Pleural effusion, not elsewhere classified (principal); C34.31 Malignant neoplasm of lower lobe, right bronchus or lung; Z51.11 Encounter for antineoplastic chemotherapy
CPT/HCPCS: 32555; 36415; 36591; 71046; 80053; 84439; 84443; 84481; 85025; 85610; 85730; 88108; 88305; 88313; 96413; J7050; A4216; J9173

== ENCOUNTER → 2019-01-21 13:02 | Outpatient (CLI) | payer MEDICARE, SELFPAY ==
[2018-03-10 11:02] VITALS: BMI 29.9
--- NOTE | 2019-01-21 13:19 | RAD_ITS ---
STUDY: X-RAY - LUMBAR SPINE REASON FOR EXAM: Male, 68 years old. Low back pain TECHNIQUE: 2 view(s) of the lumbar spine were obtained. COMPARISON: None FINDINGS: Normal lumbar lordosis. There is no substantial scoliosis. There is a normal alignment of the vertebrae. There is multilevel endplate spondylosis of the lumbar vertebrae. There is multi-level degenerative disc disease with multi-level disc space narrowing. There is no demonstrated fracture. There is atherosclerotic calcification of the abdominal aorta without a demonstrated aneurysm. RAD/Lumbar Spine 2 or 3 Views IMPRESSION: Degenerative changes of the spine, as detailed above. Electronically Signed: Ziggy Blevins MD at 14:14 EDT , Service support ,
== END ==
PROVIDERS: Family Provider Internal Medicine; PCP Internal Medicine; Referring Provider Anesthesiology Pain Medicine; Visit Provider Anesthesiology Pain Medicine
DX: M54.9 Dorsalgia, unspecified (principal)
CPT/HCPCS: 72100

== ENCOUNTER → 2019-02-03 16:02 | Outpatient (CLI) | payer MEDICARE, SELFPAY ==
[2018-03-10 11:02] VITALS: BMI 29.9
[2019-02-03 10:13] VITALS: BMI 28.8
--- NOTE | 2019-02-03 16:11 | MRI_ITS ---
HISTORY:abnormal PET, THORACIC BACK PAIN, H/O LUNG CA abnormal PET, THORACIC BACK PAIN, H/O LUNG CA EXAMINATION: MR Spine Thoracic WO/W Contrast TECHNIQUE: Multiplanar and multisequence MR images of the thoracic spine. IV Contrast dosage and agent: 18 cc of dotarem intravenously COMPARISON: None FINDINGS: Study is mildly limited by motion No gross abnormality is seen within the thoracic spinal cord. No areas of enhancement are noted within the spinal cord. The conus appears within normal limits and ends at the level of T12-L1 Multilevel marjorie nodes are seen within the thoracic spine There is abnormal signal seen within the T11 vertebral body with a linear area of low signal on T1-weighted images paralleling the superior endplate compatible with a fracture. This demonstrates increased signal on STIR-weighted imaging compatible with an acute fracture. This area does enhance with contrast. I do not see significant enhancement extending into the posterior elements. There is edema and enhancement however that is seen at the right lateral aspect of the T12 vertebral body. There is a enhancing soft tissue density that is seen along the right hemithorax in this region This area measures approximately 5 cm craniocaudad by approximately 5.2 cm AP by approximately 5.5 cm transverse but incompletely visualized on this study. This does appear to erode into the vertebral body at T12 on the right. This mass also abuts the right T12 nerve root. The right T11 nerve root also may be effaced laterally. There is a loculated pleural effusion that is seen superior to this mass. At T10-11 there is a right central disc protrusion effacing the ventral thecal sac but no evidence of canal stenosis. T11-12 diffuse annular bulge without evidence of canal stenosis T12-L1 osteophyte disc complex with diffuse annular bulge but no canal stenosis MRI/Spine Thoracic W/WO Contrast IMPRESSION: There is a soft tissue mass, most likely metastatic, that is seen at the level of T11 and T12 on the right. This erodes into the right T12 vertebral body. It also probably invades into the right T11 vertebral body. There is a compression fracture that is acute involving the T11 vertebral body There is probable abutment of the right T11 nerve root laterally and the right T12 nerve root also. There is a loculated right pleural effusion that is seen superior to this mass. T10-11 right central disc protrusion without evidence of canal stenosis T11-12 diffuse annular bulge without evidence of canal stenosis T12-L1 osteophyte disc complex with diffuse annular bulge but no evidence of canal stenosis at 2008 Reported and signed by: Mary Ovalles DO Electronically Signed: Mary Ovalles DO at 20:06 EDT Tel , Service support ,
== END ==
PROVIDERS: Family Provider Family Medicine; PCP Family Medicine; Visit Provider Student in an Organized Health Care Education/Training Program
DX: M54.6 Pain in thoracic spine (principal)
CPT/HCPCS: 72157; A9575

== ENCOUNTER → 2019-02-04 08:16 | Outpatient (CLI) | payer MEDICARE, SELFPAY ==
[2018-03-10 11:02] VITALS: BMI 29.9
[2019-02-03 10:13] VITALS: BMI 28.8
[2019-02-04] VITALS (9 sets, daily range): BP systolic 112–128; BP diastolic 59–78; PULSE 78–85; RESP 16–24; TEMP 37.2; O2SAT 91–100; BMI 28.8
--- NOTE | 2019-02-04 | ASPIGT_PTH ---
PATIENT: ANGEL LUIS MYRICK LOC: CT U#:[id number] AGE/SX: 74/M ROOM: RE02/04/[address]: Dr. Juan Carlos Plummer MD : 1950 BED: DIS: SPEC #: [id number] RECD: 02/04/19 10:15 STATUS: GIRMA NELSON #: [id number] JENNY: 02/04/19 00:[address]: Juan Carlos Plummer DEPT: SURGICAL PATHOLOGY RECD BY: Brina Ruby ENTERED: 02/04/19 11:16 SP TYPE: ASP RAD OTHR DR: Dr. Semaj Hancock MD Tissues: Lung, NOS Procedures: FNA Specimen Adequacy Special Stain Group II Surgery Specimen Level IV Imprint (control) HEADER OPERATION: CT guided lung biopsy PRE-OP DIAGNOSIS: Right pleural mass TISSUE SUBMITTED: Right pleural lesion, CT guided core biopsy MICROSCOPIC DIAGNOSIS Right pleural lesion, CT-guided core biopsy: Consistent with metastatic non-small cell carcinoma, favor squamous cell carcinoma. See comment. SJ:rg 02/05/19 COMMENT The specimen is evaluated at the time of biopsy by Dr. Guerrero. Immediate Evaluation = Malignant cells present derived from non-small cell carcinoma. Immunohistochemistry ([id number]) supports the above diagnosis. Please make reference to previous specimen ([id number]) RML, endobronchial biopsy with diagnosis of non-small cell carcinoma, favor squamous cell carcinoma and corresponding cytology specimen ([id number]) right hilar mass, TBNA with diagnosis of malignant cells present derived from non-small cell carcinoma, favor squamous cell carcinoma. Case has been reviewed in consultation with Dr. Escamilla who concurs with the above diagnosis. IDC:AM MICROSCOPIC DESCRIPTION Slides are reviewed. GROSS DESCRIPTION Received in fixative is one container labeled with the patient's name and designated right pleural lesion, CT-guided core biopsy. The specimen consists of multiple irregular fragments of spangler soft tissue that in aggregate measure 2 x 0.1 x 0.1 cm. The entire specimen is submitted in one cassette. One touch imprint is prepared at the time of core biopsy. / BOB:sonali 02/04/19 TC:0 CPT: 03050, 39250
--- NOTE | 2019-02-04 | IMM_PTH ---
PATIENT: ANGEL LUIS MYRICK LOC: CT U#:[id number] AGE/SX: 74/M ROOM: RE02/04/[address]: Dr. Juan Carlos Plummer MD : 1950 BED: DIS: SPEC #: [id number] RECD: 02/05/19 13:27 STATUS: GIRMA REJazmín #: [id number] JENNY: 02/04/19 00:[address]: Juan Carlos Plummer DEPT: IMMUNOHISTOCHEMISTRY RECD BY: Leola Ji ENTERED: 02/05/19 13:32 SP TYPE: IMMUNO OTHR DR: Dr. Semaj Hancock MD Tissues: Pleura, NOS Procedures: RCC (add) NAPSIN A (add) Eric Ret (add) CK20 (add) CK5-6 (add) CK7 (add) CK8 (add) HEP PAR (add) TTF1 (add) Vimentin (add) Pankeratin (initial) P40 (add) PSAP (add) PHYSICIAN & [place] [id number] SPECIMEN INFORMATION: Tissue Source: Right pleural lesion Clinical Info: Right pleural mass Specimen Number: [id number] CPT code: 75035, 77998 x12 METHODOLOGY: Deparaffinized sections of prefer/formalin-fixed tissue or PAP/DQ stained slides are incubated with monoclonal/polyclonal antibodies/oligonucleotide probes. Localization is made via biotin free immunoperoxidase method. Appropriate controls are performed and reacted as expected. Results on target cell population are indicated in the following table: RESULTS: ANTIBODY / CLONE RESULT AE1-3 (AE1/AE3/PCK26) positive CK7 (OV-TL12/30) negative CK8 (49oimmU72) positive CK20 (KS20.8) negative Vimentin (V9) negative TTF-1 (8G7G3/1) negative Napsin A (Rabbit Polyclonal) negative HepPar (OCh1E5) negative RCC (PN-15) negative PSAP (PASE/4LJ) negative CALRET (polyclonal) negative (a few cells with nonspecific staining) CK5-6 (D5 & 1684) positive P40 (BC28) positive These tests were developed and their performance characteristics determined by [facility]. They may not have been cleared or approved by the U.S. Food and Drug Administration. The FDA has determined that such clearance or approval is not necessary. INTERPRETATION: Right pleural lesion, CT-guided core biopsy: Consistent with metastatic non-small cell carcinoma, favor squamous cell carcinoma. SJ:sonali 02/06/19 Case has been reviewed in consultation with Dr. Escamilla who concurs with the above diagnosis. IDC:AM
--- NOTE | 2019-02-04 08:18 | CT_ITS ---
PROCEDURE: CT GUIDED biopsy of the anterior right pleural mass. DATE: February 04, 2019. INDICATION: Male, 68 years old. Metastatic lung cancer. PHYSICIAN: Fish Mac M.D. RADIATION DOSAGE (If Supplied By Facility): CTDIvol = ( 16 ) mGy, DLP = ( 662.75 ) mGycm. Individualized dose optimization techniques were utilized. PROCEDURE: The risks, benefits, and alternatives to the procedure were explained to the patient. The specific risk of hemorrhage requiring further treatment or intervention was detailed and accepted. Follow-up instructions were discussed with the patient as well. Written informed consent was obtained. The patient was brought into the CT suite and placed in the supine position. . An appropriate entry site was identified. The overlying skin was prepped and draped in the usual sterile fashion. 1% lidocaine was administered subcutaneously for local anesthesia. Conscious sedation was performed. The patient received 2 mg of Versed and 50 mcg fentanyl intravenously. Conscious sedation was started at 9:36 AM and terminate at 9:53 AM. The patient was independently monitored by the department nurse. Under CT guidance, a total of 4 passes were performed with a 18-gauge core biopsy needle. The specimens were then placed in the appropriate foot and transported to the laboratory for analysis. Hemostasis was obtained. The patient tolerated the procedure well without immediate complications. CT/Biopsy/Inj or Needle Placement IMPRESSION: Successful CT guided biopsy of the right anterior pleural mass, as described above. The coccyx sedation protocol was followed. Electronically Signed: Fish Mac, at 10:51 EDT , Service support ,
[2019-02-04] MEDS: 0.9% Saline Lock 10 ML Syringe IV ×2 (08:55→09:55)
[2019-02-04 09:05] LABS: Absolute Neutrophil Count 7.5 X10^3/uL (2.0-7.7); Basophil# 0.02 X10^3/uL; Basophil% 0.2 % (0-1); Eosinophil# 0.07 X10^3/uL; Eosinophils% 0.8 % (0-5); Hematocrit 26.3 % (40-54); Hemoglobin 8.3 g/dL (13.0-16.5); Lymphocyte % 4.5 % (19-41); Mean Corp Hgb Conc 31.6 g/dL (32-36); Mean Corpuscular Hgb 28.1 pg (27.0-32.0); Mean Corpuscular Volume 89.2 fL (80-94); Mean Platelet Vol. 8.5 fl (6.2-12.0); Monocyte# 0.87 X10^3/uL; Monocyte% 9.8 % (0-10); NRBC Flagged by Analyzer 0 % (0-5); Neutrophil # 7.45 X10^3/uL (2.7-7.7); Neutrophil % 83.8 % (47-70); POSITIVE DIFFERENTIAL YES; Platelet Count 178 K/mm3 (150-450); RBC Distribution Width CV 14.6 % (11.6-14.6); Red Blood Count 2.95 M/mm3 (4.6-6.2); White Blood Count 8.9 K/mm3 (4.4-11.0)
[2019-02-04 09:08] LABS: Differential Indicated SCAN CRITERIA MET
[2019-02-04 09:14] LABS: International Normalized Ratio 1.2; Partial Thromboplast Time 32.9 Seconds (24.1-36.2); Prothrombin Time (Protime)PT. 14.8 SECONDS (11.7-14.9)
[2019-02-04] MEDS: Midazolam 2 MG/2 ML Syringe IV (09:36)
[2019-02-04] MEDS: fentaNYL 100 MCG/2 ML Ampul IV (09:36)
[2019-02-04 09:41] LABS: Hypochromasia 1+
--- NOTE | 2019-02-04 10:00 | RAD_ITS ---
STUDY: X-RAY CHEST REASON FOR EXAM: Male, 68 years old. Post right pleural biopsy. TECHNIQUE: AP inspiration and expiration views. COMPARISON: Comparison is made with prior study dated January 06, 2019. FINDINGS: Since prior study, there is been an increase in the right pleural effusion with underlying infiltration and/or atelectasis. No evidence of pneumothorax. RAD/Chest Insp/Exp 2 View IMPRESSION: No evidence of pneumothorax on the post right pleural biopsy. Electronically Signed: Fish Mac, at 12:17 EDT , Service support ,
== END ==
PROVIDERS: Family Provider Family Medicine; PCP Family Medicine; Referring Provider Internal Medicine Hematology & Oncology; Visit Provider Internal Medicine Hematology & Oncology
DX: C34.2 Malignant neoplasm of middle lobe, bronchus or lung (principal); C79.9 Secondary malignant neoplasm of unspecified site; J90 Pleural effusion, not elsewhere classified; J44.9 Chronic obstructive pulmonary disease, unspecified; I10 Essential (primary) hypertension; E78.5 Hyperlipidemia, unspecified
CPT/HCPCS: 32400; 71046; 77012; 77014; 77290; 77332; 85025; 85610; 85730; 88172; 88305; 88313; 88341; 88342; 99156; 99157; J7040; Q9967; A4216

== ENCOUNTER 2019-02-14 20:11 | Emergency (ER) | payer MEDICARE, SELFPAY ==
[2018-03-10 11:02] VITALS: BMI 29.9
[2019-02-12 12:12] VITALS: BMI 27.8
[2019-02-14 20:11] VITALS: BP 104/52; PULSE 109; RESP 19; TEMP 37.2; O2SAT 94; BMI 28.8
[2019-02-14 21:11] VITALS: BP 97/60; PULSE 93; RESP 15; TEMP 36.6; O2SAT 98
--- NOTE | 2019-02-14 21:11 | EKG12_ITS ---
Test Reason : FEVER Blood Pressure : / mmHG Vent. Rate : 093 BPM Atrial Rate : 093 BPM P-R Int : 146 ms QRS Dur : 102 ms QT Int : 380 ms P-R-T Axes : 015 -30 015 degrees QTc Int : 472 ms Normal sinus rhythm Possible Left atrial enlargement Left axis deviation Abnormal ECG Confirmed by SEAN PATTON, GT ([id number]), television news video editor GONZALEZ GRIFFIN ([id number]) on 02/17/2019 1:24:35 PM Referred By: Juan Carlos Plummer Confirmed By:GT ESTRADA MD
[2019-02-14 21:12] VITALS: O2SAT 97
[2019-02-14 21:15] VITALS: BP 92/55; PULSE 89; RESP 15; TEMP 36.6; O2SAT 100
--- NOTE | 2019-02-14 21:16 | RAD_ITS ---
STUDY: X-RAY CHEST REASON FOR EXAM: Male, 68 years old. Fever, history of lung cancer TECHNIQUE: Single AP portable view of the chest. COMPARISON: Prior study of 02/04/2019 FINDINGS: There is a right-sided MediPort with catheter tip projecting over the distal SVC. The left lung is clear. There is a moderate right-sided effusion appearing similar to the previous study. The right cardiac margin is obscured by the effusion. There is evidence of right hemithoracic volume loss with shift of the trachea toward the right. Normal mediastinum and mercedes. Normal visualized pulmonary arteries. Normal visualized aortic arch and descending thoracic aorta. There is a thoracolumbar levoscoliosis. Normal visualized ribs, clavicles, and shoulders. There is no demonstrated abnormality of the visualized soft tissue structures of the upper abdomen. RAD/Chest 1 View (Portable) IMPRESSION: Moderate sized right-sided effusion similar to the previous study. There is evidence of right hemithoracic volume loss. Thoracolumbar levoscoliosis. Electronically Signed: Saeed Chavarria MD at 21:32 EDT , Service support ,
[2019-02-14] MEDS: 0.9% Normal Saline 1,000 ML 999 ML IV ×2 (21:51→23:00)
[2019-02-14 22:07] LABS: Absolute Lymphocyte Count 0.22 X10^3/uL (0.83-4.51); Absolute Neutrophil Count 11.7 X10^3/uL (2.0-7.7); Basophil# 0.01 X10^3/uL; Basophil% 0.1 % (0-1); Eosinophil# 0.06 X10^3/uL; Eosinophils% 0.5 % (0-5); Hematocrit 24.7 % (40-54); Hemoglobin 7.8 g/dL (13.0-16.5); Lymphocyte # 0.22 X10^3/ul (4.0); Lymphocyte % 1.7 % (19-41); Mean Corp Hgb Conc 31.6 g/dL (32-36); Mean Corpuscular Hgb 28.8 pg (27.0-32.0); Mean Corpuscular Volume 91.1 fL (80-94); Mean Platelet Vol. 8.9 fl (6.2-12.0); Monocyte# 0.72 X10^3/uL; Monocyte% 5.6 % (0-10); NRBC Flagged by Analyzer 0 % (0-5); Neutrophil # 11.73 X10^3/uL (2.7-7.7); Neutrophil % 91.3 % (47-70); POSITIVE DIFFERENTIAL YES; Platelet Count 214 K/mm3 (150-450); RBC Distribution Width CV 14.7 % (11.6-14.6); Red Blood Count 2.71 M/mm3 (4.6-6.2); White Blood Count 12.8 K/mm3 (4.4-11.0)
[2019-02-14 22:11] VITALS: BP 92/55; PULSE 92; RESP 12; O2SAT 92
[2019-02-14 22:14] LABS: International Normalized Ratio 1.2; Prothrombin Time (Protime)PT. 15.3 SECONDS (11.7-14.9)
[2019-02-14 22:15] LABS: Differential Indicated SCAN CRITERIA MET; Partial Thromboplast Time 38.8 Seconds (24.1-36.2)
[2019-02-14 22:31] LABS: ALB/GLOB Ratio 0.5 RATIO (0.9-2.4); AST(SGOT) 37 U/L (15-37); Alanine Aminotransfer ALT/SGPT 50 U/L (16-61); Alkaline Phosphatase 234 U/L (45-117); Anion Gap 8 (5-15); BUN 21 mg/dL (7-18); BUN/Creat Ratio 28.7 RATIO (10-20); Calcium,Total 8.1 mg/dL (8.5-10.1); Chloride 96 mmol/L (98-107); Creatinine, Serum 0.73 mg/dL (0.70-1.30); EST Glomerular Filtration Rate 113 mL/min (>60); Est Glom Filt Rate - Afr Amer 137 mL/min (>60); Globulin 3.9 g/dL (2.2-4.2); Glucose 111 mg/dL (74-106); Lactic Acid 1.8 mmol/L (0.4-2.0); Potassium 3.3 mmol/L (3.5-5.1); Protein, Total 5.9 g/dL (6.4-8.2); Sodium Level 132 mmol/L (136-145)
--- NOTE | 2019-02-14 22:39 | ED.DCSUM_ITS ---
- ER Visit Summary Date of Service: 02/14/19 Chief Complaint: Fever and chills History of Present Illness: The patient is a 68 M no history of lung cancer undergoing radiation therapy. Also history of anemia, hypertension and COPD on 2 L of oxygen. States tonight around 7:00 started having a fever and chills. No other symptoms. No new cough. No abdominal pain. No dysuria. No rash. No vomiting or diarrhea. Physical Examination: Older male no acute distress his blood pressure is borderline at 104/52. Temperature is 99. He is tachycardic at 109. On oxygen is 94% no hypoxia. HEENT exam unremarkable moist mucous membranes. Neck nontender no lymphadenopathy. Lungs clear to auscultation diminished on the right side with a known pleural effusion. MediPort on the right. Heart tachycardic rate about 105 no murmur. Abdomen is soft and nontender. Normal bowel sounds no peritoneal signs. Extremities moves all 4. 1+ pitting edema both lower extremities at the ankles and feet. Skin no rashes. No cellulitis. Back nontender. Neurologically he is awake alert with no focal motor deficits. Test Results: Chest x-ray one view shows a moderate to large pleural effusion on the right with the right Medpor. I did go over the films with the patient and his . White count of 12. Hemoglobin was 7.8 which is his baseline anemia. Electrolytes show sodium 132. Potassium 3.3. Normal gap. Normal creatinine 0.7. Alk phos slightly elevated to 34. Urinalysis . He has 5-10 white cells but no bacteria and no nitrites. Lactic acid1.8. Blood and urine cultures have been ordered. Emergency Department Course and Treatment: Patient was initially treated with 1 L currently his blood pressure is 99/54 and he will be given a second liter. Repeat exam at 0002 AM. Patient is doing well. We went over all his test results. Currently his blood pressure is 107/56. I discussed with both he and his about admission for further work-up and evaluation versus being discharged home. He absolutely did not want to be admitted and felt comfortable going home and said he is feeling fine currently. Treatment Plan: Plenty of fluids and rest. Return if feeling worse. Follow-up with Dr. Wilson on Saturday. Disposition: Discharge Impression: Acute fever of uncertain etiology Transient hypotension History of lung CA with a moderate to large right pleural effusion MediPort This note was generated with [employer] dictation software. It may contain incorrect words, spelling, and punctuation that were not noted in review of the chart prior to signing ED Disposition - Plan for ED Patient: Referrals: Magnolia Wilson MD [Primary Care Provider] -
[2019-02-14 22:46] LABS: Differential Comment SCANNED
[2019-02-14 22:58] VITALS: BP 107/65; PULSE 92; RESP 25; O2SAT 100
[2019-02-14 23:46] LABS: Bacteria 0 SEEN /hpf (None Seen); Mucous, Urine 0 SEEN /hpf (<or=2+)
[2019-02-14 23:48] LABS: Color, Urine Yellow (Yellow); Glucose, Dipstick Normal (Normal); Ketone-Dipstick Negative (Negative); Leukocyte Esterase-Dipstick Negative /ul (Negative); Nitrite-Dipstick Negative (Negative); Occult Blood-Urine 50 /ul (Negative); Protein-Dipstick 30 mg/dl (Negative); Urine Bilirubin Dipstick Negative (Negative); Urine Clarity Clear (Clear); Urine Urobilinogen 1 mg/dl (Normal)
[2019-02-14 23:53] LABS: Amorphous Sediment 2+; White Blood Cells 5-10 SEEN /hpf (0-5)
[2019-02-14 23:54] LABS: Red Blood Cells-Urine 0-5 SEEN /hpf (0-5); Squamous Epithelial Cells - UA 0-5 SEEN /hpf (0-5)
[2019-02-15 00:02] VITALS: BP 104/58; PULSE 92; RESP 13; TEMP 37.2; O2SAT 100
--- NOTE | 2019-02-15 00:06 | ED.DEP ---
ED Disposition - Plan for ED Patient: Disposition: Home or Assisted Living Instructions: Axillary Temperature, FEBRILE ILLNESS, Uncertain Cause (Adult) Referrals: Magnolia Wilson MD [Primary Care Provider] - 1-2 Days if not improving Additional Instructions: Tylenol for fever. Plenty fluids and rest. Follow-up with your doctor on Saturday or return to the ER if you are feeling worse.
[2019-02-15 01:00] VITALS: BP 104/58; PULSE 92; RESP 15; O2SAT 100
== END 2019-02-15 01:37 | disposition home or self-care (01) ==
PROVIDERS: Emergency Provider Emergency Medicine; Family Provider Internal Medicine; PCP Internal Medicine
DX: R50.9 Fever, unspecified (principal); I95.9 Hypotension, unspecified; C34.90 Malignant neoplasm of unspecified part of unspecified bronchus or lung; J90 Pleural effusion, not elsewhere classified; J44.9 Chronic obstructive pulmonary disease, unspecified; I10 Essential (primary) hypertension; D64.9 Anemia, unspecified; R60.9 Edema, unspecified; R00.0 Tachycardia, unspecified; Z99.81 Dependence on supplemental oxygen; Z79.899 Other long term (current) drug therapy
CPT/HCPCS: 36591; 71045; 80053; 81001; 83605; 85025; 85610; 85730; 87040; 87086; 93005; 96360; 96361; 99285; J7030

== ENCOUNTER → 2019-02-18 14:02 | Outpatient (CLI) | payer MEDICARE, SELFPAY ==
[2018-03-10 11:02] VITALS: BMI 29.9
[2019-02-14 20:11] VITALS: BMI 28.8
--- NOTE | 2019-02-18 14:07 | VDLE_ITS ---
Reason For Study: SWELLING RIGHT LEFT GSV is normal. GSV is normal. CFV is compressible, spontaneous, phasic, CFV is compressible, spontaneous, phasic, competent and demonstrates normal competent, and demonstrates normal augmentation. augmentation. FV is compressible, spontaneous, phasic, FV is compressible, spontaneous, phasic, competent and demonstrates normal competent and demonstrates normal augmentation. augmentation. POP V is compressible, spontaneous, phasic, POP V is compressible, spontaneous, phasic, competent and demonstrates normal competent and demonstrates normal augmentation. augmentation. T/P Trunk is compressible. T/P Trunk is compressible. PTV is compressible. PTV is compressible. RT PerV is compressible. LT PerV is compressible. Procedure Exam performed in department. A preliminary report was called and/or faxed to MICAH ENG. Interpretation Summary No evidence for acute deep venous thrombosis bilateral lower extremities with patent and compressible bilateral great saphenous veins. Ordering Physician: Micah Eng Referring Physician: ZEESHAN REIS Performed By: Suly Suazo, RDCS, RVT
--- NOTE | 2019-02-18 16:30 | RAD_ITS ---
STUDY: X-RAY CHEST REASON FOR EXAM: Male, 68 years old. Bilateral lower extremity edema and elevated white blood cell TECHNIQUE: PA and lateral COMPARISON: February 14, 2019 FINDINGS: There is a moderate partially loculated right pleural effusion with consolidation of the right lower and middle lobes.. Mediport catheter seen on the right with tip in distal superior vena cava Normal size heart. Normal mediastinum and mercedes. Normal visualized pulmonary arteries. Normal visualized aortic arch and descending thoracic aorta. Dorsal spine demonstrates scoliosis and degenerative changes. Normal visualized ribs, clavicles, and shoulders. There is no demonstrated abnormality of the visualized soft tissue structures of the upper abdomen. No significant change since prior study RAD/Chest PA and Lateral IMPRESSION: Moderate size pleural effusion with consolidation of the right middle and lower lobes Electronically Signed: Semaj Rockwell MD at 16:46 EDT , Service support ,
== END ==
PROVIDERS: Family Provider Internal Medicine; PCP Family Medicine; Referring Provider Nurse Practitioner Family; Visit Provider Nurse Practitioner Family
DX: M79.89 Other specified soft tissue disorders (principal); R50.9 Fever, unspecified; D72.829 Elevated white blood cell count, unspecified; C34.2 Malignant neoplasm of middle lobe, bronchus or lung
CPT/HCPCS: 71046; 77336; 77386; 80048; 83735; 85025; 86850; 86900; 86901; 86920; 86922; 87040; 93970

== ENCOUNTER → 2019-02-25 12:20 | Outpatient (CLI) | payer MEDICARE, SELFPAY ==
[2018-03-10 11:02] VITALS: BMI 29.9
[2019-02-14 20:11] VITALS: BMI 28.8
--- NOTE | 2019-02-25 12:23 | US_ITS ---
PROCEDURE: ULTRASOUND GUIDED THORACENTESIS. DATE: February 25, 2019. INDICATION: Male, 68 years old. Right pleural effusion. PHYSICIAN: Fish Mac M.D. PROCEDURE: The risks, benefits, and alternatives to the procedure were explained to the patient. The specific risks of bleeding, infection, and pneumothorax requiring chest tube insertion were discussed and accepted. Written informed consent was obtained. Ultrasonographic evaluation of the right lower pleural space was carried out. An adequate pocket was identified. The patient was placed in the sitting, upright position. The overlying skin was prepped and draped in sterile fashion. 1% lidocaine was administered subcutaneously for local anesthesia. Under ultrasound guidance, a 5 Australian thoracentesis needle/catheter system was advanced into the right posterior lower pleural fluid collection. Approximately 200 mL of carolin-colored fluid was drained. The catheter was removed, and a sterile dressing was applied. A specimen was collected and sent to the laboratory for analysis, as requested by the referring clinician. The patient tolerated the procedure well. A chest x-ray was ordered. US/Thoracentesis W US IMPRESSION: Ultrasound-guided right thoracentesis. Electronically Signed: Fish Mac, at 14:38 EDT , Service support ,
--- NOTE | 2019-02-25 13:20 | RAD_ITS ---
STUDY: X-RAY CHEST REASON FOR EXAM: Male, 68 years old. Status post right thoracentesis. TECHNIQUE: PA inspiration expiration views. COMPARISON: Comparison is made with prior examination of February 18, 2019. FINDINGS: The patient is status post right thoracentesis. There is no evidence of pneumothorax. Residual pleural parenchymal changes are seen at the right lung base. RAD/Chest Insp/Exp 2 View IMPRESSION: Status post right thoracentesis. There is no evidence of pneumothorax. Residual pleural parenchymal changes at the right lung base. Electronically Signed: Fish Mac, at 13:37 EDT , Service support ,
[2019-02-25 13:43] VITALS: BP 107/56; BP 107/64; BP 109/53; BP 96/51; PULSE 115; PULSE 116; PULSE 118; RESP 18; RESP 20; O2SAT 100; O2SAT 99
== END ==
PROVIDERS: Family Provider Internal Medicine; PCP Internal Medicine; Referring Provider Student in an Organized Health Care Education/Training Program; Visit Provider Student in an Organized Health Care Education/Training Program
DX: J90 Pleural effusion, not elsewhere classified (principal)
CPT/HCPCS: 32555; 71046

== ENCOUNTER → 2019-03-19 15:50 | Outpatient (CLI) | payer MEDICARE, SELFPAY ==
[2018-03-10 11:02] VITALS: BMI 29.9
[2019-03-18 10:44] VITALS: BMI 28.0
--- NOTE | 2019-03-19 15:56 | RAD_ITS ---
STUDY: X-RAY CHEST REASON FOR EXAM: Male, 68 years old. COUGH, SOB TECHNIQUE: Frontal and lateral views of the chest. COMPARISON: 02/25/2019 FINDINGS: Stable appearance of right Mediport catheter terminating in mid SVC. Stable volume loss of the right lung. Stable opacification of the lower right hemithorax where there is atelectasis or infiltrate with pleural effusion. Mass is not excluded. Incomplete aeration of the upper right lung. Left lung is clear. Grossly normal size heart. Normal mediastinum and mercedes. Normal visualized pulmonary arteries. Normal visualized aortic arch and descending thoracic aorta. There are diffuse degenerative changes of the visualized thoracic spine. Several wedge deformities of the thoracic spine generally stable. Normal visualized ribs, clavicles, and shoulders. There is no demonstrated abnormality of the visualized soft tissue structures of the upper abdomen. RAD/Chest PA and Lateral IMPRESSION: No significant change. Prominent opacification of the lower half of the right lung where there is atelectasis or infiltrate with pleural effusion. Mass is not excluded. Electronically Signed: Antwan Curran MD at 19:09 EDT , Service support ,
== END ==
PROVIDERS: Family Provider Internal Medicine; PCP Internal Medicine; Referring Provider Student in an Organized Health Care Education/Training Program; Visit Provider Student in an Organized Health Care Education/Training Program
DX: R05 Cough (principal); D64.9 Anemia, unspecified
CPT/HCPCS: 71046; 86644; P9040

== ENCOUNTER → 2019-04-24 12:10 | Outpatient (CLI) | payer MEDICARE, SELFPAY ==
[2018-03-10 11:02] VITALS: BMI 29.9
[2019-04-16 11:10] VITALS: BMI 26.2
--- NOTE | 2019-04-24 12:14 | RAD_ITS ---
STUDY: X-RAY CHEST REASON FOR EXAM: Male, 68 years old. Dyspnea TECHNIQUE: PA and lateral views of the chest. COMPARISON: March 19, 2019 chest x-ray FINDINGS: There is opacity of the right lower lobe and right middle lobe. There are vague increased interstitial markings within the left lung base worse than prior study. There is no demonstrated pleural abnormality. Normal size heart. Normal mediastinum and mercedes. Normal visualized pulmonary arteries. Normal visualized aortic arch and descending thoracic aorta. There are diffuse degenerative changes of the visualized thoracic spine. Normal visualized ribs, clavicles, and shoulders. There is no demonstrated abnormality of the visualized soft tissue structures of the upper abdomen. RAD/Chest PA and Lateral IMPRESSION: Persistent, opacification of the right lower lobe suspicious persistent pleural effusion possible loculation. Increasing density in the left lower lobe which may represent infiltrate and/or atelectasis. Electronically Signed: Mary Randolph MD at 13:19 EDT Tel , Service support ,
== END ==
PROVIDERS: Family Provider Internal Medicine; PCP Internal Medicine; Referring Provider Nurse Practitioner Acute Care; Visit Provider Nurse Practitioner Acute Care
DX: J90 Pleural effusion, not elsewhere classified (principal)
CPT/HCPCS: 71046

== ENCOUNTER → 2019-05-01 13:37 | Outpatient (CLI) | payer MEDICARE, SELFPAY ==
[2018-03-10 11:02] VITALS: BMI 29.9
[2019-04-16 11:10] VITALS: BMI 26.2
[2019-04-29 11:22] VITALS: BMI 26.2
--- NOTE | 2019-05-01 | FLU_PTH ---
PATIENT: ANGEL LUIS MYRICK LOC: [facility]#:[id number] AGE/SX: 74/M ROOM: RE05/01/[address]: SUZANNE Dunbar : 1950 BED: DIS: SPEC #: [id number] RECD: 05/01/19 15:21 STATUS: GIRMA NELSON #: [id number] JENNY: 05/01/19 00:[address]: Karen Desir NP DEPT: CYTOLOGY RECD BY: Brina Ruby ENTERED: 05/04/19 08:43 SP TYPE: Fluid OTHR DR: Dr. Magnolia Wilson MD Tissues: THORACIC FLUID Procedures: Special Stain Group II Surgery Specimen Level IV Cytospin Fluid HEADER OPERATION: Ultrasound guided right thoracentesis PRE-OP DIAGNOSIS: Pleural effusion TISSUE SUBMITTED: Thoracentesis fluid for cytology DIAGNOSIS CYTOLOGY Thoracentesis fluid for cytology (cytospin and cell block): Negative for malignant cells. See comment. BOB:sonali 05/05/19 COMMENT The specimen is paucicellular and bloody. Clinical correlation and appropriate follow up are necessary. Please make reference to previous specimen ([id number]), hilar mass, TBNA with diagnosis of malignant cells present derived from non-small cell carcinoma, favor squamous cell carcinoma and ([id number]) right pleural lesion, CT-guided core biopsy with diagnosis of consistent with metastatic non-small cell carcinoma, favor squamous cell carcinoma. CYTOLOGY STUDY Slides are reviewed. CYTOLOGY GROSS Received is 210 ml of carolin cloudy fluid labeled with the patient's name and and designated per the requisition as right thoracentesis. Submitted for cytology preparation including cell block. /CC:cc 05/04/19 TC:5 CPT: 44079, 39634
--- NOTE | 2019-05-01 13:39 | US_ITS ---
PROCEDURE: ULTRASOUND GUIDED THORACENTESIS. DATE: May 01, 2019. INDICATION: Male, 68 years old. Right pleural effusion PHYSICIAN: Fish Mac M.D. PROCEDURE: The risks, benefits, and alternatives to the procedure were explained to the patient. The specific risks of bleeding, infection, and pneumothorax requiring chest tube insertion were discussed and accepted. Written informed consent was obtained. Ultrasonographic evaluation of the right lower pleural space was carried out. An adequate pocket was identified. The patient was placed in the sitting, upright position. The overlying skin was prepped and draped in sterile fashion. 1% lidocaine was administered subcutaneously for local anesthesia. Under ultrasound guidance, a 5French thoracentesis needle/catheter system was advanced into the right posterior lower pleural fluid collection. Approximately 220 mL of carolin-colored fluid was drained. The catheter was removed, and a sterile dressing was applied. A specimen was collected and sent to the laboratory for analysis, as requested by the referring clinician. The patient tolerated the procedure well. A chest x-ray was ordered. US/Thoracentesis W US IMPRESSION: Ultrasound-guided right thoracentesis. Electronically Signed: Fish Mac, at 15:46 EDT , Service support ,
[2019-05-01 13:55] LABS: Anion Gap 10 (5-15); BUN 18 mg/dL (7-18); BUN/Creat Ratio 24.9 RATIO (10-20); Calcium,Total 9.1 mg/dL (8.5-10.1); Chloride 86 mmol/L (98-107); Creatinine, Serum 0.72 mg/dL (0.70-1.30); EST Glomerular Filtration Rate 115 mL/min (>60); Est Glom Filt Rate - Afr Amer 139 mL/min (>60); Glucose 123 mg/dL (74-106); Potassium 4.4 mmol/L (3.5-5.1); Sodium Level 125 mmol/L (136-145)
[2019-05-01 14:14] LABS: International Normalized Ratio 1.1; Prothrombin Time (Protime)PT. 14.4 SECONDS (11.7-14.9)
[2019-05-01 14:48] VITALS: BP 111/57; PULSE 105; RESP 28; O2SAT 95
--- NOTE | 2019-05-01 14:56 | RAD_ITS ---
STUDY: X-RAY CHEST REASON FOR EXAM: Male, 68 years old. Status post right thoracentesis. TECHNIQUE: AP inspiration and expiration views. COMPARISON: Comparison is made with prior study April 24, 2019. FINDINGS: Residual pleural parenchymal changes at the right lung base. There is no evidence of pneumothorax. RAD/Chest Insp/Exp 2 View IMPRESSION: No evidence of pneumothorax. Residual pleural parenchymal changes at the right lung base. Electronically Signed: Fish Mac, at 15:13 EDT , Service support ,
--- NOTE | 2019-05-01 15:02 | NURSING ---
CHEST XRAY COMPLETED. AWAITING DR MCFARLAND'S READ. PT RESTING COMFORTABLY.
[2019-05-01 15:03] VITALS: BP 117/66; PULSE 102; RESP 30; O2SAT 95
[2019-05-01 15:08] VITALS: BP 112/70; PULSE 105; RESP 30; O2SAT 97
[2019-05-01 15:20] LABS: Cytology, Body Fluid / CSF SEE PATHOLOGY REPORT
[2019-05-01 16:08] LABS: LDH,Body Fluid 163 Units/l (Not Establ.); Protein, Body Fluid 2.8 g/dL (Not Establ.)
[2019-05-01 20:03] LABS: Lymphocytes 15 %; Macrophages 47 %; Monocytes 9 %; Neutrophil (Segs) 22 %
[2019-05-01 20:04] LABS: Appearance/Body Fluid CLEAR; Color/Body Fluid YELLOW; Mesothelial Cells 7 %
[2019-05-01 20:06] LABS: Auto B Fluid Analyzer BKGD Ct COUNTS W/IN LIMITS (W/IN LIMITS); Source- Body Fluid PLEURAL FLUID
[2019-05-01 20:07] LABS: White Blood Count/Body Fluid 0.023 10^3/uL
[2019-05-01 20:09] LABS: Body Fluid QC Type(s) BF1Q; Red Cell Count/Body Fluid 561 /mm3
[2019-05-04 12:00] LABS: Pathologist Comment/Body Fluid Reviewed
== END ==
PROVIDERS: Family Provider Internal Medicine; PCP Internal Medicine; Referring Provider Nurse Practitioner Acute Care; Visit Provider Nurse Practitioner Acute Care
DX: J90 Pleural effusion, not elsewhere classified (principal); E87.1 Hypo-osmolality and hyponatremia
CPT/HCPCS: 32555; 71046; 80048; 83615; 84157; 85610; 87070; 87075; 87205; 88108; 88305; 88313; 89050